=== PATIENT | female | born 1930 | race Caucasian/White ===

== ENCOUNTER → 2016-03-11 | Outpatient (CLI) | payer OTHER ==
[~2016-03-11] MED LIST: ACET325T96 PO; ACET650S10 PR; ALBINS/ INH; ALBU2SYP9 INH; ALEN1TAB PO; AMLO-110 PO; AMOX500C3 PO; APIX1TAB PO; ATOR-24 PO; AZIT500T PO; BENZ100C7 PO; BISA10SU7 PR; BMX1 PO; BUME0.5T3 PO; CALC200T PO; CALC600T9 PO; CEFD300C3 PO; CHOL100010 PO; CHOL20007 PO; CLOP1TAB15 PO; CMD4 PO; DEXT40GE MT; DIGO0.1219 PO; DOXY100C76 PO; DRGTP25 TD; FRRS300 PO; FSMD/70 PO; GABA-113 PO; GFNSR600 PO; GLGKIT IM; GUAI100S16 PO; INSDGI SC; INSDGIPEN SC; INSU1INJ2 SC; IPRASOL4 INH; LACT1TAB26 PO; LATA0.009 OPB; LATA0.5S OPB; LEVO25TA5 PO; LEVO50TA6 PO; LIQUID PROTEIN PO; LNX125 PO; LXP/10 PO; MAGN400T6 PO; MCRK20 PO; METO25TA56 PO; MISCCAP80 PO; MOML PO; MTR500 PO; MULT-506 PO; NVLG SC; NVLGI SC; ONDA4TAB10 SL; OXGN; POTA-74 PO; PRD10 PO; PRLSR20 PO; ROPI0.5T15 PO; RQP25 PO; SALI1SPR3 NAE; SENN1TAB77 PO; SERT50TA PO; SKIN PREP TOP; SODIENE PR; SPRIN PO; SYMIN160 INH; TIOTCAP INH; TRAM-10 PO; TRIA0.1C2 TOP; UMEC1AER PO; UMEC1INH INH; VANC5CAP PO; WARF3TAB PO; WARF3TAB6 PO; WARF4TAB PO; WARF4TAB8 PO; WARF6TAB PO; ZNTT/150 PO; [UNRECOGNIZED DRUG - CODE] OPB; [UNRECOGNIZED DRUG - CODE] PO
[2016-03-11 09:51] LABS: ESTIMATED AVERAGE GLUCOSE 169 mg/dl; HA1C FLAG Normal (Normal)
== END | disposition home or self-care (01) ==
LOC: C.LABUPBEA 09:00
PROVIDERS: ATTEND Family Medicine
DX: E11.9 Type 2 diabetes mellitus without complications (principal); E55.9 Vitamin D deficiency, unspecified

== ENCOUNTER → 2016-03-13 | Outpatient (CLI) | payer OTHER | LOC: C.LABUPBEA 10:59 | PROVIDERS: ATTEND Family Medicine | DX: E03.9 Hypothyroidism, unspecified (principal) ==

== ENCOUNTER 2016-03-28 23:04 | Inpatient (IN) | payer OTHER ==
[~2016-03-28] VITALS: Ht 162.6 cm; Wt 91.9 kg
[~2016-03-28 23:04] MED LIST changes: -ACET650S10 PR; -ALBINS/ INH; -ALBU2SYP9 INH; -AMOX500C3 PO; -APIX1TAB PO; -ATOR-24 PO; -AZIT500T PO; -BENZ100C7 PO; -BISA10SU7 PR; -BMX1 PO; -CALC200T PO; -CEFD300C3 PO; -CHOL20007 PO; -CLOP1TAB15 PO; -CMD4 PO; -DEXT40GE MT; -DOXY100C76 PO; -DRGTP25 TD; -FRRS300 PO; -FSMD/70 PO; -GFNSR600 PO; -GLGKIT IM; -GUAI100S16 PO; -INSDGIPEN SC; -INSU1INJ2 SC; -IPRASOL4 INH; -LACT1TAB26 PO; -LATA0.5S OPB; -LIQUID PROTEIN PO; -LNX125 PO; -MCRK20 PO; -MISCCAP80 PO; -MOML PO; -MTR500 PO; -NVLG SC; -ONDA4TAB10 SL; -PRD10 PO; -ROPI0.5T15 PO; -SERT50TA PO; -SODIENE PR; -SPRIN PO; -TRIA0.1C2 TOP; -UMEC1AER PO; -VANC5CAP PO; -WARF3TAB6 PO; -WARF4TAB8 PO; -WARF6TAB PO; -ZNTT/150 PO; -[UNRECOGNIZED DRUG - CODE] PO
[2016-03-28] MEDS ORDERED: ALBUT/IPRATROP 3MG/0.5MG NEB 3 ML VIAL INH ONE (23:15)
--- NOTE | 2016-03-28 23:18 | EMERGENCY ROOM VISIT NOTE ---
History Report prepared by Bill: Avi Kauffman Under the Supervision of: Dr. Michael Man M.D. First contact with patient: 23:06 Chief Complaint: SHORTNESS OF BREATH Stated Complaint: SHORTNESS OF BREATH/ABDOMINAL PAIN History of Present Illness The patient is a 86 year old female who presents to the Emergency Room with complaints of persistent lower abdominal pain beginning this evening. Per EMS, she has lower abdominal discomfort and denies chest pain and shortness of breath. She was on nighttime BiPAP and is normally on 4 L of oxygen. She has a pacemaker. The patient comes from [facility]. The patient reports having a cough for 2 to 4 years. Source of History: patient, EMS Onset: this evening Position: abdomen Quality: other (abdominal discomfort) Timing: other (persistent) Associated Symptoms: + cough (for 2 to 4 years), No SOB, No chest pain Review of Systems See HPI for pertinent positives & negatives. A total of 10 systems reviewed and were otherwise negative. Past Medical & Surgical Medical Problems: (1) ATRIAL FIBRILLATION (2) CELLULITIS OF LEG (3) CHRONIC KIDNEY DISEASE, STAGE II (MILD) (4) Chronic obstructive lung disease (5) Colonoscopy (6) Congestive Heart Failure (7) COPD (8) Coronary artery disease (9) Diabetes (10) Heart Disease (11) HYPERLIPIDEMIA NEC/NOS (12) Hypertension (13) HYPERTENSION NOS (14) METHICILLIN RESISTANT STAPHYLOCOCCUS AUREUS ELSEWHERE/NOS (15) PERIPH VASCULAR DIS NOS (16) SEPSIS Family History Unobtainable due to patient's condition Social History Smoking Status: Unknown if Ever Smoked Alcohol Use: none Drug Use: none Marital Status: Housing Status: halfway Occupation Status: retired Current/Historical Medications Scheduled Alendronate Sodium (Binosto), 70 MG PO MONDAYS Amlodipine (Norvasc), 5 MG PO DAILY Atorvastatin (Lipitor), 40 MG PO DAILY Bepotastine Besilate (Bepreve), 1 DROP OPB BID Budesonide/Formoterol Fumarate (Symbicort 160/4.5 Inhaler ), 2 PUFFS INH BID Bumetanide (Bumetanide), 1.5 MG PO BID Calcium Carbonate-Vitamin D (Calcium + D), 1 TAB PO BID Cholecalciferol (Vitamin D3), 2,000 UNITS PO DAILY Clopidogrel (Plavix), 75 MG PO DAILY Digoxin (Digoxin), 0.125 MG PO HS Escitalopram Oxalate (Lexapro), 10 MG PO DAILY Gabapentin (Neurontin), 900 MG PO TID Insulin Aspart (Novolog Penfill), 4 SC DIRECTED Insulin Aspart (Novolog), 100 SC DIRECTED Insulin Glargine (Lantus), 24 SC QPM Latanoprost (Xalatan 0.005% Oph Anna), 1 DROPS OPB HS Levothyroxine Sodium (Levothyroxine Sodium), 25 MCG PO Q2D Magnesium Oxide (Mag-Ox), 400 MG PO BID Metoprolol Tartrate (Lopressor) (Lopressor), 25 MG PO BID Multivitamin (Multivitamin), 1 TAB PO DAILY Oxygen (Oxygen), 3 LITER NA CONTINOUS Potassium Chloride (Potassium Chloride Er), 10 MEQ PO DAILY Ropinirole (Requip), 0.5 MG PO DAILY Saline (Saline Nasal [place]), 2 SPRAYS ADELA BID Sennosides (Senokot), 8.6 MG PO DAILY Umeclidinium [place]ima (Incruse Ellipta), 1 PUFF INH DAILY Warfarin Sodium (Coumadin), 3 MG PO Q2D Warfarin Sodium (Coumadin), 4 MG PO Q2D Scheduled PRN Acetaminophen Tab (Tylenol), 650 MG PO Q6 PRN for MILD PAIN Albuterol Sulf (Ventolin), 1 DOSE INH Q4 PRN for Wheezing Magnesium Hydroxide (Milk Of Magnesia), 30 ML PO DIRECTED PRN for Constipation Allergies Coded Allergies: RICHARD Inhibitors (Verified Allergy, Unknown, unknown, 03/29/16) Aspirin (Verified Allergy, Unknown, unknown, 03/29/16) [place]side Atenolol (Verified Allergy, Unknown, unknown; TAKES TOPROL XL W/O PROBLEM , 03/29/16) Cefprozil (Verified Allergy, Unknown, unknown, 03/29/16) TOLERATED ROCEPHIN 02/2014 FOR MULTIPLE DOSES Ciprofloxacin (Verified Allergy, Unknown, unknown, 03/29/16) Codeine (Verified Allergy, Unknown, unknown, 03/29/16) Fluticasone (Verified Allergy, Unknown, Unknown, 03/29/16) Furosemide (Verified Allergy, Unknown, ., 03/29/16) Hydrochlorothiazide (Verified Allergy, Unknown, unknown, 08/10/14) Hydrochlorothiazide w/Triamterene (Verified Allergy, Unknown, unknown, ) Ibuprofen (Verified Allergy, Unknown, unknown; HAS TAKEN ASA W/O PROBLEM, 03/29/16) Lisinopril (Verified Allergy, Unknown, unknown, 03/29/16) Meperidine (Verified Allergy, Unknown, unknown, 03/29/16) Niacinamide (Verified Allergy, Unknown, NICOTINAMIDE, 03/29/16) Penicillins (Verified Allergy, Unknown, UNKNOWN, 03/29/16) TOLERATED ROCEPHIN 02/2014 FOR MULTIPLE DOSES Quinolones (Verified Allergy, Unknown, 03/29/16) Rofecoxib (Verified Allergy, Unknown, unknown, 03/29/16) Salmeterol (Verified Allergy, Unknown, Unknown, 03/29/16) Spironolactone (Verified Allergy, Unknown, unknown, 03/29/16) Statins (Verified Allergy, Unknown, unknown, 03/29/16) Sulfa Antibiotics (Verified Allergy, Unknown, ., 03/29/16) Caffeine (Verified Adverse Reaction, Unknown, unknown, 03/29/16) Physical Exam Vital Signs Date Time Temp Pulse Resp B/P Pulse Ox O2 Delivery O2 Flow Rate FiO2 03/29/16 04:19 75 14 105/54 95 BiPAP 4.0 50 03/29/16 03:50 77 03/29/16 03:44 76 93 50 03/29/16 02:23 90 18 121/61 93 BiPAP 03/29/16 00:51 90 20 106/64 97 BiPAP 03/29/16 00:04 77 95 50 03/29/16 00:04 77 26 95 BiPAP/CPAP 50 03/28/16 23:32 84 95 30 03/28/16 23:16 92 Nasal Cannula 3.0 03/28/16 23:16 93 Nasal Cannula 4.0 03/28/16 23:13 93 Nasal Cannula 4.0 03/28/16 23:13 37.4 87 20 130/55 93 Nasal Cannula 4.0 03/28/16 23:10 84 Physical Exam GENERAL: Patient is a healthy-appearing well-nourished female HEAD: Normocephalic atraumatic EYES: Ocular movements intact pupils equal and react to light OROPHARYNX mucous membranes are moist no exudates present no erythema or edema present NECK: Supple no nuchal rigidity CHEST: Good equal expansion LUNGS: Clear and equal to auscultation CARDIAC: Normal S1 and S2 ABDOMEN: Soft nontender no guarding BACK: No CVA tenderness EXTREMITIES: No pain upon palpation normal muscle strength in all groups no clubbing cyanosis or edema NEURO: Patient is following commands is answering questions appropriately. Alert and oriented x3 Cranial Nerves 2-12 grossly intact Medical Decision & Procedures ER Provider Diagnostic Interpretation: X-ray results as stated below per my interpretation and radiologist interpretation. Other radiology results as stated below per my review and radiologist interpretation: ONE VIEW CHEST As interpreted by me: no evidence of pneumonia, pneumothorax, or congestion. Cardiomegaly and pacemaker noted; evidence of interstitial edema; small pleural effusions. SINGLE VIEW CHEST FINDINGS: An AP, portable, upright chest radiograph is compared to study dated 11/25/2015 and correlated with chest CT dated 12/22/2013. The examination is degraded by portable technique and patient rotation. A single lead cardiac pacemaker is unchanged in position. The heart is enlarged and there is atherosclerotic calcification of the thoracic aorta. There is pulmonary vascular congestion. There are multifocal bilateral airspace opacities. Small pleural effusions are suspected. There is no pneumothorax. The skeletal structures are osteopenic. The bony thorax is grossly intact. IMPRESSION: 1. Cardiomegaly and cardiac pacemaker. There is evidence of congestive failure. 2. There are multifocal bilateral airspace opacities. This could present pulmonary edema and/or multifocal pneumonia. Clinical correlation will be required. Radiographic follow-up to resolution is recommended. 3. Small pleural effusions are suspected. Electronically signed by: Howard Campos M.D. 03/28/2016 11:34 PM Dictated Date/Time: 03/28/2016 11:[address] ABDOMEN & PELVIS: Moderate bilateral pleural effusions with adjacent atelectasis. Mild groundglass opacities and reticulonodular densities in the lingual and right middle lobe. Superimposed pneumonia not excluded. Cardiomegaly, coronary artery calcification, and atherosclerosis of the aorta. No pericardial effusion. Pacemaker leads are present in the right heart, new since comparison. Small hiatal hernia is redemonstrated. No free intraperitoneal air or fluid. Large stool burden throughout the colon with large amount of well-formed stool rectosigmoid region. Correlate for constipation. Dense atherosclerosis of the abdominal aorta and branches, as before with displaced intimal calcifications. Solid organs are within normal limits. Stable fat-containing ventral hernia. Radiologist: Faraz Hooks MD Laboratory Results 03/28/16 23:00 Red Blood Count 4.30, Mean Corpuscular Volume 86.3, Mean Corpuscular Hemoglobin 27.9, Mean Corpuscular Hemoglobin Concent 32.3, Mean Platelet Volume 10.9, Neutrophils (%) (Auto) 87.6, Lymphocytes (%) (Auto) 3.2, Monocytes (%) (Auto) 7.8, Eosinophils (%) (Auto) 0.9, Basophils (%) (Auto) 0.1, Neutrophils # (Auto) 12.97, Lymphocytes # (Auto) 0.48, Monocytes # (Auto) 1.16, Eosinophils # (Auto) 0.13, Basophils # (Auto) 0.01 03/28/16 23:00 Test 03/28/16 23:00 03/28/16 23:29 03/28/16 23:35 03/29/16 02:30 White Blood Count 14.81 K/uL (4.8-10.8) Red Blood Count 4.30 M/uL (4.2-5.4) Hemoglobin 12.0 g/dL (12.0-16.0) Hematocrit 37.1 % (37-47) Mean Corpuscular Volume 86.3 fL (80-100) Mean Corpuscular Hemoglobin 27.9 pg (25-34) Mean Corpuscular Hemoglobin Concent 32.3 g/dl (32-36) Platelet Count 212 K/uL (130-400) Mean Platelet Volume 10.9 fL (7.4-10.4) Neutrophils (%) (Auto) 87.6 % Lymphocytes (%) (Auto) 3.2 % Monocytes (%) (Auto) 7.8 % Eosinophils (%) (Auto) 0.9 % Basophils (%) (Auto) 0.1 % Neutrophils # (Auto) 12.97 K/uL (1.4-6.5) Lymphocytes # (Auto) 0.48 K/uL (1.2-3.4) Monocytes # (Auto) 1.16 K/uL (0.11-0.59) Eosinophils # (Auto) 0.13 K/uL (0-0.5) Basophils # (Auto) 0.01 K/uL (0-0.2) RDW Standard Deviation 56.8 fL (36.4-46.3) RDW Coefficient of Variation 18.0 % (11.5-14.5) Immature Granulocyte % (Auto) 0.4 % Immature Granulocyte # (Auto) 0.06 K/uL (0.00-0.02) Prothrombin Time 35.1 SECONDS (9.0-12.0) Prothromb Time International Ratio 3.1 (0.9-1.1) Est Creatinine Clear Calc Drug Dose 63.6 ml/min Estimated GFR () 90.3 Estimated GFR (Non- 77.9 BUN/Creatinine Ratio 23.4 (10-20) Calcium Level 9.2 mg/dl (8.5-10.1) Total Bilirubin 1.3 mg/dl (0.2-1) Aspartate Amino Transf (AST/SGOT) 76 U/L (15-37) Alanine Aminotransferase (ALT/SGPT) 117 U/L (12-78) Alkaline Phosphatase 560 U/L (45-117) Total Creatine Kinase 50 U/L (26-192) Creatine Kinase MB 1.9 ng/ml (0.5-3.6) Creatine Kinase MB Ratio 3.8 (0-3.0) Total Protein 7.0 gm/dl (6.4-8.2) Albumin 2.3 gm/dl (3.4-5.0) Globulin 4.7 gm/dl (2.5-4.0) Albumin/Globulin Ratio 0.5 (0.9-2) Bedside Hemoglobin 12.9 g/dl (12.0-16.0) Bedside Hematocrit 38 % (37-47) Bedside Sodium 133 mEq/L (135-144) Bedside Potassium 5.0 mEq/L (3.3-5.0) Bedside Chloride 91 mEq/L (101-112) Bedside Total CO2 33 mEq/l (24-31) Anion Gap 15.0 mmol/L (16-25) Bedside Blood Urea Nitrogen 18 mg/dl (7-18) Bedside Creatinine 0.7 mg/dl (0.6-1.3) Bedside Glucose (other) 291 mg/dl (70-99) Bedside Ionized Calcium ([place]) 1.24 mmol/l (1.12-1.32) Influenza Type A (RT-PCR) Neg for Influ A (NEG) Influenza Type B (RT-PCR) Neg for Influ B (NEG) Urine Color YELLOW Urine Appearance CLEAR (CLEAR) Urine pH 5.0 (4.5-7.5) Urine Specific [place] 1.011 (1.000-1.030) Urine Protein NEG (NEG) Urine Glucose (UA) NEG (NEG) Urine Ketones NEG (NEG) Urine Occult Blood 1+ (NEG) Urine Nitrite NEG (NEG) Urine Bilirubin NEG (NEG) Urine Urobilinogen NEG (NEG) Urine Leukocyte Esterase MODERATE (NEG) Urine WBC (Auto) 10-30 /hpf (0-5) Urine RBC (Auto) 0-4 /hpf (0-4) Urine Hyaline Casts (Auto) 1-5 /lpf (0-5) Urine Epithelial Cells (Auto) 20-30 /lpf (0-5) Urine Bacteria (Auto) NEG (NEG) Test 03/29/16 04:43 Labs reviewed by ED physician. Medications Administered Medications (Trade) Dose Ordered Sig/Tariq Route Start Time Stop Time Status Last Admin Dose Admin Albuterol/ Ipratropium (Duoneb) 12 ml ONE ONCE INH 03/28/16 23:15 03/28/16 23:17 DC 03/28/16 00:04 12 ML Bumetanide (Bumex IV) 1 mg NOW STAT IV 03/28/16 23:33 03/28/16 23:34 DC 03/28/16 23:55 1 MG Morphine Sulfate (MoRPHine SULFATE INJ) 4 mg NOW STAT IV 03/28/16 23:34 03/28/16 23:35 DC 03/28/16 23:55 4 MG Ondansetron HCl (Zofran Inj) 4 mg NOW STAT IV 03/28/16 23:34 03/28/16 23:35 DC 03/28/16 23:56 4 MG Ceftriaxone Sodium 1 gm 1 gm NOW STAT IV 03/28/16 23:39 03/28/16 23:42 DC 03/28/16 23:56 1 GM Azithromycin 500 mg/Dextrose 255 ml @ 125 mls/hr ONE STAT IV 03/28/16 23:39 03/29/16 01:41 DC 03/29/16 00:51 125 MLS/HR Vancomycin HCl/ Sodium Chloride (Vancomycin Inj/ Nss 250ml) 270 ml @ 125 mls/hr NOW STAT IV 03/28/16 23:39 1/21/17 01:48 DC 03/29/16 03:05 125 MLS/HR ECG Indication: abdominal pain Rate (beats per minute): 83 Rhythm: normal sinus Findings: T-wave inversion (Inferior), no acute ischemic change, no ectopy ED Course 230: Past medical records reviewed. The patient was evaluated in room B8. A complete history and physical examination was performed. 2315: Ordered Duoneb 12 ml INH. 2333: Ordered Bumetanide 1 mg IV. 2334: Ordered Zofran Inj 4 mg IV, and Morphine Sulfate 4 mg IV. 2339: Ordered Vancomycin HCl 1,000 mg/Sodium Chloride 270 ml @ 125 mls/hr IV, Azithromycin 500 mg/Dextrose 255 ml @ 125 mls/hr IV, and Rocephin Inj 1 gm IV. 0230: I discussed the patient's case with Dr. Ontiveros, he has agreed to evaluate the patient for further management and care. 0231: Upon reexamination the patient is hemodynamically stable. I discussed results and treatment plan with the patient. She verbalizes agreement and understanding. I spoke with Dr. Ontiveros from the [facility] Hospitalist Service. The patient will be evaluated for further management. Medical Decision This is an 86-year-old female who presents emergency department complaining of shortness of breath. The patient appears to have a multifocal pneumonia on chest x-ray and also has an elevation in her white blood count. Her flu swab was negative. The patient was placed on BiPAP and given an hour-long breathing treatment. She was started on Zosyn, azithromycin as well as vancomycin. Repeat examination revealed improvement patient's symptoms. The patient was tender in the right lower quadrant therefore sent for CAT scan of the abdomen pelvis however this did not show any acute process. I did discuss the case with the hospitalist service who agreed to admit the patient. Patient was in agreement with the treatment plan. Consults Time Called: [phone] Consulting Physician: Dr. Ontiveros - [facility] Returned Call: [phone] I discussed the patient's case with Dr. Ontiveros, he has agreed to evaluate the patient for further management and care. Impression Primary Impression: Pneumonia Critical Care I have personally spent greater than 30 minutes of critical care time in the direct management of this patient. This includes bedside care, interpretation of diagnostic studies, and testing, discussion with consultants, patient, and family members, and other required patient management activities. This 30 minutes is in excess of all separately billable procedures. Scribe Attestation The scribe's documentation has been prepared under my direction and personally reviewed by me in its entirety. I confirm that the note above accurately reflects all work, treatment, procedures, and medical decision making performed by me. Departure Information Dispostion Being Evaluated By Hospitalist Referrals Jane Victoria (PCP) Patient Instructions My [facility] Problem Qualifiers Primary Impression: Pneumonia Pneumonia type: due to unspecified organism Laterality: bilateral Lung location: unspecified part of lung Qualified Codes: J18.9 - Pneumonia, unspecified organism
[2016-03-28] MEDS ORDERED: OPTIRAY 320 IV PRN (23:30)
[2016-03-28 23:32] VITALS: PULSE 84; O2SAT 95
[2016-03-28] MEDS ORDERED: BUMETANIDE SOLN 1 MG/4 ML VIAL IV STA (23:33)
[2016-03-28] MEDS ORDERED: MoRPHine SULFATE 4 MG/ML 1 ML CARP\\VIAL IV STA (23:34)
[2016-03-28] MEDS ORDERED: ONDANSETRON INJ 2 MG/ML 2 ML VIAL IV STA (23:34)
[2016-03-28 23:36] LABS: BASO % 0.1 %; BASO ABS # 0.01 K/uL (0-0.2); COMPLETE YES; EOS % 0.9 %; HEMATOCRIT 37.1 % (37-47); IG% 0.4 %; LYMPH % 3.2 %; LYMPH ABS # 0.48 K/uL (1.2-3.4); MEAN CELL VOLUME 86.3 fL (80-100); MEAN CORPUSCULAR HEMOGLOBIN 27.9 pg (25-34); MEAN CORPUSCULAR HGB CONC 32.3 g/dl (32-36); MEAN PLATELET VOLUME 10.9 fL (7.4-10.4); MONO % 7.8 %; NEUT % 87.6 %; PLATELET COUNT 212 K/uL (130-400); WHITE BLOOD COUNT 14.81 K/uL (4.8-10.8)
--- NOTE | 2016-03-28 23:36 | DIAGNOSTIC IMAGING REPORT ---
SINGLE VIEW CHEST CLINICAL HISTORY: Dyspnea. FINDINGS: An AP, portable, upright chest radiograph is compared to study dated 11/25/2015 and correlated with chest CT dated 12/22/2013. The examination is degraded by portable technique and patient rotation. A single lead cardiac pacemaker is unchanged in position. The heart is enlarged and there is atherosclerotic calcification of the thoracic aorta. There is pulmonary vascular congestion. There are multifocal bilateral airspace opacities. Small pleural effusions are suspected. There is no pneumothorax. The skeletal structures are osteopenic. The bony thorax is grossly intact. IMPRESSION: 1. Cardiomegaly and cardiac pacemaker. There is evidence of congestive failure. 2. There are multifocal bilateral airspace opacities. This could present pulmonary edema and/or multifocal pneumonia. Clinical correlation will be required. Radiographic follow-up to resolution is recommended. 3. Small pleural effusions are suspected. Electronically signed by: Howard Campos M.D. 03/28/2016 11:34 PM Dictated Date/Time: 03/28/2016 11:32 PM
[2016-03-28] MEDS ORDERED: CEFTRIAXONE SOD INJ 1 GM ADDVIAL IV STA (23:39)
[2016-03-28] MEDS ORDERED: VANCOMYCIN INJ 1,000 MG in SODIUM CHLORIDE 0.9% 250ML 250 ML IV STA (23:39)
[2016-03-28] MEDS ORDERED: AZITHROMYCIN IV 500 MG in DEXTROSE 5% 250ML 250 ML IV STA (23:39)
[2016-03-28 23:45] LABS: ISTAT CREATININE 0.7 mg/dl (0.6-1.3); ISTAT HEMOGLOBIN 12.9 g/dl (12.0-16.0); ISTAT IONIZED CALCIUM 1.24 mmol/l (1.12-1.32)
[2016-03-28 23:51] LABS: INR 3.1 (0.9-1.1); PROTHROMBIN TIME (PATIENT) 35.1 SECONDS (9.0-12.0)
[2016-03-28 23:52] LABS: BUN/CREATININE RATIO 23.4 (10-20); CALCIUM 9.2 mg/dl (8.5-10.1); CREATININE 0.7 mg/dl (0.60-1.20); POTASSIUM 4.9 mmol/L (3.5-5.1)
[2016-03-28] MEDS ORDERED: CHOL20007 PO (23:52)
[2016-03-28] MEDS ORDERED: [UNRECOGNIZED DRUG - CODE] PO (23:55)
[2016-03-28] MEDS ORDERED: INSDGI SC (23:59)
[2016-03-29] VITALS (11 sets, daily range): BP systolic 130–155; BP diastolic 52–55; PULSE 59–77; TEMP 36.4–36.8; O2SAT 91–100; Ht 162.6 cm; Wt 91.9 kg
[2016-03-29] MEDS ORDERED: ATOR-24 PO (00:03)
[2016-03-29] MEDS ORDERED: CLOP1TAB15 PO (00:06)
[2016-03-29] MEDS ORDERED: ROPI0.5T15 PO (00:07)
[2016-03-29] MEDS ORDERED: LATA0.5S OPB (00:10)
[2016-03-29 00:11] LABS: ALB/GLOB RATIO 0.5 (0.9-2); CKMB/CK RATIO 3.8 (0-3.0)
[2016-03-29] MEDS ORDERED: INSU1INJ2 SC (00:16)
[2016-03-29] MEDS ORDERED: NVLG SC (00:24)
[2016-03-29] MEDS ORDERED: ALBU2SYP9 INH (00:32)
[2016-03-29] MEDS ORDERED: MOML PO (00:33)
[2016-03-29 01:50] LABS: INFLUENZA A PCR Neg for Influ A (NEG); INFLUENZA B PCR Neg for Influ B (NEG)
[2016-03-29 03:32] LABS: URINE APPEARANCE CLEAR (CLEAR); URINE BILIRUBIN NEG (NEG); URINE COLOR YELLOW; URINE EPITHELIAL CELL AUTO 20-30 /lpf (0-5); URINE NITRITE NEG (NEG); URINE SPECIFIC GRAVITY 1.011 (1.000-1.030); UROBILINOGEN NEG (NEG); ZZURINE CULT IF INDIC CATH YES
[2016-03-29 03:36] LABS: MANUAL MICROSCOPIC REQUIRED? NO; REVIEW REQ? NO
[2016-03-29] MEDS ORDERED: ALBUTEROL 0.083% NEBU SOLN 3 ML VIAL INH PRN (03:45)
--- NOTE | 2016-03-29 04:11 | History and Physical ---
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 Presents form a NH with complaints of abdominal pain for 5 days, SOB and a cough which she states is chronic but may be worsening. Her abdominal pain is described as diffuse without nausea or vomiting. She has had some constipation. Denies diarrhea. A CT of the abdomen was obtained in the ER which was consistent with constipation and also revealed what is likely a B/L PNM in addition to CHF. Initial labs reveal an elevated troponin, LFT elevations and hyperglycemia. 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 (15) 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 (16) SEPSIS Status: Resolved 17) Echo 2013 shows a preserved EF, severe and severe pulmonary hypertension 18) Morbid obesity Family History Unobtainable due to patient's condition Social History Smoking Status: Former Smoker Drug Use: none Marital Status: Housing status: assisted living Occupational Status: retired Immunizations History of Influenza Vaccine: No Influenza Vaccine Date: Jun 01, 2011 History of Tetanus Vaccine?: utd History of Pneumococcal: Yes Pneumococcal Date: Sep 02, 2012 History of Hepatitis B Vaccine: No Multi-Drug Resistant Organisms History of MDRO: Yes Type of MDRO: MRSA Allergies Coded Allergies: RICHARD Inhibitors (Verified Allergy, Unknown, unknown, 03/29/16) Aspirin (Verified Allergy, Unknown, unknown, 03/29/16) [place] Atenolol (Verified Allergy, Unknown, unknown; TAKES TOPROL XL W/O PROBLEM , 1/21/17) Cefprozil (Verified Allergy, Unknown, unknown, 03/29/16) TOLERATED ROCEPHIN 02/2014 FOR MULTIPLE DOSES Ciprofloxacin (Verified Allergy, Unknown, unknown, 03/29/16) Codeine (Verified Allergy, Unknown, unknown, 03/29/16) Fluticasone (Verified Allergy, Unknown, Unknown, 03/29/16) Furosemide (Verified Allergy, Unknown, ., 03/29/16) Hydrochlorothiazide (Verified Allergy, Unknown, unknown, 08/10/14) Hydrochlorothiazide w/Triamterene (Verified Allergy, Unknown, unknown, ) Ibuprofen (Verified Allergy, Unknown, unknown; HAS TAKEN ASA W/O PROBLEM, 03/29/16) Lisinopril (Verified Allergy, Unknown, unknown, 03/29/16) Meperidine (Verified Allergy, Unknown, unknown, 03/29/16) Niacinamide (Verified Allergy, Unknown, NICOTINAMIDE, 03/29/16) Penicillins (Verified Allergy, Unknown, UNKNOWN, 03/29/16) TOLERATED ROCEPHIN 02/2014 FOR MULTIPLE DOSES Quinolones (Verified Allergy, Unknown, 03/29/16) Rofecoxib (Verified Allergy, Unknown, unknown, 03/29/16) Salmeterol (Verified Allergy, Unknown, Unknown, 03/29/16) Spironolactone (Verified Allergy, Unknown, unknown, 03/29/16) Statins (Verified Allergy, Unknown, unknown, 03/29/16) Sulfa Antibiotics (Verified Allergy, Unknown, ., 03/29/16) Caffeine (Verified Adverse Reaction, Unknown, unknown, 03/29/16) Home Medications Scheduled Alendronate Sodium (Binosto), 70 MG PO MONDAYS Amlodipine (Norvasc), 5 MG PO DAILY Atorvastatin (Lipitor), 40 MG PO DAILY Bepotastine Besilate (Bepreve), 1 DROP OPB BID Budesonide/Formoterol Fumarate (Symbicort 160/4.5 Inhaler ), 2 PUFFS INH BID Bumetanide (Bumetanide), 1.5 MG PO BID Calcium Carbonate-Vitamin D (Calcium + D), 1 TAB PO BID Cholecalciferol (Vitamin D3), 2,000 UNITS PO DAILY Clopidogrel (Plavix), 75 MG PO DAILY Digoxin (Digoxin), 0.125 MG PO HS Escitalopram Oxalate (Lexapro), 10 MG PO DAILY Gabapentin (Neurontin), 900 MG PO TID Insulin Aspart (Novolog Penfill), 4 SC DIRECTED Insulin Aspart (Novolog), 100 SC DIRECTED Insulin Glargine (Lantus), 24 SC QPM Latanoprost (Xalatan 0.005% Oph Anna), 1 DROPS OPB HS Levothyroxine Sodium (Levothyroxine Sodium), 25 MCG PO Q2D Magnesium Oxide (Mag-Ox), 400 MG PO BID Metoprolol Tartrate (Lopressor) (Lopressor), 25 MG PO BID Multivitamin (Multivitamin), 1 TAB PO DAILY Oxygen (Oxygen), 3 LITER NA CONTINOUS Potassium Chloride (Potassium Chloride Er), 10 MEQ PO DAILY Ropinirole (Requip), 0.5 MG PO DAILY Saline (Saline Nasal [place]), 2 SPRAYS ADELA BID Sennosides (Senokot), 8.6 MG PO DAILY Umeclidinium [place] (Incruse Ellipta), 1 PUFF INH DAILY Warfarin Sodium (Coumadin), 3 MG PO Q2D Warfarin Sodium (Coumadin), 4 MG PO Q2D Scheduled PRN Acetaminophen Tab (Tylenol), 650 MG PO Q6 PRN for MILD PAIN Albuterol Sulf (Ventolin), 1 DOSE INH Q4 PRN for Wheezing Magnesium Hydroxide (Milk Of Magnesia), 30 ML PO DIRECTED PRN for Constipation Review of Systems Constitutional: + weakness, No chills, No fever, No sweats Eyes: No worsening of vision ENT: No hearing loss, No nasal symptoms, No unusual epistaxis Respiratory: + cough, + dyspnea on exertion, + shortness of breath, + sputum Cardiovascular: + orthopnea, No chest pain Abdomen: + constipation, + nausea, + pain, No diarrhea, No vomiting Musculoskeletal: No joint pain Genitourinary - Female: No dysuria, No urinary frequency, No urinary urgency Neurologic: No memory loss, No paralysis Psychiatric: No depression symptoms Endocrine: + fatigue Integumentary: No rash Allergic / Immunologic: No environmental allergies Physical Exam Vital Signs Date Time Temp Pulse Resp B/P Pulse Ox O2 Delivery O2 Flow Rate FiO2 03/29/16 02:23 90 18 121/61 93 BiPAP 03/29/16 00:51 90 20 106/64 97 BiPAP 03/29/16 00:04 77 95 50 03/29/16 00:04 77 26 95 BiPAP/CPAP 50 03/28/16 23:32 84 95 30 03/28/16 23:16 92 Nasal Cannula 3.0 03/28/16 23:16 93 Nasal Cannula 4.0 03/28/16 23:13 93 Nasal Cannula 4.0 03/28/16 23:13 37.4 87 20 130/55 93 Nasal Cannula 4.0 03/28/16 23:10 84 General Appearance: WD/WN, no apparent distress Head: normocephalic ENT: normal ENT inspection, pharynx normal Neck: supple, no JVD Respiratory/Chest: chest non-tender, + decreased breath sounds, + pertinent finding (Exam is very limited due to habitus) Cardiovascular: + systolic murmur, + irregularly irregular Abdomen/GI: + distended Back: normal inspection Extremities/Musculoskelatal: + pertinent finding (R BKA - L edema) Neurologic/Psych: gwot ia/ilo intelligence support II-XII nml as tested, no motor/sensory deficits, alert Skin: normal color, warm/dry, no rash Diagnostics Laboratory Results Results Past 24 Hours Test 03/28/16 23:00 03/28/16 23:29 03/28/16 23:35 03/29/16 02:30 Range/Units White Blood Count 14.81 4.8-10.8 K/uL Red Blood Count 4.30 4.2-5.4 M/uL Hemoglobin 12.0 12.0-16.0 g/dL Hematocrit 37.1 37-47 % Mean Corpuscular Volume 86.3 80-100 fL Mean Corpuscular Hemoglobin 27.9 25-34 pg Mean Corpuscular Hemoglobin Concent 32.3 32-36 g/dl Platelet Count 212 130-400 K/uL Mean Platelet Volume 10.9 7.4-10.4 fL Neutrophils (%) (Auto) 87.6 % Lymphocytes (%) (Auto) 3.2 % Monocytes (%) (Auto) 7.8 % Eosinophils (%) (Auto) 0.9 % Basophils (%) (Auto) 0.1 % Neutrophils # (Auto) 12.97 1.4-6.5 K/uL Lymphocytes # (Auto) 0.48 1.2-3.4 K/uL Monocytes # (Auto) 1.16 0.11-0.59 K/uL Eosinophils # (Auto) 0.13 0-0.5 K/uL Basophils # (Auto) 0.01 0-0.2 K/uL RDW Standard Deviation 56.8 36.4-46.3 fL RDW Coefficient of Variation 18.0 11.5-14.5 % Immature Granulocyte % (Auto) 0.4 % Immature Granulocyte # (Auto) 0.06 0.00-0.02 K/uL Prothrombin Time 35.1 9.0-12.0 SECONDS Prothromb Time International Ratio 3.1 0.9-1.1 Sodium Level 134 136-145 mmol/L Potassium Level 4.9 3.5-5.1 mmol/L Chloride Level 94 98-107 mmol/L Carbon Dioxide Level 31 21-32 mmol/L Anion Gap 9.0 15.0 16-25 mmol/L Blood Urea Nitrogen 16 7-18 mg/dl Creatinine 0.70 0.60-1.20 mg/dl Est Creatinine Clear Calc Drug Dose 63.6 ml/min Estimated GFR () 90.3 Estimated GFR (Non- 77.9 BUN/Creatinine Ratio 23.4 10-20 Random Glucose 281 70-99 mg/dl Calcium Level 9.2 8.5-10.1 mg/dl Total Bilirubin 1.3 0.2-1 mg/dl Aspartate Amino Transf (AST/SGOT) 76 15-37 U/L Alanine Aminotransferase (ALT/SGPT) 117 12-78 U/L Alkaline Phosphatase 560 45-117 U/L Total Creatine Kinase 50 26-192 U/L Creatine Kinase MB 1.9 0.5-3.6 ng/ml Creatine Kinase MB Ratio 3.8 0-3.0 Troponin I 0.074 0-0.045 ng/ml Total Protein 7.0 6.4-8.2 gm/dl Albumin 2.3 3.4-5.0 gm/dl Globulin 4.7 2.5-4.0 gm/dl Albumin/Globulin Ratio 0.5 0.9-2 Bedside Hemoglobin 12.9 12.0-16.0 g/dl Bedside Hematocrit 38 37-47 % Bedside Sodium 133 135-144 mEq/L Bedside Potassium 5.0 3.3-5.0 mEq/L Bedside Chloride 91 101-112 mEq/L Bedside Total CO2 33 24-31 mEq/l Bedside Blood Urea Nitrogen 18 7-18 mg/dl Bedside Creatinine 0.7 0.6-1.3 mg/dl Bedside Glucose (other) 291 70-99 mg/dl Bedside Ionized Calcium ([place]) 1.24 1.12-1.32 mmol/l Influenza Type A (RT-PCR) Neg for Influ A NEG Influenza Type B (RT-PCR) Neg for Influ B NEG Urine Color YELLOW Urine Appearance CLEAR CLEAR Urine pH 5.0 4.5-7.5 Urine Specific [place] 1.011 1.000-1.030 Urine Protein NEG NEG Urine Glucose (UA) NEG NEG Urine Ketones NEG NEG Urine Occult Blood 1+ NEG Urine Nitrite NEG NEG Urine Bilirubin NEG NEG Urine Urobilinogen NEG NEG Urine Leukocyte Esterase MODERATE NEG Urine WBC (Auto) 10-30 0-5 /hpf Urine RBC (Auto) 0-4 0-4 /hpf Urine Hyaline Casts (Auto) 1-5 0-5 /lpf Urine Epithelial Cells (Auto) 20-30 0-5 /lpf Urine Bacteria (Auto) NEG NEG Test 03/29/16 03:58 Range/Units Microbiology Results 03/29/16 Urine Culture, Received Pending Diagnostic Radiology CT abdomen consistent with constipation, CHF and B/L PNM EKG Sinus - inf T wave inversions Impression Assessment and Plan 86 y/o F with a host of medical issues including 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 Presents form a NH with complaints of abdominal pain for 5 days, SOB and a cough which she states is chronic but may be worsening. Her abdominal pain is described as diffuse without nausea or vomiting. She has had some constipation. Denies diarrhea. A CT of the abdomen was obtained in the ER which was consistent with constipation and also revealed what is likely a B/L PNM in addition to CHF. Initial labs reveal an elevated troponin, LFT elevations and hyperglycemia. 1) SOB/COPD/PNM - Pt is maintaining an adequate saturation with BIPAP which she uses QHS. She is more focused on her abdominal pain at the time of admission. We will provide duonebs/albuterol and have started her on Cef/Zithro - She received a dose of Vanc in the ER presumably due to her healthcare setting and previous MRSA history however clinically she does not have a severe PNM and we will treat for CAP pending culture results. Her lung exam is limited however there is no clear wheezing at present. Would consider IV steroids if her respiratory status worsens. 2) CHF - received a dose of Bumex in ER - this may have helped her resp status. She will remain on her daily Bumex and B brad. Additional diuretics can be provided PRN for worsening hypoxia as her volume status is difficult to discern. 3) Abdominal pain - CT consistent with constipation/impaction - will provide a milk and molasses enema and keep on stool softeners/laxatives. 4) CAD - Slight troponin elevation may be due to demand - she does not c/o CP. Troponin will be trended - cont B brad, Statin and ASA - she is anticoagulated with Coumadin. 5) AF - sinus on admission - cont B brad - she is therapeutic on Coumadin. 6) Severe - caution with over diuresis - would attempt to avoid hypotensive episodes. 7) DM - Lantus + SS Full code - Coumadin prophylaxis Total time for this admit including review of extensive outpt recrds, meds, labs , imagin - discussion with ER MD and pt 45 min Level of Care Telemetry Resuscitation Status FULL RESUSCITATION VTE Prophylaxis Risk Level: High Given or contraindicated: Warfarin (Coumadin)
[2016-03-29] MEDS ORDERED: MILK AND MOLASSES ENEMA PR ONE (08:00)
[2016-03-29] MEDS: INSULIN ASPART 100 UNITS/ML 3 ML PEN SC SCH ×4 (08:01→21:15)
[2016-03-29] MEDS: LEVOTHYROXINE 25 MCG TAB PO SCH (08:02)
[2016-03-29] MEDS: SODIUM CHLORIDE 0.65% NA SOLN 45 ML (OCEAN) NAE SCH ×2 (08:02→20:16)
[2016-03-29] MEDS: BUDESONIDE/FORMOTEROL FUMARATE 160/4.5 60 PUFFS/INHALER INH SCH ×2 (08:02→20:13)
[2016-03-29] MEDS: BUMETANIDE 1 MG TAB PO SCH ×2 (08:03→16:30)
[2016-03-29] MEDS: POTASSIUM CHLORIDE 10 MEQ TABCR PO SCH (08:04)
[2016-03-29] MEDS: ATORVASTATIN 40 MG TAB PO SCH (08:04)
[2016-03-29] MEDS: ESCITALOPRAM OXALATE 10 MG TAB PO SCH (08:04)
[2016-03-29] MEDS: MAGNESIUM OXIDE 400 MG TAB PO SCH ×2 (08:05→20:14)
[2016-03-29] MEDS: METOPROLOL TARTRATE 25 MG TAB PO SCH ×2 (08:05→20:12)
[2016-03-29] MEDS: CLOPIDOGREL BISULFATE 75 MG TAB PO SCH (08:06)
[2016-03-29] MEDS: GABAPENTIN 300 MG CAP PO SCH ×3 (08:06→20:12)
[2016-03-29] MEDS: AMLODIPINE BESYLATE 5 MG TAB PO SCH (08:06)
[2016-03-29] MEDS: ROPINIROLE HCL 1 MG TAB PO SCH (08:07)
[2016-03-29] MEDS: SENNA 8.6 MG TAB PO SCH (08:07)
[2016-03-29] MEDS: CHOLECALCIFEROL 1000 INTER.UNIT TAB PO SCH (08:08)
--- NOTE | 2016-03-29 08:27 | DIAGNOSTIC IMAGING REPORT ---
CT SCAN OF THE ABDOMEN AND PELVIS WITH IV CONTRAST CLINICAL HISTORY: Generalized abdominal pain. COMPARISON STUDY: Abdominal CT dated 08/10/2014. TECHNIQUE: Following the IV administration of 116 cc of Optiray 320, CT scan of the abdomen and pelvis is performed from the lung bases to the proximal femora. Images are reviewed in the axial, sagittal, and coronal planes. IV contrast was administered without complication. Automated dose control exposure was utilized. The examination is degraded by streak artifact from the patient's arms which could not be elevated above the abdomen or pelvis. The examination is also degraded by large body habitus, and streak artifact from the body wall abutting the CT gantry. CT DOSE: 1851.72 mGy.cm FINDINGS: Lung bases: A pacemaker is present in the left chest wall. A lead terminates in the right ventricle. The heart is enlarged and without pericardial effusion. The coronary arteries are calcified. There are moderate pleural effusions with bibasilar consolidation. Liver: The contrast-enhanced liver is normal in size, contour, and attenuation. There is no intrahepatic biliary ductal dilatation. The hepatic veins and portal veins are patent. Gallbladder: Unremarkable. Spleen: Normal in size and attenuation. Pancreas: Unremarkable. Adrenal glands: Atrophic and grossly unremarkable. Kidneys: The contrast enhanced kidneys demonstrate cortical atrophy and are without hydronephrosis. The kidneys enhance symmetrically. Foci of cortical scarring are seen in the left lower pole. Abdominal vasculature: The abdominal aorta is normal in course and caliber noting advanced atherosclerotic calcification. Bowel: There is rectosigmoid fecal impaction. Moderate to severe constipation is seen throughout the remainder of the colon. No bowel obstruction is seen. The appendix is well-visualized and normal. Peritoneum: There is no intraperitoneal free air or abdominal ascites. There is a fat-containing umbilical hernia. Lymphadenopathy: None. Pelvic viscera: The bladder is distended. The bladder wall appears thickened and trabeculated and there are bladder diverticula. The appearance is consistent with chronic outlet obstruction. The uterus is grossly unremarkable. No adnexal lesion is seen. Skeletal structures: The skeletal structures are osteopenic. There is moderate to advanced lumbosacral spondylosis as well as scoliosis. No lytic or blastic lesions are seen. IMPRESSION: 1. Streak artifact degraded examination as above. 2. There are moderate pleural effusions with bibasilar airspace consolidation. Correlate clinically for evidence of pneumonia, aspiration pneumonitis, and/or pulmonary edema. 3. Cardiomegaly and cardiac pacemaker. 4. There are no acute infectious or inflammatory findings in the abdomen or pelvis. 5. Moderate to severe constipation with rectosigmoid fecal impaction. No bowel obstruction is seen. 6. The appearance of the bladder is consistent with chronic outlet obstruction. 7. Additional findings as above. Electronically signed by: Howard Campos M.D. 03/29/2016 8:25 AM Dictated Date/Time: 03/29/2016 8:18 AM
[2016-03-29] MEDS: ALBUT/IPRATROP 3MG/0.5MG NEB 3 ML VIAL INH SCH ×3 (10:01→19:07)
--- NOTE | 2016-03-29 10:16 | Progress Note ---
Subjective Date of Service: Mar 29, 2016. Subjective Pt evaluation today including: conversation w/ patient, conversation w/ family , physical exam, chart review, lab review, review of studies, review of inpatient medication list Voiding: hamilton catheter in place Problem List Was able to off nonrebreather, now in nasal cannula oxygen 3 L per min this, she is awake and alert and orientated, conversational, Is eating some breakfast Complain some cough with mucoid mucus's frame difficult to cough up, No other complaint Review of Systems Constitutional: + fatigue, + weakness, No chills, No fever, No problem reported , No sweats, No weight loss Eyes: No diplopia, No discharge, No eye pain, No redness, No worsening of vision ENT: No dental problems, No hearing loss, No nasal symptoms, No sore throat, No tinnitus, No trouble swallowing, No unusual epistaxis Respiratory: + cough, + shortness of breath, No dyspnea at rest, No dyspnea on exertion, No hemoptysis, No sputum, No wheezing Cardiac: No PND, No chest pain, No claudication, No edema, No orthopnea, No palpitations Abdomen: No constipation, No diarrhea, No nausea, No pain, No vomiting Musculoskeletal: No calf pain, No joint pain, No muscle pain, No swelling Female : No abnormal vaginal bleeding, No dysuria, No hematuria, No incontinence, No urinary frequency, No vaginal discharge Neurologic: No balance problems, No memory loss, No numbness/tingling, No paralysis, No vertigo, No weakness Psychiatric: No anhedonism, No anxiety, No depression symptoms, No insomnia, No substance abuse Heme: No abnormal bleeding/bruising, No clotting problems, No night sweats, No swollen lymph nodes Endo: No excessive thirst, No excessive urination, No fatigue Skin: No bleeding, No color change, No itch, No new/changing skin lesions, No rash Objective Vital Signs Date Time Temp Pulse Resp B/P Pulse Ox O2 Delivery O2 Flow Rate FiO2 03/29/16 10:02 63 20 93 Nasal Cannula 5.0 03/29/16 07:01 36.8 62 17 146/54 91 Nasal Cannula 3.0 03/29/16 06:37 68 12 110/52 96 03/29/16 06:00 68 12 110/52 96 BiPAP 4.0 50 03/29/16 05:34 71 95 50 03/29/16 05:00 71 13 112/55 95 BiPAP 4.0 50 03/29/16 04:19 75 14 105/54 95 BiPAP 4.0 50 03/29/16 03:50 77 03/29/16 03:44 76 93 50 03/29/16 02:23 90 18 121/61 93 BiPAP 03/29/16 00:51 90 20 106/64 97 BiPAP 03/29/16 00:04 77 95 50 03/29/16 00:04 77 26 95 BiPAP/CPAP 50 03/28/16 23:32 84 95 30 03/28/16 23:16 92 Nasal Cannula 3.0 03/28/16 23:16 93 Nasal Cannula 4.0 03/28/16 23:13 93 Nasal Cannula 4.0 03/28/16 23:13 37.4 87 20 130/55 93 Nasal Cannula 4.0 03/28/16 23:10 84 Physical Exam General Appearance: WD/WN, no apparent distress, + obese Eyes: normal inspection, PERRL, EOMI, sclerae normal ENT: normal ENT inspection, hearing grossly normal, pharynx normal Neck: supple, no adenopathy, thyroid normal, no JVD, no carotid bruits, trachea midline Respiratory/Chest: chest non-tender, normal breath sounds, no respiratory distress, no accessory muscle use, + decreased breath sounds, + rales Cardiovascular: regular rate, rhythm, no edema, no gallop, no JVD, no murmur Abdomen: normal bowel sounds, non tender, soft, no organomegaly, no pulsatile mass, + pertinent finding (Hamilton catheter in place with yellow light urine) Extremities: normal range of motion, non-tender, normal inspection, no pedal edema, no calf tenderness, normal capillary refill, pelvis stable Neurologic/Psychiatric: head butler II-XII nml as tested, no motor/sensory deficits, alert, normal mood/affect, oriented x 3 Skin: normal color, warm/dry, no rash Lymphatic: no adenopathy Laboratory Results Last 24 Hours Test 03/28/16 23:00 03/28/16 23:29 03/28/16 23:35 03/29/16 02:30 White Blood Count 14.81 K/uL Red Blood Count 4.30 M/uL Hemoglobin 12.0 g/dL Hematocrit 37.1 % Mean Corpuscular Volume 86.3 fL Mean Corpuscular Hemoglobin 27.9 pg Mean Corpuscular Hemoglobin Concent 32.3 g/dl Platelet Count 212 K/uL Mean Platelet Volume 10.9 fL Neutrophils (%) (Auto) 87.6 % Lymphocytes (%) (Auto) 3.2 % Monocytes (%) (Auto) 7.8 % Eosinophils (%) (Auto) 0.9 % Basophils (%) (Auto) 0.1 % Neutrophils # (Auto) 12.97 K/uL Lymphocytes # (Auto) 0.48 K/uL Monocytes # (Auto) 1.16 K/uL Eosinophils # (Auto) 0.13 K/uL Basophils # (Auto) 0.01 K/uL RDW Standard Deviation 56.8 fL RDW Coefficient of Variation 18.0 % Immature Granulocyte % (Auto) 0.4 % Immature Granulocyte # (Auto) 0.06 K/uL Prothrombin Time 35.1 SECONDS Prothromb Time International Ratio 3.1 Sodium Level 134 mmol/L Potassium Level 4.9 mmol/L Chloride Level 94 mmol/L Carbon Dioxide Level 31 mmol/L Anion Gap 9.0 mmol/L 15.0 mmol/L Blood Urea Nitrogen 16 mg/dl Creatinine 0.70 mg/dl Est Creatinine Clear Calc Drug Dose 63.6 ml/min Estimated GFR () 90.3 Estimated GFR (Non- 77.9 BUN/Creatinine Ratio 23.4 Random Glucose 281 mg/dl Calcium Level 9.2 mg/dl Total Bilirubin 1.3 mg/dl Aspartate Amino Transf (AST/SGOT) 76 U/L Alanine Aminotransferase (ALT/SGPT) 117 U/L Alkaline Phosphatase 560 U/L Total Creatine Kinase 50 U/L Creatine Kinase MB 1.9 ng/ml Creatine Kinase MB Ratio 3.8 Troponin I 0.074 ng/ml Total Protein 7.0 gm/dl Albumin 2.3 gm/dl Globulin 4.7 gm/dl Albumin/Globulin Ratio 0.5 Bedside Hemoglobin 12.9 g/dl Bedside Hematocrit 38 % Bedside Sodium 133 mEq/L Bedside Potassium 5.0 mEq/L Bedside Chloride 91 mEq/L Bedside Total CO2 33 mEq/l Bedside Blood Urea Nitrogen 18 mg/dl Bedside Creatinine 0.7 mg/dl Bedside Glucose (other) 291 mg/dl Bedside Ionized Calcium ([place]) 1.24 mmol/l Influenza Type A (RT-PCR) Neg for Influ A Influenza Type B (RT-PCR) Neg for Influ B Urine Color YELLOW Urine Appearance CLEAR Urine pH 5.0 Urine Specific [place] 1.011 Urine Protein NEG Urine Glucose (UA) NEG Urine Ketones NEG Urine Occult Blood 1+ Urine Nitrite NEG Urine Bilirubin NEG Urine Urobilinogen NEG Urine Leukocyte Esterase MODERATE Urine WBC (Auto) 10-30 /hpf Urine RBC (Auto) 0-4 /hpf Urine Hyaline Casts (Auto) 1-5 /lpf Urine Epithelial Cells (Auto) 20-30 /lpf Urine Bacteria (Auto) NEG Test 03/29/16 04:43 03/29/16 09:58 Troponin I 0.068 ng/ml Assessment and Plan 86 y/o F with a host of medical issues including 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 Admitted on 03/28/2016 from [facility] with complaints of abdominal pain for 5 days, SOB and a cough which she states is chronic but may be worsening. SOB/COPD/PNM - Was on BiPAP upon admission, BIPAP which she uses QHS. Her abdominal pain is described as diffuse without nausea or vomiting. She has had some constipation. Denies diarrhea. A CT revealed what is likely a B/L PNM in addition to CHF. Continue duonebs/albuterol and have started her on Cef/Zithro - received a dose of Vanc in the ER presumably due to her healthcare setting and previous MRSA history CHF possible no exacerbation - received a dose of Bumex in ER - this may have helped her resp status. remain on her daily Bumex and B brad. Constipation with Abdominal pain - CT consistent with constipation/impaction - will provide a milk and molasses enema and keep on stool softeners/laxatives. Minimal elevated troponin with history of CAD, was no EKG changes possible from demanding ischemia Troponin trends down cont B brad, Statin and ASA - she is anticoagulated with Coumadin. AF - sinus on admission - cont B brad - she is therapeutic on Coumadin. Severe heart murmur- caution with over diuresis - would attempt to avoid hypotensive episodes. DM - Lantus + SS, check A1c I called to patient's son, whose name is HectorMARELY updated him patient's condition and care plan, answer all question, discussed about the CODE STATUS, want full code for now, like to be called if condition getting worse and he will decide. Hector do not want patient to be on a lot of of invasive procedure such as surgery or a lot lines Continued [facility] stay due to: multiple IV medications needed Discharge planning: [facility] facility
[2016-03-29] MEDS: WARFARIN SOD 3 MG TAB PO SCH (16:28)
[2016-03-29] MEDS: DIGOXIN 0.125 MG TAB PO SCH (16:29)
[2016-03-29] MEDS: INSULIN GLARGINE SOLOSTAR 100 UNITS/ML 3 ML PEN SC SCH (21:16)
[2016-03-29] MEDS: LATANOPROST 0.005% OP SOLN 2.5 ML BTL OPB SCH (21:40)
[2016-03-29] MEDS: CEFTRIAXONE SOD INJ 1 GM in DEXTROSE 5% ADD-VANTAGE 50ML 50 ML IV SCH (23:07)
[2016-03-30] VITALS (12 sets, daily range): BP systolic 102–144; BP diastolic 49–85; PULSE 57–106; TEMP 36.4–37; O2SAT 92–100
[2016-03-30] MEDS: AZITHROMYCIN IV 500 MG in DEXTROSE 5% 250ML 250 ML IV SCH (00:23)
[2016-03-30] MEDS: ALBUT/IPRATROP 3MG/0.5MG NEB 3 ML VIAL INH SCH ×4 (02:16→19:39)
[2016-03-30 06:17] LABS: BASO % 0.5 %; BASO ABS # 0.04 K/uL (0-0.2); COMPLETE YES; EOS % 4.5 %; HEMATOCRIT 33.4 % (37-47); IG% 0.1 %; LYMPH % 16.8 %; LYMPH ABS # 1.31 K/uL (1.2-3.4); MEAN CELL VOLUME 86.1 fL (80-100); MEAN CORPUSCULAR HEMOGLOBIN 27.6 pg (25-34); MEAN PLATELET VOLUME 10.8 fL (7.4-10.4); MONO % 9.5 %; NEUT % 68.6 %; PLATELET COUNT 190 K/uL (130-400); RED BLOOD COUNT 3.88 M/uL (4.2-5.4); WHITE BLOOD COUNT 7.81 K/uL (4.8-10.8)
[2016-03-30 06:21] LABS: INR 2.4 (0.9-1.1); PROTHROMBIN TIME (PATIENT) 26.4 SECONDS (9.0-12.0)
[2016-03-30 06:57] LABS: BUN/CREATININE RATIO 24.6 (10-20); CALCIUM 8.5 mg/dl (8.5-10.1); CREATININE 0.49 mg/dl (0.60-1.20); POTASSIUM 3.6 mmol/L (3.5-5.1)
[2016-03-30] MEDS: INSULIN ASPART 100 UNITS/ML 3 ML PEN SC SCH ×4 (07:00→20:38)
[2016-03-30] MEDS: SODIUM CHLORIDE 0.65% NA SOLN 45 ML (OCEAN) NAE SCH ×2 (07:56→19:25)
[2016-03-30] MEDS: BUDESONIDE/FORMOTEROL FUMARATE 160/4.5 60 PUFFS/INHALER INH SCH ×2 (07:56→19:25)
[2016-03-30] MEDS: BUMETANIDE 1 MG TAB PO SCH ×2 (07:57→16:53)
[2016-03-30] MEDS: POTASSIUM CHLORIDE 10 MEQ TABCR PO SCH (07:57)
[2016-03-30] MEDS: ATORVASTATIN 40 MG TAB PO SCH (07:58)
[2016-03-30] MEDS: MAGNESIUM OXIDE 400 MG TAB PO SCH ×2 (07:58→19:27)
[2016-03-30] MEDS: ESCITALOPRAM OXALATE 10 MG TAB PO SCH (07:58)
[2016-03-30] MEDS: METOPROLOL TARTRATE 25 MG TAB PO SCH ×2 (07:58→19:27)
[2016-03-30] MEDS: GABAPENTIN 300 MG CAP PO SCH ×3 (07:59→19:26)
[2016-03-30] MEDS: CLOPIDOGREL BISULFATE 75 MG TAB PO SCH (07:59)
[2016-03-30] MEDS: AMLODIPINE BESYLATE 5 MG TAB PO SCH (07:59)
[2016-03-30] MEDS: ROPINIROLE HCL 1 MG TAB PO SCH (08:00)
[2016-03-30] MEDS: SENNA 8.6 MG TAB PO SCH (08:00)
[2016-03-30] MEDS: CHOLECALCIFEROL 1000 INTER.UNIT TAB PO SCH (08:01)
--- NOTE | 2016-03-30 13:43 | Progress Note ---
Subjective Date of Service: Mar 30, 2016. Subjective Pt evaluation today including: conversation w/ patient, physical exam, chart review, lab review, review of studies, conversation w/ trial consultant, review of inpatient medication list Voiding: hamilton catheter in place Looks better, conversational, mild difficult breathing and cough, not productive Review of Systems Constitutional: + fatigue, + weakness, No chills, No fever, No problem reported , No sweats, No weight loss Eyes: No diplopia, No discharge, No eye pain, No redness, No worsening of vision ENT: No dental problems, No hearing loss, No nasal symptoms, No sore throat, No tinnitus, No trouble swallowing, No unusual epistaxis Respiratory: + cough, + shortness of breath, No dyspnea at rest, No dyspnea on exertion, No hemoptysis, No sputum, No wheezing Cardiac: No PND, No chest pain, No claudication, No edema, No orthopnea, No palpitations Abdomen: No constipation, No diarrhea, No nausea, No pain, No vomiting Musculoskeletal: No calf pain, No joint pain, No muscle pain, No swelling Female : No abnormal vaginal bleeding, No dysuria, No hematuria, No incontinence, No urinary frequency, No vaginal discharge Neurologic: No balance problems, No memory loss, No numbness/tingling, No paralysis, No vertigo, No weakness Psychiatric: No anhedonism, No anxiety, No depression symptoms, No insomnia, No substance abuse Heme: No abnormal bleeding/bruising, No clotting problems, No night sweats, No swollen lymph nodes Endo: No excessive thirst, No excessive urination, No fatigue Skin: No bleeding, No color change, No itch, No new/changing skin lesions, No rash Objective Vital Signs Date Time Temp Pulse Resp B/P Pulse Ox O2 Delivery O2 Flow Rate FiO2 03/30/16 12:08 36.7 63 15 140/49 95 Nasal Cannula 3.0 03/30/16 12:00 Nasal Cannula 3.0 03/30/16 08:11 36.9 67 20 119/51 96 Nasal Cannula 3.0 03/30/16 08:00 Nasal Cannula 3.0 03/30/16 07:43 68 16 93 Nasal Cannula 3.0 03/30/16 04:16 36.4 64 16 127/51 98 BiPAP 03/30/16 04:00 BiPAP 03/30/16 02:18 60 100 50 1/22/17 02:17 60 14 100 BiPAP/CPAP 50 03/30/16 00:39 36.8 57 22 144/51 98 BiPAP 03/30/16 00:00 BiPAP 03/29/16 22:31 59 93 50 03/29/16 20:19 36.4 73 17 155/53 98 Nasal Cannula 2.0 03/29/16 20:00 Nasal Cannula 4.0 03/29/16 19:07 70 20 100 Nasal Cannula 5.0 03/29/16 16:29 74 03/29/16 16:05 65 20 92 Nasal Cannula 5.0 03/29/16 16:00 Nasal Cannula 5.0 03/29/16 15:42 36.5 64 16 145/55 93 Nasal Cannula 5.0 Physical Exam General Appearance: WD/WN, no apparent distress Eyes: normal inspection, PERRL, EOMI, sclerae normal ENT: normal ENT inspection, hearing grossly normal, pharynx normal Neck: supple, no adenopathy, thyroid normal, no JVD, no carotid bruits, trachea midline Respiratory/Chest: chest non-tender, normal breath sounds, no respiratory distress, no accessory muscle use, + decreased breath sounds, + rales, + wheezing (mild) Cardiovascular: regular rate, rhythm, no edema, no gallop, no JVD, no murmur Abdomen: normal bowel sounds, non tender, soft, no organomegaly, no pulsatile mass Extremities: non-tender, normal inspection, no pedal edema, no calf tenderness , normal capillary refill, pelvis stable, + pertinent finding (right lower extremity AKA , left lower extremity no edema) Neurologic/Psychiatric: singer back tender II-XII nml as tested, no motor/sensory deficits, alert, normal mood/affect, oriented x 3 Skin: normal color, warm/dry, no rash Lymphatic: no adenopathy Laboratory Results Last 24 Hours Test 03/29/16 16:08 03/29/16 20:44 03/30/16 05:52 03/30/16 06:40 Bedside Glucose 239 mg/dl 239 mg/dl 125 mg/dl White Blood Count 7.81 K/uL Red Blood Count 3.88 M/uL Hemoglobin 10.7 g/dL Hematocrit 33.4 % Mean Corpuscular Volume 86.1 fL Mean Corpuscular Hemoglobin 27.6 pg Mean Corpuscular Hemoglobin Concent 32.0 g/dl Platelet Count 190 K/uL Mean Platelet Volume 10.8 fL Neutrophils (%) (Auto) 68.6 % Lymphocytes (%) (Auto) 16.8 % Monocytes (%) (Auto) 9.5 % Eosinophils (%) (Auto) 4.5 % Basophils (%) (Auto) 0.5 % Neutrophils # (Auto) 5.36 K/uL Lymphocytes # (Auto) 1.31 K/uL Monocytes # (Auto) 0.74 K/uL Eosinophils # (Auto) 0.35 K/uL Basophils # (Auto) 0.04 K/uL RDW Standard Deviation 56.5 fL RDW Coefficient of Variation 18.0 % Immature Granulocyte % (Auto) 0.1 % Immature Granulocyte # (Auto) 0.01 K/uL Prothrombin Time 26.4 SECONDS Prothromb Time International Ratio 2.4 Sodium Level 138 mmol/L Potassium Level 3.6 mmol/L Chloride Level 94 mmol/L Carbon Dioxide Level 40 mmol/L Anion Gap 4.0 mmol/L Blood Urea Nitrogen 12 mg/dl Creatinine 0.49 mg/dl Est Creatinine Clear Calc Drug Dose 90.5 ml/min Estimated GFR () 101.5 Estimated GFR (Non- 87.6 BUN/Creatinine Ratio 24.6 Random Glucose 129 mg/dl Calcium Level 8.5 mg/dl Magnesium Level 2.0 mg/dl Test 03/30/16 10:54 Bedside Glucose 195 mg/dl Assessment and Plan 86 y/o F with a host of medical issues including 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 Admitted on 03/28/2016 from [facility] with complaints of abdominal pain for 5 days, SOB and a cough which she states is chronic but may be worsening. Pneumonia with SOB/COPD exac Was on BiPAP upon admission, BIPAP which she uses QHS. Is getting better, now will continue NC O 2 at day time, BiPAP and nighttime Continue duonebs/albuterol and have started her on Cef/Zithro - received a dose of Vanc in the ER presumably due to her healthcare setting and previous MRSA history Abdominal pain upon admission, was totally resolved Her abdominal pain is described as diffuse without nausea or vomiting. She has had some constipation. Denies diarrhea. A CT revealed what is likely a B/L PNM in addition to CHF. CHF possible no exacerbation - received a dose of Bumex in ER - this may have helped her resp status. remain on her daily Bumex and B brad. Constipation with Abdominal pain - CT consistent with constipation/impaction Suppository was not successful, we will continue take care of the constipation Minimal elevated troponin with history of CAD, was no EKG changes possible from demanding ischemia Troponin trends down cont B brad, Statin and ASA - she is anticoagulated with Coumadin. AF - sinus on admission - cont B brad - she is therapeutic on Coumadin. Severe heart murmur- caution with over diuresis - would attempt to avoid hypotensive episodes. DM - Lantus + SS, check A1c on March 29 I called to patient's son, whose name is HectorMARELY updated him patient's condition and care plan, answer all question, discussed about the CODE STATUS, want full code for now, like to be called if condition getting worse and he will decide. Hector do not want patient to be on a lot of of invasive procedure such as surgery or a lot lines PT OT evaluation and treatment, she is from [facility], possible able to discharge in day 1 to 2 Continued [facility] stay due to: multiple IV medications needed Discharge planning: [facility] facility
[2016-03-30] MEDS ORDERED: MAGNESIUM HYDROXIDE SUSP 30 ML UDC PO ONE (13:45)
[2016-03-30] MEDS ORDERED: MAGNESIUM HYDROXIDE SUSP 30 ML UDC PO PRN (13:45)
[2016-03-30] MEDS ORDERED: WARFARIN SOD 4 MG TAB PO SCH (16:00)
[2016-03-30] MEDS: DIGOXIN 0.125 MG TAB PO SCH (16:52)
[2016-03-30] MEDS: LATANOPROST 0.005% OP SOLN 2.5 ML BTL OPB SCH (19:26)
[2016-03-30] MEDS: INSULIN GLARGINE SOLOSTAR 100 UNITS/ML 3 ML PEN SC SCH (20:38)
[2016-03-30] MEDS: CEFTRIAXONE SOD INJ 1 GM in DEXTROSE 5% ADD-VANTAGE 50ML 50 ML IV SCH (23:24)
[2016-03-31] VITALS (15 sets, daily range): BP systolic 110–147; BP diastolic 47–67; PULSE 65–88; TEMP 36.7–36.8; O2SAT 91–98
[2016-03-31] MEDS: AZITHROMYCIN IV 500 MG in DEXTROSE 5% 250ML 250 ML IV SCH (00:41)
[2016-03-31] MEDS: ALBUT/IPRATROP 3MG/0.5MG NEB 3 ML VIAL INH SCH ×4 (02:03→19:52)
[2016-03-31 06:26] LABS: INR 2.7 (0.9-1.1); PROTHROMBIN TIME (PATIENT) 30.1 SECONDS (9.0-12.0)
[2016-03-31 06:33] LABS: CALCIUM 8.9 mg/dl (8.5-10.1); CREATININE 0.49 mg/dl (0.60-1.20); MAGNESIUM 2.3 mg/dl (1.8-2.4); POTASSIUM 3.3 mmol/L (3.5-5.1)
[2016-03-31 06:53] LABS: ESTIMATED AVERAGE GLUCOSE 171 mg/dl; HA1C FLAG Normal (Normal)
[2016-03-31] MEDS: INSULIN ASPART 100 UNITS/ML 3 ML PEN SC SCH ×4 (07:00→21:10)
--- NOTE | 2016-03-31 08:48 | Clinical Documentation Query ---
REZA Max : CLINICAL DOCUMENTATION QUERY Patient is an 86 year old female admitted with COPD exacerbation in the setting of pneumonia. Documentation includes "O2 dependent COPD". Medication reconciliation notes continuous supplementation of 3L/min O2 via nasal cannula. Please clarify as clinically appropriate. Thank you. In your clinical opinion is this patient being managed for: (X) Chronic hypoxic respiratory failure ( ) Other explanation of clinical findings (Please Explain) ( ) Unable to determine (Please Define) ( ) Need to Discuss ( ) Not Agree The medical record reflects the following clinical findings, treatment, and risk factors. Clinical Indicators: As above Treatment: O2 supplementation Risk Factors: COPD, Advance age Please clarify and document your clinical opinion in the progress notes and discharge summary. Terms such as "probable", "suspected", "likely", "questionable", "possible", or "still to be ruled out" are acceptable. IF IN AGREEMENT, YOU MUST DOCUMENT ABOVE DIAGNOSTIC STATEMENT IN DAILY PROGRESS NOTES AND DISCHARGE SUMMARY. This document is not part of the patient's record. Thank You, Avi Hamilton, RN [phone]
[2016-03-31] MEDS: LEVOTHYROXINE 25 MCG TAB PO SCH (09:27)
[2016-03-31] MEDS: BUDESONIDE/FORMOTEROL FUMARATE 160/4.5 60 PUFFS/INHALER INH SCH ×2 (09:30→21:08)
[2016-03-31] MEDS: BUMETANIDE 1 MG TAB PO SCH ×2 (09:33→17:29)
[2016-03-31] MEDS: POTASSIUM CHLORIDE 10 MEQ TABCR PO SCH (09:34)
[2016-03-31] MEDS: ESCITALOPRAM OXALATE 10 MG TAB PO SCH (09:34)
[2016-03-31] MEDS: ATORVASTATIN 40 MG TAB PO SCH (09:35)
[2016-03-31] MEDS: SODIUM CHLORIDE 0.65% NA SOLN 45 ML (OCEAN) NAE SCH ×2 (09:35→21:08)
[2016-03-31] MEDS: MAGNESIUM OXIDE 400 MG TAB PO SCH ×2 (09:37→21:09)
[2016-03-31] MEDS: GABAPENTIN 300 MG CAP PO SCH ×3 (09:38→21:09)
[2016-03-31] MEDS: AMLODIPINE BESYLATE 5 MG TAB PO SCH (09:39)
[2016-03-31] MEDS: ROPINIROLE HCL 1 MG TAB PO SCH (09:39)
[2016-03-31] MEDS: CLOPIDOGREL BISULFATE 75 MG TAB PO SCH (09:39)
[2016-03-31] MEDS: SENNA 8.6 MG TAB PO SCH (09:40)
[2016-03-31] MEDS: CHOLECALCIFEROL 1000 INTER.UNIT TAB PO SCH (09:40)
[2016-03-31] MEDS: METOPROLOL TARTRATE 25 MG TAB PO SCH ×2 (11:00→21:08)
--- NOTE | 2016-03-31 13:08 | Progress Note ---
Subjective Date of Service: Mar 31, 2016. Subjective Pt evaluation today including: conversation w/ patient, physical exam, chart review, lab review, review of studies, review of inpatient medication list Pt resting in bed Still feels short of breath Productive cough still present No chest pain No other concerns addressed Review of Systems Constitutional: No chills, No fever Respiratory: + cough, + sputum, No dyspnea on exertion, No shortness of breath , No wheezing Cardiac: No chest pain, No orthopnea Abdomen: No diarrhea, No nausea, No pain, No vomiting Musculoskeletal: No joint pain, No muscle pain Female : No dysuria, No urinary frequency Objective Vital Signs Date Time Temp Pulse Resp B/P Pulse Ox O2 Delivery O2 Flow Rate FiO2 03/31/16 12:17 95 Nasal Cannula 2.0 03/31/16 11:56 36.7 78 18 132/67 95 03/31/16 09:56 88 03/31/16 08:24 36.8 87 18 147/53 98 03/31/16 08:00 Nasal Cannula 2.0 03/31/16 06:59 74 20 98 Nasal Cannula 3.0 03/31/16 04:00 BiPAP 03/31/16 03:32 36.8 73 18 115/50 95 BiPAP 03/31/16 02:06 65 97 50 03/31/16 02:03 65 20 97 BiPAP/CPAP 50 03/31/16 00:20 36.8 73 16 117/50 97 BiPAP 03/31/16 00:00 BiPAP 03/30/16 22:06 76 98 50 03/30/16 20:00 Nasal Cannula 3.0 03/30/16 19:38 79 18 93 Nasal Cannula 3.0 03/30/16 19:32 37.0 88 18 102/85 97 03/30/16 16:52 90 03/30/16 16:04 36.8 106 18 130/56 93 03/30/16 16:00 Nasal Cannula 3.0 03/30/16 14:12 72 16 92 Nasal Cannula 3.0 Physical Exam General Appearance: WD/WN, no apparent distress Neck: supple, no adenopathy Respiratory/Chest: chest non-tender, + decreased breath sounds Cardiovascular: no edema, no gallop, + systolic murmur Abdomen: non tender, soft Neurologic/Psychiatric: alert, normal mood/affect Laboratory Results Last 24 Hours Test 03/30/16 16:22 03/30/16 20:15 03/31/16 05:47 03/31/16 06:39 Bedside Glucose 161 mg/dl 268 mg/dl 54 mg/dl Prothrombin Time 30.1 SECONDS Prothromb Time International Ratio 2.7 Sodium Level 140 mmol/L Potassium Level 3.3 mmol/L Chloride Level 95 mmol/L Carbon Dioxide Level 39 mmol/L Anion Gap 6.0 mmol/L Blood Urea Nitrogen 10 mg/dl Creatinine 0.49 mg/dl Est Creatinine Clear Calc Drug Dose 90.9 ml/min Estimated GFR () 101.5 Estimated GFR (Non- 87.6 BUN/Creatinine Ratio 21.0 Random Glucose 50 mg/dl Calcium Level 8.9 mg/dl Magnesium Level 2.3 mg/dl Test 03/31/16 07:06 03/31/16 11:15 Bedside Glucose 93 mg/dl 204 mg/dl Assessment and Plan 86 y/o F with a host of medical issues including 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 Admitted on 03/28/2016 from [facility] with complaints of abdominal pain for 5 days, SOB and a cough which she states is chronic but may be worsening. Acute on chronic hypoxic respiratory failure with underlying pneumonia C resulting in COPD exacerbation Was on BiPAP upon admission, BIPAP which she uses QHS. Is getting better, now will continue NC O 2 at day time, BiPAP and nighttime Continue duonebs/albuterol and have started her on Cef/Zithro - received a dose of vanc in the ER presumably due to her healthcare setting and previous MRSA history Abdominal pain upon admission, was totally resolved Her abdominal pain is described as diffuse without nausea or vomiting. She has had some constipation. Denies diarrhea. A CT revealed what is likely a B/L PNM in addition to CHF. CHF possible no exacerbation - received a dose of Bumex in ER - this may have helped her resp status. remain on her daily Bumex and B brad. Constipation with Abdominal pain - CT consistent with constipation/impaction Suppository was not successful, we will continue take care of the constipation Minimal elevated troponin with history of CAD, was no EKG changes possible from demanding ischemia Troponin trends down cont B brad, Statin and ASA - she is anticoagulated with Coumadin. AF - sinus on admission - cont B brad - she is therapeutic on Coumadin. Severe heart murmur- caution with over diuresis - would attempt to avoid hypotensive episodes. DM - Lantus + SS, check A1c on March 29 I called to patient's son, whose name is HectorMARELY updated him patient's condition and care plan, answer all question, discussed about the CODE STATUS, want full code for now, like to be called if condition getting worse and he will decide. Hector do not want patient to be on a lot of of invasive procedure such as surgery or a lot lines Continued [facility] stay due to: multiple IV medications needed [facility]
[2016-03-31] MEDS: DIGOXIN 0.125 MG TAB PO SCH (16:03)
[2016-03-31] MEDS: WARFARIN SOD 3 MG TAB PO SCH (16:04)
[2016-03-31] MEDS: LATANOPROST 0.005% OP SOLN 2.5 ML BTL OPB SCH (21:08)
[2016-03-31] MEDS: INSULIN GLARGINE SOLOSTAR 100 UNITS/ML 3 ML PEN SC SCH (21:11)
[2016-03-31] MEDS: CEFTRIAXONE SOD INJ 1 GM in DEXTROSE 5% ADD-VANTAGE 50ML 50 ML IV SCH (21:11)
[2016-04-01] VITALS (7 sets, daily range): BP systolic 101–132; BP diastolic 48–68; PULSE 64–75; TEMP 36.4–36.9; O2SAT 94–97
[2016-04-01] MEDS: AZITHROMYCIN IV 500 MG in DEXTROSE 5% 250ML 250 ML IV SCH (00:12)
[2016-04-01] MEDS: ALBUT/IPRATROP 3MG/0.5MG NEB 3 ML VIAL INH SCH ×3 (01:46→14:10)
[2016-04-01 06:02] LABS: INR 2.6 (0.9-1.1); PROTHROMBIN TIME (PATIENT) 29.2 SECONDS (9.0-12.0)
[2016-04-01] MEDS: INSULIN ASPART 100 UNITS/ML 3 ML PEN SC SCH ×2 (07:00→11:00)
[2016-04-01] MEDS: GABAPENTIN 300 MG CAP PO SCH ×2 (08:54→14:00)
[2016-04-01] MEDS: AMLODIPINE BESYLATE 5 MG TAB PO SCH (08:54)
[2016-04-01] MEDS: SENNA 8.6 MG TAB PO SCH (08:54)
[2016-04-01] MEDS: ESCITALOPRAM OXALATE 10 MG TAB PO SCH (08:54)
[2016-04-01] MEDS: BUDESONIDE/FORMOTEROL FUMARATE 160/4.5 60 PUFFS/INHALER INH SCH (08:54)
[2016-04-01] MEDS: METOPROLOL TARTRATE 25 MG TAB PO SCH (08:54)
[2016-04-01] MEDS: SODIUM CHLORIDE 0.65% NA SOLN 45 ML (OCEAN) NAE SCH (08:54)
[2016-04-01] MEDS: ATORVASTATIN 40 MG TAB PO SCH (08:55)
[2016-04-01] MEDS: ROPINIROLE HCL 1 MG TAB PO SCH (08:55)
[2016-04-01] MEDS: CLOPIDOGREL BISULFATE 75 MG TAB PO SCH (08:55)
[2016-04-01] MEDS: MAGNESIUM OXIDE 400 MG TAB PO SCH (08:55)
[2016-04-01] MEDS: CHOLECALCIFEROL 1000 INTER.UNIT TAB PO SCH (08:55)
[2016-04-01] MEDS: POTASSIUM CHLORIDE 10 MEQ TABCR PO SCH (08:56)
[2016-04-01] MEDS: BUMETANIDE 1 MG TAB PO SCH (08:56)
[2016-04-01 10:07] LABS: BASO % 0.5 %; BASO ABS # 0.04 K/uL (0-0.2); COMPLETE YES; EOS % 4.3 %; HEMATOCRIT 34.9 % (37-47); IG% 0.4 %; LYMPH ABS # 1.81 K/uL (1.2-3.4); MEAN CORPUSCULAR HEMOGLOBIN 26.6 pg (25-34); MEAN CORPUSCULAR HGB CONC 30.9 g/dl (32-36); MEAN PLATELET VOLUME 10.6 fL (7.4-10.4); NEUT % 62.8 %; PLATELET COUNT 216 K/uL (130-400); RED BLOOD COUNT 4.06 M/uL (4.2-5.4); WHITE BLOOD COUNT 7.87 K/uL (4.8-10.8)
[2016-04-01] MEDS ORDERED: AZIT500T PO (10:49)
--- NOTE | 2016-04-01 10:51 | Discharge Instructions ---
Discharge Instructions Admission Reason for Admission: Abdominal Pain, Pneumonia Discharge Discharge Diagnosis / Problem: COPD exacerbation, HCAP Discharge Goals Goal(s): Decrease discomfort, Improve function, Increase independence, Improve disease control, Diagnostic testing, Therapeutic intervention Activity Recommendations Activity Limitations: resume your previous activity Exercise/Sports Limitations: none Shower/Bathe: no limitations . Instructions / Follow-Up Instructions / Follow-Up Patient to be discharged back to [facility] Please continue taking antibiotic azithromycin 500 mg once a day for 3 more days Continue O2 and BiPAP per protocol at [facility] Please follow up with primary care provider in 1-2 weeks Current Hospital Diet Patient's current hospital diet: AHA Diet (Heart Healthy), Diabetes Type 2 Diet Discharge Diet Recommended Diet: Diabetes Type 2 Diet Pending Studies Studies pending at discharge: no Laboratory Results Hemoglobin A1c Test 03/30/16 05:52 Range/Units Estimated Average Glucose 171 mg/dl Hemoglobin A1c 7.6 H 4.5-5.6 % Medical Emergencies . Who to Call and When: Medical Emergencies: If at any time you feel your situation is an emergency, please call 911 immediately. . Non-Emergent Contact Non-Emergency issues call your: Primary Care Provider Call Non-Emergent contact if: your pain is not controlled . . "Provider Documentation" section prepared by [employer]. VTE Core Measure Inpt VTE Proph given/why not?: Warfarin (Coumadin)
--- NOTE | 2016-04-01 15:52 | Discharge Summary ---
Discharge Summary Admission Date: Mar 29, 2016 at 05:29 Discharge Date: Apr 01, 2016 Discharge Disposition: nursing home facility Principal Diagnosis: Acute on chronic respiratory failure, HCAP Immunizations: Have You Had Influenza Vaccine: No Influenza Vaccine Date: Jun 01, 2011 History of Tetanus Vaccine?: utd History of Pneumococcal: Yes Pneumococcal Date: Sep 02, 2012 History of Hepatitis B Vaccine: No Medication Reconciliation New Medications: Azithromycin (Zithromax) 500 Mg Tab 500 MG PO DAILY for 3 Days, #3 TAB Continued Medications: Acetaminophen Tab (Tylenol) 325 Mg Tab 650 MG PO Q6 PRN for MILD PAIN, TAB ALSO PRN FOR TEMP >101F Albuterol Sulf (Ventolin) 2 Mg/5 Ml Syrp 1 DOSE INH Q4 PRN for Wheezing Alendronate Sodium (Binosto) 70 Mg Tab 70 MG PO MONDAYS Amlodipine (Norvasc) 5 Mg Tab 5 MG PO DAILY, TAB Atorvastatin (Lipitor) 40 Mg Tab 40 MG PO DAILY, TAB Bepotastine Besilate (Bepreve) 1.5 % Christiano 1 DROP OPB BID Budesonide/Formoterol Fumarate (Symbicort 160/4.5 Inhaler ) Aero 2 PUFFS INH BID, INHALER Bumetanide (Bumetanide) 0.5 Mg Tab 1.5 MG PO BID Calcium Carbonate-Vitamin D (Calcium + D) 1 Tab Tab 1 TAB PO BID Cholecalciferol (Vitamin D3) 2,000 Unit Tab 2000 UNITS PO DAILY for 90 Days, TAB 3 Refills Clopidogrel (Plavix) 75 Mg Tab 75 MG PO DAILY, TAB Digoxin (Digoxin) 0.125 Mg/2.5 Ml Elix 0.125 MG PO HS Escitalopram Oxalate (Lexapro) 10 Mg Tab 10 MG PO DAILY, TAB Gabapentin (Neurontin) 300 Mg Cap 900 MG PO TID, CAP Insulin Aspart (Novolog Penfill) 100 Unit/Ml Inj 4 SC DIRECTED take before meals Insulin Aspart (Novolog) 100 Units/Ml Inj 100 SC DIRECTED inject per sliding scale 0-150-gine 0 units, before meals and at hs. 151-200 give 6 units, [id number] 8 units, 251-300 give 10 units, 301-350 give 12 units, 351-400 give 14 units, 401-450 give 16 units greater than 451 call md Insulin Glargine (Lantus) 100 Unit/Ml Inj 24 SC QPM, VIAL Latanoprost (Xalatan 0.005% Oph Anna) 0.005 % Anna 1 DROPS OPB HS, #2.5 ML 3 Refills Levothyroxine Sodium (Levothyroxine Sodium) 25 Mcg Tab 25 MCG PO Q2D for 30 Days, TAB 5 Refills Magnesium Hydroxide (Milk Of Magnesia) 30 Ml Susp 30 ML PO DIRECTED PRN for Constipation, ML Magnesium Oxide (Mag-Ox) 400 Mg Tab 400 MG PO BID, TAB Metoprolol Tartrate (Lopressor) (Lopressor) 25 Mg Tab 25 MG PO BID, TAB Multivitamin (Multivitamin) Tab 1 TAB PO DAILY, TAB Oxygen (Oxygen) Gas 3 LITER NA CONTINOUS Potassium Chloride (Potassium Chloride Er) 10 Meq Tab 10 MEQ PO DAILY Ropinirole (Requip) 0.5 Mg Tab 0.5 MG PO DAILY, TAB Saline (Saline Nasal [place]) 0.65 % Spr 2 SPRAYS ADELA BID Sennosides (Senokot) 8.6 Mg Tab 8.6 MG PO DAILY, TAB Umeclidinium [place] (Incruse Ellipta) 62.5 Mcg/Inh Inh 1 PUFF INH DAILY Warfarin Sodium (Coumadin) 3 Mg Tab 3 MG PO Q2D, TAB ALTERNATE DAYS WITH 4MG Warfarin Sodium (Coumadin) 4 Mg Tab 4 MG PO Q2D, TAB ALTERNATE DAYS WITH 3 MG Discharge Exam Review of Systems: Constitutional: No chills, No fever Respiratory: + cough, No dyspnea on exertion, No shortness of breath, No sputum, No wheezing Cardiovascular: No chest pain, No orthopnea Abdomen: No diarrhea, No nausea, No pain, No vomiting Musculoskeletal: No joint pain, No muscle pain Genitourinary - Female: No dysuria, No urinary frequency, No urinary urgency Neurologic: No paralysis, No weakness Physical Exam: General Appearance: WD/WN, no apparent distress Neck: supple, no adenopathy Respiratory/Chest: chest non-tender, + decreased breath sounds Cardiovascular: no edema, no gallop Abdomen / GI: non tender, soft Neurologic/Psychiatric: alert, oriented x 3 Hospital Course 86 y/o F with a host of medical issues including 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 Admitted on 03/28/2016 from [facility] with complaints of abdominal pain for 5 days, SOB and a cough which she states is chronic but may be worsening. Acute on chronic hypoxic respiratory failure with underlying pneumonia resulting in COPD exacerbation Improved with rocephin/azithromycin and duonebs. Cont pts home O2 and BiPAP. Discharged on azithromycin for 3 days to finish a 7 day course. Abdominal pain upon admission is resolved. Her abdominal pain was described as diffuse without nausea or vomiting. She has had some constipation. Denies diarrhea. A CT revealed what is likely a B/L PNM in addition to CHF. CHF possible no exacerbation - received a dose of Bumex in ER - this may have helped her resp status. remain on her daily Bumex and B brad. Last ECHO in 2013, may need to repeat in future. Constipation with Abdominal pain - CT consistent with constipation/impaction. Suppositories PRN. Minimal elevated troponin with history of CAD, was no EKG changes possible from demanding ischemia Troponin trends down. Cont B brad, Statin and ASA - she is anticoagulated with Coumadin. AF - sinus on admission - cont Bblocker - she is therapeutic on Coumadin. Severe heart murmur- caution with over diuresis - would attempt to avoid hypotensive episodes. DM - Lantus + SSI, A1C 7.6 FULL CODE Total Time Spent: Greater than 30 minutes This includes examination of the patient, discharge planning, medication reconciliation, and communication with other providers. Discharge Instructions Please refer to the electronic Patient Visit Report (Discharge Instructions) for additional information.
[2016-06-07] MEDS ORDERED: SPRIN PO (10:17)
[2016-06-07] MEDS ORDERED: INSDGI SC ×2 (10:17→10:20)
[2016-06-07] MEDS ORDERED: ALBINS/ INH (10:17)
[2016-06-07] MEDS ORDERED: BENZ100C7 PO (10:17)
[2016-06-07] MEDS ORDERED: PRD10 PO (10:17)
[2016-06-07] MEDS ORDERED: IPRASOL4 INH (10:17)
[2016-06-07] MEDS ORDERED: GFNSR600 PO (10:17)
== END 2016-04-01 16:19 | DRG 193 ==
LOC: ENRESERVTM → ENRESERVDT → EDBD 23:04 → C.EDB 23:05 → C.2E 03-29 05:29 → EDBEDREQ 03-29 06:13 → CANBEDREQ 03-30 15:44
PROVIDERS: ADMIT Internal Medicine; ATTEND Hospitalist
DX: J18.9 Pneumonia, unspecified organism (principal); J96.01 Acute respiratory failure with hypoxia; J44.1 Chronic obstructive pulmonary disease with (acute) exacerbation; I13.0 Hypertensive heart and chronic kidney disease with heart failure and stage 1 through stage 4 chronic kidney disease, or unspecified chronic kidney disease; Y95 Nosocomial condition; I50.9 Heart failure, unspecified; I48.2 Chronic atrial fibrillation; I25.10 Atherosclerotic heart disease of native coronary artery without angina pectoris; K59.00 Constipation, unspecified; E66.01 Morbid (severe) obesity due to excess calories; E11.65 Type 2 diabetes mellitus with hyperglycemia; N18.2 Chronic kidney disease, stage 2 (mild); E78.5 Hyperlipidemia, unspecified; I73.9 Peripheral vascular disease, unspecified; I70.0 Atherosclerosis of aorta; R10.9 Unspecified abdominal pain; R79.89 Other specified abnormal findings of blood chemistry; R01.1 Cardiac murmur, unspecified; I27.2 Other secondary pulmonary hypertension; Z99.81 Dependence on supplemental oxygen; Z68.34 Body mass index [BMI] 34.0-34.9, adult; Z87.891 Personal history of nicotine dependence; Z79.01 Long term (current) use of anticoagulants; Z79.4 Long term (current) use of insulin; Z99.89 Dependence on other enabling machines and devices; Z79.51 Long term (current) use of inhaled steroids; Z79.02 Long term (current) use of antithrombotics/antiplatelets; Z79.83 Long term (current) use of bisphosphonates; Z79.899 Other long term (current) drug therapy

== ENCOUNTER 2016-05-04 00:56 | Inpatient (IN) | payer OTHER ==
[~2016-05-04] VITALS: Ht 167.6 cm; Wt 91.5 kg
[2016-05-04] VITALS (9 sets, daily range): BP systolic 107–129; BP diastolic 47–73; PULSE 59–80; TEMP 36.4–37.6; O2SAT 90–98; Ht 167.6 cm; Wt 91.5 kg
[~2016-05-04 00:56] MED LIST changes: +ALBU2SYP9 INH; +ATOR-24 PO; +AZIT500T PO; -CHOL100010 PO; +CHOL20007 PO; +CLOP1TAB15 PO; -DIGO0.1219 PO; +INSU1INJ2 SC; -LATA0.009 OPB; +LATA0.5S OPB; -LEVO50TA6 PO; +MOML PO; +NVLG SC; -NVLGI SC; -PRLSR20 PO; +ROPI0.5T15 PO; -RQP25 PO; -SKIN PREP TOP; -TIOTCAP INH; -TRAM-10 PO; +[UNRECOGNIZED DRUG - CODE] PO
[2016-05-04] MEDS ORDERED: SODIUM CHLORIDE 0.9% 1000ML 1,000 ML IV ONE (01:01)
[2016-05-04] MEDS ORDERED: ACETAMINOPHEN 325 MG SUPP PR STA (01:27)
[2016-05-04 01:39] LABS: BASO % 0.2 %; BASO ABS # 0.03 K/uL (0-0.2); COMPLETE YES; EOS % 0.4 %; HEMATOCRIT 40.8 % (37-47); IG% 0.2 %; LYMPH % 5.4 %; LYMPH ABS # 0.89 K/uL (1.2-3.4); MEAN CELL VOLUME 83.8 fL (80-100); MEAN CORPUSCULAR HEMOGLOBIN 26.9 pg (25-34); MEAN CORPUSCULAR HGB CONC 32.1 g/dl (32-36); MEAN PLATELET VOLUME 9.9 fL (7.4-10.4); MONO % 7.6 %; NEUT % 86.2 %; PLATELET COUNT 234 K/uL (130-400); RED BLOOD COUNT 4.87 M/uL (4.2-5.4); WHITE BLOOD COUNT 16.37 K/uL (4.8-10.8)
[2016-05-04] MEDS ORDERED: CEFTRIAXONE SOD INJ 1 GM ADDVIAL IV STA (01:43)
--- NOTE | 2016-05-04 01:45 | EMERGENCY ROOM VISIT NOTE ---
History Report prepared by Caitlinibkleber: Ainsley Sims Under the Supervision of: Dr. Justo Danielle D.O. First contact with patient: 00:58 Chief Complaint: FEVER Stated Complaint: FEVER, PNEUMONIA History of Present Illness The patient is an 86 year old female who presents to the Emergency Room via EMS to be evaluated for a worsening fever and pneumonia with onset 3-6 hours ago. The patient is a resident at [facility]. Per EMS, the patient started to feel ill several days ago. She started to become more ill today. Per EMS, the patient had a fever of 100.4 axillary and an oxygen saturation in the 70s at [facility]. Additionally, the patient is a full-code. Source of History: EMS Onset: 6 hours ago Position: other (global ) Quality: other (fever) Timing: worsening Note: The patient had an oxygen saturation in the 70s at [facility] Review of Systems See HPI for pertinent positives & negatives. A total of 10 systems reviewed and were otherwise negative. 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 (16) PERIPH VASCULAR DIS NOS (17) SEPSIS Family History Unobtainable due to patient's condition Social History Smoking Status: Former Smoker Alcohol Use: none Drug Use: none Marital Status: Housing Status: [facility] Occupation Status: retired Current/Historical Medications Scheduled Alendronate Sodium (Binosto), 70 MG PO MONDAYS Amlodipine (Norvasc), 5 MG PO DAILY Atorvastatin (Lipitor), 40 MG PO DAILY Bepotastine Besilate (Bepreve), 1 DROP OPB BID Budesonide/Formoterol Fumarate (Symbicort 160/4.5 Inhaler ), 2 PUFFS INH BID Bumetanide (Bumetanide), 1.5 MG PO BID Calcium Carbonate-Vitamin D (Calcium + D), 1 TAB PO BID Cholecalciferol (Vitamin D3), 2,000 UNITS PO DAILY Clopidogrel (Plavix), 75 MG PO DAILY Digoxin (Digoxin), 0.125 MG PO HS Escitalopram Oxalate (Lexapro), 10 MG PO DAILY Gabapentin (Neurontin), 900 MG PO TID Insulin Aspart (Novolog Penfill), 4 SC DIRECTED Insulin Aspart (Novolog), 100 SC DIRECTED Insulin Glargine (Lantus), 24 SC QPM Latanoprost (Xalatan 0.005% Oph Anna), 1 DROPS OPB HS Levothyroxine Sodium (Levothyroxine Sodium), 25 MCG PO Q2D Magnesium Oxide (Mag-Ox), 400 MG PO BID Metoprolol Tartrate (Lopressor) (Lopressor), 25 MG PO BID Multivitamin (Multivitamin), 1 TAB PO DAILY Oxygen (Oxygen), 3 LITER NA CONTINOUS Potassium Chloride (Potassium Chloride Er), 10 MEQ PO DAILY Ropinirole (Requip), 0.5 MG PO DAILY Saline (Saline Nasal [place]), 2 SPRAYS [place]LA BID Sennosides (Senokot), 8.6 MG PO DAILY Umeclidinium [place] (Incruse Ellipta), 1 PUFF INH DAILY Warfarin Sodium (Coumadin), 3 MG PO 4XWK Warfarin Sodium (Coumadin), 4 MG PO 3XWK Scheduled PRN Acetaminophen Tab (Tylenol), 650 MG PO Q6 PRN for MILD PAIN Albuterol Sulf (Ventolin), 1 DOSE INH Q4 PRN for Wheezing Allergies Coded Allergies: RICHARD Inhibitors (Verified Allergy, Unknown, unknown, 05/04/16) Aspirin (Verified Allergy, Unknown, unknown, 05/04/16) [place] Atenolol (Verified Allergy, Unknown, unknown; TAKES TOPROL XL W/O PROBLEM , 05/04/16) Cefprozil (Verified Allergy, Unknown, unknown, 05/04/16) TOLERATED ROCEPHIN 02/2014 FOR MULTIPLE DOSES Ciprofloxacin (Verified Allergy, Unknown, unknown, 05/04/16) Codeine (Verified Allergy, Unknown, unknown, 05/04/16) Fluticasone (Verified Allergy, Unknown, Unknown, 05/04/16) Furosemide (Verified Allergy, Unknown, ., 05/04/16) Hydrochlorothiazide (Verified Allergy, Unknown, unknown, 05/04/16) Hydrochlorothiazide w/Triamterene (Verified Allergy, Unknown, unknown, ) Ibuprofen (Verified Allergy, Unknown, unknown; HAS TAKEN ASA W/O PROBLEM, 05/04/16) Lisinopril (Verified Allergy, Unknown, unknown, 05/04/16) Meperidine (Verified Allergy, Unknown, unknown, 05/04/16) Niacinamide (Verified Allergy, Unknown, NICOTINAMIDE, 05/04/16) Penicillins (Verified Allergy, Unknown, UNKNOWN, 05/04/16) TOLERATED ROCEPHIN 02/2014 FOR MULTIPLE DOSES Quinolones (Verified Allergy, Unknown, 05/04/16) Rofecoxib (Verified Allergy, Unknown, unknown, 05/04/16) Salmeterol (Verified Allergy, Unknown, Unknown, 05/04/16) Spironolactone (Verified Allergy, Unknown, unknown, 05/04/16) Statins (Verified Allergy, Unknown, unknown, 05/04/16) Sulfa Antibiotics (Verified Allergy, Unknown, ., 05/04/16) Caffeine (Verified Adverse Reaction, Unknown, unknown, 05/04/16) Physical Exam Vital Signs Date Time Temp Pulse Resp B/P Pulse Ox O2 Delivery O2 Flow Rate FiO2 05/04/16 01:24 73 05/04/16 01:15 95 Nasal Cannula 6.0 05/04/16 01:15 39.2 73 26 157/64 94 Nasal Cannula 6.0 Physical Exam GENERAL: Patient is listless and slow to respond to questioning. She does follow commands but slowly and intermittently. EYES: The conjunctivae are clear. The pupils are round and reactive. EARS, NOSE, MOUTH AND THROAT: The nose is without any evidence of any deformity. Mucous membranes are dry. NECK: The neck is nontender and supple. RESPIRATORY: Shallow respirations are noted. There is poor air movement. There are rales noted in the left lung field. CARDIOVASCULAR: Irregular rhythm was noted auscultation. There is a loud systolic murmur noted auscultation. GASTROINTESTINAL: The abdomen is soft. Bowel sounds are present in all quadrants. Abdomen is nontender MUSCULOSKELETAL/EXTREMITIES: There is no evidence of gross deformity full range of motion is noted in the hips and shoulders. SKIN: Right lower extremity amputation is noted. There is pedal edema noted in the left leg. NEUROLOGIC: Patient is oriented to person place but not time or situation. Medical Decision & Procedures ER Provider Diagnostic Interpretation: X-ray results as stated below per interpretation by me: Chest x-ray: Cardiomegaly, bilaterally air space opacification noted, no free air, right lower lobe infiltrate specifically compared to 03/28/2016 appears worse, Laboratory Results Test 05/04/16 01:23 05/04/16 01:25 05/04/16 01:32 05/04/16 02:00 Erythrocyte Sedimentation Rate 90 mm/hr (0-21) Venous Blood pH 7.38 (7.36-7.41) Venous Blood Partial Pressure CO2 67 mmHg (38.0-50.0) Venous Blood Partial Pressure O2 21 mmHg Venous Blood HCO3 39 mmol/L Venous Blood Oxygen Saturation < 60.0 % Venous Blood Base Excess 10.6 mmol/L Phosphorus Level 2.7 mg/dl (2.5-4.9) Magnesium Level 2.0 mg/dl (1.8-2.4) Total Creatine Kinase 72 U/L (26-192) Creatine Kinase MB 1.2 ng/ml (0.5-3.6) Creatine Kinase MB Ratio 1.7 (0-3.0) Troponin I 0.025 ng/ml (0-0.045) C-Reactive Protein 1.72 mg/dl (0-0.29) Pro-B-Type Natriuretic Peptide 1486 pg/ml (0-1800) Lipase 109 U/L (73-393) Digoxin Level 0.6 ng/ml (0.8-2.0) Prothrombin Time 26.2 SECONDS (9.0-12.0) Prothromb Time International Ratio 2.4 (0.9-1.1) Activated Partial Thromboplast Time 38.8 SECONDS (21.0-31.0) Partial Thromboplastin Ratio 1.5 Bedside Lactic Acid Venous 2.89 mmol/L (0.90-1.70) Urine Color YELLOW Urine Appearance CLEAR (CLEAR) Urine pH 7.5 (4.5-7.5) Urine Specific [place] 1.008 (1.000-1.030) Urine Protein NEG (NEG) Urine Glucose (UA) NEG (NEG) Urine Ketones NEG (NEG) Urine Occult Blood 1+ (NEG) Urine Nitrite NEG (NEG) Urine Bilirubin NEG (NEG) Urine Urobilinogen NEG (NEG) Urine Leukocyte Esterase NEG (NEG) Urine WBC (Auto) 0 /hpf (0-5) Urine RBC (Auto) 10-30 /hpf (0-4) Urine Hyaline Casts (Auto) 1-5 /lpf (0-5) Urine Epithelial Cells (Auto) 0-5 /lpf (0-5) Urine Bacteria (Auto) NEG (NEG) Influenza Type A (RT-PCR) Neg for Influ A (NEG) Influenza Type A Antigen Neg for Influ A (NEG) Influenza Type B Antigen Neg for Influ B (NEG) Influenza Type B (RT-PCR) Neg for Influ B (NEG) Laboratory results per my review. Medications Administered Medications (Trade) Dose Ordered Sig/Tariq Route Start Time Stop Time Status Last Admin Dose Admin Sodium Chloride (Nss 1000ml) 1,000 ml @ 999 mls/hr Q1H1M ONCE IV 05/04/16 01:01 05/04/16 02:01 DC 05/04/16 01:48 999 MLS/HR Acetaminophen (Tylenol Supp) 975 mg NOW STAT IA 05/04/16 01:27 05/04/16 01:29 DC 05/04/16 01:49 975 MG Ceftriaxone Sodium 1 gm 1 gm NOW STAT IV 05/04/16 01:43 05/04/16 01:44 DC 05/04/16 01:43 1 GM Vancomycin HCl/ Sodium Chloride (Vancomycin Inj/ Nss 250ml) 270 ml @ 125 mls/hr NOW STAT IV 05/04/16 02:29 05/04/16 04:38 DC 05/04/16 02:34 125 MLS/HR ECG Indication: SOB/dyspnea Rate (beats per minute): 73 Rhythm: normal sinus Findings: ST depression (diffuse) Comparison ECG Date: 03/30/2016 Change: Changes are similar to the EKG from March 30, 2016. ED Course 0100: The patient was evaluated in room B8. A complete history and physical examination were performed. 0101: NSS 1,000 ml @ 999 mls/hr IV 0127: Tylenol Supp 975 mg IA 0143: Rocephin 1 gm IV 0201: I discussed the case with Dr. Daniel ([facility]) ; he will further evaluate the patient. 0202: Vancomycin HCl 1000 mg / Sodium Chloride 520 ml @ 200 mls/hr Medical Decision Differential diagnosis: Etiologies such as sepsis, UTI, pneumonia, metabolic, electrolyte abnormalities , cardiac sources, intracerebral event, toxicologic, neurologic, as well as others were entertained. Nursing notes reviewed. Additional history is obtained from the prehospital personnel. Additional history was obtained from the patient's [facility] documentation. The patient is an 86-year-old female who presented to the emergency department with altered mental status cough and fever. The patient was reportedly hypoxic at the [facility]. The patient was treated with submental oxygen IV fluids and IV antibiotics. She was reevaluated multiple times. I discussed the patient' s case with the on-call [facility] hospitalist group. They have agreed to evaluate the patient in the emergency apartment for further management and disposition. The patient's condition slowly improved. She is still guarded and very critical at this time. Consults Time Called: [phone] Consulting Physician: Dr. Daniel ([facility]) Returned Call: 020 I discussed the case with Dr. Daniel ([facility]); he will further evaluate the patient. Impression Primary Impression: Pneumonia Additional Impressions: Fever Hypoxia Scribe Attestation The scribe's documentation has been prepared under my direction and personally reviewed by me in its entirety. I confirm that the note above accurately reflects all work, treatment, procedures, and medical decision making performed by me. Departure Information Dispostion Being Evaluated By Hospitalist Referrals Jane Victoria (PCP) Patient Instructions My [facility] Problem Qualifiers Primary Impression: Pneumonia Pneumonia type: due to unspecified organism Laterality: right Lung location : lower lobe of lung Qualified Codes: J18.1 - Lobar pneumonia, unspecified organism Additional Impressions: Fever Fever type: unspecified Qualified Codes: R50.9 - Fever, unspecified
[2016-05-04 01:59] LABS: VEN BLD GAS O2 SATURATION < 60.0 %; VEN BLOOD GAS BASE EXCESS 10.6 mmol/L; VENOUS BLOOD GAS PCO2 67 mmHg (38.0-50.0); VENOUS BLOOD GAS PO2 21 mmHg
[2016-05-04 02:00] LABS: ALT/SGPT 44 U/L (12-78); AST/SGOT 38 U/L (15-37); BLOOD UREA NITROGEN 23 mg/dl (7-18); CALCIUM 9.4 mg/dl (8.5-10.1); CARBON DIOXIDE 35 mmol/L (21-32); CHLORIDE 99 mmol/L (98-107); CREATININE 0.81 mg/dl (0.60-1.20); GLUCOSE 211 mg/dl (70-99); POTASSIUM 4.6 mmol/L (3.5-5.1); SODIUM 141 mmol/L (136-145)
[2016-05-04 02:01] LABS: INR 2.4 (0.9-1.1); PARTIAL THROMBOPLASTIN RATIO 1.5; PROTHROMBIN TIME (PATIENT) 26.2 SECONDS (9.0-12.0)
[2016-05-04] MEDS ORDERED: VANCOMYCIN IV STA (02:02)
[2016-05-04] MEDS ORDERED: SODIUM CHLORIDE 0.9% IV STA (02:02)
[2016-05-04 02:04] LABS: ALB/GLOB RATIO 0.6 (0.9-2); ALKALINE PHOSPHATASE 335 U/L (45-117); C-REACTIVE PROTEIN 1.72 mg/dl (0-0.29); CKMB/CK RATIO 1.7 (0-3.0); PHOSPHORUS 2.7 mg/dl (2.5-4.9)
[2016-05-04 02:27] LABS: URINE APPEARANCE CLEAR (CLEAR); URINE BILIRUBIN NEG (NEG); URINE COLOR YELLOW; URINE EPITHELIAL CELL AUTO 0-5 /lpf (0-5); URINE NITRITE NEG (NEG); URINE PH 7.5 (4.5-7.5); URINE SPECIFIC GRAVITY 1.008 (1.000-1.030); UROBILINOGEN NEG (NEG); ZZURINE CULT IF INDIC CATH NO
[2016-05-04] MEDS ORDERED: VANCOMYCIN INJ 1,000 MG in SODIUM CHLORIDE 0.9% 250ML 250 ML IV STA (02:29)
[2016-05-04 02:34] LABS: MANUAL MICROSCOPIC REQUIRED? NO; REVIEW REQ? NO
[2016-05-04] MEDS ORDERED: FSMD/70 PO (02:58)
[2016-05-04] MEDS ORDERED: DEXTROSE 50% 50 ML SYR IV PRN (03:00)
[2016-05-04] MEDS ORDERED: GLUCAGON FOR INJ 1 MG VIAL SQ PRN (03:00)
[2016-05-04] MEDS ORDERED: ACETAMINOPHEN IV 100 ML IV PRN (03:00)
[2016-05-04] MEDS ORDERED: GLUCOSE 40% GEL 15 GM TUBE PO PRN (03:00)
[2016-05-04] MEDS ORDERED: GLUCOSE 10 TABS/TUBE PO PRN (03:00)
[2016-05-04] MEDS ORDERED: ONDANSETRON INJ 2 MG/ML 2 ML VIAL IV PRN (03:00)
[2016-05-04] MEDS ORDERED: VANCOMYCIN CONSULT ACTIVE PRN (03:11)
--- NOTE | 2016-05-04 03:50 | History and Physical ---
History & Physical Date & Time of Service: May 04, 2016 at 03:38 Chief Complaint: Fever, Pneumonia Primary Care Physician: Jane Victoria History of Present Illness Source: clinic records, hospital records The patient is obtunded, and unable to contribute to history of present illness , and information has been gathered from records from [facility] where she lives, and from the emergency department at [facility]. 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 (15) PERIPH VASCULAR DIS NOS Status: Chronic (16) SEPSIS Status: Resolved Family History Unobtainable due to patient's condition Social History Smoking Status: Former Smoker Drug Use: none Marital Status: Housing status: assisted living Occupational Status: retired Immunizations History of Influenza Vaccine: No Influenza Vaccine Date: Jun 01, 2011 History of Tetanus Vaccine?: utd History of Pneumococcal: Yes Pneumococcal Date: Sep 02, 2012 History of Hepatitis B Vaccine: No Multi-Drug Resistant Organisms History of MDRO: No Allergies Coded Allergies: RICHARD Inhibitors (Verified Allergy, Unknown, unknown, 05/04/16) Aspirin (Verified Allergy, Unknown, unknown, 05/04/16) [place] Atenolol (Verified Allergy, Unknown, unknown; TAKES TOPROL XL W/O PROBLEM , 05/04/16) Cefprozil (Verified Allergy, Unknown, unknown, 05/04/16) TOLERATED ROCEPHIN 02/2014 FOR MULTIPLE DOSES Ciprofloxacin (Verified Allergy, Unknown, unknown, 05/04/16) Codeine (Verified Allergy, Unknown, unknown, 05/04/16) Fluticasone (Verified Allergy, Unknown, Unknown, 05/04/16) Furosemide (Verified Allergy, Unknown, ., 05/04/16) Hydrochlorothiazide (Verified Allergy, Unknown, unknown, 05/04/16) Hydrochlorothiazide w/Triamterene (Verified Allergy, Unknown, unknown, ) Ibuprofen (Verified Allergy, Unknown, unknown; HAS TAKEN ASA W/O PROBLEM, 05/04/16) Lisinopril (Verified Allergy, Unknown, unknown, 05/04/16) Meperidine (Verified Allergy, Unknown, unknown, 05/04/16) Niacinamide (Verified Allergy, Unknown, NICOTINAMIDE, 05/04/16) Penicillins (Verified Allergy, Unknown, UNKNOWN, 05/04/16) TOLERATED ROCEPHIN 02/2014 FOR MULTIPLE DOSES Quinolones (Verified Allergy, Unknown, 05/04/16) Rofecoxib (Verified Allergy, Unknown, unknown, 05/04/16) Salmeterol (Verified Allergy, Unknown, Unknown, 05/04/16) Spironolactone (Verified Allergy, Unknown, unknown, 05/04/16) Statins (Verified Allergy, Unknown, unknown, 05/04/16) Sulfa Antibiotics (Verified Allergy, Unknown, ., 05/04/16) Caffeine (Verified Adverse Reaction, Unknown, unknown, 05/04/16) Home Medications Scheduled Alendronate Sodium (Binosto), 70 MG PO MONDAYS Amlodipine (Norvasc), 5 MG PO DAILY Atorvastatin (Lipitor), 40 MG PO DAILY Bepotastine Besilate (Bepreve), 1 DROP OPB BID Budesonide/Formoterol Fumarate (Symbicort 160/4.5 Inhaler ), 2 PUFFS INH BID Bumetanide (Bumetanide), 1.5 MG PO BID Calcium Carbonate-Vitamin D (Calcium + D), 1 TAB PO BID Cholecalciferol (Vitamin D3), 2,000 UNITS PO DAILY Clopidogrel (Plavix), 75 MG PO DAILY Digoxin (Digoxin), 0.125 MG PO HS Escitalopram Oxalate (Lexapro), 10 MG PO DAILY Gabapentin (Neurontin), 900 MG PO TID Insulin Aspart (Novolog Penfill), 4 SC DIRECTED Insulin Aspart (Novolog), 100 SC DIRECTED Insulin Glargine (Lantus), 24 SC QPM Latanoprost (Xalatan 0.005% Oph Anna), 1 DROPS OPB HS Levothyroxine Sodium (Levothyroxine Sodium), 25 MCG PO Q2D Magnesium Oxide (Mag-Ox), 400 MG PO BID Metoprolol Tartrate (Lopressor) (Lopressor), 25 MG PO BID Multivitamin (Multivitamin), 1 TAB PO DAILY Oxygen (Oxygen), 3 LITER NA CONTINOUS Potassium Chloride (Potassium Chloride Er), 10 MEQ PO DAILY Ropinirole (Requip), 0.5 MG PO DAILY Saline (Saline Nasal [place]), 2 SPRAYS [place]LA BID Sennosides (Senokot), 8.6 MG PO DAILY Umeclidinium [place] (Incruse Ellipta), 1 PUFF INH DAILY Warfarin Sodium (Coumadin), 3 MG PO 4XWK Warfarin Sodium (Coumadin), 4 MG PO 3XWK Scheduled PRN Acetaminophen Tab (Tylenol), 650 MG PO Q6 PRN for MILD PAIN Albuterol Sulf (Ventolin), 1 DOSE INH Q4 PRN for Wheezing Review of Systems Her review of systems is limited due to her obtunded state. Physical Exam Vital Signs Date Time Temp Pulse Resp B/P Pulse Ox O2 Delivery O2 Flow Rate FiO2 05/04/16 03:00 78 16 127/69 97 Nasal Cannula 6.0 05/04/16 01:24 73 05/04/16 01:15 95 Nasal Cannula 6.0 05/04/16 01:15 39.2 73 26 157/64 94 Nasal Cannula 6.0 The patient is obtunded, nonresponsive, but in no acute distress. HEENT--PERRL, EOMI, mucous membranes and oropharynx dry. Neck--supple, no JVD or bruits, thyroid normal, trachea midline, no adenopathy. Heart--normal S1 and S2, no extra beats, no murmurs, rubs or gallops. Lungs--decreased breath sounds throughout, no respiratory distress, no accessory muscle use. Abdomen--normal bowel sounds and soft, nontender and nondistended, no hernias or masses, no organomegaly. Extremities--no cyanosis, clubbing or edema. There are good distal pulses b/l. Dermatologic--normal skin turgor, normal color, warm and dry, no abnormal lymph nodes, no rash. Neurologic--cranial nerves II through XII grossly intact, exam limited. Psychiatric--obtunded. Diagnostics Laboratory Results Results Past 24 Hours Test 05/04/16 01:23 05/04/16 01:25 05/04/16 01:32 05/04/16 02:00 Range/Units White Blood Count 16.37 4.8-10.8 K/uL Red Blood Count 4.87 4.2-5.4 M/uL Hemoglobin 13.1 12.0-16.0 g/dL Hematocrit 40.8 37-47 % Mean Corpuscular Volume 83.8 80-100 fL Mean Corpuscular Hemoglobin 26.9 25-34 pg Mean Corpuscular Hemoglobin Concent 32.1 32-36 g/dl Platelet Count 234 130-400 K/uL Mean Platelet Volume 9.9 7.4-10.4 fL Neutrophils (%) (Auto) 86.2 % Lymphocytes (%) (Auto) 5.4 % Monocytes (%) (Auto) 7.6 % Eosinophils (%) (Auto) 0.4 % Basophils (%) (Auto) 0.2 % Neutrophils # (Auto) 14.10 1.4-6.5 K/uL Lymphocytes # (Auto) 0.89 1.2-3.4 K/uL Monocytes # (Auto) 1.25 0.11-0.59 K/uL Eosinophils # (Auto) 0.06 0-0.5 K/uL Basophils # (Auto) 0.03 0-0.2 K/uL RDW Standard Deviation 49.3 36.4-46.3 fL RDW Coefficient of Variation 16.1 11.5-14.5 % Immature Granulocyte % (Auto) 0.2 % Immature Granulocyte # (Auto) 0.04 0.00-0.02 K/uL Erythrocyte Sedimentation Rate 90 0-21 mm/hr Venous Blood pH 7.38 7.36-7.41 Venous Blood Partial Pressure CO2 67 38.0-50.0 mmHg Venous Blood Partial Pressure O2 21 mmHg Venous Blood HCO3 39 mmol/L Venous Blood Oxygen Saturation < 60.0 % Venous Blood Base Excess 10.6 mmol/L Sodium Level 141 136-145 mmol/L Potassium Level 4.6 3.5-5.1 mmol/L Chloride Level 99 98-107 mmol/L Carbon Dioxide Level 35 21-32 mmol/L Anion Gap 7.0 3-11 mmol/L Blood Urea Nitrogen 23 7-18 mg/dl Creatinine 0.81 0.60-1.20 mg/dl Estimated GFR () 75.7 Estimated GFR (Non- 65.3 BUN/Creatinine Ratio 28.0 10-20 Random Glucose 211 70-99 mg/dl Calcium Level 9.4 8.5-10.1 mg/dl Phosphorus Level 2.7 2.5-4.9 mg/dl Magnesium Level 2.0 1.8-2.4 mg/dl Total Bilirubin 0.5 0.2-1 mg/dl Aspartate Amino Transf (AST/SGOT) 38 15-37 U/L Alanine Aminotransferase (ALT/SGPT) 44 12-78 U/L Alkaline Phosphatase 335 45-117 U/L Total Creatine Kinase 72 26-192 U/L Creatine Kinase MB 1.2 0.5-3.6 ng/ml Creatine Kinase MB Ratio 1.7 0-3.0 Troponin I 0.025 0-0.045 ng/ml C-Reactive Protein 1.72 0-0.29 mg/dl Pro-B-Type Natriuretic Peptide 1486 0-1800 pg/ml Total Protein 7.6 6.4-8.2 gm/dl Albumin 2.9 3.4-5.0 gm/dl Globulin 4.7 2.5-4.0 gm/dl Albumin/Globulin Ratio 0.6 0.9-2 Lipase 109 73-393 U/L Digoxin Level 0.6 0.8-2.0 ng/ml Prothrombin Time 26.2 9.0-12.0 SECONDS Prothromb Time International Ratio 2.4 0.9-1.1 Activated Partial Thromboplast Time 38.8 21.0-31.0 SECONDS Partial Thromboplastin Ratio 1.5 Bedside Lactic Acid Venous 2.89 0.90-1.70 mmol/L Urine Color YELLOW Urine Appearance CLEAR CLEAR Urine pH 7.5 4.5-7.5 Urine Specific [place] 1.008 1.000-1.030 Urine Protein NEG NEG Urine Glucose (UA) NEG NEG Urine Ketones NEG NEG Urine Occult Blood 1+ NEG Urine Nitrite NEG NEG Urine Bilirubin NEG NEG Urine Urobilinogen NEG NEG Urine Leukocyte Esterase NEG NEG Urine WBC (Auto) 0 0-5 /hpf Urine RBC (Auto) 10-30 0-4 /hpf Urine Hyaline Casts (Auto) 1-5 0-5 /lpf Urine Epithelial Cells (Auto) 0-5 0-5 /lpf Urine Bacteria (Auto) NEG NEG Influenza Type A Antigen Neg for Influ A NEG Influenza Type B Antigen Neg for Influ B NEG Microbiology Results 05/04/16 Blood Culture, Received Pending 05/04/16 Blood Culture, Received Pending Diagnostic Radiology Portable Chest x-ray shows a right lower lobe and right middle lobe pneumonia, with scattered infiltrates in the left lung as well. Impression Assessment and Plan Portable Chest x-ray shows a right lower lobe and right middle lobe pneumonia, with scattered infiltrates in the left lung as well--the patient be admitted to the telemetry unit with acute respiratory failure with hypoxia secondary to pneumonia. She was placed on vancomycin IV per renal dosing, clindamycin 900 mg IV every 8 hours, aztreonam 1000 mg IV every 8 hours, and Xopenex with Atrovent nebulizer to use every 6 hours while awake and every 2 hours when necessary. The emergency department she presently is requiring 6 L nasal cannula O2 which will be humidified, and will be tapered as her symptoms improve. We'll check a blood gas, the patient may require BiPAP. Obtunded state--patient be admitted to the telemetry unit and will be made nothing by mouth, and all oral medications will be held at this time. Diabetes mellitus--we will decrease Lantus insulin from 24 units subcutaneous to 14 units subcutaneous starting tomorrow evening. We'll hold standing orders for NovoLog, and instead place on Accu-Cheks before meals and at bedtime with NovoLog coverage per scale. Hypertension--hold amlodipine 5 mg by mouth daily, bumetanide 1.5 mg by mouth twice a day, clopidogrel 75 mg by mouth daily metoprolol tartrate 25 mg by mouth twice a day. We'll change digoxin from 0.125 mg by mouth at bedtime to IV at bedtime. We'll attempt to continue warfarin at 3 mg [place] 4 mg every other day, and is unable to take warfarin, will be placed on therapeutic Lovenox starting tomorrow. We'll have when necessary Lopressor IV or hydralazine IV depending upon blood pressure and heart rate results. Hypercholesterolemia--hold atorvastatin 40 mg by mouth daily. Depression--hold Lexapro 10 mg by mouth daily. Peripheral neuropathy--hold gabapentin 900 mg by mouth 3 times a day. Glaucoma--continue Xalatan 1 drop OPB at bedtime. Hypothyroidism--hold levothyroxine sodium 25 g by mouth every 2 days. Next Restless leg syndrome--hold Requip 0.5 mg by mouth daily. Level of Care Telemetry Advanced Directives Existing Advance Directive: No Existing Living Will: No Existing Power of Bottler: No Resuscitation Status FULL RESUSCITATION VTE Prophylaxis VTE Risk Assessment Done? Y/N: Yes Risk Level: Low Given or contraindicated: Warfarin (Coumadin) Social Service Consult Lives in [facility]
[2016-05-04 03:59] LABS: INFLUENZA A PCR Neg for Influ A (NEG); INFLUENZA B PCR Neg for Influ B (NEG)
[2016-05-04] MEDS ORDERED: PATIENT'S HEIGHT AND/OR WEIGHT NEEDED SCH (04:00)
[2016-05-04] MEDS ORDERED: VANCOMYCIN INJ 1,100 MG in SODIUM CHLORIDE 0.9% 250ML 250 ML IV SCH (05:00)
[2016-05-04] MEDS: NSS + 20MEQ KCL 1000ML 1,000 ML IV SCH ×2 (05:05→15:51)
[2016-05-04] MEDS: CLINDAMYCIN IV 900 MG in DEXTROSE 5% ADD-VANTAGE 100ML 100 ML IV SCH ×3 (05:45→21:52)
[2016-05-04] MEDS: INSULIN ASPART 100 UNITS/ML 3 ML PEN SC SCH ×3 (06:00→17:36)
[2016-05-04] MEDS ORDERED: NURSING VERBAL MED ORDER ONE (06:00)
[2016-05-04] MEDS ORDERED: INSULIN ASPART 100 UNITS/ML 3 ML PEN SC SCH (07:00)
--- NOTE | 2016-05-04 07:29 | DIAGNOSTIC IMAGING REPORT ---
CHEST ONE VIEW PORTABLE HISTORY: Sepsis COMPARISON: Chest 03/28/2016. FINDINGS: Multifocal bilateral airspace opacities persist. Suspect small bilateral pleural effusions. The heart remains mildly enlarged. No pneumothorax. Left-sided single lead pacemaker. IMPRESSION: No change in the multifocal bilateral airspace opacities and small bilateral pleural effusions. Electronically signed by: Eliazar Mckeon M.D. 05/04/2016 7:28 AM Dictated Date/Time: 05/04/2016 7:27 AM
[2016-05-04] MEDS: AZTREONAM IV 1,000 MG in DEXTROSE 5% 100ML 100 ML IV SCH ×2 (07:50→15:51)
[2016-05-04] MEDS: SODIUM CHLORIDE 0.65% NA SOLN 45 ML (OCEAN) NAE SCH ×2 (09:00→21:53)
--- NOTE | 2016-05-04 10:20 | Pharmacy Progress Note ---
Pharmacy Antibiotic Consult Date of Service: May 04, 2016. Pharmacy Dosing Scope Pharmacy is consulted to initiate vancomycin IV dosing therapy, order appropriate labs and adjust drug dose/frequency. Subjective The patient is a 86 year old female admitted on May 04, 2016 at 02:48 with pnx/ pulmonary infiltrates on x-ray. She is admitted with acute respiratory failure with hypoxia secondary to pneumonia. Objective Height (Feet): 5 Height (Inches): 6.00 Weight (Kilograms): 91.200 Lab Results (24hrs): Laboratory Tests Test 05/04/16 01:23 05/04/16 10:00 BUN/Creatinine Ratio 28.0 Blood Urea Nitrogen 23 mg/dl Creatinine 0.81 mg/dl White Blood Count 16.37 K/uL Red Blood Count 4.87 M/uL Hemoglobin 13.1 g/dL Hematocrit 40.8 % Mean Corpuscular Volume 83.8 fL Mean Corpuscular Hemoglobin 26.9 pg Mean Corpuscular Hemoglobin Concent 32.1 g/dl Platelet Count 234 K/uL Mean Platelet Volume 9.9 fL Neutrophils (%) (Auto) 86.2 % Lymphocytes (%) (Auto) 5.4 % Monocytes (%) (Auto) 7.6 % Eosinophils (%) (Auto) 0.4 % Basophils (%) (Auto) 0.2 % Neutrophils # (Auto) 14.10 K/uL Lymphocytes # (Auto) 0.89 K/uL Monocytes # (Auto) 1.25 K/uL Eosinophils # (Auto) 0.06 K/uL Basophils # (Auto) 0.03 K/uL Micro Results: Blood cx x 2 are pending. Recent Pertinent Medications Item Value Date Time Aztreonam 1000 mg/ 110 ml @ 100 mls/hr 05/04/16 0800 Dextrose Q8H/IV 05/04/16 0750 Clindamycin 106 ml @ 100 mls/hr 05/04/16 0600 Phosphate 900 mg/ Q8H/IV 05/04/16 0545 Dextrose Ceftriaxone Sodium 1 gm 05/04/16 0143 (Rocephin Inj) NOW STAT/IV 05/04/16 0143 Assessment & Plan Vancomycin: Modified loading dose: 1000 mg IV X 1 dose in ED plus 1100mg on admission to make total of 23mg/kg load, then: 1100mg IV every 18 hours. Goal peak level estimate: between 30 - 40 mcg/mL. Goal trough level estimate: between 15 - 20 mcg/mL. Trough level has been ordered for: 05/05 prior to 1600 dose. Pharmacy will continue to follow and will adjust dose/frequency as necessary. Thank you
[2016-05-04 10:39] LABS: BASO % 0.1 %; BASO ABS # 0.01 K/uL (0-0.2); COMPLETE YES; IG% 0.1 %; LYMPH % 6.9 %; LYMPH ABS # 1.14 K/uL (1.2-3.4); MEAN CELL VOLUME 85.4 fL (80-100); MEAN CORPUSCULAR HEMOGLOBIN 26.8 pg (25-34); MEAN CORPUSCULAR HGB CONC 31.4 g/dl (32-36); MEAN PLATELET VOLUME 10.1 fL (7.4-10.4); MONO % 6.7 %; NEUT % 86.2 %; PLATELET COUNT 199 K/uL (130-400); WHITE BLOOD COUNT 16.62 K/uL (4.8-10.8)
[2016-05-04] MEDS: PANTOprazole INJ 40 MG in SYRINGE 0 ML IV SCH (10:50)
[2016-05-04 11:20] LABS: ALB/GLOB RATIO 0.6 (0.9-2); BUN/CREATININE RATIO 32.5 (10-20); CALCIUM 8.4 mg/dl (8.5-10.1); CREATININE 0.65 mg/dl (0.60-1.20); POTASSIUM 3.9 mmol/L (3.5-5.1)
--- NOTE | 2016-05-04 13:31 | Family Medicine Progress Note ---
Progress Note Date of Service May 04, 2016. Subjective Pt evaluation today including: conversation w/ patient, physical exam, chart review, lab review, review of studies Pain: Patient confused by no complaints of pain when aroused Voiding: no voiding problems, no incontinence Patient is an 86 year old female that presents from [facility] with pneumonia. Patient arousable this morning but somewhat confused. Unable to answer questions without using yes or no answers. Patient on 3L O2 and saturating at 97 % so decreased to 2L O2. Additional Comments: Unable to gather ROS due to AMS Medications Current Inpatient Medications Medications (Trade) Dose Ordered Sig/Tariq Route Start Time Stop Time Status Last Admin Dose Admin Potassium Chloride/Sodium Chloride (Nss + 20meq KCl 1000ml) 1,000 ml @ 100 mls/hr Q10H IV 05/04/16 04:30 06/03/16 04:29 05/04/16 05:05 100 MLS/HR Insulin Glargine (Lantus Solostar Pen) 14 unit QPM SC 05/04/16 21:00 06/03/16 20:59 Latanoprost (Xalatan Oph Soln) 1 drops HS OPB 05/04/16 21:00 06/03/16 20:59 Sodium Chloride ([place] Nasal [place]) 2 sprays BID ADELA 05/04/16 09:00 06/03/16 08:59 Warfarin Sodium (Coumadin Tab) 3 mg SuTuThSa@1600 PO 05/04/16 16:00 06/03/16 15:59 Warfarin Sodium 4 mg 4 mg MoWeFr@1600 PO 05/05/16 16:00 06/04/16 15:59 Digoxin/Syringe (Digoxin IV/ Syringe) 10 ml @ 2 mls/min DAILY@16 IV 05/04/16 16:00 06/03/16 15:59 Ondansetron HCl 4 mg 4 mg Q6H PRN IV 05/04/16 03:00 06/03/16 02:59 Acetaminophen (Ofirmev Iv) 100 ml @ 400 mls/hr Q8H PRN IV 05/04/16 03:00 06/03/16 02:59 Glucose (Glucose 40% Gel) UD PRN PO 05/04/16 03:00 06/03/16 02:59 Glucose (Glucose Chew Tab) 1 tabs UD PRN PO 05/04/16 03:00 06/03/16 02:59 Dextrose (Dextrose 50% 50ML Syringe) 50 ml UD PRN IV 05/04/16 03:00 06/03/16 02:59 Glucagon 1 mg 1 mg UD PRN SQ 05/04/16 03:00 06/03/16 02:59 Pantoprazole Sodium/Syringe (Protonix Inj/ Syringe) 10 ml @ 5 mls/min DAILY@11 IV 05/04/16 11:00 06/03/16 10:59 05/04/16 10:50 5 MLS/MIN Vancomycin HCl 1 ea 1 ea DAILY PRN N/A 05/04/16 03:11 06/03/16 03:10 Aztreonam 1000 mg/ Dextrose 110 ml @ 100 mls/hr Q8H IV 05/04/16 08:00 05/11/16 07:59 05/04/16 07:50 100 MLS/HR Clindamycin Phosphate/Dextrose (Cleocin Iv/ Dextrose Add-[place] 100ML) 106 ml @ 100 mls/hr Q8H IV 05/04/16 06:00 05/11/16 05:59 05/04/16 05:45 100 MLS/HR Insulin Aspart SLIDING SCALE If C... Q6 SC 05/04/16 06:00 06/03/16 05:59 05/04/16 12:00 2 UNITS Vancomycin HCl/ Sodium Chloride (Vancomycin Inj/ Nss 250ml) 272 ml @ 125 mls/hr Q18H IV 05/04/16 22:00 05/11/16 21:59 Objective Vital Signs Date Time Temp Pulse Resp B/P Pulse Ox O2 Delivery O2 Flow Rate FiO2 05/04/16 11:49 97 Nasal Cannula 1.0 05/04/16 11:43 36.6 59 19 129/68 98 05/04/16 08:14 36.9 61 16 118/54 96 Nasal Cannula 3.0 05/04/16 08:10 96 Nasal Cannula 3.0 05/04/16 04:15 36.9 60 16 123/73 96 Nasal Cannula 3.0 05/04/16 03:44 56 18 137/40 96 05/04/16 03:00 78 16 127/69 97 Nasal Cannula 6.0 05/04/16 01:24 73 05/04/16 01:15 95 Nasal Cannula 6.0 05/04/16 01:15 39.2 73 26 157/64 94 Nasal Cannula 6.0 Physical Exam General Appearance: WD/WN, no apparent distress Neck: supple, no carotid bruits Respiratory/Chest: chest non-tender, + decreased breath sounds, + rales Cardiovascular: regular rate, rhythm, no edema, + systolic murmur Abdomen: normal bowel sounds, non tender, soft Neurologic/Psychiatric: + disoriented Laboratory Results Results Past 24 Hours Test 05/04/16 01:23 05/04/16 01:25 05/04/16 01:32 05/04/16 02:00 Range/Units White Blood Count 16.37 4.8-10.8 K/uL Red Blood Count 4.87 4.2-5.4 M/uL Hemoglobin 13.1 12.0-16.0 g/dL Hematocrit 40.8 37-47 % Mean Corpuscular Volume 83.8 80-100 fL Mean Corpuscular Hemoglobin 26.9 25-34 pg Mean Corpuscular Hemoglobin Concent 32.1 32-36 g/dl Platelet Count 234 130-400 K/uL Mean Platelet Volume 9.9 7.4-10.4 fL Neutrophils (%) (Auto) 86.2 % Lymphocytes (%) (Auto) 5.4 % Monocytes (%) (Auto) 7.6 % Eosinophils (%) (Auto) 0.4 % Basophils (%) (Auto) 0.2 % Neutrophils # (Auto) 14.10 1.4-6.5 K/uL Lymphocytes # (Auto) 0.89 1.2-3.4 K/uL Monocytes # (Auto) 1.25 0.11-0.59 K/uL Eosinophils # (Auto) 0.06 0-0.5 K/uL Basophils # (Auto) 0.03 0-0.2 K/uL RDW Standard Deviation 49.3 36.4-46.3 fL RDW Coefficient of Variation 16.1 11.5-14.5 % Immature Granulocyte % (Auto) 0.2 % Immature Granulocyte # (Auto) 0.04 0.00-0.02 K/uL Erythrocyte Sedimentation Rate 90 0-21 mm/hr Venous Blood pH 7.38 7.36-7.41 Venous Blood Partial Pressure CO2 67 38.0-50.0 mmHg Venous Blood Partial Pressure O2 21 mmHg Venous Blood HCO3 39 mmol/L Venous Blood Oxygen Saturation < 60.0 % Venous Blood Base Excess 10.6 mmol/L Sodium Level 141 136-145 mmol/L Potassium Level 4.6 3.5-5.1 mmol/L Chloride Level 99 98-107 mmol/L Carbon Dioxide Level 35 21-32 mmol/L Anion Gap 7.0 3-11 mmol/L Blood Urea Nitrogen 23 7-18 mg/dl Creatinine 0.81 0.60-1.20 mg/dl Estimated GFR () 75.7 Estimated GFR (Non- 65.3 BUN/Creatinine Ratio 28.0 10-20 Random Glucose 211 70-99 mg/dl Calcium Level 9.4 8.5-10.1 mg/dl Phosphorus Level 2.7 2.5-4.9 mg/dl Magnesium Level 2.0 1.8-2.4 mg/dl Total Bilirubin 0.5 0.2-1 mg/dl Aspartate Amino Transf (AST/SGOT) 38 15-37 U/L Alanine Aminotransferase (ALT/SGPT) 44 12-78 U/L Alkaline Phosphatase 335 45-117 U/L Total Creatine Kinase 72 26-192 U/L Creatine Kinase MB 1.2 0.5-3.6 ng/ml Creatine Kinase MB Ratio 1.7 0-3.0 Troponin I 0.025 0-0.045 ng/ml C-Reactive Protein 1.72 0-0.29 mg/dl Pro-B-Type Natriuretic Peptide 1486 0-1800 pg/ml Total Protein 7.6 6.4-8.2 gm/dl Albumin 2.9 3.4-5.0 gm/dl Globulin 4.7 2.5-4.0 gm/dl Albumin/Globulin Ratio 0.6 0.9-2 Lipase 109 73-393 U/L Digoxin Level 0.6 0.8-2.0 ng/ml Prothrombin Time 26.2 9.0-12.0 SECONDS Prothromb Time International Ratio 2.4 0.9-1.1 Activated Partial Thromboplast Time 38.8 21.0-31.0 SECONDS Partial Thromboplastin Ratio 1.5 Bedside Lactic Acid Venous 2.89 0.90-1.70 mmol/L Urine Color YELLOW Urine Appearance CLEAR CLEAR Urine pH 7.5 4.5-7.5 Urine Specific [place] 1.008 1.000-1.030 Urine Protein NEG NEG Urine Glucose (UA) NEG NEG Urine Ketones NEG NEG Urine Occult Blood 1+ NEG Urine Nitrite NEG NEG Urine Bilirubin NEG NEG Urine Urobilinogen NEG NEG Urine Leukocyte Esterase NEG NEG Urine WBC (Auto) 0 0-5 /hpf Urine RBC (Auto) 10-30 0-4 /hpf Urine Hyaline Casts (Auto) 1-5 0-5 /lpf Urine Epithelial Cells (Auto) 0-5 0-5 /lpf Urine Bacteria (Auto) NEG NEG Influenza Type A (RT-PCR) Neg for Influ A NEG Influenza Type A Antigen Neg for Influ A NEG Influenza Type B Antigen Neg for Influ B NEG Influenza Type B (RT-PCR) Neg for Influ B NEG Test 05/04/16 05:51 05/04/16 10:30 05/04/16 11:24 Range/Units Bedside Glucose 207 210 70-90 mg/dl White Blood Count 16.62 4.8-10.8 K/uL Red Blood Count 4.10 4.2-5.4 M/uL Hemoglobin 11.0 12.0-16.0 g/dL Hematocrit 35.0 37-47 % Mean Corpuscular Volume 85.4 80-100 fL Mean Corpuscular Hemoglobin 26.8 25-34 pg Mean Corpuscular Hemoglobin Concent 31.4 32-36 g/dl Platelet Count 199 130-400 K/uL Mean Platelet Volume 10.1 7.4-10.4 fL Neutrophils (%) (Auto) 86.2 % Lymphocytes (%) (Auto) 6.9 % Monocytes (%) (Auto) 6.7 % Eosinophils (%) (Auto) 0.0 % Basophils (%) (Auto) 0.1 % Neutrophils # (Auto) 14.33 1.4-6.5 K/uL Lymphocytes # (Auto) 1.14 1.2-3.4 K/uL Monocytes # (Auto) 1.12 0.11-0.59 K/uL Eosinophils # (Auto) 0.00 0-0.5 K/uL Basophils # (Auto) 0.01 0-0.2 K/uL RDW Standard Deviation 51.8 36.4-46.3 fL RDW Coefficient of Variation 16.4 11.5-14.5 % Immature Granulocyte % (Auto) 0.1 % Immature Granulocyte # (Auto) 0.02 0.00-0.02 K/uL Sodium Level 137 136-145 mmol/L Potassium Level 3.9 3.5-5.1 mmol/L Chloride Level 100 98-107 mmol/L Carbon Dioxide Level 36 21-32 mmol/L Anion Gap 1.0 3-11 mmol/L Blood Urea Nitrogen 21 7-18 mg/dl Creatinine 0.65 0.60-1.20 mg/dl Est Creatinine Clear Calc Drug Dose 69.3 ml/min Estimated GFR () 92.5 Estimated GFR (Non- 79.8 BUN/Creatinine Ratio 32.5 10-20 Random Glucose 205 70-99 mg/dl Lactic Acid Level 1.2 0.4-2.0 mmol/L Calcium Level 8.4 8.5-10.1 mg/dl Total Bilirubin 0.5 0.2-1 mg/dl Aspartate Amino Transf (AST/SGOT) 31 15-37 U/L Alanine Aminotransferase (ALT/SGPT) 35 12-78 U/L Alkaline Phosphatase 264 45-117 U/L Total Protein 6.3 6.4-8.2 gm/dl Albumin 2.3 3.4-5.0 gm/dl Globulin 4.0 2.5-4.0 gm/dl Albumin/Globulin Ratio 0.6 0.9-2 Microbiology Results 05/04/16 Blood Culture, Received Pending 05/04/16 Blood Culture, Received Pending Assessment and Plan Patient is an 86 year old Female that presented to [facility] with fevers, shortness of breath, and cough 1) Acute Hypoxic Respiratory Failure 2/2 Pneumonia - CXR in ED: RLL and RML PNA with scattered inflifiltrates of Left Lung - Vancomycin, Clindamycin, and Aztreonam IV Antibiotic Regimen - Xopenex and Atrovent Nebulizers scheduled and as needed - Currently on 1L of oxygen and saturating 97%, continue to wean oxygen - Currently afebrile (39.2 Rectal Temp in the ED) 2) Altered Mental Status - 2/2 Hypoxia and Fevers - Arousable this morning but still confused 3) Diabetes - Lantus 14units qPM - Insulin Novolog sliding scale 4) COPD - Xopenex - Atrovent - At Home - Symbicort 2 Puff BID, Ventolin q4 PRN 5) Atrial Fibrillation - IV Metoprolol - Digoxin 125mcg IV - Warfarin 3mg/4mg alternating days at home - INR 2.4 today, currently holding PO meds . If can't resume home meds tonight or tomorrow consider starting therapeutic Lovenox 6) Hypertension - Norvasc 5mg PO Daily - Home Medication - Currently holding PO Home Medications 7) Hyperlipidemia - Lipitor 40mg PO Daily - Home Medication - Currently holding PO Home Medications 8) Antiplatelet Therapy (Stroke?) - Plavix 75mg Tab Once Daily - Currently holding PO Home Medications 9) Hyperthyroidism - Levothyroxine 25 mcg po q2D Home Medications - Currently holding PO Home Medications 10) DVT Prophylaxis - INR 2.4, Holding Coumadin and PO meds for now - Watch INR - Consider therapeutic lovenox if continuing to hold Coumadin
[2016-05-04] MEDS: DIGOXIN IV 125 MCG in SYRINGE 9.5 ML IV SCH (15:52)
[2016-05-04] MEDS: WARFARIN SOD 3 MG TAB PO SCH (15:52)
[2016-05-04] MEDS: LATANOPROST 0.005% OP SOLN 2.5 ML BTL OPB SCH (21:52)
[2016-05-04] MEDS: VANCOMYCIN INJ 1,100 MG in SODIUM CHLORIDE 0.9% 250ML 250 ML IV SCH (21:56)
[2016-05-04] MEDS: INSULIN GLARGINE SOLOSTAR 100 UNITS/ML 3 ML PEN SC SCH (23:30)
[2016-05-05] VITALS (9 sets, daily range): BP systolic 122–145; BP diastolic 52–68; PULSE 63–95; TEMP 36.7–37.5; O2SAT 91–94
[2016-05-05] MEDS: NSS + 20MEQ KCL 1000ML 1,000 ML IV SCH ×3 (00:22→22:07)
[2016-05-05] MEDS: AZTREONAM IV 1,000 MG in DEXTROSE 5% 100ML 100 ML IV SCH ×3 (01:32→16:28)
[2016-05-05] MEDS: INSULIN ASPART 100 UNITS/ML 3 ML PEN SC SCH ×5 (06:00→21:23)
[2016-05-05] MEDS: CLINDAMYCIN IV 900 MG in DEXTROSE 5% ADD-VANTAGE 100ML 100 ML IV SCH ×3 (06:13→22:08)
[2016-05-05 06:37] LABS: BASO % 0.2 %; BASO ABS # 0.03 K/uL (0-0.2); COMPLETE YES; EOS % 1.6 %; HEMATOCRIT 34.4 % (37-47); IG% 0.3 %; LYMPH % 6.7 %; LYMPH ABS # 0.89 K/uL (1.2-3.4); MEAN CELL VOLUME 86.9 fL (80-100); MEAN CORPUSCULAR HEMOGLOBIN 26.5 pg (25-34); MEAN CORPUSCULAR HGB CONC 30.5 g/dl (32-36); MEAN PLATELET VOLUME 9.9 fL (7.4-10.4); MONO % 7.1 %; NEUT % 84.1 %; PLATELET COUNT 189 K/uL (130-400); RED BLOOD COUNT 3.96 M/uL (4.2-5.4); WHITE BLOOD COUNT 13.26 K/uL (4.8-10.8)
[2016-05-05 06:59] LABS: INR 3.1 (0.9-1.1); PARTIAL THROMBOPLASTIN RATIO 1.8; PROTHROMBIN TIME (PATIENT) 34.3 SECONDS (9.0-12.0)
[2016-05-05 07:02] LABS: BUN/CREATININE RATIO 24.3 (10-20); CALCIUM 8.4 mg/dl (8.5-10.1); CREATININE 0.61 mg/dl (0.60-1.20); MAGNESIUM 2.1 mg/dl (1.8-2.4); POTASSIUM 3.4 mmol/L (3.5-5.1)
[2016-05-05] MEDS: SODIUM CHLORIDE 0.65% NA SOLN 45 ML (OCEAN) NAE SCH ×2 (09:00→21:29)
--- NOTE | 2016-05-05 09:08 | Clinical Documentation Query ---
CLINICAL DOCUMENTATION QUERY 86 year old female who presents to the Emergency Room with acute hypoxic respiratory failure In your clinical opinion is this patient being managed for: ( ) Chronic diastolic (preserved EF) heart failure monitored with I/O's, daily weights, and telemetry. ( ) Other explanation of clinical findings (Please Explain) ( ) Unable to determine (Please Define) ( ) Need to Discuss ( ) Not Agree ( X) Preserved EF congested heart failure The medical record reflects the following clinical findings, treatment, and risk factors. Clinical Indicators: H&P indicates a CHF. The medical record documentation is now expected to include definitive and explicit description of the patient's heart failure; vague terms such as "heart failure," ventricular dysfunction," and "CHF" may not fully capture the physician's intended level of severity. Echo 12/23/13 showed EF of 65-70% severe aortic stenosis, valvular HD, and severe pulmonary htn. Treatment: I/O's, daily weights, and telemetry. Risk Factors: age, htn, cad, and valvular HD Please clarify and document your clinical opinion in the progress notes and discharge summary. Terms such as "probable", "suspected", "likely", "questionable", "possible", or "still to be ruled out" are acceptable. IF IN AGREEMENT, YOU MUST DOCUMENT ABOVE DIAGNOSTIC STATEMENT IN DAILY PROGRESS NOTES AND DISCHARGE SUMMARY. This document is not part of the patient's record. Thank You, Richard Mayberry, CORRINE [phone]
[2016-05-05] MEDS: PANTOprazole INJ 40 MG in SYRINGE 0 ML IV SCH (10:35)
[2016-05-05] MEDS ORDERED: NURSING VERBAL MED ORDER ONE (12:15)
[2016-05-05] MEDS ORDERED: ALBUTEROL SULF PO PRN (12:30)
--- NOTE | 2016-05-05 12:54 | Family Medicine Progress Note ---
Progress Note Date of Service May 05, 2016. Subjective Pt evaluation today including: conversation w/ patient, physical exam, lab review, review of studies Voiding: incontinence No acute events overnight night. Patient was alert and awake. She was able to tell where she is, her full name, season and year. According to the nurse she is more awake and alert today compare to yesterday. Patient complains of left leg pain, which is most likely neuropathic pain. Also complains of suprapubic pain, which is most likely due to urinary retention. Denies SOB, chest pain, cough, palpitation, headache, or any other additional symptoms. Constitutional: No chills, No fever Respiratory: No cough, No dyspnea on exertion, No shortness of breath, No sputum, No wheezing Cardiovascular: No chest pain Abdomen: + pain (suprapubic pain), No constipation, No diarrhea, No nausea, No vomiting Female : + incontinence, No dysuria Skin: No rash Medications Current Inpatient Medications Medications (Trade) Dose Ordered Sig/Tariq Route Start Time Stop Time Status Last Admin Dose Admin Potassium Chloride/Sodium Chloride (Nss + 20meq KCl 1000ml) 1,000 ml @ 100 mls/hr Q10H IV 05/04/16 04:30 06/03/16 04:29 05/05/16 10:35 100 MLS/HR Insulin Glargine (Lantus Solostar Pen) 14 unit QPM SC 05/04/16 21:00 06/03/16 20:59 05/04/16 23:30 14 UNIT Latanoprost (Xalatan Oph Soln) 1 drops HS OPB 05/04/16 21:00 06/03/16 20:59 05/04/16 21:52 1 DROPS Sodium Chloride ([place] Nasal [place]) 2 sprays BID ADELA 05/04/16 09:00 06/03/16 08:59 Warfarin Sodium (Coumadin Tab) 3 mg SuTuThSa@1600 PO 05/04/16 16:00 06/03/16 15:59 Warfarin Sodium 4 mg 4 mg MoWeFr@1600 PO 05/05/16 16:00 06/04/16 15:59 Digoxin/Syringe (Digoxin IV/ Syringe) 10 ml @ 2 mls/min DAILY@16 IV 05/04/16 16:00 06/03/16 15:59 05/04/16 15:52 2 MLS/MIN Ondansetron HCl 4 mg 4 mg Q6H PRN IV 05/04/16 03:00 06/03/16 02:59 Acetaminophen (Ofirmev Iv) 100 ml @ 400 mls/hr Q8H PRN IV 05/04/16 03:00 06/03/16 02:59 Glucose (Glucose 40% Gel) UD PRN PO 05/04/16 03:00 06/03/16 02:59 Glucose (Glucose Chew Tab) 1 tabs UD PRN PO 05/04/16 03:00 06/03/16 02:59 Dextrose (Dextrose 50% 50ML Syringe) 50 ml UD PRN IV 05/04/16 03:00 06/03/16 02:59 05/05/16 06:07 50 ML Glucagon 1 mg 1 mg UD PRN SQ 05/04/16 03:00 06/03/16 02:59 Pantoprazole Sodium/Syringe (Protonix Inj/ Syringe) 10 ml @ 5 mls/min DAILY@11 IV 05/04/16 11:00 06/03/16 10:59 05/05/16 10:35 5 MLS/MIN Vancomycin HCl 1 ea 1 ea DAILY PRN N/A 05/04/16 03:11 06/03/16 03:10 Aztreonam 1000 mg/ Dextrose 110 ml @ 100 mls/hr Q8H IV 05/04/16 08:00 05/11/16 07:59 05/05/16 07:44 100 MLS/HR Clindamycin Phosphate 900 mg/ Dextrose 106 ml @ 100 mls/hr Q8H IV 05/04/16 06:00 05/11/16 05:59 05/05/16 06:13 100 MLS/HR Vancomycin HCl/ Sodium Chloride (Vancomycin Inj/ Nss 250ml) 272 ml @ 125 mls/hr Q18H IV 05/04/16 22:00 05/11/16 21:59 05/04/16 21:56 125 MLS/HR Insulin Aspart (novoLOG ASPART) SLIDING SCALE If C... ACHS SC 05/05/16 16:15 06/04/16 16:14 Amlodipine Besylate (Norvasc Tab) 5 mg DAILY PO 05/06/16 09:00 06/05/16 08:59 UNV Atorvastatin Calcium (Lipitor Tab) 40 mg DAILY PO 05/06/16 09:00 06/05/16 08:59 UNV Budesonide/ Formoterol Fumarate (Symbicort 160/ 4.5 Inh) 2 puffs BID INH 05/05/16 21:00 06/04/16 20:59 UNV Clopidogrel Bisulfate (plAVix TAB) 75 mg DAILY PO 05/06/16 09:00 06/05/16 08:59 UNV Escitalopram Oxalate (Lexapro Tab) 10 mg DAILY PO 05/06/16 09:00 06/05/16 08:59 UNV Gabapentin (Neurontin Cap) 900 mg TID PO 05/05/16 14:00 06/04/16 13:59 UNV Levothyroxine Sodium (Synthroid Tab) 25 mcg Q2D PO 05/05/16 12:30 06/04/16 12:29 UNV Magnesium Oxide (Mag-Ox Tab) 400 mg BID PO 05/05/16 21:00 06/04/16 20:59 UNV Metoprolol Tartrate (Lopressor Tab) 25 mg BID PO 05/05/16 21:00 06/04/16 20:59 UNV Ropinirole HCl (Requip Tab) 0.5 mg DAILY PO 05/06/16 09:00 06/05/16 08:59 UNV Senna (Senokot Tab) 8.6 mg DAILY PO 05/06/16 09:00 06/05/16 08:59 UNV Non-Formulary Medication (Alendronate Sodium (Binosto)) 70 mg MONDAYS PO 05/05/16 12:30 06/04/16 12:29 UNV Non-Formulary Medication (Bepotastine Besilate (Bepreve)) 1 drop BID OPB 05/05/16 21:00 06/04/16 20:59 UNV Non-Formulary Medication (Bumetanide ) 1.5 mg BID PO 05/05/16 21:00 06/04/16 20:59 UNV Non-Formulary Medication (Potassium Chloride (Potassium Chloride Er)) 10 meq DAILY PO 05/06/16 09:00 06/05/16 08:59 UNV Albuterol Sulfate (Ventolin Syrup) 2 mg Q4H PRN PO 05/05/16 12:30 06/04/16 12:29 UNV Objective Vital Signs Date Time Temp Pulse Resp B/P Pulse Ox O2 Delivery O2 Flow Rate FiO2 05/05/16 12:19 94 Nasal Cannula 2.0 05/05/16 10:33 37.5 75 20 145/68 94 Nasal Cannula 2.0 05/05/16 07:37 Nasal Cannula 2.0 05/05/16 07:32 36.9 79 20 122/52 94 2.0 05/05/16 04:18 Nasal Cannula 1.0 05/05/16 03:37 37.3 63 21 134/63 91 Nasal Cannula 2.0 05/04/16 23:52 Nasal Cannula 1.0 05/04/16 23:13 37.6 69 22 107/57 93 Nasal Cannula 2.0 05/04/16 20:00 Nasal Cannula 1.0 05/04/16 18:58 36.9 80 22 122/53 90 Nasal Cannula 2.0 05/04/16 16:33 95 Nasal Cannula 1.0 05/04/16 15:52 64 05/04/16 15:22 36.4 61 19 119/47 95 Nasal Cannula 2.0 Physical Exam General Appearance: WD/WN, no apparent distress Neck: supple, trachea midline Respiratory/Chest: chest non-tender, no respiratory distress, no accessory muscle use, + decreased breath sounds Cardiovascular: regular rate, rhythm, + systolic murmur Abdomen: normal bowel sounds, soft Extremities: + pedal edema (noted on the left leg ), + pertinent finding ( Right leg amputation) Neurologic/Psychiatric: alert, normal mood/affect Skin: normal color, warm/dry Laboratory Results Results Past 24 Hours Test 05/04/16 16:16 05/05/16 00:09 05/05/16 06:13 05/05/16 06:19 Range/Units Bedside Glucose 121 96 70-90 mg/dl White Blood Count 13.26 4.8-10.8 K/uL Red Blood Count 3.96 4.2-5.4 M/uL Hemoglobin 10.5 12.0-16.0 g/dL Hematocrit 34.4 37-47 % Mean Corpuscular Volume 86.9 80-100 fL Mean Corpuscular Hemoglobin 26.5 25-34 pg Mean Corpuscular Hemoglobin Concent 30.5 32-36 g/dl Platelet Count 189 130-400 K/uL Mean Platelet Volume 9.9 7.4-10.4 fL Neutrophils (%) (Auto) 84.1 % Lymphocytes (%) (Auto) 6.7 % Monocytes (%) (Auto) 7.1 % Eosinophils (%) (Auto) 1.6 % Basophils (%) (Auto) 0.2 % Neutrophils # (Auto) 11.15 1.4-6.5 K/uL Lymphocytes # (Auto) 0.89 1.2-3.4 K/uL Monocytes # (Auto) 0.94 0.11-0.59 K/uL Eosinophils # (Auto) 0.21 0-0.5 K/uL Basophils # (Auto) 0.03 0-0.2 K/uL RDW Standard Deviation 53.5 36.4-46.3 fL RDW Coefficient of Variation 16.7 11.5-14.5 % Immature Granulocyte % (Auto) 0.3 % Immature Granulocyte # (Auto) 0.04 0.00-0.02 K/uL Prothrombin Time 34.3 9.0-12.0 SECONDS Prothromb Time International Ratio 3.1 0.9-1.1 Activated Partial Thromboplast Time 47.0 21.0-31.0 SECONDS Partial Thromboplastin Ratio 1.8 Sodium Level 141 136-145 mmol/L Potassium Level 3.4 3.5-5.1 mmol/L Chloride Level 103 98-107 mmol/L Carbon Dioxide Level 34 21-32 mmol/L Anion Gap 4.0 3-11 mmol/L Blood Urea Nitrogen 15 7-18 mg/dl Creatinine 0.61 0.60-1.20 mg/dl Est Creatinine Clear Calc Drug Dose 72.4 ml/min Estimated GFR () 94.5 Estimated GFR (Non- 81.5 BUN/Creatinine Ratio 24.3 10-20 Random Glucose 115 70-99 mg/dl Calcium Level 8.4 8.5-10.1 mg/dl Magnesium Level 2.1 1.8-2.4 mg/dl Test 05/05/16 06:25 05/05/16 11:35 Range/Units Bedside Glucose 105 77 70-90 mg/dl Microbiology Results 05/04/16 MRSA DNA Surveillance Screen - Final, Complete Specimen Negative for MRSA by DNA Probe Assessment and Plan Patient is an 86 year old Female that presented to the hospital from [facility]F with fevers, shortness of breath, and cough. Resume diet and all the home medications. 1. Acute Hypoxic Respiratory Failure 2/2 Pneumonia - CXR in ED: RLL and RML pneumonia with scattered infiltrates of Left Lung - Day #2 IV Vancomycin, Clindamycin, and Aztreonam - Currently on 1L of oxygen and maintaining O2 in 90s, continue to wean oxygen - Currently afebrile (39.2 Rectal Temp in the ED) - Influenza negative, UA negative, Nasal swab for MRSA negative - Blood Cx (05/04): no growth to date 2. Altered Mental Status (resolved) - 2/2 Hypoxia and Fevers - Patient was alert and awake this morning. - Started her on diet today and resumed all the home medications. 3. Diabetes - Lantus 14units qPM - Insulin Novolog sliding scale - Continue to monitor glucose 4. COPD - Continue Symbicort 2 Puff BID - Continue Ventolin syrup 2mg q4 prn for wheezing 5. Atrial Fibrillation - Continue Metoprolol 25mg BID - Continue Digoxin 125mcg IV - Continue Warfarin 3mg/4mg alternating days 6. Hypertension - Continue Norvasc 5mg PO Daily 7. Hyperlipidemia - Continue Lipitor 40mg PO Daily 8. Antiplatelet Therapy (Stroke?) - Continue Plavix 75mg Tab Once Daily 9. Hyperthyroidism - Continue Levothyroxine 25 mcg po q2D 10. Neuropathic pain - Continue gabapentin 900mg TID 11. Depression - Continue Lexapro 10mg daily 12. DVT Prophylaxis - Coumadin Resident Physician Supervision Note: I was present with Dr. Hicks during the history and exam. I discussed the case with the resident and agree with the findings and plan as documented in the note. Any exceptions or clarifications are listed here: 86-year-old female admitted from a local senior care with mental status change subsequently diagnosed with hypoxic respiratory failure secondary to pneumonia. Today, her mentation seems to be improved. She is afebrile and is holding oxygen saturation levels in the 90s on nasal cannula oxygen. Blood cultures are negative thus far and her leukocytosis is improving. The patient had some suprapubic pain and tenderness upon my examination today. A subsequent bladder scan by nursing revealed approximately 350 mL in the bladder, during which time the patient became incontinent with prompt relief of her discomfort. She also had some pain of the left lower extremity with very light touch of the skin; there is no significant edema to suggest a DVT; there is no rash to suggest cellulitis or even zoster considering how much discomfort she had with light touch. We'll continue to monitor this area. Continue current care. If blood cultures are negative can likely adjust antibiotics tomorrow. Documented By: Nahid Valdes
[2016-05-05] MEDS: GABAPENTIN 300 MG CAP PO SCH ×2 (14:34→21:19)
[2016-05-05] MEDS ORDERED: VANCOMYCIN TROUGH SCH (15:30)
[2016-05-05] MEDS: BUMETANIDE 1 MG TAB PO SCH (16:24)
[2016-05-05] MEDS: DIGOXIN IV 125 MCG in SYRINGE 9.5 ML IV SCH (16:24)
[2016-05-05] MEDS: VANCOMYCIN INJ 1,100 MG in SODIUM CHLORIDE 0.9% 250ML 250 ML IV SCH (16:29)
[2016-05-05] MEDS: WARFARIN SOD 4 MG TAB PO SCH (16:29)
[2016-05-05] MEDS: LATANOPROST 0.005% OP SOLN 2.5 ML BTL OPB SCH (21:16)
[2016-05-05] MEDS: MAGNESIUM OXIDE 400 MG TAB PO SCH (21:17)
[2016-05-05] MEDS: METOPROLOL TARTRATE 25 MG TAB PO SCH (21:17)
[2016-05-05] MEDS: BUDESONIDE/FORMOTEROL FUMARATE 160/4.5 60 PUFFS/INHALER INH SCH (21:18)
[2016-05-05] MEDS: INSULIN GLARGINE SOLOSTAR 100 UNITS/ML 3 ML PEN SC SCH (21:23)
--- NOTE | 2016-05-05 21:33 | Pharmacy Progress Note ---
Pharmacy Antibiotic Prog Note Date of Service: May 05, 2016. Subjective: The patient is currently receiving Vancomycin 1100 mg IV every 18 hours. The patient is currently on day # 2 of IV therapy. Objective: Height (Feet): 5 Height (Inches): 6.00 Weight (Kilograms): 87.500 Levels: Item Value Date Time Vancomycin Level Trough 9.8 mcg/ml 05/05/16 1534 Lab Results (24hrs): Laboratory Tests Test 05/05/16 06:13 05/05/16 06:19 White Blood Count 13.26 K/uL Red Blood Count 3.96 M/uL Hemoglobin 10.5 g/dL Hematocrit 34.4 % Mean Corpuscular Volume 86.9 fL Mean Corpuscular Hemoglobin 26.5 pg Mean Corpuscular Hemoglobin Concent 30.5 g/dl Platelet Count 189 K/uL Mean Platelet Volume 9.9 fL Neutrophils (%) (Auto) 84.1 % Lymphocytes (%) (Auto) 6.7 % Monocytes (%) (Auto) 7.1 % Eosinophils (%) (Auto) 1.6 % Basophils (%) (Auto) 0.2 % Neutrophils # (Auto) 11.15 K/uL Lymphocytes # (Auto) 0.89 K/uL Monocytes # (Auto) 0.94 K/uL Eosinophils # (Auto) 0.21 K/uL Basophils # (Auto) 0.03 K/uL BUN/Creatinine Ratio 24.3 Blood Urea Nitrogen 15 mg/dl Creatinine 0.61 mg/dl Micro Results: Item Value Date Time MRSA DNA Surveillance Screen - Final Complete 05/04/161999 Nasal Specimen Negative for MRSA by DNA Probe Blood Culture - Preliminary Resulted 05/04/16 0125 Blood NO GROWTH TO DATE. Blood Culture - Preliminary Resulted 05/04/16 0123 Blood NO GROWTH TO DATE. Recent Pertinent Medications: Item Value Date Time Clindamycin 106 ml @ 100 mls/hr 05/04/16 0600 Phosphate 900 mg/ Q8H/IV 05/05/16 1338 Dextrose Aztreonam 1000 mg/ 110 ml @ 100 mls/hr 05/04/16 0800 Dextrose Q8H/IV 05/05/16 1628 Assessment & Plan: ASSESSMENT * 86 yo F admitted with pneumonia, initiated on broad spectrum antibiotics: Vancomycin, Azactam, Clindamycin IV. * Blood cultures negative. MRSA swab negative. PLAN * This drug level is: Subtherapeutic * Increase to Vancomycin 1100 mg IV every 12 hours. * This regimen is aggressive- if suspected MRSA pneumonia- should be as close to 20 mcg/mL as possible. * However, based on culture results, recommend de-escalation of antibiotics * Clindamycin provides gram positive coverage, in addition to [place]- MRSA coverage * A follow up trough level has been ordered for: prior to the 0400 dose. Pharmacy will continue to follow and will adjust dose/frequency as necessary. Thank you
[2016-05-06] VITALS (7 sets, daily range): BP systolic 109–138; BP diastolic 58–69; PULSE 60–77; TEMP 36.4–37.2; O2SAT 91–95
[2016-05-06] MEDS: AZTREONAM IV 1,000 MG in DEXTROSE 5% 100ML 100 ML IV SCH ×3 (00:10→15:32)
[2016-05-06] MEDS: VANCOMYCIN INJ 1,100 MG in SODIUM CHLORIDE 0.9% 250ML 250 ML IV SCH ×2 (04:42→15:32)
[2016-05-06] MEDS: CLINDAMYCIN IV 900 MG in DEXTROSE 5% ADD-VANTAGE 100ML 100 ML IV SCH ×2 (06:09→13:28)
[2016-05-06] MEDS: LEVOTHYROXINE 25 MCG TAB PO SCH (06:10)
[2016-05-06 06:19] LABS: BASO % 0.2 %; BASO ABS # 0.02 K/uL (0-0.2); COMPLETE YES; EOS % 1.3 %; HEMATOCRIT 30.6 % (37-47); IG% 0.4 %; LYMPH % 8.3 %; LYMPH ABS # 0.92 K/uL (1.2-3.4); MEAN CELL VOLUME 84.5 fL (80-100); MEAN CORPUSCULAR HEMOGLOBIN 26.5 pg (25-34); MEAN CORPUSCULAR HGB CONC 31.4 g/dl (32-36); MONO % 7.7 %; NEUT % 82.1 %; PLATELET COUNT 176 K/uL (130-400); RED BLOOD COUNT 3.62 M/uL (4.2-5.4); WHITE BLOOD COUNT 11.12 K/uL (4.8-10.8)
[2016-05-06 06:37] LABS: PARTIAL THROMBOPLASTIN RATIO 1.9; PROTHROMBIN TIME (PATIENT) 41.7 SECONDS (9.0-12.0)
[2016-05-06 06:48] LABS: INR 3.7 (0.9-1.1)
[2016-05-06 06:57] LABS: BUN/CREATININE RATIO 23.7 (10-20); CALCIUM 7.9 mg/dl (8.5-10.1); CREATININE 0.54 mg/dl (0.60-1.20); POTASSIUM 3.6 mmol/L (3.5-5.1)
[2016-05-06] MEDS: INSULIN ASPART 100 UNITS/ML 3 ML PEN SC SCH ×4 (07:00→21:01)
[2016-05-06] MEDS: SENNA 8.6 MG TAB PO SCH (09:00)
[2016-05-06] MEDS: BUDESONIDE/FORMOTEROL FUMARATE 160/4.5 60 PUFFS/INHALER INH SCH ×2 (09:17→20:32)
[2016-05-06] MEDS: METOPROLOL TARTRATE 25 MG TAB PO SCH ×2 (09:18→20:32)
[2016-05-06] MEDS: ESCITALOPRAM OXALATE 10 MG TAB PO SCH (09:18)
[2016-05-06] MEDS: POTASSIUM CHLORIDE 10 MEQ TABCR PO SCH (09:18)
[2016-05-06] MEDS: AMLODIPINE BESYLATE 5 MG TAB PO SCH (09:18)
[2016-05-06] MEDS: CLOPIDOGREL BISULFATE 75 MG TAB PO SCH (09:18)
[2016-05-06] MEDS: GABAPENTIN 300 MG CAP PO SCH ×3 (09:19→20:33)
[2016-05-06] MEDS: BUMETANIDE 1 MG TAB PO SCH (09:20)
[2016-05-06] MEDS: ROPINIROLE HCL 0.25 MG TAB PO SCH (09:20)
[2016-05-06] MEDS: ATORVASTATIN 40 MG TAB PO SCH (09:20)
[2016-05-06] MEDS: MAGNESIUM OXIDE 400 MG TAB PO SCH ×2 (09:21→20:33)
[2016-05-06] MEDS: PANTOprazole INJ 40 MG in SYRINGE 0 ML IV SCH (09:21)
[2016-05-06] MEDS: SODIUM CHLORIDE 0.65% NA SOLN 45 ML (OCEAN) NAE SCH ×2 (09:22→20:32)
[2016-05-06] MEDS: NSS + 20MEQ KCL 1000ML 1,000 ML IV SCH (12:40)
--- NOTE | 2016-05-06 13:36 | DIAGNOSTIC IMAGING REPORT ---
CHEST ONE VIEW PORTABLE CLINICAL HISTORY: PORTABLE CHEST X-RAY. . PN HYPOXIA hypoxia COMPARISON STUDY: 05/04/2016 FINDINGS: Findings of progressive congestive failure versus pulmonary edema. Permanent unipolar cardiac pacemaker. IMPRESSION: Progressive pulmonary edema and/or progressive congestive failure. Electronically signed by: Kelvin Stanley M.D. 05/06/2016 1:34 PM Dictated Date/Time: 05/06/2016 1:34 PM
[2016-05-06] MEDS: WARFARIN SOD 3 MG TAB PO SCH (15:17)
[2016-05-06] MEDS ORDERED: NURSING VERBAL MED ORDER ONE (15:30)
[2016-05-06] MEDS: DIGOXIN IV 125 MCG in SYRINGE 9.5 ML IV SCH (15:32)
--- NOTE | 2016-05-06 16:26 | Family Medicine Progress Note ---
Progress Note Date of Service May 06, 2016. Subjective Pt evaluation today including: conversation w/ patient, physical exam, lab review Pain: denies Voiding: incontinence Patient was seen at the bedside. No acute events overnight. Patient was more alert and awake today. Denies any abdominal pain today. She states that she is having the left leg pain for past 2-3yrs. Denies any SOB, chest pain, palpitation, nausea, vomiting, headache, or any other additional complaints. Constitutional: No fever Respiratory: No cough, No dyspnea on exertion, No shortness of breath, No wheezing Cardiovascular: No chest pain, No edema Abdomen: No constipation, No diarrhea, No nausea, No pain, No vomiting Musculoskeletal: No muscle pain Female : No dysuria Neurologic: + problem reported (Chronic pain on the left leg) Skin: No rash Medications Current Inpatient Medications Medications (Trade) Dose Ordered Sig/Tariq Route Start Time Stop Time Status Last Admin Dose Admin Insulin Glargine (Lantus Solostar Pen) 14 unit QPM SC 05/04/16 21:00 06/03/16 20:59 05/05/16 21:23 14 UNIT Latanoprost (Xalatan Oph Soln) 1 drops HS OPB 05/04/16 21:00 06/03/16 20:59 05/05/16 21:16 1 DROPS Sodium Chloride (Eddy Nasal [place]) 2 sprays BID ADELA 05/04/16 09:00 06/03/16 08:59 05/06/16 09:22 2 SPRAYS Warfarin Sodium (Coumadin Tab) 3 mg SuTuThSa@1600 PO 05/04/16 16:00 06/03/16 15:59 Warfarin Sodium 4 mg 4 mg MoWeFr@1600 PO 05/05/16 16:00 06/04/16 15:59 05/05/16 16:29 4 MG Digoxin/Syringe (Digoxin IV/ Syringe) 10 ml @ 2 mls/min DAILY@16 IV 05/04/16 16:00 06/03/16 15:59 05/06/16 15:32 2 MLS/MIN Ondansetron HCl 4 mg 4 mg Q6H PRN IV 05/04/16 03:00 06/03/16 02:59 Acetaminophen (Ofirmev Iv) 100 ml @ 400 mls/hr Q8H PRN IV 05/04/16 03:00 06/03/16 02:59 Glucose (Glucose 40% Gel) UD PRN PO 05/04/16 03:00 06/03/16 02:59 Glucose (Glucose Chew Tab) 1 tabs UD PRN PO 05/04/16 03:00 06/03/16 02:59 Dextrose (Dextrose 50% 50ML Syringe) 50 ml UD PRN IV 05/04/16 03:00 06/03/16 02:59 05/05/16 06:07 50 ML Glucagon 1 mg 1 mg UD PRN SQ 05/04/16 03:00 06/03/16 02:59 Pantoprazole Sodium/Syringe (Protonix Inj/ Syringe) 10 ml @ 5 mls/min DAILY@11 IV 05/04/16 11:00 06/03/16 10:59 05/06/16 09:21 5 MLS/MIN Vancomycin HCl 1 ea 1 ea DAILY PRN N/A 05/04/16 03:11 06/03/16 03:10 Aztreonam 1000 mg/ Dextrose 110 ml @ 100 mls/hr Q8H IV 05/04/16 08:00 05/11/16 07:59 05/06/16 15:32 100 MLS/HR Clindamycin Phosphate/Dextrose (Cleocin Iv/ Dextrose Add-[place] 100ML) 106 ml @ 100 mls/hr Q8H IV 05/04/16 06:00 05/11/16 05:59 05/06/16 13:28 100 MLS/HR Insulin Aspart (novoLOG ASPART) SLIDING SCALE If C... ACHS SC 05/05/16 16:15 06/04/16 16:14 05/06/16 11:58 3 UNITS Amlodipine Besylate (Norvasc Tab) 5 mg DAILY PO 05/06/16 09:00 06/05/16 08:59 05/06/16 09:18 5 MG Atorvastatin Calcium (Lipitor Tab) 40 mg DAILY PO 05/06/16 09:00 06/05/16 08:59 05/06/16 09:20 40 MG Budesonide/ Formoterol Fumarate (Symbicort 160/ 4.5 Inh) 2 puffs BID INH 05/05/16 21:00 06/04/16 20:59 05/06/16 09:17 2 PUFFS Clopidogrel Bisulfate (plAVix TAB) 75 mg DAILY PO 05/06/16 09:00 06/05/16 08:59 05/06/16 09:18 75 MG Escitalopram Oxalate (Lexapro Tab) 10 mg DAILY PO 05/06/16 09:00 06/05/16 08:59 05/06/16 09:18 10 MG Gabapentin (Neurontin Cap) 900 mg TID PO 05/05/16 14:00 06/04/16 13:59 05/06/16 13:28 900 MG Levothyroxine Sodium (Synthroid Tab) 25 mcg Q2D@0600 PO 05/06/16 06:00 06/05/16 05:59 05/06/16 06:10 25 MCG Magnesium Oxide (Mag-Ox Tab) 400 mg BID PO 05/05/16 21:00 06/04/16 20:59 05/06/16 09:21 400 MG Metoprolol Tartrate (Lopressor Tab) 25 mg BID PO 05/05/16 21:00 06/04/16 20:59 05/06/16 09:18 25 MG Ropinirole HCl (Requip Tab) 0.5 mg DAILY PO 05/06/16 09:00 06/05/16 08:59 05/06/16 09:20 0.5 MG Senna (Senokot Tab) 8.6 mg DAILY PO 05/06/16 09:00 06/05/16 08:59 Alendronate Sodium (Fosamax Tab) 70 mg Mo@0700 PO 05/12/16 07:00 06/11/16 06:59 Miscellaneous Information (Order Awaiting Action) 1 ea QS N/A 05/05/16 14:00 06/04/16 13:59 Potassium Chloride (Klor-Con M10) 10 meq DAILY PO 05/06/16 09:00 06/05/16 08:59 05/06/16 09:18 10 MEQ Albuterol Sulfate 2 mg 2 mg Q4H PRN PO 05/05/16 12:30 06/04/16 12:29 05/06/16 09:21 2 MG Vancomycin HCl/ Sodium Chloride (Vancomycin Inj/ Nss 250ml) 272 ml @ 125 mls/hr Q12H IV 05/06/16 04:00 05/10/16 23:59 05/06/16 15:32 125 MLS/HR Bumetanide (Bumex Tab) 1.5 mg QAM PO 05/07/16 09:00 06/06/16 08:59 Bumetanide (Bumex Tab) 2 mg DAILY@1700 PO 05/06/16 17:00 06/05/16 16:59 05/06/16 15:33 2 MG Objective Vital Signs Date Time Temp Pulse Resp B/P Pulse Ox O2 Delivery O2 Flow Rate FiO2 05/06/16 15:32 77 05/06/16 15:18 36.7 66 22 138/65 91 Nasal Cannula 3.0 05/06/16 12:00 Nasal Cannula 3.0 05/06/16 11:07 36.7 77 20 113/67 92 Nasal Cannula 3.0 05/06/16 08:00 Nasal Cannula 3.0 05/06/16 07:00 37.2 62 20 109/67 91 Nasal Cannula 2.0 05/06/16 04:00 93 Nasal Cannula 3.0 05/06/16 03:30 36.4 60 21 116/58 93 Nasal Cannula 3.0 05/06/16 00:01 91 Nasal Cannula 3.0 05/05/16 23:24 36.7 66 22 124/64 91 Nasal Cannula 3.0 05/05/16 19:30 93 Nasal Cannula 3.0 05/05/16 19:25 36.7 95 24 134/66 93 Nasal Cannula 3.0 05/05/16 16:24 72 05/05/16 16:20 37.2 87 20 128/66 93 Nasal Cannula 3.0 Physical Exam General Appearance: WD/WN, no apparent distress Neck: supple, trachea midline Respiratory/Chest: chest non-tender, no respiratory distress, no accessory muscle use, + decreased breath sounds Cardiovascular: regular rate, rhythm, + systolic murmur Abdomen: normal bowel sounds, non tender, soft Extremities: + pedal edema (noted on the left leg), + pertinent finding (very tender to touch on LLE) Neurologic/Psychiatric: alert, normal mood/affect Skin: normal color, warm/dry Laboratory Results Results Past 24 Hours Test 05/05/16 16:32 05/05/16 20:21 05/06/16 05:15 05/06/16 05:25 Range/Units Bedside Glucose 149 179 70-90 mg/dl White Blood Count 11.12 4.8-10.8 K/uL Red Blood Count 3.62 4.2-5.4 M/uL Hemoglobin 9.6 12.0-16.0 g/dL Hematocrit 30.6 37-47 % Mean Corpuscular Volume 84.5 80-100 fL Mean Corpuscular Hemoglobin 26.5 25-34 pg Mean Corpuscular Hemoglobin Concent 31.4 32-36 g/dl Platelet Count 176 130-400 K/uL Mean Platelet Volume 10.0 7.4-10.4 fL Neutrophils (%) (Auto) 82.1 % Lymphocytes (%) (Auto) 8.3 % Monocytes (%) (Auto) 7.7 % Eosinophils (%) (Auto) 1.3 % Basophils (%) (Auto) 0.2 % Neutrophils # (Auto) 9.14 1.4-6.5 K/uL Lymphocytes # (Auto) 0.92 1.2-3.4 K/uL Monocytes # (Auto) 0.86 0.11-0.59 K/uL Eosinophils # (Auto) 0.14 0-0.5 K/uL Basophils # (Auto) 0.02 0-0.2 K/uL RDW Standard Deviation 52.6 36.4-46.3 fL RDW Coefficient of Variation 17.1 11.5-14.5 % Immature Granulocyte % (Auto) 0.4 % Immature Granulocyte # (Auto) 0.04 0.00-0.02 K/uL Prothrombin Time 41.7 9.0-12.0 SECONDS Prothromb Time International Ratio 3.7 0.9-1.1 Activated Partial Thromboplast Time 49.7 21.0-31.0 SECONDS Partial Thromboplastin Ratio 1.9 Sodium Level 143 136-145 mmol/L Potassium Level 3.6 3.5-5.1 mmol/L Chloride Level 106 98-107 mmol/L Carbon Dioxide Level 29 21-32 mmol/L Anion Gap 8.0 3-11 mmol/L Blood Urea Nitrogen 13 7-18 mg/dl Creatinine 0.54 0.60-1.20 mg/dl Est Creatinine Clear Calc Drug Dose 85.8 ml/min Estimated GFR () 98.3 Estimated GFR (Non- 84.8 BUN/Creatinine Ratio 23.7 10-20 Random Glucose 132 70-99 mg/dl Calcium Level 7.9 8.5-10.1 mg/dl Magnesium Level 2.0 1.8-2.4 mg/dl Test 05/06/16 06:40 05/06/16 11:10 Range/Units Bedside Glucose 138 225 70-90 mg/dl Assessment and Plan Patient is an 86 year old Female that presented to the hospital from SNF with fevers, shortness of breath, and cough. Resume diet and all the home medications. IVF was discontinued today. D/c IV Vanco, Clindamycin and Aztreonam. Start on IV Rocephin and Zithromax. 1. Acute Hypoxic Respiratory Failure 2/2 Pneumonia - CXR in ED: RLL and RML pneumonia with scattered infiltrates of Left Lung - D/c IV Vancomycin, Clindamycin, and Aztreonam (given negative nasal swab for MRSA and negative BCx to date) on 05/06 - Currently on 1L of oxygen and maintaining O2 in 90s, continue to wean oxygen - Currently afebrile (39.2 Rectal Temp in the ED) - Influenza negative, UA negative, Nasal swab for MRSA negative - Blood Cx (05/04): no growth to date - Start Day#1 IV Rocephin 1g (4 day course) and Day#1 PO Zithromax 500mg and then 250mg BID (5 day course) 2. Altered Mental Status (resolved) - 2/2 Hypoxia and Fevers - Patient was alert and awake this morning. - Started her on diet today and resumed all the home medications. 3. Diabetes - Lantus 14units qPM - Insulin Novolog sliding scale - Continue to monitor glucose 4. Congested heart failure with preserved EF - Echo was performed on 12/23/2013 and showed EF 65-70% - CXR (05/06): Progressive pulmonary edema and/or progressive congestive failure. - D/c IVF given worsening CHF - Given 2mg of Bumex today - Continue Bumex 1.5mg daily - CXR tomorrow morning - Monitor I/O and weight 5. COPD - Continue Symbicort 2 Puff BID - Continue Ventolin syrup 2mg q4 prn for wheezing 6. Atrial Fibrillation - Continue Metoprolol 25mg BID - Continue Digoxin 125mcg IV - Hold Warfarin 3mg/4mg (alternating days) given high INR (3.7) - Continue to monitor INR 7. Hypertension - Continue Norvasc 5mg PO Daily 8. Hyperlipidemia - Continue Lipitor 40mg PO Daily 9. Antiplatelet Therapy (Stroke?) - Continue Plavix 75mg Tab Once Daily 10. Hyperthyroidism - Continue Levothyroxine 25 mcg po q2D 11. Neuropathic pain - Continue gabapentin 900mg TID 12. Depression - Continue Lexapro 10mg daily 13. DVT Prophylaxis - Coumadin Resident Physician Supervision Note: I interviewed and examined the patient. Discussed with Dr. Hicks and agree with findings and plan as documented in the note. Any exceptions or clarifications are listed here: Upon my examination, the patient was upright and eating lunch. She looked much better in general compared to my examination yesterday. She denied any chest pain or shortness of breath. She denied any cough. Agree with discontinuation of Vancomycin, Clindamycin, and Aztreonam, especially in the setting of clinical improvement, negative MRSA swab, and negative blood cultures. Agree with transition to Rocephin and azithromycin. A follow-up chest x-ray this afternoon demonstrated some increasing pulmonary edema. As such, we'll discontinue IV fluids and increase dose of p.m. Bumex. We'll repeat chest x-ray in morning and continue to monitor her fluid status. Documented By: Nahid Valdes
[2016-05-06] MEDS ORDERED: BUMETANIDE 1 MG TAB PO SCH (17:00)
[2016-05-06] MEDS: CEFTRIAXONE SOD INJ 1 GM in DEXTROSE 5% ADD-VANTAGE 50ML 50 ML IV SCH (17:00)
[2016-05-06] MEDS ORDERED: PHARMACY GLYCEMIC MGMT CONSULT STA (17:16)
[2016-05-06] MEDS ORDERED: AZITHROMYCIN 500 MG / D5W 250 ML IV ONE ×2 (18:00)
[2016-05-06] MEDS ORDERED: PHARMACY GLYCEMIC MGMT CONSULT PRN (18:15)
[2016-05-06] MEDS: LATANOPROST 0.005% OP SOLN 2.5 ML BTL OPB SCH (20:32)
[2016-05-06] MEDS: INSULIN GLARGINE SOLOSTAR 100 UNITS/ML 3 ML PEN SC SCH (20:40)
[2016-05-07] VITALS (9 sets, daily range): BP systolic 105–131; BP diastolic 46–79; PULSE 59–68; TEMP 36.3–37; O2SAT 90–96
[2016-05-07] MEDS ORDERED: VANCOMYCIN TROUGH SCH (03:30)
[2016-05-07 06:38] LABS: HEMATOCRIT 31.8 % (37-47); MEAN CORPUSCULAR HEMOGLOBIN 26.7 pg (25-34); MEAN CORPUSCULAR HGB CONC 31.4 g/dl (32-36); MEAN PLATELET VOLUME 10.4 fL (7.4-10.4); PLATELET COUNT 178 K/uL (130-400); RED BLOOD COUNT 3.74 M/uL (4.2-5.4); WHITE BLOOD COUNT 7.16 K/uL (4.8-10.8)
[2016-05-07 06:54] LABS: PROTHROMBIN TIME (PATIENT) 51.1 SECONDS (9.0-12.0)
[2016-05-07 07:00] LABS: INR 4.5 (0.9-1.1)
[2016-05-07] MEDS: INSULIN ASPART 100 UNITS/ML 3 ML PEN SC SCH ×5 (07:00→20:41)
--- NOTE | 2016-05-07 07:06 | DIAGNOSTIC IMAGING REPORT ---
CHEST ONE VIEW PORTABLE CLINICAL HISTORY: Eval of CHF dyspnea COMPARISON STUDY: 05/06/2016 FINDINGS: Congestive failure versus pulmonary edema. Moderate stable cardiomegaly. Small left pleural effusion. No change compared to the prior exam. IMPRESSION: Congestive failure/pulmonary edema. No change from the prior exam. Electronically signed by: Kelvin Stanley M.D. 05/07/2016 7:04 AM Dictated Date/Time: 05/07/2016 7:03 AM
[2016-05-07 07:09] LABS: BUN/CREATININE RATIO 22.5 (10-20); CALCIUM 8.2 mg/dl (8.5-10.1); CREATININE 0.52 mg/dl (0.60-1.20); POTASSIUM 3.5 mmol/L (3.5-5.1)
[2016-05-07] MEDS: AMLODIPINE BESYLATE 5 MG TAB PO SCH (07:59)
[2016-05-07] MEDS: ATORVASTATIN 40 MG TAB PO SCH (07:59)
[2016-05-07] MEDS: CLOPIDOGREL BISULFATE 75 MG TAB PO SCH (07:59)
[2016-05-07] MEDS: MAGNESIUM OXIDE 400 MG TAB PO SCH ×2 (07:59→20:44)
[2016-05-07] MEDS: ESCITALOPRAM OXALATE 10 MG TAB PO SCH (08:00)
[2016-05-07] MEDS: GABAPENTIN 300 MG CAP PO SCH ×3 (08:00→20:44)
[2016-05-07] MEDS: ROPINIROLE HCL 0.25 MG TAB PO SCH (08:02)
[2016-05-07] MEDS: SENNA 8.6 MG TAB PO SCH (08:02)
[2016-05-07] MEDS: POTASSIUM CHLORIDE 10 MEQ TABCR PO SCH (08:02)
[2016-05-07] MEDS: SODIUM CHLORIDE 0.65% NA SOLN 45 ML (OCEAN) NAE SCH ×2 (08:03→20:42)
[2016-05-07] MEDS: BUDESONIDE/FORMOTEROL FUMARATE 160/4.5 60 PUFFS/INHALER INH SCH ×2 (08:03→20:42)
[2016-05-07] MEDS: METOPROLOL TARTRATE 25 MG TAB PO SCH ×2 (08:03→20:43)
[2016-05-07] MEDS ORDERED: BUMETANIDE 1 MG TAB PO SCH (09:00)
--- NOTE | 2016-05-07 09:14 | Family Medicine Progress Note ---
Progress Note Date of Service May 07, 2016. Subjective Pt evaluation today including: conversation w/ patient, physical exam, lab review Pain: Denies Voiding: hamilton catheter in place Patient was seen at the bedside. Patient was alert and awake. She was eating her breakfast when i visited her room to examine her. Currently on 4L NC O2. Tolerating food well. Denies any chest pain, SOB, nausea, vomiting, abdominal pain or any other additional symptoms. Constitutional: No fever Respiratory: No cough, No dyspnea on exertion, No shortness of breath, No sputum, No wheezing Cardiovascular: No chest pain Abdomen: No constipation, No diarrhea, No nausea, No pain, No vomiting Musculoskeletal: No muscle pain Female : + incontinence Neurologic: + problem reported (neuropathic pain on the left leg) Skin: No rash Medications Current Inpatient Medications Medications (Trade) Dose Ordered Sig/Tariq Route Start Time Stop Time Status Last Admin Dose Admin Latanoprost (Xalatan Oph Soln) 1 drops HS OPB 05/04/16 21:00 06/03/16 20:59 05/06/16 20:32 1 DROPS Sodium Chloride ([place] Nasal [place]) 2 sprays BID ADELA 05/04/16 09:00 06/03/16 08:59 05/07/16 08:03 2 SPRAYS Warfarin Sodium (Coumadin Tab) 3 mg SuTuThSa@1600 PO 05/04/16 16:00 06/03/16 15:59 Future Hold Warfarin Sodium 4 mg 4 mg MoWeFr@1600 PO 05/05/16 16:00 06/04/16 15:59 Future Hold 05/05/16 16:29 4 MG Digoxin/Syringe (Digoxin IV/ Syringe) 10 ml @ 2 mls/min DAILY@16 IV 05/04/16 16:00 06/03/16 15:59 05/06/16 15:32 2 MLS/MIN Ondansetron HCl 4 mg 4 mg Q6H PRN IV 05/04/16 03:00 06/03/16 02:59 Acetaminophen (Ofirmev Iv) 100 ml @ 400 mls/hr Q8H PRN IV 05/04/16 03:00 06/03/16 02:59 Glucose (Glucose 40% Gel) UD PRN PO 05/04/16 03:00 06/03/16 02:59 Glucose (Glucose Chew Tab) 1 tabs UD PRN PO 05/04/16 03:00 06/03/16 02:59 Dextrose (Dextrose 50% 50ML Syringe) 50 ml UD PRN IV 05/04/16 03:00 06/03/16 02:59 05/05/16 06:07 50 ML Glucagon 1 mg 1 mg UD PRN SQ 05/04/16 03:00 06/03/16 02:59 Pantoprazole Sodium/Syringe (Protonix Inj/ Syringe) 10 ml @ 5 mls/min DAILY@11 IV 05/04/16 11:00 06/03/16 10:59 05/06/16 09:21 5 MLS/MIN Insulin Aspart (novoLOG ASPART) SLIDING SCALE If C... ACHS SC 05/05/16 16:15 06/04/16 16:14 05/07/16 08:16 8 UNITS Amlodipine Besylate (Norvasc Tab) 5 mg DAILY PO 05/06/16 09:00 06/05/16 08:59 05/07/16 07:59 5 MG Atorvastatin Calcium (Lipitor Tab) 40 mg DAILY PO 05/06/16 09:00 06/05/16 08:59 05/07/16 07:59 40 MG Budesonide/ Formoterol Fumarate (Symbicort 160/ 4.5 Inh) 2 puffs BID INH 05/05/16 21:00 06/04/16 20:59 05/07/16 08:03 2 PUFFS Clopidogrel Bisulfate (plAVix TAB) 75 mg DAILY PO 05/06/16 09:00 06/05/16 08:59 05/07/16 07:59 75 MG Escitalopram Oxalate (Lexapro Tab) 10 mg DAILY PO 05/06/16 09:00 06/05/16 08:59 05/07/16 08:00 10 MG Gabapentin (Neurontin Cap) 900 mg TID PO 05/05/16 14:00 06/04/16 13:59 05/07/16 08:00 900 MG Levothyroxine Sodium (Synthroid Tab) 25 mcg Q2D@0600 PO 05/06/16 06:00 06/05/16 05:59 05/06/16 06:10 25 MCG Magnesium Oxide (Mag-Ox Tab) 400 mg BID PO 05/05/16 21:00 06/04/16 20:59 05/07/16 07:59 400 MG Metoprolol Tartrate (Lopressor Tab) 25 mg BID PO 05/05/16 21:00 06/04/16 20:59 05/07/16 08:03 25 MG Ropinirole HCl (Requip Tab) 0.5 mg DAILY PO 05/06/16 09:00 06/05/16 08:59 05/07/16 08:02 0.5 MG Senna (Senokot Tab) 8.6 mg DAILY PO 05/06/16 09:00 06/05/16 08:59 05/07/16 08:02 8.6 MG Alendronate Sodium (Fosamax Tab) 70 mg Mo@0700 PO 05/12/16 07:00 06/11/16 06:59 Miscellaneous Information (Order Awaiting Action) 1 ea QS N/A 05/05/16 14:00 06/04/16 13:59 Potassium Chloride (Klor-Con M10) 10 meq DAILY PO 05/06/16 09:00 06/05/16 08:59 05/07/16 08:02 10 MEQ Albuterol Sulfate (Ventolin Syrup) 2 mg Q4H PRN PO 05/05/16 12:30 06/04/16 12:29 05/06/16 09:21 2 MG Bumetanide (Bumex Tab) 1.5 mg QAM PO 05/07/16 09:00 06/06/16 08:59 05/07/16 08:01 1.5 MG Bumetanide 2 mg 2 mg DAILY@1700 PO 05/06/16 17:00 06/05/16 16:59 05/06/16 15:33 2 MG Ceftriaxone Sodium 1 gm/ Dextrose 50 ml @ 120 mls/hr DAILY@1700 IV 05/06/16 17:00 05/09/16 17:24 05/06/16 17:00 120 MLS/HR Azithromycin/ Dextrose (Zithromax IV/D5 250ml) 252.5 ml @ 126.25 mls/ hr DAILY@1800 IV 05/07/16 18:00 05/10/16 19:59 Miscellaneous Information (Consult Glycemic Management Pharmacy) 1 ea UD PRN N/A 05/06/16 18:15 06/05/16 18:14 Insulin Glargine (Lantus Solostar Pen) 18 unit QPM SC 05/06/16 21:00 06/05/16 20:59 05/06/16 20:40 18 UNIT Objective Vital Signs Date Time Temp Pulse Resp B/P Pulse Ox O2 Delivery O2 Flow Rate FiO2 05/07/16 08:00 96 Nasal Cannula 4.0 05/07/16 07:37 36.4 68 20 131/64 96 Nasal Cannula 4.0 05/07/16 04:00 Nasal Cannula 3.0 05/07/16 03:45 36.7 65 18 106/56 95 Nasal Cannula 4.0 05/07/16 00:04 36.8 59 20 115/63 93 Nasal Cannula 4.0 05/07/16 00:00 Nasal Cannula 3.0 05/06/16 20:03 36.6 69 24 128/69 95 Nasal Cannula 4.0 05/06/16 20:00 Nasal Cannula 4.0 05/06/16 16:00 Nasal Cannula 3.0 05/06/16 15:32 77 05/06/16 15:18 36.7 66 22 138/65 91 Nasal Cannula 3.0 05/06/16 12:00 Nasal Cannula 3.0 05/06/16 11:07 36.7 77 20 113/67 92 Nasal Cannula 3.0 Physical Exam General Appearance: WD/WN, no apparent distress Neck: supple, trachea midline Respiratory/Chest: chest non-tender, no respiratory distress, no accessory muscle use, + decreased breath sounds, + crackles Cardiovascular: regular rate, rhythm, + systolic murmur Abdomen: normal bowel sounds, non tender, soft Extremities: + pedal edema (trace of edema on the left leg), + 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) Neurologic/Psychiatric: alert, normal mood/affect Skin: normal color, warm/dry Laboratory Results Results Past 24 Hours Test 05/06/16 11:10 05/06/16 16:26 05/06/16 20:53 05/07/16 06:20 Range/Units Bedside Glucose 225 253 288 70-90 mg/dl White Blood Count 7.16 4.8-10.8 K/uL Red Blood Count 3.74 4.2-5.4 M/uL Hemoglobin 10.0 12.0-16.0 g/dL Hematocrit 31.8 37-47 % Mean Corpuscular Volume 85.0 80-100 fL Mean Corpuscular Hemoglobin 26.7 25-34 pg Mean Corpuscular Hemoglobin Concent 31.4 32-36 g/dl RDW Standard Deviation 53.5 36.4-46.3 fL RDW Coefficient of Variation 17.1 11.5-14.5 % Platelet Count 178 130-400 K/uL Mean Platelet Volume 10.4 7.4-10.4 fL Erythrocyte Sedimentation Rate 82 0-21 mm/hr Prothrombin Time 51.1 9.0-12.0 SECONDS Prothromb Time International Ratio 4.5 0.9-1.1 Activated Partial Thromboplast Time 51.4 21.0-31.0 SECONDS Partial Thromboplastin Ratio 2.0 Sodium Level 146 136-145 mmol/L Potassium Level 3.5 3.5-5.1 mmol/L Chloride Level 107 98-107 mmol/L Carbon Dioxide Level 33 21-32 mmol/L Anion Gap 6.0 3-11 mmol/L Blood Urea Nitrogen 12 7-18 mg/dl Creatinine 0.52 0.60-1.20 mg/dl Est Creatinine Clear Calc Drug Dose 89.4 ml/min Estimated GFR () 99.6 Estimated GFR (Non- 85.9 BUN/Creatinine Ratio 22.5 10-20 Random Glucose 140 70-99 mg/dl Calcium Level 8.2 8.5-10.1 mg/dl Test 05/07/16 06:27 Range/Units Bedside Glucose 133 70-90 mg/dl Assessment and Plan Patient is an 86 year old Female that presented to the hospital from SNF with fevers, shortness of breath, and cough. Resume diet and all the home medications. IVF was discontinued today. Hamilton cath is placed today to accurately monitor her output. Increased Bumex to 2mg BID. 1. Acute Hypoxic Respiratory Failure 04/10 Pneumonia - CXR in ED: RLL and RML pneumonia with scattered infiltrates of Left Lung - D/c IV Vancomycin, Clindamycin, and Aztreonam (given negative nasal swab for MRSA and negative BCx to date) on 05/06 - Currently requiring oxygen supplement, continue to wean off as tolerated - Currently afebrile (39.2 Rectal Temp in the ED) - Influenza negative, UA negative, Nasal swab for MRSA negative - Blood Cx (05/04): no growth to date - Start Day#2 IV Rocephin 1g (4 day course) and IV Zithromax 250mg BID (5 day course) 2. Altered Mental Status (resolved) - 2/2 Hypoxia and Fevers - Patient was alert and awake this morning. - Started her on diet and resumed all the home medications. 3. Elevated INR - Patient has elevated INR, 3.7-->4.5 - Continue to hold Coumadin - Continue to monitor INR daily 4. Diabetes - Lantus 14units qPM - Insulin Novolog sliding scale - Continue to monitor glucose 5. Congested heart failure with preserved EF - Echo was performed on 12/23/2013 and showed EF 65-70% - CXR (05/06): Progressive pulmonary edema and/or progressive congestive failure. - D/c IVF (05/06) given worsening CHF - CXR (05/07): No change from previous CXR - Increased Bumex to 2mg BID - CXR tomorrow morning - Hamilton cath in place - Monitor I/O and weight 6. COPD - Continue Symbicort 2 Puff BID - Continue Ventolin syrup 2mg q4 prn for wheezing 7. Atrial Fibrillation - Continue Metoprolol 25mg BID - Continue Digoxin 125mcg IV - Hold Warfarin 3mg/4mg (alternating days) given high INR (3.7) - Continue to monitor INR 8. Hypertension - Continue Norvasc 5mg PO Daily 9. Hyperlipidemia - Continue Lipitor 40mg PO Daily 10. Antiplatelet Therapy (Stroke?) - Continue Plavix 75mg Tab Once Daily 11. Hyperthyroidism - Continue Levothyroxine 25 mcg po q2D 12. Neuropathic pain - Continue gabapentin 900mg TID 13. Depression - Continue Lexapro 10mg daily 14. DVT Prophylaxis - Coumadin on Hold given elevated INR Resident Physician Supervision Note: I was present with Dr. Hicks during the history and exam. I discussed the case with the resident and agree with the findings and plan as documented in the note. Any exceptions or clarifications are listed here: The patient was without complaint today; her mental status has returned to baseline. However, she has subtle exam findings c/w slight fluid overload (crackles, increasing LE edema, and slight increase in supplemental oxygen needs); agree with increased diuretics with follow up chest x-ray in the AM. Given her incontinence, recommended hamilton cath so that we can accurately monitor her output and avoid skin breakdown. Documented By: Nahid Valdes
[2016-05-07] MEDS ORDERED: BUMETANIDE 1 MG TAB PO ONE (10:00)
[2016-05-07] MEDS: PANTOprazole INJ 40 MG in SYRINGE 0 ML IV SCH (10:16)
--- NOTE | 2016-05-07 13:37 | Pharmacy Progress Note ---
Glycemic Control Intl Consult Date of Service May 07, 2016. Scope Glycemic Pharmacist consulted by Dr Hicks on 05/06/16 for glycemic control and to write orders per [facility] inpatient glycemic control protocol Objective Weight (Kilograms): 96.900 Accuchecks BSG (last 24hrs): Test 05/06/16 16:26 05/06/16 20:53 05/07/16 06:20 05/07/16 06:27 Bedside Glucose 253 mg/dl (70-90) 288 mg/dl (70-90) 133 mg/dl (70-90) Random Glucose 140 mg/dl (70-99) Test 05/07/16 11:33 Bedside Glucose 190 mg/dl (70-90) Laboratory Data (last 24hrs) Test 05/07/16 06:20 Anion Gap 6.0 mmol/L BUN/Creatinine Ratio 22.5 Blood Urea Nitrogen 12 mg/dl Creatinine 0.52 mg/dl Potassium Level 3.5 mmol/L Sodium Level 146 mmol/L White Blood Count 7.16 K/uL Recent Pertinent Medications Outpatient Anti-diabetic Regimen: * NovoLog 4 units SQ AC * NovoLog sliding scale * Lantus 24 units SQ q PM * A1c = 7.6 % 03/30/16 The patient is currently receiving: * Basal insulin: Lantus 18 units every 24 hours * Correctional Insulin: Novolog Correction per scale ACHS Goal Range: Low 100 mg/dL - High 150 mg/dL Correction Factor: 25 mg/dL/unit * Prandial insulin: Per carb ratio of 1 unit per 9 grams CHO consumed Risk Factors for Insulin Resistance: * Infection: * Diet: Assessment & Plan ASSESSMENT: * ADA & AACE recommend a goal blood sugar range 140-180 mg/dl for the majority of critically ill & non-critically ill patients. However, more stringent targets may be selected in individual cases. 05/07/16 * 86 y/o type 2 diabetic - consulted to managed BSGs secondary to hyperglycemia * BSGs rise throughout the day indicating need for prandial coverage * NovoLog parameters tightened last evening based on weight * Lantus increased by ~25% as diet has been resumed * will not likely require home dosing as it is disproportional to home NovoLog PLAN FOR INPATIENT GLYCEMIC CONTROL: * Lantus 18 units SQ q PM * NovoLog SQ AC and HS * Correction factor 25mg/dL/unit * Carb ratio: 1unit per 9g of CHO consumed * Goal range 100-150mg/dL * A1c - current * added to discharge instructions * Please note that the plan above was derived based on current level of insulin resistance and hospital stress. These recommendations are appropriate for inpatient admission only. Plan of care upon discharge will need to be reassessed to avoid potential outpatient hypo/hyperglycemia. Thank you.
[2016-05-07] MEDS: CEFTRIAXONE SOD INJ 1 GM in DEXTROSE 5% ADD-VANTAGE 50ML 50 ML IV SCH (16:11)
[2016-05-07] MEDS: DIGOXIN IV 125 MCG in SYRINGE 9.5 ML IV SCH (16:11)
[2016-05-07] MEDS: BUMETANIDE 1 MG TAB PO SCH (16:13)
[2016-05-07] MEDS: AZITHROMYCIN 250 MG / D5W 250 ML IV SCH ×2 (17:19)
[2016-05-07] MEDS: INSULIN GLARGINE SOLOSTAR 100 UNITS/ML 3 ML PEN SC SCH (20:42)
[2016-05-07] MEDS: LATANOPROST 0.005% OP SOLN 2.5 ML BTL OPB SCH (20:43)
[2016-05-08] VITALS (9 sets, daily range): BP systolic 101–144; BP diastolic 42–74; PULSE 63–77; TEMP 36.5–36.8; O2SAT 95–98
[2016-05-08] MEDS: LEVOTHYROXINE 25 MCG TAB PO SCH (05:38)
[2016-05-08 06:15] LABS: INR 2.1 (0.9-1.1); PARTIAL THROMBOPLASTIN RATIO 1.6; PROTHROMBIN TIME (PATIENT) 22.9 SECONDS (9.0-12.0)
[2016-05-08 06:30] LABS: BUN/CREATININE RATIO 24.6 (10-20); CALCIUM 8.1 mg/dl (8.5-10.1); CREATININE 0.52 mg/dl (0.60-1.20); POTASSIUM 3.4 mmol/L (3.5-5.1)
[2016-05-08 06:44] LABS: HEMATOCRIT 33.8 % (37-47); MEAN CELL VOLUME 85.8 fL (80-100); MEAN CORPUSCULAR HEMOGLOBIN 26.6 pg (25-34); MEAN CORPUSCULAR HGB CONC 31.1 g/dl (32-36); MEAN PLATELET VOLUME 10.2 fL (7.4-10.4); PLATELET COUNT 203 K/uL (130-400); RED BLOOD COUNT 3.94 M/uL (4.2-5.4); WHITE BLOOD COUNT 7.57 K/uL (4.8-10.8)
--- NOTE | 2016-05-08 07:10 | DIAGNOSTIC IMAGING REPORT ---
CHEST ONE VIEW PORTABLE CLINICAL HISTORY: worse ing CHF dyspnea COMPARISON STUDY: 05/07/2016 FINDINGS: Improving components of congestive failure. Bilateral pleural effusions and basilar consolidative change prepped minimally progressive. IMPRESSION: 1. Mild congestive failure improvement. 2. Slight increase in density both lung bases possibly related to pleural effusion Electronically signed by: Kelvin Stanley M.D. 05/08/2016 7:09 AM Dictated Date/Time: 05/08/2016 7:07 AM
[2016-05-08] MEDS: BUMETANIDE 1 MG TAB PO SCH ×2 (07:24→17:06)
[2016-05-08] MEDS: AMLODIPINE BESYLATE 5 MG TAB PO SCH (07:25)
[2016-05-08] MEDS: GABAPENTIN 300 MG CAP PO SCH ×3 (07:25→20:22)
[2016-05-08] MEDS: ATORVASTATIN 40 MG TAB PO SCH (07:25)
[2016-05-08] MEDS: ESCITALOPRAM OXALATE 10 MG TAB PO SCH (07:26)
[2016-05-08] MEDS: SENNA 8.6 MG TAB PO SCH (07:26)
[2016-05-08] MEDS: CLOPIDOGREL BISULFATE 75 MG TAB PO SCH (07:26)
[2016-05-08] MEDS: METOPROLOL TARTRATE 25 MG TAB PO SCH ×2 (07:27→20:23)
[2016-05-08] MEDS: MAGNESIUM OXIDE 400 MG TAB PO SCH ×2 (07:27→20:22)
[2016-05-08] MEDS: POTASSIUM CHLORIDE 10 MEQ TABCR PO SCH (07:28)
[2016-05-08] MEDS: ROPINIROLE HCL 0.25 MG TAB PO SCH (07:28)
[2016-05-08] MEDS: SODIUM CHLORIDE 0.65% NA SOLN 45 ML (OCEAN) NAE SCH ×2 (07:29→20:21)
[2016-05-08] MEDS: BUDESONIDE/FORMOTEROL FUMARATE 160/4.5 60 PUFFS/INHALER INH SCH ×2 (07:29→20:21)
[2016-05-08] MEDS: INSULIN ASPART 100 UNITS/ML 3 ML PEN SC SCH ×4 (08:00→20:30)
[2016-05-08] MEDS: PANTOprazole SOD 40 MG TAB PO SCH (10:54)
--- NOTE | 2016-05-08 11:28 | Pharmacy Progress Note ---
Glycemic Control: Progress Nt Date of Service May 08, 2016. Scope Glycemic Pharmacist consulted by Dr Hicks on 05/06/16 for glycemic control and to write orders per [facility] inpatient glycemic control protocol. Objective Accuchecks BSG (last 24hrs): Test 05/07/16 11:33 05/07/16 16:31 05/07/16 20:33 05/08/16 05:46 Bedside Glucose 190 mg/dl (70-90) 183 mg/dl (70-90) 181 mg/dl (70-90) Random Glucose 185 mg/dl (70-99) Test 05/08/16 06:58 Bedside Glucose 191 mg/dl (70-90) Laboratory Data (last 24hrs) Test 05/08/16 05:46 Anion Gap 6.0 mmol/L BUN/Creatinine Ratio 24.6 Blood Urea Nitrogen 13 mg/dl Creatinine 0.52 mg/dl Potassium Level 3.4 mmol/L Sodium Level 146 mmol/L White Blood Count 7.57 K/uL Recent Pertinent Medications Outpatient Anti-diabetic Regimen: * NovoLog 4 units SQ AC * NovoLog sliding scale * Lantus 24 units SQ q PM * A1c = 7.6 % 03/30/16 The patient is currently receiving: * Basal insulin: Lantus 18 units every 24 hours * Correctional Insulin: Novolog Correction per scale ACHS Goal Range: Low 100 mg/dL - High 150 mg/dL Correction Factor: 25 mg/dL/unit * Prandial insulin: Per carb ratio of 1 unit per 9 grams CHO consumed Risk Factors for Insulin Resistance: * Infection: * Diet: Assessment & Plan ASSESSMENT: * ADA & AACE recommend a goal blood sugar range 140-180 mg/dl for the majority of critically ill & non-critically ill patients. However, more stringent targets may be selected in individual cases. 05/07/16 * 86 y/o type 2 diabetic - consulted to managed BSGs secondary to hyperglycemia * BSGs rise throughout the day indicating need for prandial coverage * NovoLog parameters tightened last evening based on weight * Lantus increased by ~25% as diet has been resumed * will not likely require home dosing as it is disproportional to home NovoLog 05/08/16 * BSGs above goal yesterday with 42 units of insulin on board * At home, the patient takes 24 units of Lantus nightly * increase inpatient dose toward home dose since fasting BSG again elevated today * Rise in BSGs throughout the day and diet improved * will tighten NovoLog parameters as well PLAN FOR INPATIENT GLYCEMIC CONTROL: * Lantus 22 units SQ q PM * NovoLog SQ AC and HS * Correction factor 20 mg/dL/unit * Carb ratio: 1 unit per 8 g of CHO consumed * Goal range 110-150mg/dL * A1c - current * added to discharge instructions RECOMMENDATIONS FOR DISCHARGE: * Likely, Mr. Powell can continue his home regimen upon discharge * Please note that the plan above was derived based on current level of insulin resistance and hospital stress. These recommendations are appropriate for inpatient admission only. Plan of care upon discharge will need to be reassessed to avoid potential outpatient hypo/hyperglycemia. Thank you.
[2016-05-08] MEDS: DIGOXIN IV 125 MCG in SYRINGE 9.5 ML IV SCH (15:32)
[2016-05-08] MEDS: WARFARIN SOD 3 MG TAB PO SCH (15:33)
--- NOTE | 2016-05-08 16:19 | Family Medicine Progress Note ---
Progress Note Date of Service May 08, 2016. Subjective Pt evaluation today including: conversation w/ patient, physical exam, lab review Voiding: hamilton catheter in place Patient was seen at the bedside. Patient was sleeping when I entered the room. She woke up upon calling her name. Currently on 4L NC O2. Tolerating food well. Denies any chest pain, SOB, nausea, vomiting, abdominal pain or any other additional symptoms. Constitutional: No fever Respiratory: No cough, No dyspnea on exertion, No shortness of breath, No sputum, No wheezing Cardiovascular: No chest pain, No edema Abdomen: No constipation, No diarrhea, No nausea, No pain, No vomiting Musculoskeletal: No muscle pain Neurologic: + problem reported (complains of neuropathic pain on her left leg) Skin: No rash Medications Current Inpatient Medications Medications (Trade) Dose Ordered Sig/Tariq Route Start Time Stop Time Status Last Admin Dose Admin Latanoprost (Xalatan Oph Soln) 1 drops HS OPB 05/04/16 21:00 06/03/16 20:59 05/07/16 20:43 1 DROPS Sodium Chloride ([place] Nasal [place]) 2 sprays BID ADELA 05/04/16 09:00 06/03/16 08:59 05/08/16 07:29 2 SPRAYS Warfarin Sodium (Coumadin Tab) 3 mg SuTuThSa@1600 PO 05/04/16 16:00 06/03/16 15:59 Future hold 05/08/16 15:33 3 MG Warfarin Sodium 4 mg 4 mg MoWeFr@1600 PO 05/05/16 16:00 06/04/16 15:59 Future hold 05/05/16 16:29 4 MG Digoxin/Syringe (Digoxin IV/ Syringe) 10 ml @ 2 mls/min DAILY@16 IV 05/04/16 16:00 06/03/16 15:59 05/08/16 15:32 2 MLS/MIN Ondansetron HCl 4 mg 4 mg Q6H PRN IV 05/04/16 03:00 06/03/16 02:59 Acetaminophen (Ofirmev Iv) 100 ml @ 400 mls/hr Q8H PRN IV 05/04/16 03:00 06/03/16 02:59 Glucose (Glucose 40% Gel) UD PRN PO 05/04/16 03:00 06/03/16 02:59 Glucose (Glucose Chew Tab) 1 tabs UD PRN PO 05/04/16 03:00 06/03/16 02:59 Dextrose (Dextrose 50% 50ML Syringe) 50 ml UD PRN IV 05/04/16 03:00 06/03/16 02:59 05/05/16 06:07 50 ML Glucagon (Glucagon Inj) 1 mg UD PRN SQ 05/04/16 03:00 06/03/16 02:59 Insulin Aspart (novoLOG ASPART) SLIDING SCALE If C... ACHS SC 05/05/16 16:15 06/04/16 16:14 05/08/16 11:48 10 UNITS Amlodipine Besylate (Norvasc Tab) 5 mg DAILY PO 05/06/16 09:00 06/05/16 08:59 05/08/16 07:25 5 MG Atorvastatin Calcium (Lipitor Tab) 40 mg DAILY PO 05/06/16 09:00 06/05/16 08:59 05/08/16 07:25 40 MG Budesonide/ Formoterol Fumarate (Symbicort 160/ 4.5 Inh) 2 puffs BID INH 05/05/16 21:00 06/04/16 20:59 05/08/16 07:29 2 PUFFS Clopidogrel Bisulfate (plAVix TAB) 75 mg DAILY PO 05/06/16 09:00 06/05/16 08:59 05/08/16 07:26 75 MG Escitalopram Oxalate (Lexapro Tab) 10 mg DAILY PO 05/06/16 09:00 06/05/16 08:59 05/08/16 07:26 10 MG Gabapentin (Neurontin Cap) 900 mg TID PO 05/05/16 14:00 06/04/16 13:59 05/08/16 13:25 900 MG Levothyroxine Sodium (Synthroid Tab) 25 mcg Q2D@0600 PO 05/06/16 06:00 06/05/16 05:59 05/08/16 05:38 25 MCG Magnesium Oxide (Mag-Ox Tab) 400 mg BID PO 05/05/16 21:00 06/04/16 20:59 05/08/16 07:27 400 MG Metoprolol Tartrate (Lopressor Tab) 25 mg BID PO 05/05/16 21:00 06/04/16 20:59 05/08/16 07:27 25 MG Ropinirole HCl (Requip Tab) 0.5 mg DAILY PO 05/06/16 09:00 06/05/16 08:59 05/08/16 07:28 0.5 MG Senna (Senokot Tab) 8.6 mg DAILY PO 05/06/16 09:00 06/05/16 08:59 05/08/16 07:26 8.6 MG Alendronate Sodium (Fosamax Tab) 70 mg Mo@0700 PO 05/12/16 07:00 06/11/16 06:59 Miscellaneous Information (Order Awaiting Action) 1 ea QS N/A 05/05/16 14:00 06/04/16 13:59 05/08/16 08:00 1 EA Potassium Chloride (Klor-Con M10) 10 meq DAILY PO 05/06/16 09:00 06/05/16 08:59 05/08/16 07:28 10 MEQ Albuterol Sulfate 2 mg 2 mg Q4H PRN PO 05/05/16 12:30 06/04/16 12:29 05/06/16 09:21 2 MG Ceftriaxone Sodium 1 gm/ Dextrose 50 ml @ 120 mls/hr DAILY@1700 IV 05/06/16 17:00 05/09/16 17:24 05/07/16 16:11 120 MLS/HR Azithromycin/ Dextrose (Zithromax IV/D5 250ml) 252.5 ml @ 126.25 mls/ hr DAILY@1800 IV 05/07/16 18:00 05/10/16 19:59 05/07/16 17:19 126.25 MLS/HR Miscellaneous Information (Consult Glycemic Management Pharmacy) 1 ea UD PRN N/A 05/06/16 18:15 06/05/16 18:14 Bumetanide (Bumex Tab) 2 mg BID17 PO 05/07/16 17:00 06/06/16 16:59 05/08/16 07:24 2 MG Insulin Glargine (Lantus Solostar Pen) 22 unit QPM SC 05/08/16 21:00 06/07/16 20:59 Pantoprazole Sodium (Protonix Tab) 40 mg QAM PO 05/08/16 11:30 06/07/16 11:29 05/08/16 10:54 40 MG Objective Vital Signs Date Time Temp Pulse Resp B/P Pulse Ox O2 Delivery O2 Flow Rate FiO2 05/08/16 15:32 74 05/08/16 15:25 36.8 66 20 119/42 97 Nasal Cannula 4.0 05/08/16 14:28 36.5 67 20 96 4.0 05/08/16 11:28 Nasal Cannula 4.0 05/08/16 11:00 36.6 71 20 128/72 95 Nasal Cannula 3.0 05/08/16 08:00 Nasal Cannula 4.0 05/08/16 07:06 36.5 67 20 124/69 96 Nasal Cannula 4.0 05/08/16 04:16 36.5 77 21 101/58 98 Nasal Cannula 4.0 05/08/16 03:30 Nasal Cannula 4.0 05/07/16 23:30 Nasal Cannula 4.0 05/07/16 23:30 36.8 61 18 105/63 93 Nasal Cannula 4.0 05/07/16 20:00 Nasal Cannula 4.0 05/07/16 19:47 36.6 67 20 120/79 90 Nasal Cannula 4.0 Physical Exam General Appearance: WD/WN, no apparent distress Neck: supple, trachea midline Respiratory/Chest: chest non-tender, no respiratory distress, no accessory muscle use, + crackles (mostly at the bases, improved since yesterday) Cardiovascular: + systolic murmur, + irregularly irregular Abdomen: normal bowel sounds, non tender, soft Extremities: no calf tenderness, + pedal edema (trace of edema on the left leg , improved since yesterday), + 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) Neurologic/Psychiatric: alert, normal mood/affect Skin: normal color, warm/dry Laboratory Results Results Past 24 Hours Test 05/07/16 16:31 05/07/16 20:33 05/08/16 05:46 05/08/16 06:58 Range/Units Bedside Glucose 183 181 191 70-90 mg/dl White Blood Count 7.57 4.8-10.8 K/uL Red Blood Count 3.94 4.2-5.4 M/uL Hemoglobin 10.5 12.0-16.0 g/dL Hematocrit 33.8 37-47 % Mean Corpuscular Volume 85.8 80-100 fL Mean Corpuscular Hemoglobin 26.6 25-34 pg Mean Corpuscular Hemoglobin Concent 31.1 32-36 g/dl RDW Standard Deviation 53.9 36.4-46.3 fL RDW Coefficient of Variation 17.0 11.5-14.5 % Platelet Count 203 130-400 K/uL Mean Platelet Volume 10.2 7.4-10.4 fL Prothrombin Time 22.9 9.0-12.0 SECONDS Prothromb Time International Ratio 2.1 0.9-1.1 Activated Partial Thromboplast Time 40.5 21.0-31.0 SECONDS Partial Thromboplastin Ratio 1.6 Sodium Level 146 136-145 mmol/L Potassium Level 3.4 3.5-5.1 mmol/L Chloride Level 103 98-107 mmol/L Carbon Dioxide Level 37 21-32 mmol/L Anion Gap 6.0 3-11 mmol/L Blood Urea Nitrogen 13 7-18 mg/dl Creatinine 0.52 0.60-1.20 mg/dl Est Creatinine Clear Calc Drug Dose 89.4 ml/min Estimated GFR () 99.6 Estimated GFR (Non- 85.9 BUN/Creatinine Ratio 24.6 10-20 Random Glucose 185 70-99 mg/dl Calcium Level 8.1 8.5-10.1 mg/dl Test 05/08/16 11:41 05/08/16 16:02 Range/Units Bedside Glucose 216 221 70-90 mg/dl Assessment and Plan Patient is an 86 year old Female that presented [facility] the hospital from [facility]F with fevers, shortness of breath, and cough. Resume diet and all the home medications. IVF was discontinued today. Hamilton cath is placed today to accurately monitor her output. Patient is transferred to Med/Surg today. 1. Acute Hypoxic Respiratory Failure 04/10 Pneumonia - CXR in ED: RLL and RML pneumonia with scattered infiltrates of Left Lung - D/c IV Vancomycin, Clindamycin, and Aztreonam (given negative nasal swab for MRSA and negative BCx to date) on 05/06 - Currently requiring oxygen supplement, continue to wean off as tolerated - Currently afebrile (39.2 Rectal Temp in the ED) - Influenza negative, UA negative, Nasal swab for MRSA negative - Blood Cx (05/04): no growth to date - Start Day#3 IV Rocephin 1g (4 day course) and IV Zithromax 250mg daily (5 day course) 2. Altered Mental Status (resolved) - 2/2 Hypoxia and Fevers - Patient is alert and awake - C/w diet and resumed all the home medications. 3. Elevated INR (resolved) - Patient has elevated INR, 3.7-->4.5-->2.1 - C/w Coumadin 3mg/4mg alternative days - Continue to monitor INR daily 4. Diabetes - On Insulin Glargine and sliding scale - Continue to monitor glucose 5. Congested heart failure with preserved EF - Echo was performed on 12/23/2013 and showed EF 65-70% - CXR (05/06): Progressive pulmonary edema and/or progressive congestive failure. - D/c IVF (05/06) given worsening CHF - CXR (05/07): No change from previous CXR - CXR(05/08): Improving components of congestive failure - Increased Bumex to 2mg BID - CXR tomorrow morning - Hamilton cath in place - Monitor I/O and weight 6. Elevated ESR - Initially ESR was ordered on 05/04 and it was 90 - Repeated ESR (04/09) continued to be high (82) - At this moment there is no other clear cause of the elevated ESR other than infection. Age and gender do play a role in elevated ESR. Increased age and female sex tends to have higher ESR; however this wouldn't cause this significant elevation. - Will continue to monitor. 7. COPD - Continue Symbicort 2 Puff BID - Continue Ventolin syrup 2mg q4 prn for wheezing 8. Atrial Fibrillation - Continue Metoprolol 25mg BID - Continue Digoxin 125mcg IV - C/w Warfarin 3mg/4mg (alternating days) - Continue to monitor INR 9. Hypertension - Continue Norvasc 5mg PO Daily 10. Hyperlipidemia - Continue Lipitor 40mg PO Daily 11. Antiplatelet Therapy (Stroke?) - Continue Plavix 75mg Tab Once Daily 12. Hyperthyroidism - Continue Levothyroxine 25 mcg po q2D 13. Neuropathic pain - Continue gabapentin 900mg TID 14. Depression - Continue Lexapro 10mg daily 15. DVT Prophylaxis - Coumadin Resident Physician Supervision Note: I was present with Dr. Hicks during the history and exam. Please see my separate documentation for the same date Documented By: Nahid Valdes
--- NOTE | 2016-05-08 16:22 | Progress Note ---
Subjective Date of Service: May 08, 2016. Subjective Pt evaluation today including: conversation w/ family, physical exam, chart review, lab review, review of studies, review of inpatient medication list Pain: denies PO Intake: excellent Voiding: hamilton catheter in place 86-year-old female seen today in her hospital room. She is sleeping of though awakens to voice rather easily. She denies any complaints. Specifically C denies any chest pain cough or shortness of breath. Her mentation is remarkably clear, especially when compared to her presentation. Problem List Medical Problems: (1) Fever Status: Acute (2) Hypoxia Status: Acute (3) Pneumonia Status: Acute Review of Systems Constitutional: No fever Eyes: No problem reported ENT: No problem reported Respiratory: No cough, No shortness of breath Cardiac: No chest pain, No orthopnea Abdomen: No nausea, No pain Neurologic: + weakness, No memory loss, No numbness/tingling Endo: No fatigue All Other Systems: Reviewed and Negative Medications Medications Administered Medications (Trade) Dose Ordered Sig/Tariq Route Start Time Stop Time Status Last Admin Dose Admin Sodium Chloride (Nss 1000ml) 1,000 ml @ 999 mls/hr Q1H1M ONCE IV 05/04/16 01:01 05/04/16 02:01 DC 05/04/16 01:48 999 MLS/HR Acetaminophen (Tylenol Supp) 975 mg NOW STAT [place] 05/04/16 01:27 05/04/16 01:29 DC 05/04/16 01:49 975 MG Ceftriaxone Sodium 1 gm 1 gm NOW STAT IV 05/04/16 01:43 05/04/16 01:44 DC 05/04/16 01:43 1 GM Vancomycin HCl 1000 mg/Sodium Chloride 270 ml @ 125 mls/hr NOW STAT IV 05/04/16 02:29 05/04/16 04:38 DC 05/04/16 02:34 125 MLS/HR Potassium Chloride/Sodium Chloride (Nss + 20meq KCl 1000ml) 1,000 ml @ 100 mls/hr Q10H IV 05/04/16 04:30 05/06/16 15:25 DC 05/06/16 12:40 100 MLS/HR Insulin Glargine (Lantus Solostar Pen) 14 unit QPM SC 05/04/16 21:00 05/06/16 18:37 DC 05/05/16 21:23 14 UNIT Latanoprost (Xalatan Oph Soln) 1 drops HS OPB 05/04/16 21:00 06/03/16 20:59 05/07/16 20:43 1 DROPS Sodium Chloride ([place] Nasal [place]) 2 sprays BID ADELA 05/04/16 09:00 06/03/16 08:59 05/08/16 07:29 2 SPRAYS Warfarin Sodium (Coumadin Tab) 3 mg SuTuThSa@1600 PO 05/04/16 16:00 06/03/16 15:59 Future hold 05/08/16 15:33 3 MG Warfarin Sodium 4 mg 4 mg MoWeFr@1600 PO 05/05/16 16:00 06/04/16 15:59 Future hold 05/05/16 16:29 4 MG Digoxin/Syringe (Digoxin IV/ Syringe) 10 ml @ 2 mls/min DAILY@16 IV 05/04/16 16:00 06/03/16 15:59 05/08/16 15:32 2 MLS/MIN Insulin Aspart (novoLOG ASPART) SLIDING SCALE If C... ACHS SC 05/04/16 07:00 05/04/16 07:00 DC 05/04/16 05:56 2 UNITS Dextrose 50 ml 50 ml UD PRN IV 05/04/16 03:00 06/03/16 02:59 05/05/16 06:07 50 ML Pantoprazole Sodium 40 mg/ Syringe 10 ml @ 5 mls/min DAILY@11 IV 05/04/16 11:00 05/08/16 09:57 DC 05/07/16 10:16 5 MLS/MIN Aztreonam 1000 mg/ Dextrose 110 ml @ 100 mls/hr Q8H IV 05/04/16 08:00 05/06/16 16:16 DC 05/06/16 15:32 100 MLS/HR Clindamycin Phosphate 900 mg/ Dextrose 106 ml @ 100 mls/hr Q8H IV 05/04/16 06:00 05/06/16 16:16 DC 05/06/16 13:28 100 MLS/HR Vancomycin HCl/ Sodium Chloride (Vancomycin Inj/ Nss 250ml) 272 ml @ 125 mls/hr TODAY@0500 IV 05/04/16 05:00 05/04/16 07:11 DC 05/04/16 05:05 125 MLS/HR Insulin Aspart SLIDING SCALE If C... Q6 SC 05/04/16 06:00 05/05/16 12:22 DC 05/04/16 12:00 2 UNITS Vancomycin HCl/ Sodium Chloride (Vancomycin Inj/ Nss 250ml) 272 ml @ 125 mls/hr Q18H IV 05/04/16 22:00 05/05/16 17:42 DC 05/05/16 16:29 125 MLS/HR Insulin Aspart (novoLOG ASPART) SLIDING SCALE If C... ACHS SC 05/05/16 16:15 06/04/16 16:14 05/08/16 11:48 10 UNITS Amlodipine Besylate (Norvasc Tab) 5 mg DAILY PO 05/06/16 09:00 06/05/16 08:59 05/08/16 07:25 5 MG Atorvastatin Calcium (Lipitor Tab) 40 mg DAILY PO 05/06/16 09:00 06/05/16 08:59 05/08/16 07:25 40 MG Budesonide/ Formoterol Fumarate (Symbicort 160/ 4.5 Inh) 2 puffs BID INH 05/05/16 21:00 06/04/16 20:59 05/08/16 07:29 2 PUFFS Clopidogrel Bisulfate (plAVix TAB) 75 mg DAILY PO 05/06/16 09:00 06/05/16 08:59 05/08/16 07:26 75 MG Escitalopram Oxalate (Lexapro Tab) 10 mg DAILY PO 05/06/16 09:00 06/05/16 08:59 05/08/16 07:26 10 MG Gabapentin (Neurontin Cap) 900 mg TID PO 05/05/16 14:00 06/04/16 13:59 05/08/16 13:25 900 MG Levothyroxine Sodium (Synthroid Tab) 25 mcg Q2D@0600 PO 05/06/16 06:00 06/05/16 05:59 05/08/16 05:38 25 MCG Magnesium Oxide (Mag-Ox Tab) 400 mg BID PO 05/05/16 21:00 06/04/16 20:59 05/08/16 07:27 400 MG Metoprolol Tartrate (Lopressor Tab) 25 mg BID PO 05/05/16 21:00 06/04/16 20:59 05/08/16 07:27 25 MG Ropinirole HCl (Requip Tab) 0.5 mg DAILY PO 05/06/16 09:00 06/05/16 08:59 05/08/16 07:28 0.5 MG Senna (Senokot Tab) 8.6 mg DAILY PO 05/06/16 09:00 06/05/16 08:59 05/08/16 07:26 8.6 MG Miscellaneous Information (Order Awaiting Action) 1 ea QS N/A 05/05/16 14:00 06/04/16 13:59 05/08/16 08:00 1 EA Bumetanide (Bumex Tab) 1.5 mg BID17 PO 05/05/16 17:00 05/06/16 15:29 DC 05/06/16 09:20 1.5 MG Potassium Chloride (Klor-Con M10) 10 meq DAILY PO 05/06/16 09:00 06/05/16 08:59 05/08/16 07:28 10 MEQ Albuterol Sulfate 2 mg 2 mg Q4H PRN PO 05/05/16 12:30 06/04/16 12:29 05/06/16 09:21 2 MG Vancomycin HCl/ Sodium Chloride (Vancomycin Inj/ Nss 250ml) 272 ml @ 125 mls/hr Q12H IV 05/06/16 04:00 05/06/16 16:06 DC 05/06/16 15:32 125 MLS/HR Bumetanide (Bumex Tab) 1.5 mg QAM PO 05/07/16 09:00 05/07/16 14:22 DC 05/07/16 08:01 1.5 MG Bumetanide 2 mg 2 mg DAILY@1700 PO 05/06/16 17:00 05/07/16 14:22 DC 05/06/16 15:33 2 MG Ceftriaxone Sodium 1 gm/ Dextrose 50 ml @ 120 mls/hr DAILY@1700 IV 05/06/16 17:00 05/09/16 17:24 05/07/16 16:11 120 MLS/HR Azithromycin 500 mg/Dextrose 255 ml @ 127.5 mls/ hr NOW ONCE IV 05/06/16 18:00 05/06/16 19:59 DC 05/06/16 18:15 127.5 MLS/HR Azithromycin/ Dextrose (Zithromax IV/D5 250ml) 252.5 ml @ 126.25 mls/ hr DAILY@1800 IV 05/07/16 18:00 05/10/16 19:59 05/07/16 17:19 126.25 MLS/HR Insulin Glargine (Lantus Solostar Pen) 18 unit QPM SC 05/06/16 21:00 05/08/16 08:30 DC 05/07/16 20:42 18 UNIT Bumetanide (Bumex Tab) 0.5 mg NOW ONCE PO 05/07/16 10:00 05/07/16 10:03 DC 05/07/16 10:16 0.5 MG Bumetanide (Bumex Tab) 2 mg BID17 PO 05/07/16 17:00 06/06/16 16:59 05/08/16 07:24 2 MG Pantoprazole Sodium (Protonix Tab) 40 mg QAM PO 05/08/16 11:30 06/07/16 11:29 05/08/16 10:54 40 MG Objective Vital Signs Date Time Temp Pulse Resp B/P Pulse Ox O2 Delivery O2 Flow Rate FiO2 05/08/16 15:32 74 05/08/16 15:25 36.8 66 20 119/42 97 Nasal Cannula 4.0 05/08/16 14:28 36.5 67 20 96 4.0 05/08/16 11:28 Nasal Cannula 4.0 05/08/16 11:00 36.6 71 20 128/72 95 Nasal Cannula 3.0 05/08/16 08:00 Nasal Cannula 4.0 05/08/16 07:06 36.5 67 20 124/69 96 Nasal Cannula 4.0 05/08/16 04:16 36.5 77 21 101/58 98 Nasal Cannula 4.0 05/08/16 03:30 Nasal Cannula 4.0 05/07/16 23:30 Nasal Cannula 4.0 05/07/16 23:30 36.8 61 18 105/63 93 Nasal Cannula 4.0 05/07/16 20:00 Nasal Cannula 4.0 05/07/16 19:47 36.6 67 20 120/79 90 Nasal Cannula 4.0 Physical Exam General Appearance: WD/WN, no apparent distress Eyes: normal inspection, PERRL ENT: normal ENT inspection, hearing grossly normal Neck: supple, no adenopathy Respiratory/Chest: lungs clear Cardiovascular: no edema (trace edema of her 1 lower extremity.), + systolic murmur, + irregularly irregular Abdomen: normal bowel sounds, non tender, soft Extremities: non-tender Neurologic/Psychiatric: no motor/sensory deficits, alert, normal mood/affect, oriented x 3 Skin: normal color, warm/dry, no rash Laboratory Results Last 24 Hours Test 05/07/16 16:31 05/07/16 20:33 05/08/16 05:46 05/08/16 06:58 Bedside Glucose 183 mg/dl 181 mg/dl 191 mg/dl White Blood Count 7.57 K/uL Red Blood Count 3.94 M/uL Hemoglobin 10.5 g/dL Hematocrit 33.8 % Mean Corpuscular Volume 85.8 fL Mean Corpuscular Hemoglobin 26.6 pg Mean Corpuscular Hemoglobin Concent 31.1 g/dl RDW Standard Deviation 53.9 fL RDW Coefficient of Variation 17.0 % Platelet Count 203 K/uL Mean Platelet Volume 10.2 fL Prothrombin Time 22.9 SECONDS Prothromb Time International Ratio 2.1 Activated Partial Thromboplast Time 40.5 SECONDS Partial Thromboplastin Ratio 1.6 Sodium Level 146 mmol/L Potassium Level 3.4 mmol/L Chloride Level 103 mmol/L Carbon Dioxide Level 37 mmol/L Anion Gap 6.0 mmol/L Blood Urea Nitrogen 13 mg/dl Creatinine 0.52 mg/dl Est Creatinine Clear Calc Drug Dose 89.4 ml/min Estimated GFR () 99.6 Estimated GFR (Non- 85.9 BUN/Creatinine Ratio 24.6 Random Glucose 185 mg/dl Calcium Level 8.1 mg/dl Test 05/08/16 11:41 05/08/16 16:02 Bedside Glucose 216 mg/dl 221 mg/dl Assessment and Plan Acute Hypoxic Respiratory Failure 2/2 Pneumonia Clinically she looks much improved. Her improvement continues on Rocephin 1 g every 24 hours and Zithromax 250 mg daily. She still requires nasal cannula oxygen other than starting be weaned. Transfer to general medical floor today. Altered Mental Status Resolved Suspect was secondary to infection Diabetes Glycemic consult appreciated Congested heart failure with preserved EF She was slightly hypervolemic post fluid resuscitation with this is improved with increased Bumex dosing. Monitor clinically Atrial Fibrillation Rate controlled Remains on Coumadin Significantly elevated sedimentation rate Saccharide this was ordered initially, but repeat yesterday was also significantly elevated. Seems to be a little bit disproportionate to her infection, although no other clear diagnosis for cause We'll continue to monitor; differential diagnosis, in addition to infection, could be PMR, vasculitis, or malignancy. 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 Continued [facility] stay due to: multiple IV medications needed, home environment unsafe for pt Discharge planning: uncertain
[2016-05-08] MEDS: CEFTRIAXONE SOD INJ 1 GM in DEXTROSE 5% ADD-VANTAGE 50ML 50 ML IV SCH (17:06)
[2016-05-08] MEDS ORDERED: IV FLUIDS COMPLETED PRN (19:30)
[2016-05-08] MEDS: AZITHROMYCIN 250 MG / D5W 250 ML IV SCH ×2 (20:17)
[2016-05-08] MEDS: INSULIN GLARGINE SOLOSTAR 100 UNITS/ML 3 ML PEN SC SCH (20:31)
[2016-05-08] MEDS: LATANOPROST 0.005% OP SOLN 2.5 ML BTL OPB SCH (20:34)
[2016-05-09] VITALS (7 sets, daily range): BP systolic 118–136; BP diastolic 52–85; PULSE 62–75; TEMP 36.5–36.7; O2SAT 3–98
--- NOTE | 2016-05-09 07:18 | DIAGNOSTIC IMAGING REPORT ---
CHEST ONE VIEW PORTABLE CLINICAL HISTORY: Congestive heart failure COMPARISON STUDY: May 08, 2016 FINDINGS: The heart remains mildly enlarged. There is continued radiographic evidence of congestive failure. There are bilateral pleural effusions with associated bibasal airspace opacities. 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 05/09/2016 7:16 AM Dictated Date/Time: 05/09/2016 7:16 AM
[2016-05-09 08:12] LABS: HEMATOCRIT 33.5 % (37-47); MEAN CELL VOLUME 84.2 fL (80-100); MEAN CORPUSCULAR HEMOGLOBIN 26.6 pg (25-34); MEAN CORPUSCULAR HGB CONC 31.6 g/dl (32-36); MEAN PLATELET VOLUME 9.8 fL (7.4-10.4); PLATELET COUNT 220 K/uL (130-400); RED BLOOD COUNT 3.98 M/uL (4.2-5.4)
[2016-05-09 08:19] LABS: INR 1.4 (0.9-1.1); PARTIAL THROMBOPLASTIN RATIO 1.2; PROTHROMBIN TIME (PATIENT) 15.1 SECONDS (9.0-12.0)
[2016-05-09 08:48] LABS: BUN/CREATININE RATIO 29.8 (10-20); CALCIUM 8.6 mg/dl (8.5-10.1); CREATININE 0.44 mg/dl (0.60-1.20); POTASSIUM 3.1 mmol/L (3.5-5.1)
[2016-05-09] MEDS: BUDESONIDE/FORMOTEROL FUMARATE 160/4.5 60 PUFFS/INHALER INH SCH ×2 (08:56→20:25)
[2016-05-09] MEDS: SODIUM CHLORIDE 0.65% NA SOLN 45 ML (OCEAN) NAE SCH ×2 (08:57→20:25)
[2016-05-09] MEDS: METOPROLOL TARTRATE 25 MG TAB PO SCH ×2 (08:57→20:26)
[2016-05-09] MEDS: ATORVASTATIN 40 MG TAB PO SCH (08:57)
[2016-05-09] MEDS: AMLODIPINE BESYLATE 5 MG TAB PO SCH (08:57)
[2016-05-09] MEDS: GABAPENTIN 300 MG CAP PO SCH ×3 (08:57→20:26)
[2016-05-09] MEDS: ESCITALOPRAM OXALATE 10 MG TAB PO SCH (08:57)
[2016-05-09] MEDS: SENNA 8.6 MG TAB PO SCH (08:58)
[2016-05-09] MEDS: ROPINIROLE HCL 0.25 MG TAB PO SCH (08:58)
[2016-05-09] MEDS: PANTOprazole SOD 40 MG TAB PO SCH (08:58)
[2016-05-09] MEDS: MAGNESIUM OXIDE 400 MG TAB PO SCH ×2 (08:58→20:26)
[2016-05-09] MEDS: BUMETANIDE 1 MG TAB PO SCH ×2 (08:59→17:20)
[2016-05-09] MEDS: CLOPIDOGREL BISULFATE 75 MG TAB PO SCH (08:59)
[2016-05-09] MEDS: POTASSIUM CHLORIDE 10 MEQ TABCR PO SCH (08:59)
[2016-05-09] MEDS: INSULIN ASPART 100 UNITS/ML 3 ML PEN SC SCH ×4 (09:03→20:33)
--- NOTE | 2016-05-09 09:31 | Pharmacy Progress Note ---
Glycemic Control: Progress Nt Date of Service May 09, 2016. Scope Glycemic Pharmacist consulted by Dr Hicks on 05/06/16 for glycemic control and to write orders per [facility] inpatient glycemic control protocol. Objective Accuchecks BSG (last 24hrs): Test 05/08/16 11:41 05/08/16 16:02 05/08/16 20:09 05/09/16 07:52 Bedside Glucose 216 mg/dl (70-90) 221 mg/dl (70-90) 229 mg/dl (70-90) Random Glucose 105 mg/dl (70-99) Laboratory Data (last 24hrs) Test 05/09/16 07:52 Anion Gap 6.0 mmol/L BUN/Creatinine Ratio 29.8 Blood Urea Nitrogen 13 mg/dl Creatinine 0.44 mg/dl Potassium Level 3.1 mmol/L Sodium Level 144 mmol/L White Blood Count 7.50 K/uL Recent Pertinent Medications Outpatient Anti-diabetic Regimen: * NovoLog 4 units SQ AC * NovoLog sliding scale * Lantus 24 units SQ q PM * A1c = 7.6 % 03/30/16 The patient is currently receiving: * Basal insulin: Lantus 22 units every 24 hours * Correctional Insulin: NovoLog Correction per scale AC/HS Goal Range: Low 110 mg/dL - High 150 mg/dL Correction Factor: 20 mg/dL/unit * Prandial insulin: Per carb ratio of 1 unit per 7 grams CHO consumed Risk Factors for Insulin Resistance: * Infection: * Diet: Assessment & Plan ASSESSMENT: * ADA & AACE recommend a goal blood sugar range 140-180 mg/dl for the majority of critically ill & non-critically ill patients. However, more stringent targets may be selected in individual cases. 05/07/16 * 86 y/o type 2 diabetic - consulted to managed BSGs secondary to hyperglycemia * BSGs rise throughout the day indicating need for prandial coverage * NovoLog parameters tightened last evening based on weight * Lantus increased by ~25% as diet has been resumed * will not likely require home dosing as it is disproportional to home NovoLog 05/08/16 * BSGs above goal yesterday with 42 units of insulin on board * At home, the patient takes 24 units of Lantus nightly * increase inpatient dose toward home dose since fasting BSG again elevated today * Rise in BSGs throughout the day and diet improved * will tighten NovoLog parameters as well 05/09/16 * Ms Powell received 56 units of insulin yesterday (up from the prior two days ) with BSGs ranging from 185-229mg/dL * Yesterday, basal insulin increased by ~20% and today the fasting BSG is much improved * may need to remove correctional insulin at HS if BSG dropping precipitously overnight * Currently, Ms Powell is receiving a near 50/50 ratio of basal/bolus insulin * continue same * Carb ratio was tightened yesterday to help rise in BSG throughout the day * continue to follow and titrate when needed * Question if patient may benefit from q AM Lantus dosing PLAN FOR INPATIENT GLYCEMIC CONTROL: * Lantus 22 units SQ q PM * HALF DOSE IF BSG IS LESS THAN 140MG/DL * NovoLog SQ AC and HS * Correction factor 20 mg/dL/unit * Carb ratio: 1 unit per 7 g of CHO consumed * Goal range 110-150mg/dL * A1c - current * added to discharge instructions RECOMMENDATIONS FOR DISCHARGE: * Likely, Mr. Powell can continue his home regimen upon discharge * Please note that the plan above was derived based on current level of insulin resistance and hospital stress. These recommendations are appropriate for inpatient admission only. Plan of care upon discharge will need to be reassessed to avoid potential outpatient hypo/hyperglycemia. Thank you.
--- NOTE | 2016-05-09 16:21 | Family Medicine Progress Note ---
Progress Note Date of Service May 09, 2016. Subjective Pt evaluation today including: conversation w/ patient, physical exam, lab review Pain: Denies Voiding: hamilton catheter in place Patient was seen at the bedside. Patient was eating her breakfast. She is tolerating food well. Denies any complaints today. Constitutional: No chills, No fever Respiratory: No cough, No dyspnea at rest, No dyspnea on exertion, No shortness of breath, No wheezing Cardiovascular: No chest pain, No edema Abdomen: No constipation, No diarrhea, No nausea, No pain, No vomiting Musculoskeletal: No muscle pain Neurologic: + problem reported (Neuropathic pain on the left leg), No weakness Skin: No rash Medications Current Inpatient Medications Medications (Trade) Dose Ordered Sig/Tariq Route Start Time Stop Time Status Last Admin Dose Admin Latanoprost (Xalatan Oph Soln) 1 drops HS OPB 05/04/16 21:00 06/03/16 20:59 05/08/16 20:34 1 DROPS Sodium Chloride ([place] Nasal [place]) 2 sprays BID ADELA 05/04/16 09:00 06/03/16 08:59 05/09/16 08:57 2 SPRAYS Warfarin Sodium (Coumadin Tab) 3 mg SuTuThSa@1600 PO 05/04/16 16:00 06/03/16 15:59 Future hold 05/08/16 15:33 3 MG Warfarin Sodium 4 mg 4 mg MoWeFr@1600 PO 05/05/16 16:00 06/04/16 15:59 Future hold 05/05/16 16:29 4 MG Digoxin/Syringe (Digoxin IV/ Syringe) 10 ml @ 2 mls/min DAILY@16 IV 05/04/16 16:00 06/03/16 15:59 05/08/16 15:32 2 MLS/MIN Ondansetron HCl 4 mg 4 mg Q6H PRN IV 05/04/16 03:00 06/03/16 02:59 Acetaminophen (Ofirmev Iv) 100 ml @ 400 mls/hr Q8H PRN IV 05/04/16 03:00 06/03/16 02:59 Glucose (Glucose 40% Gel) UD PRN PO 05/04/16 03:00 06/03/16 02:59 Glucose (Glucose Chew Tab) 1 tabs UD PRN PO 05/04/16 03:00 06/03/16 02:59 Dextrose (Dextrose 50% 50ML Syringe) 50 ml UD PRN IV 05/04/16 03:00 06/03/16 02:59 05/05/16 06:07 50 ML Glucagon (Glucagon Inj) 1 mg UD PRN SQ 05/04/16 03:00 06/03/16 02:59 Insulin Aspart (novoLOG ASPART) SLIDING SCALE If C... ACHS SC 05/05/16 16:15 06/04/16 16:14 05/09/16 12:20 4 UNITS Amlodipine Besylate (Norvasc Tab) 5 mg DAILY PO 05/06/16 09:00 06/05/16 08:59 05/09/16 08:57 5 MG Atorvastatin Calcium (Lipitor Tab) 40 mg DAILY PO 05/06/16 09:00 06/05/16 08:59 05/09/16 08:57 40 MG Budesonide/ Formoterol Fumarate (Symbicort 160/ 4.5 Inh) 2 puffs BID INH 05/05/16 21:00 06/04/16 20:59 05/09/16 08:56 2 PUFFS Clopidogrel Bisulfate (plAVix TAB) 75 mg DAILY PO 05/06/16 09:00 06/05/16 08:59 05/09/16 08:59 75 MG Escitalopram Oxalate (Lexapro Tab) 10 mg DAILY PO 05/06/16 09:00 06/05/16 08:59 05/09/16 08:57 10 MG Gabapentin (Neurontin Cap) 900 mg TID PO 05/05/16 14:00 06/04/16 13:59 05/09/16 14:05 900 MG Levothyroxine Sodium (Synthroid Tab) 25 mcg Q2D@0600 PO 05/06/16 06:00 06/05/16 05:59 05/08/16 05:38 25 MCG Magnesium Oxide (Mag-Ox Tab) 400 mg BID PO 05/05/16 21:00 06/04/16 20:59 05/09/16 08:58 400 MG Metoprolol Tartrate (Lopressor Tab) 25 mg BID PO 05/05/16 21:00 06/04/16 20:59 05/09/16 08:57 25 MG Ropinirole HCl (Requip Tab) 0.5 mg DAILY PO 05/06/16 09:00 06/05/16 08:59 05/09/16 08:58 0.5 MG Senna (Senokot Tab) 8.6 mg DAILY PO 05/06/16 09:00 06/05/16 08:59 05/09/16 08:58 8.6 MG Alendronate Sodium (Fosamax Tab) 70 mg Mo@0700 PO 05/12/16 07:00 06/11/16 06:59 Miscellaneous Information (Order Awaiting Action) 1 ea QS N/A 05/05/16 14:00 06/04/16 13:59 05/08/16 08:00 1 EA Potassium Chloride (Klor-Con M10) 10 meq DAILY PO 05/06/16 09:00 06/05/16 08:59 05/09/16 08:59 10 MEQ Albuterol Sulfate 2 mg 2 mg Q4H PRN PO 05/05/16 12:30 06/04/16 12:29 05/06/16 09:21 2 MG Ceftriaxone Sodium/Dextrose (Rocephin Inj/ Dextrose Add-[place] 50ML) 50 ml @ 120 mls/hr DAILY@1700 IV 05/06/16 17:00 05/09/16 17:24 05/08/16 17:06 120 MLS/HR Miscellaneous Information (Consult Glycemic Management Pharmacy) 1 ea UD PRN N/A 05/06/16 18:15 06/05/16 18:14 Bumetanide (Bumex Tab) 2 mg BID17 PO 05/07/16 17:00 06/06/16 16:59 05/09/16 08:59 2 MG Insulin Glargine (Lantus Solostar Pen) 22 unit QPM SC 05/08/16 21:00 06/07/16 20:59 05/08/16 20:31 22 UNIT Pantoprazole Sodium (Protonix Tab) 40 mg QAM PO 05/08/16 11:30 06/07/16 11:29 05/09/16 08:58 40 MG Miscellaneous (Iv Fluids Completed) 1 ea PRN PRN N/A 05/08/16 19:30 05/08/17 19:29 Azithromycin (Zithromax Tab) 250 mg DAILY@1800 PO 05/09/16 18:00 05/10/16 18:01 Objective Vital Signs Date Time Temp Pulse Resp B/P Pulse Ox O2 Delivery O2 Flow Rate FiO2 05/09/16 14:58 36.5 62 20 118/52 98 Nasal Cannula 2.0 05/09/16 07:46 3 Nasal Cannula 05/09/16 07:20 36.7 75 18 136/85 98 Room Air 05/09/16 00:00 4 Nasal Cannula 05/08/16 23:42 36.6 63 16 144/74 98 Nasal Cannula 4.0 05/08/16 19:30 97 Nasal Cannula 4.0 05/08/16 17:59 36.5 74 18 122/71 97 Nasal Cannula 4.0 Physical Exam General Appearance: WD/WN, no apparent distress Neck: supple, trachea midline Respiratory/Chest: chest non-tender, lungs clear, no respiratory distress, no accessory muscle use, + decreased breath sounds (at the right base) Cardiovascular: no edema, + systolic murmur, + irregularly irregular Abdomen: normal bowel sounds, non tender, soft Extremities: no pedal edema, no calf tenderness, + 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) Neurologic/Psychiatric: alert, normal mood/affect Skin: normal color, warm/dry Laboratory Results Results Past 24 Hours Test 05/08/16 20:09 05/09/16 07:26 05/09/16 07:52 05/09/16 11:41 Range/Units Bedside Glucose 229 185 142 70-90 mg/dl White Blood Count 7.50 4.8-10.8 K/uL Red Blood Count 3.98 4.2-5.4 M/uL Hemoglobin 10.6 12.0-16.0 g/dL Hematocrit 33.5 37-47 % Mean Corpuscular Volume 84.2 80-100 fL Mean Corpuscular Hemoglobin 26.6 25-34 pg Mean Corpuscular Hemoglobin Concent 31.6 32-36 g/dl RDW Standard Deviation 52.0 36.4-46.3 fL RDW Coefficient of Variation 17.0 11.5-14.5 % Platelet Count 220 130-400 K/uL Mean Platelet Volume 9.8 7.4-10.4 fL Prothrombin Time 15.1 9.0-12.0 SECONDS Prothromb Time International Ratio 1.4 0.9-1.1 Activated Partial Thromboplast Time 32.2 21.0-31.0 SECONDS Partial Thromboplastin Ratio 1.2 Sodium Level 144 136-145 mmol/L Potassium Level 3.1 3.5-5.1 mmol/L Chloride Level 100 98-107 mmol/L Carbon Dioxide Level 38 21-32 mmol/L Anion Gap 6.0 3-11 mmol/L Blood Urea Nitrogen 13 7-18 mg/dl Creatinine 0.44 0.60-1.20 mg/dl Est Creatinine Clear Calc Drug Dose 103.5 ml/min Estimated GFR () 105.2 Estimated GFR (Non- 90.8 BUN/Creatinine Ratio 29.8 10-20 Random Glucose 105 70-99 mg/dl Calcium Level 8.6 8.5-10.1 mg/dl Test 05/09/16 16:09 Range/Units Bedside Glucose 135 70-90 mg/dl Assessment and Plan Patient is an 86 year old Female that presented [facility] the hospital from [facility] with fevers, shortness of breath, and cough. Resume diet and all the home medications. IVF was discontinued today. Hamilton cath is placed today to accurately monitor her output. Patient is clinically improving. 1. Acute Hypoxic Respiratory Failure 2/2 Pneumonia - CXR in ED: RLL and RML pneumonia with scattered infiltrates of Left Lung - D/c IV Vancomycin, Clindamycin, and Aztreonam (given negative nasal swab for MRSA and negative BCx to date) on 05/06 - Currently requiring oxygen supplement, continue to wean off as tolerated - Currently afebrile (39.2 Rectal Temp in the ED) - Influenza negative, UA negative, Nasal swab for MRSA negative - Blood Cx (05/04): no growth to date - Start Day#4 IV Rocephin 1g (4 day course) and Day #4 PO Zithromax 250mg daily (5 day course) 2. Altered Mental Status (resolved) - 2/2 Hypoxia and Fevers - Patient is alert and awake - C/w diet and resumed all the home medications. 3. Elevated INR (resolved) - Patient has elevated INR, 3.7-->4.5-->2.1 - C/w Coumadin 3mg/4mg alternative days - Continue to monitor INR daily 4. Diabetes - On Insulin Glargine and sliding scale - Continue to monitor glucose 5. Congested heart failure with preserved EF - Echo was performed on 12/23/2013 and showed EF 65-70% - CXR (05/06): Progressive pulmonary edema and/or progressive congestive failure. - D/c IVF (05/06) given worsening CHF - CXR (05/07): No change from previous CXR - CXR(05/08): Improving components of congestive failure - CXR (05/09): Stable congestive failure with bilateral pleural effusions and associated bibasal airspace opacities - Increased Bumex to 2mg BID - Hamilton cath in place - Monitor I/O and weight 6. Elevated ESR - Initially ESR was ordered on 05/04 and it was 90 - Repeated ESR (04/09) continued to be high (82) - At this moment there is no other clear cause of the elevated ESR other than infection. Differential diagnosis includes but not limited to malignancy, vasculitis (temporal arthritis), polymyalgia rheumatica, RA, and multiple myeloma. Increased age, being female sex and anemia can cause high ESR; however this wouldn't cause this significant elevation. At this moment we will continue to monitor. 7. COPD - Continue Symbicort 2 Puff BID - Continue Ventolin syrup 2mg q4 prn for wheezing 8. Atrial Fibrillation - Continue Metoprolol 25mg BID - Continue Digoxin 125mcg IV - C/w Warfarin 3mg/4mg (alternating days) - Continue to monitor INR 9. Hypertension - Continue Norvasc 5mg PO Daily 10. Hyperlipidemia - Continue Lipitor 40mg PO Daily 11. Antiplatelet Therapy (Stroke?) - Continue Plavix 75mg Tab Once Daily 12. Hyperthyroidism - Continue Levothyroxine 25 mcg po q2D 13. Neuropathic pain - Continue gabapentin 900mg TID 14. Depression - Continue Lexapro 10mg daily 15. DVT Prophylaxis - Coumadin Dispo: PT and OT is ordered. Possible discharge tomorrow to [facility]. Resident Physician Supervision Note: I was present with Dr. Hicks during the history and exam. I discussed the case with the resident and agree with the findings and plan as documented in the note. Any exceptions or clarifications are listed here: Acute Hypoxic Respiratory Failure 2/2 Pneumonia Her mental status change has completely resolved. She denies any chest pain or shortness of breath. She continues on 2 L of oxygen but she is at 98% SPO2; will write order to wean oxygen. We'll get out of bed and see how she does with transfers Altered Mental Status Resolved Suspect was secondary to infection Diabetes Glycemic consult appreciated Congested heart failure with preserved EF Her chest x-ray shows a stable congestive pattern She seems fairly euvolemic on exam Continue Bumex 2 mg twice a day Atrial Fibrillation Rate controlled Remains on Coumadin Significantly elevated sedimentation rate It is not clear why this was ordered initially, but repeat was also significantly elevated. Seems to be a little bit disproportionate to her infection, although no other clear diagnosis for cause. We'll continue to monitor; differential diagnosis, in addition to infection, could be PMR, vasculitis, or malignancy. 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 Continued [facility] stay due to: multiple IV medications needed, home environment unsafe for pt Discharge planning: [facility] Documented By: Nahid Valdes
[2016-05-09] MEDS: WARFARIN SOD 4 MG TAB PO SCH (16:28)
[2016-05-09] MEDS: DIGOXIN IV 125 MCG in SYRINGE 9.5 ML IV SCH (16:31)
[2016-05-09] MEDS: CEFTRIAXONE SOD INJ 1 GM in DEXTROSE 5% ADD-VANTAGE 50ML 50 ML IV SCH (17:18)
[2016-05-09] MEDS: AZITHROMYCIN 250 MG TAB PO SCH (18:02)
[2016-05-09] MEDS: LATANOPROST 0.005% OP SOLN 2.5 ML BTL OPB SCH (20:27)
[2016-05-09] MEDS: INSULIN GLARGINE SOLOSTAR 100 UNITS/ML 3 ML PEN SC SCH (20:34)
[2016-05-10] VITALS: O2SAT 4
[2016-05-10] MEDS: LEVOTHYROXINE 25 MCG TAB PO SCH (04:48)
[2016-05-10 06:30] LABS: MEAN CELL VOLUME 84.6 fL (80-100); MEAN CORPUSCULAR HEMOGLOBIN 26.4 pg (25-34); MEAN CORPUSCULAR HGB CONC 31.2 g/dl (32-36); MEAN PLATELET VOLUME 10.3 fL (7.4-10.4); PLATELET COUNT 254 K/uL (130-400); RED BLOOD COUNT 4.02 M/uL (4.2-5.4); WHITE BLOOD COUNT 8.21 K/uL (4.8-10.8)
[2016-05-10 06:39] LABS: INR 1.3 (0.9-1.1); PARTIAL THROMBOPLASTIN RATIO 1.3; PROTHROMBIN TIME (PATIENT) 14.6 SECONDS (9.0-12.0)
[2016-05-10 07:03] VITALS: BP 134/72; PULSE 62; TEMP 36.4; O2SAT 98
[2016-05-10 07:37] LABS: BUN/CREATININE RATIO 23.4 (10-20); CALCIUM 9.2 mg/dl (8.5-10.1); CREATININE 0.77 mg/dl (0.60-1.20); POTASSIUM 3.1 mmol/L (3.5-5.1)
[2016-05-10 08:00] VITALS: O2SAT 98
[2016-05-10] MEDS: CLOPIDOGREL BISULFATE 75 MG TAB PO SCH (08:17)
[2016-05-10] MEDS: BUDESONIDE/FORMOTEROL FUMARATE 160/4.5 60 PUFFS/INHALER INH SCH (08:17)
[2016-05-10] MEDS: ESCITALOPRAM OXALATE 10 MG TAB PO SCH (08:17)
[2016-05-10] MEDS: GABAPENTIN 300 MG CAP PO SCH ×2 (08:17→13:33)
[2016-05-10] MEDS: MAGNESIUM OXIDE 400 MG TAB PO SCH (08:18)
[2016-05-10] MEDS: METOPROLOL TARTRATE 25 MG TAB PO SCH (08:18)
[2016-05-10] MEDS: SENNA 8.6 MG TAB PO SCH (08:18)
[2016-05-10] MEDS: SODIUM CHLORIDE 0.65% NA SOLN 45 ML (OCEAN) NAE SCH (08:19)
[2016-05-10] MEDS: ATORVASTATIN 40 MG TAB PO SCH (08:19)
[2016-05-10] MEDS: ROPINIROLE HCL 0.25 MG TAB PO SCH (08:19)
[2016-05-10] MEDS: POTASSIUM CHLORIDE 10 MEQ TABCR PO SCH (08:19)
[2016-05-10] MEDS: BUMETANIDE 1 MG TAB PO SCH ×2 (08:21→16:40)
[2016-05-10] MEDS: PANTOprazole SOD 40 MG TAB PO SCH (08:22)
[2016-05-10] MEDS: AMLODIPINE BESYLATE 5 MG TAB PO SCH (08:22)
[2016-05-10] MEDS: INSULIN ASPART 100 UNITS/ML 3 ML PEN SC SCH ×4 (08:40→17:34)
--- NOTE | 2016-05-10 12:11 | Discharge Instructions ---
Discharge Instructions Admission Reason for Admission: Hypoxia, Pneumonia (Antonio Toth MD) Discharge Discharge Diagnosis / Problem: Pneumonia (Antonio Toth MD) Discharge Goals Goal(s): Improve function (Antonio Toth MD) Activity Recommendations Activity Limitations: per Instructions/Follow-up section Lifting Limitations: gradually increase as tolerated Exercise/Sports Limitations: gradually increase as tolerated Shower/Bathe: no limitations . (Antonio Toth MD) Instructions / Follow-Up Instructions / Follow-Up - Patient will be discharged to [facility] - Completed 4 day course of Rocephin and 5 day course of Azithromycin - Continue O2 as needed at [facility] - Take 6mg of Warfarin TONIGHT instead of normal daily dose - Check INR tomorrow and continue to follow at [facility]. INR today of 1.3, Goal Range of 2-3 - Follow up with Primary Care Provider in next 2 weeks (Antonio Toth MD) Instructions / Follow-Up Patient had initial three days of Vancomycin, Clindamycin, and Aztreonam before being downgraded to Zithromax and Rocephin. Patient also had a significant ESR elevation which seemed disproportionate to her infection; this may be trended as an outpatient. (Nahid Valdes,D.O.) Current Hospital Diet Patient's current hospital diet: Diabetes Type 2 Diet, Low Sodium Diet (2gm Na) (Antonio Toth MD) Discharge Diet Recommended Diet: Diabetes Type 2 Diet (Antonio Toth MD) Pending Studies Studies pending at discharge: no (Antonio Toth MD) Laboratory Results Hemoglobin A1c Test 03/30/16 05:52 Range/Units Estimated Average Glucose 171 mg/dl Hemoglobin A1c 7.6 H 4.5-5.6 % (Antonio Toth MD) Medical Emergencies . Who to Call and When: Medical Emergencies: If at any time you feel your situation is an emergency, please call 911 immediately. . (Antonio Toth MD) Non-Emergent Contact Non-Emergency issues call your: Primary Care Provider . (Antonio Toth MD) . "Provider Documentation" section prepared by Antonio Toth. (Antonio Toth MD) VTE Core Measure Inpt VTE Proph given/why not?: Warfarin (Coumadin) (Antonio Toth MD)
[2016-05-10] MEDS ORDERED: WARF6TAB PO (12:58)
--- NOTE | 2016-05-10 13:20 | Discharge Summary ---
Discharge Summary Date of Service May 10, 2016. (Antonio Toth MD) Discharge Summary Admission Date: May 04, 2016 at 02:48 Discharge Date: May 10, 2016 Discharge Disposition: Home Principal Diagnosis: Acute Hypoxic Respiratory Failure Immunizations: Have You Had Influenza Vaccine: No Influenza Vaccine Date: Jun 01, 2011 History of Tetanus Vaccine?: utd History of Pneumococcal: Yes Pneumococcal Date: Sep 02, 2012 History of Hepatitis B Vaccine: No (Antonio Toth MD) Medication Reconciliation New Medications: Warfarin Sodium (Coumadin) 6 Mg Tab 1 TAB PO DAILY for 1 Day, #1 TAB Continued Medications: Acetaminophen Tab (Tylenol) 325 Mg Tab 650 MG PO Q6 PRN for MILD PAIN, TAB ALSO PRN FOR TEMP >101F Albuterol Sulf (Ventolin) 2 Mg/5 Ml Syrp 1 DOSE INH Q4 PRN for Wheezing Alendronate Sodium (Binosto) 70 Mg Tab 70 MG PO MONDAYS Amlodipine (Norvasc) 5 Mg Tab 5 MG PO DAILY, TAB Atorvastatin (Lipitor) 40 Mg Tab 40 MG PO DAILY, TAB Bepotastine Besilate (Bepreve) 1.5 % Christiano 1 DROP OPB BID Budesonide/Formoterol Fumarate (Symbicort 160/4.5 Inhaler ) Aero 2 PUFFS INH BID, INHALER Bumetanide (Bumetanide) 0.5 Mg Tab 1.5 MG PO BID Calcium Carbonate-Vitamin D (Calcium + D) 1 Tab Tab 1 TAB PO BID Cholecalciferol (Vitamin D3) 2,000 Unit Tab 2000 UNITS PO DAILY for 90 Days, TAB 3 Refills Clopidogrel (Plavix) 75 Mg Tab 75 MG PO DAILY, TAB Digoxin (Digoxin) 0.125 Mg/2.5 Ml Elix 0.125 MG PO HS Escitalopram Oxalate (Lexapro) 10 Mg Tab 10 MG PO DAILY, TAB Gabapentin (Neurontin) 300 Mg Cap 900 MG PO TID, CAP Insulin Aspart (Novolog Penfill) 100 Unit/Ml Inj 4 SC DIRECTED take before meals Insulin Aspart (Novolog) 100 Units/Ml Inj 100 SC DIRECTED inject per sliding scale 0-150-gine 0 units, before meals and at hs. 151-200 give 6 units, 529-246-erxr 8 units, 251-300 give 10 units, 301-350 give 12 units, 351-400 give 14 units, 401-450 give 16 units greater than 451 call md Insulin Glargine (Lantus) 100 Unit/Ml Inj 24 SC QPM, VIAL Latanoprost (Xalatan 0.005% Oph Anna) 0.005 % Anna 1 DROPS OPB HS, #2.5 ML 3 Refills Levothyroxine Sodium (Levothyroxine Sodium) 25 Mcg Tab 25 MCG PO Q2D for 30 Days, TAB 5 Refills Magnesium Oxide (Mag-Ox) 400 Mg Tab 400 MG PO BID, TAB Metoprolol Tartrate (Lopressor) (Lopressor) 25 Mg Tab 25 MG PO BID, TAB Multivitamin (Multivitamin) Tab 1 TAB PO DAILY, TAB Oxygen (Oxygen) Gas 3 LITER NA CONTINOUS Potassium Chloride (Potassium Chloride Er) 10 Meq Tab 10 MEQ PO DAILY Ropinirole (Requip) 0.5 Mg Tab 0.5 MG PO DAILY, TAB Saline (Saline Nasal [place]) 0.65 % Spr 2 SPRAYS ADELA BID Sennosides (Senokot) 8.6 Mg Tab 8.6 MG PO DAILY, TAB Umeclidinium Arnold (Incruse Ellipta) 62.5 Mcg/Inh Inh 1 PUFF INH DAILY Warfarin Sodium (Coumadin) 3 Mg Tab 3 MG PO 4XWK THU/THU//SATURDAYS Warfarin Sodium (Coumadin) 4 Mg Tab 4 MG PO 3XWK THU/THU/FRIDAYS Discharge Exam Review of Systems: Constitutional: No chills, No fever Respiratory: + cough, No shortness of breath, No wheezing Cardiovascular: No chest pain, No edema, No orthopnea Abdomen: No diarrhea, No nausea, No pain, No vomiting Genitourinary - Female: No dysuria Neurologic: No weakness Integumentary: No rash Physical Exam: General Appearance: WD/WN, no apparent distress Respiratory/Chest: chest non-tender, lungs clear, normal breath sounds Cardiovascular: + systolic murmur, + irregularly irregular Abdomen / GI: normal bowel sounds, non tender, soft Extremities: + pertinent finding (Right Sided Below Knee Leg Amputation) (Antonio Toth .MD) Hospital Course Patient is an 86 year old female that presented from [facility] with AMS, Fever, and pulmonary infiltrates on chest X-Ray. The patient was started on Vancomycin , Clindamycin, and Aztreonam. The patient became alert and oriented after 2 days of treatment, blood cultures were negative, and she was transitioned to Rocephin (4 Days tx) and Azithromycin (5 Day tx). During the admission the patient began to have signs of fluid overload including crackles and chest x- ray showed pulmonary edema. IV fluids were held and the patients dose of Bumex was increased from 1.5mg BID to 2mg BID. The patient volume status improved, as well as her lungs became clear to auscultation bilaterally. On initial presentation the patient was requiring 6L of Oxygen and at time of discharge the patient is now requiring 1L O2 by nasal cannula. All medications were transitioned back to oral formulations. The INR of the patient increased to as high as 4.5 so her Coumadin was held. It came down to 2.1 and the Coumadin home dose of the patient was resumed, but the INR fell to 1.3. The dose of the patients Coumadin will be increased to 6mg tonight and then she will resume her regular dose tomorrow and have her INR followed at [facility]. Total Time Spent: Greater than 30 minutes This includes examination of the patient, discharge planning, medication reconciliation, and communication with other providers. (Antonio Toth MD) Resident Physician Supervision Note: I was present with Dr. Toth during the history and exam. I discussed the case with the resident and agree with the findings and plan as documented in the note. Any exceptions or clarifications are listed here: Acute Hypoxic Respiratory Failure 2/2 Pneumonia with altered mental status Clinically she is improved and at baseline; transfer to [facility] today. Congested heart failure with preserved EF She was slightly hypervolemic post fluid resuscitation with this is improved with increased Bumex dosing. Will return to home dosing of diuretics. Atrial Fibrillation Rate controlled Remains on Coumadin, although subtherapeutic today. Increased dose today with monitoring at [facility]. Significantly elevated sedimentation rate Seems to be a little bit disproportionate to her infection, although no other clear diagnosis for cause Would continue to trend as outpatient; differential diagnosis, in addition to infection, could be PMR, vasculitis, or malignancy. 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 Total Time Spent: Greater than 30 minutes (Nahid Valdes D.O.) Discharge Instructions Please refer to the electronic Patient Visit Report (Discharge Instructions) for additional information. (Antonio Toth MD) Additional Copies To [facility]; [place]
[2016-05-10] MEDS ORDERED: POTASSIUM CHLORIDE 10 MEQ TABCR PO ONE (15:00)
[2016-05-10 15:43] VITALS: BP 121/67; PULSE 57; TEMP 36.7; O2SAT 95
[2016-05-10 16:00] VITALS: O2SAT 95
[2016-05-10] MEDS: DIGOXIN IV 125 MCG in SYRINGE 9.5 ML IV SCH (16:37)
[2016-05-10] MEDS: WARFARIN SOD 3 MG TAB PO SCH (16:39)
[2016-05-10] MEDS: AZITHROMYCIN 250 MG TAB PO SCH (16:41)
[2016-05-12] MEDS ORDERED: ALENDRONATE SODIUM 70 MG TAB PO SCH (07:00)
[2016-06-07] MEDS ORDERED: PRD10 PO (10:17)
[2016-06-07] MEDS ORDERED: IPRASOL4 INH (10:17)
[2016-06-07] MEDS ORDERED: INSDGI SC ×2 (10:17→10:20)
[2016-06-07] MEDS ORDERED: BENZ100C7 PO (10:17)
[2016-06-07] MEDS ORDERED: GFNSR600 PO (10:17)
[2016-06-07] MEDS ORDERED: SPRIN PO (10:17)
[2016-06-07] MEDS ORDERED: ALBINS/ INH (10:17)
== END 2016-05-10 18:36 | DRG 189 ==
LOC: ENRESERVDT → CANRESERV → ENRESERVTM → ENRESERV → EDBD 00:56 → C.EDB 00:57 → C.2T 02:48 → C.MS4W 05-08 17:55
PROVIDERS: ADMIT Hospitalist; ATTEND Family Medicine
DX: J96.01 Acute respiratory failure with hypoxia (principal); J18.9 Pneumonia, unspecified organism; J44.0 Chronic obstructive pulmonary disease with (acute) lower respiratory infection; I50.30 Unspecified diastolic (congestive) heart failure; I25.10 Atherosclerotic heart disease of native coronary artery without angina pectoris; I48.2 Chronic atrial fibrillation; I12.9 Hypertensive chronic kidney disease with stage 1 through stage 4 chronic kidney disease, or unspecified chronic kidney disease; N18.2 Chronic kidney disease, stage 2 (mild); E78.5 Hyperlipidemia, unspecified; I73.9 Peripheral vascular disease, unspecified; F32.9 Major depressive disorder, single episode, unspecified; E11.21 Type 2 diabetes mellitus with diabetic nephropathy; Z79.4 Long term (current) use of insulin

== ENCOUNTER 2016-05-31 13:46 | Inpatient (IN) | payer OTHER ==
[~2016-05-31] VITALS: Ht 167.6 cm; Wt 88.7 kg
[2016-05-31] VITALS (8 sets, daily range): BP systolic 126–138; BP diastolic 65–79; PULSE 67–107; TEMP 36.7–37.8; O2SAT 90–96; BMI 33.2
[~2016-05-31 13:46] MED LIST changes: -AZIT500T PO; -MOML PO
--- NOTE | 2016-05-31 14:33 | EMERGENCY ROOM VISIT NOTE ---
History Report prepared by Bill: Shaunna Trujillo Under the Supervision of: Dr. Justo Danielle D.O. First contact with patient: 14:06 Chief Complaint: SHORTNESS OF BREATH Stated Complaint: SHORTNESS OF BREATH Nursing Triage Summary: [facility]B over the last few days, but wrose this morning. Denies vomiting. Coughing up yellow sputum. +rhonchi, ins & exp wheezing noted. History of Present Illness The patient is a 86 year old female who presents to the Emergency Room with complaints of worsening SOB starting a few days ago. The history is limited secondary to difficulty breathing and respiratory distress. Source of History: nursing staff History Limited By: AMS Onset: few days ago Position: other (global) Quality: other (SOB) Timing: worsening Review of Systems Unobtainable due to the patient's condition. 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 (16) PERIPH VASCULAR DIS NOS (17) SEPSIS Family History Unobtainable due to patient's condition Social History Smoking Status: Unknown if Ever Smoked Alcohol Use: none Drug Use: none Marital Status: Housing Status: longterm Occupation Status: retired Current/Historical Medications Scheduled Alendronate Sodium (Binosto), 70 MG PO WK Amlodipine (Norvasc), 5 MG PO DAILY Atorvastatin (Lipitor), 40 MG PO QPM Bepotastine Besilate (Bepreve), 1 DROP OPB BID Budesonide/Formoterol Fumarate (Symbicort 160/4.5 Inhaler ), 2 PUFFS INH BID Bumetanide (Bumetanide), 1.5 MG PO BID Calcium Carbonate-Vitamin D (Oscal 500/200 D-3), 1 TAB PO BID Cholecalciferol (Vitamin D3), 2,000 UNITS PO DAILY Clopidogrel (Plavix), 75 MG PO DAILY Digoxin (Digoxin), 0.125 MG PO QPM Escitalopram Oxalate (Lexapro), 10 MG PO DAILY Gabapentin (Neurontin), 900 MG PO TID Insulin Aspart (Novolog Penfill), 4 UNITS SC AC Insulin Aspart (Novolog), 100 SC DIRECTED Insulin Glargine (Lantus), 24 SC QPM Latanoprost (Xalatan 0.005% Oph Anna), 1 DROPS OPB HS Levothyroxine Sodium (Levothyroxine Sodium), 25 MCG PO Q2D Magnesium Oxide (Mag-Ox), 400 MG PO BID Metoprolol Tartrate (Lopressor) (Lopressor), 25 MG PO BID Multivitamin (Multivitamin), 1 TAB PO DAILY Oxygen (Oxygen), 3 LITER NA CONTINOUS Potassium Chloride (Potassium Chloride Er), 10 MEQ PO DAILY Ropinirole (Requip), 0.5 MG PO DAILY Saline (Saline Nasal [place]), 2 SPRAYS ADELA BID Umeclidinium [place] (Incruse Ellipta), 1 PUFF INH DAILY Warfarin Sodium (Coumadin), 4 MG PO DAILY Scheduled PRN Acetaminophen Tab (Tylenol), 650 MG PO Q6 PRN for Pain or Fever Albuterol Sulf (Proventil 0.083% 2.5MG/3ML), 2.5 MG INH Q4 PRN for COUGH/WHZ Bisacodyl (Bisac-Evac), 1 SUPP TX UD PRN for NO BM X4 DAYS Dextrose (Diabetic Use) (Insta-Glucose), 1 APPLN MT UD PRN for HYPOGLYCEMIA PROTOCOL Glucagon (Glucagon Emergency Kit), 1 MG IM UD PRN for HYPOGLYCEMIA Magnesium Hydroxide (Milk Of Magnesia), 30 ML PO UD PRN for NO BM X 9 SHIFTS Sodium Phosphate/Biphosphate (Fleet Enema), 1 EA TX UD PRN for NO RESULTS FROM SUPPOSITORY Allergies Coded Allergies: RICHARD Inhibitors (Verified Allergy, Unknown, unknown, 05/31/16) Aspirin (Verified Allergy, Unknown, unknown, 05/31/16) [place] Atenolol (Verified Allergy, Unknown, unknown; TAKES TOPROL XL W/O PROBLEM , 05/31/16) Cefprozil (Verified Allergy, Unknown, unknown, 05/31/16) TOLERATED ROCEPHIN 02/2014 FOR MULTIPLE DOSES Ciprofloxacin (Verified Allergy, Unknown, unknown, 05/31/16) Codeine (Verified Allergy, Unknown, unknown, 05/31/16) Fluticasone (Verified Allergy, Unknown, Unknown, 05/31/16) Furosemide (Verified Allergy, Unknown, ., 05/31/16) Hydrochlorothiazide (Verified Allergy, Unknown, unknown, 05/31/16) Hydrochlorothiazide w/Triamterene (Verified Allergy, Unknown, unknown, ) Ibuprofen (Verified Allergy, Unknown, unknown; HAS TAKEN ASA W/O PROBLEM, 05/31/16) Lisinopril (Verified Allergy, Unknown, unknown, 05/31/16) Meperidine (Verified Allergy, Unknown, unknown, 05/31/16) Niacinamide (Verified Allergy, Unknown, NICOTINAMIDE, 05/31/16) Penicillins (Verified Allergy, Unknown, UNKNOWN, 05/31/16) TOLERATED ROCEPHIN 02/2014 FOR MULTIPLE DOSES Quinolones (Verified Allergy, Unknown, 05/31/16) Rofecoxib (Verified Allergy, Unknown, unknown, 05/31/16) Salmeterol (Verified Allergy, Unknown, Unknown, 05/31/16) Spironolactone (Verified Allergy, Unknown, unknown, 05/31/16) Statins (Verified Allergy, Unknown, unknown, 05/31/16) Sulfa Antibiotics (Verified Allergy, Unknown, ., 05/31/16) Caffeine (Verified Adverse Reaction, Unknown, unknown, 05/31/16) Physical Exam Vital Signs Date Time Temp Pulse Resp B/P Pulse Ox O2 Delivery O2 Flow Rate FiO2 05/31/16 15:53 73 24 162/67 100 Non-Rebreather 10.0 05/31/16 14:58 83 26 174/70 98 Non-Rebreather 10.0 05/31/16 14:21 88 05/31/16 14:02 100 Non-Rebreather 10.0 05/31/16 14:02 38.7 90 28 150/57 81 Room Air 05/31/16 14:02 95 Non-Rebreather 6.0 Physical Exam GENERAL: Patient is listless and lethargic, responds to loud verbal commands. EYES: The conjunctivae are clear. The pupils are round and reactive. EARS, NOSE, MOUTH AND THROAT: The nose is without any evidence of any deformity. Mucous membranes are moist tongue is midline NECK: The neck is nontender and supple. RESPIRATORY: Diminished throughout with scattered rhonchi and rales. Respirations appear shallow and ineffective. CARDIOVASCULAR: Regular rate and rhythm noted to auscultation. Loud systolic murmur noted to auscultation. GASTROINTESTINAL: The abdomen is soft. Bowel sounds are present in all quadrants. Abdomen is nontender MUSCULOSKELETAL/EXTREMITIES: Right AKA noted. SKIN: There is no obvious evidence of any rash. There are no petechiae, pallor or cyanosis noted. Pedal edema noted in the left leg. NEUROLOGIC: Patient answers questions. Strength appears symmetrical in upper extremities. Cannot assess orientation at this time. Medical Decision & Procedures ER Provider Diagnostic Interpretation: X-ray results as stated below per interpretation by me and the radiologist. SINGLE VIEW CHEST CLINICAL HISTORY: Sepsis. Dyspnea. FINDINGS: An AP, portable, upright chest radiograph is compared to study dated 05/09/2016 and correlated with chest CT dated 12/22/2013. The examination is degraded by portable technique and patient rotation. A single lead cardiac pacemaker is unchanged in position. The heart is enlarged and there is atherosclerotic calcification of the thoracic aorta. There is pulmonary vascular congestion. There are multifocal bilateral airspace opacities. Small pleural effusions are suspected. Apical scarring is observed. There is no pneumothorax. The skeletal structures are osteopenic. The bony thorax is grossly intact. IMPRESSION: 1. Cardiomegaly and cardiac pacemaker. There is evidence of congestive failure. 2. There are multifocal bilateral airspace opacities. This could present pulmonary edema and/or multifocal pneumonia. Clinical correlation will be required. Radiographic follow-up to resolution is recommended. 3. Small pleural effusions are suspected. Electronically signed by: Howard Campos M.D. 05/31/2016 3:06 PM Dictated Date/Time: 05/31/2016 3:05 PM Laboratory Results 05/31/16 14:10 Red Blood Count 4.47, Mean Corpuscular Volume 82.8, Mean Corpuscular Hemoglobin 26.4, Mean Corpuscular Hemoglobin Concent 31.9, Mean Platelet Volume 10.3, Neutrophils (%) (Auto) 68.3, Lymphocytes (%) (Auto) 20.6, Monocytes (%) (Auto) 9.1, Eosinophils (%) (Auto) 1.2, Basophils (%) (Auto) 0.4, Neutrophils # (Auto) 5.79, Lymphocytes # (Auto) 1.74, Monocytes # (Auto) 0.77, Eosinophils # (Auto) 0.10, Basophils # (Auto) 0.03 05/31/16 14:10 Test 05/31/16 14:10 05/31/16 14:19 05/31/16 14:28 05/31/16 14:43 White Blood Count 8.46 K/uL (4.8-10.8) Red Blood Count 4.47 M/uL (4.2-5.4) Hemoglobin 11.8 g/dL (12.0-16.0) Hematocrit 37.0 % (37-47) Mean Corpuscular Volume 82.8 fL (80-100) Mean Corpuscular Hemoglobin 26.4 pg (25-34) Mean Corpuscular Hemoglobin Concent 31.9 g/dl (32-36) Platelet Count 216 K/uL (130-400) Mean Platelet Volume 10.3 fL (7.4-10.4) Neutrophils (%) (Auto) 68.3 % Lymphocytes (%) (Auto) 20.6 % Monocytes (%) (Auto) 9.1 % Eosinophils (%) (Auto) 1.2 % Basophils (%) (Auto) 0.4 % Neutrophils # (Auto) 5.79 K/uL (1.4-6.5) Lymphocytes # (Auto) 1.74 K/uL (1.2-3.4) Monocytes # (Auto) 0.77 K/uL (0.11-0.59) Eosinophils # (Auto) 0.10 K/uL (0-0.5) Basophils # (Auto) 0.03 K/uL (0-0.2) RDW Standard Deviation 50.7 fL (36.4-46.3) RDW Coefficient of Variation 16.7 % (11.5-14.5) Immature Granulocyte % (Auto) 0.4 % Immature Granulocyte # (Auto) 0.03 K/uL (0.00-0.02) Erythrocyte Sedimentation Rate 75 mm/hr (0-21) Prothrombin Time 44.4 SECONDS (9.0-12.0) Prothromb Time International Ratio 3.9 (0.9-1.1) Activated Partial Thromboplast Time 51.1 SECONDS (21.0-31.0) Partial Thromboplastin Ratio 2.0 Anion Gap 8.0 mmol/L (3-11) Est Creatinine Clear Calc Drug Dose 65.8 ml/min Estimated GFR () 92.5 Estimated GFR (Non- 79.8 BUN/Creatinine Ratio 27.4 (10-20) Calcium Level 9.6 mg/dl (8.5-10.1) Phosphorus Level 2.6 mg/dl (2.5-4.9) Magnesium Level 2.0 mg/dl (1.8-2.4) Total Bilirubin 0.7 mg/dl (0.2-1) Aspartate Amino Transf (AST/SGOT) 48 U/L (15-37) Alanine Aminotransferase (ALT/SGPT) 41 U/L (12-78) Alkaline Phosphatase 238 U/L (45-117) Total Creatine Kinase 89 U/L (26-192) Creatine Kinase MB 1.4 ng/ml (0.5-3.6) Creatine Kinase MB Ratio 1.6 (0-3.0) Troponin I 0.094 ng/ml (0-0.045) Pro-B-Type Natriuretic Peptide 3044 pg/ml (0-1800) Total Protein 7.6 gm/dl (6.4-8.2) Albumin 3.0 gm/dl (3.4-5.0) Globulin 4.6 gm/dl (2.5-4.0) Albumin/Globulin Ratio 0.7 (0.9-2) Lipase 78 U/L (73-393) Chemistry Specimen Hemolysis Bedside Lactic Acid Venous 1.40 mmol/L (0.90-1.70) Venous Blood pH 7.36 (7.36-7.41) Venous Blood Partial Pressure CO2 66 mmHg (38.0-50.0) Venous Blood Partial Pressure O2 29 mmHg Venous Blood HCO3 37 mmol/L Venous Blood Oxygen Saturation < 60.0 % Venous Blood Base Excess 9.0 mmol/L Urine Color YELLOW Urine Appearance CLEAR (CLEAR) Urine pH 5.5 (4.5-7.5) Urine Specific [place] 1.013 (1.000-1.030) Urine Protein NEG (NEG) Urine Glucose (UA) NEG (NEG) Urine Ketones NEG (NEG) Urine Occult Blood 2+ (NEG) Urine Nitrite NEG (NEG) Urine Bilirubin NEG (NEG) Urine Urobilinogen NEG (NEG) Urine Leukocyte Esterase NEG (NEG) Urine WBC (Auto) 1-5 /hpf (0-5) Urine RBC (Auto) 10-30 /hpf (0-4) Urine Hyaline Casts (Auto) 1-5 /lpf (0-5) Urine Epithelial Cells (Auto) 10-20 /lpf (0-5) Urine Bacteria (Auto) NEG (NEG) Laboratory results per my review. Medications Administered Medications (Trade) Dose Ordered Sig/Tariq Route Start Time Stop Time Status Last Admin Dose Admin Ceftriaxone Sodium 1 gm 1 gm NOW STAT IV 05/31/16 15:10 05/31/16 15:12 DC 05/31/16 15:20 1 GM Linezolid 600 mg/ Prmx 300 ml @ 300 mls/hr ONE STAT IV 05/31/16 15:10 05/31/16 16:09 DC 05/31/16 15:30 300 MLS/HR Azithromycin/ Dextrose (Zithromax IV/D5 250ml) 255 ml @ 125 mls/hr ONE ONCE IV 05/31/16 15:30 05/31/16 17:32 DC 05/31/16 15:53 125 MLS/HR ECG Indication: SOB/dyspnea Rate (beats per minute): 89 Rhythm: sinus rhythm Findings: 1st degree AV block, PVC, other (inferior and lateral ST depressions noted, inferior and lateral T-wave inversions noted.) Comparison ECG Date: Change: no significant change ED Course 1408: The patient was evaluated in room A12B. A complete history and physical examination were performed. 1510: Linezolid 600 mg/ Prmx 300 ml @ 300 mls/hr IV, Azithromycin 500 mg PO, Rocephin 1 gm IV. 1530: Azithromycin 500 mg/Dextrose 255 ml @ 125 mls/hr IV. 1531: I discussed the patient's case with Dr. Live, [facility] - hospitalist. The patient will be evaluated for further management. Medical Decision Prior records/ancillary studies reviewed. Triage Nursing notes reviewed. The patient's history was concerning for respiratory difficulties. Differential diagnosis: Etiologies such as infections, reactive airway disease, pneumonia, pneumothorax , COPD, CHF, cardiac ischemia, pulmonary embolism, musculoskeletal, gastrointestinal, as well as others were entertained. The patient is an 86-year-old female who presented to the emergency department for difficulty breathing. The patient has a history of stroke as well as aspiration pneumonia. She was seen in our facility at the end of last month for similar complaints. The patient was very lethargic and difficult to arouse. She was having significant difficulty breathing and her respirations appear shallow and ineffective. The patient was noted to be hypoxic prior to arrival by the longterm staff. She was treated with IV antibiotics in the emergency department. She was placed on supplemental oxygen. Her condition improved somewhat. I discussed the patient's laboratory and radiographic studies with the on-call [facility] hospitalist group. They have agreed to evaluate the patient in the emergency department for further management and disposition. The patient was treated with antibiotics that she is received in the past and she will also received hospital acquired pneumonia treatment coverage. The patient may have to have further documentation and discussion with family members about her overall CODE STATUS. The patient's condition appears to be deteriorating in a review of her most recent visits to our emergency department. I discussed this with the admitting team as well. Consults Time Called: 1528 Consulting Physician: LETICIA Martinez - hospitalist Returned Call: [phone] I discussed the patient's case with him. The patient will be evaluated for further management. Impression Primary Impression: Pneumonia Additional Impressions: Hypoxia Altered mental status Pulmonary edema Scribe Attestation The scribe's documentation has been prepared under my direction and personally reviewed by me in its entirety. I confirm that the note above accurately reflects all work, treatment, procedures, and medical decision making performed by me. Departure Information Dispostion Being Evaluated By Hospitalist Referrals Jane Victoria (PCP) Patient Instructions My [facility] Health Problem Qualifiers Primary Impression: Pneumonia Pneumonia type: due to unspecified organism Laterality: unspecified laterality Lung location: unspecified part of lung Qualified Codes: J18.9 - Pneumonia, unspecified organism Additional Impressions: Altered mental status Altered mental status type: unspecified Qualified Codes: R41.82 - Altered mental status, unspecified Pulmonary edema Chronicity: acute Qualified Codes: J81.0 - Acute pulmonary edema
[2016-05-31 14:40] LABS: BASO % 0.4 %; BASO ABS # 0.03 K/uL (0-0.2); COMPLETE YES; EOS % 1.2 %; IG% 0.4 %; LYMPH % 20.6 %; LYMPH ABS # 1.74 K/uL (1.2-3.4); MEAN CELL VOLUME 82.8 fL (80-100); MEAN CORPUSCULAR HEMOGLOBIN 26.4 pg (25-34); MEAN CORPUSCULAR HGB CONC 31.9 g/dl (32-36); MEAN PLATELET VOLUME 10.3 fL (7.4-10.4); MONO % 9.1 %; NEUT % 68.3 %; PLATELET COUNT 216 K/uL (130-400); RED BLOOD COUNT 4.47 M/uL (4.2-5.4); WHITE BLOOD COUNT 8.46 K/uL (4.8-10.8)
[2016-05-31 14:41] LABS: VENOUS BLOOD GAS PCO2 66 mmHg (38.0-50.0); VENOUS BLOOD GAS PO2 29 mmHg
[2016-05-31 14:42] LABS: VEN BLD GAS O2 SATURATION < 60.0 %
[2016-05-31] MEDS ORDERED: SODIENE PR (14:48)
[2016-05-31] MEDS ORDERED: GLGKIT IM (14:48)
[2016-05-31] MEDS ORDERED: LNX125 PO (14:48)
[2016-05-31] MEDS ORDERED: CALC200T PO (14:48)
[2016-05-31] MEDS ORDERED: MOML PO (14:48)
[2016-05-31] MEDS ORDERED: ALBINS/ INH (14:48)
[2016-05-31] MEDS ORDERED: DEXT40GE MT (14:48)
[2016-05-31] MEDS ORDERED: BISA10SU7 PR (14:48)
[2016-05-31 14:54] LABS: PROTHROMBIN TIME (PATIENT) 44.4 SECONDS (9.0-12.0)
[2016-05-31 14:55] LABS: INR 3.9 (0.9-1.1)
[2016-05-31 14:57] LABS: BUN/CREATININE RATIO 27.4 (10-20); CALCIUM 9.6 mg/dl (8.5-10.1); CREATININE 0.65 mg/dl (0.60-1.20); POTASSIUM 3.7 mmol/L (3.5-5.1)
[2016-05-31 15:01] LABS: ALB/GLOB RATIO 0.7 (0.9-2); CKMB/CK RATIO 1.6 (0-3.0); PHOSPHORUS 2.6 mg/dl (2.5-4.9)
--- NOTE | 2016-05-31 15:07 | DIAGNOSTIC IMAGING REPORT ---
SINGLE VIEW CHEST CLINICAL HISTORY: Sepsis. Dyspnea. FINDINGS: An AP, portable, upright chest radiograph is compared to study dated 05/09/2016 and correlated with chest CT dated 12/22/2013. The examination is degraded by portable technique and patient rotation. A single lead cardiac pacemaker is unchanged in position. The heart is enlarged and there is atherosclerotic calcification of the thoracic aorta. There is pulmonary vascular congestion. There are multifocal bilateral airspace opacities. Small pleural effusions are suspected. Apical scarring is observed. There is no pneumothorax. The skeletal structures are osteopenic. The bony thorax is grossly intact. IMPRESSION: 1. Cardiomegaly and cardiac pacemaker. There is evidence of congestive failure. 2. There are multifocal bilateral airspace opacities. This could present pulmonary edema and/or multifocal pneumonia. Clinical correlation will be required. Radiographic follow-up to resolution is recommended. 3. Small pleural effusions are suspected. Electronically signed by: Howard Campos M.D. 05/31/2016 3:06 PM Dictated Date/Time: 05/31/2016 3:05 PM
[2016-05-31] MEDS ORDERED: AZITHROMYCIN 250 MG TAB PO STA (15:10)
[2016-05-31] MEDS ORDERED: CEFTRIAXONE SOD INJ 1 GM ADDVIAL IV STA (15:10)
[2016-05-31] MEDS ORDERED: LINEZOLID / D5W 600 MG in PREMIXED IN D5W 300 ML IV STA (15:10)
[2016-05-31 15:18] LABS: URINE APPEARANCE CLEAR (CLEAR); URINE BILIRUBIN NEG (NEG); URINE COLOR YELLOW; URINE NITRITE NEG (NEG); URINE PH 5.5 (4.5-7.5); URINE SPECIFIC GRAVITY 1.013 (1.000-1.030); UROBILINOGEN NEG (NEG); ZZURINE CULT IF INDIC CATH NO
[2016-05-31 15:19] LABS: MANUAL MICROSCOPIC REQUIRED? NO; REVIEW REQ? NO
[2016-05-31] MEDS ORDERED: AZITHROMYCIN IV 500 MG in DEXTROSE 5% 250ML 250 ML IV ONE (15:30)
[2016-05-31] MEDS ORDERED: BUMETANIDE IV 1 MG in SYRINGE 0 ML IV ONE (16:15)
[2016-05-31] MEDS ORDERED: ONDANSETRON INJ 2 MG/ML 2 ML VIAL IV PRN (16:15)
[2016-05-31] MEDS ORDERED: MAGNESIUM HYDROXIDE SUSP 30 ML UDC PO PRN (16:15)
[2016-05-31] MEDS ORDERED: DEXTROSE 50% 50 ML SYR IV PRN (16:15)
[2016-05-31] MEDS ORDERED: GLUCAGON FOR INJ 1 MG VIAL SQ PRN (16:15)
[2016-05-31] MEDS ORDERED: ACETAMINOPHEN 325 MG TAB PO PRN (16:15)
[2016-05-31] MEDS ORDERED: GLUCOSE 40% GEL 15 GM TUBE PO PRN (16:15)
[2016-05-31] MEDS ORDERED: GLUCOSE 10 TABS/TUBE PO PRN (16:15)
[2016-05-31] MEDS ORDERED: BUMETANIDE IV 2 MG in SYRINGE 0 ML IV SCH (17:00)
--- NOTE | 2016-05-31 17:37 | History and Physical ---
History & Physical Date & Time of Service: May 31, 2016 at 17:13 Chief Complaint: Shortness Of Breath Primary Care Physician: Jane Victoria History of Present Illness Source: patient, hospital records Patient is 86 yo female familiar to our service who arrives from [facility] with complaints of SOB over the last few days, but became drastically worse this AM. Pt was confused and noted to be in respiratory distress. No hx was able to obtained by patient upon arrival to ER. Pt was hunched over with coarse breathing. Pt was recently admitted for PNA last month and did well with IV antibx. Upon arrival to ER pt noted to be febrile and tachypneic. CXR determined pulm congestion with likely bilateral infiltrates. 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 (15) PERIPH VASCULAR DIS NOS Status: Chronic (16) SEPSIS Status: Resolved Family History Unobtainable due to patient's condition Social History Smoking Status: Unknown if Ever Smoked Drug Use: none Marital Status: Housing status: assisted living Occupational Status: retired Immunizations History of Influenza Vaccine: No Influenza Vaccine Date: Jun 01, 2011 History of Tetanus Vaccine?: utd History of Pneumococcal: Yes Pneumococcal Date: Sep 02, 2012 History of Hepatitis B Vaccine: No Multi-Drug Resistant Organisms History of MDRO: No Allergies Coded Allergies: RICHARD Inhibitors (Verified Allergy, Unknown, unknown, 05/31/16) Aspirin (Verified Allergy, Unknown, unknown, 05/31/16) [place] Atenolol (Verified Allergy, Unknown, unknown; TAKES TOPROL XL W/O PROBLEM , 05/31/16) Cefprozil (Verified Allergy, Unknown, unknown, 05/31/16) TOLERATED ROCEPHIN 02/2014 FOR MULTIPLE DOSES Ciprofloxacin (Verified Allergy, Unknown, unknown, 05/31/16) Codeine (Verified Allergy, Unknown, unknown, 05/31/16) Fluticasone (Verified Allergy, Unknown, Unknown, 05/31/16) Furosemide (Verified Allergy, Unknown, ., 05/31/16) Hydrochlorothiazide (Verified Allergy, Unknown, unknown, 05/31/16) Hydrochlorothiazide w/Triamterene (Verified Allergy, Unknown, unknown, ) Ibuprofen (Verified Allergy, Unknown, unknown; HAS TAKEN ASA W/O PROBLEM, 05/31/16) Lisinopril (Verified Allergy, Unknown, unknown, 05/31/16) Meperidine (Verified Allergy, Unknown, unknown, 05/31/16) Niacinamide (Verified Allergy, Unknown, NICOTINAMIDE, 05/31/16) Penicillins (Verified Allergy, Unknown, UNKNOWN, 05/31/16) TOLERATED ROCEPHIN 02/2014 FOR MULTIPLE DOSES Quinolones (Verified Allergy, Unknown, 05/31/16) Rofecoxib (Verified Allergy, Unknown, unknown, 05/31/16) Salmeterol (Verified Allergy, Unknown, Unknown, 05/31/16) Spironolactone (Verified Allergy, Unknown, unknown, 05/31/16) Statins (Verified Allergy, Unknown, unknown, 05/31/16) Sulfa Antibiotics (Verified Allergy, Unknown, ., 05/31/16) Caffeine (Verified Adverse Reaction, Unknown, unknown, 05/31/16) Home Medications Scheduled Alendronate Sodium (Binosto), 70 MG PO WK Amlodipine (Norvasc), 5 MG PO DAILY Atorvastatin (Lipitor), 40 MG PO QPM Bepotastine Besilate (Bepreve), 1 DROP OPB BID Budesonide/Formoterol Fumarate (Symbicort 160/4.5 Inhaler ), 2 PUFFS INH BID Bumetanide (Bumetanide), 1.5 MG PO BID Calcium Carbonate-Vitamin D (Oscal 500/200 D-3), 1 TAB PO BID Cholecalciferol (Vitamin D3), 2,000 UNITS PO DAILY Clopidogrel (Plavix), 75 MG PO DAILY Digoxin (Digoxin), 0.125 MG PO QPM Escitalopram Oxalate (Lexapro), 10 MG PO DAILY Gabapentin (Neurontin), 900 MG PO TID Insulin Aspart (Novolog Penfill), 4 UNITS SC AC Insulin Aspart (Novolog), 100 SC DIRECTED Insulin Glargine (Lantus), 24 SC QPM Latanoprost (Xalatan 0.005% Oph Anna), 1 DROPS OPB HS Levothyroxine Sodium (Levothyroxine Sodium), 25 MCG PO Q2D Magnesium Oxide (Mag-Ox), 400 MG PO BID Metoprolol Tartrate (Lopressor) (Lopressor), 25 MG PO BID Multivitamin (Multivitamin), 1 TAB PO DAILY Oxygen (Oxygen), 3 LITER NA CONTINOUS Potassium Chloride (Potassium Chloride Er), 10 MEQ PO DAILY Ropinirole (Requip), 0.5 MG PO DAILY Saline (Saline Nasal [place]), 2 SPRAYS [place]LA BID Umeclidinium [place] (Incruse Ellipta), 1 PUFF INH DAILY Warfarin Sodium (Coumadin), 4 MG PO DAILY Scheduled PRN Acetaminophen Tab (Tylenol), 650 MG PO Q6 PRN for Pain or Fever Albuterol Sulf (Proventil 0.083% 2.5MG/3ML), 2.5 MG INH Q4 PRN for COUGH/WHZ Bisacodyl (Bisac-Evac), 1 SUPP [place] UD PRN for NO BM X4 DAYS Dextrose (Diabetic Use) (Insta-Glucose), 1 APPLN MT UD PRN for HYPOGLYCEMIA PROTOCOL Glucagon (Glucagon Emergency Kit), 1 MG IM UD PRN for HYPOGLYCEMIA Magnesium Hydroxide (Milk Of Magnesia), 30 ML PO UD PRN for NO BM X 9 SHIFTS Sodium Phosphate/Biphosphate (Fleet Enema), 1 EA [place] UD PRN for NO RESULTS FROM SUPPOSITORY Review of Systems Unable to be obtained due to distress Physical Exam Vital Signs Date Time Temp Pulse Resp B/P Pulse Ox O2 Delivery O2 Flow Rate FiO2 05/31/16 16:43 70 22 140/52 95 Nasal Cannula 4.0 05/31/16 15:53 73 24 162/67 100 Non-Rebreather 10.0 05/31/16 14:58 83 26 174/70 98 Non-Rebreather 10.0 05/31/16 14:21 88 05/31/16 14:02 100 Non-Rebreather 10.0 05/31/16 14:02 38.7 90 28 150/57 81 Room Air 05/31/16 14:02 95 Non-Rebreather 6.0 General Appearance: WD/WN, + moderate distress Head: normocephalic, atraumatic Neck: supple, no adenopathy Respiratory/Chest: + decreased breath sounds, + crackles, + rhonchi, + wheezing Cardiovascular: no gallop, no JVD Abdomen/GI: non tender, soft Back: normal inspection, no CVA tenderness Neurologic/Psych: alert, + disoriented Skin: warm/dry, no rash Diagnostics Laboratory Results Results Past 24 Hours Test 05/31/16 14:10 05/31/16 14:19 05/31/16 14:28 05/31/16 14:43 Range/Units White Blood Count 8.46 4.8-10.8 K/uL Red Blood Count 4.47 4.2-5.4 M/uL Hemoglobin 11.8 12.0-16.0 g/dL Hematocrit 37.0 37-47 % Mean Corpuscular Volume 82.8 80-100 fL Mean Corpuscular Hemoglobin 26.4 25-34 pg Mean Corpuscular Hemoglobin Concent 31.9 32-36 g/dl Platelet Count 216 130-400 K/uL Mean Platelet Volume 10.3 7.4-10.4 fL Neutrophils (%) (Auto) 68.3 % Lymphocytes (%) (Auto) 20.6 % Monocytes (%) (Auto) 9.1 % Eosinophils (%) (Auto) 1.2 % Basophils (%) (Auto) 0.4 % Neutrophils # (Auto) 5.79 1.4-6.5 K/uL Lymphocytes # (Auto) 1.74 1.2-3.4 K/uL Monocytes # (Auto) 0.77 0.11-0.59 K/uL Eosinophils # (Auto) 0.10 0-0.5 K/uL Basophils # (Auto) 0.03 0-0.2 K/uL RDW Standard Deviation 50.7 36.4-46.3 fL RDW Coefficient of Variation 16.7 11.5-14.5 % Immature Granulocyte % (Auto) 0.4 % Immature Granulocyte # (Auto) 0.03 0.00-0.02 K/uL Erythrocyte Sedimentation Rate 75 0-21 mm/hr Prothrombin Time 44.4 9.0-12.0 SECONDS Prothromb Time International Ratio 3.9 0.9-1.1 Activated Partial Thromboplast Time 51.1 21.0-31.0 SECONDS Partial Thromboplastin Ratio 2.0 Sodium Level 136 136-145 mmol/L Potassium Level 3.7 3.5-5.1 mmol/L Chloride Level 93 98-107 mmol/L Carbon Dioxide Level 35 21-32 mmol/L Anion Gap 8.0 3-11 mmol/L Blood Urea Nitrogen 18 7-18 mg/dl Creatinine 0.65 0.60-1.20 mg/dl Est Creatinine Clear Calc Drug Dose 65.8 ml/min Estimated GFR () 92.5 Estimated GFR (Non- 79.8 BUN/Creatinine Ratio 27.4 10-20 Random Glucose 141 70-99 mg/dl Calcium Level 9.6 8.5-10.1 mg/dl Phosphorus Level 2.6 2.5-4.9 mg/dl Magnesium Level 2.0 1.8-2.4 mg/dl Total Bilirubin 0.7 0.2-1 mg/dl Aspartate Amino Transf (AST/SGOT) 48 15-37 U/L Alanine Aminotransferase (ALT/SGPT) 41 12-78 U/L Alkaline Phosphatase 238 45-117 U/L Total Creatine Kinase 89 26-192 U/L Creatine Kinase MB 1.4 0.5-3.6 ng/ml Creatine Kinase MB Ratio 1.6 0-3.0 Troponin I 0.094 0-0.045 ng/ml Pro-B-Type Natriuretic Peptide 3044 0-1800 pg/ml Total Protein 7.6 6.4-8.2 gm/dl Albumin 3.0 3.4-5.0 gm/dl Globulin 4.6 2.5-4.0 gm/dl Albumin/Globulin Ratio 0.7 0.9-2 Lipase 78 73-393 U/L Chemistry Specimen Hemolysis Bedside Lactic Acid Venous 1.40 0.90-1.70 mmol/L Venous Blood pH 7.36 7.36-7.41 Venous Blood Partial Pressure CO2 66 38.0-50.0 mmHg Venous Blood Partial Pressure O2 29 mmHg Venous Blood HCO3 37 mmol/L Venous Blood Oxygen Saturation < 60.0 % Venous Blood Base Excess 9.0 mmol/L Urine Color YELLOW Urine Appearance CLEAR CLEAR Urine pH 5.5 4.5-7.5 Urine Specific [place] 1.013 1.000-1.030 Urine Protein NEG NEG Urine Glucose (UA) NEG NEG Urine Ketones NEG NEG Urine Occult Blood 2+ NEG Urine Nitrite NEG NEG Urine Bilirubin NEG NEG Urine Urobilinogen NEG NEG Urine Leukocyte Esterase NEG NEG Urine WBC (Auto) 1-5 0-5 /hpf Urine RBC (Auto) 10-30 0-4 /hpf Urine Hyaline Casts (Auto) 1-5 0-5 /lpf Urine Epithelial Cells (Auto) 10-20 0-5 /lpf Urine Bacteria (Auto) NEG NEG Test 05/31/16 16:21 Range/Units Microbiology Results 05/31/16 Blood Culture, Received Pending 05/31/16 Blood Culture, Received Pending Impression Assessment and Plan Pt is a 86 yo female who presents from [facility] with worsening sob x 3 days Sepsis likely secondary to HCAP. Will place on rocephin, aztreonam, and azithromycin. Blood cx x 2 and sputum cx if possible. ABG concerning for elev CO2. Will initiate BiPAP tonight with setting of 10/5 and check ABG. Pt febrile in ER, but no leukocytosis present. Placed on duonebs. Due to likely underlying congestion as well, will convert to IV bumex at 2 mg IV BID. CXR determined congestion and bilateral infiltrates. Will also get ECHO as pt has hx of severe . Afib with supratherapeutic INR, rate controlled, hold coumadin at this time. NSTEMI with mildly elev trops likely from sepsis, cont to trend, EKG with incomplete RBBB, unchanged from prev Diabetes mellitus--Cont lantus and ISS. Accuchecks Hypertension--Cont amlodipine 5 mg by mouth daily, metoprolol tartrate 25 mg by mouth twice a day. Hypercholesterolemia--Cont atorvastatin 40 mg by mouth daily. Depression--Cont Lexapro 10 mg by mouth daily. Peripheral neuropathy--hold gabapentin 900 mg by mouth 3 times a day. Glaucoma--Cont Xalatan 1 drop OPB at bedtime. Hypothyroidism--Cont levothyroxine sodium 25 g by mouth every 2 days, will obtain TSH Restless leg syndrome--Cont Requip 0.5 mg by mouth daily DVT ppx with heparin Pt is FULL CODE VTE Prophylaxis VTE Risk Assessment Done? Y/N: Yes Risk Level: Moderate
[2016-05-31] MEDS ORDERED: DIGOXIN 0.125 MG TAB PO SCH (18:00)
[2016-05-31] MEDS ORDERED: BUMETANIDE IV 2 MG in SYRINGE 0 ML IV ONE (18:15)
[2016-05-31] MEDS ORDERED: NURSING VERBAL MED ORDER ONE ×3 (18:30→23:30)
[2016-05-31] MEDS: DIGOXIN IV 125 MCG in SYRINGE 9.5 ML IV SCH (19:20)
[2016-05-31] MEDS: AZTREONAM IV 1,000 MG in DEXTROSE 5% 100ML 100 ML IV SCH (19:24)
[2016-05-31 19:25] LABS: ARTERIAL BLD GAS O2 SATURATION 93.9 % (90-95); ARTERIAL BLOOD GAS BASE EXCESS 9.2 mEq/L (-9-1.8); ARTERIAL BLOOD GAS HCO3 35 mmol/L (19-24); ARTERIAL BLOOD GAS PO2 72 mmHg (80-95); ARTERIAL BLOOD GAS pH 7.45 (7.35-7.45)
[2016-05-31 19:26] LABS: ALLEN TEST POS (POS); O2 ADMINISTRATION 4L O2
[2016-05-31] MEDS ORDERED: SODIUM CHLORIDE 0.65% NA SOLN 45 ML (OCEAN) ONE (19:36)
[2016-05-31] MEDS: SODIUM CHLORIDE 0.65% NA SOLN 45 ML (OCEAN) NAE SCH (19:41)
[2016-05-31] MEDS: LATANOPROST 0.005% OP SOLN 2.5 ML BTL OPB SCH (19:41)
[2016-05-31] MEDS: ALBUT/IPRATROP 3MG/0.5MG NEB 3 ML VIAL INH SCH ×2 (19:57→22:33)
[2016-05-31] MEDS ORDERED: INSULIN GLARGINE SOLOSTAR 100 UNITS/ML 3 ML PEN SC ONE (20:45)
[2016-05-31] MEDS: METOPROLOL TARTRATE 25 MG TAB PO SCH (21:00)
[2016-05-31] MEDS: GABAPENTIN 300 MG CAP PO SCH (21:00)
[2016-05-31] MEDS: MAGNESIUM OXIDE 400 MG TAB PO SCH (21:00)
[2016-05-31] MEDS: BUDESONIDE/FORMOTEROL FUMARATE 160/4.5 60 PUFFS/INHALER INH SCH (21:00)
[2016-05-31] MEDS: ATORVASTATIN 40 MG TAB PO SCH (21:00)
[2016-05-31] MEDS ORDERED: INSULIN GLARGINE SOLOSTAR 100 UNITS/ML 3 ML PEN SC SCH (21:00)
[2016-05-31] MEDS: INSULIN ASPART 100 UNITS/ML 3 ML PEN SC SCH (21:08)
[2016-05-31] MEDS ORDERED: HEPARIN SOD 5000 UNIT/0.5 ML CARP SQ SCH (22:00)
[2016-05-31] MEDS ORDERED: ALBUMIN HUMAN 25% 12.5 GM/50 ML VIAL IV STA (23:20)
[2016-05-31] MEDS: METOPROLOL TARTRATE 1 MG/ML VIAL IV. SCH (23:37)
[2016-06-01] VITALS (16 sets, daily range): BP systolic 123–158; BP diastolic 60–75; PULSE 66–88; TEMP 36.8–37.9; O2SAT 83–100
[2016-06-01] MEDS ORDERED: BUMETANIDE IV 2 MG in SYRINGE 0 ML IV STA (00:59)
[2016-06-01] MEDS ORDERED: NURSING VERBAL MED ORDER ONE ×3 (01:00→21:00)
[2016-06-01] MEDS: AZTREONAM IV 1,000 MG in DEXTROSE 5% 100ML 100 ML IV SCH ×3 (04:09→19:39)
[2016-06-01] MEDS: METOPROLOL TARTRATE 1 MG/ML VIAL IV. SCH ×5 (04:10→19:40)
[2016-06-01 06:13] LABS: BASO % 0.2 %; BASO ABS # 0.01 K/uL (0-0.2); COMPLETE YES; IG% 0.2 %; LYMPH % 7.4 %; LYMPH ABS # 0.38 K/uL (1.2-3.4); MEAN CELL VOLUME 83.3 fL (80-100); MEAN CORPUSCULAR HEMOGLOBIN 26.2 pg (25-34); MEAN CORPUSCULAR HGB CONC 31.5 g/dl (32-36); MEAN PLATELET VOLUME 10.2 fL (7.4-10.4); MONO % 11.8 %; NEUT % 80.4 %; PLATELET COUNT 172 K/uL (130-400); RED BLOOD COUNT 4.08 M/uL (4.2-5.4); WHITE BLOOD COUNT 5.16 K/uL (4.8-10.8)
[2016-06-01 06:23] LABS: INR 3.4 (0.9-1.1); PROTHROMBIN TIME (PATIENT) 37.8 SECONDS (9.0-12.0)
[2016-06-01 06:51] LABS: BUN/CREATININE RATIO 22.9 (10-20); CALCIUM 8.3 mg/dl (8.5-10.1); CREATININE 0.63 mg/dl (0.60-1.20)
[2016-06-01 06:56] LABS: ALB/GLOB RATIO 0.7 (0.9-2)
--- NOTE | 2016-06-01 08:18 | DIAGNOSTIC IMAGING REPORT ---
CHEST ONE VIEW PORTABLE CLINICAL HISTORY: Increasing shortness of breath. COMPARISON STUDY: Chest radiograph May 31, 2016. FINDINGS: A left subclavian pacemaker is in place. There is no pneumothorax. No pleural effusions identified. Mild cardiomegaly is unchanged. Mediastinal contours are normal. Interstitial thickening and bilateral airspace opacities persists. IMPRESSION: Persistent interstitial thickening and bilateral opacities, including left midlung airspace opacity, which may reflect pneumonia or pulmonary edema. Radiographic follow up to ensure resolution is recommended. Electronically signed by: Sajan Rust M.D. 06/01/2016 8:16 AM Dictated Date/Time: 06/01/2016 8:15 AM
[2016-06-01] MEDS ORDERED: NURSING VERBAL MED ORDER SCH (08:30)
[2016-06-01] MEDS: INSULIN ASPART 100 UNITS/ML 3 ML PEN SC SCH ×4 (08:38→21:25)
[2016-06-01] MEDS: BUMETANIDE IV 2 MG in SYRINGE 0 ML IV SCH ×2 (08:42→16:34)
[2016-06-01] MEDS: SODIUM CHLORIDE 0.65% NA SOLN 45 ML (OCEAN) NAE SCH ×2 (08:48→19:30)
[2016-06-01] MEDS: BUDESONIDE/FORMOTEROL FUMARATE 160/4.5 60 PUFFS/INHALER INH SCH ×2 (08:48→19:34)
[2016-06-01] MEDS: ESCITALOPRAM OXALATE 10 MG TAB PO SCH (08:48)
[2016-06-01] MEDS: MAGNESIUM OXIDE 400 MG TAB PO SCH ×2 (08:49→19:34)
[2016-06-01] MEDS: MULTIVITAMIN TAB PO SCH (08:49)
[2016-06-01] MEDS: AMLODIPINE BESYLATE 5 MG TAB PO SCH (08:50)
[2016-06-01] MEDS: CLOPIDOGREL BISULFATE 75 MG TAB PO SCH (08:50)
[2016-06-01] MEDS: GABAPENTIN 300 MG CAP PO SCH ×3 (08:50→19:34)
[2016-06-01] MEDS: ROPINIROLE HCL 1 MG TAB PO SCH (08:51)
[2016-06-01] MEDS ORDERED: WARFARIN SOD 4 MG TAB PO SCH (09:00)
[2016-06-01] MEDS: POTASSIUM CHLR 10MEQ / WTR IV SCH ×4 (10:17→16:34)
[2016-06-01] MEDS: ALBUT/IPRATROP 3MG/0.5MG NEB 3 ML VIAL INH SCH ×3 (11:17→19:18)
--- NOTE | 2016-06-01 13:20 | ECHOCARDIOGRAM REPORT ---
*NOTICE TO RECEIVING [employer] This information is strictly Confidential and protected under [place] law. [place] law prohibits you from making any further disclosure of this information unless further disclosure is expressly permitted by the written consent of the person to whom it pertains or is authorized by law. A general authorization for the release of medical or other information is not sufficient for this purpose. Hospital accepts no responsibility if the information is made available to any other person, INCLUDING THE PATIENT. Interpretation Summary * Name: ASTON PRETTY Study Date: 06/01/2016 09:47 AM BP: 136/69 mmHg * Patient Location: C.2T\S\E216\S\1 HR: 63 * : 1930 (M/d/yyy) Gender: Female Height: 62 in * Age: 86 yrs Ethnicity: CA Weight: 211 lb * Ordering Physician: Coy Live * Referring Physician: Self, Referred * Performed By: Nick Franks RDCS * * Account#[id number] * Reason For Study: Alt of consciousness * BSA: 2.0 m2 * -- Conclusions -- * The left ventricle is normal in size. * There is moderate concentric left ventricular hypertrophy. * Left ventricular systolic function is normal. * Ejection Fraction = 65-70%. * Wall motion is limtted but no obvious regional wall motion abnormality. * The right ventricle is normal in size and function. * The right ventricular systolic function is normal as assessed by tricuspid annular plane systolic excursion (TAPSE) (normal >1.5 cm). * The left atrium is severely dilated. * Heavily calcified AoV with sevre aortic stenosis (DI 0.21 and MG 33 mm/hg) * Mild aortic regurgitation * The gradient may be underestimated due to the study being performed seated. * There is severe mitral annular calcification. 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 * There is mild to moderate tricuspid regurgitation. * Right ventricular systolic pressure is elevated at >60mmHg. * Dilated inferior vena cava with reduced collapsability with sniff indicates an elevated right atrial pressure of 15 mmHg * E to e' ratio of 20 suggesting elevated LA pressures. * Compared to 12/2013 no significant change. Procedure Details * A complete two-dimensional transthoracic echocardiogram was performed (2D, M-mode, Doppler and color flow Doppler). * The study was technically adequate. Left Ventricle * The left ventricle is normal in size. * There is moderate concentric left ventricular hypertrophy. * Left ventricular systolic function is normal. * Ejection Fraction = 65-70%. * Wall motion is limtted but no obvious regional wall motion abnormality. Right Ventricle * The right ventricle is normal in size and function. * The right ventricular systolic function is normal as assessed by tricuspid annular plane systolic excursion (TAPSE) (normal >1.5 cm). Atria * The left atrium is severely dilated. * The right atrium is mildly dilated. Mitral Valve * There is severe mitral annular calcification. 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 Tricuspid Valve * The tricuspid valve is not well visualized, but is grossly normal. * There is mild to moderate tricuspid regurgitation. * Right ventricular systolic pressure is elevated at >60mmHg. Aortic Valve * Heavily calcified AoV with sevre aortic stenosis (DI 0.21 and MG 33 mm/hg) Mild aortic regurgitation The gradient may be underestimated due to the study being performed seated. Pulmonic Valve * The pulmonic valve is not well visualized. * There is no pulmonic valvular regurgitation. Great Vessels * There is aortic root sclerosis/calcification. Pericardium/Pleural * There is no pericardial effusion. Great Vessels * Dilated inferior vena cava with reduced collapsability with sniff indicates an elevated right atrial pressure of 15 mmHg Left Ventricular Diastolic Function * Diastolic dysfunction, Grade II (pseudonormalization pattern). * E to e' ratio of 20 suggesting elevated LA pressures. MMode 2D Measurements and Calculations IVSd 1.5 cm IVSs 1.9 cm LVIDd 4.3 cm LVIDs 2.9 cm LVPWd 1.5 cm LVPWs 1.9 cm IVS/LVPW 1.0 FS 32.8 % EDV(Teich) 83.8 ml ESV(Teich) 32.3 ml EF(Teich) 61.5 % EDV(cubed) 80.5 ml ESV(cubed) 24.4 ml EF(cubed) 69.6 % % IVS thick 24.3 % % LVPW thick 29.9 % LV mass(C)d 257.9 grams LV mass(C)dI 131.9 grams/m\S\2 LV mass(C)s 230.2 grams LV mass(C)sI 117.7 grams/m\S\2 SV(Teich) 51.6 ml SI(Teich) 26.4 ml/m\S\2 SV(cubed) 56.0 ml SI(cubed) 28.6 ml/m\S\2 Ao root diam 3.2 cm Ao root area 7.9 cm\S\2 ACS 0.82 cm LA dimension 4.6 cm asc Aorta Diam 2.9 cm LA/Ao 1.4 LVOT diam 1.9 cm LVOT area 2.7 cm\S\2 LVAd ap4 19.4 cm\S\2 LVLd ap4 6.5 cm EDV(MOD-sp4) 47.0 ml LVAs ap4 11.6 cm\S\2 LVLs ap4 6.4 cm ESV(MOD-sp4) 18.0 ml EF(MOD-sp4) 61.7 % LVAd ap2 17.1 cm\S\2 LVLd ap2 6.3 cm EDV(MOD-sp2) 38.0 ml LVAs ap2 9.8 cm\S\2 LVLs ap2 5.6 cm ESV(MOD-sp2) 14.0 ml EF(MOD-sp2) 63.2 % SV(MOD-sp4) 29.0 ml SI(MOD-sp4) 14.8 ml/m\S\2 SV(MOD-sp2) 24.0 ml SI(MOD-sp2) 12.3 ml/m\S\2 Doppler Measurements and Calculations MV E max yan 161.7 cm/sec MV V2 max 192.0 cm/sec MV max PG 14.7 mmHg MV V2 mean 85.8 cm/sec MV mean PG 4.0 mmHg MV V2 VTI 47.6 cm MVA(VTI) 1.1 cm\S\2 MV dec time 0.31 sec Ao V2 max 383.1 cm/sec Ao max PG 58.7 mmHg Ao max PG (full) 56.0 mmHg Ao V2 mean 266.7 cm/sec Ao mean PG 33.0 mmHg Ao mean PG (full) 31.6 mmHg Ao V2 VTI 85.5 cm JIMMY(I,A) 0.59 cm\S\2 JIMMY(I,D) 0.59 cm\S\2 JIMMY(V,A) 0.58 cm\S\2 JIMMY(V,D) 0.58 cm\S\2 LV V1 max PG 2.7 mmHg LV V1 mean PG 1.4 mmHg LV V1 max 82.1 cm/sec LV V1 mean 52.2 cm/sec LV V1 VTI 18.5 cm SV(Ao) 672.5 ml SI(Ao) 343.9 ml/m\S\2 SV(LVOT) 50.5 ml SI(LVOT) 25.8 ml/m\S\2 PA V2 max 146.6 cm/sec PA max PG 8.6 mmHg TR max yan 369.2 cm/sec
[2016-06-01] MEDS: CEFTRIAXONE SOD INJ 1 GM in DEXTROSE 5% ADD-VANTAGE 50ML 50 ML IV SCH (14:05)
--- NOTE | 2016-06-01 15:14 | Progress Note ---
Subjective Date of Service: Jun 01, 2016. Subjective Pt evaluation today including: physical exam, chart review, lab review, review of studies, review of inpatient medication list Voiding: hamilton catheter in place Pt has AMS unable to provide her current symptoms. pt open eyes to loud voice and tactile stimuli. Currently not in any acute distress. Problem List Medical Problems: (1) Altered mental status Status: Acute (2) Hypoxia Status: Acute (3) Hypoxia Status: Acute (4) Pneumonia Status: Acute (5) Pulmonary edema Status: Acute Review of Systems Constitutional: + see HPI (Unable to provide review of symtems, becuase of AMS. ) Medications Medications (Trade) Dose Ordered Sig/Tariq Route Start Time Stop Time Status Last Admin Dose Admin Azithromycin/ Dextrose (Zithromax IV/D5 250ml) 255 ml @ 125 mls/hr ONE ONCE IV 05/31/16 15:30 05/31/16 17:32 DC 05/31/16 15:53 125 MLS/HR Amlodipine Besylate (Norvasc Tab) 5 mg DAILY PO 06/01/16 09:00 07/01/16 08:59 06/01/16 08:50 5 MG Budesonide/ Formoterol Fumarate (Symbicort 160/ 4.5 Inh) 2 puffs BID INH 05/31/16 21:00 06/30/16 20:59 06/01/16 08:48 2 PUFFS Clopidogrel Bisulfate (plAVix TAB) 75 mg DAILY PO 06/01/16 09:00 07/01/16 08:59 06/01/16 08:50 75 MG Escitalopram Oxalate (Lexapro Tab) 10 mg DAILY PO 06/01/16 09:00 07/01/16 08:59 06/01/16 08:48 10 MG Gabapentin (Neurontin Cap) 900 mg TID PO 05/31/16 21:00 06/30/16 20:59 06/01/16 08:50 900 MG Latanoprost (Xalatan Oph Soln) 1 drops HS OPB 05/31/16 21:00 06/30/16 20:59 05/31/16 19:41 1 DROPS Magnesium Oxide (Mag-Ox Tab) 400 mg BID PO 05/31/16 21:00 06/30/16 20:59 06/01/16 08:49 400 MG Multivitamins (Multivitamin Tab) 1 tab DAILY PO 06/01/16 09:00 07/01/16 08:59 06/01/16 08:49 1 TAB Ropinirole HCl (Requip Tab) 0.5 mg DAILY PO 06/01/16 09:00 07/01/16 08:59 06/01/16 08:51 0.5 MG Sodium Chloride ([place] Nasal [place]) 2 sprays BID ADELA 05/31/16 21:00 06/30/16 20:59 06/01/16 08:48 2 SPRAYS Insulin Aspart SLIDING SCALE If C... ACHS SC 05/31/16 21:00 06/30/16 20:59 05/31/16 21:08 2 UNITS Ceftriaxone Sodium 1 gm/ Dextrose 50 ml @ 100 mls/hr Q24H IV 06/01/16 14:00 06/06/16 14:29 06/01/16 14:05 100 MLS/HR Aztreonam/Dextrose (Azactam IV/D5 100ml) 110 ml @ 100 mls/hr Q8H IV 05/31/16 20:00 06/07/16 19:59 06/01/16 11:55 100 MLS/HR Albuterol/ Ipratropium 3 ml 3 ml QIDR INH 05/31/16 20:00 06/30/16 19:59 06/01/16 14:33 3 ML Bumetanide 2 mg/ Syringe 8 ml @ 4 mls/min BID@0900,1700 IV 06/01/16 09:00 07/01/16 08:59 06/01/16 08:42 4 MLS/MIN Bumetanide 2 mg/ Syringe 8 ml @ 4 mls/min NOW ONCE IV 05/31/16 18:15 05/31/16 18:16 DC 05/31/16 18:46 4 MLS/MIN Digoxin/Syringe (Digoxin IV/ Syringe) 10 ml @ 2 mls/min DAILY@16 IV 05/31/16 19:00 06/30/16 18:59 05/31/16 19:20 2 MLS/MIN Insulin Glargine (Lantus Solostar Pen) 10 unit NOW ONCE SC 05/31/16 20:45 05/31/16 20:46 DC 3/25/17 21:08 10 UNIT Albumin Human (Albumin 25%) 25 gm NOW STAT IV 05/31/16 23:20 05/31/16 23:21 DC 05/31/16 23:33 25 GM Metoprolol Tartrate 2.5 mg 2.5 mg Q4 IV. 06/01/16 00:00 07/01/16 00:00 06/01/16 12:00 2.5 MG Bumetanide 2 mg/ Syringe 8 ml @ 4 mls/min NOW STAT IV 06/01/16 00:59 06/01/16 01:00 DC 06/01/16 01:12 4 MLS/MIN Potassium Chloride/Prmx (Kcl 10 Meq / Wtr/Premixed Water) 100 ml @ 100 mls/hr 1000,1100,1200,1300 IV 06/01/16 10:00 06/01/16 16:00 06/01/16 13:43 100 MLS/HR Objective Vital Signs Date Time Temp Pulse Resp B/P Pulse Ox O2 Delivery O2 Flow Rate FiO2 06/01/16 14:33 88 16 96 BiPAP/CPAP 40 06/01/16 12:00 BiPAP 40 06/01/16 12:00 37.8 70 20 134/64 100 BiPAP 06/01/16 12:00 63 06/01/16 11:17 88 16 97 BiPAP/CPAP 40 06/01/16 08:42 158/74 06/01/16 08:39 71 06/01/16 08:11 37.8 77 20 97 BiPAP 06/01/16 08:00 BiPAP 40 06/01/16 06:58 88 16 95 BiPAP/CPAP 40 06/01/16 05:45 37.3 06/01/16 04:17 37.7 66 90 BiPAP 40 06/01/16 04:10 73 06/01/16 04:00 BiPAP 40 06/01/16 03:42 37.9 72 22 136/69 96 BiPAP 06/01/16 01:18 83 95 40 06/01/16 00:50 85 22 141/70 83 Nasal Cannula 6.0 Humidified Oxygen 05/31/16 23:59 Nasal Cannula 3.0 Humidified Oxygen 05/31/16 23:37 113 05/31/16 23:10 36.7 107 20 126/70 92 Nasal Cannula 3.0 Humidified Oxygen 05/31/16 22:59 101 96 Nasal Cannula 3.0 Humidified Oxygen 05/31/16 22:52 95 Nasal Cannula 4.0 Humidified Oxygen 05/31/16 22:33 90 16 95 Nasal Cannula 6.0 05/31/16 22:23 92 90 Nasal Cannula 6.0 Humidified Oxygen 05/31/16 20:00 Nasal Cannula 3.0 Humidified Oxygen 05/31/16 19:58 69 16 94 Nasal Cannula 3.0 05/31/16 19:25 36.7 99 16 138/79 95 Nasal Cannula 3.0 05/31/16 19:20 100 05/31/16 17:20 37.8 67 18 130/65 92 Nasal Cannula 4.0 05/31/16 16:43 70 22 140/52 95 Nasal Cannula 4.0 05/31/16 15:53 73 24 162/67 100 Non-Rebreather 10.0 Physical Exam Comments: General Appearance: WD/WN, + mild distress Head: normocephalic, atraumatic Neck: supple, no adenopathy Respiratory/Chest: + decreased breath sounds, + crackles, + rhonchi, + wheezing Cardiovascular: no gallop, no JVD Abdomen/GI: non tender, soft Back: normal inspection, no CVA tenderness Neurologic/Psych: alert, + disoriented Skin: warm/dry, no rash Laboratory Results Last 24 Hours Test 05/31/16 17:34 05/31/16 19:01 05/31/16 19:07 05/31/16 20:09 Bedside Glucose 225 mg/dl 232 mg/dl Procalcitonin 0.13 ng/mL Thyroid Stimulating Hormone (TSH) 0.398 uIu/ml Arterial Blood pH 7.45 Arterial Blood Partial Pressure CO2 51 mmHg Arterial Blood Partial Pressure O2 72 mmHg Arterial Blood HCO3 35 mmol/L Arterial Blood Oxygen Saturation 93.9 % Arterial Blood Base Excess 9.2 mEq/L Arterial Blood Gas Delivery 4L O2 Yifan Test POS Test 05/31/16 22:14 06/01/16 05:52 06/01/16 06:34 06/01/16 11:22 Troponin I 0.123 ng/ml 0.167 ng/ml White Blood Count 5.16 K/uL Red Blood Count 4.08 M/uL Hemoglobin 10.7 g/dL Hematocrit 34.0 % Mean Corpuscular Volume 83.3 fL Mean Corpuscular Hemoglobin 26.2 pg Mean Corpuscular Hemoglobin Concent 31.5 g/dl Platelet Count 172 K/uL Mean Platelet Volume 10.2 fL Neutrophils (%) (Auto) 80.4 % Lymphocytes (%) (Auto) 7.4 % Monocytes (%) (Auto) 11.8 % Eosinophils (%) (Auto) 0.0 % Basophils (%) (Auto) 0.2 % Neutrophils # (Auto) 4.15 K/uL Lymphocytes # (Auto) 0.38 K/uL Monocytes # (Auto) 0.61 K/uL Eosinophils # (Auto) 0.00 K/uL Basophils # (Auto) 0.01 K/uL RDW Standard Deviation 50.7 fL RDW Coefficient of Variation 16.6 % Immature Granulocyte % (Auto) 0.2 % Immature Granulocyte # (Auto) 0.01 K/uL Prothrombin Time 37.8 SECONDS Prothromb Time International Ratio 3.4 Sodium Level 139 mmol/L Potassium Level 3.0 mmol/L Chloride Level 95 mmol/L Carbon Dioxide Level 36 mmol/L Anion Gap 8.0 mmol/L Blood Urea Nitrogen 14 mg/dl Creatinine 0.63 mg/dl Est Creatinine Clear Calc Drug Dose 72.3 ml/min Estimated GFR () 93.5 Estimated GFR (Non- 80.6 BUN/Creatinine Ratio 22.9 Random Glucose 168 mg/dl Calcium Level 8.3 mg/dl Total Bilirubin 0.6 mg/dl Aspartate Amino Transf (AST/SGOT) 34 U/L Alanine Aminotransferase (ALT/SGPT) 29 U/L Alkaline Phosphatase 177 U/L Total Protein 6.9 gm/dl Albumin 2.8 gm/dl Globulin 4.1 gm/dl Albumin/Globulin Ratio 0.7 Bedside Glucose 156 mg/dl 150 mg/dl Test 06/01/16 12:19 Troponin I 0.139 ng/ml Assessment and Plan 1) Sepsis likely secondary to HCAP. - No white count and neutrophil shift.T 37.8F - Cont rocephin, aztreonam, and azithromycin. - Blood cx pending, and urine cx preliminary neg - Primary resp alkalosis with full resp compensation. - Cont BiPAP with setting of 10/5. - Cont duonebs. - Chest congestion as well, Cont IV bumex at 2 mg IV BID. - Echo pending - X-ray chest 06/01 Persistent interstitial thickening and bilateral opacities, including left midlung airspace opacity, which may reflect pneumonia or pulmonary edema. Radiographic follow up to ensure resolution is recommended 2) Afib with subtherapeutic INR, rate controlled, hold Coumadin at this time. - INR today 3.4, no bleeding 3) NSTEMI with mildly elev trops likely from sepsis, cont to trend, EKG with incomplete RBBB, unchanged from prev - will monitor two more sets of troponin q8 hr 4) Hypokalemia - replaced, repeat Bmp in am. 5) Diabetes mellitus - Cont lantus and ISS. Accuchecks 6) Hypertension - Cont amlodipine 5 mg by mouth daily, metoprolol tartrate 25 mg by mouth twice a day. 7) Hypercholesterolemia - Cont atorvastatin 40 mg by mouth daily. 8) Depression - Cont Lexapro 10 mg by mouth daily. 9) Peripheral neuropathy - hold gabapentin 900 mg by mouth 3 times a day. 10) Glaucoma - Cont Xalatan 1 drop OPB at bedtime. 11) Hypothyroidism - Cont levothyroxine sodium 25 g by mouth every 2 days, will obtain TSH 12) Restless leg syndrome--Cont Requip 0.5 mg by mouth daily DVT ppx with heparin Pt is FULL CODE Continued [facility] stay due to: multiple IV medications needed Discharge planning: snf facility
[2016-06-01] MEDS: DIGOXIN IV 125 MCG in SYRINGE 9.5 ML IV SCH (16:36)
[2016-06-01] MEDS: AZITHROMYCIN IV 500 MG in DEXTROSE 5% 250ML 250 ML IV SCH (16:36)
[2016-06-01] MEDS: ATORVASTATIN 40 MG TAB PO SCH (19:34)
[2016-06-01] MEDS: LATANOPROST 0.005% OP SOLN 2.5 ML BTL OPB SCH (19:35)
[2016-06-01] MEDS ORDERED: INSULIN GLARGINE SOLOSTAR 100 UNITS/ML 3 ML PEN SC ONE (21:30)
[2016-06-02] VITALS (10 sets, daily range): BP systolic 92–123; BP diastolic 54–71; PULSE 65–97; TEMP 36.4–37.9; O2SAT 94–99
[2016-06-02] MEDS: METOPROLOL TARTRATE 1 MG/ML VIAL IV. SCH ×5 (00:46→16:00)
[2016-06-02] MEDS: AZTREONAM IV 1,000 MG in DEXTROSE 5% 100ML 100 ML IV SCH ×3 (04:04→20:15)
[2016-06-02] MEDS: LEVOTHYROXINE 25 MCG TAB PO SCH (04:05)
[2016-06-02 06:32] LABS: ESTIMATED AVERAGE GLUCOSE 180 mg/dl; HA1C FLAG Normal (Normal)
[2016-06-02] MEDS: ALBUT/IPRATROP 3MG/0.5MG NEB 3 ML VIAL INH SCH ×4 (07:04→20:26)
[2016-06-02 07:07] LABS: BASO ABS # 0.04 K/uL (0-0.2); COMPLETE YES; EOS % 1.6 %; HEMATOCRIT 33.7 % (37-47); LYMPH % 25.1 %; LYMPH ABS # 0.97 K/uL (1.2-3.4); MEAN CELL VOLUME 82.6 fL (80-100); MEAN CORPUSCULAR HEMOGLOBIN 25.7 pg (25-34); MEAN CORPUSCULAR HGB CONC 31.2 g/dl (32-36); MEAN PLATELET VOLUME 10.1 fL (7.4-10.4); MONO % 13.7 %; NEUT % 58.6 %; PLATELET COUNT 157 K/uL (130-400); RED BLOOD COUNT 4.08 M/uL (4.2-5.4); WHITE BLOOD COUNT 3.86 K/uL (4.8-10.8)
[2016-06-02 07:20] LABS: INR 2.7 (0.9-1.1)
[2016-06-02 07:45] LABS: CALCIUM 8.1 mg/dl (8.5-10.1); CREATININE 0.5 mg/dl (0.60-1.20)
[2016-06-02 07:47] LABS: ALB/GLOB RATIO 0.6 (0.9-2)
[2016-06-02] MEDS: INSULIN ASPART 100 UNITS/ML 3 ML PEN SC SCH ×4 (07:52→20:04)
[2016-06-02] MEDS: SODIUM CHLORIDE 0.65% NA SOLN 45 ML (OCEAN) NAE SCH ×2 (08:27→20:05)
[2016-06-02] MEDS: BUMETANIDE IV 2 MG in SYRINGE 0 ML IV SCH ×2 (08:27→16:24)
[2016-06-02] MEDS: BUDESONIDE/FORMOTEROL FUMARATE 160/4.5 60 PUFFS/INHALER INH SCH ×2 (08:27→20:05)
[2016-06-02] MEDS: AMLODIPINE BESYLATE 5 MG TAB PO SCH (08:28)
[2016-06-02] MEDS: CLOPIDOGREL BISULFATE 75 MG TAB PO SCH (08:28)
[2016-06-02] MEDS: ROPINIROLE HCL 1 MG TAB PO SCH (08:29)
[2016-06-02] MEDS: ESCITALOPRAM OXALATE 10 MG TAB PO SCH (08:29)
[2016-06-02] MEDS: GABAPENTIN 300 MG CAP PO SCH ×3 (08:29→20:01)
[2016-06-02] MEDS: MAGNESIUM OXIDE 400 MG TAB PO SCH ×2 (08:29→20:01)
[2016-06-02] MEDS: MULTIVITAMIN TAB PO SCH (08:30)
--- NOTE | 2016-06-02 09:24 | Clinical Documentation Query ---
REZA Max : CLINICAL DOCUMENTATION QUERIES QUERY 1 OF 2 Patient is an 86 year old female presenting for evaluation and treatment of respiratory distress and confusion. She is being treated with IV Rocephin, Aztreonam, Azithromycin, and nebulizer treatments. Blood and sputum cultures are pending. IV Bumex for "congestion" noted on CXR. Echo pending. She is being monitored on telemetry, recieving supplemental O2, and maintained on Bi-PAP therapy. In your clinical opinion is this patient being managed for: ( X ) Metabolic encephalopathy secondary to sepsis and acute on chronic hypoxic and hypercarbic respiratory failure ( ) Other explanation of clinical findings (Please Explain) ( ) Unable to determine (Please Define) ( ) Need to Discuss ( ) Not Agree The medical record reflects the following clinical findings, treatment, and risk factors. Clinical Indicators: Acute confusional state in the setting of sepsis, pneumonia, and increased Oxygen demands beyond baseline. On admission, RR 28, SpO2 81% on Room air. Required 10L NRB to maintain SpO2 within normal limits. Treatment: She is being treated with IV Rocephin, Aztreonam, Azithromycin, and nebulizer treatments. Blood and sputum cultures are pending. IV Bumex for "congestion" noted on CXR. Echo pending. She is being monitored on telemetry, recieving supplemental O2, and maintained on Bi-PAP therapy. Risk Factors: Age, obesity, infection, sepsis, known preserved EF CHF, pulmonary edema. QUERY 2 OF 2 Documentation includes CHF, not otherwise specified. Historical EMR includes that of "preserved EF CHF". Echocardiogram this admission demonstrated normal biventricular systolic function. Admission chest radiograph suggested CHF. Patient is currently being treated with IV Bumex and monitored on telemetry with I/O and daily weights. In your clinical opinion is this patient being managed for: ( X ) Acute on chronic diastolic/preserved EF CHF ( ) Other explanation of clinical findings (Please Explain) ( ) Unable to determine (Please Define) ( ) Need to Discuss ( ) Not Agree The medical record reflects the following clinical findings, treatment, and risk factors. Clinical Indicators: Treatment:Patient is currently being treated with IV Bumex and monitored on telemetry with I/O and daily weights. Risk Factors: Age, hypertension, atrial fibrillation, DM, COPD Please clarify and document your clinical opinion in the progress notes and discharge summary. Terms such as "probable", "suspected", "likely", "questionable", "possible", or "still to be ruled out" are acceptable. IF IN AGREEMENT, YOU MUST DOCUMENT ABOVE DIAGNOSTIC STATEMENT IN DAILY PROGRESS NOTES AND DISCHARGE SUMMARY. This document is not part of the patient's record. Thank You, Avi Hamilton, RN [phone]
--- NOTE | 2016-06-02 12:02 | Progress Note ---
Subjective Date of Service: Jun 02, 2016. Subjective Pt evaluation today including: conversation w/ patient, physical exam, chart review, lab review, review of studies, review of inpatient medication list Pt still confused Nonverbal Alert Denies any pain or discomfort Problem List Medical Problems: (1) Altered mental status Status: Acute (2) Hypoxia Status: Acute (3) Hypoxia Status: Acute (4) Pneumonia Status: Acute (5) Pulmonary edema Status: Acute Review of Systems Constitutional: No chills, No fever Respiratory: No cough, No sputum, No wheezing Cardiac: No chest pain, No orthopnea Abdomen: No nausea, No pain, No vomiting Musculoskeletal: No joint pain, No muscle pain Female : No dysuria, No urinary frequency Objective Vital Signs Date Time Temp Pulse Resp B/P Pulse Ox O2 Delivery O2 Flow Rate FiO2 06/02/16 11:52 36.8 97 18 92/54 94 Nasal Cannula 2.0 06/02/16 08:15 37.5 82 18 118/71 99 BiPAP 06/02/16 08:00 Nasal Cannula 3.0 06/02/16 07:04 79 18 99 BiPAP/CPAP 30 06/02/16 04:04 73 06/02/16 04:00 BiPAP 30 06/02/16 03:57 37.9 67 18 110/63 96 BiPAP 06/02/16 00:46 78 06/01/16 23:59 BiPAP 30 06/01/16 23:33 37.7 82 20 133/75 96 BiPAP 06/01/16 21:47 87 97 30 06/01/16 20:00 Nasal Cannula 3.0 Humidified Oxygen 06/01/16 19:40 87 06/01/16 19:30 36.8 75 20 130/70 98 Nasal Cannula 3.0 06/01/16 19:18 79 18 100 Nasal Cannula 4.0 06/01/16 16:38 74 06/01/16 16:36 74 06/01/16 16:00 BiPAP 40 06/01/16 15:20 37.4 88 20 123/60 99 BiPAP 06/01/16 14:33 88 16 96 BiPAP/CPAP 40 06/01/16 12:00 BiPAP 40 06/01/16 12:00 37.8 70 20 134/64 100 BiPAP 06/01/16 12:00 63 Physical Exam General Appearance: WD/WN, no apparent distress Neck: supple, no adenopathy Respiratory/Chest: chest non-tender, + decreased breath sounds Cardiovascular: no gallop, no JVD Abdomen: non tender, soft Neurologic/Psychiatric: alert, + disoriented Laboratory Results Last 24 Hours Test 06/01/16 12:19 06/01/16 16:21 06/01/16 18:24 06/01/16 20:03 Troponin I 0.139 ng/ml 0.123 ng/ml Bedside Glucose 159 mg/dl 198 mg/dl Test 06/02/16 06:30 06/02/16 06:50 06/02/16 07:02 06/02/16 11:21 White Blood Count 3.86 K/uL Red Blood Count 4.08 M/uL Hemoglobin 10.5 g/dL Hematocrit 33.7 % Mean Corpuscular Volume 82.6 fL Mean Corpuscular Hemoglobin 25.7 pg Mean Corpuscular Hemoglobin Concent 31.2 g/dl Platelet Count 157 K/uL Mean Platelet Volume 10.1 fL Neutrophils (%) (Auto) 58.6 % Lymphocytes (%) (Auto) 25.1 % Monocytes (%) (Auto) 13.7 % Eosinophils (%) (Auto) 1.6 % Basophils (%) (Auto) 1.0 % Neutrophils # (Auto) 2.26 K/uL Lymphocytes # (Auto) 0.97 K/uL Monocytes # (Auto) 0.53 K/uL Eosinophils # (Auto) 0.06 K/uL Basophils # (Auto) 0.04 K/uL RDW Standard Deviation 51.2 fL RDW Coefficient of Variation 16.8 % Immature Granulocyte % (Auto) 0.0 % Immature Granulocyte # (Auto) 0.00 K/uL Sodium Level 138 mmol/L Potassium Level 3.0 mmol/L Chloride Level 97 mmol/L Carbon Dioxide Level 36 mmol/L Anion Gap 5.0 mmol/L Blood Urea Nitrogen 14 mg/dl Creatinine 0.50 mg/dl Est Creatinine Clear Calc Drug Dose 89.8 ml/min Estimated GFR () 100.9 Estimated GFR (Non- 87.0 BUN/Creatinine Ratio 27.0 Random Glucose 111 mg/dl Calcium Level 8.1 mg/dl Total Bilirubin 0.6 mg/dl Aspartate Amino Transf (AST/SGOT) 33 U/L Alanine Aminotransferase (ALT/SGPT) 26 U/L Alkaline Phosphatase 150 U/L Total Protein 6.5 gm/dl Albumin 2.5 gm/dl Globulin 4.0 gm/dl Albumin/Globulin Ratio 0.6 Prothrombin Time 30.0 SECONDS Prothromb Time International Ratio 2.7 Bedside Glucose 108 mg/dl 109 mg/dl Assessment and Plan Sepsis likely secondary to HCAP. - No white count, VSS - Cont rocephin, aztreonam, and azithromycin. - Blood cx NGTD, and urine cx neg - Primary resp alkalosis with full resp compensation. - Cont BiPAP with setting of 12/11. - Cont duonebs. - Chest congestion as well, Cont IV bumex at 2 mg IV BID. - Echo pending - X-ray chest 06/01 Persistent interstitial thickening and bilateral opacities, including left midlung airspace opacity, which may reflect pneumonia or pulmonary edema. Radiographic follow up to ensure resolution is recommended [facility]ely [facility] Acute on chronic diastolic CHF - Cont IV bumex Afib with therapeutic INR, rate controlled, cont coumadin at this time. NSTEMI with mildly elev trops likely from sepsis, cont to trend, EKG with incomplete RBBB, unchanged from prev - will monitor two more sets of troponin q8 hr Hypokalemia - replaced, repeat Bmp in am. Diabetes mellitus - Cont lantus and ISS. Accuchecks Hypertension - Cont amlodipine 5 mg by mouth daily, metoprolol tartrate 25 mg by mouth twice a day. Hypercholesterolemia - Cont atorvastatin 40 mg by mouth daily. Depression - Cont Lexapro 10 mg by mouth daily. Peripheral neuropathy - hold gabapentin 900 mg by mouth 3 times a day. Glaucoma - Cont Xalatan 1 drop OPB at bedtime. Hypothyroidism - Cont levothyroxine sodium 25 g by mouth every 2 days, will obtain TSH Restless leg syndrome--Cont Requip 0.5 mg by mouth daily DVT ppx with heparin Pt is FULL CODE Continued [facility] stay due to: multiple IV medications needed Discharge planning: [facility]dc facility
[2016-06-02] MEDS: CEFTRIAXONE SOD INJ 1 GM in DEXTROSE 5% ADD-VANTAGE 50ML 50 ML IV SCH (14:24)
[2016-06-02] MEDS: AZITHROMYCIN IV 500 MG in DEXTROSE 5% 250ML 250 ML IV SCH (16:23)
[2016-06-02] MEDS: DIGOXIN IV 125 MCG in SYRINGE 9.5 ML IV SCH (16:24)
[2016-06-02] MEDS: WARFARIN SOD 4 MG TAB PO SCH (16:26)
[2016-06-02] MEDS ORDERED: NURSING VERBAL MED ORDER ONE (17:30)
[2016-06-02] MEDS: METOPROLOL TARTRATE 25 MG TAB PO SCH (20:01)
[2016-06-02] MEDS: ATORVASTATIN 40 MG TAB PO SCH (20:01)
[2016-06-02] MEDS: LATANOPROST 0.005% OP SOLN 2.5 ML BTL OPB SCH (20:05)
[2016-06-03] VITALS (13 sets, daily range): BP systolic 116–157; BP diastolic 47–75; PULSE 63–75; TEMP 36.2–36.9; O2SAT 94–100
[2016-06-03] MEDS: AZTREONAM IV 1,000 MG in DEXTROSE 5% 100ML 100 ML IV SCH ×3 (04:34→21:11)
[2016-06-03 06:17] LABS: HEMATOCRIT 35.5 % (37-47); MEAN CELL VOLUME 84.3 fL (80-100); MEAN CORPUSCULAR HEMOGLOBIN 25.9 pg (25-34); MEAN CORPUSCULAR HGB CONC 30.7 g/dl (32-36); MEAN PLATELET VOLUME 10.7 fL (7.4-10.4); PLATELET COUNT 155 K/uL (130-400); RED BLOOD COUNT 4.21 M/uL (4.2-5.4); WHITE BLOOD COUNT 4.53 K/uL (4.8-10.8)
[2016-06-03 06:39] LABS: INR 2.4 (0.9-1.1); PROTHROMBIN TIME (PATIENT) 26.1 SECONDS (9.0-12.0)
[2016-06-03 06:50] LABS: CALCIUM 8.6 mg/dl (8.5-10.1); CREATININE 0.44 mg/dl (0.60-1.20); POTASSIUM 2.9 mmol/L (3.5-5.1)
[2016-06-03 06:53] LABS: ALB/GLOB RATIO 0.6 (0.9-2)
[2016-06-03] MEDS: ALBUT/IPRATROP 3MG/0.5MG NEB 3 ML VIAL INH SCH ×4 (07:00→19:28)
[2016-06-03 07:53] LABS: BASO % 0.9 %; BASO ABS # 0.04 K/uL (0-0.2); COMPLETE YES; EOS % 2.9 %; GIANT PLATELETS 1+; LYMPH % 30.7 %; LYMPH ABS # 1.39 K/uL (1.2-3.4); MONO % 8.6 %; NEUT % 56.9 %
--- NOTE | 2016-06-03 08:04 | Clinical Documentation Query ---
GIGI Quiles : CLINICAL DOCUMENTATION QUERY Patient is an 86 year old female presenting for evaluation and treatment of respiratory distress and confusion. She is being treated with IV Rocephin, Aztreonam, Azithromycin, and nebulizer treatments. Blood and sputum cultures are pending. IV Bumex for "congestion" noted on CXR. Echo pending. She is being monitored on telemetry, recieving supplemental O2, and maintained on Bi-PAP therapy. In your clinical opinion is this patient being managed for: (x ) Metabolic encephalopathy secondary to sepsis and acute on chronic hypoxic and hypercarbic respiratory failure ( ) Other explanation of clinical findings (Please Explain) ( ) Unable to determine (Please Define) ( ) Need to Discuss ( ) Not Agree The medical record reflects the following clinical findings, treatment, and risk factors. Clinical Indicators: Acute confusional state in the setting of sepsis, pneumonia, and increased Oxygen demands beyond baseline. On admission, RR 28, SpO2 81% on Room air. Required 10L NRB to maintain SpO2 within normal limits. Treatment: She is being treated with IV Rocephin, Aztreonam, Azithromycin, and nebulizer treatments. Blood and sputum cultures are pending. IV Bumex for "congestion" noted on CXR. Echo pending. She is being monitored on telemetry, recieving supplemental O2, and maintained on Bi-PAP therapy. Risk Factors: Age, obesity, infection, sepsis, known preserved EF CHF, pulmonary edema. Please clarify and document your clinical opinion in the progress notes and discharge summary. Terms such as "probable", "suspected", "likely", "questionable", "possible", or "still to be ruled out" are acceptable. IF IN AGREEMENT, YOU MUST DOCUMENT ABOVE DIAGNOSTIC STATEMENT IN DAILY PROGRESS NOTES AND DISCHARGE SUMMARY. This document is not part of the patient's record. Thank You, Avi Hamilton, RN [phone]
[2016-06-03] MEDS: BUMETANIDE IV 2 MG in SYRINGE 0 ML IV SCH (09:00)
[2016-06-03] MEDS: INSULIN ASPART 100 UNITS/ML 3 ML PEN SC SCH ×4 (10:11→22:14)
[2016-06-03] MEDS: BUDESONIDE/FORMOTEROL FUMARATE 160/4.5 60 PUFFS/INHALER INH SCH ×2 (10:12→21:12)
[2016-06-03] MEDS: SODIUM CHLORIDE 0.65% NA SOLN 45 ML (OCEAN) NAE SCH ×2 (10:19→21:00)
[2016-06-03] MEDS: POTASSIUM CHLORIDE 20 MEQ TABCR PO SCH ×3 (10:20→21:13)
[2016-06-03] MEDS: ESCITALOPRAM OXALATE 10 MG TAB PO SCH (10:22)
[2016-06-03] MEDS: METOPROLOL TARTRATE 25 MG TAB PO SCH ×2 (10:23→21:13)
[2016-06-03] MEDS: MULTIVITAMIN TAB PO SCH (10:24)
[2016-06-03] MEDS: MAGNESIUM OXIDE 400 MG TAB PO SCH ×2 (10:24→21:14)
[2016-06-03] MEDS: GABAPENTIN 300 MG CAP PO SCH ×3 (10:25→21:14)
[2016-06-03] MEDS: AMLODIPINE BESYLATE 5 MG TAB PO SCH (10:25)
[2016-06-03] MEDS: CLOPIDOGREL BISULFATE 75 MG TAB PO SCH (10:26)
[2016-06-03] MEDS: ROPINIROLE HCL 1 MG TAB PO SCH (10:27)
[2016-06-03] MEDS ORDERED: AZITHROMYCIN 250 MG TAB PO ONE (11:00)
[2016-06-03] MEDS: METHYLPREDNISOLONE IV 40 MG in SYRINGE 0 ML IV SCH ×2 (11:22→21:28)
[2016-06-03] MEDS: GUAIFENESIN 600 MG TABCR PO SCH ×2 (11:22→21:14)
[2016-06-03] MEDS: BENZONATATE 100MG CAP PO SCH ×2 (11:22→21:15)
[2016-06-03] MEDS: WARFARIN SOD 4 MG TAB PO SCH (15:56)
[2016-06-03] MEDS: BUMETANIDE 1 MG TAB PO SCH (15:58)
[2016-06-03] MEDS: DIGOXIN 0.125 MG TAB PO SCH (15:58)
[2016-06-03] MEDS ORDERED: INSULIN GLARGINE SOLOSTAR 100 UNITS/ML 3 ML PEN SC SCH (21:00)
--- NOTE | 2016-06-03 21:04 | Progress Note ---
Subjective Date of Service: Jun 03, 2016. Subjective Pt evaluation today including: conversation w/ patient, physical exam, chart review, lab review, review of studies (CXRs), review of inpatient medication list Pain: LLQ abd pain, began this AM PO Intake: fair per staff Voiding: hamilton catheter in place telemetry stable overnight c/o severe cough largely nonproductive some wheezing denies prior h/o COPD/asthma/chronic lung disease despite c/o abd pain denies nausea or inability to eat per staff patient is largely nonambulatory at baseline Problem List Medical Problems: (1) Altered mental status Status: Acute (2) Hypoxia Status: Acute (3) Hypoxia Status: Acute (4) Pneumonia Status: Acute (5) Pulmonary edema Status: Acute Review of Systems Constitutional: No fever Respiratory: + cough, No dyspnea at rest Cardiac: No chest pain, No orthopnea Abdomen: + pain, + see HPI, No diarrhea Objective Vital Signs Date Time Temp Pulse Resp B/P Pulse Ox O2 Delivery O2 Flow Rate FiO2 06/03/16 19:28 65 18 97 Nasal Cannula 2.0 06/03/16 18:52 36.3 74 16 117/65 97 Nasal Cannula 2.0 06/03/16 16:04 36.4 66 16 130/69 100 Nasal Cannula 2.0 Humidified Oxygen 06/03/16 16:03 36.4 66 18 127/69 98 Nasal Cannula 3.0 06/03/16 16:00 Nasal Cannula 3.0 06/03/16 15:58 70 06/03/16 15:55 63 18 96 Nasal Cannula 2.0 06/03/16 12:00 Nasal Cannula 3.0 06/03/16 11:30 66 18 98 Nasal Cannula 2.0 06/03/16 11:12 36.4 70 16 116/47 94 06/03/16 08:55 Nasal Cannula 2.5 06/03/16 08:00 Nasal Cannula 3.0 06/03/16 07:57 36.7 67 18 125/70 100 06/03/16 07:00 67 18 98 Nasal Cannula 2.0 06/03/16 04:00 Nasal Cannula 3.0 Humidified Oxygen 06/03/16 02:50 36.9 75 18 122/69 96 Nasal Cannula 2.0 06/03/16 00:01 98 Nasal Cannula 3.0 Humidified Oxygen 06/02/16 23:35 36.8 65 18 111/65 98 Nasal Cannula 2.0 Physical Exam General Appearance: no apparent distress (coughing at times) ENT: pharynx normal Neck: no JVD Respiratory/Chest: + decreased breath sounds (bases), + rales (scant, bases), + wheezing (diffuse b/l) Cardiovascular: regular rate, rhythm, no gallop, + systolic murmur (3/6 RUSB and apex; s2 difficult to hear) Abdomen: normal bowel sounds, non tender, soft, no organomegaly Extremities: + pertinent finding (right AKA; left leg without edema; pulses 2+ left foot ) Neurologic/Psychiatric: alert, + disoriented Skin: no rash Laboratory Results Last 24 Hours Test 06/03/16 05:40 06/03/16 07:00 06/03/16 11:28 06/03/16 15:46 White Blood Count 4.53 K/uL Red Blood Count 4.21 M/uL Hemoglobin 10.9 g/dL Hematocrit 35.5 % Mean Corpuscular Volume 84.3 fL Mean Corpuscular Hemoglobin 25.9 pg Mean Corpuscular Hemoglobin Concent 30.7 g/dl Platelet Count 155 K/uL Mean Platelet Volume 10.7 fL Neutrophils (%) (Auto) 56.9 % Lymphocytes (%) (Auto) 30.7 % Monocytes (%) (Auto) 8.6 % Eosinophils (%) (Auto) 2.9 % Basophils (%) (Auto) 0.9 % Neutrophils # (Auto) 2.58 K/uL Lymphocytes # (Auto) 1.39 K/uL Monocytes # (Auto) 0.39 K/uL Eosinophils # (Auto) 0.13 K/uL Basophils # (Auto) 0.04 K/uL RDW Standard Deviation 52.0 fL RDW Coefficient of Variation 16.9 % Immature Granulocyte % (Auto) 0.0 % Immature Granulocyte # (Auto) 0.00 K/uL Giant Platelets 1+ Prothrombin Time 26.1 SECONDS Prothromb Time International Ratio 2.4 Sodium Level 141 mmol/L Potassium Level 2.9 mmol/L Chloride Level 97 mmol/L Carbon Dioxide Level 39 mmol/L Anion Gap 5.0 mmol/L Blood Urea Nitrogen 12 mg/dl Creatinine 0.44 mg/dl Est Creatinine Clear Calc Drug Dose 101.0 ml/min Estimated GFR () 105.2 Estimated GFR (Non- 90.8 BUN/Creatinine Ratio 28.0 Random Glucose 79 mg/dl Calcium Level 8.6 mg/dl Magnesium Level 2.1 mg/dl Total Bilirubin 0.6 mg/dl Aspartate Amino Transf (AST/SGOT) 36 U/L Alanine Aminotransferase (ALT/SGPT) 26 U/L Alkaline Phosphatase 140 U/L Total Protein 6.6 gm/dl Albumin 2.5 gm/dl Globulin 4.1 gm/dl Albumin/Globulin Ratio 0.6 Bedside Glucose 103 mg/dl 128 mg/dl 205 mg/dl Test 06/03/16 20:28 Bedside Glucose 366 mg/dl Assessment and Plan 86yo female: 1. acute/chronic hypoxic and hypercarbic respiratory failure - likely combination of acute bronchitis, b/l pneumonia, +/- acute/chronic diastolic CHF. Ongoing symptoms but improved from admission. 2. b/l pneumonia - either aspiration or gram negative in etiology. pneumonia is recurrent - 3rd admission for such since Mar 2016. recurrent aspiration? anatomical issue / other pathology? day #4 of antibiotics (aztreonam, azithromycin). convert azithromycin to oral. plan 7 days of Rx. 3. acute bronchitis - start IV steroids. Cont bronchodilators, mucinex, O2, etc. 4. metabolic encephalopathy 2nd to #1 and #2 - improved; mental status at baseline? 5. acute/chronic diastolic CHF - appears compensated; d/c IV bumex; change to outpatient dosing of 1.5mg BID. Cont BB. 6. T2DM - increase lantus at HS; cont novolog. 7. CAD with +troponin - likely demand ischemia in setting of pneumonia. Doubt true ACS. 8. h/o a. fib - continue coumadin with daily INR. Cont Digoxin and metoprolol. 9. hypokalemia - 2nd to bumex; add K supplementation; mag is normal; repeat BMP am. 10. concern of aspiration - ?dysphagia leading to repeat pneumonias? speech evaluation 11. hypothyroidism - TSH compensated; cont synthroid same dose. 12. c/o abdominal pain - exam is normal. Follow for now. PT, OT evals slow progress probably can go to med/surg later today Continued [facility] stay due to: voiding difficulties, ambulation difficulties, multiple IV medications needed [facility]
[2016-06-03] MEDS: LATANOPROST 0.005% OP SOLN 2.5 ML BTL OPB SCH (21:12)
[2016-06-03] MEDS: ATORVASTATIN 40 MG TAB PO SCH (21:13)
[2016-06-03] MEDS ORDERED: INSULIN GLARGINE SOLOSTAR 100 UNITS/ML 3 ML PEN SC ONE (22:15)
[2016-06-03] MEDS ORDERED: NURSING VERBAL MED ORDER ONE (22:15)
[2016-06-04] MEDS ORDERED: INSULIN HUMAN REGULAR SC SCH (02:15)
[2016-06-04] MEDS ORDERED: NURSING VERBAL MED ORDER ONE ×2 (03:30→20:15)
[2016-06-04] MEDS ORDERED: INSULIN ASPART 100 UNITS/ML 3 ML PEN SC ONE (03:30)
[2016-06-04] MEDS ORDERED: INSULIN REGULAR 8 UNITS in SYRINGE 7.92 ML IV SCH ×2 (03:30→20:30)
[2016-06-04] MEDS: AZTREONAM IV 1,000 MG in DEXTROSE 5% 100ML 100 ML IV SCH ×3 (04:05→21:21)
[2016-06-04] MEDS: LEVOTHYROXINE 25 MCG TAB PO SCH (06:47)
[2016-06-04 07:43] VITALS: BP 140/70; PULSE 58; TEMP 36.5; O2SAT 99
[2016-06-04 07:52] VITALS: PULSE 58; O2SAT 96
[2016-06-04] MEDS: ALBUT/IPRATROP 3MG/0.5MG NEB 3 ML VIAL INH SCH ×2 (07:52→11:43)
[2016-06-04 08:54] LABS: PROTHROMBIN TIME (PATIENT) 48.2 SECONDS (9.0-12.0)
[2016-06-04] MEDS: BUDESONIDE/FORMOTEROL FUMARATE 160/4.5 60 PUFFS/INHALER INH SCH ×2 (08:58→21:22)
[2016-06-04] MEDS: BUMETANIDE 1 MG TAB PO SCH ×2 (09:01→18:11)
[2016-06-04] MEDS: ESCITALOPRAM OXALATE 10 MG TAB PO SCH (09:02)
[2016-06-04] MEDS: CLOPIDOGREL BISULFATE 75 MG TAB PO SCH (09:02)
[2016-06-04] MEDS: GUAIFENESIN 600 MG TABCR PO SCH ×2 (09:02→21:31)
[2016-06-04] MEDS: GABAPENTIN 300 MG CAP PO SCH ×3 (09:02→21:31)
[2016-06-04] MEDS: METOPROLOL TARTRATE 25 MG TAB PO SCH ×2 (09:03→21:31)
[2016-06-04] MEDS: MULTIVITAMIN TAB PO SCH (09:03)
[2016-06-04] MEDS: POTASSIUM CHLORIDE 20 MEQ TABCR PO SCH ×3 (09:04→21:29)
[2016-06-04] MEDS: BENZONATATE 100MG CAP PO SCH ×3 (09:07→21:32)
[2016-06-04] MEDS: AZITHROMYCIN 250 MG TAB PO SCH (09:07)
[2016-06-04] MEDS: MAGNESIUM OXIDE 400 MG TAB PO SCH ×2 (09:07→21:31)
[2016-06-04] MEDS: ROPINIROLE HCL 1 MG TAB PO SCH (09:07)
[2016-06-04] MEDS: INSULIN ASPART 100 UNITS/ML 3 ML PEN SC SCH ×4 (09:11→21:41)
[2016-06-04] MEDS: AMLODIPINE BESYLATE 5 MG TAB PO SCH (09:18)
[2016-06-04 09:27] LABS: BUN/CREATININE RATIO 39.8 (10-20); CALCIUM 9.1 mg/dl (8.5-10.1); CREATININE 0.58 mg/dl (0.60-1.20); POTASSIUM 4.3 mmol/L (3.5-5.1)
[2016-06-04 10:18] VITALS: O2SAT 99
[2016-06-04 10:49] LABS: INR 4.2 (0.9-1.1)
[2016-06-04 12:22] VITALS: PULSE 62; O2SAT 96
[2016-06-04] MEDS ORDERED: ALBUT/IPRATROP 3MG/0.5MG NEB 3 ML VIAL INH PRN (12:45)
[2016-06-04] MEDS: METHYLPREDNISOLONE IV 40 MG in SYRINGE 0 ML IV SCH (13:04)
[2016-06-04] MEDS: SODIUM CHLORIDE 0.65% NA SOLN 45 ML (OCEAN) NAE SCH ×2 (13:24→21:23)
[2016-06-04 15:44] VITALS: BP 126/70; PULSE 66; TEMP 36.9; O2SAT 97
[2016-06-04] MEDS: IPRATROPIUM BROMIDE/ALBUTEROL respimat INH INH SCH ×2 (18:07→21:22)
[2016-06-04] MEDS: DIGOXIN 0.125 MG TAB PO SCH (18:10)
[2016-06-04] MEDS ORDERED: INSULIN GLARGINE SOLOSTAR 100 UNITS/ML 3 ML PEN SC SCH (21:00)
[2016-06-04] MEDS: LATANOPROST 0.005% OP SOLN 2.5 ML BTL OPB SCH (21:23)
[2016-06-04] MEDS: ATORVASTATIN 40 MG TAB PO SCH (21:30)
[2016-06-04] MEDS: INSULIN GLARGINE SOLOSTAR 100 UNITS/ML 3 ML PEN SC SCH (21:40)
[2016-06-05 00:34] VITALS: BP 160/77; PULSE 65; TEMP 36.5; O2SAT 97
[2016-06-05] MEDS: METHYLPREDNISOLONE IV 30 MG in SYRINGE 0 ML IV SCH ×2 (00:53→13:45)
[2016-06-05] MEDS: AZTREONAM IV 1,000 MG in DEXTROSE 5% 100ML 100 ML IV SCH ×3 (05:33→21:18)
--- NOTE | 2016-06-05 05:43 | Progress Note ---
Subjective Date of Service: late entry for visit Jun 04, 2016. Subjective Pt evaluation today including: conversation w/ patient, physical exam, chart review, lab review, review of inpatient medication list Pain: denies PO Intake: fair no issues overnight this AM she has had severe cough productive of thick mucopurulent sputum otherwise denies complaints Problem List Medical Problems: (1) Altered mental status Status: Acute (2) Hypoxia Status: Acute (3) Hypoxia Status: Acute (4) Pneumonia Status: Acute (5) Pulmonary edema Status: Acute Review of Systems Constitutional: No chills, No fever Respiratory: + cough, + sputum, No dyspnea at rest Cardiac: No chest pain Abdomen: No pain Objective Vital Signs Date Time Temp Pulse Resp B/P Pulse Ox O2 Delivery O2 Flow Rate FiO2 06/05/16 01:50 Nasal Cannula 3.0 06/05/16 00:34 36.5 65 18 160/77 97 2.0 06/04/16 18:10 66 06/04/16 16:00 Nasal Cannula 3.0 06/04/16 15:44 36.9 66 20 126/70 97 Nasal Cannula 2.0 06/04/16 12:22 62 16 96 Nasal Cannula 2.0 06/04/16 10:18 99 Nasal Cannula 3.0 06/04/16 07:52 58 16 96 Nasal Cannula 2.0 06/04/16 07:43 36.5 58 20 140/70 99 Nasal Cannula 3.0 Physical Exam General Appearance: + mild distress (only during coughing fits) ENT: pharynx normal Neck: no JVD Respiratory/Chest: no respiratory distress, no accessory muscle use, + pertinent finding (wheezing much better today; minimal rales bases) Cardiovascular: + pertinent finding (irregular, s1, s2) Abdomen: normal bowel sounds, non tender, soft, no organomegaly Extremities: + pertinent finding (right AKA; left foot without edema; pulses left foot 2+) Neurologic/Psychiatric: alert Laboratory Results Last 24 Hours Test 06/04/16 08:30 06/04/16 11:19 06/04/16 16:12 06/04/16 19:35 Prothrombin Time 48.2 SECONDS Prothromb Time International Ratio 4.2 Sodium Level 139 mmol/L Potassium Level 4.3 mmol/L Chloride Level 100 mmol/L Carbon Dioxide Level 35 mmol/L Anion Gap 4.0 mmol/L Blood Urea Nitrogen 23 mg/dl Creatinine 0.58 mg/dl Est Creatinine Clear Calc Drug Dose 76.7 ml/min Estimated GFR () 96.1 Estimated GFR (Non- 82.9 BUN/Creatinine Ratio 39.8 Random Glucose 187 mg/dl Calcium Level 9.1 mg/dl Bedside Glucose 292 mg/dl 234 mg/dl 353 mg/dl Test 06/05/16 01:01 06/05/16 04:44 Bedside Glucose 140 mg/dl Assessment and Plan 86yo female: 1. acute/chronic hypoxic and hypercarbic respiratory failure - likely combination of acute bronchitis, b/l pneumonia, +/- acute/chronic diastolic CHF. acute component resolving. 2. b/l pneumonia - either aspiration or gram negative in etiology. pneumonia is recurrent - 3rd admission for such since Mar 2016. recurrent aspiration? seen by speech; place on [facility] soft diet. day #5 of antibiotics (aztreonam, azithromycin). plan 7 days of Rx. consider repeat cxr 1-2 days. 3. acute bronchitis - improved; wean IV steroids. Cont bronchodilators, mucinex, O2, etc. 4. metabolic encephalopathy 2nd to #1 and #2 - improved/resolved. 5. acute/chronic diastolic CHF - appears compensated. cont bumex 1.5mg BID. Cont BB. 6. T2DM - uncontrolled due to steroids; increase lantus at HS and increase novolog. 7. CAD with +troponin - likely demand ischemia in setting of pneumonia. Doubt true ACS. 8. h/o a. fib - continue coumadin with daily INR. Cont Digoxin and metoprolol. 9. hypokalemia - resolved; cont K supplementation. 10. concern of aspiration - ?dysphagia leading to repeat pneumonias? speech evaluation appreciated; diet changed to [facility] soft but thin liquids ok. 11. hypothyroidism - TSH compensated; cont synthroid same dose. 12. c/o abdominal pain - abd exam today again normal. follow. progressing Continued [facility] stay due to: voiding difficulties, ambulation difficulties, multiple IV medications needed Discharge planning: assisted facility
[2016-06-05 08:59] LABS: PROTHROMBIN TIME (PATIENT) 56.4 SECONDS (9.0-12.0)
[2016-06-05 09:03] VITALS: BP 157/78; PULSE 69; TEMP 35.6; O2SAT 96
[2016-06-05 09:03] LABS: INR 4.9 (0.9-1.1)
[2016-06-05 10:39] VITALS: O2SAT 96
[2016-06-05] MEDS: IPRATROPIUM BROMIDE/ALBUTEROL respimat INH INH SCH ×4 (13:36→21:19)
[2016-06-05] MEDS: BUDESONIDE/FORMOTEROL FUMARATE 160/4.5 60 PUFFS/INHALER INH SCH ×2 (13:36→21:19)
[2016-06-05] MEDS: BUMETANIDE 1 MG TAB PO SCH ×2 (13:37→17:35)
[2016-06-05] MEDS: SODIUM CHLORIDE 0.65% NA SOLN 45 ML (OCEAN) NAE SCH ×2 (13:37→21:19)
[2016-06-05] MEDS: POTASSIUM CHLORIDE 20 MEQ TABCR PO SCH ×3 (13:38→21:22)
[2016-06-05] MEDS: ESCITALOPRAM OXALATE 10 MG TAB PO SCH (13:38)
[2016-06-05] MEDS: MAGNESIUM OXIDE 400 MG TAB PO SCH ×2 (13:39→21:26)
[2016-06-05] MEDS: METOPROLOL TARTRATE 25 MG TAB PO SCH ×2 (13:39→21:26)
[2016-06-05] MEDS: MULTIVITAMIN TAB PO SCH (13:41)
[2016-06-05] MEDS: GUAIFENESIN 600 MG TABCR PO SCH ×2 (13:41→21:26)
[2016-06-05] MEDS: GABAPENTIN 300 MG CAP PO SCH ×3 (13:41→21:27)
[2016-06-05] MEDS: AMLODIPINE BESYLATE 5 MG TAB PO SCH (13:42)
[2016-06-05] MEDS: ROPINIROLE HCL 1 MG TAB PO SCH (13:43)
[2016-06-05] MEDS: CLOPIDOGREL BISULFATE 75 MG TAB PO SCH (13:43)
[2016-06-05] MEDS: BENZONATATE 100MG CAP PO SCH ×3 (13:44→21:27)
[2016-06-05] MEDS: AZITHROMYCIN 250 MG TAB PO SCH (13:45)
[2016-06-05] MEDS: INSULIN ASPART 100 UNITS/ML 3 ML PEN SC SCH ×4 (13:51→21:44)
[2016-06-05] MEDS: DIGOXIN 0.125 MG TAB PO SCH (16:00)
[2016-06-05 16:35] VITALS: Ht 167.6 cm; Wt 88.7 kg
[2016-06-05 17:01] VITALS: BP 143/73; PULSE 61; TEMP 36.8; O2SAT 97
[2016-06-05] MEDS: LATANOPROST 0.005% OP SOLN 2.5 ML BTL OPB SCH (21:20)
[2016-06-05] MEDS: ATORVASTATIN 40 MG TAB PO SCH (21:24)
[2016-06-05] MEDS: INSULIN GLARGINE SOLOSTAR 100 UNITS/ML 3 ML PEN SC SCH (21:43)
[2016-06-05 23:21] VITALS: BP 133/72; PULSE 63; TEMP 36.6; O2SAT 98
--- NOTE | 2016-06-06 00:57 | Progress Note ---
Subjective Date of Service: Jun 05, 2016. Subjective Pt evaluation today including: conversation w/ patient, conversation w/ family (son, POA, by phone), physical exam, chart review, lab review Pain: denies PO Intake: very good no issues overnight denies any cough - completely resolved no dyspnea at this time son updated and confirms that his mother is DNR, level 5 Problem List Medical Problems: (1) Altered mental status Status: Acute (2) Hypoxia Status: Acute (3) Hypoxia Status: Acute (4) Pneumonia Status: Acute (5) Pulmonary edema Status: Acute Review of Systems Constitutional: No fever Respiratory: No cough, No shortness of breath, No sputum, No wheezing Cardiac: No chest pain, No orthopnea Abdomen: No pain Objective Vital Signs Date Time Temp Pulse Resp B/P Pulse Ox O2 Delivery O2 Flow Rate FiO2 06/05/16 17:01 36.8 61 18 143/73 97 Nasal Cannula 2.5 06/05/16 16:00 56 06/05/16 10:39 96 Nasal Cannula 3.0 06/05/16 09:03 35.6 69 20 157/78 96 06/05/16 01:50 Nasal Cannula 3.0 06/05/16 00:34 36.5 65 18 160/77 97 2.0 Physical Exam General Appearance: no apparent distress, + obese ENT: pharynx normal Neck: no JVD Respiratory/Chest: no respiratory distress, no accessory muscle use, + rales ( scant, bases) Cardiovascular: regular rate, rhythm, no gallop Abdomen: normal bowel sounds, non tender, soft, no organomegaly Extremities: no pedal edema Neurologic/Psychiatric: alert Laboratory Results Last 24 Hours Test 06/05/16 01:01 06/05/16 07:18 06/05/16 08:00 06/05/16 11:44 Bedside Glucose 140 mg/dl 202 mg/dl 285 mg/dl Prothrombin Time 56.4 SECONDS Prothromb Time International Ratio 4.9 Test 06/05/16 16:32 06/05/16 19:46 Bedside Glucose 342 mg/dl 292 mg/dl Assessment and Plan 86yo female: 1. acute/chronic hypoxic and hypercarbic respiratory failure - likely combination of acute bronchitis, b/l pneumonia, + acute/chronic diastolic CHF. acute component resolved. 2. b/l pneumonia - either aspiration or gram negative in etiology. pneumonia is recurrent - 3rd admission for such since Mar 2016. recurrent aspiration? seen by speech; placed on [facility] soft diet. day #6/7 of antibiotics (aztreonam). plan 7 days of Rx. 3. acute bronchitis - resolved. d/c IV steroids, change to PO prednisone in AM. Cont bronchodilators, mucinex, O2, etc. 4. metabolic encephalopathy 2nd to #1 and #2 - resolved. 5. acute/chronic diastolic CHF - appears compensated. cont bumex 1.5mg BID. Cont BB. 6. T2DM - uncontrolled due to steroids; increased lantus and novolog last pm. should improve with d/c of IV steroids. 7. CAD with +troponin - likely demand ischemia in setting of pneumonia. Doubt true ACS. 8. h/o a. fib - INR greater than 4 - hold coumadin; repeat INR am. 9. hypokalemia - resolved; cont K supplementation. 10. concern of aspiration - ?dysphagia leading to repeat pneumonias? speech evaluation appreciated; diet changed to [facility] soft but thin liquids ok. 11. hypothyroidism - TSH compensated; cont synthroid same dose. spoke with son by phone who has POA gave broad update answered questions told him I was aware of recurrent pneumonias silent aspiration given the location of the pneumonias?? (bibasilar on all films ) told him I anticipate d/c on Thursday after 7th day of abx therapy he confirms he wishes to have his mother level 5 DNR Continued [facility] stay due to: multiple IV medications needed Discharge planning: nursing home facility
[2016-06-06] MEDS: AZTREONAM IV 1,000 MG in DEXTROSE 5% 100ML 100 ML IV SCH ×3 (05:17→20:25)
[2016-06-06] MEDS: LEVOTHYROXINE 25 MCG TAB PO SCH (06:29)
[2016-06-06 06:33] LABS: PROTHROMBIN TIME (PATIENT) 46.7 SECONDS (9.0-12.0)
[2016-06-06 06:35] LABS: INR 4.1 (0.9-1.1)
[2016-06-06 07:13] LABS: BUN/CREATININE RATIO 51.7 (10-20); CALCIUM 9.4 mg/dl (8.5-10.1); CREATININE 0.6 mg/dl (0.60-1.20); POTASSIUM 4.6 mmol/L (3.5-5.1)
[2016-06-06 07:42] VITALS: BP 140/70; PULSE 80; TEMP 36.4; O2SAT 98
[2016-06-06] MEDS: CLOPIDOGREL BISULFATE 75 MG TAB PO SCH (08:29)
[2016-06-06] MEDS: GABAPENTIN 300 MG CAP PO SCH ×3 (08:29→20:36)
[2016-06-06] MEDS: AMLODIPINE BESYLATE 5 MG TAB PO SCH (08:29)
[2016-06-06] MEDS: MAGNESIUM OXIDE 400 MG TAB PO SCH ×2 (08:30→20:34)
[2016-06-06] MEDS: METOPROLOL TARTRATE 25 MG TAB PO SCH ×2 (08:30→20:40)
[2016-06-06] MEDS: MULTIVITAMIN TAB PO SCH (08:30)
[2016-06-06] MEDS: ESCITALOPRAM OXALATE 10 MG TAB PO SCH (08:30)
[2016-06-06] MEDS: BUMETANIDE 1 MG TAB PO SCH ×2 (08:31→16:42)
[2016-06-06] MEDS: GUAIFENESIN 600 MG TABCR PO SCH ×2 (08:31→20:36)
[2016-06-06] MEDS: BUDESONIDE/FORMOTEROL FUMARATE 160/4.5 60 PUFFS/INHALER INH SCH ×2 (08:33→20:31)
[2016-06-06] MEDS: ROPINIROLE HCL 1 MG TAB PO SCH (08:33)
[2016-06-06] MEDS: SODIUM CHLORIDE 0.65% NA SOLN 45 ML (OCEAN) NAE SCH ×2 (08:33→20:31)
[2016-06-06] MEDS: IPRATROPIUM BROMIDE/ALBUTEROL respimat INH INH SCH ×4 (08:33→20:30)
[2016-06-06] MEDS: BENZONATATE 100MG CAP PO SCH ×3 (08:34→20:33)
[2016-06-06] MEDS: INSULIN ASPART 100 UNITS/ML 3 ML PEN SC SCH ×4 (08:51→22:08)
[2016-06-06] MEDS: POTASSIUM CHLORIDE 20 MEQ TABCR PO SCH (08:51)
[2016-06-06] MEDS ORDERED: POTASSIUM CHLORIDE 20 MEQ TABCR PO SCH (09:00)
[2016-06-06 09:55] VITALS: O2SAT 98
[2016-06-06 16:03] VITALS: BP 127/69; PULSE 70; TEMP 36.6; O2SAT 98
[2016-06-06] MEDS: DIGOXIN 0.125 MG TAB PO SCH (16:41)
[2016-06-06 20:00] VITALS: BP 180/73; PULSE 73; O2SAT 99
[2016-06-06] MEDS: LATANOPROST 0.005% OP SOLN 2.5 ML BTL OPB SCH (20:32)
[2016-06-06] MEDS: ATORVASTATIN 40 MG TAB PO SCH (20:35)
--- NOTE | 2016-06-06 21:42 | DIAGNOSTIC IMAGING REPORT ---
CT OF THE CHEST WITHOUT IV CONTRAST CLINICAL HISTORY: Recurrent pneumonia, hypoxia. COMPARISON STUDY: 12/22/2013 CT DOSE: 766.32 mGy.cm TECHNIQUE: CT of the thorax was performed from the thoracic inlet to the lung bases. Images are reviewed in the axial, sagittal, and coronal planes. IV contrast was not administered for this examination. FINDINGS: Thyroid: Imaged portions of the thyroid gland are normal in appearance. Thoracic aorta: The thoracic aorta is normal in course and caliber, noting standard 3 vessel arch anatomy. Heart: There are coronary artery calcifications present. There is a left subclavian single chamber central venous pacemaker present. Lungs and pleural spaces: There are subtle bilateral groundglass opacities with upper lung zone predominance. These are statistically inflammatory. There is no significant subpleural reticulation. There is right middle lobe atelectasis. There is a 5 mm left lower lobe pulmonary nodule. There are mild lingular atelectatic changes. Mediastinum: Mediastinal lymph nodes the upper limits of normal in size. Caitlin: Hilar lymph nodes are the upper limits of normal in size. Axilla: There is no pathologic axillary lymphadenopathy. Upper abdomen: Partially visualized upper abdominal viscera is within normal limits. There are extensive atheromatous changes present within the thoracic aorta. A chronic dissection cannot be excluded. The findings remain similar to the prior study. Skeletal structures: There are no lytic or blastic osseous lesions. IMPRESSION: 1. Borderline enlarged mediastinal and hilar lymph nodes, slightly smaller than on the prior September 2013 study 2. Right middle lobe and lingular atelectatic changes 3. Subtle bilateral groundglass nodular opacities with upper lung zone predominance. An infectious/inflammatory etiology is suspected. 4. No significant pleural effusions 5. Advanced atheromatous changes within the aorta 6. No evidence of subpleural reticulation. No evidence of honeycombing. Electronically signed by: Konstantin Fierro M.D. 06/06/2016 9:40 PM Dictated Date/Time: 06/06/2016 9:33 PM
[2016-06-06] MEDS: INSULIN GLARGINE SOLOSTAR 100 UNITS/ML 3 ML PEN SC SCH (22:09)
[2016-06-07 00:31] VITALS: BP 166/64; PULSE 65; TEMP 36.5; O2SAT 99
[2016-06-07] MEDS: AZTREONAM IV 1,000 MG in DEXTROSE 5% 100ML 100 ML IV SCH (04:58)
--- NOTE | 2016-06-07 05:38 | Progress Note ---
Subjective Date of Service: late entry for visit June 06, 2016. Subjective Pt evaluation today including: conversation w/ patient, physical exam, chart review, lab review, review of inpatient medication list Pain: none PO Intake: excellent Voiding: incontinence no issues overnight periods of cough but otherwise unchanged status staff think she aspirates based on bedside assessment Problem List Medical Problems: (1) Altered mental status Status: Acute (2) Hypoxia Status: Acute (3) Hypoxia Status: Acute (4) Pneumonia Status: Acute (5) Pulmonary edema Status: Acute Review of Systems Constitutional: No fever Respiratory: + cough, + wheezing, No dyspnea at rest Cardiac: No chest pain, No orthopnea Abdomen: No pain Objective Vital Signs Date Time Temp Pulse Resp B/P Pulse Ox O2 Delivery O2 Flow Rate FiO2 06/07/16 00:31 36.5 65 20 166/64 99 Nasal Cannula 2.0 06/07/16 00:00 Nasal Cannula 3.0 06/06/16 20:00 Nasal Cannula 3.0 06/06/16 20:00 73 20 180/73 99 Nasal Cannula 06/06/16 16:41 74 06/06/16 16:03 36.6 70 16 127/69 98 Nasal Cannula 3.0 06/06/16 15:45 Nasal Cannula 3.0 06/06/16 09:55 98 Nasal Cannula 3.0 06/06/16 08:00 Nasal Cannula 3.0 06/06/16 07:42 36.4 80 20 140/70 98 Nasal Cannula 3.0 Physical Exam General Appearance: no apparent distress ENT: pharynx normal Neck: no JVD Respiratory/Chest: no respiratory distress, no accessory muscle use, + wheezing , + pertinent finding (no rales) Cardiovascular: no gallop, + irregularly irregular Abdomen: normal bowel sounds, non tender, soft, no organomegaly Extremities: no pedal edema (left leg), + pertinent finding (AKA right leg) Neurologic/Psychiatric: alert Laboratory Results Last 24 Hours Test 06/06/16 06:04 06/06/16 07:33 06/06/16 11:31 06/06/16 18:04 Prothrombin Time 46.7 SECONDS Prothromb Time International Ratio 4.1 Sodium Level 141 mmol/L Potassium Level 4.6 mmol/L Chloride Level 100 mmol/L Carbon Dioxide Level 41 mmol/L Anion Gap 0.0 mmol/L Blood Urea Nitrogen 31 mg/dl Creatinine 0.60 mg/dl Est Creatinine Clear Calc Drug Dose 74.1 ml/min Estimated GFR () 95.0 Estimated GFR (Non- 82.0 BUN/Creatinine Ratio 51.7 Random Glucose 159 mg/dl Calcium Level 9.4 mg/dl Bedside Glucose 134 mg/dl 232 mg/dl 380 mg/dl Test 06/06/16 19:56 06/06/16 21:48 06/07/16 05:32 Bedside Glucose 398 mg/dl 312 mg/dl Assessment and Plan 86yo female: 1. acute/chronic hypoxic and hypercarbic respiratory failure - likely combination of acute bronchitis, b/l pneumonia, + acute/chronic diastolic CHF. Overall markedly improved vs earlier this week. 2. b/l pneumonia - either aspiration or gram negative in etiology. pneumonia is recurrent - 3rd admission for such since Mar 2016. recurrent aspiration? seen by speech; placed on [facility] soft diet. day #677 of antibiotics (aztreonam). stop abx after tonight's dose. She has significant wheezing today; yesterday was quite clear. Again - intermittent aspiration? plan for noncontrast chest CT for further information and to help prevent re- admission. repeat cbc, sed rate in am. 3. acute bronchitis - continue prednisone taper with slow wean. 4. metabolic encephalopathy 2nd to #1 and #2 - resolved. 5. acute/chronic diastolic CHF - compensated., cont bumex 1.5mg BID. Cont BB. 6. T2DM - uncontrolled due to steroids; adjust lantus/novolog once again. 7. CAD with +troponin - likely demand ischemia in setting of pneumonia. 8. h/o a. fib - INR greater than 4 again - hold coumadin; repeat INR am. 9. hypokalemia - resolved; cont K supplementation. 10. concern of aspiration - ?dysphagia leading to repeat pneumonias? speech evaluation appreciated; diet changed to [facility] soft but thin liquids ok. 11. hypothyroidism - TSH compensated; cont synthroid same dose. hopefully d/c back to SNF tomorrow pending clinical status Continued [facility] stay due to: multiple IV medications needed [facility]
[2016-06-07 07:34] LABS: BASO % 0.1 %; BASO ABS # 0.01 K/uL (0-0.2); COMPLETE YES; EOS % 0.3 %; HEMATOCRIT 39.2 % (37-47); IG% 0.3 %; LYMPH % 16.3 %; LYMPH ABS # 1.92 K/uL (1.2-3.4); MEAN CELL VOLUME 82.5 fL (80-100); MEAN CORPUSCULAR HEMOGLOBIN 26.5 pg (25-34); MEAN CORPUSCULAR HGB CONC 32.1 g/dl (32-36); MEAN PLATELET VOLUME 10.1 fL (7.4-10.4); MONO % 9.4 %; NEUT % 73.6 %; PLATELET COUNT 250 K/uL (130-400); RED BLOOD COUNT 4.75 M/uL (4.2-5.4); WHITE BLOOD COUNT 11.78 K/uL (4.8-10.8)
[2016-06-07] MEDS ORDERED: POTASSIUM CHLORIDE 20 MEQ TABCR PO SCH (09:00)
[2016-06-07] MEDS: SODIUM CHLORIDE 0.65% NA SOLN 45 ML (OCEAN) NAE SCH (09:09)
[2016-06-07] MEDS: BUDESONIDE/FORMOTEROL FUMARATE 160/4.5 60 PUFFS/INHALER INH SCH (09:09)
[2016-06-07] MEDS: IPRATROPIUM BROMIDE/ALBUTEROL respimat INH INH SCH (09:09)
[2016-06-07] MEDS: BUMETANIDE 1 MG TAB PO SCH (09:10)
[2016-06-07] MEDS: BENZONATATE 100MG CAP PO SCH (09:12)
[2016-06-07] MEDS: ROPINIROLE HCL 1 MG TAB PO SCH (09:13)
[2016-06-07] MEDS: INSULIN ASPART 100 UNITS/ML 3 ML PEN SC SCH (09:16)
[2016-06-07 09:18] VITALS: BP 175/75; PULSE 66; TEMP 36.3; O2SAT 98
[2016-06-07] MEDS: ESCITALOPRAM OXALATE 10 MG TAB PO SCH (09:20)
[2016-06-07] MEDS: METOPROLOL TARTRATE 25 MG TAB PO SCH (09:20)
[2016-06-07] MEDS: GUAIFENESIN 600 MG TABCR PO SCH (09:21)
[2016-06-07] MEDS: MAGNESIUM OXIDE 400 MG TAB PO SCH (09:21)
[2016-06-07] MEDS: CLOPIDOGREL BISULFATE 75 MG TAB PO SCH (09:22)
[2016-06-07] MEDS: MULTIVITAMIN TAB PO SCH (09:22)
[2016-06-07] MEDS: AMLODIPINE BESYLATE 5 MG TAB PO SCH (09:23)
[2016-06-07] MEDS: GABAPENTIN 300 MG CAP PO SCH (09:24)
[2016-06-07 09:34] LABS: BUN/CREATININE RATIO 49.4 (10-20); CALCIUM 9.9 mg/dl (8.5-10.1); CREATININE 0.59 mg/dl (0.60-1.20); MAGNESIUM 2.5 mg/dl (1.8-2.4); POTASSIUM 3.7 mmol/L (3.5-5.1)
[2016-06-07 09:46] LABS: INR 2.5 (0.9-1.1); PROTHROMBIN TIME (PATIENT) 27.4 SECONDS (9.0-12.0)
[2016-06-07] MEDS ORDERED: INSDGI SC ×2 (10:17→10:20)
[2016-06-07] MEDS ORDERED: IPRASOL4 INH (10:17)
[2016-06-07] MEDS ORDERED: BENZ100C7 PO (10:17)
[2016-06-07] MEDS ORDERED: PRD10 PO (10:17)
[2016-06-07] MEDS ORDERED: GFNSR600 PO (10:17)
[2016-06-07] MEDS ORDERED: SPRIN PO (10:17)
[2016-06-07] MEDS ORDERED: ALBINS/ INH (10:17)
--- NOTE | 2016-06-07 10:25 | Discharge Instructions ---
Discharge Instructions Date of Service Jun 07, 2016. Admission Reason for Admission: Altered Mental Status, Hypoxia, Pulmonary Edema Discharge Discharge Diagnosis / Problem: Congestive heart failure, bronchitis, & pneumonia - improved. Discharge Goals Goal(s): Learn about illness, Diagnostic testing, Therapeutic intervention Activity Recommendations Activity Level: Assistance Required Therapies: Physical Therapy, Occupational Therapy . Additional Information Patient informed of condition: Yes Advance Directives: Yes DNR: Yes Level of Care: Skilled Communicable Disease: No Prognosis: Stable Oxygen at (LPM): 3 continuously Myers Catheter: No Instructions / Follow-Up Instructions / Follow-Up From Dr. Godinez - 1. Please schedule appointment with [facility] - any available provider - within 7 days if possible diagnosis - "COPD", recurrent pneumonia, chronic oxygen dependency 2. See certified court/medical interpreter of SNF within 48 hours of return to SNF Current Hospital Diet Patient's current hospital diet: AHA Diet (Heart Healthy), Low Sodium Diet (2gm Na) Discharge Diet Recommended Diet: Low Sodium Diet (2gm Na), Diabetes Type 2 Diet Fluid Restriction: 1500 ml (6 cups) Diet Texture: Mechanical Soft (ground) Procedures Procedures Performed: Multiple chest x-rays CAT scan of lungs echocardiogram Pending Studies Studies pending at discharge: no Physician Orders On Transfer Special Precautions: Speech Therapy Is Recommending the following due to high risk of aspiration: 1.Mechanical soft diet with thin liquids 2.Aspiration precautions straws ok a.Oral Hygiene clean mouth prior to oral intake in the morning, after meals, and before going to bed b.Mouth care q shift to minimize oral bacteria that can be aspirated in saliva 3.Safe swallow strategies (small bites, small sips, slow rate) Vital Signs: per routine please also check O2 sats at least daily Weigh: every AM inform certified court/medical interpreter of any weight gain of more than 2-3 pounds in 1-2 days Additional Orders: 1. fingerstick blood sugar checks before meals and at bedtime 2. check BMP and Magnesium level in 4-5 days for stability 3. check INR in 4-5 days for stability Report all test results to certified court/medical interpreter POLST Discussion: without POLST completion Laboratory Results Hemoglobin A1c Test 06/01/16 05:52 Range/Units Estimated Average Glucose 180 mg/dl Hemoglobin A1c 7.9 H 4.5-5.6 % Medical Emergencies . Who to Call and When: Medical Emergencies: If at any time you feel your situation is an emergency, please call 911 immediately. . Non-Emergent Contact Non-Emergency issues call your: Hospital Doctor (of SNF) Call Non-Emergent contact if: temperature is above 100.5, your pain is not controlled, you have any medication questions . . "Provider Documentation" section prepared by Melo Godinez. Core Measure Problem Core Measures: None
[2016-06-07 10:35] VITALS: BP 107/65; PULSE 66
[2016-06-07 10:37] VITALS: BP 107/65; PULSE 66; TEMP 36.3; O2SAT 98
--- NOTE | 2016-06-09 12:28 | Discharge Summary ---
Discharge Summary Date of Service Jun 09, 2016. Discharge Summary Admission Date: May 31, 2016 at 16:08 Discharge Date: Jun 07, 2016 Discharge Disposition: retirement facility ([facility] ) Principal Diagnosis: acute/chronic hypoxic & hypercarbic respiratory failure Problems/Secondary Diagnoses: 1. bilateral pneumonia, likely due to HCAP 2. concern for aspiration 3. acute bronchitis with prior dx of COPD 4. metabolic encephalopathy - resolved 5. probable underlying dementia vs cognitive impairment 6. acute/chronic diastolic CHF 7. T2DM 8. CAD 9. +troponin - likely myocardial demand ischemia 10. atrial fibrillation on chronic coumadin 11. hypokalemia - resolved 12. hypothyroidism 13. HTN 14. hyperlipidemia 15. PAD 16. right AKA status 17. severe aortic stenosis 18. pulmonary HTN 19. pacemaker status Immunizations: Have You Had Influenza Vaccine: No Influenza Vaccine Date: Jun 01, 2011 History of Tetanus Vaccine?: utd History of Pneumococcal: Yes Pneumococcal Date: Sep 02, 2012 History of Hepatitis B Vaccine: No Procedures: 1. CT chest: IMPRESSION: 1. Borderline enlarged mediastinal and hilar lymph nodes, slightly smaller than on the prior September 2013 study 2. Right middle lobe and lingular atelectatic changes 3. Subtle bilateral groundglass nodular opacities with upper lung zone predominance. An infectious/inflammatory etiology is suspected. 4. No significant pleural effusions 5. Advanced atheromatous changes within the aorta 6. No evidence of subpleural reticulation. No evidence of honeycombing. 2. echocardiogram: * -- Conclusions -- * The left ventricle is normal in size. * There is moderate concentric left ventricular hypertrophy. * Left ventricular systolic function is normal. * Ejection Fraction = 65-70%. * Wall motion is limited but no obvious regional wall motion abnormality. * The right ventricle is normal in size and function. * The right ventricular systolic function is normal as assessed by tricuspid annular plane systolic excursion (TAPSE) (normal >1.5 cm). * The left atrium is severely dilated. * Heavily calcified AoV with severe aortic stenosis (DI 0.21 and MG 33 mm/hg) * Mild aortic regurgitation * The gradient may be underestimated due to the study being performed seated. * There is severe mitral annular calcification. 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 * There is mild to moderate tricuspid regurgitation. * Right ventricular systolic pressure is elevated at >60mmHg. * Dilated inferior vena cava with reduced collapsibility with sniff indicates an elevated right atrial pressure of 15 mmHg * E to e' ratio of 20 suggesting elevated LA pressures. * Compared to 12/2013 no significant change. Consultations: PT, OT, speech Medication Reconciliation New Medications: Tiotropium [place] (Spiriva Handihaler) 5 Puff/90 Mcg Aerp 1 PUFF PO DAILY, #1 INHALER 2 Refills Benzonatate (Benzonatate) 100 Mg Cap 100 MG PO TID, #30 CAP 0 Refills Guaifenesin Ext Rel (Mucinex Ext Rel) 600 Mg Tabcr 1200 MG PO Q12 for 7 Days, #14 0 Refills Ipratropium-Albuterol (Duoneb) 3 Ml Nebu 3 ML INH Q4H PRN for sob/wheeze/cough, #1 BOX 2 Refills Prednisone (Prednisone) 10 Mg Tab 10 MG PO DIRECTED, #24 TAB 0 Refills starting 06/08/16: take 3 tabs daily x 3 days, then 2 tabs daily x 5 days, then 1 tab daily x 5 days, then stop. Take with food. Changed Medications: Albuterol Sulf (Proventil 0.083% 2.5MG/3ML) 2.5 Mg/3 Ml Nebu 2.5 MG INH Q6H, #1 BOX 2 Refills (Changed from: Q4; Removed Reason; Refills: ) Insulin Glargine (Lantus) 100 Unit/Ml Inj 30 UNITS SC QPM, #1 VIAL 2 Refills (Changed from: 35 UNITS) Continued Medications: Acetaminophen Tab (Tylenol) 325 Mg Tab 650 MG PO Q6 PRN for Pain or Fever, TAB FOR TEMP >101F. NOT TO EXCEED 3GM/24HRS Alendronate Sodium (Binosto) 70 Mg Tab 70 MG PO WK EVERY THURSDAY Amlodipine (Norvasc) 5 Mg Tab 5 MG PO DAILY, TAB Atorvastatin (Lipitor) 40 Mg Tab 40 MG PO QPM, TAB Bepotastine Besilate (Bepreve) 1.5 % Christiano 1 DROP OPB BID Bisacodyl (Bisac-Evac) 10 Mg Sup 1 SUPP DC UD PRN for NO BM X4 DAYS Budesonide/Formoterol Fumarate (Symbicort 160/4.5 Inhaler ) Aero 2 PUFFS INH BID, INHALER Bumetanide (Bumetanide) 0.5 Mg Tab 1.5 MG PO BID Calcium Carbonate-Vitamin D (Oscal 500/200 D-3) 1 Tab Tab 1 TAB PO BID Cholecalciferol (Vitamin D3) 2,000 Unit Tab 2000 UNITS PO DAILY for 90 Days, TAB 3 Refills Clopidogrel (Plavix) 75 Mg Tab 75 MG PO DAILY, TAB Dextrose (Diabetic Use) (Insta-Glucose) 77.4 % Gel 1 APPLN MT UD PRN for HYPOGLYCEMIA PROTOCOL Digoxin (Digoxin) 0.125 Mg Tab 0.125 MG PO QPM Escitalopram Oxalate (Lexapro) 10 Mg Tab 10 MG PO DAILY, TAB Gabapentin (Neurontin) 300 Mg Cap 900 MG PO TID, CAP Glucagon (Glucagon Emergency Kit) 1 Mg Kit 1 MG IM UD PRN for HYPOGLYCEMIA Insulin Aspart (Novolog Penfill) 100 Unit/Ml Inj 4 UNITS SC AC Insulin Aspart (Novolog) 100 Units/Ml Inj 100 SC DIRECTED inject per sliding scale 0-150= 0 units, 151-200 = 6 units, 201-250= 8 units, 251-300 = 10 units, 301-350 =12 units, 351-400 = 14 units, 401-450 = 16 units greater than 451 call Latanoprost (Xalatan 0.005% Oph Anna) 0.005 % Anna 1 DROPS OPB HS, #2.5 ML 3 Refills Levothyroxine Sodium (Levothyroxine Sodium) 25 Mcg Tab 25 MCG PO Q2D for 30 Days, TAB 5 Refills Magnesium Hydroxide (Milk Of Magnesia) 30 Ml Susp 30 ML PO UD PRN for NO BM X 9 SHIFTS, ML Magnesium Oxide (Mag-Ox) 400 Mg Tab 400 MG PO BID, TAB Metoprolol Tartrate (Lopressor) (Lopressor) 25 Mg Tab 25 MG PO BID, TAB Multivitamin (Multivitamin) Tab 1 TAB PO DAILY, TAB Oxygen (Oxygen) Gas 3 LITER NA CONTINOUS Potassium Chloride (Potassium Chloride Er) 10 Meq Tab 10 MEQ PO DAILY Ropinirole (Requip) 0.5 Mg Tab 0.5 MG PO DAILY, TAB Saline (Saline Nasal [place]) 0.65 % Spr 2 SPRAYS ADELA BID Sodium Phosphate/Biphosphate (Fleet Enema) Emy 1 EA DC UD PRN for NO RESULTS FROM SUPPOSITORY , BTL Warfarin Sodium (Coumadin) 4 Mg Tab 4 MG PO DAILY Discontinued Medications: Umeclidinium [place] (Incruse Ellipta) 62.5 Mcg/Inh Inh 1 PUFF INH DAILY Referrals At Discharge Follow up Referrals: [facility] Referral - Within 1 Week with Nick Greenwood, DO Discharge Exam Physical Exam: General Appearance: no apparent distress, + obese ENT: pharynx normal Neck: no JVD Respiratory/Chest: no respiratory distress, no accessory muscle use, + wheezing (mild end-exp) Cardiovascular: regular rate, rhythm, no gallop, + systolic murmur (2-3/6 RUSB/apex) Abdomen / GI: normal bowel sounds, non tender, soft, no organomegaly Extremities: no pedal edema (left leg), + pertinent finding (right AKA status) Neurologic/Psychiatric: alert, + disoriented Skin: + pertinent finding (stasis skin changes on left ramires) Hospital Course HISTORY OF PRESENT ILLNESS: Patient is an 86yo female with chronic respiratory failure on continuous NC O2 at [facility] who presented with complaints of increasing dyspnea over the last few days but became drastically worse on the AM of presentation. Pt was confused and noted to be in respiratory distress at time of presentation. Patient was hunched over with coarse breathing. Patient was recently admitted for pneumonia last month and did well with IV antibiotics. Upon arrival to ER pt noted to be febrile and tachypneic. CXR showed congestive heart failure. HOSPITAL COURSE: The patient's acute on chronic hypoxic/hypercarbic respiratory failure was felt to be from a combination of acute bronchitis, bilateral pneumonia, and acute/ chronic diastolic CHF. She was treated with a full 7-day course of IV antibiotic which included coverage for gram negative pathogens, was diuresed for several days, and received IV/PO steroids. At time of discharge her O2 requirement was back to her baseline amount of 3 liters continuously. Over the last 3-4 months the patient had been hospitalized a total of 3 times for pneumonia. Due to the recurrent nature of her admissions there was concern she was aspirating. She was seen by speech therapy and there was no overt aspiration during bedside evaluation. However, her diet was changed to mechanical soft. CT chest was obtained this admission showing bilateral upper lobe infiltrates. The exact etiology of these infiltrates was not certain. Sed rate was noted to be markedly elevated during this stay. She will discharge back to [facility] on a slow prednisone taper. Diagnostic etiologies would include MACHINE UMBRELLA TIPPER vs nonbacterial infection vs some other form of inflammatory lung disease. It is highly recommended she have formal pulmonary consultation with [facility] in light of her recurrent respiratory issues. Other issues addressed while here included metabolic encephalopathy (resolved), uncontrolled T2DM, HTN, +troponin (felt to be myocardial demand ischemia), chronic anticoagulation, and hypokalemia. At discharge her INR was 2.5 and sed rate was 62. It is advised that she have her INR repeated within 5 days for stability. Lastly, a lengthy discussion was held with her son who acts as her POA. The patient's complicated medical situation was discussed thoroughly with her son. He was agreeable to DNR status. We also discussed her worsening aortic stenosis and that this would begin to give her significant troubles in the next 1-2 years. He was advised that she is not a surgical candidate for the . Total Time Spent: Greater than 30 minutes This includes examination of the patient, discharge planning, medication reconciliation, and communication with other providers. Discharge Instructions Please refer to the electronic Patient Visit Report (Discharge Instructions) for additional information. Follow-Up 1. see [facility] within 1 week if possible 2. see [facility] medical delivery driver within 48 hours Additional Copies To Nick Greenwood DO; [facility]; RomJane guido
== END 2016-06-07 11:38 | DRG 871 ==
LOC: ENRESERVTM → ENRESERVDT → EDBD 13:46 → C.EDA 13:48 → C.2T 16:08 → C.MS2W 06-03 19:56
PROVIDERS: ADMIT Hospitalist; ATTEND Internal Medicine
DX: A41.9 Sepsis, unspecified organism (principal); J96.21 Acute and chronic respiratory failure with hypoxia; I21.4 Non-ST elevation (NSTEMI) myocardial infarction; I50.33 Acute on chronic diastolic (congestive) heart failure; G93.41 Metabolic encephalopathy; J18.9 Pneumonia, unspecified organism; J96.22 Acute and chronic respiratory failure with hypercapnia; J44.0 Chronic obstructive pulmonary disease with (acute) lower respiratory infection; J20.9 Acute bronchitis, unspecified; E87.6 Hypokalemia; I25.10 Atherosclerotic heart disease of native coronary artery without angina pectoris; I48.91 Unspecified atrial fibrillation; I12.9 Hypertensive chronic kidney disease with stage 1 through stage 4 chronic kidney disease, or unspecified chronic kidney disease; N18.2 Chronic kidney disease, stage 2 (mild); E11.22 Type 2 diabetes mellitus with diabetic chronic kidney disease; E11.40 Type 2 diabetes mellitus with diabetic neuropathy, unspecified; E78.5 Hyperlipidemia, unspecified; E78.00 Pure hypercholesterolemia, unspecified; F32.9 Major depressive disorder, single episode, unspecified; H40.9 Unspecified glaucoma; E03.9 Hypothyroidism, unspecified; G25.81 Restless legs syndrome; T50.1X5A Adverse effect of loop [high-ceiling] diuretics, initial encounter; Z79.01 Long term (current) use of anticoagulants; Z79.02 Long term (current) use of antithrombotics/antiplatelets; Z79.4 Long term (current) use of insulin; Z79.899 Other long term (current) drug therapy; Z89.611 Acquired absence of right leg above knee; Z66 Do not resuscitate

== ENCOUNTER → 2016-07-07 | Outpatient (CLI) | payer OTHER ==
[~2016-07-07] MED LIST changes: +ACET650S10 PR; +ALBINS/ INH; -ALBU2SYP9 INH; +AMOX500C3 PO; +APIX1TAB PO; +BENZ100C7 PO; +BISA10SU7 PR; +BMX1 PO; +CALC200T PO; -CALC600T9 PO; +CEFD300C3 PO; +CMD4 PO; +DEXT40GE MT; +DOXY100C76 PO; +DRGTP25 TD; +FRRS300 PO; +GFNSR600 PO; +GLGKIT IM; +GUAI100S16 PO; +INSDGIPEN SC; +IPRASOL4 INH; +LACT1TAB26 PO; +LIQUID PROTEIN PO; +LNX125 PO; +MCRK20 PO; +MISCCAP80 PO; +MOML PO; +MTR500 PO; +ONDA4TAB10 SL; +PRD10 PO; -SENN1TAB77 PO; +SERT50TA PO; +SODIENE PR; +SPRIN PO; +TRIA0.1C2 TOP; +UMEC1AER PO; -UMEC1INH INH; +WARF3TAB6 PO; +WARF4TAB8 PO; +ZNTT/150 PO; -[UNRECOGNIZED DRUG - CODE] PO
[2016-07-07 09:46] LABS: INR 1.7 (0.9-1.1); PROTHROMBIN TIME (PATIENT) 18.3 SECONDS (9.0-12.0)
== END ==
LOC: C.LABUPBEA 09:16 → EDSTATUS 08-18 12:03
PROVIDERS: ATTEND Nurse Practitioner Family
DX: I48.91 Unspecified atrial fibrillation (principal)

== ENCOUNTER → 2016-07-11 | Outpatient (CLI) | payer OTHER ==
[~2016-07-11] MED LIST changes: -ACET650S10 PR; -APIX1TAB PO; -LACT1TAB26 PO; -ONDA4TAB10 SL; -UMEC1AER PO
[2016-07-11 10:33] LABS: INR 1.8 (0.9-1.1); PROTHROMBIN TIME (PATIENT) 19.9 SECONDS (9.0-12.0)
== END ==
LOC: C.LABUPBEA 09:40 → EDSTATUS 08-18 12:05
PROVIDERS: ATTEND Nurse Practitioner Family
DX: I48.91 Unspecified atrial fibrillation (principal)

== ENCOUNTER → 2016-07-12 | Outpatient (CLI) | payer OTHER ==
[2016-07-12 06:35] LABS: URINE APPEARANCE TURBID (CLEAR); URINE BILIRUBIN NEG (NEG); URINE COLOR YELLOW; URINE NITRITE POS (NEG); URINE SPECIFIC GRAVITY 1.011 (1.000-1.030); UROBILINOGEN NEG (NEG)
[2016-07-12 06:41] LABS: MANUAL MICROSCOPIC REQUIRED? NO; REVIEW REQ? YES
== END ==
LOC: C.LABUPBEA 09:37 → EDSTATUS 09:37
PROVIDERS: ATTEND Family Medicine
DX: N39.0 Urinary tract infection, site not specified (principal)

== ENCOUNTER → 2016-07-14 | Outpatient (CLI) | payer OTHER ==
[2016-07-14 08:56] LABS: INR 2.2 (0.9-1.1); PROTHROMBIN TIME (PATIENT) 24.1 SECONDS (9.0-12.0)
== END ==
LOC: C.LABUPBEA 08:21 → EDSTATUS 08-18 12:08
PROVIDERS: ATTEND Family Medicine
DX: I48.91 Unspecified atrial fibrillation (principal); M62.81 Muscle weakness (generalized)

== ENCOUNTER → 2016-07-16 | Outpatient (CLI) | payer OTHER ==
[2016-07-16 10:05] LABS: INR 2.9 (0.9-1.1); PROTHROMBIN TIME (PATIENT) 32.6 SECONDS (9.0-12.0)
== END ==
LOC: C.LABUPBEA 09:33 → EDSTATUS 08-18 12:10
PROVIDERS: ATTEND Nurse Practitioner Family
DX: I48.91 Unspecified atrial fibrillation (principal)

== ENCOUNTER → 2016-07-18 | Outpatient (CLI) | payer OTHER ==
[2016-07-18 09:15] LABS: INR 3.2 (0.9-1.1); PROTHROMBIN TIME (PATIENT) 35.4 SECONDS (9.0-12.0)
== END ==
LOC: C.LABUPBEA 08:30 → EDSTATUS 08-18 12:12
PROVIDERS: ATTEND Nurse Practitioner Family
DX: I48.91 Unspecified atrial fibrillation (principal)

== ENCOUNTER → 2016-07-25 | Outpatient (CLI) | payer OTHER ==
[2016-07-25 10:23] LABS: INR 1.6 (0.9-1.1); PROTHROMBIN TIME (PATIENT) 17.1 SECONDS (9.0-12.0)
== END ==
LOC: C.LABUPBEA 09:58 → EDSTATUS 08-18 12:27
PROVIDERS: ATTEND Nurse Practitioner Family
DX: I48.91 Unspecified atrial fibrillation (principal)

== ENCOUNTER → 2016-07-30 | Outpatient (CLI) | payer OTHER ==
[2016-07-30 09:59] LABS: INR 1.4 (0.9-1.1); PROTHROMBIN TIME (PATIENT) 15.6 SECONDS (9.0-12.0)
== END ==
LOC: C.LABUPBEA 08:49 → EDSTATUS 08-18 12:28
PROVIDERS: ATTEND Family Medicine
DX: I48.91 Unspecified atrial fibrillation (principal)

== ENCOUNTER → 2016-08-04 | Outpatient (CLI) | payer OTHER ==
[2016-08-04 05:40] LABS: INR 1.5 (0.9-1.1); PROTHROMBIN TIME (PATIENT) 16.2 SECONDS (9.0-12.0)
== END ==
LOC: EDSTATUS 08:29 → C.LABUPBEA 08:32 → EDSTATUS 12:30
PROVIDERS: ATTEND Nurse Practitioner Family
DX: I48.91 Unspecified atrial fibrillation (principal)

== ENCOUNTER → 2016-08-06 | Outpatient (CLI) | payer OTHER ==
[2016-08-06 09:16] LABS: INR 2.2 (0.9-1.1); PROTHROMBIN TIME (PATIENT) 23.9 SECONDS (9.0-12.0)
== END ==
LOC: C.LABUPBEA 08:38 → EDSTATUS 08-18 12:32
PROVIDERS: ATTEND Nurse Practitioner Family
DX: I48.91 Unspecified atrial fibrillation (principal)

== ENCOUNTER → 2016-08-26 | Outpatient (CLI) | payer OTHER ==
[2016-08-26 11:07] LABS: INR 3.1 (0.9-1.1); PROTHROMBIN TIME (PATIENT) 34.8 SECONDS (9.0-12.0)
== END ==
LOC: C.LABUPBEA 09:59
PROVIDERS: ATTEND Family Medicine
DX: I48.91 Unspecified atrial fibrillation (principal)

== ENCOUNTER → 2016-08-28 | Outpatient (CLI) | payer OTHER ==
[2016-08-28 10:51] LABS: PROTHROMBIN TIME (PATIENT) 22.1 SECONDS (9.0-12.0)
== END ==
LOC: C.LABUPBEA 09:22
PROVIDERS: ATTEND Nurse Practitioner Family
DX: I48.91 Unspecified atrial fibrillation (principal)

== ENCOUNTER 2016-09-07 08:35 | Inpatient (IN) | payer OTHER ==
[~2016-09-07] VITALS: Ht 154.9 cm; Wt 107.0 kg
[2016-09-07] VITALS (8 sets, daily range): BP systolic 94–117; BP diastolic 65–68; PULSE 65–86; TEMP 36.6–36.7; O2SAT 92–97; BMI 44.6
[~2016-09-07 08:35] MED LIST changes: -AMOX500C3 PO; -BMX1 PO; -CEFD300C3 PO; -CMD4 PO; -DOXY100C76 PO; -DRGTP25 TD; -FRRS300 PO; -GUAI100S16 PO; -INSDGIPEN SC; -LIQUID PROTEIN PO; -MCRK20 PO; -MISCCAP80 PO; -MTR500 PO; -SERT50TA PO; -TRIA0.1C2 TOP; -WARF3TAB PO; -WARF3TAB6 PO; -WARF4TAB8 PO; -ZNTT/150 PO
--- NOTE | 2016-09-07 08:47 | EMERGENCY ROOM VISIT NOTE ---
History Report prepared by Bill: Baron Dillard Under the Supervision of: Dr. Avi Burnett M.D. First contact with patient: 08:38 Stated Complaint: SHORTNESS OF BREATH History of Present Illness The patient is an 86 year old female who presents to the Emergency Room with complaints of shortness of breath. The patient comes from [facility] who state the patient's oxygen saturation was low today. They increased her oxygen form 3 liters to 6 liters today. Upon arrival to the Emergency Department the patient was 76% on room air. The patient is currently complaining of shortness of breath as well as a cough. She denies any chest pain , or recent vomiting episodes. Source of History: patient, longterm notes, nursing staff Position: other (Respiratory) Quality: other (SOB) Associated Symptoms: + cough, No chest pain, No vomiting Note: Low oxygen Saturation Review of Systems See HPI for pertinent positives & negatives. A total of 10 systems reviewed and were otherwise negative. 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 (14) PERIPH VASCULAR DIS NOS (15) Recurrent pneumonia Old medical records were reviewed. Nurse's notes were reviewed and I agree with. Family History Unobtainable due to patient's condition Social History Smoking Status: Unknown if Ever Smoked Alcohol Use: none Drug Use: none Marital Status: Housing Status: longterm Occupation Status: retired Current/Historical Medications Scheduled Albuterol Sulf (Proventil 0.083% 2.5MG/3ML), 2.5 MG INH Q6H Alendronate Sodium (Binosto), 70 MG PO WK Amlodipine (Norvasc), 5 MG PO DAILY Atorvastatin (Lipitor), 40 MG PO QPM Benzonatate (Benzonatate), 100 MG PO TID Bepotastine Besilate (Bepreve), 1 DROP OPB BID Budesonide/Formoterol Fumarate (Symbicort 160/4.5 Inhaler ), 2 PUFFS INH BID Bumetanide (Bumetanide), 1.5 MG PO BID Calcium Carbonate-Vitamin D (Oscal 500/200 D-3), 1 TAB PO BID Cholecalciferol (Vitamin D3), 2,000 UNITS PO DAILY Clopidogrel (Plavix), 75 MG PO DAILY Digoxin (Digoxin), 0.125 MG PO QPM Gabapentin (Neurontin), 900 MG PO TID Guaifenesin (Guaifenesin), 10 ML PO TID Guaifenesin Ext Rel (Mucinex Ext Rel), 1,200 MG PO Q12 Home O2 Therapy (Oxygen), 3 LITER NA CONTINOUS Insulin Aspart (Novolog Penfill), 4 UNITS SC AC Insulin Aspart (Novolog), 100 SC DIRECTED Insulin Glargine (Lantus), 30 UNITS SC QPM Latanoprost (Xalatan 0.005% Oph Anna), 1 DROPS OPB HS Levothyroxine Sodium (Levothyroxine Sodium), 25 MCG PO Q2D Magnesium Oxide (Mag-Ox), 400 MG PO BID Metoprolol Tartrate (Lopressor) (Lopressor), 25 MG PO BID Multivitamin (Multivitamin), 1 TAB PO DAILY Potassium Chloride (Potassium Chloride Er), 10 MEQ PO DAILY Prednisone (Prednisone), 10 MG PO DIRECTED Ropinirole (Requip), 0.5 MG PO DAILY Saline (Saline Nasal [place]), 2 SPRAYS [place]LA BID Sertraline (Zoloft), 50 MG PO HS Tiotropium [place] (Spiriva Handihaler), 1 PUFF PO DAILY Warfarin Sodium (Coumadin), 3 MG PO DAILY [Liquid Protein], 30 ML PO BID Scheduled PRN Acetaminophen Tab (Tylenol), 650 MG PO Q6 PRN for Pain or Fever Bisacodyl (Bisac-Evac), 1 SUPP WY UD PRN for NO BM X4 DAYS Dextrose (Diabetic Use) (Insta-Glucose), 1 APPLN MT UD PRN for HYPOGLYCEMIA PROTOCOL Glucagon (Glucagon Emergency Kit), 1 MG IM UD PRN for HYPOGLYCEMIA Ipratropium-Albuterol (Duoneb), 3 ML INH Q4H PRN for sob/wheeze/cough Magnesium Hydroxide (Milk Of Magnesia), 30 ML PO UD PRN for NO BM X 9 SHIFTS Sodium Phosphate/Biphosphate (Fleet Enema), 1 EA W[place] UD PRN for NO RESULTS FROM SUPPOSITORY Allergies Coded Allergies: RICHARD Inhibitors (Verified Allergy, Unknown, unknown, 09/07/16) Aspirin (Verified Allergy, Unknown, unknown, 09/07/16) [place] Atenolol (Verified Allergy, Unknown, unknown; TAKES TOPROL XL W/O PROBLEM , 09/07/16) Cefprozil (Verified Allergy, Unknown, unknown, 09/07/16) TOLERATED ROCEPHIN 02/2014 FOR MULTIPLE DOSES Ciprofloxacin (Verified Allergy, Unknown, unknown, 09/07/16) Codeine (Verified Allergy, Unknown, unknown, 09/07/16) Fluticasone (Verified Allergy, Unknown, Unknown, 09/07/16) Furosemide (Verified Allergy, Unknown, ., 09/07/16) Hydrochlorothiazide (Verified Allergy, Unknown, unknown, 09/07/16) Hydrochlorothiazide w/Triamterene (Verified Allergy, Unknown, unknown, 09/07) Ibuprofen (Verified Allergy, Unknown, unknown; HAS TAKEN ASA W/O PROBLEM, 09/07/16) Lisinopril (Verified Allergy, Unknown, unknown, 09/07/16) Meperidine (Verified Allergy, Unknown, unknown, 09/07/16) Niacinamide (Verified Allergy, Unknown, NICOTINAMIDE, 09/07/16) Penicillins (Verified Allergy, Unknown, UNKNOWN, 09/07/16) TOLERATED ROCEPHIN 02/2014 FOR MULTIPLE DOSES Quinolones (Verified Allergy, Unknown, 09/07/16) Rofecoxib (Verified Allergy, Unknown, unknown, 09/07/16) Salmeterol (Verified Allergy, Unknown, Unknown, 09/07/16) Spironolactone (Verified Allergy, Unknown, unknown, 09/07/16) Statins (Verified Allergy, Unknown, unknown, 09/07/16) Sulfa Antibiotics (Verified Allergy, Unknown, ., 09/07/16) Physical Exam Vital Signs Date Time Temp Pulse Resp B/P (MAP) Pulse Ox O2 Delivery O2 Flow Rate FiO2 09/07/16 10:36 93 Nasal Cannula 4.0 09/07/16 10:26 74 16 180/95 93 Nasal Cannula 4.0 09/07/16 09:35 61 16 180/75 95 Nebulizer 09/07/16 08:47 62 09/07/16 08:44 37.4 83 20 158/60 76 Room Air Physical Exam General: Older female exhibiting mild increased work of breathing. Answers most questions appropriately. Normal speech. Hard of hearing. HEENT: Normal cephalic atraumatic. Pupils are equal round and reactive to light. Sclera are anicteric. Extraocular movements are intact. Oropharynx is pink with moist mucous membranes. No swelling of the mouth lips or tongue. Neck: Supple with a midline trachea. No meningeal signs or stiffness, no JVD or bruits. No Stridor. Chest: Clear to auscultation bilaterally. No wheezes or rhonchi. No increased work of breathing. Heart: regular rate with 3/6 systolic murmur. Abdomen: Soft nontender, nondistended without rebound guarding or rigidity. Extremities: No cyanosis clubbing or edema. No calf tenderness or assymetry Spine/Back. Non tender to palpation. No CVA tenderness Skin: Good turgor without rashes. Neurologic exam: Cranial nerves two through 12 are intact. Motor and sensation are intact and symmetrical throughout. Medical Decision & Procedures ER Provider Diagnostic Interpretation: Radiology results as stated below per my review and radiologist interpretation: SINGLE VIEW CHEST My Review: increased interstitial markings, possible CHF. CLINICAL HISTORY: Atypical chest pain. FINDINGS: An AP, portable, upright chest radiograph is compared to study dated 06/01/2016 and correlated with chest CT dated 06/06/2016. The examination is degraded by portable technique and patient rotation. A single lead cardiac pacemaker is unchanged in position. The heart is enlarged and there is atherosclerotic calcification of the thoracic aorta. There is pulmonary vascular congestion. There are multifocal bilateral airspace opacities. Small pleural effusions are identified. Apical scarring is observed. There is no pneumothorax. The skeletal structures are osteopenic. The bony thorax is grossly intact. IMPRESSION: 1. Cardiomegaly and cardiac pacemaker. There is evidence of congestive failure. 2. There are multifocal bilateral airspace opacities. This likely represents interstitial edema. Cortical clinically for evidence of superimposed pneumonia. Radiographic follow-up to resolution is recommended. 3. Small pleural effusions are identified. Electronically signed by: Howard Campos M.D. 09/07/2016 9:11 AM Dictated Date/Time: 09/07/2016 9:10 AM Laboratory Results 09/07/16 08:45 Red Blood Count 4.07, Mean Corpuscular Volume 80.1, Mean Corpuscular Hemoglobin 23.1, Mean Corpuscular Hemoglobin Concent 28.8, Mean Platelet Volume 10.0, Neutrophils (%) (Auto) 69.7, Lymphocytes (%) (Auto) 18.4, Monocytes (%) (Auto) 8.6, Eosinophils (%) (Auto) 2.7, Basophils (%) (Auto) 0.4, Neutrophils # (Auto) 6.35, Lymphocytes # (Auto) 1.68, Monocytes # (Auto) 0.78, Eosinophils # (Auto) 0.25, Basophils # (Auto) 0.04 09/07/16 08:45 Test 09/07/16 08:45 09/07/16 08:47 09/07/16 08:54 09/07/16 08:56 White Blood Count 9.12 K/uL (4.8-10.8) Red Blood Count 4.07 M/uL (4.2-5.4) Hemoglobin 9.4 g/dL (12.0-16.0) Hematocrit 32.6 % (37-47) Mean Corpuscular Volume 80.1 fL (80-100) Mean Corpuscular Hemoglobin 23.1 pg (25-34) Mean Corpuscular Hemoglobin Concent 28.8 g/dl (32-36) Platelet Count 271 K/uL (130-400) Mean Platelet Volume 10.0 fL (7.4-10.4) Neutrophils (%) (Auto) 69.7 % Lymphocytes (%) (Auto) 18.4 % Monocytes (%) (Auto) 8.6 % Eosinophils (%) (Auto) 2.7 % Basophils (%) (Auto) 0.4 % Neutrophils # (Auto) 6.35 K/uL (1.4-6.5) Lymphocytes # (Auto) 1.68 K/uL (1.2-3.4) Monocytes # (Auto) 0.78 K/uL (0.11-0.59) Eosinophils # (Auto) 0.25 K/uL (0-0.5) Basophils # (Auto) 0.04 K/uL (0-0.2) RDW Standard Deviation 55.1 fL (36.4-46.3) RDW Coefficient of Variation 18.7 % (11.5-14.5) Immature Granulocyte % (Auto) 0.2 % Immature Granulocyte # (Auto) 0.02 K/uL (0.00-0.02) Hypochromasia PRESENT Prothrombin Time 35.4 SECONDS (9.0-12.0) Prothromb Time International Ratio 3.2 (0.9-1.1) Activated Partial Thromboplast Time 40.7 SECONDS (21.0-31.0) Partial Thromboplastin Ratio 1.6 Anion Gap 4.0 mmol/L (3-11) Est Creatinine Clear Calc Drug Dose 61.2 ml/min Estimated GFR () 85.8 Estimated GFR (Non- 74.1 BUN/Creatinine Ratio 34.9 (10-20) Calcium Level 9.1 mg/dl (8.5-10.1) Magnesium Level 2.3 mg/dl (1.8-2.4) Total Bilirubin 0.6 mg/dl (0.2-1) Direct Bilirubin 0.2 mg/dl (0-0.2) Aspartate Amino Transf (AST/SGOT) 34 U/L (15-37) Alanine Aminotransferase (ALT/SGPT) 33 U/L (12-78) Alkaline Phosphatase 162 U/L (45-117) Total Creatine Kinase 85 U/L (26-192) Creatine Kinase MB 1.1 ng/ml (0.5-3.6) Total Protein 6.7 gm/dl (6.4-8.2) Albumin 2.6 gm/dl (3.4-5.0) Lipase 59 U/L (73-393) Creatine Kinase MB Ratio (0-3.0) Bedside Lactic Acid Venous 0.90 mmol/L (0.90-1.70) Bedside Troponin I < 0.030 ng/ml (0-0.045) ZN-Eic-Y-Type Natriuretic Peptide 2960 pg/ml (0-1800) Test 09/07/16 09:28 Venous Blood pH 7.43 (7.36-7.41) Venous Blood Partial Pressure CO2 58 mmHg (38.0-50.0) Venous Blood Partial Pressure O2 66 mmHg Venous Blood HCO3 37 mmol/L Venous Blood Oxygen Saturation 90.7 % Venous Blood Base Excess 11.6 mmol/L Laboratory studies as stated above per my review. Medications Administered Medications (Trade) Dose Ordered Sig/Tariq Route Start Time Stop Time Status Last Admin Dose Admin Albuterol/ Ipratropium (Duoneb) 3 ml NOW STAT INH 09/07/16 08:48 09/07/16 08:51 DC 09/07/16 09:35 3 ML Ceftriaxone Sodium (Rocephin Inj) 1 gm NOW STAT IV 09/07/16 09:56 09/07/16 09:58 DC 09/07/16 11:07 1 GM Methylprednisolone Sodium Succinate (Solu-Medrol IV) 125 mg NOW STAT IV 09/07/16 09:56 09/07/16 09:58 DC 09/07/16 11:06 125 MG Insulin Aspart (novoLOG ASPART) SLIDING SCALE PARAMETER ACHS SC 09/07/16 11:00 10/07/16 10:59 09/07/16 13:44 2 UNITS ECG Indication: SOB/dyspnea Rate (beats per minute): 65 Rhythm: atrial fibrillation, other (Intermittently paced rhtythm) Findings: nonspecific-ST abn Comparison ECG Date: 06/02/2016 Change: Paced Rhythm is now present. ED Course 0839: Past medical records reviewed. The patient was evaluated in room A3, and a complete history and physical examination were performed. 0848: Ordered Duoneb 3 mL INH. 0956: Ordered Solu-Medrol 125 mg IV, Rocephin 1 gm IV, Furosemide 40 mg IV. 1012: I discussed the case with Dr. Ray - [facility] Hospitalist, he will evaluate the patient for further treatment. 1025: The nursing staff informed me that they have catheterized the patient and drained a liter of urine. I will hold the Lasix. Medical Decision Blood pressure Screening: Patient was found to have normal blood pressure on screening and does not require follow-up. Medication Reconciliation: I attest that I have personally reviewed the patient' s current medication list. Differential Diagnosis includes: Respiratory Failure, CHF, pneumonia, COPD, sepsis, cardiac disease. This patient comes in as described above she's had shortness breath and hypoxemia .she may have a little bit of a cough as well. No reported fever. She has a very complex medical history. IV access was established and blood work was obtained including blood cultures and lactic acid. Chest x-ray and EKG were obtained. Her EKG does not suggest acute coronary syndrome or significant arrhythmia, she does have pacemaker firing. Chest x-ray shows findings likely consistent with CHF or possible pneumonia. She has no having white count. She was given albuterol Atrovent neb she was placed on nasal cannula oxygen. She was given some IV Solu-Medrol and IV Rocephin, she has multiple allergies and she's had Rocephin here before without problems. I did order IV Lasix as well as for CHF component. Given the patient's illness and immobility did order a Myers catheter and when this was placed over liter of urine was obtained before the Lasix was given and thus we're to monitor her fluid output before she gets any more Lasix. I have consulted Dr. Ray. I think her respiratory failure/hypoxemia is likely multifactorial there is a CHF and likely COPD component possible infectious component as well. She was admitted for further treatment and evaluation Consults Time Called: 1005 Consulting Physician: Dr. Flor KELLY Hospitalist Returned Call: [phone] I discussed the case with Dr. Flor KELLY Hospitalist, he will evaluate the patient for further treatment. Impression Primary Impression: Respiratory failure Additional Impressions: CHF (congestive heart failure) Pneumonia COPD (chronic obstructive pulmonary disease) Scribe Attestation The scribe's documentation has been prepared under my direction and personally reviewed by me in its entirety. I confirm that the note above accurately reflects all work, treatment, procedures, and medical decision making performed by me. Departure Information Dispostion Being Evaluated By Hospitalist Referrals Jane Victoria (PCP) Problem Qualifiers
[2016-09-07] MEDS ORDERED: ALBUT/IPRATROP 3MG/0.5MG NEB 3 ML VIAL INH STA (08:48)
--- NOTE | 2016-09-07 09:12 | DIAGNOSTIC IMAGING REPORT ---
SINGLE VIEW CHEST CLINICAL HISTORY: Atypical chest pain. FINDINGS: An AP, portable, upright chest radiograph is compared to study dated 06/01/2016 and correlated with chest CT dated 06/06/2016. The examination is degraded by portable technique and patient rotation. A single lead cardiac pacemaker is unchanged in position. The heart is enlarged and there is atherosclerotic calcification of the thoracic aorta. There is pulmonary vascular congestion. There are multifocal bilateral airspace opacities. Small pleural effusions are identified. Apical scarring is observed. There is no pneumothorax. The skeletal structures are osteopenic. The bony thorax is grossly intact. IMPRESSION: 1. Cardiomegaly and cardiac pacemaker. There is evidence of congestive failure. 2. There are multifocal bilateral airspace opacities. This likely represents interstitial edema. Cortical clinically for evidence of superimposed pneumonia. Radiographic follow-up to resolution is recommended. 3. Small pleural effusions are identified. Electronically signed by: Howard Campos M.D. 09/07/2016 9:11 AM Dictated Date/Time: 09/07/2016 9:10 AM
[2016-09-07 09:15] LABS: POINT OF CARE PRO-BNP 2960 pg/ml (0-1800); POINT OF CARE TROPONIN I < 0.030 ng/ml (0-0.045)
[2016-09-07] MEDS ORDERED: WARF3TAB PO (09:18)
[2016-09-07 09:20] LABS: INR 3.2 (0.9-1.1); PARTIAL THROMBOPLASTIN RATIO 1.6; PROTHROMBIN TIME (PATIENT) 35.4 SECONDS (9.0-12.0)
[2016-09-07] MEDS ORDERED: SERT50TA PO (09:22)
[2016-09-07] MEDS ORDERED: LIQUID PROTEIN PO (09:25)
[2016-09-07 09:31] LABS: HEMATOCRIT 32.6 % (37-47); MEAN CELL VOLUME 80.1 fL (80-100); MEAN CORPUSCULAR HEMOGLOBIN 23.1 pg (25-34); MEAN CORPUSCULAR HGB CONC 28.8 g/dl (32-36); PLATELET COUNT 271 K/uL (130-400); RED BLOOD COUNT 4.07 M/uL (4.2-5.4); WHITE BLOOD COUNT 9.12 K/uL (4.8-10.8)
[2016-09-07 09:32] LABS: BUN/CREATININE RATIO 34.9 (10-20); CALCIUM 9.1 mg/dl (8.5-10.1); CREATININE 0.73 mg/dl (0.60-1.20); POTASSIUM 3.7 mmol/L (3.5-5.1)
[2016-09-07] MEDS ORDERED: GUAI100S16 PO (09:32)
[2016-09-07 09:37] LABS: CKMB/CK RATIO 1.3 (0-3.0)
[2016-09-07 09:40] LABS: VEN BLD GAS O2 SATURATION 90.7 %; VEN BLOOD GAS BASE EXCESS 11.6 mmol/L
[2016-09-07] MEDS ORDERED: METHYLPREDNISOLONE 125 MG VIAL IV STA (09:56)
[2016-09-07] MEDS ORDERED: CEFTRIAXONE SOD INJ 1 GM ADDVIAL IV STA (09:56)
[2016-09-07] MEDS ORDERED: FUROSEMIDE 40 MG/4 ML VIAL IV STA (09:56)
[2016-09-07 10:01] LABS: BASO % 0.4 %; BASO ABS # 0.04 K/uL (0-0.2); COMPLETE YES; EOS % 2.7 %; HYPOCHROMIA PRESENT; IG% 0.2 %; LYMPH % 18.4 %; LYMPH ABS # 1.68 K/uL (1.2-3.4); MONO % 8.6 %; NEUT % 69.7 %
[2016-09-07] MEDS ORDERED: ALBUT/IPRATROP 3MG/0.5MG NEB 3 ML VIAL INH PRN (10:45)
[2016-09-07] MEDS ORDERED: ACETAMINOPHEN 325 MG TAB PO PRN ×2 (10:45→11:00)
[2016-09-07] MEDS ORDERED: BISACODYL 10 MG SUPP PR PRN (10:45)
--- NOTE | 2016-09-07 11:12 | History and Physical ---
History & Physical Date & Time of Service: Sep 07, 2016 at 11:06 Chief Complaint: Shortness Of Breath Primary Care Physician: Jane Victoria History of Present Illness Source: patient This patient presents from the [facility]. She presents with increased shortness of breath, EMS providers need to raise her oxygen 6 L a minute from her usual 3 to sustain sats. There is a possibility that she didn' t without nocturnal oxygen or CPAP prior to EMS arriving. She currently is in her usual state of health awake alert and conversive but sleeps easily. Her oxygen requirement has returned to her usual 3 L. In the ER evaluation showed her to have chronic changes on her chest x-ray mild elevation of her BNP but no other acute changes. When interviewed the patient does not provide any new symptoms and she says that the nurses were debating whether to send her to keep her at the half-way. Given her multiple comorbid problems of cardiopulmonary illness. 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 (12) PERIPH VASCULAR DIS NOS Status: Chronic Family History Unobtainable due to patient's condition Social History Smoking Status: Former Smoker Drug Use: none Marital Status: Housing status: assisted living Occupational Status: retired Immunizations History of Influenza Vaccine: No Influenza Vaccine Date: Jun 01, 2011 History of Tetanus Vaccine?: utd History of Pneumococcal: Yes Pneumococcal Date: Sep 02, 2012 History of Hepatitis B Vaccine: No Multi-Drug Resistant Organisms History of MDRO: No Type of MDRO: MRSA Allergies Coded Allergies: RICHARD Inhibitors (Verified Allergy, Unknown, unknown, 09/07/16) Aspirin (Verified Allergy, Unknown, unknown, 09/07/16) [place] Atenolol (Verified Allergy, Unknown, unknown; TAKES TOPROL XL W/O PROBLEM , 09/07/16) Cefprozil (Verified Allergy, Unknown, unknown, 09/07/16) TOLERATED ROCEPHIN 02/2014 FOR MULTIPLE DOSES Ciprofloxacin (Verified Allergy, Unknown, unknown, 09/07/16) Codeine (Verified Allergy, Unknown, unknown, 09/07/16) Fluticasone (Verified Allergy, Unknown, Unknown, 09/07/16) Furosemide (Verified Allergy, Unknown, ., 09/07/16) Hydrochlorothiazide (Verified Allergy, Unknown, unknown, 09/07/16) Hydrochlorothiazide w/Triamterene (Verified Allergy, Unknown, unknown, 09/07) Ibuprofen (Verified Allergy, Unknown, unknown; HAS TAKEN ASA W/O PROBLEM, 09/07/16) Lisinopril (Verified Allergy, Unknown, unknown, 09/07/16) Meperidine (Verified Allergy, Unknown, unknown, 09/07/16) Niacinamide (Verified Allergy, Unknown, NICOTINAMIDE, 09/07/16) Penicillins (Verified Allergy, Unknown, UNKNOWN, 09/07/16) TOLERATED ROCEPHIN 02/2014 FOR MULTIPLE DOSES Quinolones (Verified Allergy, Unknown, 09/07/16) Rofecoxib (Verified Allergy, Unknown, unknown, 09/07/16) Salmeterol (Verified Allergy, Unknown, Unknown, 09/07/16) Spironolactone (Verified Allergy, Unknown, unknown, 09/07/16) Statins (Verified Allergy, Unknown, unknown, 09/07/16) Sulfa Antibiotics (Verified Allergy, Unknown, ., 09/07/16) Home Medications Scheduled Albuterol Sulf (Proventil 0.083% 2.5MG/3ML), 2.5 MG INH Q6H Alendronate Sodium (Binosto), 70 MG PO WK Amlodipine (Norvasc), 5 MG PO DAILY Atorvastatin (Lipitor), 40 MG PO QPM Benzonatate (Benzonatate), 100 MG PO TID Bepotastine Besilate (Bepreve), 1 DROP OPB BID Budesonide/Formoterol Fumarate (Symbicort 160/4.5 Inhaler ), 2 PUFFS INH BID Bumetanide (Bumetanide), 1.5 MG PO BID Calcium Carbonate-Vitamin D (Oscal 500/200 D-3), 1 TAB PO BID Cholecalciferol (Vitamin D3), 2,000 UNITS PO DAILY Clopidogrel (Plavix), 75 MG PO DAILY Digoxin (Digoxin), 0.125 MG PO QPM Escitalopram Oxalate (Lexapro), 10 MG PO DAILY Gabapentin (Neurontin), 900 MG PO TID Guaifenesin (Guaifenesin), 10 ML PO TID Guaifenesin Ext Rel (Mucinex Ext Rel), 1,200 MG PO Q12 Home O2 Therapy (Oxygen), 3 LITER NA CONTINOUS Insulin Aspart (Novolog Penfill), 4 UNITS SC AC Insulin Aspart (Novolog), 100 SC DIRECTED Insulin Glargine (Lantus), 30 UNITS SC QPM Latanoprost (Xalatan 0.005% Oph Anna), 1 DROPS OPB HS Levothyroxine Sodium (Levothyroxine Sodium), 25 MCG PO Q2D Magnesium Oxide (Mag-Ox), 400 MG PO BID Metoprolol Tartrate (Lopressor) (Lopressor), 25 MG PO BID Multivitamin (Multivitamin), 1 TAB PO DAILY Potassium Chloride (Potassium Chloride Er), 10 MEQ PO DAILY Prednisone (Prednisone), 10 MG PO DIRECTED Ropinirole (Requip), 0.5 MG PO DAILY Saline (Saline Nasal Monson), 2 SPRAYS ADELA BID Sertraline (Zoloft), 50 MG PO HS Tiotropium [place] (Spiriva Handihaler), 1 PUFF PO DAILY Warfarin Sodium (Coumadin), 3 MG PO DAILY [Liquid Protein], 30 ML PO BID Scheduled PRN Acetaminophen Tab (Tylenol), 650 MG PO Q6 PRN for Pain or Fever Bisacodyl (Bisac-Evac), 1 SUPP OK UD PRN for NO BM X4 DAYS Dextrose (Diabetic Use) (Insta-Glucose), 1 APPLN MT UD PRN for HYPOGLYCEMIA PROTOCOL Glucagon (Glucagon Emergency Kit), 1 MG IM UD PRN for HYPOGLYCEMIA Ipratropium-Albuterol (Duoneb), 3 ML INH Q4H PRN for sob/wheeze/cough Magnesium Hydroxide (Milk Of Magnesia), 30 ML PO UD PRN for NO BM X 9 SHIFTS Sodium Phosphate/Biphosphate (Fleet Enema), 1 EA OK UD PRN for NO RESULTS FROM SUPPOSITORY Review of Systems ROS: well nourished well developed No double vision blurry vision No problems with speech or swallowing No palpitations, chest pain or pressure No Wheezing but baseline shortness of breath No abdominal pain nausea vomiting diarrhea changes in appetite or weight No burning urine urine frequency or changes in color, Myers insertion produced by the reviewing in the ER No focal joint pain or muscle pain, edema to her left leg she is a right lower leg" She has changes of chronic venous stasis to her left leg No unusual bruising or bleeding No focused back pain or numbness or loss of strength No changes in memory or confusion she is oriented to person and place but not time this is her baseline Physical Exam Vital Signs Date Time Temp Pulse Resp B/P (MAP) Pulse Ox O2 Delivery O2 Flow Rate FiO2 09/07/16 10:36 93 Nasal Cannula 4.0 09/07/16 10:26 74 16 180/95 93 Nasal Cannula 4.0 09/07/16 09:35 61 16 180/75 95 Nebulizer 09/07/16 08:47 62 09/07/16 08:44 37.4 83 20 158/60 76 Room Air General Appearance: + mild distress (this is chronic), + obese Head: normocephalic, atraumatic Eyes: PERRL, EOMI ENT: hearing grossly normal, pharynx normal Neck: supple, no JVD, trachea midline Respiratory/Chest: chest non-tender, + pertinent finding (decreased breath sounds at the bases with rales that clear) Cardiovascular: regular rate, rhythm, no murmur (heart sounds are distant) Abdomen/GI: normal bowel sounds, non tender, soft Extremities/Musculoskelatal: + pedal edema (both to the left leg), + pertinent finding (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 but she states it's her usual state ) Neurologic/Psych: alert, + depressed affect Diagnostics Laboratory Results Results Past 24 Hours Test 09/07/16 08:45 09/07/16 08:47 09/07/16 08:54 09/07/16 08:56 Range/Units White Blood Count 9.12 4.8-10.8 K/uL Red Blood Count 4.07 4.2-5.4 M/uL Hemoglobin 9.4 12.0-16.0 g/dL Hematocrit 32.6 37-47 % Mean Corpuscular Volume 80.1 80-100 fL Mean Corpuscular Hemoglobin 23.1 25-34 pg Mean Corpuscular Hemoglobin Concent 28.8 32-36 g/dl Platelet Count 271 130-400 K/uL Mean Platelet Volume 10.0 7.4-10.4 fL Neutrophils (%) (Auto) 69.7 % Lymphocytes (%) (Auto) 18.4 % Monocytes (%) (Auto) 8.6 % Eosinophils (%) (Auto) 2.7 % Basophils (%) (Auto) 0.4 % Neutrophils # (Auto) 6.35 1.4-6.5 K/uL Lymphocytes # (Auto) 1.68 1.2-3.4 K/uL Monocytes # (Auto) 0.78 0.11-0.59 K/uL Eosinophils # (Auto) 0.25 0-0.5 K/uL Basophils # (Auto) 0.04 0-0.2 K/uL RDW Standard Deviation 55.1 36.4-46.3 fL RDW Coefficient of Variation 18.7 11.5-14.5 % Immature Granulocyte % (Auto) 0.2 % Immature Granulocyte # (Auto) 0.02 0.00-0.02 K/uL Hypochromasia PRESENT Prothrombin Time 35.4 9.0-12.0 SECONDS Prothromb Time International Ratio 3.2 0.9-1.1 Activated Partial Thromboplast Time 40.7 21.0-31.0 SECONDS Partial Thromboplastin Ratio 1.6 Sodium Level 141 136-145 mmol/L Potassium Level 3.7 3.5-5.1 mmol/L Chloride Level 100 98-107 mmol/L Carbon Dioxide Level 37 21-32 mmol/L Anion Gap 4.0 3-11 mmol/L Blood Urea Nitrogen 26 7-18 mg/dl Creatinine 0.73 0.60-1.20 mg/dl Est Creatinine Clear Calc Drug Dose 61.2 ml/min Estimated GFR () 85.8 Estimated GFR (Non- 74.1 BUN/Creatinine Ratio 34.9 10-20 Random Glucose 95 70-99 mg/dl Calcium Level 9.1 8.5-10.1 mg/dl Total Bilirubin 0.6 0.2-1 mg/dl Direct Bilirubin 0.2 0-0.2 mg/dl Aspartate Amino Transf (AST/SGOT) 34 15-37 U/L Alanine Aminotransferase (ALT/SGPT) 33 12-78 U/L Alkaline Phosphatase 162 45-117 U/L Total Creatine Kinase 85 26-192 U/L Creatine Kinase MB 1.1 0.5-3.6 ng/ml Creatine Kinase MB Ratio 1.3 0-3.0 Total Protein 6.7 6.4-8.2 gm/dl Albumin 2.6 3.4-5.0 gm/dl Lipase 59 73-393 U/L Bedside Lactic Acid Venous 0.90 0.90-1.70 mmol/L Bedside Troponin I < 0.030 0-0.045 ng/ml CU-Avg-L-Type Natriuretic Peptide 2960 0-1800 pg/ml Test 09/07/16 09:28 09/07/16 10:49 Range/Units Venous Blood pH 7.43 7.36-7.41 Venous Blood Partial Pressure CO2 58 38.0-50.0 mmHg Venous Blood Partial Pressure O2 66 mmHg Venous Blood HCO3 37 mmol/L Venous Blood Oxygen Saturation 90.7 % Venous Blood Base Excess 11.6 mmol/L Microbiology Results 09/07/16 Blood Culture, Received Pending 09/07/16 Blood Culture, Received Pending other (chest x-ray compared to May 2016 look surprisingly similar) other (EKG shows A. fib with ventricular paced, there are some lateral ST changes which are similar to May 2016) Impression Assessment and Plan 86-year-old chronically ill female presents with hypoxia, with acute hypoxic respiratory failure as a diagnosis. Chronic hypoxic respiratory failure, it's unclear whether the patient may resume without supplemental oxygen overnight. Her chest x-ray changes are not different than previous. To this end she does complain of some coughing with eating we can have some concern about possible aspiration pneumonia or pneumonitis. We'll obtain a speech consult institute clindamycin IV and treat her for her baseline COPD with Solu-Medrol and nebulized medications. While in the nebulizers we will hold her typical inhaled medications Atrial fibrillation, she is rate controlled maintaining metoprolol digoxin and warfarin pending digoxin level. Hypertension we'll continue her amlodipine and Plavix for cardiovascular protection Chronic diastolic heart failure from severe calcific aortic stenosis with elevated right heart pressures from her COPD (last echo May 2016 preserved EF) , continue Bumex therapy will convert to IV temporarily, clinically she is not in acute heart failure. She remains depressed from her chronic illness and is currently on both Zoloft and Lexapro She seems of some urinary retention and a Myers catheter was placed For diabetes and A1c will be pending for the morning and maintain her Lantus with sliding scale and carb coverage DVT prevention his Coumadin As the patient is at baseline currently if she has no new problems overnight and would be reasonable to return her to the hard side. Level of Care Med/Surg Advanced Directives Existing Living Will: No Existing Power of Electrical Experimental Mechanic: No Resuscitation Status FULL RESUSCITATION VTE Prophylaxis VTE Risk Assessment Done? Y/N: Yes Risk Level: Moderate Given or contraindicated: Warfarin (Coumadin)
[2016-09-07] MEDS: ALBUT/IPRATROP 3MG/0.5MG NEB 3 ML VIAL INH SCH ×3 (12:00→20:00)
[2016-09-07] MEDS ORDERED: DEXTROSE 50% 50 ML SYR IV PRN (12:45)
[2016-09-07] MEDS ORDERED: GLUCOSE 40% GEL 15 GM TUBE PO PRN (12:45)
[2016-09-07] MEDS ORDERED: GLUCAGON FOR INJ 1 MG VIAL SQ PRN (12:45)
[2016-09-07] MEDS ORDERED: GLUCOSE 10 TABS/TUBE PO PRN (12:45)
[2016-09-07] MEDS ORDERED: IV FLUIDS COMPLETED PRN (12:45)
[2016-09-07] MEDS: CLINDAMYCIN IV 600 MG in DEXTROSE 5% 50ML 50 ML IV SCH ×2 (13:33→21:04)
[2016-09-07] MEDS: GABAPENTIN 300 MG CAP PO SCH ×2 (13:40→20:56)
[2016-09-07] MEDS: BENZONATATE 100MG CAP PO SCH ×2 (13:41→20:56)
[2016-09-07] MEDS: INSULIN ASPART 100 UNITS/ML 3 ML PEN SC SCH ×3 (13:44→21:03)
[2016-09-07] MEDS: BUMETANIDE IV SCH (18:35)
[2016-09-07] MEDS: METOPROLOL TARTRATE 25 MG TAB PO SCH (20:00)
[2016-09-07] MEDS: FORMOTEROL FUMA NEBULIZER SOLN 20 MCG/2 ML VIAL INH SCH (20:10)
[2016-09-07] MEDS: SODIUM CHLORIDE 0.65% NA SOLN 45 ML (OCEAN) NAE SCH (20:48)
[2016-09-07] MEDS: MAGNESIUM OXIDE 400 MG TAB PO SCH (20:55)
[2016-09-07] MEDS: METHYLPREDNISOLONE IV 40 MG in SYRINGE 0 ML IV SCH (20:56)
[2016-09-07] MEDS: LATANOPROST 0.005% OP SOLN 2.5 ML BTL OPB SCH (20:57)
[2016-09-07] MEDS: DIGOXIN 0.125 MG TAB PO SCH (20:57)
[2016-09-07] MEDS: ATORVASTATIN 40 MG TAB PO SCH (20:57)
[2016-09-07] MEDS: SERTRALINE HCL 50 MG TAB PO SCH (20:58)
[2016-09-07] MEDS: GUAIFENESIN 600 MG TABCR PO SCH (20:58)
[2016-09-07] MEDS: INSULIN GLARGINE SOLOSTAR 100 UNITS/ML 3 ML PEN SC SCH (21:04)
[2016-09-08] VITALS (8 sets, daily range): BP systolic 107–141; BP diastolic 57–68; PULSE 60–90; TEMP 36.3–36.7; O2SAT 93–98
[2016-09-08] MEDS: CLINDAMYCIN IV 600 MG in DEXTROSE 5% 50ML 50 ML IV SCH ×3 (05:04→20:38)
[2016-09-08] MEDS: LEVOTHYROXINE 25 MCG TAB PO SCH (06:10)
[2016-09-08 06:14] LABS: HEMATOCRIT 32.2 % (37-47); MEAN CELL VOLUME 80.3 fL (80-100); MEAN CORPUSCULAR HEMOGLOBIN 24.2 pg (25-34); MEAN CORPUSCULAR HGB CONC 30.1 g/dl (32-36); MEAN PLATELET VOLUME 10.6 fL (7.4-10.4); PLATELET COUNT 238 K/uL (130-400); RED BLOOD COUNT 4.01 M/uL (4.2-5.4); WHITE BLOOD COUNT 5.43 K/uL (4.8-10.8)
[2016-09-08 06:44] LABS: BUN/CREATININE RATIO 34.5 (10-20); CALCIUM 8.8 mg/dl (8.5-10.1); CREATININE 0.92 mg/dl (0.60-1.20); MAGNESIUM 2.5 mg/dl (1.8-2.4); POTASSIUM 4.3 mmol/L (3.5-5.1)
[2016-09-08 07:01] LABS: INR 2.7 (0.9-1.1); PROTHROMBIN TIME (PATIENT) 29.8 SECONDS (9.0-12.0)
[2016-09-08] MEDS: FORMOTEROL FUMA NEBULIZER SOLN 20 MCG/2 ML VIAL INH SCH ×2 (07:10→19:37)
[2016-09-08] MEDS: ALBUT/IPRATROP 3MG/0.5MG NEB 3 ML VIAL INH SCH ×4 (07:11→19:37)
[2016-09-08] MEDS ORDERED: ESCITALOPRAM OXALATE 10 MG TAB PO SCH (08:00)
[2016-09-08] MEDS: MAGNESIUM OXIDE 400 MG TAB PO SCH ×2 (08:00→20:38)
[2016-09-08] MEDS: BUMETANIDE IV SCH ×2 (08:22→18:07)
[2016-09-08] MEDS: METHYLPREDNISOLONE IV 40 MG in SYRINGE 0 ML IV SCH ×2 (08:22→20:42)
[2016-09-08] MEDS: POTASSIUM CHLORIDE 10 MEQ TABCR PO SCH (08:26)
[2016-09-08] MEDS: SODIUM CHLORIDE 0.65% NA SOLN 45 ML (OCEAN) NAE SCH ×2 (08:26→20:37)
[2016-09-08] MEDS: GABAPENTIN 300 MG CAP PO SCH ×3 (08:27→20:40)
[2016-09-08] MEDS: ROPINIROLE HCL 0.25 MG TAB PO SCH (08:27)
[2016-09-08] MEDS: METOPROLOL TARTRATE 25 MG TAB PO SCH ×2 (08:27→20:50)
[2016-09-08] MEDS: MULTIVITAMIN TAB PO SCH (08:28)
[2016-09-08] MEDS: AMLODIPINE BESYLATE 5 MG TAB PO SCH (08:28)
[2016-09-08] MEDS: CLOPIDOGREL BISULFATE 75 MG TAB PO SCH (08:28)
[2016-09-08] MEDS: GUAIFENESIN 600 MG TABCR PO SCH ×2 (08:29→20:40)
[2016-09-08] MEDS: BENZONATATE 100MG CAP PO SCH ×3 (08:29→20:37)
[2016-09-08] MEDS: INSULIN ASPART 100 UNITS/ML 3 ML PEN SC SCH ×4 (08:32→20:56)
[2016-09-08] MEDS: ONDANSETRON INJ 2 MG/ML 2 ML VIAL IV PRN (09:48)
[2016-09-08] MEDS ORDERED: ALUMINUM/MAGNESIUM SUSP 30 ML UDC ONE (09:55)
[2016-09-08] MEDS ORDERED: NURSING VERBAL MED ORDER ONE (10:00)
[2016-09-08] MEDS ORDERED: RANITIDINE HCL 150 MG TAB PO ONE (10:00)
--- NOTE | 2016-09-08 20:27 | Hospitalist Progress Note ---
Hospitalist Progress Note Date of Service Sep 08, 2016. Subjective Pt evaluation today including: conversation w/ patient, chart review, lab review Patient with no complaints Objective Vital Signs Date Time Temp Pulse Resp B/P (MAP) Pulse Ox O2 Delivery O2 Flow Rate FiO2 09/08/16 19:05 76 16 95 Nasal Cannula 3.0 09/08/16 15:45 Nasal Cannula 3.0 09/08/16 15:09 85 16 95 Nasal Cannula 3.0 09/08/16 14:59 36.3 69 18 107/66 (80) 96 Nasal Cannula 3.0 09/08/16 11:07 61 16 94 Nasal Cannula 3.0 09/08/16 09:45 36.7 84 20 141/68 (92) 93 Nasal Cannula 3.0 09/08/16 08:30 Nasal Cannula 3.0 09/08/16 07:17 36.7 60 20 113/57 (75) 98 Nasal Cannula 3.0 09/08/16 07:11 90 16 98 Nasal Cannula 3.0 09/08/16 00:00 Nasal Cannula 3.0 09/07/16 23:32 36.6 65 18 105/67 (80) 95 Nasal Cannula 3.0 09/07/16 20:58 94/68 (77) 09/07/16 20:57 88 Physical Exam General Appearance: WD/WN Eyes: normal inspection ENT: hearing grossly normal Neck: supple Respiratory/Chest: lungs clear Cardiovascular: regular rate, rhythm Abdomen: normal bowel sounds Extremities: normal inspection Laboratory Results Last 24 Hours Test 09/08/16 05:48 09/08/16 07:41 09/08/16 09:46 09/08/16 11:18 White Blood Count 5.43 K/uL Red Blood Count 4.01 M/uL Hemoglobin 9.7 g/dL Hematocrit 32.2 % Mean Corpuscular Volume 80.3 fL Mean Corpuscular Hemoglobin 24.2 pg Mean Corpuscular Hemoglobin Concent 30.1 g/dl RDW Standard Deviation 55.4 fL RDW Coefficient of Variation 18.8 % Platelet Count 238 K/uL Mean Platelet Volume 10.6 fL Prothrombin Time 29.8 SECONDS Prothromb Time International Ratio 2.7 Sodium Level 141 mmol/L Potassium Level 4.3 mmol/L Chloride Level 101 mmol/L Carbon Dioxide Level 34 mmol/L Anion Gap 6.0 mmol/L Blood Urea Nitrogen 32 mg/dl Creatinine 0.92 mg/dl Est Creatinine Clear Calc Drug Dose 48.6 ml/min Estimated GFR () 64.9 Estimated GFR (Non- 56.0 BUN/Creatinine Ratio 34.5 Random Glucose 206 mg/dl Calcium Level 8.8 mg/dl Magnesium Level 2.5 mg/dl Bedside Glucose 206 mg/dl 265 mg/dl 221 mg/dl Test 09/08/16 17:34 09/08/16 20:18 Bedside Glucose 247 mg/dl 297 mg/dl Assessment and Plan 86-year-old chronically ill female presents with hypoxia, with acute hypoxic respiratory failure as a diagnosis. Chronic hypoxic respiratory failure, it's unclear whether the patient may resume without supplemental oxygen overnight. Her chest x-ray changes are not different than previous. To this end she does complain of some coughing with eating we can have some concern about possible aspiration pneumonia or pneumonitis. We'll obtain a speech consult institute clindamycin IV and treat her for her baseline COPD with Solu-Medrol and nebulized medications. While in the nebulizers we will hold her typical inhaled medications Atrial fibrillation, she is rate controlled maintaining metoprolol digoxin and warfarin pending digoxin level. Hypertension we'll continue her amlodipine and Plavix for cardiovascular protection Chronic diastolic heart failure from severe calcific aortic stenosis with elevated right heart pressures from her COPD (last echo May 2016 preserved EF) , continue Bumex therapy will convert to IV temporarily, clinically she is not in acute heart failure. She remains depressed from her chronic illness and is currently on both Zoloft and Lexapro She seems of some urinary retention and a Myers catheter was placed For diabetes and A1c will be pending for the morning and maintain her Lantus with sliding scale and carb coverage DVT prevention his Coumadin
[2016-09-08] MEDS: SERTRALINE HCL 50 MG TAB PO SCH (20:40)
[2016-09-08] MEDS: LATANOPROST 0.005% OP SOLN 2.5 ML BTL OPB SCH (20:48)
[2016-09-08] MEDS: DIGOXIN 0.125 MG TAB PO SCH (20:49)
[2016-09-08] MEDS: ATORVASTATIN 40 MG TAB PO SCH (20:49)
[2016-09-08] MEDS: INSULIN GLARGINE SOLOSTAR 100 UNITS/ML 3 ML PEN SC SCH (20:56)
[2016-09-09] VITALS (9 sets, daily range): BP systolic 126–138; BP diastolic 56–75; PULSE 63–99; TEMP 36.4–36.6; O2SAT 93–99
[2016-09-09] MEDS: CLINDAMYCIN IV 600 MG in DEXTROSE 5% 50ML 50 ML IV SCH ×4 (05:49→20:49)
[2016-09-09 07:18] LABS: INR 2.8 (0.9-1.1); PROTHROMBIN TIME (PATIENT) 30.9 SECONDS (9.0-12.0)
[2016-09-09] MEDS: ALBUT/IPRATROP 3MG/0.5MG NEB 3 ML VIAL INH SCH ×4 (07:33→18:53)
[2016-09-09] MEDS: FORMOTEROL FUMA NEBULIZER SOLN 20 MCG/2 ML VIAL INH SCH ×2 (07:33→18:53)
[2016-09-09] MEDS: BUMETANIDE IV SCH ×2 (08:38→17:23)
[2016-09-09] MEDS: CLOPIDOGREL BISULFATE 75 MG TAB PO SCH (08:38)
[2016-09-09] MEDS: METHYLPREDNISOLONE IV 40 MG in SYRINGE 0 ML IV SCH ×2 (08:38→21:00)
[2016-09-09] MEDS: ROPINIROLE HCL 0.25 MG TAB PO SCH (08:39)
[2016-09-09] MEDS: MAGNESIUM OXIDE 400 MG TAB PO SCH ×2 (08:39→20:57)
[2016-09-09] MEDS: MULTIVITAMIN TAB PO SCH (08:39)
[2016-09-09] MEDS: SODIUM CHLORIDE 0.65% NA SOLN 45 ML (OCEAN) NAE SCH ×2 (08:39→20:50)
[2016-09-09] MEDS: AMLODIPINE BESYLATE 5 MG TAB PO SCH (08:39)
[2016-09-09] MEDS: POTASSIUM CHLORIDE 10 MEQ TABCR PO SCH (08:39)
[2016-09-09] MEDS: GABAPENTIN 300 MG CAP PO SCH ×3 (08:40→20:58)
[2016-09-09] MEDS: GUAIFENESIN 600 MG TABCR PO SCH ×2 (08:40→21:02)
[2016-09-09] MEDS: METOPROLOL TARTRATE 25 MG TAB PO SCH ×2 (08:40→20:59)
[2016-09-09] MEDS: BENZONATATE 100MG CAP PO SCH ×3 (08:40→21:00)
[2016-09-09] MEDS: INSULIN ASPART 100 UNITS/ML 3 ML PEN SC SCH ×4 (08:43→21:08)
[2016-09-09] MEDS: ONDANSETRON INJ 2 MG/ML 2 ML VIAL IV PRN (08:51)
[2016-09-09 17:52] LABS: BUN/CREATININE RATIO 39.7 (10-20); CALCIUM 8.6 mg/dl (8.5-10.1); CREATININE 0.75 mg/dl (0.60-1.20); POTASSIUM 4.1 mmol/L (3.5-5.1)
--- NOTE | 2016-09-09 20:51 | Hospitalist Progress Note ---
Hospitalist Progress Note Date of Service Sep 09, 2016. Subjective Patient feels better decreased shortness of breath All Other Systems: Reviewed and Negative Objective Vital Signs Date Time Temp Pulse Resp B/P (MAP) Pulse Ox O2 Delivery O2 Flow Rate FiO2 09/09/16 18:53 75 18 95 Nasal Cannula 2.0 09/09/16 16:00 93 Nasal Cannula 2.0 09/09/16 15:19 36.4 65 16 130/56 (80) 99 Nasal Cannula 7.0 09/09/16 15:05 75 16 95 Nasal Cannula 2.0 09/09/16 11:22 75 16 95 Nasal Cannula 2.0 09/09/16 08:00 Nasal Cannula 3.0 09/09/16 07:34 65 16 97 Nasal Cannula 4.0 09/09/16 07:21 36.5 63 20 138/67 (90) 96 Nasal Cannula 4.0 09/09/16 00:00 Nasal Cannula 3.0 09/08/16 23:10 36.5 90 14 116/66 (83) 98 Nasal Cannula 4.0 Physical Exam General Appearance: no apparent distress Eyes: normal inspection ENT: hearing grossly normal Neck: trachea midline Respiratory/Chest: lungs clear Cardiovascular: regular rate, rhythm Abdomen: normal bowel sounds Extremities: non-tender Neurologic/Psychiatric: alert Laboratory Results Last 24 Hours Test 09/09/16 06:36 09/09/16 07:56 09/09/16 11:15 09/09/16 16:19 Prothrombin Time 30.9 SECONDS Prothromb Time International Ratio 2.8 Bedside Glucose 169 mg/dl 227 mg/dl 251 mg/dl Test 09/09/16 17:18 Sodium Level 141 mmol/L Potassium Level 4.1 mmol/L Chloride Level 102 mmol/L Carbon Dioxide Level 37 mmol/L Anion Gap 2.0 mmol/L Blood Urea Nitrogen 30 mg/dl Creatinine 0.75 mg/dl Est Creatinine Clear Calc Drug Dose 59.6 ml/min Estimated GFR () 83.1 Estimated GFR (Non- 71.7 BUN/Creatinine Ratio 39.7 Random Glucose 241 mg/dl Calcium Level 8.6 mg/dl Assessment and Plan 86-year-old chronically ill female presents with hypoxia, with acute hypoxic respiratory failure as a diagnosis. 1. Chronic hypoxic respiratory failure, it's unclear whether the patient may resume without supplemental oxygen overnight. Her chest x-ray changes are not different than previous. 2. Atrial fibrillation, she is rate controlled maintaining metoprolol digoxin and warfarin pending digoxin level. 3. Hypertension we'll continue her amlodipine and Plavix for cardiovascular protection 4. 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 5. She remains depressed from her chronic illness and is currently on both Zoloft and Lexapro 6. She seems of some urinary retention and a Myers catheter was placed 7. Diabetes 8. DVT prevention his Coumadin
[2016-09-09] MEDS: LATANOPROST 0.005% OP SOLN 2.5 ML BTL OPB SCH (21:01)
[2016-09-09] MEDS: ATORVASTATIN 40 MG TAB PO SCH (21:01)
[2016-09-09] MEDS: SERTRALINE HCL 50 MG TAB PO SCH (21:02)
[2016-09-09] MEDS: DIGOXIN 0.125 MG TAB PO SCH (21:03)
[2016-09-09] MEDS: INSULIN GLARGINE SOLOSTAR 100 UNITS/ML 3 ML PEN SC SCH (21:07)
[2016-09-09 21:43] LABS: BUN/CREATININE RATIO 34.8 (10-20); CALCIUM 8.5 mg/dl (8.5-10.1); CREATININE 0.84 mg/dl (0.60-1.20); POTASSIUM 4.2 mmol/L (3.5-5.1)
[2016-09-09 21:55] LABS: BETA-HYDROXYBUTYRATE 0.92 mg/dL (0.2-2.81)
[2016-09-10] MEDS: CLINDAMYCIN IV 600 MG in DEXTROSE 5% 50ML 50 ML IV SCH ×3 (05:06→20:45)
[2016-09-10] MEDS: LEVOTHYROXINE 25 MCG TAB PO SCH (05:07)
[2016-09-10 05:52] LABS: HEMATOCRIT 32.9 % (37-47); MEAN CELL VOLUME 80.8 fL (80-100); MEAN CORPUSCULAR HEMOGLOBIN 23.8 pg (25-34); MEAN CORPUSCULAR HGB CONC 29.5 g/dl (32-36); MEAN PLATELET VOLUME 9.8 fL (7.4-10.4); PLATELET COUNT 232 K/uL (130-400); RED BLOOD COUNT 4.07 M/uL (4.2-5.4); WHITE BLOOD COUNT 7.87 K/uL (4.8-10.8)
[2016-09-10 06:02] LABS: INR 1.9 (0.9-1.1); PROTHROMBIN TIME (PATIENT) 21.4 SECONDS (9.0-12.0)
[2016-09-10 06:33] LABS: BUN/CREATININE RATIO 41.9 (10-20); CALCIUM 8.6 mg/dl (8.5-10.1); CREATININE 0.6 mg/dl (0.60-1.20); MAGNESIUM 2.4 mg/dl (1.8-2.4); POTASSIUM 4.1 mmol/L (3.5-5.1)
[2016-09-10 07:01] VITALS: PULSE 75; O2SAT 100
[2016-09-10] MEDS: ALBUT/IPRATROP 3MG/0.5MG NEB 3 ML VIAL INH SCH ×4 (07:01→19:02)
[2016-09-10] MEDS: FORMOTEROL FUMA NEBULIZER SOLN 20 MCG/2 ML VIAL INH SCH ×2 (07:01→19:03)
[2016-09-10 07:17] VITALS: BP 123/59; PULSE 65; TEMP 36.5; O2SAT 97
[2016-09-10] MEDS: SODIUM CHLORIDE 0.65% NA SOLN 45 ML (OCEAN) NAE SCH ×2 (08:51→20:40)
[2016-09-10] MEDS: METHYLPREDNISOLONE IV 40 MG in SYRINGE 0 ML IV SCH ×2 (08:52→20:40)
[2016-09-10] MEDS: BUMETANIDE IV SCH ×2 (08:52→17:03)
[2016-09-10] MEDS: MULTIVITAMIN TAB PO SCH (08:53)
[2016-09-10] MEDS: CLOPIDOGREL BISULFATE 75 MG TAB PO SCH (08:53)
[2016-09-10] MEDS: AMLODIPINE BESYLATE 5 MG TAB PO SCH (08:53)
[2016-09-10] MEDS: GABAPENTIN 300 MG CAP PO SCH ×3 (08:54→20:41)
[2016-09-10] MEDS: BENZONATATE 100MG CAP PO SCH ×3 (08:54→20:42)
[2016-09-10] MEDS: POTASSIUM CHLORIDE 10 MEQ TABCR PO SCH (08:55)
[2016-09-10] MEDS: GUAIFENESIN 600 MG TABCR PO SCH ×2 (08:55→20:42)
[2016-09-10] MEDS: MAGNESIUM OXIDE 400 MG TAB PO SCH ×2 (08:56→20:40)
[2016-09-10] MEDS: METOPROLOL TARTRATE 25 MG TAB PO SCH ×2 (08:56→20:42)
[2016-09-10] MEDS: ROPINIROLE HCL 0.25 MG TAB PO SCH (08:57)
[2016-09-10] MEDS: INSULIN ASPART 100 UNITS/ML 3 ML PEN SC SCH ×4 (09:02→20:53)
[2016-09-10 09:37] VITALS: O2SAT 96
[2016-09-10 15:30] VITALS: BP 136/75; PULSE 73; TEMP 36.6; O2SAT 98
[2016-09-10] MEDS: WARFARIN SOD 3 MG TAB PO SCH (17:02)
--- NOTE | 2016-09-10 17:39 | Hospitalist Progress Note ---
Hospitalist Progress Note Date of Service Sep 10, 2016. Subjective Pt evaluation today including: conversation w/ patient, chart review Patient with no complaints All Other Systems: Reviewed and Negative Objective Vital Signs Date Time Temp Pulse Resp B/P (MAP) Pulse Ox O2 Delivery O2 Flow Rate FiO2 09/10/16 16:22 Nasal Cannula 2.0 09/10/16 15:30 36.6 73 12 136/75 (95) 98 Nasal Cannula 2.0 09/10/16 09:37 96 Nasal Cannula 2.0 Humidified Oxygen 09/10/16 07:17 36.5 65 18 123/59 (80) 97 Nasal Cannula 2.0 09/10/16 07:01 75 18 100 Nasal Cannula 2.0 09/10/16 01:18 Nasal Cannula 2.0 09/09/16 23:15 36.6 67 22 126/69 (88) 97 Nasal Cannula 2.0 09/09/16 21:03 98 09/09/16 20:51 99 131/75 (93) 97 Nasal Cannula 2.0 09/09/16 20:00 Nasal Cannula 2.0 09/09/16 18:53 75 18 95 Nasal Cannula 2.0 Physical Exam General Appearance: no apparent distress Eyes: normal inspection ENT: hearing grossly normal Neck: trachea midline Respiratory/Chest: lungs clear Cardiovascular: regular rate, rhythm Abdomen: non tender, soft Extremities: normal inspection Neurologic/Psychiatric: alert Laboratory Results Last 24 Hours Test 09/09/16 20:44 09/09/16 21:15 09/10/16 05:39 09/10/16 07:55 Bedside Glucose 309 mg/dl 241 mg/dl Sodium Level 141 mmol/L 142 mmol/L Potassium Level 4.2 mmol/L 4.1 mmol/L Chloride Level 101 mmol/L 104 mmol/L Carbon Dioxide Level 36 mmol/L 37 mmol/L Anion Gap 4.0 mmol/L 1.0 mmol/L Blood Urea Nitrogen 29 mg/dl 25 mg/dl Creatinine 0.84 mg/dl 0.60 mg/dl Est Creatinine Clear Calc Drug Dose 53.2 ml/min 74.5 ml/min Estimated GFR () 72.4 95.0 Estimated GFR (Non- 62.5 82.0 BUN/Creatinine Ratio 34.8 41.9 Random Glucose 307 mg/dl 257 mg/dl Calcium Level 8.5 mg/dl 8.6 mg/dl Pro-B-Type Natriuretic Peptide 1966 pg/ml Beta-Hydroxybutyric Acid 0.92 mg/dL White Blood Count 7.87 K/uL Red Blood Count 4.07 M/uL Hemoglobin 9.7 g/dL Hematocrit 32.9 % Mean Corpuscular Volume 80.8 fL Mean Corpuscular Hemoglobin 23.8 pg Mean Corpuscular Hemoglobin Concent 29.5 g/dl RDW Standard Deviation 57.4 fL RDW Coefficient of Variation 19.0 % Platelet Count 232 K/uL Mean Platelet Volume 9.8 fL Prothrombin Time 21.4 SECONDS Prothromb Time International Ratio 1.9 Magnesium Level 2.4 mg/dl Test 09/10/16 11:47 09/10/16 17:10 Bedside Glucose 251 mg/dl 298 mg/dl Assessment and Plan 86-year-old chronically ill female presents with hypoxia, with acute hypoxic respiratory failure as a diagnosis. 1. Chronic hypoxic respiratory failure. Continue Bumex therapy 2. Atrial fibrillation, she is rate controlled maintaining metoprolol digoxin and warfarin pending digoxin level. 3. Hypertension we'll continue her amlodipine and Plavix for cardiovascular protection 4. 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 5. She remains depressed from her chronic illness and is currently on both Zoloft and Lexapro 6. She seems of some urinary retention and a Myers catheter was placed 7. Diabetes 8. DVT prevention her Coumadin will be restarted
[2016-09-10 19:03] VITALS: PULSE 70; O2SAT 99
[2016-09-10] MEDS: DIGOXIN 0.125 MG TAB PO SCH (20:40)
[2016-09-10] MEDS: SERTRALINE HCL 50 MG TAB PO SCH (20:40)
[2016-09-10] MEDS: ATORVASTATIN 40 MG TAB PO SCH (20:41)
[2016-09-10] MEDS: LATANOPROST 0.005% OP SOLN 2.5 ML BTL OPB SCH (20:43)
[2016-09-10] MEDS: INSULIN GLARGINE SOLOSTAR 100 UNITS/ML 3 ML PEN SC SCH (20:53)
[2016-09-11] VITALS (8 sets, daily range): BP systolic 121–155; BP diastolic 53–77; PULSE 63–98; TEMP 36.4; O2SAT 93–99; BMI 44.6
[2016-09-11] MEDS: CLINDAMYCIN IV 600 MG in DEXTROSE 5% 50ML 50 ML IV SCH ×3 (05:02→21:23)
[2016-09-11 06:55] LABS: HEMATOCRIT 34.7 % (37-47); MEAN CELL VOLUME 79.4 fL (80-100); MEAN CORPUSCULAR HEMOGLOBIN 23.3 pg (25-34); MEAN CORPUSCULAR HGB CONC 29.4 g/dl (32-36); MEAN PLATELET VOLUME 10.1 fL (7.4-10.4); PLATELET COUNT 258 K/uL (130-400); RED BLOOD COUNT 4.37 M/uL (4.2-5.4); WHITE BLOOD COUNT 8.58 K/uL (4.8-10.8)
[2016-09-11 07:05] LABS: INR 1.6 (0.9-1.1)
[2016-09-11] MEDS: ALBUT/IPRATROP 3MG/0.5MG NEB 3 ML VIAL INH SCH ×4 (07:13→19:06)
[2016-09-11] MEDS: FORMOTEROL FUMA NEBULIZER SOLN 20 MCG/2 ML VIAL INH SCH ×2 (07:16→19:06)
[2016-09-11 07:26] LABS: BUN/CREATININE RATIO 40.3 (10-20); CALCIUM 8.7 mg/dl (8.5-10.1); CREATININE 0.55 mg/dl (0.60-1.20); POTASSIUM 3.9 mmol/L (3.5-5.1)
[2016-09-11] MEDS: GABAPENTIN 300 MG CAP PO SCH ×3 (07:31→21:24)
[2016-09-11] MEDS: METOPROLOL TARTRATE 25 MG TAB PO SCH ×2 (07:31→21:24)
[2016-09-11] MEDS: BENZONATATE 100MG CAP PO SCH ×3 (07:31→21:28)
[2016-09-11] MEDS: GUAIFENESIN 600 MG TABCR PO SCH ×2 (07:31→21:27)
[2016-09-11] MEDS: CLOPIDOGREL BISULFATE 75 MG TAB PO SCH (07:32)
[2016-09-11] MEDS: POTASSIUM CHLORIDE 10 MEQ TABCR PO SCH (07:32)
[2016-09-11] MEDS: MULTIVITAMIN TAB PO SCH (07:32)
[2016-09-11] MEDS: AMLODIPINE BESYLATE 5 MG TAB PO SCH (07:32)
[2016-09-11] MEDS: MAGNESIUM OXIDE 400 MG TAB PO SCH ×2 (07:32→21:22)
[2016-09-11] MEDS: ROPINIROLE HCL 0.25 MG TAB PO SCH (07:32)
[2016-09-11] MEDS: SODIUM CHLORIDE 0.65% NA SOLN 45 ML (OCEAN) NAE SCH ×2 (07:33→21:21)
[2016-09-11] MEDS: BUMETANIDE IV SCH ×2 (08:49→18:32)
[2016-09-11] MEDS: METHYLPREDNISOLONE IV 40 MG in SYRINGE 0 ML IV SCH ×2 (08:49→21:22)
[2016-09-11] MEDS: INSULIN ASPART 100 UNITS/ML 3 ML PEN SC SCH ×4 (08:51→21:33)
--- NOTE | 2016-09-11 10:39 | Clinical Documentation Query ---
CLINICAL DOCUMENTATION QUERY 86-y/o female who presents with acute on chronic respiratory failure of unknown cause. She presented hypoxic with CXR evidence of congestive failure. ProBNAP was elevated and patient's Bumex therapy switched to IV for 5 days of as of now. In your clinical opinion is this patient being managed for: ( ) Acute on chronic diastolic CHF treated with IV Bumex, I/O's, Myers, and daily weights. ( ) Other explanation of clinical findings (Please Explain) ( ) Unable to determine (Please Define) ( ) Need to Discuss ( ) Not Agree The medical record reflects the following clinical findings, treatment, and risk factors. Clinical Indicators: 76% on RA, ProBAP 1966, CXR showing evidence of congestive failure. Failed PO Bumex treatment. Treatment: PO Bumex converted to IV x5 day, I/O's, Myers, daily weights, Risk Factors: Age, hx of CHF, CKD, HTN, and Cardiomegally. Please clarify and document your clinical opinion in the progress notes and discharge summary. Terms such as "probable", "suspected", "likely", "questionable", "possible", or "still to be ruled out" are acceptable. IF IN AGREEMENT, YOU MUST DOCUMENT ABOVE DIAGNOSTIC STATEMENT IN DAILY PROGRESS NOTES AND DISCHARGE SUMMARY. This document is not part of the patient's record. Thank You, Richard Mayberry, RN [phone]
[2016-09-11] MEDS ORDERED: PHARMACY GLYCEMIC MGMT CONSULT SCH (13:30)
--- NOTE | 2016-09-11 14:42 | Pharmacy Progress Note ---
Glycemic Control Intl Consult Date of Service Sep 11, 2016. Scope Glycemic Pharmacist consulted by Dr Quinonez on 09/11/16 for glycemic control and to write orders per [facility] inpatient glycemic control protocol Objective Weight (Kilograms): 107.000 Accuchecks BSG (last 24hrs): Test 09/10/16 17:10 09/10/16 20:26 09/10/16 22:12 09/11/16 06:40 Bedside Glucose 298 mg/dl (70-90) 495 mg/dl (70-90) 298 mg/dl (70-90) Random Glucose 215 mg/dl (70-99) Test 09/11/16 07:31 09/11/16 11:20 Bedside Glucose 205 mg/dl (70-90) 286 mg/dl (70-90) Laboratory Data (last 24hrs) Test 09/11/16 06:40 Anion Gap 2.0 mmol/L BUN/Creatinine Ratio 40.3 Blood Urea Nitrogen 22 mg/dl Creatinine 0.55 mg/dl Potassium Level 3.9 mmol/L Sodium Level 142 mmol/L White Blood Count 8.58 K/uL Recent Pertinent Medications Outpatient Anti-diabetic Regimen: * Lantus 30 units SQ QHS * Novolog 4 units AC, plus sliding scale * A1c = 7.7 % 08/16/16 The patient is currently receiving: * Basal insulin: Lantus 30 units SQ QHS * Correctional Insulin: Novolog Correction per scale ACHS Goal Range: Low 80 mg/dL - High 150 mg/dL Correction Factor: 25 mg/dL/unit * Prandial insulin: Per carb ratio of 1 unit per 15 grams CHO consumed Risk Factors for Insulin Resistance: * Steroids: SoluMedrol 40mg IV q12h * Infection: IV Clindamycin (pulm infx) * IVF: Bumex IV * Diet: Type 2 diabetic, Low Na diet Assessment & Plan ASSESSMENT: * Ms Powell is an 86yo diabetic female, well-known to the pharmacy glycemic management service from past admissions. * She is admitted with respiratory failure and is currently receiving IV steroids, which is likely contributing to her sustained hyperglycemia. * Patient was severely hyperglycemic last evening (BSG 495mg/dL). * At this point, will give a supplemental dose of Lantus and tighten correctional parameters to provide additional insulin. Will also add an overnight accu-check to provide more continuous coverage until hyperglycemia begins to resolve. * ADA & AACE recommend a goal blood sugar range 140-180 mg/dl for the majority of critically ill & non-critically ill patients. However, more stringent targets may be selected in individual cases. * Will utilize more stringent goal of 110-150mg/dl based on patient age & comorbidities. Additionally, tighter glycemic control is warranted to facilitate infection healing. PLAN FOR INPATIENT GLYCEMIC CONTROL: * Basal insulin with LANTUS 30 units SQ QHS * This is patient's home dose and she usually requires lower doses as an inpatient. Expect that her insulin needs are greater while receiving high-dose steroids, but hesitate to increase Lantus dose too aggressively, based on past data. * For now, give additional Lantus 10 units SQ x1 dose now * Will re-eval in the morning * Correctional Insulin with NOVOLOG per scale ACHS, plus 0200 for additional coverage overnight * Changes as follows (based on past admission data): * Goal Range: Low 110 mg/dL - High 150 mg/dL * Correction Factor: 20 mg/dL/unit * Nutritional / Prandial insulin per carb ratio of 1 unit per 8 grams CHO consumed * Please note that the plan above was derived based on current level of insulin resistance and hospital stress. These recommendations are appropriate for inpatient admission only. Plan of care upon discharge will need to be reassessed to avoid potential outpatient hypo/hyperglycemia. Thank you.
[2016-09-11] MEDS ORDERED: INSULIN GLARGINE SOLOSTAR 100 UNITS/ML 3 ML PEN SC ONE (14:45)
[2016-09-11] MEDS: WARFARIN SOD 3 MG TAB PO SCH (15:55)
[2016-09-11] MEDS ORDERED: INSULIN HUMAN REGULAR PER UNIT 5 UNITS in SYRINGE 4.95 ML IV SCH (20:45)
[2016-09-11] MEDS: LATANOPROST 0.005% OP SOLN 2.5 ML BTL OPB SCH (21:22)
[2016-09-11] MEDS: SERTRALINE HCL 50 MG TAB PO SCH (21:27)
[2016-09-11] MEDS: DIGOXIN 0.125 MG TAB PO SCH (21:27)
[2016-09-11] MEDS: ATORVASTATIN 40 MG TAB PO SCH (21:28)
[2016-09-11] MEDS: INSULIN GLARGINE SOLOSTAR 100 UNITS/ML 3 ML PEN SC SCH (21:31)
[2016-09-12] VITALS (7 sets, daily range): BP systolic 103–141; BP diastolic 60–72; PULSE 67–84; TEMP 36.4; O2SAT 94–98; Ht 154.9 cm; Wt 107.0 kg
[2016-09-12] MEDS: INSULIN ASPART 100 UNITS/ML 3 ML PEN SC SCH ×6 (00:21→21:59)
[2016-09-12] MEDS ORDERED: INSULIN ASPART 100 UNITS/ML 3 ML PEN SC ONE (02:00)
--- NOTE | 2016-09-12 04:00 | Hospitalist Progress Note ---
Hospitalist Progress Note Date of Service Sep 11, 2016. Subjective Pt evaluation today including: conversation w/ patient Patient feeling better no shortness of breath All Other Systems: Reviewed and Negative Medications Last Resulted CBC 09/11/16 06:40 Last Resulted BMP 09/11/16 06:40 Objective Vital Signs Date Time Temp Pulse Resp B/P (MAP) Pulse Ox O2 Delivery O2 Flow Rate FiO2 09/12/16 00:00 Nasal Cannula 2.0 Humidified Oxygen 09/11/16 23:54 36.4 68 20 121/53 (75) 95 Nasal Cannula 2.0 09/11/16 21:27 93 09/11/16 19:06 98 16 98 Nasal Cannula 2.0 09/11/16 15:30 Nasal Cannula 2.0 Humidified Oxygen 09/11/16 15:26 89 16 96 Nasal Cannula 2.0 09/11/16 14:46 36.4 90 18 143/77 (99) 96 Nasal Cannula 2.0 09/11/16 11:09 81 16 98 Nasal Cannula 2.0 09/11/16 10:00 Nasal Cannula 2.0 09/11/16 07:26 36.4 63 18 155/77 (103) 99 Nasal Cannula 2.0 09/11/16 07:15 70 16 98 Nasal Cannula 2.0 Physical Exam General Appearance: no apparent distress ENT: hearing grossly normal Neck: trachea midline Respiratory/Chest: lungs clear Cardiovascular: regular rate, rhythm Abdomen: non tender Extremities: normal inspection Laboratory Results Last 24 Hours Test 09/11/16 06:40 09/11/16 07:31 09/11/16 11:20 09/11/16 16:38 White Blood Count 8.58 K/uL Red Blood Count 4.37 M/uL Hemoglobin 10.2 g/dL Hematocrit 34.7 % Mean Corpuscular Volume 79.4 fL Mean Corpuscular Hemoglobin 23.3 pg Mean Corpuscular Hemoglobin Concent 29.4 g/dl RDW Standard Deviation 54.4 fL RDW Coefficient of Variation 18.5 % Platelet Count 258 K/uL Mean Platelet Volume 10.1 fL Prothrombin Time 17.0 SECONDS Prothromb Time International Ratio 1.6 Sodium Level 142 mmol/L Potassium Level 3.9 mmol/L Chloride Level 103 mmol/L Carbon Dioxide Level 37 mmol/L Anion Gap 2.0 mmol/L Blood Urea Nitrogen 22 mg/dl Creatinine 0.55 mg/dl Est Creatinine Clear Calc Drug Dose 81.3 ml/min Estimated GFR () 97.7 Estimated GFR (Non- 84.3 BUN/Creatinine Ratio 40.3 Random Glucose 215 mg/dl Calcium Level 8.7 mg/dl Pro-B-Type Natriuretic Peptide 2071 pg/ml Bedside Glucose 205 mg/dl 286 mg/dl 370 mg/dl Test 09/11/16 20:17 09/11/16 20:23 09/11/16 20:29 09/11/16 23:48 Bedside Glucose 501 mg/dl 324 mg/dl 335 mg/dl 193 mg/dl Assessment and Plan 86-year-old chronically ill female presents with hypoxia, with acute hypoxic respiratory failure as a diagnosis. 1. Chronic hypoxic respiratory failure. Continue Bumex therapy Patient clinically improving 2. Atrial fibrillation, she is rate controlled maintaining metoprolol. 3. Hypertension we'll continue her amlodipine and Plavix for cardiovascular protection 4. 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 5. She remains depressed from her chronic illness and is currently on both Zoloft and Lexapro 6. She seems of some urinary retention and a Myers catheter was placed 7. Diabetes 8. DVT prevention her Coumadin will be restarted Discharge planning: [facility] facility
[2016-09-12] MEDS: CLINDAMYCIN IV 600 MG in DEXTROSE 5% 50ML 50 ML IV SCH ×3 (04:57→21:52)
[2016-09-12] MEDS: LEVOTHYROXINE 25 MCG TAB PO SCH (05:44)
[2016-09-12] MEDS: FORMOTEROL FUMA NEBULIZER SOLN 20 MCG/2 ML VIAL INH SCH ×2 (07:01→19:01)
[2016-09-12] MEDS: ALBUT/IPRATROP 3MG/0.5MG NEB 3 ML VIAL INH SCH ×4 (07:05→19:01)
[2016-09-12 07:53] LABS: HEMATOCRIT 38.6 % (37-47); MEAN CELL VOLUME 77.8 fL (80-100); MEAN CORPUSCULAR HEMOGLOBIN 22.6 pg (25-34); MEAN PLATELET VOLUME 9.5 fL (7.4-10.4); PLATELET COUNT 285 K/uL (130-400); RED BLOOD COUNT 4.96 M/uL (4.2-5.4); WHITE BLOOD COUNT 11.41 K/uL (4.8-10.8)
[2016-09-12] MEDS: CLOPIDOGREL BISULFATE 75 MG TAB PO SCH (07:58)
[2016-09-12] MEDS: GUAIFENESIN 600 MG TABCR PO SCH ×2 (07:58→21:46)
[2016-09-12] MEDS: GABAPENTIN 300 MG CAP PO SCH ×3 (07:58→21:44)
[2016-09-12] MEDS: BUMETANIDE IV SCH ×2 (07:59→16:28)
[2016-09-12] MEDS: AMLODIPINE BESYLATE 5 MG TAB PO SCH (07:59)
[2016-09-12] MEDS: POTASSIUM CHLORIDE 10 MEQ TABCR PO SCH (07:59)
[2016-09-12] MEDS: METHYLPREDNISOLONE IV 40 MG in SYRINGE 0 ML IV SCH ×2 (07:59→21:45)
[2016-09-12] MEDS: METOPROLOL TARTRATE 25 MG TAB PO SCH ×2 (07:59→21:53)
[2016-09-12] MEDS: BENZONATATE 100MG CAP PO SCH ×3 (08:00→21:44)
[2016-09-12] MEDS: ROPINIROLE HCL 0.25 MG TAB PO SCH (08:00)
[2016-09-12] MEDS: MAGNESIUM OXIDE 400 MG TAB PO SCH ×2 (08:00→21:43)
[2016-09-12] MEDS: MULTIVITAMIN TAB PO SCH (08:00)
[2016-09-12] MEDS: SODIUM CHLORIDE 0.65% NA SOLN 45 ML (OCEAN) NAE SCH ×2 (08:01→21:40)
[2016-09-12 08:03] LABS: INR 1.5 (0.9-1.1); PROTHROMBIN TIME (PATIENT) 16.8 SECONDS (9.0-12.0)
[2016-09-12 08:28] LABS: BUN/CREATININE RATIO 30.7 (10-20); CALCIUM 9.3 mg/dl (8.5-10.1); CREATININE 0.86 mg/dl (0.60-1.20); MAGNESIUM 2.5 mg/dl (1.8-2.4); POTASSIUM 3.8 mmol/L (3.5-5.1)
--- NOTE | 2016-09-12 15:43 | Pharmacy Progress Note ---
Glycemic: Assessment & Plan Date of Service Sep 12, 2016. Assessment & Plan The patient is currently receiving 98 units of insulin per day. BSGs ranging 115 - 370 mg/dl over the past 24hrs. * Basal insulin: Lantus 10 units sq am + 40 units sq pm (increased from 30 units daily) * Correctional Insulin: Novolog Correction per scale ACHS Goal Range: Low 110 mg/dL - High 150 mg/dL Correction Factor: 18 mg/dL/unit * Prandial insulin: Per carb ratio of 1 unit per 6 grams CHO consumed ASSESSMENT: From 09/09/16: * Ms Powell is an 86yo diabetic female, well-known to the pharmacy glycemic management service from past admissions. * She is admitted with respiratory failure and is currently receiving IV steroids, which is likely contributing to her sustained hyperglycemia 09/12/16: * Fasting BSG improved today after receiving an additional 20 units of Lantus on 09/11 * The patient did receive a one time IV regular insulin bolus of 5 units yesterday for severe hyperglycemia. * Continues to have hyperglycemia throughout the day, warranting tightening of bolus insulin parameters * will follow closely per parameters will need to be loosened once steroids are discontinued * Continues on Solu-medrol 40 mg IV q12 PLAN FOR INPATIENT GLYCEMIC CONTROL: * Continue LANTUS 40 units SQ QHS - dose not at steady state * Correctional Insulin with NOVOLOG per scale ACHS, plus 0200 for additional coverage overnight * Goal Range: Low 110 mg/dL - High 150 mg/dL * Correction Factor: 15 mg/dL/unit * Nutritional / Prandial insulin per carb ratio of 1 unit per 5 grams CHO consumed * Please note that the plan above was derived based on current level of insulin resistance and hospital stress. These recommendations are appropriate for inpatient admission only. Plan of care upon discharge will need to be reassessed to avoid potential outpatient hypo/hyperglycemia.
[2016-09-12] MEDS: WARFARIN SOD 3 MG TAB PO SCH (16:27)
[2016-09-12] MEDS: ATORVASTATIN 40 MG TAB PO SCH (21:46)
[2016-09-12] MEDS: SERTRALINE HCL 50 MG TAB PO SCH (21:46)
[2016-09-12] MEDS: LATANOPROST 0.005% OP SOLN 2.5 ML BTL OPB SCH (21:47)
[2016-09-12] MEDS: DIGOXIN 0.125 MG TAB PO SCH (21:47)
[2016-09-12] MEDS: INSULIN GLARGINE SOLOSTAR 100 UNITS/ML 3 ML PEN SC SCH (22:00)
[2016-09-13 00:10] VITALS: BP 152/80; PULSE 95; TEMP 36.7; O2SAT 99
--- NOTE | 2016-09-13 01:01 | Hospitalist Progress Note ---
Hospitalist Progress Note Date of Service Sep 12, 2016. Subjective Pt evaluation today including: conversation w/ patient Patient with no complaints Objective Vital Signs Date Time Temp Pulse Resp B/P (MAP) Pulse Ox O2 Delivery O2 Flow Rate FiO2 09/13/16 00:10 36.7 95 17 152/80 (104) 99 Nasal Cannula 2.0 09/12/16 21:47 72 09/12/16 21:41 76 105/66 (79) 09/12/16 19:02 84 16 94 Nasal Cannula 2.0 09/12/16 17:25 Nasal Cannula 2.0 Humidified Oxygen 09/12/16 15:27 76 16 98 Nasal Cannula 2.0 09/12/16 14:51 36.4 67 18 103/60 (74) 96 Nasal Cannula 2.0 09/12/16 11:13 72 16 95 Nasal Cannula 2.0 09/12/16 08:10 Nasal Cannula 2.0 09/12/16 07:19 36.4 84 20 141/72 (95) 95 Nasal Cannula 2.0 09/12/16 07:01 74 16 97 Nasal Cannula 2.0 Physical Exam General Appearance: no apparent distress ENT: hearing grossly normal Neck: trachea midline Respiratory/Chest: lungs clear Abdomen: normal bowel sounds Extremities: non-tender Neurologic/Psychiatric: normal mood/affect Laboratory Results Last 24 Hours Test 09/12/16 04:14 09/12/16 07:36 09/12/16 07:37 09/12/16 11:20 Bedside Glucose 115 mg/dl 161 mg/dl 237 mg/dl White Blood Count 11.41 K/uL Red Blood Count 4.96 M/uL Hemoglobin 11.2 g/dL Hematocrit 38.6 % Mean Corpuscular Volume 77.8 fL Mean Corpuscular Hemoglobin 22.6 pg Mean Corpuscular Hemoglobin Concent 29.0 g/dl RDW Standard Deviation 53.3 fL RDW Coefficient of Variation 18.6 % Platelet Count 285 K/uL Mean Platelet Volume 9.5 fL Nucleated RBC Absolute Count (auto) 0.02 K/uL Nucleated Red Blood Cells % 0.1 % Prothrombin Time 16.8 SECONDS Prothromb Time International Ratio 1.5 Sodium Level 142 mmol/L Potassium Level 3.8 mmol/L Chloride Level 101 mmol/L Carbon Dioxide Level 38 mmol/L Anion Gap 3.0 mmol/L Blood Urea Nitrogen 26 mg/dl Creatinine 0.86 mg/dl Est Creatinine Clear Calc Drug Dose 52.0 ml/min Estimated GFR () 70.4 Estimated GFR (Non- 60.7 BUN/Creatinine Ratio 30.7 Random Glucose 139 mg/dl Calcium Level 9.3 mg/dl Magnesium Level 2.5 mg/dl Test 09/12/16 16:28 09/12/16 20:31 Bedside Glucose 242 mg/dl 226 mg/dl Assessment and Plan 86-year-old chronically ill female presents with hypoxia, with acute hypoxic respiratory failure as a diagnosis. 1. Chronic hypoxic respiratory failure. Continue Bumex therapy Patient clinically improving 2. Atrial fibrillation, she is rate controlled maintaining metoprolol. 3. Hypertension we'll continue her amlodipine and Plavix for cardiovascular protection 4. 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 5. She remains depressed from her chronic illness and is currently on both Zoloft and Lexapro 6. She seems of some urinary retention and a Myers catheter was placed 7. Diabetes 8. DVT prevention her Coumadin restarted Discharge planning: uncertain
[2016-09-13] MEDS ORDERED: INSULIN ASPART 100 UNITS/ML 3 ML PEN SC SCH (02:00)
[2016-09-13] MEDS: CLINDAMYCIN IV 600 MG in DEXTROSE 5% 50ML 50 ML IV SCH ×2 (04:33→12:45)
[2016-09-13] MEDS: ALBUT/IPRATROP 3MG/0.5MG NEB 3 ML VIAL INH SCH ×3 (06:59→15:21)
[2016-09-13] MEDS: FORMOTEROL FUMA NEBULIZER SOLN 20 MCG/2 ML VIAL INH SCH (06:59)
[2016-09-13 07:01] VITALS: PULSE 73; O2SAT 97
[2016-09-13 07:41] VITALS: BP 128/70; PULSE 69; TEMP 36.5; O2SAT 97
[2016-09-13] MEDS: SODIUM CHLORIDE 0.65% NA SOLN 45 ML (OCEAN) NAE SCH (07:46)
[2016-09-13] MEDS: BENZONATATE 100MG CAP PO SCH ×2 (07:46→14:09)
[2016-09-13] MEDS: METOPROLOL TARTRATE 25 MG TAB PO SCH (07:46)
[2016-09-13] MEDS: MAGNESIUM OXIDE 400 MG TAB PO SCH (07:46)
[2016-09-13] MEDS: MULTIVITAMIN TAB PO SCH (07:46)
[2016-09-13] MEDS: CLOPIDOGREL BISULFATE 75 MG TAB PO SCH (07:46)
[2016-09-13] MEDS: POTASSIUM CHLORIDE 10 MEQ TABCR PO SCH (07:46)
[2016-09-13] MEDS: AMLODIPINE BESYLATE 5 MG TAB PO SCH (07:46)
[2016-09-13] MEDS: GABAPENTIN 300 MG CAP PO SCH ×2 (07:47→14:09)
[2016-09-13] MEDS: ROPINIROLE HCL 0.25 MG TAB PO SCH (07:47)
[2016-09-13] MEDS: GUAIFENESIN 600 MG TABCR PO SCH (07:47)
[2016-09-13 07:53] VITALS: BP 131/58; PULSE 74; TEMP 36.4; O2SAT 98
[2016-09-13] MEDS: METHYLPREDNISOLONE IV 40 MG in SYRINGE 0 ML IV SCH (08:39)
[2016-09-13] MEDS: BUMETANIDE IV SCH (08:40)
[2016-09-13] MEDS: INSULIN ASPART 100 UNITS/ML 3 ML PEN SC SCH ×2 (08:42→12:20)
[2016-09-13 11:06] VITALS: PULSE 73; O2SAT 96
[2016-09-13] MEDS ORDERED: CMD4 PO (14:54)
[2016-09-13] MEDS ORDERED: INSDGIPEN SC (14:54)
--- NOTE | 2016-09-13 14:58 | Discharge Instructions ---
Discharge Instructions Date of Service Sep 13, 2016. Admission Reason for Admission: Hypoxia Discharge Discharge Diagnosis / Problem: Respiratory failure Discharge Goals Goal(s): Improve function Activity Recommendations Activity Limitations: resume your previous activity . Instructions / Follow-Up Instructions / Follow-Up Primary care physician in 1 week check pt inr on Friday 09/15 Current Hospital Diet Patient's current hospital diet: Diabetes Type 2 Diet, Low Sodium Diet (2gm Na) Discharge Diet Recommended Diet: Low Sodium Diet (2gm Na), Diabetes Type 1 Diet Pending Studies Studies pending at discharge: no Laboratory Results Hemoglobin A1c Test 08/16/16 04:30 Range/Units Estimated Average Glucose 174 mg/dl Hemoglobin A1c 7.7 H 4.5-5.6 % Medical Emergencies . Who to Call and When: Medical Emergencies: If at any time you feel your situation is an emergency, please call 911 immediately. . Non-Emergent Contact Non-Emergency issues call your: Primary Care Provider . . "Provider Documentation" section prepared by Avi Quinonez. . VTE Core Measure Inpt VTE Proph given/why not?: Warfarin (Coumadin)
[2016-09-13 15:01] VITALS: BP 131/58; PULSE 73; TEMP 36.4; O2SAT 96
[2016-09-13] MEDS ORDERED: WARFARIN SOD 4 MG TAB PO SCH (16:00)
[2016-09-13] MEDS ORDERED: INSULIN GLARGINE SOLOSTAR 100 UNITS/ML 3 ML PEN SC SCH (21:00)
--- NOTE | 2016-09-14 00:07 | Discharge Summary ---
Discharge Summary Date of Service Sep 14, 2016. Discharge Summary Admission Date: Sep 10, 2016 at 12:32 Discharge Date: Sep 13, 2016 Discharge Disposition: [facility] facility Principal Diagnosis: hypoxemic respiratory failure Problems/Secondary Diagnoses: Acute on chronic diastolic congestive heart failure Immunizations: Have You Had Influenza Vaccine: No Influenza Vaccine Date: Jun 01, 2011 History of Tetanus Vaccine?: utd History of Pneumococcal: Yes Pneumococcal Date: Sep 02, 2012 History of Hepatitis B Vaccine: No Medication Reconciliation New Medications: Insulin Glargine (Lantus Solostar) 100 Unit/Ml Inj 40 UNITS SC QPM for 30 Days, #1 BTL 0 Refills Warfarin Sod (Coumadin) 4 Mg Tab 4 MG PO DAILY@16 for 30 Days, #30 TAB Continued Medications: Acetaminophen Tab (Tylenol) 325 Mg Tab 650 MG PO Q6 PRN for Pain or Fever, TAB FOR TEMP >101F. NOT TO EXCEED 3GM/24HRS Albuterol Sulf (Proventil 0.083% 2.5MG/3ML) 2.5 Mg/3 Ml Nebu 2.5 MG INH Q6H, #1 BOX 2 Refills Alendronate Sodium (Binosto) 70 Mg Tab 70 MG PO WK EVERY THURSDAY Amlodipine (Norvasc) 5 Mg Tab 5 MG PO DAILY, TAB Atorvastatin (Lipitor) 40 Mg Tab 40 MG PO QPM, TAB Benzonatate (Benzonatate) 100 Mg Cap 100 MG PO TID, #30 CAP 0 Refills Bepotastine Besilate (Bepreve) 1.5 % Christiano 1 DROP OPB BID Bisacodyl (Bisac-Evac) 10 Mg Sup 1 SUPP OH UD PRN for NO BM X4 DAYS Budesonide/Formoterol Fumarate (Symbicort 160/4.5 Inhaler ) Aero 2 PUFFS INH BID, INHALER Bumetanide (Bumetanide) 0.5 Mg Tab 1.5 MG PO BID Calcium Carbonate-Vitamin D (Oscal 500/200 D-3) 1 Tab Tab 1 TAB PO BID Cholecalciferol (Vitamin D3) 2,000 Unit Tab 2000 UNITS PO DAILY for 90 Days, TAB 3 Refills Clopidogrel (Plavix) 75 Mg Tab 75 MG PO DAILY, TAB Dextrose (Diabetic Use) (Insta-Glucose) 77.4 % Gel 1 APPLN MT UD PRN for HYPOGLYCEMIA PROTOCOL Digoxin (Digoxin) 0.125 Mg Tab 0.125 MG PO QPM Gabapentin (Neurontin) 300 Mg Cap 900 MG PO TID, CAP Glucagon (Glucagon Emergency Kit) 1 Mg Kit 1 MG IM UD PRN for HYPOGLYCEMIA Guaifenesin (Guaifenesin) 100 Mg/5 Ml Syp 10 ML PO TID [id number] Guaifenesin Ext Rel (Mucinex Ext Rel) 600 Mg Tabcr 1200 MG PO Q12 for 7 Days, #14 0 Refills Home O2 Therapy (Oxygen) Gas 3 LITER NA CONTINOUS Insulin Aspart (Novolog Penfill) 100 Unit/Ml Inj 4 UNITS SC AC Insulin Aspart (Novolog) 100 Units/Ml Inj 100 SC DIRECTED inject per sliding scale 0-150= 0 units, 151-200 = 6 units, 201-250= 8 units, 251-300 = 10 units, 301-350 =12 units, 351-400 = 14 units, 401-450 = 16 units greater than 451 call Ipratropium-Albuterol (Duoneb) 3 Ml Nebu 3 ML INH Q4H PRN for sob/wheeze/cough, #1 BOX 2 Refills Latanoprost (Xalatan 0.005% Oph Anna) 0.005 % Anna 1 DROPS OPB HS, #2.5 ML 3 Refills Levothyroxine Sodium (Levothyroxine Sodium) 25 Mcg Tab 25 MCG PO Q2D for 30 Days, TAB 5 Refills Magnesium Hydroxide (Milk Of Magnesia) 30 Ml Susp 30 ML PO UD PRN for NO BM X 9 SHIFTS, ML Magnesium Oxide (Mag-Ox) 400 Mg Tab 400 MG PO BID, TAB Metoprolol Tartrate (Lopressor) (Lopressor) 25 Mg Tab 25 MG PO BID, TAB Multivitamin (Multivitamin) Tab 1 TAB PO DAILY, TAB Potassium Chloride (Potassium Chloride Er) 10 Meq Tab 10 MEQ PO DAILY Prednisone (Prednisone) 10 Mg Tab 10 MG PO DIRECTED, #24 TAB 0 Refills starting 06/08/16: take 3 tabs daily x 3 days, then 2 tabs daily x 5 days, then 1 tab daily x 5 days, then stop. Take with food. Ropinirole (Requip) 0.5 Mg Tab 0.5 MG PO DAILY, TAB Saline (Saline Nasal [place]) 0.65 % Spr 2 SPRAYS ADELA BID Sertraline (Zoloft) 50 Mg Tab 50 MG PO HS, TAB Sodium Phosphate/Biphosphate (Fleet Enema) Emy 1 EA OH UD PRN for NO RESULTS FROM SUPPOSITORY , BTL Tiotropium [place] (Spiriva Handihaler) 5 Puff/90 Mcg Aerp 1 PUFF PO DAILY, #1 INHALER 2 Refills [Liquid Protein] () 30 ML PO BID [id number] Discontinued Medications: Insulin Glargine (Lantus) 100 Unit/Ml Inj 30 UNITS SC QPM, #1 VIAL 2 Refills Warfarin Sodium (Coumadin) 3 Mg Tab 3 MG PO DAILY, TAB Hospital Course 86-year-old chronically ill female presents with hypoxia, with acute hypoxic respiratory failure as a diagnosis. 1. Chronic hypoxic respiratory failure. She failed outpatient bumex therapy setting with hypoxemia room air sat of 76% proBNP of 1966 and a chest x-ray consistent with congestive heart failure. She was treated with IV Bumex and responded well to therapy. She was converted back to oral Bumex therapy and sent to the nursing facility. 2. Atrial fibrillation, she is rate controlled maintaining metoprolol. 3. Hypertension we'll continue her amlodipine and Plavix for cardiovascular protection 4. 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 5. She remains depressed from her chronic illness and is currently on both Zoloft and Lexapro 6. She seems of some urinary retention and a Myers catheter was placed 7. Diabetes 8. DVT prevention her Coumadin restarted Total Time Spent: Greater than 30 minutes This includes examination of the patient, discharge planning, medication reconciliation, and communication with other providers. Discharge Instructions Please refer to the electronic Patient Visit Report (Discharge Instructions) for additional information.
== END 2016-09-13 15:49 | DRG 189 ==
LOC: EDBD 08:35 → C.EDA 08:36 → C.4E 11:04 → ENRESERV 11:19 → C.4E 09-08 19:12 → OBSVTOIN 09-10 12:32
PROVIDERS: ADMIT Internal Medicine; ATTEND Internal Medicine
DX: J96.21 Acute and chronic respiratory failure with hypoxia (principal); J18.9 Pneumonia, unspecified organism; I48.91 Unspecified atrial fibrillation; N18.3 Chronic kidney disease, stage 3 (moderate); E11.9 Type 2 diabetes mellitus without complications; I51.9 Heart disease, unspecified; E78.5 Hyperlipidemia, unspecified; I73.9 Peripheral vascular disease, unspecified; F32.9 Major depressive disorder, single episode, unspecified; I50.9 Heart failure, unspecified; J44.9 Chronic obstructive pulmonary disease, unspecified; Z79.4 Long term (current) use of insulin; Z79.01 Long term (current) use of anticoagulants

== ENCOUNTER → 2016-09-15 | Outpatient (CLI) | payer OTHER ==
[~2016-09-15] MED LIST changes: +AMOX500C3 PO; +BMX1 PO; +CEFD300C3 PO; +CMD4 PO; +DOXY100C76 PO; +DRGTP25 TD; +FRRS300 PO; +GUAI100S16 PO; -INSDGI SC; +INSDGIPEN SC; +LIQUID PROTEIN PO; -LXP/10 PO; +MCRK20 PO; +MISCCAP80 PO; +MTR500 PO; +SERT50TA PO; +TRIA0.1C2 TOP; +WARF3TAB6 PO; -WARF4TAB PO; +WARF4TAB8 PO; +ZNTT/150 PO
[2016-09-15 10:03] LABS: INR 1.4 (0.9-1.1); PROTHROMBIN TIME (PATIENT) 15.4 SECONDS (9.0-12.0)
== END ==
LOC: C.LABUPBEA 08:59
PROVIDERS: ATTEND Family Medicine
DX: I48.91 Unspecified atrial fibrillation (principal)

== ENCOUNTER → 2016-09-19 | Outpatient (CLI) | payer OTHER ==
[2016-09-19 08:45] LABS: INR 3.2 (0.9-1.1); PROTHROMBIN TIME (PATIENT) 35.7 SECONDS (9.0-12.0)
== END | disposition home or self-care (01) ==
LOC: C.LABUPBEA 07:51
PROVIDERS: ATTEND Nurse Practitioner Family
DX: I48.91 Unspecified atrial fibrillation (principal)

== ENCOUNTER → 2016-09-22 | Outpatient (CLI) | payer OTHER ==
[2016-09-22 09:37] LABS: INR 2.5 (0.9-1.1); PROTHROMBIN TIME (PATIENT) 28.3 SECONDS (9.0-12.0)
== END ==
LOC: C.LABUPBEA 08:48
PROVIDERS: ATTEND Family Medicine
DX: I48.91 Unspecified atrial fibrillation (principal)

== ENCOUNTER → 2016-09-26 | Outpatient (CLI) | payer OTHER ==
[2016-09-26 09:55] LABS: PROTHROMBIN TIME (PATIENT) 43.3 SECONDS (9.0-12.0)
[2016-09-26 10:17] LABS: INR 3.8 (0.9-1.1)
== END ==
LOC: C.LABUPBEA 08:54
PROVIDERS: ATTEND Family Medicine
DX: I48.91 Unspecified atrial fibrillation (principal)

== ENCOUNTER → 2016-09-30 | Outpatient (CLI) | payer OTHER ==
[~2016-09-30] MED LIST changes: +INSDGI SC; +LXP/10 PO; +WARF3TAB PO; +WARF4TAB PO
[2016-09-30 09:58] LABS: PROTHROMBIN TIME (PATIENT) 59.2 SECONDS (9.0-12.0)
[2016-09-30 09:59] LABS: INR 5.2 (0.9-1.1)
== END ==
LOC: C.LABUPBEA 08:56
PROVIDERS: ATTEND Family Medicine
DX: Z01.89 Encounter for other specified special examinations (principal)

== ENCOUNTER → 2016-10-01 | Outpatient (CLI) | payer OTHER ==
[2016-10-01 19:17] LABS: URINE APPEARANCE TURBID (CLEAR); URINE BILIRUBIN NEG (NEG); URINE COLOR YELLOW; URINE EPITHELIAL CELL AUTO >30 /lpf (0-5); URINE NITRITE NEG (NEG); URINE PH 6.5 (4.5-7.5); URINE SPECIFIC GRAVITY 1.019 (1.000-1.030); UROBILINOGEN NEG (NEG); ZZUR CULT IF INDIC CLEAN CATCH YES
[2016-10-01 19:28] LABS: BLOOD UREA NITROGEN 26 mg/dl (7-18); BUN/CREATININE RATIO 38.6 (10-20); CALCIUM 8.8 mg/dl (8.5-10.1); CARBON DIOXIDE 37 mmol/L (21-32); CHLORIDE 100 mmol/L (98-107); CREATININE 0.68 mg/dl (0.60-1.20); GLUCOSE 105 mg/dl (70-99); POTASSIUM 4.4 mmol/L (3.5-5.1); SODIUM 138 mmol/L (136-145)
[2016-10-01 19:34] LABS: MANUAL MICROSCOPIC REQUIRED? NO; REVIEW REQ? YES
[2016-10-01 19:38] LABS: HEMATOCRIT 31.2 % (37-47); MEAN CORPUSCULAR HGB CONC 29.2 g/dl (32-36); MEAN PLATELET VOLUME 10.5 fL (7.4-10.4); PLATELET COUNT 140 K/uL (130-400); RED BLOOD COUNT 3.95 M/uL (4.2-5.4); WHITE BLOOD COUNT 8.53 K/uL (4.8-10.8)
[2016-10-01 19:39] LABS: ANISOCYTOSIS PRESENT; BASO % 0.2 %; BASO ABS # 0.02 K/uL (0-0.2); COMPLETE YES; EOS % 1.5 %; IG% 0.2 %; LYMPH % 10.1 %; LYMPH ABS # 0.86 K/uL (1.2-3.4); MONO % 8.6 %; NEUT % 79.4 %
[2016-10-01 21:59] LABS: BLOOD UREA NITROGEN 26 mg/dl (7-18); BUN/CREATININE RATIO 38.6 (10-20); CREATININE 0.68 mg/dl (0.60-1.20); GLUCOSE 105 mg/dl (70-99)
[2016-10-01 22:00] LABS: CALCIUM 8.8 mg/dl (8.5-10.1); CARBON DIOXIDE 37 mmol/L (21-32); CHLORIDE 100 mmol/L (98-107); POTASSIUM 4.4 mmol/L (3.5-5.1); SODIUM 138 mmol/L (136-145)
[2016-10-01 22:01] LABS: ALB/GLOB RATIO 0.7 (0.9-2); ALKALINE PHOSPHATASE 117 U/L (45-117); ALT/SGPT 22 U/L (12-78); AST/SGOT 22 U/L (15-37)
== END ==
LOC: C.LABUPBEA 09:44
PROVIDERS: ATTEND Nurse Practitioner Family
DX: D64.9 Anemia, unspecified (principal); N39.0 Urinary tract infection, site not specified; E87.6 Hypokalemia; I48.91 Unspecified atrial fibrillation

== ENCOUNTER → 2016-10-01 | Outpatient (CLI) | payer OTHER ==
[2016-10-01 09:51] LABS: INR 2.9 (0.9-1.1); PROTHROMBIN TIME (PATIENT) 32.6 SECONDS (9.0-12.0)
== END ==
LOC: C.LABUPBEA 09:09
PROVIDERS: ATTEND Family Medicine
DX: I48.91 Unspecified atrial fibrillation (principal)

== ENCOUNTER → 2016-10-03 | Outpatient (CLI) | payer OTHER ==
[~2016-10-03] MED LIST changes: -INSDGI SC; -LXP/10 PO; -WARF3TAB PO; -WARF4TAB PO
[2016-10-03 10:11] LABS: INR 1.4 (0.9-1.1); PROTHROMBIN TIME (PATIENT) 15.7 SECONDS (9.0-12.0)
== END | disposition home or self-care (01) ==
LOC: C.LABUPBEA 09:49
PROVIDERS: ATTEND Family Medicine
DX: I48.91 Unspecified atrial fibrillation (principal)

== ENCOUNTER → 2016-10-06 | Outpatient (CLI) | payer OTHER ==
[2016-10-06 11:16] LABS: INR 3.3 (0.9-1.1); PROTHROMBIN TIME (PATIENT) 36.7 SECONDS (9.0-12.0)
[2016-10-06 11:22] LABS: BLOOD UREA NITROGEN 19 mg/dl (7-18); BUN/CREATININE RATIO 36.6 (10-20); CALCIUM 9.3 mg/dl (8.5-10.1); CARBON DIOXIDE 36 mmol/L (21-32); CHLORIDE 102 mmol/L (98-107); CREATININE 0.51 mg/dl (0.60-1.20); GLUCOSE 89 mg/dl (70-99); POTASSIUM 4.4 mmol/L (3.5-5.1); SODIUM 141 mmol/L (136-145)
== END ==
LOC: C.LABUPBEA 09:28
PROVIDERS: ATTEND Family Medicine
DX: E03.9 Hypothyroidism, unspecified (principal); I48.91 Unspecified atrial fibrillation; Z76.89 Persons encountering health services in other specified circumstances

== ENCOUNTER → 2016-10-08 | Outpatient (CLI) | payer OTHER ==
[2016-10-08 08:51] LABS: MEAN CELL VOLUME 79.8 fL (80-100); MEAN CORPUSCULAR HEMOGLOBIN 23.1 pg (25-34); MEAN PLATELET VOLUME 10.4 fL (7.4-10.4); PLATELET COUNT 195 K/uL (130-400); RED BLOOD COUNT 3.76 M/uL (4.2-5.4); WHITE BLOOD COUNT 6.06 K/uL (4.8-10.8)
[2016-10-08 08:59] LABS: INR 2.4 (0.9-1.1); PROTHROMBIN TIME (PATIENT) 26.6 SECONDS (9.0-12.0)
== END ==
LOC: C.LABUPBEA 08:30
PROVIDERS: ATTEND Nurse Practitioner Family
DX: D63.8 Anemia in other chronic diseases classified elsewhere (principal); I48.91 Unspecified atrial fibrillation

== ENCOUNTER → 2016-10-10 | Outpatient (CLI) | payer OTHER ==
[2016-10-10 09:56] LABS: BLOOD UREA NITROGEN 18 mg/dl (7-18); BUN/CREATININE RATIO 33.7 (10-20); CALCIUM 8.8 mg/dl (8.5-10.1); CARBON DIOXIDE 38 mmol/L (21-32); CHLORIDE 103 mmol/L (98-107); CREATININE 0.53 mg/dl (0.60-1.20); GLUCOSE 111 mg/dl (70-99); POTASSIUM 3.4 mmol/L (3.5-5.1); SODIUM 141 mmol/L (136-145)
== END | disposition home or self-care (01) ==
LOC: C.LABSPEC 09:20
PROVIDERS: ATTEND Family Medicine
DX: E87.6 Hypokalemia (principal)

== ENCOUNTER → 2016-10-16 | Outpatient (CLI) | payer OTHER ==
[2016-10-16 10:15] LABS: PROTHROMBIN TIME (PATIENT) 54.1 SECONDS (9.0-12.0)
[2016-10-16 10:16] LABS: INR 4.7 (0.9-1.1)
== END ==
LOC: C.LABUPBEA 08:52
PROVIDERS: ATTEND Nurse Practitioner Family
DX: I48.91 Unspecified atrial fibrillation (principal)

== ENCOUNTER → 2016-10-17 | Outpatient (CLI) | payer OTHER ==
[2016-10-17 15:05] LABS: PROTHROMBIN TIME (PATIENT) 52.9 SECONDS (9.0-12.0)
[2016-10-17 15:11] LABS: INR 4.6 (0.9-1.1)
== END | disposition home or self-care (01) ==
LOC: C.LABUPBEA 09:00
PROVIDERS: ATTEND Nurse Practitioner Family
DX: I48.91 Unspecified atrial fibrillation (principal); E87.6 Hypokalemia

== ENCOUNTER → 2016-10-18 | Outpatient (CLI) | payer OTHER ==
[2016-10-18 22:08] LABS: PROTHROMBIN TIME (PATIENT) 60.2 SECONDS (9.0-12.0)
[2016-10-18 22:13] LABS: INR 5.3 (0.9-1.1)
== END | disposition home or self-care (01) ==
LOC: C.LABUPBEA 12:52
PROVIDERS: ATTEND Nurse Practitioner Family
DX: I48.91 Unspecified atrial fibrillation (principal)

== ENCOUNTER → 2016-10-19 | Outpatient (CLI) | payer OTHER ==
[2016-10-19 09:28] LABS: PROTHROMBIN TIME (PATIENT) 57.5 SECONDS (9.0-12.0)
== END | disposition home or self-care (01) ==
LOC: C.LABUPBEA 12:50
PROVIDERS: ATTEND Nurse Practitioner Family
DX: I48.91 Unspecified atrial fibrillation (principal)

== ENCOUNTER → 2016-10-20 | Outpatient (CLI) | payer OTHER ==
[2016-10-20 10:13] LABS: HEMATOCRIT 32.1 % (37-47); MEAN CELL VOLUME 78.5 fL (80-100); MEAN CORPUSCULAR HEMOGLOBIN 22.2 pg (25-34); MEAN CORPUSCULAR HGB CONC 28.3 g/dl (32-36); MEAN PLATELET VOLUME 10.5 fL (7.4-10.4); PLATELET COUNT 285 K/uL (130-400); RED BLOOD COUNT 4.09 M/uL (4.2-5.4); WHITE BLOOD COUNT 9.76 K/uL (4.8-10.8)
[2016-10-20 10:15] LABS: BLOOD UREA NITROGEN 20 mg/dl (7-18); BUN/CREATININE RATIO 39.2 (10-20); CARBON DIOXIDE 39 mmol/L (21-32); CHLORIDE 101 mmol/L (98-107); CREATININE 0.52 mg/dl (0.60-1.20); GLUCOSE 133 mg/dl (70-99); POTASSIUM 3.5 mmol/L (3.5-5.1); SODIUM 142 mmol/L (136-145)
[2016-10-20 10:19] LABS: PROTHROMBIN TIME (PATIENT) 40.8 SECONDS (9.0-12.0)
[2016-10-20 10:21] LABS: INR 3.6 (0.9-1.1)
== END | disposition home or self-care (01) ==
LOC: C.LABUPBEA 08:59
PROVIDERS: ATTEND Nurse Practitioner Family
DX: D64.9 Anemia, unspecified (principal); I50.9 Heart failure, unspecified; Z76.89 Persons encountering health services in other specified circumstances

== ENCOUNTER → 2016-10-22 | Outpatient (CLI) | payer OTHER ==
[2016-10-22 09:15] LABS: INR 2.7 (0.9-1.1); PROTHROMBIN TIME (PATIENT) 29.6 SECONDS (9.0-12.0)
== END ==
LOC: C.LABUPBEA 08:40
PROVIDERS: ATTEND Nurse Practitioner Family
DX: I48.91 Unspecified atrial fibrillation (principal)

== ENCOUNTER → 2016-10-24 | Outpatient (CLI) | payer OTHER ==
[2016-10-24 10:14] LABS: INR 1.4 (0.9-1.1); PROTHROMBIN TIME (PATIENT) 15.2 SECONDS (9.0-12.0)
== END ==
LOC: C.LABUPBEA 09:07
PROVIDERS: ATTEND Nurse Practitioner Family
DX: I48.91 Unspecified atrial fibrillation (principal)

== ENCOUNTER → 2016-10-31 | Outpatient (CLI) | payer OTHER ==
[2016-10-31 10:02] LABS: HEMATOCRIT 30.9 % (37-47)
--- NOTE | 2016-11-06 17:10 | CODING QUERY NO DIAGNOSIS ---
TREATMENT RENDERED WITHOUT A DIAGNOSIS 29 To promote full compliance with coding requirements relating to patient care, physician participation is requested in all cases of cigar head stringer uncertainty. Please assist us with providing a diagnosis/symptom for the test(s) below: A diagnosis/symptom was not documented on your Order. A valid diagnosis/symptom is required to bill all insurances. Please remember that we are unable to code a diagnosis of rule out, probable, possible, questionable, or suspected. DOS 10/31/16 Tests that require a diagnosis: * H & H DIAGNOSIS: *ON YOUR ORDER YOU HAVE DX CODE D63, THAT IS AN INVALID CODE, PLEASE ADD CORRECT DX CODE Provider Signature: Date: Thank you Marisol Sutton Health Information Management Once completed, please kindly fax back to [phone] For questions please call [phone]
== END ==
LOC: C.LABUPBEA 08:59
PROVIDERS: ATTEND Nurse Practitioner Family
DX: I48.91 Unspecified atrial fibrillation (principal); D64.9 Anemia, unspecified

== ENCOUNTER 2016-11-04 11:43 | Inpatient (IN) | payer OTHER ==
[~2016-11-04] VITALS: Ht 144.8 cm; Wt 92.7 kg
[~2016-11-04 11:43] MED LIST changes: -AMOX500C3 PO; -BMX1 PO; -CEFD300C3 PO; -DOXY100C76 PO; -DRGTP25 TD; -FRRS300 PO; -MCRK20 PO; -MISCCAP80 PO; -MTR500 PO; -TRIA0.1C2 TOP; -WARF3TAB6 PO; -WARF4TAB8 PO; -ZNTT/150 PO
--- NOTE | 2016-11-04 12:46 | EMERGENCY ROOM VISIT NOTE ---
History Report prepared by Caitlinibkleber: Moraima Meadows Under the Supervision of: Dr. Howard Gilbert M.D. First contact with patient: 12:32 Chief Complaint: RESPIRATORY PROBLEMS Stated Complaint: ABNORMAL CHEST Nursing Triage Summary: Pt presents from [facility] for recent complaints of dyspnea and hypoxia . CXR performed at [facility] and showed LLL infiltrate, sm left pleural effusion, and nodular changes bilaterally which f/u films were recommended for to r/o metastatic disease. Results were discussed with pts family and family requested pt be sent to ED for further eval. Pt has hx COPD, wears 3L02 chronic, sats 92% , denies any CP or dyspena upon arrival to ED. History of Present Illness The patient is a 86 year old female who presents to the Emergency Room with complaints of shortness of breath beginning a week ago. The patient notes that she has been coughing. The patient came in by ambulance from [facility]. She had a abnormal chest x-ray yesterday which showed a left lower lobe infiltrate and was started on doxycycline. It is also noted that the patient was hypoxic. History is limited due to mental state and possibly confusion. Source of History: patient History Limited By: other (limited secondary to poor historian) Onset: a week ago Associated Symptoms: + cough Review of Systems ROS limited secondary to poor historian 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 (14) PERIPH VASCULAR DIS NOS (15) Recurrent pneumonia Family History Unobtainable due to patient's condition Social History Smoking Status: Unknown if Ever Smoked Alcohol Use: none Drug Use: none Marital Status: Housing Status: jail Occupation Status: retired Current/Historical Medications Scheduled Albuterol Sulf (Proventil 0.083% 2.5MG/3ML), 2.5 MG INH Q6H Alendronate Sodium (Binosto), 70 MG PO WK Amlodipine (Norvasc), 5 MG PO DAILY Amoxicillin (Amoxil), 500 MG PO Q8 Atorvastatin (Lipitor), 40 MG PO QPM Benzonatate (Benzonatate), 100 MG PO TID Bepotastine Besilate (Bepreve), 1 DROP OPB BID Budesonide/Formoterol Fumarate (Symbicort 160/4.5 Inhaler ), 2 PUFFS INH BID Bumetanide (Bumetanide), 2.5 MG PO BID Calcium Carbonate-Vitamin D (Oscal 500/200 D-3), 1 TAB PO BID Cholecalciferol (Vitamin D3), 2,000 UNITS PO DAILY Clopidogrel (Plavix), 75 MG PO DAILY Digoxin (Digoxin), 0.125 MG PO QPM Doxycycline Monohydrate (Monodox), 100 MG PO BID Fentanyl (Fentanyl), 25 MCG TD [id number] Gabapentin (Neurontin), 900 MG PO TID Guaifenesin (Guaifenesin), 10 ML PO TID Guaifenesin Ext Rel (Mucinex Ext Rel), 1,200 MG PO Q12 Home O2 Therapy (Oxygen), 3 LITER NA CONTINOUS Insulin Aspart (Novolog Penfill), 4 UNITS SC AC Insulin Aspart (Novolog), 100 SC DIRECTED Insulin Glargine (Lantus Solostar), 40 UNITS SC QPM Latanoprost (Xalatan 0.005% Oph Anna), 1 DROPS OPB HS Levothyroxine Sodium (Levothyroxine Sodium), 25 MCG PO Q2D Magnesium Oxide (Mag-Ox), 400 MG PO BID Metoprolol Tartrate (Lopressor) (Lopressor), 25 MG PO BID Multivitamin (Multivitamin), 1 TAB PO DAILY Potassium Chloride (Klor-Con M20), 20 MEQ PO BID Probiotic Product (Probiotic), 1 CAP PO BID Ranitidine (Zantac), 150 MG PO BID Ropinirole (Requip), 0.5 MG PO DAILY Saline (Saline Nasal Mackay), 2 SPRAYS ADELA BID Sertraline (Zoloft), 50 MG PO HS Tiotropium Kenton (Spiriva Handihaler), 1 PUFF PO DAILY Triamcinolone Acetonide (Topic (Triderm), TOP TID Warfarin Sod (Jantoven), 3 MG PO 5XWK Warfarin Sod (Jantoven), 4 MG PO 2XWK [Liquid Protein], 30 ML PO BID Scheduled PRN Acetaminophen Tab (Tylenol), 650 MG PO Q6 PRN for Pain or Fever Bisacodyl (Bisac-Evac), 1 SUPP MI UD PRN for NO BM X4 DAYS Dextrose (Diabetic Use) (Insta-Glucose), 1 APPLN MT UD PRN for HYPOGLYCEMIA PROTOCOL Glucagon (Glucagon Emergency Kit), 1 MG IM UD PRN for HYPOGLYCEMIA Ipratropium-Albuterol (Duoneb), 3 ML INH Q4H PRN for sob/wheeze/cough Magnesium Hydroxide (Milk Of Magnesia), 30 ML PO UD PRN for NO BM X 9 SHIFTS Sodium Phosphate/Biphosphate (Fleet Enema), 1 EA MI UD PRN for NO RESULTS FROM SUPPOSITORY Allergies Coded Allergies: RICHARD Inhibitors (Verified Allergy, Unknown, unknown, 11/04/16) Aspirin (Verified Allergy, Unknown, unknown, 11/04/16) [place] Atenolol (Verified Allergy, Unknown, unknown; TAKES TOPROL XL W/O PROBLEM , 11/04/16) Cefprozil (Verified Allergy, Unknown, unknown, 11/04/16) TOLERATED ROCEPHIN 02/2014 FOR MULTIPLE DOSES Ciprofloxacin (Verified Allergy, Unknown, unknown, 11/04/16) Codeine (Verified Allergy, Unknown, unknown, 11/04/16) Fluticasone (Verified Allergy, Unknown, Unknown, 11/04/16) Furosemide (Verified Allergy, Unknown, ., 11/04/16) Hydrochlorothiazide (Verified Allergy, Unknown, unknown, 11/04/16) Hydrochlorothiazide w/Triamterene (Verified Allergy, Unknown, unknown, ) Ibuprofen (Verified Allergy, Unknown, unknown; HAS TAKEN ASA W/O PROBLEM, 11/04/16) Lisinopril (Verified Allergy, Unknown, unknown, 11/04/16) Meperidine (Verified Allergy, Unknown, unknown, 11/04/16) Niacinamide (Verified Allergy, Unknown, NICOTINAMIDE, 11/04/16) Penicillins (Verified Allergy, Unknown, UNKNOWN, 11/04/16) TOLERATED ROCEPHIN 02/2014 FOR MULTIPLE DOSES Quinolones (Verified Allergy, Unknown, 11/04/16) Rofecoxib (Verified Allergy, Unknown, unknown, 11/04/16) Salmeterol (Verified Allergy, Unknown, Unknown, 11/04/16) Spironolactone (Verified Allergy, Unknown, unknown, 11/04/16) Statins (Verified Allergy, Unknown, unknown, 11/04/16) Sulfa Antibiotics (Verified Allergy, Unknown, ., 11/04/16) Physical Exam Vital Signs Date Time Temp Pulse Resp B/P (MAP) Pulse Ox O2 Delivery O2 Flow Rate FiO2 11/04/16 16:40 69 18 107/62 91 Nasal Cannula 3.0 11/04/16 16:04 71 11/04/16 14:50 79 20 151/70 97 Nasal Cannula 3.0 11/04/16 13:18 93 Nasal Cannula 3.0 11/04/16 13:18 93 Nasal Cannula 3.0 11/04/16 12:14 92 Room Air 11/04/16 12:14 36.9 92 18 126/58 95 Room Air 11/04/16 12:14 92 Nasal Cannula 3.0 11/04/16 11:54 102 Physical Exam GENERAL: Patient is in no acute distress. HEENT: No acute trauma, normocephalic atraumatic, mucous membranes moist, no nasal congestion, no scleral icterus. NECK: No stridor, no adenopathy, no meningismus, trachea is midline. LUNGS: Clear to auscultation bilaterally when listening anterior, no wheeze, no rhonchi, breath sounds equal. HEART: 4/6 systolic murmur, irregular rhythm, normal rate. ABDOMEN: Soft, nontender, bowel sounds positive, no hernias, no peritonitis. EXTREMITIES: No cyanosis, full range of motion of all the joints without pain or difficulty, no signs for acute trauma. NEUROLOGIC: Sleepy, confused, no focal motor deficits, poor historian. SKIN: No rash, no jaundice, no diaphoresis. Medical Decision & Procedures ER Provider Diagnostic Interpretation: Radiology results as stated below per my review and radiologist interpretation: CHEST ONE VIEW PORTABLE FINDINGS: Cardiac silhouette is moderately enlarged. Single lead left pectoral pacer is noted with lead intact. There is atherosclerosis of the aorta. No pneumothorax identified. Small left and trace right pleural effusions are noted with persistent bibasilar hazy opacities left greater than right, pulmonary vascular congestion with background interstitial coarsening. Pattern of disease appears similar to comparison study 09/07/2016. The bones are moderately demineralized and appear grossly intact. IMPRESSION: 1. Cardiomegaly with mild pulmonary edema pattern, similar from comparison 09/07/2016. 2. Small left and trace right pleural effusions are again seen with left greater than right bibasilar opacities suggesting atelectasis with pneumonia also in the differential. Correlate these findings with CT of the chest scheduled for later today. The above report was generated using voice recognition software. It may contain grammatical, syntax or spelling errors. Electronically signed by: Richard Sorenson M.D. CT OF THE CHEST WITH IV CONTRAST FINDINGS: The heart is moderately enlarged. A left subclavian pacer is in place. There is no pericardial effusion. There are multiple mildly enlarged mediastinal and bilateral hilar lymph nodes which have developed since CT of June 06, 2016. Index precarinal lymph node measures 1.6 cm in short axis diameter. There is bowing of the posterior wall of the trachea. Secretions within the airways are noted. There is no pneumothorax. Small left and trace right pleural effusions are present. Lungs are suboptimally assessed due to respiratory motion. There is no cavitation. Interlobular septal thickening indicates pulmonary edema. Scattered airspace opacities are noted as well as mosaic attenuation. Left lower lobe opacity is noted with volume loss. Bony thorax and upper abdomen are unremarkable. There is extensive atherosclerotic plaque of the aorta and branch vessels. IMPRESSION: 1. Interlobular septal thickening consistent with pulmonary edema with small left and trace right pleural effusions. Scattered groundglass opacities within lungs could reflect alveolar edema or a superimposed infectious process. 2. Narrowing of the airway with bowing of the posterior wall of the trachea which may reflect tracheomalacia. Secretions throughout the airways with bronchial wall thickening. 3. Mild mediastinal and bilateral hilar lymphadenopathy which is new since CT of June 06, 2016. This is nonspecific but may be related to pulmonary edema. 4. Moderate cardiomegaly. Electronically signed by: Sajan uRst M.D. Laboratory Results 11/04/16 12:48 Red Blood Count 4.23, Mean Corpuscular Volume 77.5, Mean Corpuscular Hemoglobin 22.5, Mean Corpuscular Hemoglobin Concent 29.0, Mean Platelet Volume 10.9, Neutrophils (%) (Auto) 74.9, Lymphocytes (%) (Auto) 10.2, Monocytes (%) (Auto) 10.2, Eosinophils (%) (Auto) 4.0, Basophils (%) (Auto) 0.4, Neutrophils # (Auto ) 7.55, Lymphocytes # (Auto) 1.03, Monocytes # (Auto) 1.03, Eosinophils # (Auto ) 0.40, Basophils # (Auto) 0.04 11/04/16 12:48 Test 11/04/16 12:48 11/04/16 13:07 11/04/16 14:50 11/04/16 15:59 White Blood Count 10.08 K/uL (4.8-10.8) Red Blood Count 4.23 M/uL (4.2-5.4) Hemoglobin 9.5 g/dL (12.0-16.0) Hematocrit 32.8 % (37-47) Mean Corpuscular Volume 77.5 fL (80-100) Mean Corpuscular Hemoglobin 22.5 pg (25-34) Mean Corpuscular Hemoglobin Concent 29.0 g/dl (32-36) Platelet Count 284 K/uL (130-400) Mean Platelet Volume 10.9 fL (7.4-10.4) Neutrophils (%) (Auto) 74.9 % Lymphocytes (%) (Auto) 10.2 % Monocytes (%) (Auto) 10.2 % Eosinophils (%) (Auto) 4.0 % Basophils (%) (Auto) 0.4 % Neutrophils # (Auto) 7.55 K/uL (1.4-6.5) Lymphocytes # (Auto) 1.03 K/uL (1.2-3.4) Monocytes # (Auto) 1.03 K/uL (0.11-0.59) Eosinophils # (Auto) 0.40 K/uL (0-0.5) Basophils # (Auto) 0.04 K/uL (0-0.2) RDW Standard Deviation 60.3 fL (36.4-46.3) RDW Coefficient of Variation 21.4 % (11.5-14.5) Immature Granulocyte % (Auto) 0.3 % Immature Granulocyte # (Auto) 0.03 K/uL (0.00-0.02) Poikilocytosis PRESENT Anisocytosis PRESENT Prothrombin Time 45.5 SECONDS (9.0-12.0) Prothromb Time International Ratio 4.0 (0.9-1.1) Activated Partial Thromboplast Time 39.2 SECONDS (21.0-31.0) Partial Thromboplastin Ratio 1.5 Anion Gap 2.0 mmol/L (3-11) Estimated GFR () 84.4 Estimated GFR (Non- 72.8 BUN/Creatinine Ratio 31.2 (10-20) Calcium Level 8.8 mg/dl (8.5-10.1) Magnesium Level 2.4 mg/dl (1.8-2.4) Total Bilirubin 0.5 mg/dl (0.2-1) Aspartate Amino Transf (AST/SGOT) 22 U/L (15-37) Alanine Aminotransferase (ALT/SGPT) 22 U/L (12-78) Alkaline Phosphatase 174 U/L (45-117) Troponin I 0.023 ng/ml (0-0.045) Total Protein 6.8 gm/dl (6.4-8.2) Albumin 2.6 gm/dl (3.4-5.0) Globulin 4.2 gm/dl (2.5-4.0) Albumin/Globulin Ratio 0.6 (0.9-2) Thyroid Stimulating Hormone (TSH) 2.760 uIu/ml (0.300-4.500) Free Thyroxine 1.19 ng/dl (0.80-1.60) Lactic Acid Level 1.3 mmol/L (0.4-2.0) Urine Color YELLOW Urine Appearance CLEAR (CLEAR) Urine pH 7.0 (4.5-7.5) Urine Specific [place] 1.016 (1.000-1.030) Urine Protein NEG (NEG) Urine Glucose (UA) NEG (NEG) Urine Ketones NEG (NEG) Urine Occult Blood TRACE (NEG) Urine Nitrite NEG (NEG) Urine Bilirubin NEG (NEG) Urine Urobilinogen NEG (NEG) Urine Leukocyte Esterase LARGE (NEG) Urine WBC (Auto) >30 /hpf (0-5) Urine RBC (Auto) 5-10 /hpf (0-4) Urine Hyaline Casts (Auto) 1-5 /lpf (0-5) Urine Epithelial Cells (Auto) >30 /lpf (0-5) Urine Bacteria (Auto) NEG (NEG) Urine Renal Epithelial Cells 0-5 /lpf (0-5) Bedside Blood Gas pH (LAB) 7.41 (7.35-7.45) Bedside Blood Gas pCO2 (LAB) 62 mmHg (35-46) Bedside Blood Gas pO2 (LAB) 65 mmHg (80-95) Bedside Blood Gas HCO3 (LAB) 40 meq/L (19-24) Bedside Blood Gas Total CO2 > 40 mEq/l (24-31) Bedside Blood Gas Base Excess (LAB) 15.0 meq/L (-9-1.8) Bedside Blood Gas O2 Saturation 92.0 % (90-95) Laboratory results reviewed by me. Medications Administered Medications (Trade) Dose Ordered Sig/Tariq Route Start Time Stop Time Status Last Admin Dose Admin Aztreonam 2000 mg/ Dextrose 110 ml @ 100 mls/hr NOW STAT IV 11/04/16 15:53 11/04/16 16:58 DC 11/04/16 16:43 100 MLS/HR ECG Indication: SOB/dyspnea Rate (beats per minute): 103 Rhythm: atrial fibrillation Findings: no acute ischemic change, other (Significant artifact present, nonspecific T-wave changes ) ED Course 1237: The patient was evaluated in room C2b. A complete history and physical exam was performed. 1300: Ioversol 125 ml IV. 1530: [facility] the [facility] The patient will be evaluated for further management. 1535: Aztreonam 2,000 mg/Dextrose 110 ml @ 100 mls/hr IV. 1730: Upon reexamination the patient is resting. I discussed results and treatment plan with the patient. She verbalizes agreement and understanding. The patient will be evaluated for further management. Medical Decision Differential diagnosis includes but is not limited to: pneumonia, CHF, pneumothorax, PE, malignancy, hypoxia, CO2 retention, anemia. There is no leukocytosis. The patient is anemic but this is baseline. ABG does not show any acidosis, her CO2 is high and her O2 is low. This ABG is consistent with chronic CO2 retention. There is no significant electrolyte abnormality, kidney failure or hepatitis. EKG shows A. fib with artifact, no acute ischemia. Cardiac enzyme testing 1 is not consistent with acute cardiac injury. INR is elevated consistent with her Coumadin use. Chest x-ray shows possible CHF versus pneumonia, the left base seemed congested. Blood cultures are pending. Urinalysis is suggestive of infection, urine culture is pending. Chest CT shows CHF and possible lower lung pneumonia. The patient was given IV aztreonam as antibiotic coverage. She has been resting comfortably. Her vital signs are stable. She does require O2 to prevent hypoxia. The patient presents with hypoxia and difficulty breathing. She is a poor historian but it appears, her symptoms have been present for a few days and are worsening. I did speak to the on-call hospitalist, I spoke to case management. Given the hypoxia and the findings on chest CT, admission/observation is warranted. Medication Reconcilliation Current Medication List: was personally reviewed by me Blood Pressure Screening Patient's blood pressure: Normal blood pressure Consults Time Called: 1528 Consulting Physician: Dr. Finch Returned Call: 1530 Discussed the patient's case. The patient will be evaluated for further management. Impression Primary Impression: Hypoxia Additional Impressions: Pneumonia CHF (congestive heart failure) Scribe Attestation The scribe's documentation has been prepared under my direction and personally reviewed by me in its entirety. I confirm that the note above accurately reflects all work, treatment, procedures, and medical decision making performed by me. Departure Information Dispostion Being Evaluated By Hospitalist Referrals Jane Victoria (PCP) Patient Instructions My [facility] Problem Qualifiers
[2016-11-04] MEDS ORDERED: OPTIRAY 320 IV PRN (13:00)
--- NOTE | 2016-11-04 13:09 | DIAGNOSTIC IMAGING REPORT ---
CHEST ONE VIEW PORTABLE HISTORY: 86 years-old Female EVALUATE RESPIRATORY DISTRESS.DYSPNEA COMPARISON: Chest radiograph 09/07/2016 TECHNIQUE: Portable upright AP view of the chest FINDINGS: Cardiac silhouette is moderately enlarged. Single lead left pectoral pacer is noted with lead intact. There is atherosclerosis of the aorta. No pneumothorax identified. Small left and trace right pleural effusions are noted with persistent bibasilar hazy opacities left greater than right, pulmonary vascular congestion with background interstitial coarsening. Pattern of disease appears similar to comparison study 09/07/2016. The bones are moderately demineralized and appear grossly intact. IMPRESSION: 1. Cardiomegaly with mild pulmonary edema pattern, similar from comparison 09/07/2016. 2. Small left and trace right pleural effusions are again seen with left greater than right bibasilar opacities suggesting atelectasis with pneumonia also in the differential. Correlate these findings with CT of the chest scheduled for later today. The above report was generated using voice recognition software. It may contain grammatical, syntax or spelling errors. Electronically signed by: Richard Sorenson M.D. 11/04/2016 1:08 PM Dictated Date/Time: 11/04/2016 1:05 PM
[2016-11-04 13:37] LABS: BASO % 0.4 %; BASO ABS # 0.04 K/uL (0-0.2); HEMATOCRIT 32.8 % (37-47); IG% 0.3 %; LYMPH % 10.2 %; LYMPH ABS # 1.03 K/uL (1.2-3.4); MEAN CELL VOLUME 77.5 fL (80-100); MEAN CORPUSCULAR HEMOGLOBIN 22.5 pg (25-34); MEAN PLATELET VOLUME 10.9 fL (7.4-10.4); MONO % 10.2 %; NEUT % 74.9 %; PLATELET COUNT 284 K/uL (130-400); RED BLOOD COUNT 4.23 M/uL (4.2-5.4); WHITE BLOOD COUNT 10.08 K/uL (4.8-10.8)
[2016-11-04 13:38] LABS: PARTIAL THROMBOPLASTIN RATIO 1.5; PROTHROMBIN TIME (PATIENT) 45.5 SECONDS (9.0-12.0)
[2016-11-04 13:45] LABS: ALT/SGPT 22 U/L (12-78); BLOOD UREA NITROGEN 23 mg/dl (7-18); BUN/CREATININE RATIO 31.2 (10-20); CALCIUM 8.8 mg/dl (8.5-10.1); CARBON DIOXIDE 37 mmol/L (21-32); CHLORIDE 100 mmol/L (98-107); CREATININE 0.74 mg/dl (0.60-1.20); GLUCOSE 119 mg/dl (70-99); MAGNESIUM 2.4 mg/dl (1.8-2.4); POTASSIUM 3.9 mmol/L (3.5-5.1); SODIUM 139 mmol/L (136-145)
[2016-11-04] MEDS ORDERED: DRGTP25 TD (13:53)
[2016-11-04] MEDS ORDERED: WARF4TAB8 PO (13:53)
[2016-11-04] MEDS ORDERED: DOXY100C76 PO (13:53)
[2016-11-04] MEDS ORDERED: ZNTT/150 PO (13:53)
[2016-11-04] MEDS ORDERED: WARF3TAB6 PO (13:53)
[2016-11-04] MEDS ORDERED: TRIA0.1C2 TOP (13:53)
[2016-11-04] MEDS ORDERED: MISCCAP80 PO (13:53)
[2016-11-04] MEDS ORDERED: MCRK20 PO (13:53)
[2016-11-04] MEDS ORDERED: AMOX500C3 PO (13:53)
[2016-11-04] MEDS ORDERED: BMX1 PO (13:53)
[2016-11-04 14:00] LABS: ALB/GLOB RATIO 0.6 (0.9-2); ALKALINE PHOSPHATASE 174 U/L (45-117); AST/SGOT 22 U/L (15-37)
[2016-11-04 14:31] LABS: ANISOCYTOSIS PRESENT; COMPLETE YES; POIKILOCYTOSIS PRESENT
[2016-11-04 15:00] LABS: URINE APPEARANCE CLEAR (CLEAR); URINE BILIRUBIN NEG (NEG); URINE COLOR YELLOW; URINE EPITHELIAL CELL AUTO >30 /lpf (0-5); URINE NITRITE NEG (NEG); URINE SPECIFIC GRAVITY 1.016 (1.000-1.030); UROBILINOGEN NEG (NEG); ZZURINE CULT IF INDIC CATH YES
[2016-11-04 15:30] LABS: MANUAL MICROSCOPIC REQUIRED? NO; REVIEW REQ? YES
[2016-11-04] MEDS ORDERED: AZTREONAM IV 2,000 MG in DEXTROSE 5% 100ML 100 ML IV STA (15:53)
[2016-11-04 16:13] LABS: ISTAT ARTERIAL BLOOD GAS HCO3 40 meq/L (19-24); ISTAT ARTERIAL BLOOD GAS PCO2 62 mmHg (35-46); ISTAT ARTERIAL BLOOD GAS PO2 65 mmHg (80-95); ISTAT ARTERIAL BLOOD GAS pH 7.41 (7.35-7.45); ISTAT CARBON DIOXIDE > 40 mEq/l (24-31)
--- NOTE | 2016-11-04 16:50 | DIAGNOSTIC IMAGING REPORT ---
CT OF THE CHEST WITH IV CONTRAST CLINICAL HISTORY: Respiratory distress. Dyspnea. Abnormal chest radiograph. COMPARISON STUDY: Chest CT June 06, 2016 and chest radiograph November 04, 2016. TECHNIQUE: Following IV administration of 120 mL of Optiray-320, helical axial images of the chest were obtained. Sagittal and coronal reconstructions were viewed as well as maximal intensity projections on an independent 3-D workstation. A dose lowering technique was utilized adhering to the principles of ALARA. CT DOSE: 1057.54 mGy.cm FINDINGS: The heart is moderately enlarged. A left subclavian pacer is in place. There is no pericardial effusion. There are multiple mildly enlarged mediastinal and bilateral hilar lymph nodes which have developed since CT of June 06, 2016. Index precarinal lymph node measures 1.6 cm in short axis diameter. There is bowing of the posterior wall of the trachea. Secretions within the airways are noted. There is no pneumothorax. Small left and trace right pleural effusions are present. Lungs are suboptimally assessed due to respiratory motion. There is no cavitation. Interlobular septal thickening indicates pulmonary edema. Scattered airspace opacities are noted as well as mosaic attenuation. Left lower lobe opacity is noted with volume loss. Bony thorax and upper abdomen are unremarkable. There is extensive atherosclerotic plaque of the aorta and branch vessels. IMPRESSION: 1. Interlobular septal thickening consistent with pulmonary edema with small left and trace right pleural effusions. Scattered groundglass opacities within lungs could reflect alveolar edema or a superimposed infectious process. 2. Narrowing of the airway with bowing of the posterior wall of the trachea which may reflect tracheomalacia. Secretions throughout the airways with bronchial wall thickening. 3. Mild mediastinal and bilateral hilar lymphadenopathy which is new since CT of June 06, 2016. This is nonspecific but may be related to pulmonary edema. 4. Moderate cardiomegaly. Electronically signed by: Sajan Rust M.D. 11/04/2016 4:48 PM Dictated Date/Time: 11/04/2016 4:34 PM
[2016-11-04] MEDS ORDERED: ALBUT/IPRATROP 3MG/0.5MG NEB 3 ML VIAL INH PRN (17:00)
[2016-11-04] MEDS ORDERED: ONDANSETRON INJ 2 MG/ML 2 ML VIAL IV PRN (17:00)
[2016-11-04] MEDS ORDERED: POLYETHYLENE (MIRALAX) 17 GM PACK PO PRN (17:00)
[2016-11-04] MEDS ORDERED: ACETAMINOPHEN 325 MG TAB PO PRN (17:00)
[2016-11-04] MEDS ORDERED: MAGNESIUM HYDROXIDE SUSP 30 ML UDC PO PRN (17:00)
[2016-11-04] MEDS ORDERED: ALUMINUM/MAGNESIUM/SIMETH (MAALOX MAX) 30 ML UDC PO PRN (17:00)
--- NOTE | 2016-11-04 17:20 | History and Physical ---
History & Physical Date & Time of Service: Nov 04, 2016 at 17:16 Chief Complaint: Abnormal Chest Primary Care Physician: Jane Victoria History of Present Illness Source: clinic records, hospital records Ms. Powell is an 86 y/o female with PMHx of Chronic Respiratory Failure 2/2 COPD on Chronic 3 L, Persistent Atrial Fibrillation, HTN, Chronic Diastolic CHF , Diabetes, and Hypothyroidism who presents to the ED from [facility] for dyspnea and hypoxia x 1 week. HPI obtained from discussion with ED provider and hospital records as patient is lethargic. She opens eyes easily to verbal stimuli, will shake her head yes/no but will not participate in discussion, and quickly falls back asleep. Per ED provider, patient reports experiencing a cough throughout the week but no further details given. She had a CXR yesterday that showed a LLL infiltrate, small pleural effusions, and nodular changes and was started on Doxycycline. Upon exam, patient is resting flat in bed without respiratory distress and currently oxygenating adequately on 3 L O2 which is baseline. 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 (12) PERIPH VASCULAR DIS NOS Status: Chronic Family History Unobtainable due to patient's condition Social History Smoking Status: Unknown if Ever Smoked Smokeless Tobacco Use: Unknown Alcohol Use: none Drug Use: none Marital Status: Housing status: assisted living Occupational Status: retired Immunizations History of Influenza Vaccine: No Influenza Vaccine Date: Jun 01, 2011 History of Tetanus Vaccine?: utd History of Pneumococcal: Yes Pneumococcal Date: Sep 02, 2012 History of Hepatitis B Vaccine: No Multi-Drug Resistant Organisms History of MDRO: No Allergies Coded Allergies: RICHARD Inhibitors (Verified Allergy, Unknown, unknown, 11/04/16) Aspirin (Verified Allergy, Unknown, unknown, 11/04/16) [place] Atenolol (Verified Allergy, Unknown, unknown; TAKES TOPROL XL W/O PROBLEM , 11/04/16) Cefprozil (Verified Allergy, Unknown, unknown, 11/04/16) TOLERATED ROCEPHIN 02/2014 FOR MULTIPLE DOSES Ciprofloxacin (Verified Allergy, Unknown, unknown, 11/04/16) Codeine (Verified Allergy, Unknown, unknown, 11/04/16) Fluticasone (Verified Allergy, Unknown, Unknown, 11/04/16) Furosemide (Verified Allergy, Unknown, ., 11/04/16) Hydrochlorothiazide (Verified Allergy, Unknown, unknown, 11/04/16) Hydrochlorothiazide w/Triamterene (Verified Allergy, Unknown, unknown, ) Ibuprofen (Verified Allergy, Unknown, unknown; HAS TAKEN ASA W/O PROBLEM, 11/04/16) Lisinopril (Verified Allergy, Unknown, unknown, 11/04/16) Meperidine (Verified Allergy, Unknown, unknown, 11/04/16) Niacinamide (Verified Allergy, Unknown, NICOTINAMIDE, 11/04/16) Penicillins (Verified Allergy, Unknown, UNKNOWN, 11/06/16) TOLERATED ROCEPHIN 02/2014 FOR MULTIPLE DOSES, TOLERATED ZOSYN 08/26/2012-08/30 Quinolones (Verified Allergy, Unknown, 11/04/16) Rofecoxib (Verified Allergy, Unknown, unknown, 11/04/16) Salmeterol (Verified Allergy, Unknown, Unknown, 11/04/16) Spironolactone (Verified Allergy, Unknown, unknown, 11/04/16) Statins (Verified Allergy, Unknown, unknown, 11/04/16) Sulfa Antibiotics (Verified Allergy, Unknown, ., 11/04/16) Home Medications Scheduled Albuterol Sulf (Proventil 0.083% 2.5MG/3ML), 2.5 MG INH Q6H Alendronate Sodium (Binosto), 70 MG PO WK Amlodipine (Norvasc), 5 MG PO DAILY Amoxicillin (Amoxil), 500 MG PO Q8 Atorvastatin (Lipitor), 40 MG PO QPM Benzonatate (Benzonatate), 100 MG PO TID Bepotastine Besilate (Bepreve), 1 DROP OPB BID Budesonide/Formoterol Fumarate (Symbicort 160/4.5 Inhaler ), 2 PUFFS INH BID Bumetanide (Bumetanide), 2.5 MG PO BID Calcium Carbonate-Vitamin D (Oscal 500/200 D-3), 1 TAB PO BID Cholecalciferol (Vitamin D3), 2,000 UNITS PO DAILY Clopidogrel (Plavix), 75 MG PO DAILY Digoxin (Digoxin), 0.125 MG PO QPM Doxycycline Monohydrate (Monodox), 100 MG PO BID Fentanyl (Fentanyl), 25 MCG TD [id number] Gabapentin (Neurontin), 900 MG PO TID Guaifenesin (Guaifenesin), 10 ML PO TID Guaifenesin Ext Rel (Mucinex Ext Rel), 1,200 MG PO Q12 Home O2 Therapy (Oxygen), 3 LITER NA CONTINOUS Insulin Aspart (Novolog Penfill), 4 UNITS SC AC Insulin Aspart (Novolog), 100 SC DIRECTED Insulin Glargine (Lantus Solostar), 40 UNITS SC QPM Latanoprost (Xalatan 0.005% Oph Anna), 1 DROPS OPB HS Levothyroxine Sodium (Levothyroxine Sodium), 25 MCG PO Q2D Magnesium Oxide (Mag-Ox), 400 MG PO BID Metoprolol Tartrate (Lopressor) (Lopressor), 25 MG PO BID Multivitamin (Multivitamin), 1 TAB PO DAILY Potassium Chloride (Klor-Con M20), 20 MEQ PO BID Probiotic Product (Probiotic), 1 CAP PO BID Ranitidine (Zantac), 150 MG PO BID Ropinirole (Requip), 0.5 MG PO DAILY Saline (Saline Nasal [place]), 2 SPRAYS [place]LA BID Sertraline (Zoloft), 50 MG PO HS Tiotropium Hematite (Spiriva Handihaler), 1 PUFF PO DAILY Triamcinolone Acetonide (Topic (Triderm), TOP TID Warfarin Sod (Jantoven), 3 MG PO 5XWK Warfarin Sod (Jantoven), 4 MG PO 2XWK [Liquid Protein], 30 ML PO BID Scheduled PRN Acetaminophen Tab (Tylenol), 650 MG PO Q6 PRN for Pain or Fever Bisacodyl (Bisac-Evac), 1 SUPP SD UD PRN for NO BM X4 DAYS Dextrose (Diabetic Use) (Insta-Glucose), 1 APPLN MT UD PRN for HYPOGLYCEMIA PROTOCOL Glucagon (Glucagon Emergency Kit), 1 MG IM UD PRN for HYPOGLYCEMIA Ipratropium-Albuterol (Duoneb), 3 ML INH Q4H PRN for sob/wheeze/cough Magnesium Hydroxide (Milk Of Magnesia), 30 ML PO UD PRN for NO BM X 9 SHIFTS Sodium Phosphate/Biphosphate (Fleet Enema), 1 EA SD UD PRN for NO RESULTS FROM SUPPOSITORY Review of Systems Unobtained as patient is sleeping and easily opens eyes to verbal stimuli but goes back to sleep. Physical Exam Vital Signs Date Time Temp Pulse Resp B/P (MAP) Pulse Ox O2 Delivery O2 Flow Rate FiO2 11/04/16 16:40 69 18 107/62 91 Nasal Cannula 3.0 11/04/16 16:04 71 11/04/16 14:50 79 20 151/70 97 Nasal Cannula 3.0 11/04/16 13:18 93 Nasal Cannula 3.0 11/04/16 13:18 93 Nasal Cannula 3.0 11/04/16 12:14 92 Room Air 11/04/16 12:14 36.9 92 18 126/58 95 Room Air 11/04/16 12:14 92 Nasal Cannula 3.0 11/04/16 11:54 102 General Appearance: WD/WN, no apparent distress, + obese Head: normocephalic, atraumatic Eyes: sclerae normal Neck: supple, no JVD, trachea midline Respiratory/Chest: lungs clear (patient is asleep and limited exam ), no respiratory distress, no accessory muscle use Cardiovascular: regular rate, rhythm, no gallop, + systolic murmur (IV/) Abdomen/GI: normal bowel sounds, non tender, soft Extremities/Musculoskelatal: + pertinent finding (1+ pitting edema to knee of LLE; RLE BKA) Neurologic/Psych: + pertinent finding (sleeping; awakes to verbal stimuli but quickly falls back to sleep) Skin: normal color, warm/dry Diagnostics Laboratory Results Results Past 24 Hours Test 11/04/16 12:48 11/04/16 13:07 11/04/16 14:21 11/04/16 14:50 Range/Units White Blood Count 10.08 4.8-10.8 K/uL Red Blood Count 4.23 4.2-5.4 M/uL Hemoglobin 9.5 12.0-16.0 g/dL Hematocrit 32.8 37-47 % Mean Corpuscular Volume 77.5 80-100 fL Mean Corpuscular Hemoglobin 22.5 25-34 pg Mean Corpuscular Hemoglobin Concent 29.0 32-36 g/dl Platelet Count 284 130-400 K/uL Mean Platelet Volume 10.9 7.4-10.4 fL Neutrophils (%) (Auto) 74.9 % Lymphocytes (%) (Auto) 10.2 % Monocytes (%) (Auto) 10.2 % Eosinophils (%) (Auto) 4.0 % Basophils (%) (Auto) 0.4 % Neutrophils # (Auto) 7.55 1.4-6.5 K/uL Lymphocytes # (Auto) 1.03 1.2-3.4 K/uL Monocytes # (Auto) 1.03 0.11-0.59 K/uL Eosinophils # (Auto) 0.40 0-0.5 K/uL Basophils # (Auto) 0.04 0-0.2 K/uL RDW Standard Deviation 60.3 36.4-46.3 fL RDW Coefficient of Variation 21.4 11.5-14.5 % Immature Granulocyte % (Auto) 0.3 % Immature Granulocyte # (Auto) 0.03 0.00-0.02 K/uL Poikilocytosis PRESENT Anisocytosis PRESENT Prothrombin Time 45.5 9.0-12.0 SECONDS Prothromb Time International Ratio 4.0 0.9-1.1 Activated Partial Thromboplast Time 39.2 21.0-31.0 SECONDS Partial Thromboplastin Ratio 1.5 Sodium Level 139 136-145 mmol/L Potassium Level 3.9 3.5-5.1 mmol/L Chloride Level 100 98-107 mmol/L Carbon Dioxide Level 37 21-32 mmol/L Anion Gap 2.0 3-11 mmol/L Blood Urea Nitrogen 23 7-18 mg/dl Creatinine 0.74 0.60-1.20 mg/dl Estimated GFR () 84.4 Estimated GFR (Non- 72.8 BUN/Creatinine Ratio 31.2 10-20 Random Glucose 119 70-99 mg/dl Calcium Level 8.8 8.5-10.1 mg/dl Magnesium Level 2.4 1.8-2.4 mg/dl Total Bilirubin 0.5 0.2-1 mg/dl Aspartate Amino Transf (AST/SGOT) 22 15-37 U/L Alanine Aminotransferase (ALT/SGPT) 22 12-78 U/L Alkaline Phosphatase 174 45-117 U/L Troponin I 0.023 0-0.045 ng/ml Total Protein 6.8 6.4-8.2 gm/dl Albumin 2.6 3.4-5.0 gm/dl Globulin 4.2 2.5-4.0 gm/dl Albumin/Globulin Ratio 0.6 0.9-2 Thyroid Stimulating Hormone (TSH) 2.760 0.300-4.500 uIu/ml Free Thyroxine 1.19 0.80-1.60 ng/dl Lactic Acid Level 1.3 0.4-2.0 mmol/L Urine Color YELLOW Urine Appearance CLEAR CLEAR Urine pH 7.0 4.5-7.5 Urine Specific [place] 1.016 1.000-1.030 Urine Protein NEG NEG Urine Glucose (UA) NEG NEG Urine Ketones NEG NEG Urine Occult Blood TRACE NEG Urine Nitrite NEG NEG Urine Bilirubin NEG NEG Urine Urobilinogen NEG NEG Urine Leukocyte Esterase LARGE NEG Urine WBC (Auto) >30 0-5 /hpf Urine RBC (Auto) 5-10 0-4 /hpf Urine Hyaline Casts (Auto) 1-5 0-5 /lpf Urine Epithelial Cells (Auto) >30 0-5 /lpf Urine Bacteria (Auto) NEG NEG Urine Renal Epithelial Cells 0-5 0-5 /lpf Test 11/04/16 15:59 Range/Units Bedside Blood Gas pH (LAB) 7.41 7.35-7.45 Bedside Blood Gas pCO2 (LAB) 62 35-46 mmHg Bedside Blood Gas pO2 (LAB) 65 80-95 mmHg Bedside Blood Gas HCO3 (LAB) 40 19-24 meq/L Bedside Blood Gas Total CO2 > 40 24-31 mEq/l Bedside Blood Gas Base Excess (LAB) 15.0 -9-1.8 meq/L Bedside Blood Gas O2 Saturation 92.0 90-95 % Microbiology Results 11/04/16 Blood Culture, Received Pending 11/04/16 Blood Culture, Received Pending 11/04/16 Urine Culture, Received Pending Diagnostic Radiology CHEST ONE VIEW PORTABLE FINDINGS: Cardiac silhouette is moderately enlarged. Single lead left pectoral pacer is noted with lead intact. There is atherosclerosis of the aorta. No pneumothorax identified. Small left and trace right pleural effusions are noted with persistent bibasilar hazy opacities left greater than right, pulmonary vascular congestion with background interstitial coarsening. Pattern of disease appears similar to comparison study 09/07/2016. The bones are moderately demineralized and appear grossly intact. IMPRESSION: 1. Cardiomegaly with mild pulmonary edema pattern, similar from comparison 09/07/2016. 2. Small left and trace right pleural effusions are again seen with left greater than right bibasilar opacities suggesting atelectasis with pneumonia also in the differential. Correlate these findings with CT of the chest scheduled for later today. CT OF THE CHEST WITH IV CONTRAST FINDINGS: The heart is moderately enlarged. A left subclavian pacer is in place. There is no pericardial effusion. There are multiple mildly enlarged mediastinal and bilateral hilar lymph nodes which have developed since CT of June 06, 2016. Index precarinal lymph node measures 1.6 cm in short axis diameter. There is bowing of the posterior wall of the trachea. Secretions within the airways are noted. There is no pneumothorax. Small left and trace right pleural effusions are present. Lungs are suboptimally assessed due to respiratory motion. There is no cavitation. Interlobular septal thickening indicates pulmonary edema. Scattered airspace opacities are noted as well as mosaic attenuation. Left lower lobe opacity is noted with volume loss. Bony thorax and upper abdomen are unremarkable. There is extensive atherosclerotic plaque of the aorta and branch vessels. IMPRESSION: 1. Interlobular septal thickening consistent with pulmonary edema with small left and trace right pleural effusions. Scattered groundglass opacities within lungs could reflect alveolar edema or a superimposed infectious process. 2. Narrowing of the airway with bowing of the posterior wall of the trachea which may reflect tracheomalacia. Secretions throughout the airways with bronchial wall thickening. 3. Mild mediastinal and bilateral hilar lymphadenopathy which is new since CT of June 06, 2016. This is nonspecific but may be related to pulmonary edema. 4. Moderate cardiomegaly. EKG Poor data quality, interpretation may be adversely affected Probable Sinus tachycardia Nonspecific ST and T wave abnormality Abnormal ECG When compared with ECG of 08-SEP-2016 10:09, Rate has increased Confirmed by SAMANTHA DAVISON MD ([id number]) on 11/04/2016 2:49:57 PM Impression Assessment and Plan Ms. Powell is an 86 y/o female with PMHx of Chronic Respiratory Failure 2/2 COPD on Chronic 3 L, Persistent Atrial Fibrillation, HTN, Chronic Diastolic CHF , Diabetes, and Hypothyroidism who presents to the ED from [facility] for dyspnea and hypoxia x 1 week. Pneumonia?: HCAP - Has had multiple admission for this - consideration for possible aspiration in the past - CT - interlobular septal thickening from pulmonary edema with small L and trace R pleural effusions; scattered groundglass opacities for possible alveolar edema vs infectious process; tracheomalacia with airway secretions; mild mediastinal and bilateral hilar lymphadenopathy which is new from May 2016 - Ceftriaxone 1 g IV daily and Vancomycin - patient has numerous allergies Metabolic Encephalopathy? 2/2 PNA: - Unsure of baseline mentation vs result of current illness vs hypoxia Acute on Chronic Hypoxic Respiratory Failure 2/2 COPD: Baseline 3L O2 - Duonebs PRN, Ventolin Q6H, Symbicort BID, and Spiriva daily Persistent Atrial Fibrillation: Rate Controlled - Digoxin 0.125 mg daily and Lopressor 25 mg BID Supratherapeutic INR: - Hold Coumadin - monitor INR and adjust accordingly Diabetes: - Hold home medications while lethargic and cover with SSI - When more awake and oral intake adequate - will need to reinstitute lantus and SSI for better control Chronic Diastolic CHF and Aortic Stenosis: - Clinically does not appear to be in CHF exacerbation - Bumex 2.5 mg BID - Plavix 75 mg daily and Atorvastatin 40 mg daily - Instituted 1500 mL fluid restriction as she follows this at [facility] Hypothyroidism: STABLE - Synthroid 25 mcg Q2D HTN: - Amlodipine 5 mg daily LLE Cellulitis: - No obvious erythema - appears more insufficiency with pitting edema present - On Amoxicillin - will hold while receiving IV Abx DVT Prophylaxis: Supratherapeutic INR Code Status: FULL RESUSCITATION - [facility] records state "with limitations" but could not find documetation to further delineate Disposition: - Resident of [facility] Attending Addendum: I have physically seen and examined this patient, have directed the physician assistants medical activities, and agree with the H&P as noted above with the following exceptions as noted. The patient is awake, disoriented, nonresponsive, obese, normocephalic and atraumatic, lying in bed and in no acute distress. HEENT--PERRL, EOMI, mucous membranes and oropharynx dry. Neck--supple, no JVD or bruits, thyroid normal, trachea midline, no adenopathy. Heart--normal S1 and S2, no extra beats. Systolic Murmur IV/. No rubs or gallops. Lungs--clear bilaterally with good air movement, no respiratory distress, no accessory muscle use. Abdomen--normal bowel sounds and soft, nontender and nondistended, no hernias or masses, no organomegaly. Extremities--no cyanosis, clubbing. Bilateral pretibial 1+ pitting edema. There are good distal pulses b/l. Dermatologic--normal skin turgor, normal color, warm and dry, no abnormal lymph nodes, no rash. Neurologic--cranial nerves II through XII grossly intact, motor and sensory examination normal. Rheumatologic--normal range of motion, nontender, muscles and joints. Psychiatric--sleepy, briefly arousable without significant response. Assessment and Plan: Acute on chronic respiratory failure with hypoxia/Probable aspiration pneumonia recurrence/metabolic encephalopathy-- Vancomycin IV, ceftriaxone 1 g IV daily, Duonebs every 4 hours while awake and every 2 hours when necessary. Left lower extremity cellulitis-- Antibiotics as above. Chronic diastolic CHF/aortic stenosis-- Continue Bumex 2.5 mg by mouth twice a day Continue Plavix 75 mg by mouth daily Atorvastatin 40 mg by mouth daily Amlodipine 5 mg by mouth daily 1500 ML fluid restriction as at [facility]. Level of Care Telemetry Resuscitation Status FULL RESUSCITATION VTE Prophylaxis VTE Risk Assessment Done? Y/N: Yes Risk Level: Moderate Given or contraindicated: Warfarin (Coumadin), T.E.D. Stockings, SCD's Social Service Consult Lives in Residential
[2016-11-04] MEDS ORDERED: GLUCOSE 10 TABS/TUBE PO PRN (17:45)
[2016-11-04] MEDS ORDERED: DEXTROSE 50% 50 ML SYR IV PRN (17:45)
[2016-11-04] MEDS ORDERED: GLUCAGON FOR INJ 1 MG VIAL SQ PRN (17:45)
[2016-11-04] MEDS ORDERED: GLUCOSE 40% GEL 15 GM TUBE PO PRN (17:45)
[2016-11-04] MEDS ORDERED: VANCOMYCIN INJ 2,500 MG in SODIUM CHLORIDE 0.9% 500ML 500 ML IV STA (19:15)
[2016-11-04] MEDS: TRIAMCINOLONE ACET 0.1% CR 15 GM TUBE EXT SCH (19:59)
[2016-11-04 20:00] VITALS: BP 116/66; PULSE 68; TEMP 36.6; O2SAT 96; Ht 144.8 cm; Wt 92.7 kg
[2016-11-04] MEDS ORDERED: CEFTRIAXONE SOD INJ 1 GM in DEXTROSE 5% ADD-VANTAGE 50ML 50 ML IV SCH (20:00)
[2016-11-04] MEDS: BUDESONIDE/FORMOTEROL FUMARATE 160/4.5 60 PUFFS/INHALER INH SCH (20:26)
[2016-11-04] MEDS: BUMETANIDE 1 MG TAB PO SCH (20:27)
[2016-11-04] MEDS: LATANOPROST 0.005% OP SOLN 2.5 ML BTL OPB SCH (20:27)
[2016-11-04] MEDS: BENZONATATE 100MG CAP PO SCH (20:28)
[2016-11-04] MEDS: INSULIN ASPART 100 UNITS/ML 3 ML PEN SC SCH (20:29)
[2016-11-04] MEDS: ATORVASTATIN 20 MG TAB PO SCH (20:29)
[2016-11-04] MEDS: ALBUTEROL 0.083% NEBU SOLN 3 ML VIAL INH SCH (21:00)
[2016-11-04] MEDS: SODIUM CHLORIDE 0.65% NA SOLN 45 ML (OCEAN) NAE SCH (21:43)
[2016-11-04] MEDS: POTASSIUM CHLORIDE 20 MEQ TABCR PO SCH (21:44)
[2016-11-04] MEDS: DIGOXIN 0.125 MG TAB PO SCH (21:44)
[2016-11-04] MEDS: GABAPENTIN 300 MG CAP PO SCH (21:45)
[2016-11-04] MEDS: METOPROLOL TARTRATE 25 MG TAB PO SCH (21:45)
[2016-11-04] MEDS: GUAIFENESIN 600 MG TABCR PO SCH (21:45)
[2016-11-04] MEDS: MAGNESIUM OXIDE 400 MG TAB PO SCH (21:45)
[2016-11-04] MEDS: RANITIDINE HCL 150 MG TAB PO SCH (21:46)
[2016-11-04] MEDS: SERTRALINE HCL 50 MG TAB PO SCH (21:46)
[2016-11-04] MEDS ORDERED: AZTREONAM CONSULT ACTIVE PRN ×2 (22:15)
--- NOTE | 2016-11-04 22:16 | Pharmacy Progress Note ---
Pharmacy Abx Initial Consult Date of Service Nov 04, 2016. Pharmacy Dosing Scope Date of Consult: 11/04/16 Consultation requested by: Yanira Mayberry PA-C Pharmacy is consulted to initiate vancomycin IV dosing therapy, order appropriate labs and adjust drug dose/frequency. Subjective The patient is a 86 year old female admitted on Nov 04, 2016 at 17:12. Objective Weight (Kilograms): 104.200 Vital Signs (Past 12Hrs) Vital Signs Past 12 Hours Date Time Temp Pulse Resp B/P (MAP) Pulse Ox O2 Delivery O2 Flow Rate FiO2 11/04/16 21:44 88 11/04/16 18:49 67 15 137/49 97 11/04/16 18:00 62 18 131/69 97 Nasal Cannula 3.0 11/04/16 16:40 69 18 107/62 91 Nasal Cannula 3.0 11/04/16 16:04 71 11/04/16 14:50 79 20 151/70 97 Nasal Cannula 3.0 11/04/16 13:18 93 Nasal Cannula 3.0 11/04/16 13:18 93 Nasal Cannula 3.0 11/04/16 12:14 92 Room Air 11/04/16 12:14 36.9 92 18 126/58 95 Room Air 11/04/16 12:14 92 Nasal Cannula 3.0 11/04/16 11:54 102 Lab Results (24Hrs) Laboratory Tests (24 Hours) Test 11/04/16 12:48 11/04/16 13:07 White Blood Count 10.08 K/uL (4.8-10.8) Red Blood Count 4.23 M/uL (4.2-5.4) Hemoglobin 9.5 g/dL (12.0-16.0) L Hematocrit 32.8 % (37-47) L Mean Corpuscular Volume 77.5 fL (80-100) L Mean Corpuscular Hemoglobin 22.5 pg (25-34) L Mean Corpuscular Hemoglobin Concent 29.0 g/dl (32-36) L Platelet Count 284 K/uL (130-400) Mean Platelet Volume 10.9 fL (7.4-10.4) H Neutrophils (%) (Auto) 74.9 % Lymphocytes (%) (Auto) 10.2 % Monocytes (%) (Auto) 10.2 % Eosinophils (%) (Auto) 4.0 % Basophils (%) (Auto) 0.4 % Neutrophils # (Auto) 7.55 K/uL (1.4-6.5) H Lymphocytes # (Auto) 1.03 K/uL (1.2-3.4) L Monocytes # (Auto) 1.03 K/uL (0.11-0.59) H Eosinophils # (Auto) 0.40 K/uL (0-0.5) Basophils # (Auto) 0.04 K/uL (0-0.2) Lactic Acid Level 1.3 mmol/L (0.4-2.0) Micro Results Date/Time Source Procedure Growth Status 11/04/16 16:00 Blood Blood Culture Pending Received 11/04/16 12:45 Blood Blood Culture Pending Received 11/04/16 19:17 Nasal MRSA DNA Surveillance Screen - Final Specimen Negative for MRSA by DNA Probe Complete 11/04/16 14:50 Urine,Catheterized Urine Culture Pending Received Risk Factors for Resistance * Resident in a prison or extended-care facility * Hospitalization for 48 hours or more within the past 90 days * History of infection with a multidrug-resistant organism: MRSA * Antimicrobial use within the last 90 days amoxicillin for cellulitis now on hold Assessment & Plan Assessment 86 year old female admitted with possible hospital acquired pneumonia. Patient has a history of aspiration. She has a history of COPD on home oxygen, atrial fibrillation, CHF, DM. She has extensive allergy list and risk factors for resistant organisms. Plan vancomycin/aztreonam for treatment of hospital acquired pneumonia Vancomycin IV * Loading dose: 2500 mg (25 mg/kg) * Maintenance dose: 1250 mg IV (12 mg/kg) every 12 hours (previous data indicates that patient requires q12 hour dosing even with her age and creatinine clearance of 40 mL/min; patient has a right above the knee amputation ) * Goal trough level for hospital acquired pneumonia : 15 to 20 mcg/mL * Trough ordered for 11/06/16 prior to 0900 dose * MRSA nasal swab ordered Azactam * for pneumonia, it is reasonable to do Azactam 2 gm IV q12 hours --- no dose adjustment for creatinine clearance over 30 mL/min Pharmacy will continue to follow and will adjust dose/frequency as necessary. Thank you.
[2016-11-04 23:58] VITALS: BP 96/47; PULSE 63; TEMP 36.9; O2SAT 97
[2016-11-04 23:59] VITALS: O2SAT 97
[2016-11-05] VITALS (14 sets, daily range): BP systolic 100–121; BP diastolic 55–76; PULSE 55–82; TEMP 36.5–37; O2SAT 90–98
[2016-11-05] MEDS: ALBUTEROL 0.083% NEBU SOLN 3 ML VIAL INH SCH ×4 (01:49→19:12)
[2016-11-05] MEDS: AZTREONAM 2000 MG in DEXTROSE 5% 100 ML IV SCH ×2 (04:02→16:14)
[2016-11-05 06:12] LABS: HEMATOCRIT 31.8 % (37-47); MEAN CELL VOLUME 78.7 fL (80-100); MEAN CORPUSCULAR HEMOGLOBIN 22.5 pg (25-34); MEAN CORPUSCULAR HGB CONC 28.6 g/dl (32-36); MEAN PLATELET VOLUME 9.7 fL (7.4-10.4); PLATELET COUNT 243 K/uL (130-400); RED BLOOD COUNT 4.04 M/uL (4.2-5.4); WHITE BLOOD COUNT 8.18 K/uL (4.8-10.8)
[2016-11-05 06:15] LABS: PROTHROMBIN TIME (PATIENT) 44.6 SECONDS (9.0-12.0)
[2016-11-05 06:20] LABS: INR 3.9 (0.9-1.1)
[2016-11-05 06:35] LABS: BUN/CREATININE RATIO 32.9 (10-20); CALCIUM 8.2 mg/dl (8.5-10.1); CREATININE 0.59 mg/dl (0.60-1.20); POTASSIUM 3.8 mmol/L (3.5-5.1)
--- NOTE | 2016-11-05 07:51 | Clinical Documentation Query ---
CLINICAL DOCUMENTATION QUERY H&P reflects this patient has having acute on chronic respiratory failure. The patient is noted to be in no respiratory distress and without accessory muscle use per H&P. VS review shows all pulse ox reading above 91% on patient's baseline O2 flow rate of 3L via NC. No adventitious lung sounds where noted. In your clinical opinion is this patient being managed for: ( X ) Acute and chronic respiratory failure evidenced by__(Please provide more clinical support to capture this diagnosis)_ ( ) Ruled out (Please state, if so) IF IN AGREEMENT, YOU MUST DOCUMENT ABOVE DIAGNOSTIC STATEMENT IN DAILY PROGRESS NOTES AND DISCHARGE SUMMARY. This document is not part of the patient's record. Thank You, Richard Mayberry, RN [phone]
[2016-11-05] MEDS: METOPROLOL TARTRATE 25 MG TAB PO SCH ×2 (09:00→21:35)
[2016-11-05] MEDS: TIOTROPIUM BROMIDE 5 PUFF/90 MCG INH INH SCH (09:07)
[2016-11-05] MEDS: SODIUM CHLORIDE 0.65% NA SOLN 45 ML (OCEAN) NAE SCH ×2 (09:07→21:29)
[2016-11-05] MEDS: VANCOMYCIN INJ 1,250 MG in SODIUM CHLORIDE 0.9% 250ML 250 ML IV SCH ×2 (09:08→21:33)
[2016-11-05] MEDS: TRIAMCINOLONE ACET 0.1% CR 15 GM TUBE EXT SCH ×3 (09:08→21:00)
[2016-11-05] MEDS: BUDESONIDE/FORMOTEROL FUMARATE 160/4.5 60 PUFFS/INHALER INH SCH ×2 (09:08→21:29)
[2016-11-05] MEDS: BUMETANIDE 1 MG TAB PO SCH ×2 (09:09→21:34)
[2016-11-05] MEDS: AMLODIPINE BESYLATE 5 MG TAB PO SCH (09:09)
[2016-11-05] MEDS: LEVOTHYROXINE 25 MCG TAB PO SCH (09:10)
[2016-11-05] MEDS: POTASSIUM CHLORIDE 20 MEQ TABCR PO SCH ×2 (09:10→21:35)
[2016-11-05] MEDS: CLOPIDOGREL BISULFATE 75 MG TAB PO SCH (09:10)
[2016-11-05] MEDS: ROPINIROLE HCL 0.25 MG TAB PO SCH (09:10)
[2016-11-05] MEDS: GUAIFENESIN 600 MG TABCR PO SCH ×2 (09:11→21:37)
[2016-11-05] MEDS: GABAPENTIN 300 MG CAP PO SCH ×3 (09:11→21:36)
[2016-11-05] MEDS: MAGNESIUM OXIDE 400 MG TAB PO SCH ×2 (09:12→21:37)
[2016-11-05] MEDS: RANITIDINE HCL 150 MG TAB PO SCH ×2 (09:14→21:37)
[2016-11-05] MEDS: BENZONATATE 100MG CAP PO SCH ×3 (09:14→21:34)
[2016-11-05] MEDS ORDERED: VANCOMYCIN CONSULT ACTIVE PRN (09:15)
[2016-11-05] MEDS: INSULIN ASPART 100 UNITS/ML 3 ML PEN SC SCH ×4 (09:19→21:38)
--- NOTE | 2016-11-05 12:26 | Progress Note ---
Subjective Date of Service: Nov 05, 2016. Subjective Pt evaluation today including: conversation w/ patient, physical exam, chart review, lab review, review of studies, review of inpatient medication list Resting comfortably in bed States she was coughing on something [employer] Reports no worsening shortness of breath NO acute events overnight Problem List Medical Problems: (1) CHF (congestive heart failure) Status: Acute (2) CHF (congestive heart failure) Status: Acute (3) COPD (chronic obstructive pulmonary disease) Status: Acute (4) Hypoxia Status: Acute (5) Hypoxia Status: Acute (6) Pneumonia Status: Acute (7) Pulmonary edema Status: Acute (8) Respiratory failure Status: Acute Review of Systems Constitutional: No fever, No chills, No sweats, No weakness Respiratory: + cough, + sputum, No wheezing, No shortness of breath, No dyspnea on exertion Cardiac: No chest pain, No orthopnea, No PND, No edema Abdomen: No pain, No nausea, No vomiting, No diarrhea, No constipation Musculoskeletal: No joint pain, No muscle pain, No swelling, No calf pain Female : No dysuria, No urinary frequency, No hematuria, No incontinence Neurologic: No memory loss, No paralysis, No weakness, No numbness/tingling Psychiatric: No depression symptoms, No anhedonism, No anxiety, No insomnia Endo: No fatigue, No excessive thirst Skin: No rash, No itch Objective Vital Signs Date Time Temp Pulse Resp B/P (MAP) Pulse Ox O2 Delivery O2 Flow Rate FiO2 11/05/16 11:31 37.0 71 19 118/67 (84) 92 Nasal Cannula 3.0 11/05/16 07:47 36.5 55 19 116/64 (81) 90 Nasal Cannula 3.0 11/05/16 07:04 72 16 98 Nasal Cannula 3.0 11/05/16 04:00 91 Nasal Cannula 3.0 11/05/16 03:46 36.8 58 18 112/55 (74) 91 Nasal Cannula 3.0 11/05/16 01:50 68 16 96 Nasal Cannula 3.0 11/04/16 23:59 97 Nasal Cannula 3.0 11/04/16 23:58 36.9 63 18 96/47 (63) 97 Nasal Cannula 3.0 11/04/16 21:44 88 11/04/16 20:00 36.6 68 17 116/66 96 Nasal Cannula 3.0 11/04/16 18:49 67 15 137/49 97 11/04/16 18:00 62 18 131/69 97 Nasal Cannula 3.0 11/04/16 16:40 69 18 107/62 91 Nasal Cannula 3.0 11/04/16 16:04 71 11/04/16 14:50 79 20 151/70 97 Nasal Cannula 3.0 11/04/16 13:18 93 Nasal Cannula 3.0 11/04/16 13:18 93 Nasal Cannula 3.0 Physical Exam General Appearance: WD/WN, no apparent distress Eyes: normal inspection, PERRL, EOMI, sclerae normal Neck: supple, no adenopathy, thyroid normal, no JVD Respiratory/Chest: chest non-tender, no respiratory distress, no accessory muscle use, + decreased breath sounds Cardiovascular: regular rate, rhythm, no edema, no gallop, no JVD Abdomen: normal bowel sounds, non tender, soft, no organomegaly Neurologic/Psychiatric: no motor/sensory deficits, alert, normal mood/affect, oriented x 3 Laboratory Results Last 24 Hours Test 11/04/16 12:48 11/04/16 13:07 11/04/16 14:50 11/04/16 15:59 White Blood Count 10.08 K/uL Red Blood Count 4.23 M/uL Hemoglobin 9.5 g/dL Hematocrit 32.8 % Mean Corpuscular Volume 77.5 fL Mean Corpuscular Hemoglobin 22.5 pg Mean Corpuscular Hemoglobin Concent 29.0 g/dl Platelet Count 284 K/uL Mean Platelet Volume 10.9 fL Neutrophils (%) (Auto) 74.9 % Lymphocytes (%) (Auto) 10.2 % Monocytes (%) (Auto) 10.2 % Eosinophils (%) (Auto) 4.0 % Basophils (%) (Auto) 0.4 % Neutrophils # (Auto) 7.55 K/uL Lymphocytes # (Auto) 1.03 K/uL Monocytes # (Auto) 1.03 K/uL Eosinophils # (Auto) 0.40 K/uL Basophils # (Auto) 0.04 K/uL RDW Standard Deviation 60.3 fL RDW Coefficient of Variation 21.4 % Immature Granulocyte % (Auto) 0.3 % Immature Granulocyte # (Auto) 0.03 K/uL Poikilocytosis PRESENT Anisocytosis PRESENT Prothrombin Time 45.5 SECONDS Prothromb Time International Ratio 4.0 Activated Partial Thromboplast Time 39.2 SECONDS Partial Thromboplastin Ratio 1.5 Sodium Level 139 mmol/L Potassium Level 3.9 mmol/L Chloride Level 100 mmol/L Carbon Dioxide Level 37 mmol/L Anion Gap 2.0 mmol/L Blood Urea Nitrogen 23 mg/dl Creatinine 0.74 mg/dl Estimated GFR () 84.4 Estimated GFR (Non- 72.8 BUN/Creatinine Ratio 31.2 Random Glucose 119 mg/dl Calcium Level 8.8 mg/dl Magnesium Level 2.4 mg/dl Total Bilirubin 0.5 mg/dl Aspartate Amino Transf (AST/SGOT) 22 U/L Alanine Aminotransferase (ALT/SGPT) 22 U/L Alkaline Phosphatase 174 U/L Troponin I 0.023 ng/ml Total Protein 6.8 gm/dl Albumin 2.6 gm/dl Globulin 4.2 gm/dl Albumin/Globulin Ratio 0.6 Thyroid Stimulating Hormone (TSH) 2.760 uIu/ml Free Thyroxine 1.19 ng/dl Lactic Acid Level 1.3 mmol/L Urine Color YELLOW Urine Appearance CLEAR Urine pH 7.0 Urine Specific Raymond 1.016 Urine Protein NEG Urine Glucose (UA) NEG Urine Ketones NEG Urine Occult Blood TRACE Urine Nitrite NEG Urine Bilirubin NEG Urine Urobilinogen NEG Urine Leukocyte Esterase LARGE Urine WBC (Auto) >30 /hpf Urine RBC (Auto) 5-10 /hpf Urine Hyaline Casts (Auto) 1-5 /lpf Urine Epithelial Cells (Auto) >30 /lpf Urine Bacteria (Auto) NEG Urine Renal Epithelial Cells 0-5 /lpf Bedside Blood Gas pH (LAB) 7.41 Bedside Blood Gas pCO2 (LAB) 62 mmHg Bedside Blood Gas pO2 (LAB) 65 mmHg Bedside Blood Gas HCO3 (LAB) 40 meq/L Bedside Blood Gas Total CO2 > 40 mEq/l Bedside Blood Gas Base Excess (LAB) 15.0 meq/L Bedside Blood Gas O2 Saturation 92.0 % Test 11/04/16 20:28 11/05/16 05:48 11/05/16 06:51 Bedside Glucose 115 mg/dl 102 mg/dl White Blood Count 8.18 K/uL Red Blood Count 4.04 M/uL Hemoglobin 9.1 g/dL Hematocrit 31.8 % Mean Corpuscular Volume 78.7 fL Mean Corpuscular Hemoglobin 22.5 pg Mean Corpuscular Hemoglobin Concent 28.6 g/dl RDW Standard Deviation 61.3 fL RDW Coefficient of Variation 21.3 % Platelet Count 243 K/uL Mean Platelet Volume 9.7 fL Prothrombin Time 44.6 SECONDS Prothromb Time International Ratio 3.9 Sodium Level 143 mmol/L Potassium Level 3.8 mmol/L Chloride Level 103 mmol/L Carbon Dioxide Level 39 mmol/L Anion Gap 1.0 mmol/L Blood Urea Nitrogen 19 mg/dl Creatinine 0.59 mg/dl Est Creatinine Clear Calc Drug Dose 67.8 ml/min Estimated GFR () 95.5 Estimated GFR (Non- 82.4 BUN/Creatinine Ratio 32.9 Random Glucose 102 mg/dl Calcium Level 8.2 mg/dl Digoxin Level 1.1 ng/ml Assessment and Plan Ms. Powell is an 86 y/o female with PMHx of Chronic Respiratory Failure 2/2 COPD on Chronic 3 L, Persistent Atrial Fibrillation, HTN, Chronic Diastolic CHF , Diabetes, and Hypothyroidism who presents to the ED from [facility] for dyspnea and hypoxia x 1 week. Acute on chronic resp failure 2nd to aspitariton pneumonia - Has had multiple admission for this - consideration for possible aspiration in the past, cont pureed diet - CT - interlobular septal thickening from pulmonary edema with small L and trace R pleural effusions; scattered groundglass opacities for possible alveolar edema vs infectious process; tracheomalacia with airway secretions; mild mediastinal and bilateral hilar lymphadenopathy which is new from May 2016 - Ceftriaxone 1 g IV daily and Vancomycin - patient has numerous allergies, no leukocytosis, obtain sputum cx Metabolic Encephalopathy? 2/2 PNA: - Unsure of baseline mentation vs result of current illness vs hypoxia Acute on Chronic Hypoxic Respiratory Failure 2/2 COPD: Baseline 3L O2 - Duonebs PRN, Ventolin Q6H, Symbicort BID, and Spiriva daily Persistent Atrial Fibrillation: Rate Controlled - Digoxin 0.125 mg daily and Lopressor 25 mg BID Supratherapeutic INR: - Hold Coumadin - monitor INR and adjust accordingly, still supratherapeutic Diabetes: - Hold home medications while lethargic and cover with SSI - When more awake and oral intake adequate - will need to reinstitute lantus and SSI for better control Chronic Diastolic CHF and Aortic Stenosis: - Clinically does not appear to be in CHF exacerbation - Bumex 2.5 mg BID - Plavix 75 mg daily and Atorvastatin 40 mg daily - Instituted 1500 mL fluid restriction as she follows this at [facility] Hypothyroidism: STABLE - Synthroid 25 mcg Q2D HTN: - Amlodipine 5 mg daily LLE Cellulitis: - No obvious erythema - appears more insufficiency with pitting edema present - On Amoxicillin - will hold while receiving IV Abx DVT Prophylaxis: Supratherapeutic INR Code Status: FULL RESUSCITATION - [facility] records state "with limitations" but could not find documetation to further delineate Disposition: - Resident of [facility]
[2016-11-05] MEDS: LATANOPROST 0.005% OP SOLN 2.5 ML BTL OPB SCH (21:29)
[2016-11-05] MEDS: ATORVASTATIN 20 MG TAB PO SCH (21:35)
[2016-11-05] MEDS: DIGOXIN 0.125 MG TAB PO SCH (21:36)
[2016-11-05] MEDS: SERTRALINE HCL 50 MG TAB PO SCH (21:37)
[2016-11-06] VITALS (13 sets, daily range): BP systolic 103–137; BP diastolic 48–66; PULSE 60–85; TEMP 36.3–36.8; O2SAT 92–100
[2016-11-06] MEDS: ALBUTEROL 0.083% NEBU SOLN 3 ML VIAL INH SCH ×4 (01:38→19:05)
[2016-11-06] MEDS: AZTREONAM 2000 MG in DEXTROSE 5% 100 ML IV SCH ×2 (04:04→15:34)
[2016-11-06] MEDS: TRIAMCINOLONE ACET 0.1% CR 15 GM TUBE EXT SCH ×3 (08:04→21:47)
[2016-11-06] MEDS: BUDESONIDE/FORMOTEROL FUMARATE 160/4.5 60 PUFFS/INHALER INH SCH ×2 (08:05→21:47)
[2016-11-06] MEDS: TIOTROPIUM BROMIDE 5 PUFF/90 MCG INH INH SCH (08:05)
[2016-11-06] MEDS: SODIUM CHLORIDE 0.65% NA SOLN 45 ML (OCEAN) NAE SCH ×2 (08:06→21:47)
[2016-11-06] MEDS: GABAPENTIN 300 MG CAP PO SCH ×3 (08:06→21:49)
[2016-11-06] MEDS: BENZONATATE 100MG CAP PO SCH ×3 (08:07→21:53)
[2016-11-06] MEDS: ROPINIROLE HCL 0.25 MG TAB PO SCH (08:08)
[2016-11-06] MEDS: CLOPIDOGREL BISULFATE 75 MG TAB PO SCH (08:08)
[2016-11-06] MEDS: BUMETANIDE 1 MG TAB PO SCH ×2 (08:09→21:50)
[2016-11-06] MEDS: POTASSIUM CHLORIDE 20 MEQ TABCR PO SCH ×2 (08:09→21:51)
[2016-11-06] MEDS: RANITIDINE HCL 150 MG TAB PO SCH ×2 (08:10→21:54)
[2016-11-06] MEDS: METOPROLOL TARTRATE 25 MG TAB PO SCH ×2 (08:10→21:52)
[2016-11-06] MEDS: GUAIFENESIN 600 MG TABCR PO SCH ×2 (08:10→21:49)
[2016-11-06] MEDS: AMLODIPINE BESYLATE 5 MG TAB PO SCH (08:11)
[2016-11-06] MEDS: MAGNESIUM OXIDE 400 MG TAB PO SCH ×2 (08:11→21:53)
[2016-11-06] MEDS: INSULIN ASPART 100 UNITS/ML 3 ML PEN SC SCH ×4 (08:15→21:56)
[2016-11-06] MEDS: VANCOMYCIN INJ 1,250 MG in SODIUM CHLORIDE 0.9% 250ML 250 ML IV SCH (08:17)
[2016-11-06] MEDS ORDERED: VANCOMYCIN TROUGH SCH (08:30)
[2016-11-06 09:07] LABS: INR 2.7 (0.9-1.1); PROTHROMBIN TIME (PATIENT) 30.5 SECONDS (9.0-12.0)
[2016-11-06 09:12] LABS: CREATININE 0.59 mg/dl (0.60-1.20)
--- NOTE | 2016-11-06 10:56 | Progress Note ---
Subjective Date of Service: Nov 06, 2016. Subjective Pt evaluation today including: conversation w/ patient, physical exam, chart review, lab review, review of studies, review of inpatient medication list Reported by nursing to aspirate on eggs this AM Pt reports slightly worsening shortness of breath No fevers or chills Problem List Medical Problems: (1) CHF (congestive heart failure) Status: Acute (2) CHF (congestive heart failure) Status: Acute (3) COPD (chronic obstructive pulmonary disease) Status: Acute (4) Hypoxia Status: Acute (5) Hypoxia Status: Acute (6) Pneumonia Status: Acute (7) Pulmonary edema Status: Acute (8) Respiratory failure Status: Acute Review of Systems Constitutional: No fever, No chills, No sweats, No weakness Eyes: No worsening of vision, No eye pain, No redness, No discharge Respiratory: + cough, + shortness of breath, + dyspnea at rest, No sputum, No wheezing Cardiac: No chest pain, No orthopnea, No PND, No edema Abdomen: No pain, No nausea, No vomiting, No diarrhea, No constipation Musculoskeletal: No joint pain, No muscle pain, No swelling, No calf pain Female : No dysuria, No urinary frequency, No hematuria, No incontinence Neurologic: No memory loss, No paralysis, No weakness, No numbness/tingling Psychiatric: No depression symptoms, No anhedonism, No anxiety, No insomnia Endo: No fatigue, No excessive thirst Skin: No rash, No itch Objective Vital Signs Date Time Temp Pulse Resp B/P (MAP) Pulse Ox O2 Delivery O2 Flow Rate FiO2 11/06/16 07:14 36.7 66 21 119/66 (83) 100 Nasal Cannula 3.0 11/06/16 07:00 65 16 94 Nasal Cannula 3.0 11/06/16 04:00 Nasal Cannula 3.0 11/06/16 04:00 36.8 68 20 117/63 (81) 98 Nasal Cannula 3.0 11/06/16 01:38 73 16 92 Nasal Cannula 3.0 11/06/16 00:00 36.7 83 22 128/63 (84) 93 Nasal Cannula 3.0 11/06/16 00:00 Nasal Cannula 3.0 11/05/16 21:36 83 11/05/16 20:00 93 Nasal Cannula 3.0 11/05/16 19:24 36.8 71 20 100/58 (72) 92 Nasal Cannula 2.0 11/05/16 19:12 68 16 92 Nasal Cannula 3.0 11/05/16 16:00 92 Nasal Cannula 3.0 11/05/16 15:19 36.8 82 19 121/76 (91) 91 Nasal Cannula 3.0 11/05/16 14:15 58 16 92 Nasal Cannula 3.0 11/05/16 12:00 92 Nasal Cannula 3.0 11/05/16 11:31 37.0 71 19 118/67 (84) 92 Nasal Cannula 3.0 Physical Exam General Appearance: WD/WN, + mild distress Eyes: normal inspection, PERRL, EOMI, sclerae normal Neck: supple, no adenopathy, thyroid normal, no JVD Respiratory/Chest: chest non-tender, lungs clear, no respiratory distress, + decreased breath sounds Cardiovascular: no edema, no gallop, no JVD, no murmur Abdomen: non tender, soft, no organomegaly Extremities: normal range of motion, non-tender, normal inspection, no pedal edema Neurologic/Psychiatric: no motor/sensory deficits, alert, normal mood/affect, oriented x 3 Laboratory Results Last 24 Hours Test 11/05/16 11:14 11/05/16 16:18 11/05/16 20:15 11/06/16 06:31 Bedside Glucose 142 mg/dl 178 mg/dl 171 mg/dl 178 mg/dl Test 11/06/16 08:33 Prothrombin Time 30.5 SECONDS Prothromb Time International Ratio 2.7 Creatinine 0.59 mg/dl Est Creatinine Clear Calc Drug Dose 66.7 ml/min Estimated GFR () 95.5 Estimated GFR (Non- 82.4 Vancomycin Level Trough 21.4 mcg/ml Assessment and Plan Ms. Powell is an 86 y/o female with PMHx of Chronic Respiratory Failure 2/2 COPD on Chronic 3 L, Persistent Atrial Fibrillation, HTN, Chronic Diastolic CHF , Diabetes, and Hypothyroidism who presents to the ED from [facility] for dyspnea and hypoxia x 1 week. Acute on chronic resp failure 2nd to aspiration pneumonia - Has had multiple admission for this - consideration for possible aspiration in the past, cont pureed diet - keep NPO, speech consulted, will likely need repeat video swallow - CT - interlobular septal thickening from pulmonary edema with small L and trace R pleural effusions; scattered groundglass opacities for possible alveolar edema vs infectious process; tracheomalacia with airway secretions; mild mediastinal and bilateral hilar lymphadenopathy which is new from May 2016 - Will DC vanc and start on zosyn IV renally dosed - patient has numerous allergies, no leukocytosis, obtain sputum cx Metabolic Encephalopathy? 2/ PNA: - Unsure of baseline mentation vs result of current illness vs hypoxia Acute on Chronic Hypoxic Respiratory Failure 2/2 COPD: Baseline 3L O2 - Duonebs PRN, Ventolin Q6H, Symbicort BID, and Spiriva daily Persistent Atrial Fibrillation: Rate Controlled - Digoxin 0.125 mg daily and Lopressor 25 mg BID Supratherapeutic INR: - Cont coumadin - monitor INR and adjust accordingly Diabetes: - Hold home medications while lethargic and cover with SSI - When more awake and oral intake adequate - will need to reinstitute lantus and SSI for better control Chronic Diastolic CHF and Aortic Stenosis: - Clinically does not appear to be in CHF exacerbation - Bumex 2.5 mg BID - Plavix 75 mg daily and Atorvastatin 40 mg daily - Instituted 1500 mL fluid restriction as she follows this at [facility] Hypothyroidism: STABLE - Synthroid 25 mcg Q2D HTN: - Amlodipine 5 mg daily LLE Cellulitis: - No obvious erythema - appears more insufficiency with pitting edema present - On Amoxicillin - will hold while receiving IV Abx DVT Prophylaxis: coumadin Code Status: FULL RESUSCITATION - [facility] records state "with limitations" but could not find documetation to further delineate Disposition: - Resident of [facility]
[2016-11-06] MEDS ORDERED: PIPERACILL/TAZOBAC CONSULT ACTIVE PRN (14:30)
[2016-11-06] MEDS ORDERED: PIPERACILL/TAZOBAC IV 3.375 GM in DEXTROSE 5% 100ML IV ONE (15:00)
[2016-11-06] MEDS: WARFARIN SOD 3 MG TAB PO SCH (15:36)
[2016-11-06] MEDS: LATANOPROST 0.005% OP SOLN 2.5 ML BTL OPB SCH (21:48)
[2016-11-06] MEDS: ATORVASTATIN 20 MG TAB PO SCH (21:48)
[2016-11-06] MEDS: DIGOXIN 0.125 MG TAB PO SCH (21:49)
[2016-11-06] MEDS: SERTRALINE HCL 50 MG TAB PO SCH (21:54)
[2016-11-06] MEDS: PIPERACILL/TAZOBAC IV 3.375 GM in DEXTROSE 5% 100ML IV SCH (22:44)
[2016-11-07] VITALS (9 sets, daily range): BP systolic 119–154; BP diastolic 66–76; PULSE 56–93; TEMP 36.4–37.1; O2SAT 90–96
[2016-11-07] MEDS: ALBUTEROL 0.083% NEBU SOLN 3 ML VIAL INH SCH ×4 (01:54→19:24)
[2016-11-07] MEDS: AZTREONAM 2000 MG in DEXTROSE 5% 100 ML IV SCH (04:18)
[2016-11-07] MEDS: PIPERACILL/TAZOBAC IV 3.375 GM in DEXTROSE 5% 100ML IV SCH ×3 (05:52→21:41)
[2016-11-07 07:09] LABS: INR 2.4 (0.9-1.1); PROTHROMBIN TIME (PATIENT) 26.4 SECONDS (9.0-12.0)
[2016-11-07 07:36] LABS: CREATININE 0.58 mg/dl (0.60-1.20)
[2016-11-07] MEDS: GABAPENTIN 300 MG CAP PO SCH ×2 (08:40→14:19)
[2016-11-07] MEDS: BUDESONIDE/FORMOTEROL FUMARATE 160/4.5 60 PUFFS/INHALER INH SCH ×2 (08:40→21:05)
[2016-11-07] MEDS: RANITIDINE HCL 150 MG TAB PO SCH ×2 (08:41→21:11)
[2016-11-07] MEDS: BENZONATATE 100MG CAP PO SCH ×3 (08:41→21:10)
[2016-11-07] MEDS: POTASSIUM CHLORIDE 20 MEQ TABCR PO SCH (08:41)
[2016-11-07] MEDS: METOPROLOL TARTRATE 25 MG TAB PO SCH ×2 (08:42→21:09)
[2016-11-07] MEDS: BUMETANIDE 1 MG TAB PO SCH (08:42)
[2016-11-07] MEDS: MAGNESIUM OXIDE 400 MG TAB PO SCH ×2 (08:43→21:10)
[2016-11-07] MEDS: GUAIFENESIN 600 MG TABCR PO SCH ×2 (08:43→21:10)
[2016-11-07] MEDS: AMLODIPINE BESYLATE 5 MG TAB PO SCH (08:43)
[2016-11-07] MEDS: ROPINIROLE HCL 0.25 MG TAB PO SCH (08:43)
[2016-11-07] MEDS: TIOTROPIUM BROMIDE 5 PUFF/90 MCG INH INH SCH (08:44)
[2016-11-07] MEDS: TRIAMCINOLONE ACET 0.1% CR 15 GM TUBE EXT SCH ×3 (08:47→21:05)
[2016-11-07] MEDS: SODIUM CHLORIDE 0.65% NA SOLN 45 ML (OCEAN) NAE SCH ×2 (08:47→21:06)
[2016-11-07] MEDS: LEVOTHYROXINE 25 MCG TAB PO SCH (08:48)
[2016-11-07] MEDS: CLOPIDOGREL BISULFATE 75 MG TAB PO SCH (08:54)
[2016-11-07] MEDS: INSULIN ASPART 100 UNITS/ML 3 ML PEN SC SCH ×4 (08:54→21:14)
--- NOTE | 2016-11-07 10:08 | DIAGNOSTIC IMAGING REPORT ---
CHEST 2 VIEWS ROUTINE CLINICAL HISTORY: Respiratory difficulty. Dyspnea. COMPARISON STUDY: Chest radiograph and chest CT November 04, 2016. FINDINGS: A single lead left subclavian pacemaker is in place. There is no pneumothorax. Small bilateral pleural effusions persist, left larger than right. Diffuse interstitial thickening is suggestive of pulmonary edema. Multifocal bilateral airspace opacities have increased. IMPRESSION: 1. Diffuse interstitial thickening consistent with pulmonary edema. 2. Interval increase in bilateral airspace opacities which could reflect alveolar edema or a superimposed infectious process. 3. Small bilateral pleural effusions, left larger than right. Electronically signed by: Sajan Rust M.D. 11/07/2016 10:06 AM Dictated Date/Time: 11/07/2016 10:04 AM
[2016-11-07] MEDS: WARFARIN SOD 3 MG TAB PO SCH (16:22)
[2016-11-07] MEDS ORDERED: BUMETANIDE IV ONE (17:00)
[2016-11-07] MEDS ORDERED: POTASSIUM CHLORIDE 20 MEQ TABCR PO SCH (21:00)
[2016-11-07] MEDS: LATANOPROST 0.005% OP SOLN 2.5 ML BTL OPB SCH (21:06)
[2016-11-07] MEDS: DIGOXIN 0.125 MG TAB PO SCH (21:08)
[2016-11-07] MEDS: ATORVASTATIN 20 MG TAB PO SCH (21:09)
[2016-11-07] MEDS: SERTRALINE HCL 50 MG TAB PO SCH (21:12)
[2016-11-07] MEDS ORDERED: INSULIN GLARGINE SOLOSTAR 100 UNITS/ML 3 ML PEN SC SCH (21:15)
[2016-11-07] MEDS: GABAPENTIN 600 MG TAB PO SCH (21:16)
[2016-11-08] VITALS (12 sets, daily range): BP systolic 109–144; BP diastolic 57–79; PULSE 51–70; TEMP 36.6–36.8; O2SAT 72–99
[2016-11-08] MEDS: ALBUTEROL 0.083% NEBU SOLN 3 ML VIAL INH SCH ×4 (01:53→19:15)
[2016-11-08] MEDS: PIPERACILL/TAZOBAC IV 3.375 GM in DEXTROSE 5% 100ML IV SCH ×2 (05:52→14:49)
[2016-11-08 06:03] LABS: INR 2.5 (0.9-1.1); PROTHROMBIN TIME (PATIENT) 27.7 SECONDS (9.0-12.0)
[2016-11-08 06:12] LABS: HEMATOCRIT 30.7 % (37-47); MEAN CELL VOLUME 77.3 fL (80-100); MEAN CORPUSCULAR HEMOGLOBIN 22.2 pg (25-34); MEAN CORPUSCULAR HGB CONC 28.7 g/dl (32-36); MEAN PLATELET VOLUME 10.2 fL (7.4-10.4); PLATELET COUNT 253 K/uL (130-400); RED BLOOD COUNT 3.97 M/uL (4.2-5.4); WHITE BLOOD COUNT 7.92 K/uL (4.8-10.8)
[2016-11-08 06:20] LABS: BUN/CREATININE RATIO 19.9 (10-20); CALCIUM 8.3 mg/dl (8.5-10.1); CREATININE 0.68 mg/dl (0.60-1.20); MAGNESIUM 2.3 mg/dl (1.8-2.4); POTASSIUM 3.6 mmol/L (3.5-5.1)
--- NOTE | 2016-11-08 06:24 | Progress Note ---
Subjective Date of Service: Nov 07, 2016. Subjective Pt evaluation today including: conversation w/ patient, physical exam, chart review, lab review, review of studies (chest CT, cxr), review of inpatient medication list Pain: denies during my visit PO Intake: fair per staff Voiding: incontinence patient yawning and sleepy during the encounter denies any specific complaints she knows she is in the hospital but doesn't understand why she is here Problem List Medical Problems: (1) CHF (congestive heart failure) Status: Acute (2) CHF (congestive heart failure) Status: Acute (3) COPD (chronic obstructive pulmonary disease) Status: Acute (4) Hypoxia Status: Acute (5) Hypoxia Status: Acute (6) Pneumonia Status: Acute (7) Pulmonary edema Status: Acute (8) Respiratory failure Status: Acute Review of Systems Constitutional: No fever Respiratory: No cough, No dyspnea at rest Cardiac: No chest pain Abdomen: No pain Objective Vital Signs Date Time Temp Pulse Resp B/P (MAP) Pulse Ox O2 Delivery O2 Flow Rate FiO2 11/07/16 20:00 90 Nasal Cannula 3.0 11/07/16 19:24 93 16 96 Nasal Cannula 3.0 11/07/16 19:16 36.6 86 18 123/66 (85) 90 Nasal Cannula 3.0 11/07/16 16:00 Nasal Cannula 3.0 11/07/16 15:34 37.1 73 18 121/66 (84) 96 Nasal Cannula 2.0 11/07/16 12:00 Nasal Cannula 3.0 11/07/16 11:52 36.4 71 21 143/68 (93) 96 Nasal Cannula 2.0 11/07/16 08:00 Nasal Cannula 3.0 11/07/16 07:12 36.5 62 20 154/76 (102) 93 Nasal Cannula 3.0 11/07/16 07:00 77 16 96 Nasal Cannula 3.0 11/07/16 04:00 Nasal Cannula 3.0 11/07/16 03:31 36.5 56 16 119/69 (86) 96 Nasal Cannula 3.5 11/07/16 01:54 74 16 96 Nasal Cannula 3.0 11/06/16 23:59 Nasal Cannula 3.0 11/06/16 23:30 36.7 60 23 137/63 (87) 97 Nasal Cannula 3.0 11/06/16 21:49 75 8/31/17 21:45 75 120/66 (84) Physical Exam General Appearance: no apparent distress, + obese, + pertinent finding (sleepy) ENT: pharynx normal (MM slightly dry) Neck: + JVD Respiratory/Chest: no respiratory distress, no accessory muscle use, + decreased breath sounds (bases), + wheezing (occasional b/l ) Cardiovascular: regular rate, rhythm, no gallop, + systolic murmur (2/6 RUSB) Abdomen: normal bowel sounds, non tender, soft, no organomegaly Extremities: + pedal edema (left leg, 1-2+), + pertinent finding (right AKA ) Neurologic/Psychiatric: alert, + disoriented, + pertinent finding (sleepy) Skin: + pertinent finding (stasis changes left leg but no superimposed cellulitis ) Laboratory Results Last 24 Hours Test 11/07/16 06:05 11/07/16 06:41 11/07/16 11:21 11/07/16 16:11 Bedside Glucose 189 mg/dl 170 mg/dl 224 mg/dl Prothrombin Time 26.4 SECONDS Prothromb Time International Ratio 2.4 Creatinine 0.58 mg/dl Est Creatinine Clear Calc Drug Dose 67.0 ml/min Estimated GFR () 96.1 Estimated GFR (Non- 82.9 Test 11/07/16 20:11 Bedside Glucose 192 mg/dl Assessment and Plan 86yo female with: 1. acute/chronic diastolic CHF - clinically and radiographically. Hold PO bumex; change to IV bumex. Daily weights, labs. Continue beta brad. 2. COPD - stable, without exacerbation. 3. chronic respiratory failure with hypoxia - stable O2 sats on NC O2. Suspect due to COPD. Cannot r/o OHS contributing. Cont nebs, inhalers for COPD. 4. question of aspiration pneumonia - remains on zosyn; d/c azactam. Speech therapy has evaluated; moist mech soft diet. 5. encephalopathy - metabolic from #4? toxic from very large dose of gabapentin? (900mg TID) Will lower gabapentin to 600mg TID. 6. a. fib - coumadin, lopressor, digoxin. INR therapeutic today. Repeat INR am. 7. microcytic anemia - check iron studies in am. CBC in am as well. 8. DVT proph - coumadin. 9. T2DM - uncontrolled - restart lantus 10 units. Novolog ac/hs. 10. aortic stenosis - noted. 11. hypothyroidism - continue synthroid 25mcg every other day. Most recent TSH was compensated. 12. HTN - controlled. if stable overnight d/c tele and move to med/surg Continued [facility] stay due to: multiple IV medications needed Discharge planning: halfway facility
[2016-11-08 06:27] LABS: FERRITIN 50.2 ng/ml (8.0-388.0)
[2016-11-08] MEDS: GABAPENTIN 600 MG TAB PO SCH ×3 (07:42→22:10)
[2016-11-08] MEDS: AMLODIPINE BESYLATE 5 MG TAB PO SCH (07:42)
[2016-11-08] MEDS: ROPINIROLE HCL 0.25 MG TAB PO SCH (07:43)
[2016-11-08] MEDS: BENZONATATE 100MG CAP PO SCH ×2 (07:43→14:47)
[2016-11-08] MEDS: MAGNESIUM OXIDE 400 MG TAB PO SCH ×2 (07:43→22:08)
[2016-11-08] MEDS: RANITIDINE HCL 150 MG TAB PO SCH ×2 (07:44→22:10)
[2016-11-08] MEDS: GUAIFENESIN 600 MG TABCR PO SCH ×2 (07:44→22:09)
[2016-11-08] MEDS: METOPROLOL TARTRATE 25 MG TAB PO SCH ×2 (07:44→22:08)
[2016-11-08] MEDS: CLOPIDOGREL BISULFATE 75 MG TAB PO SCH (07:44)
[2016-11-08] MEDS: BUDESONIDE/FORMOTEROL FUMARATE 160/4.5 60 PUFFS/INHALER INH SCH ×2 (07:45→22:04)
[2016-11-08] MEDS: TIOTROPIUM BROMIDE 5 PUFF/90 MCG INH INH SCH (07:45)
[2016-11-08] MEDS: TRIAMCINOLONE ACET 0.1% CR 15 GM TUBE EXT SCH ×3 (07:45→22:05)
[2016-11-08] MEDS: SODIUM CHLORIDE 0.65% NA SOLN 45 ML (OCEAN) NAE SCH ×2 (07:46→22:15)
[2016-11-08] MEDS: INSULIN ASPART 100 UNITS/ML 3 ML PEN SC SCH ×4 (07:59→22:13)
[2016-11-08] MEDS: BUMETANIDE IV SCH ×2 (09:04→16:55)
[2016-11-08] MEDS: POTASSIUM CHLORIDE 20 MEQ TABCR PO SCH ×3 (09:04→22:06)
[2016-11-08] MEDS: FERROUS SULFATE 325 MG TAB PO SCH ×3 (09:06→16:54)
[2016-11-08] MEDS: WARFARIN SOD 3 MG TAB PO SCH (16:54)
--- NOTE | 2016-11-08 20:17 | Progress Note ---
Subjective Date of Service: Nov 08, 2016. Subjective Pt evaluation today including: conversation w/ patient, physical exam, chart review, lab review, review of inpatient medication list Pain: she denies any pain in any location PO Intake: fair per staff Voiding: incontinence tele stable, no dysrhythmia she denies any complaints she is mildly confused but improved from yesterday Problem List Medical Problems: (1) CHF (congestive heart failure) Status: Acute (2) CHF (congestive heart failure) Status: Acute (3) COPD (chronic obstructive pulmonary disease) Status: Acute (4) Hypoxia Status: Acute (5) Hypoxia Status: Acute (6) Pneumonia Status: Acute (7) Pulmonary edema Status: Acute (8) Respiratory failure Status: Acute Review of Systems Respiratory: No dyspnea at rest Cardiac: No chest pain Abdomen: No pain Objective Vital Signs Date Time Temp Pulse Resp B/P (MAP) Pulse Ox O2 Delivery O2 Flow Rate FiO2 11/08/16 19:15 67 16 97 Nasal Cannula 3.0 11/08/16 17:13 36.8 56 18 134/67 (89) 97 Nasal Cannula 3.0 11/08/16 16:18 36.6 55 22 109/57 (74) 95 Nasal Cannula 3.0 11/08/16 16:00 Nasal Cannula 3.0 11/08/16 15:50 36.8 55 16 96 3.0 11/08/16 14:20 55 16 96 Nasal Cannula 3.0 11/08/16 12:00 Nasal Cannula 3.0 11/08/16 11:09 36.8 65 20 144/79 (100) 93 Nasal Cannula 4.0 11/08/16 08:00 Nasal Cannula 3.0 11/08/16 07:43 36.7 70 20 119/78 (92) 97 Room Air 11/08/16 07:12 70 16 72 Room Air 11/08/16 04:00 Nasal Cannula 3.0 11/08/16 03:55 36.6 56 18 138/73 (94) 93 Nasal Cannula 2.0 11/08/16 01:54 51 16 99 Nasal Cannula 3.0 11/08/16 00:00 36.8 66 18 114/61 (78) 91 Nasal Cannula 2.0 11/07/16 23:59 Nasal Cannula 3.0 11/07/16 21:08 71 Physical Exam General Appearance: no apparent distress, + obese ENT: pharynx normal Neck: + JVD Respiratory/Chest: no respiratory distress, no accessory muscle use, + decreased breath sounds (bases), + rales (fine, bases) Cardiovascular: regular rate, rhythm, no gallop Abdomen: normal bowel sounds, non tender, soft, no organomegaly, + hernia ( midline, reducible) Extremities: + pedal edema (left leg, 1+), + pertinent finding (right AKA) Skin: + pertinent finding (stasis changes left leg but no cellulitis or ulcerations) Laboratory Results Last 24 Hours Test 11/07/16 20:11 11/08/16 05:21 11/08/16 06:29 11/08/16 11:31 Bedside Glucose 192 mg/dl 186 mg/dl 146 mg/dl White Blood Count 7.92 K/uL Red Blood Count 3.97 M/uL Hemoglobin 8.8 g/dL Hematocrit 30.7 % Mean Corpuscular Volume 77.3 fL Mean Corpuscular Hemoglobin 22.2 pg Mean Corpuscular Hemoglobin Concent 28.7 g/dl RDW Standard Deviation 59.1 fL RDW Coefficient of Variation 20.8 % Platelet Count 253 K/uL Mean Platelet Volume 10.2 fL Prothrombin Time 27.7 SECONDS Prothromb Time International Ratio 2.5 Sodium Level 142 mmol/L Potassium Level 3.6 mmol/L Chloride Level 105 mmol/L Carbon Dioxide Level 34 mmol/L Anion Gap 3.0 mmol/L Blood Urea Nitrogen 14 mg/dl Creatinine 0.68 mg/dl Est Creatinine Clear Calc Drug Dose 57.0 ml/min Estimated GFR () 91.2 Estimated GFR (Non- 78.6 BUN/Creatinine Ratio 19.9 Random Glucose 150 mg/dl Calcium Level 8.3 mg/dl Magnesium Level 2.3 mg/dl Iron Level 21 mcg/dl Total Iron Binding Capacity 266 mcg/dl Transferrin 209 mg/dl Transferrin % Saturation 7 % Ferritin 50.2 ng/ml Test 11/08/16 16:24 11/08/16 17:11 Bedside Glucose 193 mg/dl 154 mg/dl Assessment and Plan 86yo female with: 1. acute/chronic diastolic CHF - clinically and radiographically improving; BUN /Cr stable. Continue IV bumex. Daily weights, labs. Continue beta brad. 2. COPD - stable, without exacerbation. 3. chronic respiratory failure with hypoxia - stable O2 sats on NC O2. Suspect due to COPD. Cannot r/o OHS contributing. Cont nebs, inhalers for COPD. VBG in am to ensure to hypercarbia. 4. question of aspiration pneumonia - remains on zosyn, day #5 of abx therapy. d/c zosyn, change to omnicef and flagyl in am to complete 10 days in total. Speech therapy has evaluated; moist mech soft diet. 5. encephalopathy - metabolic from #4? toxic from very large dose of gabapentin? (900mg TID) unsure of her baseline mental status. does she have dementia or mild cognitive impairment? Lowered gabapentin to 600mg TID yesterday. VBG in am. TSH and b12 in recent past normal. Consider head CT. 6. a. fib - coumadin, lopressor, digoxin. INR therapeutic today. Repeat INR am. 7. microcytic anemia - ferritin 50 - likely early Fe deficiency ferrous sulfate TID 8. DVT proph - coumadin. 9. T2DM - improved control with lantus/novolog. 10. aortic stenosis - noted. 11. hypothyroidism - continue synthroid 25mcg every other day. Most recent TSH was compensated. 12. HTN - controlled. d.c tele to med/surg today improving Continued [facility] stay due to: multiple IV medications needed Discharge planning: senior care facility
[2016-11-08] MEDS ORDERED: PIPERACILL/TAZOBAC IV 4.5 GM in DEXTROSE 5% 100ML IV SCH (22:00)
[2016-11-08] MEDS: METRONIDAZOLE 500 MG TAB PO SCH (22:03)
[2016-11-08] MEDS: CEFDINIR 300 MG CAP PO SCH (22:04)
[2016-11-08] MEDS: LATANOPROST 0.005% OP SOLN 2.5 ML BTL OPB SCH (22:06)
[2016-11-08] MEDS: ATORVASTATIN 20 MG TAB PO SCH (22:07)
[2016-11-08] MEDS: DIGOXIN 0.125 MG TAB PO SCH (22:07)
[2016-11-08] MEDS: SERTRALINE HCL 50 MG TAB PO SCH (22:10)
[2016-11-08] MEDS: INSULIN GLARGINE SOLOSTAR 100 UNITS/ML 3 ML PEN SC SCH (22:13)
[2016-11-09] VITALS (9 sets, daily range): BP systolic 113–160; BP diastolic 52–80; PULSE 55–76; TEMP 36.7–36.9; O2SAT 93–100
[2016-11-09] MEDS: ALBUTEROL 0.083% NEBU SOLN 3 ML VIAL INH SCH ×4 (01:43→19:22)
[2016-11-09] MEDS: INSULIN ASPART 100 UNITS/ML 3 ML PEN SC SCH ×4 (06:30→20:26)
[2016-11-09 07:20] LABS: VEN BLD GAS O2 SATURATION 80.8 %; VEN BLOOD GAS BASE EXCESS 6.8 mEq/L
[2016-11-09 07:27] LABS: INR 2.4 (0.9-1.1); PROTHROMBIN TIME (PATIENT) 26.9 SECONDS (9.0-12.0)
[2016-11-09 07:55] LABS: CALCIUM 8.5 mg/dl (8.5-10.1); CREATININE 0.49 mg/dl (0.60-1.20); POTASSIUM 4.2 mmol/L (3.5-5.1)
[2016-11-09] MEDS: METRONIDAZOLE 500 MG TAB PO SCH ×3 (08:40→20:14)
[2016-11-09] MEDS: SODIUM CHLORIDE 0.65% NA SOLN 45 ML (OCEAN) NAE SCH ×2 (08:40→20:11)
[2016-11-09] MEDS: BUMETANIDE IV SCH ×2 (08:40→17:14)
[2016-11-09] MEDS: TRIAMCINOLONE ACET 0.1% CR 15 GM TUBE EXT SCH ×3 (08:40→20:11)
[2016-11-09] MEDS: RANITIDINE HCL 150 MG TAB PO SCH ×2 (08:41→20:12)
[2016-11-09] MEDS: GUAIFENESIN 600 MG TABCR PO SCH ×2 (08:41→20:22)
[2016-11-09] MEDS: CLOPIDOGREL BISULFATE 75 MG TAB PO SCH (08:41)
[2016-11-09] MEDS: AMLODIPINE BESYLATE 5 MG TAB PO SCH (08:41)
[2016-11-09] MEDS: FERROUS SULFATE 325 MG TAB PO SCH ×3 (08:41→17:14)
[2016-11-09] MEDS: ROPINIROLE HCL 0.25 MG TAB PO SCH (08:42)
[2016-11-09] MEDS: GABAPENTIN 600 MG TAB PO SCH ×3 (08:42→20:13)
[2016-11-09] MEDS: METOPROLOL TARTRATE 25 MG TAB PO SCH ×2 (08:42→20:20)
[2016-11-09] MEDS: CEFDINIR 300 MG CAP PO SCH ×2 (08:43→20:14)
[2016-11-09] MEDS: LEVOTHYROXINE 25 MCG TAB PO SCH (08:43)
[2016-11-09] MEDS: MAGNESIUM OXIDE 400 MG TAB PO SCH ×2 (08:44→20:13)
[2016-11-09] MEDS: BUDESONIDE/FORMOTEROL FUMARATE 160/4.5 60 PUFFS/INHALER INH SCH ×2 (08:44→20:11)
[2016-11-09] MEDS: POTASSIUM CHLORIDE 20 MEQ TABCR PO SCH ×2 (08:44→20:14)
[2016-11-09] MEDS: TIOTROPIUM BROMIDE 5 PUFF/90 MCG INH INH SCH (08:45)
[2016-11-09] MEDS: WARFARIN SOD 3 MG TAB PO SCH (17:14)
[2016-11-09] MEDS: SERTRALINE HCL 50 MG TAB PO SCH (20:11)
[2016-11-09] MEDS: LATANOPROST 0.005% OP SOLN 2.5 ML BTL OPB SCH (20:11)
[2016-11-09] MEDS: ATORVASTATIN 20 MG TAB PO SCH (20:13)
[2016-11-09] MEDS: DIGOXIN 0.125 MG TAB PO SCH (20:20)
[2016-11-09] MEDS: INSULIN GLARGINE SOLOSTAR 100 UNITS/ML 3 ML PEN SC SCH (20:25)
--- NOTE | 2016-11-09 20:41 | Progress Note ---
Subjective Date of Service: Nov 09, 2016. Subjective Pt evaluation today including: conversation w/ patient, conversation w/ family (son, Hector, by phone), physical exam, chart review, lab review Pain: denies any location of pain PO Intake: fair per staff Voiding: incontinence no issues overnight pt sleeps much of the time, wakes up to eat, goes back to sleep son reports mother has had memory issues for some time and does take frequent naps was on BIPAP years ago but not in quite some time Problem List Medical Problems: (1) CHF (congestive heart failure) Status: Acute (2) CHF (congestive heart failure) Status: Acute (3) COPD (chronic obstructive pulmonary disease) Status: Acute (4) Hypoxia Status: Acute (5) Hypoxia Status: Acute (6) Pneumonia Status: Acute (7) Pulmonary edema Status: Acute (8) Respiratory failure Status: Acute Review of Systems Respiratory: No dyspnea at rest Cardiac: No chest pain Abdomen: No pain Objective Vital Signs Date Time Temp Pulse Resp B/P (MAP) Pulse Ox O2 Delivery O2 Flow Rate FiO2 11/09/16 16:00 Nasal Cannula 3.0 11/09/16 15:21 36.8 60 16 126/52 (76) 94 Nasal Cannula 3.0 11/09/16 14:11 67 16 96 Nasal Cannula 3.0 11/09/16 08:00 Nasal Cannula 3.0 11/09/16 07:45 36.7 56 20 132/60 (84) 97 Nasal Cannula 3.0 11/09/16 07:30 55 16 93 Nasal Cannula 3.0 11/09/16 01:43 62 16 96 Nasal Cannula 3.0 11/09/16 00:24 36.8 57 18 116/64 (81) 100 Nasal Cannula 2.0 11/09/16 00:00 Nasal Cannula 3.0 11/08/16 22:07 67 11/08/16 22:01 67 141/73 (95) 11/08/16 19:15 67 16 97 Nasal Cannula 3.0 Physical Exam General Appearance: no apparent distress, + obese ENT: pharynx normal Neck: + JVD Respiratory/Chest: no respiratory distress, no accessory muscle use, + rales ( faint, b/l bases) Cardiovascular: regular rate, rhythm, no gallop, + systolic murmur (2/6 RUSB) Abdomen: normal bowel sounds, non tender, soft, no organomegaly, + hernia Extremities: + pedal edema (trace, left leg), + pertinent finding (right AKA) Neurologic/Psychiatric: alert, + disoriented Skin: + pertinent finding (mild stasis changes left leg) Laboratory Results Last 24 Hours Test 11/08/16 20:23 11/09/16 07:04 11/09/16 07:05 11/09/16 07:25 Bedside Glucose 186 mg/dl 125 mg/dl Venous Blood pH 7.41 Venous Blood Partial Pressure CO2 52 mmHg Venous Blood Partial Pressure O2 50 mmHg Venous Blood HCO3 32 mmol/L Venous Blood Oxygen Saturation 80.8 % Venous Blood Base Excess 6.8 mEq/L Sodium Level 144 mmol/L Potassium Level 4.2 mmol/L Chloride Level 110 mmol/L Carbon Dioxide Level 34 mmol/L Anion Gap 0.0 mmol/L Blood Urea Nitrogen 13 mg/dl Creatinine 0.49 mg/dl Est Creatinine Clear Calc Drug Dose 79.1 ml/min Estimated GFR () 101.5 Estimated GFR (Non- 87.6 BUN/Creatinine Ratio 26.0 Random Glucose 114 mg/dl Calcium Level 8.5 mg/dl Prothrombin Time 26.9 SECONDS Prothromb Time International Ratio 2.4 Test 11/09/16 11:33 11/09/16 15:54 Bedside Glucose 184 mg/dl 128 mg/dl Assessment and Plan 86yo female with: 1. acute/chronic diastolic CHF - continues to diurese well with stable BUN & Cr. Continue IV bumex. Daily weights, labs, exams. Continue beta brad. Suspect we are nearing euvolemia. 2. COPD - stable, without exacerbation. 3. chronic respiratory failure with hypoxia - stable O2 sats on NC O2. Suspect due to COPD. Cannot r/o OHS contributing. Cont nebs, inhalers for COPD. VBG with compensated chronic resp acidosis. Doubt she would tolerate BIPAP at HS. 4. question of aspiration pneumonia - day #6 of abx; changed to omnicef and flagyl today. Complete 10 days in total. Speech therapy has evaluated; moist mech soft diet. 5. encephalopathy - metabolic from #4? toxic from very large dose of gabapentin? (900mg TID) after speaking with son today it appears she is probably at her baseline. suspect underlying dementia or mild cognitive impairment. Lowered gabapentin to 600mg TID and would leave on lower dose given her renal function & age. TSH and b12 in recent past normal. 6. a. fib - coumadin, lopressor, digoxin. INR therapeutic today. Repeat INR am. 7. microcytic anemia - ferritin 50 - likely early Fe deficiency ferrous sulfate TID 8. DVT proph - coumadin. 9. T2DM - improved control with lantus/novolog. 10. aortic stenosis - noted. 11. hypothyroidism - continue synthroid 25mcg every other day. Most recent TSH was compensated. 12. HTN - controlled. spoke with son, Hector, by phone today updated him extensively he is aware of her failing health and is accepting of such he confirmed she is a DNR, level 5 likely we are close to d/c back to SNF, likely 1-2 more days Continued [facility] stay due to: multiple IV medications needed Discharge planning: nursing home facility
[2016-11-10 01:57] VITALS: PULSE 68; O2SAT 96
[2016-11-10] MEDS: ALBUTEROL 0.083% NEBU SOLN 3 ML VIAL INH SCH ×4 (01:57→19:58)
[2016-11-10 06:51] LABS: INR 2.9 (0.9-1.1); PROTHROMBIN TIME (PATIENT) 32.7 SECONDS (9.0-12.0)
[2016-11-10 07:05] LABS: BUN/CREATININE RATIO 24.3 (10-20); CALCIUM 9.4 mg/dl (8.5-10.1); CREATININE 0.47 mg/dl (0.60-1.20); MAGNESIUM 2.4 mg/dl (1.8-2.4)
[2016-11-10 07:06] VITALS: PULSE 58; O2SAT 96
[2016-11-10 07:16] VITALS: BP 137/67; PULSE 60; TEMP 36.3; O2SAT 94
[2016-11-10] MEDS: METOPROLOL TARTRATE 25 MG TAB PO SCH ×2 (08:25→21:51)
[2016-11-10] MEDS: FERROUS SULFATE 325 MG TAB PO SCH ×3 (08:25→17:33)
[2016-11-10] MEDS: CLOPIDOGREL BISULFATE 75 MG TAB PO SCH (08:25)
[2016-11-10] MEDS: GUAIFENESIN 600 MG TABCR PO SCH ×2 (08:25→21:51)
[2016-11-10] MEDS: GABAPENTIN 600 MG TAB PO SCH ×3 (08:25→21:51)
[2016-11-10] MEDS: BUMETANIDE IV SCH ×2 (08:25→17:33)
[2016-11-10] MEDS: CEFDINIR 300 MG CAP PO SCH ×2 (08:26→21:52)
[2016-11-10] MEDS: RANITIDINE HCL 150 MG TAB PO SCH ×2 (08:26→21:52)
[2016-11-10] MEDS: ROPINIROLE HCL 0.25 MG TAB PO SCH (08:26)
[2016-11-10] MEDS: AMLODIPINE BESYLATE 5 MG TAB PO SCH (08:26)
[2016-11-10] MEDS: MAGNESIUM OXIDE 400 MG TAB PO SCH ×2 (08:26→21:51)
[2016-11-10] MEDS: SODIUM CHLORIDE 0.65% NA SOLN 45 ML (OCEAN) NAE SCH ×2 (08:27→21:34)
[2016-11-10] MEDS: TRIAMCINOLONE ACET 0.1% CR 15 GM TUBE EXT SCH ×3 (08:27→21:31)
[2016-11-10] MEDS: BUDESONIDE/FORMOTEROL FUMARATE 160/4.5 60 PUFFS/INHALER INH SCH ×2 (08:27→21:32)
[2016-11-10] MEDS: POTASSIUM CHLORIDE 20 MEQ TABCR PO SCH ×2 (08:27→21:43)
[2016-11-10] MEDS: METRONIDAZOLE 500 MG TAB PO SCH ×3 (08:27→21:42)
[2016-11-10] MEDS: INSULIN ASPART 100 UNITS/ML 3 ML PEN SC SCH ×4 (08:32→21:00)
--- NOTE | 2016-11-10 09:05 | Hospitalist Progress Note ---
Hospitalist Progress Note Date of Service Nov 10, 2016. (Anais Puckett PA-C) Subjective Pt evaluation today including: conversation w/ patient, physical exam, chart review, lab review, review of studies Pain: None PO Intake: Good Voiding: incontinence The patient was seen and examined this morning. Pt reports doing well, she is not very talkative or elaborative. She is sitting up eating lunch. During respiratory exam and asking her to take deep breaths she fell asleep. Pt states she hasn't been sleeping as much as she'd like to here. Constitutional: + fatigue, No fever, No chills, No sweats Eyes: No redness ENT: No nasal symptoms Respiratory: No cough, No shortness of breath Cardiovascular: No chest pain, No edema Abdomen: No pain, No nausea, No vomiting, No diarrhea Musculoskeletal: No joint pain, No swelling Neurologic: No weakness, No numbness/tingling Skin: No rash, No itch (Anais Puckett PA-C) Objective Vital Signs Date Time Temp Pulse Resp B/P (MAP) Pulse Ox O2 Delivery O2 Flow Rate FiO2 11/10/16 07:16 36.3 60 20 137/67 (90) 94 11/10/16 07:06 58 14 96 Nasal Cannula 3.0 11/10/16 01:57 68 14 96 Nasal Cannula 3.0 11/10/16 00:00 Nasal Cannula 3.0 11/09/16 23:38 36.9 59 20 113/54 (73) 94 Room Air 11/09/16 20:20 74 11/09/16 20:19 76 18 160/80 (106) 94 Nasal Cannula 11/09/16 20:00 Nasal Cannula 3.0 11/09/16 19:22 60 14 97 Nasal Cannula 3.0 11/09/16 16:00 Nasal Cannula 3.0 11/09/16 15:21 36.8 60 16 126/52 (76) 94 Nasal Cannula 3.0 11/09/16 14:11 67 16 96 Nasal Cannula 3.0 (Anais Puckett PA-C) Physical Exam General Appearance: WD/WN, no apparent distress, + obese Eyes: PERRL, EOMI ENT: pharynx normal, + pertinent finding (hard of hearing) Neck: supple, no JVD Respiratory/Chest: no accessory muscle use, + pertinent finding (on 2 L via NC , faint crackles at bases, no wheeze or rhonchi) Cardiovascular: regular rate, rhythm, + systolic murmur (grade II/, 2nd ICS RUSB) Abdomen: normal bowel sounds, non tender, soft, no organomegaly Extremities: non-tender, no pedal edema, + pertinent finding (+ R AKA) Neurologic/Psychiatric: alert, normal mood/affect, + disoriented Skin: normal color, warm/dry (Anais Puckett, FAHADC) Laboratory Results Last 24 Hours Test 11/09/16 11:33 11/09/16 15:54 11/09/16 20:17 11/10/16 06:11 Bedside Glucose 184 mg/dl 128 mg/dl 164 mg/dl Hemoglobin 9.8 g/dL Prothrombin Time 32.7 SECONDS Prothromb Time International Ratio 2.9 Sodium Level 143 mmol/L Potassium Level 4.0 mmol/L Chloride Level 106 mmol/L Carbon Dioxide Level 35 mmol/L Anion Gap 2.0 mmol/L Blood Urea Nitrogen 11 mg/dl Creatinine 0.47 mg/dl Est Creatinine Clear Calc Drug Dose 82.5 ml/min Estimated GFR () 102.9 Estimated GFR (Non- 88.8 BUN/Creatinine Ratio 24.3 Random Glucose 85 mg/dl Calcium Level 9.4 mg/dl Magnesium Level 2.4 mg/dl Test 11/10/16 07:30 Bedside Glucose 133 mg/dl (Anais Puckett PA-C) Assessment and Plan 86yo female with: Acute/chronic diastolic CHF Aortic stenosis HTN - continues to diurese well with stable BUN & Cr. - Continue 2.5 mg IV bumex. Daily weights- bed scale= 92.4 kg today, initial weight at time of admission was 101 kg - Cr.= 0.47, it has actually improved with diuresis, pt doesn't appear hypervolemic, but likely has more diuresis to go to obtain dry weight. - Continue beta brad. A. fib - coumadin, lopressor, digoxin. - INR therapeutic today - INR 2.9 Chronic respiratory failure with hypoxia COPD - stable O2 sats on NC O2. - Suspect due to COPD. Cannot r/o OHS contributing. - Cont nebs, inhalers for COPD. - VBG with compensated chronic resp acidosis - Doubt she would tolerate BIPAP at HS at this time. Question of aspiration pneumonia - day #7 of abx; changed to omnicef and flagyl today, for 10 day course - Speech therapy has evaluated; Continue [facility] soft diet. Encephalopathy - metabolic from aspiration pna? toxic from very large dose of gabapentin? (900mg TID) - Appears she is at baseline per family - suspect underlying dementia or mild cognitive impairment. - Lowered gabapentin to 600mg TID and would leave on lower dose given her renal function & age. - TSH and b12 in recent past normal. Microcytic anemia - ferritin 50 - likely early Fe deficiency - ferrous sulfate TID DM II - improved control with lantus/novolog. Hypothyroidism - continue Synthroid 25mcg every other day. Most recent TSH was compensated. DVT proph - coumadin CODE STATUS: DNR Disposition: From [facility], d/c likely within 1 day (Anais Puckett, PA-C) Attending Attestation: Pt seen/examined, chart reviewed, care plan d/w MERCED Puckett. I agree w/ the blevins components of her documentation. no events overnight remains pleasantly confused eating dinner during my assessment had no complaints VSS o2 sats stable on NC O2 no fever gen - obese, nad neck - difficult to assess JVD but nothing obvious mouth - MMM heart - 2-3/6 holosystolic murmur - loudest RUSB, RRR lungs - faint rales bases, no wheeze abd - obese, soft ext - right AKA; left leg w/o edema, pulses 2+ left foot skin - no rash left leg BMP stable INR 2.9 A/P: acute/chronic diastolic CHF - much improved with excellent diuresis to date and considerable weight loss. BUN/Cr stable - continue IV diuretics 1 more day; suspect we are approaching euvolemia. aspiration pneumonia - finish course of abx. INR 2.9 - stable on coumadin; INR in am. [place] UNDERWOOD MD (Melo Underwood MD)
[2016-11-10] MEDS: TIOTROPIUM BROMIDE 5 PUFF/90 MCG INH INH SCH (12:40)
[2016-11-10 14:10] VITALS: PULSE 53; O2SAT 90
[2016-11-10 15:24] VITALS: BP 129/73; PULSE 90; TEMP 37; O2SAT 91
[2016-11-10] MEDS: WARFARIN SOD 3 MG TAB PO SCH (16:36)
[2016-11-10 19:58] VITALS: PULSE 69; O2SAT 97
[2016-11-10] MEDS: LATANOPROST 0.005% OP SOLN 2.5 ML BTL OPB SCH (21:34)
[2016-11-10] MEDS: INSULIN GLARGINE SOLOSTAR 100 UNITS/ML 3 ML PEN SC SCH (21:38)
[2016-11-10] MEDS: DIGOXIN 0.125 MG TAB PO SCH (21:44)
[2016-11-10] MEDS: ATORVASTATIN 20 MG TAB PO SCH (21:50)
[2016-11-10] MEDS: SERTRALINE HCL 50 MG TAB PO SCH (21:52)
[2016-11-11] VITALS (8 sets, daily range): BP systolic 112–137; BP diastolic 52–76; PULSE 60–82; TEMP 36.6–37; O2SAT 90–98
[2016-11-11] MEDS: ALBUTEROL 0.083% NEBU SOLN 3 ML VIAL INH SCH ×4 (01:58→20:08)
[2016-11-11 06:15] LABS: BUN/CREATININE RATIO 21.4 (10-20); CALCIUM 9.3 mg/dl (8.5-10.1); CREATININE 0.6 mg/dl (0.60-1.20); POTASSIUM 4.2 mmol/L (3.5-5.1)
[2016-11-11] MEDS: RANITIDINE HCL 150 MG TAB PO SCH ×2 (07:48→21:13)
[2016-11-11] MEDS: METRONIDAZOLE 500 MG TAB PO SCH ×3 (07:48→21:14)
[2016-11-11] MEDS: BUDESONIDE/FORMOTEROL FUMARATE 160/4.5 60 PUFFS/INHALER INH SCH ×2 (07:49→21:04)
[2016-11-11] MEDS: GUAIFENESIN 600 MG TABCR PO SCH ×2 (07:50→21:13)
[2016-11-11] MEDS: TRIAMCINOLONE ACET 0.1% CR 15 GM TUBE EXT SCH ×3 (07:50→21:15)
[2016-11-11] MEDS: CLOPIDOGREL BISULFATE 75 MG TAB PO SCH (07:50)
[2016-11-11] MEDS: GABAPENTIN 600 MG TAB PO SCH ×3 (07:50→21:13)
[2016-11-11] MEDS: CEFDINIR 300 MG CAP PO SCH ×2 (07:51→21:12)
[2016-11-11] MEDS: MAGNESIUM OXIDE 400 MG TAB PO SCH ×2 (07:51→21:16)
[2016-11-11] MEDS: AMLODIPINE BESYLATE 5 MG TAB PO SCH (07:52)
[2016-11-11] MEDS: METOPROLOL TARTRATE 25 MG TAB PO SCH ×2 (07:52→21:13)
[2016-11-11] MEDS: POTASSIUM CHLORIDE 20 MEQ TABCR PO SCH ×2 (07:53→21:16)
[2016-11-11] MEDS: LEVOTHYROXINE 25 MCG TAB PO SCH (07:53)
[2016-11-11] MEDS: ROPINIROLE HCL 0.25 MG TAB PO SCH (07:54)
[2016-11-11] MEDS: FERROUS SULFATE 325 MG TAB PO SCH ×3 (08:21→16:25)
[2016-11-11 08:51] LABS: INR 2.8 (0.9-1.1); PROTHROMBIN TIME (PATIENT) 31.4 SECONDS (9.0-12.0)
[2016-11-11] MEDS: SODIUM CHLORIDE 0.65% NA SOLN 45 ML (OCEAN) NAE SCH ×2 (09:22→21:15)
[2016-11-11] MEDS: TIOTROPIUM BROMIDE 5 PUFF/90 MCG INH INH SCH (09:22)
[2016-11-11] MEDS: BUMETANIDE IV SCH ×2 (09:32→16:25)
[2016-11-11] MEDS: INSULIN ASPART 100 UNITS/ML 3 ML PEN SC SCH ×4 (09:34→21:12)
--- NOTE | 2016-11-11 12:31 | Hospitalist Progress Note ---
Hospitalist Progress Note Date of Service Nov 11, 2016. (Anais Puckett PA-C) Subjective Pt evaluation today including: conversation w/ patient, physical exam, chart review, lab review, review of studies Pain: None PO Intake: Good Voiding: no voiding problems, hamilton catheter in place The patient was seen and examined this morning. Pt reports doing well. She has no acute complaints, he breathing is good,on room air presently. She notes she normally wears 3 L at home. She denies any chest pain, shortness of breath, abdominal pain. She does not feel swollen in her leg. Discussion was held about possible discharge tomorrow, she is in agreement with this plan. Additional Comments: Constitutional: + fatigue, No fever, No chills, No sweats Eyes: No redness ENT: No nasal symptoms Respiratory: No cough, No shortness of breath Cardiovascular: No chest pain, No edema Abdomen: No pain, No nausea, No vomiting, No diarrhea Musculoskeletal: No joint pain, No swelling Neurologic: No weakness, No numbness/tingling Skin: No rash, No itch (Anais Puckett PA-C) Objective Vital Signs Date Time Temp Pulse Resp B/P (MAP) Pulse Ox O2 Delivery O2 Flow Rate FiO2 11/11/16 09:20 112/52 (72) 11/11/16 08:00 Room Air 11/11/16 07:17 37.0 76 20 117/55 (75) 90 2.0 11/11/16 07:05 81 14 91 Nasal Cannula 3.0 11/11/16 00:02 36.6 66 18 130/76 (94) 94 Room Air 11/11/16 00:00 Nasal Cannula 3.0 11/10/16 21:44 78 11/10/16 19:58 69 14 97 Nasal Cannula 3.0 11/10/16 16:00 Nasal Cannula 3.0 11/10/16 15:24 37.0 90 18 129/73 (91) 91 Nasal Cannula 3.0 11/10/16 14:10 53 14 90 Nasal Cannula 3.0 (Anais Puckett PA-C) Physical Exam Notes: General Appearance: WD/WN, no apparent distress, + obese Eyes: PERRL, EOMI ENT: pharynx normal, + pertinent finding (hard of hearing) Neck: supple, no JVD Respiratory/Chest: no accessory muscle use, + pertinent finding (on room air, no crackles, wheeze or rhonchi) Cardiovascular: regular rate, rhythm, + systolic murmur (grade II/, 2nd ICS RUSB) Abdomen: normal bowel sounds, non tender, soft, no organomegaly Extremities: non-tender, no pedal edema, + pertinent finding (+ R AKA) Neurologic/Psychiatric: alert, normal mood/affect, + disoriented to place and time, oriented to self Skin: normal color, warm/dry (Anais Puckett, FAHADC) Laboratory Results Last 24 Hours Test 11/10/16 16:05 11/10/16 19:48 11/11/16 05:27 11/11/16 07:23 Bedside Glucose 122 mg/dl 168 mg/dl 124 mg/dl Sodium Level 143 mmol/L Potassium Level 4.2 mmol/L Chloride Level 105 mmol/L Carbon Dioxide Level 35 mmol/L Anion Gap 3.0 mmol/L Blood Urea Nitrogen 13 mg/dl Creatinine 0.60 mg/dl Est Creatinine Clear Calc Drug Dose 62.7 ml/min Estimated GFR () 95.0 Estimated GFR (Non- 82.0 BUN/Creatinine Ratio 21.4 Random Glucose 129 mg/dl Calcium Level 9.3 mg/dl Test 11/11/16 08:15 11/11/16 11:18 Prothrombin Time 31.4 SECONDS Prothromb Time International Ratio 2.8 Bedside Glucose 181 mg/dl (Anais Puckett, PA-C) Assessment and Plan 86yo female with: Acute/chronic diastolic CHF Aortic stenosis HTN - continues to diurese well with stable BUN & Cr. - Continue 2.5 mg IV bumex. Daily weights- bed scale= 92.4 kg yesterday, as far as outpatient records, appears she was ~ 87 kg in May. Will continue to diurese. Its hard to say what her current weight is with inaccuracy of bed scales. Initial weight at time of admission was 101 kg - Cr.= 0.60, it has actually improved with diuresis, pt doesn't appear hypervolemic, but likely has more diuresis to go to obtain dry weight. - Continue beta brad. A. fib - coumadin, lopressor, digoxin. - INR therapeutic today - INR 2.8 Chronic respiratory failure with hypoxia COPD - stable O2 sats on NC O2, she is on room air during my visit. Pt normally wears 2-3 while at home. - Suspect due to COPD. Cannot r/o OHS contributing. - Cont nebs, inhalers for COPD. - VBG with compensated chronic resp acidosis - Doubt she would tolerate BIPAP at HS at this time. Question of aspiration pneumonia - day #8 of abx; changed to omnicef and flagyl , for 10 day course - Speech therapy has evaluated; Continue [facility] soft diet. Encephalopathy - metabolic from aspiration pna? toxic from very large dose of gabapentin? (900mg TID) - Appears she is at baseline per family - suspect underlying dementia or mild cognitive impairment. - Lowered gabapentin to 600mg TID and would leave on lower dose given her renal function & age. - TSH and b12 in recent past normal. Microcytic anemia - ferritin 50 - likely early Fe deficiency - ferrous sulfate TID DM II - improved control with lantus/novolog. Hypothyroidism - continue Synthroid 25mcg every other day. Most recent TSH was compensated. DVT proph - coumadin CODE STATUS: DNR Disposition: From [facility], d/c likely within 24 hours (Anais Puckett, PAColtonC) Attending Attestation: Pt seen/examined, chart reviewed, care plan d/w MERCED Puckett. I agree w/ the blevins components of her documentation. no events overnight remains pleasantly confused once again during my visit although the last 2 days she has been more alert/awake for me had no complaints no issues per staff VSS o2 sats stable on NC O2 no fever gen - obese, nad neck - difficult to assess JVD but nothing obvious mouth - MMM heart - 2-3/6 holosystolic murmur - loudest RUSB, RRR lungs - decreased BS bases but o/w CTA b/l abd - obese, soft ext - right AKA; left leg w/o edema, pulses 2+ left foot skin - no rash left leg BMP stable INR 2.8 A/P: acute/chronic diastolic CHF - much improved with excellent diuresis to date and considerable weight loss of about 9-10 kg since admission. She appears euvolemic today. Will stop bumex after tonight's dose and reassess BUN & Cr with BMP in am. aspiration pneumonia - finish course of abx. INR 2.8 - stable on coumadin for several days anticipate d/c back to SNF tomorrow [place] GODINEZ MD (Melo Godinez MD)
--- NOTE | 2016-11-11 13:48 | Discharge Instructions ---
Discharge Instructions Date of Service Nov 11, 2016. Admission Reason for Admission: Hypoxia, Pneumonia Discharge Discharge Diagnosis / Problem: Hypoxia, Pneumonia, CHF exacerbation Discharge Goals Goal(s): Decrease discomfort, Improve function, Increase independence, Improve disease control Activity Recommendations Activity Limitations: per Instructions/Follow-up section Lifting Limitations: no more than 10 pounds Exercise/Sports Limitations: rest today, gradually increase as tolerated Shower/Bathe: no limitations (with assistance) Driving or Machine Use: DO NOT DRIVE . Instructions / Follow-Up Instructions / Follow-Up You were admitted to [facility] with hypoxia, shortness of breath, and increased oxygen requirement and diagnosed with pneumonia and CHF exacerbation. During your stay here you were treated with intravenous diuretics, antibiotics and other supportive treatment. Your breathing improved and you were diuresed to your dry weight of 92kg. During this hospital stay approximately 10 L of fluid was removed. Medications: - You should continue taking omnicef 300 mg twice daily and flagyl 500 mg three times daily, starting tonight and then tomorrow (11/13) to complete a 10 day course. - Dosage of gabapentin has been reduced to 600 mg three times daily - Continue taking your medications as prescribed Appointments: Follow up with your Primary Care Provider at [facility] within 24-48 hours of arrival there. Specific CHF Instructions: Call your Primary Care doctor if any of the following symptoms or problems start or get worse: * Shortness of breath or difficulty breathing * Wake up at night short of breath * Chest pain * Cough * Swelling of your hands, feet, or legs * More fatigued or tired with your normal activity * Palpitations - sudden fast heart beats WEIGHT * Weigh yourself every morning after using the bathroom. * Use the same scale. * Wear the same amount of clothing. * Write your weight down on a chart. * Call your Primary Care doctor if you gain more than 2-3 pounds in 1-2 days, or if you gain more than 5 lbs in one week. MEDICATIONS * Use this discharge instruction sheet for medication instructions. * Take your medications at the time your doctor ordered. * Do not skip a dose of your medicines. * If you miss a dose of medicine, take it as soon as possible, but DO NOT DOUBLE A DOSE. * Read your medicine information when you get home. * Know all of the side effects of your medicine. If in doubt, ask your pharmacist * Call your Primary Care doctor's office if you have any side effects. * Be sure all of your doctors know what medicine and herbs you take (including cold, flu, and herbal medicine). Take the following with you to your follow-up doctor appointments: * Weight Chart * Medication List * List of questions Do not drink excessive alcohol, beer or wine. Current Hospital Diet Patient's current hospital diet: Diabetes Type 2 Diet, AHA Diet (Heart Healthy) Discharge Diet Recommended Diet: AHA Diet (Heart Healthy) Fluid Restriction: 1500 ml (6 cups) Pending Studies Studies pending at discharge: no Laboratory Results Hemoglobin A1c Test 08/16/16 04:30 Range/Units Estimated Average Glucose 174 mg/dl Hemoglobin A1c 7.7 H 4.5-5.6 % Medical Emergencies . Who to Call and When: Call 911 or go to the Emergency Room if: * If at any time you feel your situation is an emergency * You have tightness or pain in your chest that does not go away with rest or Nitroglycerin * You are very short of breath even with rest . Non-Emergent Contact Non-Emergency issues call your: Primary Care Provider, [employer] Call Non-Emergent contact if: you have a fever, temperature is above 100.5, your pain is not controlled, your pain is worsening, your pain is unusual for you, your pain is concerning you, you have any medication questions other concerns with your health. Call 911 or go directly to the Emergency Department if you experience any of the following: Chest pain, chest tightness, shortness of breath, abdominal pain , lightheadedness, dizziness, gastrointestinal bleeding, or have any other concerns regarding your health. . Past History Medical & Surgical History: (1) CHF (congestive heart failure) (2) Pneumonia (3) Hypoxia . "Provider Documentation" section prepared by Evie Puckett. . VTE Core Measure Inpt VTE Proph given/why not?: Cecile (Coumadin), Martita Mcdonald, SCD's
[2016-11-11] MEDS: WARFARIN SOD 3 MG TAB PO SCH (16:27)
[2016-11-11] MEDS: LATANOPROST 0.005% OP SOLN 2.5 ML BTL OPB SCH (21:04)
[2016-11-11] MEDS: INSULIN GLARGINE SOLOSTAR 100 UNITS/ML 3 ML PEN SC SCH (21:08)
[2016-11-11] MEDS: SERTRALINE HCL 50 MG TAB PO SCH (21:12)
[2016-11-11] MEDS: DIGOXIN 0.125 MG TAB PO SCH (21:14)
[2016-11-11] MEDS: ATORVASTATIN 20 MG TAB PO SCH (21:14)
[2016-11-12] VITALS: BP 126/68; PULSE 68; TEMP 36.6; O2SAT 94
[2016-11-12] MEDS: ALBUTEROL 0.083% NEBU SOLN 3 ML VIAL INH SCH ×3 (01:49→14:11)
[2016-11-12 01:50] VITALS: PULSE 56; O2SAT 97
[2016-11-12 07:04] VITALS: PULSE 56; O2SAT 97
[2016-11-12 07:17] LABS: BUN/CREATININE RATIO 21.2 (10-20); CALCIUM 9.3 mg/dl (8.5-10.1); CREATININE 0.51 mg/dl (0.60-1.20); POTASSIUM 3.9 mmol/L (3.5-5.1)
[2016-11-12 08:09] VITALS: BP 145/76; PULSE 69; TEMP 37; O2SAT 96
[2016-11-12] MEDS: TIOTROPIUM BROMIDE 5 PUFF/90 MCG INH INH SCH (08:19)
[2016-11-12] MEDS: SODIUM CHLORIDE 0.65% NA SOLN 45 ML (OCEAN) NAE SCH (08:19)
[2016-11-12] MEDS: ROPINIROLE HCL 0.25 MG TAB PO SCH (08:19)
[2016-11-12] MEDS: CLOPIDOGREL BISULFATE 75 MG TAB PO SCH (08:19)
[2016-11-12] MEDS: RANITIDINE HCL 150 MG TAB PO SCH (08:19)
[2016-11-12] MEDS: CEFDINIR 300 MG CAP PO SCH (08:19)
[2016-11-12] MEDS: GUAIFENESIN 600 MG TABCR PO SCH (08:20)
[2016-11-12] MEDS: FERROUS SULFATE 325 MG TAB PO SCH ×2 (08:20→11:38)
[2016-11-12] MEDS: AMLODIPINE BESYLATE 5 MG TAB PO SCH (08:20)
[2016-11-12] MEDS: GABAPENTIN 600 MG TAB PO SCH ×2 (08:20→13:11)
[2016-11-12] MEDS: METOPROLOL TARTRATE 25 MG TAB PO SCH (08:20)
[2016-11-12] MEDS: METRONIDAZOLE 500 MG TAB PO SCH ×2 (08:21→13:11)
[2016-11-12] MEDS: MAGNESIUM OXIDE 400 MG TAB PO SCH (08:21)
[2016-11-12] MEDS: BUDESONIDE/FORMOTEROL FUMARATE 160/4.5 60 PUFFS/INHALER INH SCH (08:21)
[2016-11-12] MEDS: POTASSIUM CHLORIDE 20 MEQ TABCR PO SCH (08:21)
[2016-11-12] MEDS: INSULIN ASPART 100 UNITS/ML 3 ML PEN SC SCH ×2 (08:26→12:14)
[2016-11-12] MEDS: TRIAMCINOLONE ACET 0.1% CR 15 GM TUBE EXT SCH ×2 (09:07→13:11)
[2016-11-12 09:51] VITALS: O2SAT 94
[2016-11-12] MEDS ORDERED: GABA-113 PO (10:22)
[2016-11-12] MEDS ORDERED: CEFD300C3 PO (10:22)
[2016-11-12] MEDS ORDERED: MTR500 PO (10:22)
[2016-11-12] MEDS ORDERED: FRRS300 PO (10:22)
--- NOTE | 2016-11-12 13:09 | Discharge Summary ---
Discharge Summary Date of Service Nov 12, 2016. (Anais Puckett PA-C) Discharge Summary Admission Date: Nov 04, 2016 at 17:12 Discharge Date: Nov 12, 2016 Discharge Disposition: [facility] facility Principal Diagnosis: Acute/chronic diastolic CHF, pneumonia Problems/Secondary Diagnoses: Aspiration pneumonia Acute/chronic diastolic CHF Aortic stenosis HTN Atrial fibrillation on coumadin Chronic respiratory failure with hypoxia COPD Encephalopathy - metabolic from aspiration pna Microcytic anemia DM II Hypothyroidism Immunizations: Have You Had Influenza Vaccine: No Influenza Vaccine Date: Jun 01, 2011 History of Tetanus Vaccine?: utd History of Pneumococcal: Yes Pneumococcal Date: Sep 02, 2012 History of Hepatitis B Vaccine: No Procedures: CHEST ONE VIEW PORTABLE HISTORY: 86 years-old Female EVALUATE RESPIRATORY DISTRESS.DYSPNEA COMPARISON: Chest radiograph 09/07/2016 TECHNIQUE: Portable upright AP view of the chest FINDINGS: Cardiac silhouette is moderately enlarged. Single lead left pectoral pacer is noted with lead intact. There is atherosclerosis of the aorta. No pneumothorax identified. Small left and trace right pleural effusions are noted with persistent bibasilar hazy opacities left greater than right, pulmonary vascular congestion with background interstitial coarsening. Pattern of disease appears similar to comparison study 09/07/2016. The bones are moderately demineralized and appear grossly intact. IMPRESSION: 1. Cardiomegaly with mild pulmonary edema pattern, similar from comparison 09/07/2016. 2. Small left and trace right pleural effusions are again seen with left greater than right bibasilar opacities suggesting atelectasis with pneumonia also in the differential. Correlate these findings with CT of the chest scheduled for later today. The above report was generated using voice recognition software. It may contain grammatical, syntax or spelling errors. Electronically signed by: Richard Sorenson M.D. 11/04/2016 1:08 PM Dictated Date/Time: 11/04/2016 1:05 PM The status of this report is Signed. CT OF THE CHEST WITH IV CONTRAST CLINICAL HISTORY: Respiratory distress. Dyspnea. Abnormal chest radiograph. COMPARISON STUDY: Chest CT June 06, 2016 and chest radiograph November 04, 2016. TECHNIQUE: Following IV administration of 120 mL of Optiray-320, helical axial images of the chest were obtained. Sagittal and coronal reconstructions were viewed as well as maximal intensity projections on an independent 3-D workstation. A dose lowering technique was utilized adhering to the principles of ALARA. CT DOSE: 1057.54 mGy.cm FINDINGS: The heart is moderately enlarged. A left subclavian pacer is in place. There is no pericardial effusion. There are multiple mildly enlarged mediastinal and bilateral hilar lymph nodes which have developed since CT of June 06, 2016. Index precarinal lymph node measures 1.6 cm in short axis diameter. There is bowing of the posterior wall of the trachea. Secretions within the airways are noted. There is no pneumothorax. Small left and trace right pleural effusions are present. Lungs are suboptimally assessed due to respiratory motion. There is no cavitation. Interlobular septal thickening indicates pulmonary edema. Scattered airspace opacities are noted as well as mosaic attenuation. Left lower lobe opacity is noted with volume loss. Bony thorax and upper abdomen are unremarkable. There is extensive atherosclerotic plaque of the aorta and branch vessels. IMPRESSION: 1. Interlobular septal thickening consistent with pulmonary edema with small left and trace right pleural effusions. Scattered groundglass opacities within lungs could reflect alveolar edema or a superimposed infectious process. 2. Narrowing of the airway with bowing of the posterior wall of the trachea which may reflect tracheomalacia. Secretions throughout the airways with bronchial wall thickening. 3. Mild mediastinal and bilateral hilar lymphadenopathy which is new since CT of June 06, 2016. This is nonspecific but may be related to pulmonary edema. 4. Moderate cardiomegaly. Electronically signed by: Sajan Rust M.D. 11/04/2016 4:48 PM Dictated Date/Time: 11/04/2016 4:34 PM The status of this report is Signed. CHEST 2 VIEWS ROUTINE CLINICAL HISTORY: Respiratory difficulty. Dyspnea. COMPARISON STUDY: Chest radiograph and chest CT November 04, 2016. FINDINGS: A single lead left subclavian pacemaker is in place. There is no pneumothorax. Small bilateral pleural effusions persist, left larger than right. Diffuse interstitial thickening is suggestive of pulmonary edema. Multifocal bilateral airspace opacities have increased. IMPRESSION: 1. Diffuse interstitial thickening consistent with pulmonary edema. 2. Interval increase in bilateral airspace opacities which could reflect alveolar edema or a superimposed infectious process. 3. Small bilateral pleural effusions, left larger than right. Electronically signed by: Sajan Rust M.D. 11/07/2016 10:06 AM Dictated Date/Time: 11/07/2016 10:04 AM The status of this report is Signed. Consultations: None (Anais Puckett, ANGEL) Medication Reconciliation New Medications: Cefdinir (Cefdinir) 300 Mg Cap 300 MG PO BID for 2 Days, #3 CAP Ferrous Sulfate (Ferrous Sulfate) 325 Mg Tab 325 MG PO TIDM for 30 Days, #90 TAB Metronidazole (Metronidazole) 500 Mg Tab 500 MG PO TID for 2 Days, #6 TAB Changed Medications: Gabapentin (Neurontin) 300 Mg Cap 600 MG PO TID for 30 Days, #180 CAP (Changed from: 900 MG) Continued Medications: Acetaminophen Tab (Tylenol) 325 Mg Tab 650 MG PO Q6 PRN for Pain or Fever, TAB FOR TEMP >101F. NOT TO EXCEED 3GM/24HRS Albuterol Sulf (Proventil 0.083% 2.5MG/3ML) 2.5 Mg/3 Ml Nebu 2.5 MG INH Q6H, #1 BOX 2 Refills Alendronate Sodium (Binosto) 70 Mg Tab 70 MG PO WK EVERY THURSDAY Amlodipine (Norvasc) 5 Mg Tab 5 MG PO DAILY, TAB Atorvastatin (Lipitor) 40 Mg Tab 40 MG PO QPM, TAB Benzonatate (Benzonatate) 100 Mg Cap 100 MG PO TID, #30 CAP 0 Refills Bepotastine Besilate (Bepreve) 1.5 % Christiano 1 DROP OPB BID Bisacodyl (Bisac-Evac) 10 Mg Sup 1 SUPP TX UD PRN for NO BM X4 DAYS Budesonide/Formoterol Fumarate (Symbicort 160/4.5 Inhaler ) Aero 2 PUFFS INH BID, INHALER Bumetanide (Bumetanide) 1 Mg Tab 2.5 MG PO BID Calcium Carbonate-Vitamin D (Oscal 500/200 D-3) 1 Tab Tab 1 TAB PO BID Cholecalciferol (Vitamin D3) 2,000 Unit Tab 2000 UNITS PO DAILY for 90 Days, TAB 3 Refills Clopidogrel (Plavix) 75 Mg Tab 75 MG PO DAILY, TAB Dextrose (Diabetic Use) (Insta-Glucose) 77.4 % Gel 1 APPLN MT UD PRN for HYPOGLYCEMIA PROTOCOL Digoxin (Digoxin) 0.125 Mg Tab 0.125 MG PO QPM Fentanyl (Fentanyl) 25 Mcg Tdsy 25 MCG TD [id number] Glucagon (Glucagon Emergency Kit) 1 Mg Kit 1 MG IM UD PRN for HYPOGLYCEMIA Guaifenesin (Guaifenesin) 100 Mg/5 Ml Syp 10 ML PO TID [id number] Guaifenesin Ext Rel (Mucinex Ext Rel) 600 Mg Tabcr 1200 MG PO Q12 for 7 Days, #14 0 Refills Home O2 Therapy (Oxygen) Gas 3 LITER NA CONTINOUS Insulin Aspart (Novolog Penfill) 100 Unit/Ml Inj 4 UNITS SC AC Insulin Aspart (Novolog) 100 Units/Ml Inj 100 SC DIRECTED inject per sliding scale 0-150= 0 units, 151-200 = 6 units, 201-250= 8 units, 251-300 = 10 units, 301-350 =12 units, 351-400 = 14 units, 401-450 = 16 units greater than 451 call Insulin Glargine (Lantus Solostar) 100 Unit/Ml Inj 40 UNITS SC QPM for 30 Days, #1 BTL 0 Refills Ipratropium-Albuterol (Duoneb) 3 Ml Nebu 3 ML INH Q4H PRN for sob/wheeze/cough, #1 BOX 2 Refills Latanoprost (Xalatan 0.005% Oph Anna) 0.005 % Anna 1 DROPS OPB HS, #2.5 ML 3 Refills Levothyroxine Sodium (Levothyroxine Sodium) 25 Mcg Tab 25 MCG PO Q2D for 30 Days, TAB 5 Refills Magnesium Hydroxide (Milk Of Magnesia) 30 Ml Susp 30 ML PO UD PRN for NO BM X 9 SHIFTS, ML Magnesium Oxide (Mag-Ox) 400 Mg Tab 400 MG PO BID, TAB Metoprolol Tartrate (Lopressor) (Lopressor) 25 Mg Tab 25 MG PO BID, TAB Multivitamin (Multivitamin) Tab 1 TAB PO DAILY, TAB Potassium Chloride (Klor-Con M20) 20 Meq Tabcr 20 MEQ PO BID Probiotic Product (Probiotic) 1 Cap Cap 1 CAP PO BID Ranitidine (Zantac) 150 Mg Tab 150 MG PO BID, TAB Ropinirole (Requip) 0.5 Mg Tab 0.5 MG PO DAILY, TAB Saline (Saline Nasal [place]) 0.65 % Spr 2 SPRAYS ADELA BID Sertraline (Zoloft) 50 Mg Tab 50 MG PO HS, TAB Sodium Phosphate/Biphosphate (Fleet Enema) Emy 1 EA TX UD PRN for NO RESULTS FROM SUPPOSITORY , BTL Tiotropium [place] (Spiriva Handihaler) 5 Puff/90 Mcg Aerp 1 PUFF PO DAILY, #1 INHALER 2 Refills Triamcinolone Acetonide (Topic (Triderm) 0.1 % Cre TOP TID Warfarin Sod (Jantoven) 3 Mg Tab 3 MG PO 5XWK TAKES SUN,MON,WED,FRI,SAT Warfarin Sod (Jantoven) 4 Mg Tab 4 MG PO 2XWK TAKES TUES AND THURS [Liquid Protein] () 30 ML PO BID [id number] Discontinued Medications: Amoxicillin (Amoxil) 500 Mg Cap 500 MG PO Q8, #21 CAP Doxycycline Monohydrate (Monodox) 100 Mg Cap 100 MG PO BID, CAP Discharge Exam The patient was seen and examined this morning. Pt reports doing well, she has no acute complaints. Breathing is fine on 2-3 L O2 via NC which is her baseline. She denies any acute complaints. She anticipates going home today. Review of Systems: Constitutional: + fatigue, No fever, No chills, No sweats Eyes: No eye pain, No redness ENT: No trouble swallowing Respiratory: No cough, No sputum, No wheezing, No shortness of breath Cardiovascular: No chest pain, No edema Abdomen: No pain, No nausea, No vomiting, No diarrhea Musculoskeletal: No joint pain, No swelling, No calf pain, No problem reported (R AKA) Neurologic: No paralysis, No numbness/tingling Endocrine: + fatigue Integumentary: No rash, No itch Physical Exam: General Appearance: WD/WN, no apparent distress Eyes: PERRL, EOMI ENT: pharynx normal, + pertinent finding (hard of hearing) Neck: supple, no JVD Respiratory/Chest: lungs clear, normal breath sounds, no respiratory distress, no accessory muscle use Cardiovascular: regular rate, rhythm, + systolic murmur (grade II/, 2nd ICS RUSB) Abdomen / GI: normal bowel sounds, non tender, soft Extremities: no calf tenderness, no pedal edema, + pertinent finding (R AKA) Neurologic/Psychiatric: + disoriented ( + disoriented to place and time, oriented to self) Skin: normal color, warm/dry (Anais Puckett, ANGEL) Hospital Course History of Present Illness Source: clinic records, hospital records Ms. Powell is an 86 y/o female with PMHx of Chronic Respiratory Failure 2/2 COPD on Chronic 3 L, Persistent Atrial Fibrillation, HTN, Chronic Diastolic CHF , Diabetes, and Hypothyroidism who presents to the ED from [facility] for dyspnea and hypoxia x 1 week. HPI obtained from discussion with ED provider and hospital records as patient is lethargic. She opens eyes easily to verbal stimuli, will shake her head yes/no but will not participate in discussion, and quickly falls back asleep. Per ED provider, patient reports experiencing a cough throughout the week but no further details given. She had a CXR yesterday that showed a LLL infiltrate, small pleural effusions, and nodular changes and was started on Doxycycline. Upon exam, patient is resting flat in bed without respiratory distress and currently oxygenating adequately on 3 L O2 which is baseline. Physical Exam Vital Signs Date Time Temp Pulse Resp B/P (MAP) Pulse Ox O2 Delivery O2 Flow Rate FiO2 11/04/16 16:40 69 18 107/62 91 Nasal Cannula 3.0 11/04/16 16:04 71 11/04/16 14:50 79 20 151/70 97 Nasal Cannula 3.0 11/04/16 13:18 93 Nasal Cannula 3.0 11/04/16 13:18 93 Nasal Cannula 3.0 11/04/16 12:14 92 Room Air 11/04/16 12:14 36.9 92 18 126/58 95 Room Air 11/04/16 12:14 92 Nasal Cannula 3.0 11/04/16 11:54 102 General Appearance: WD/WN, no apparent distress, + obese Head: normocephalic, atraumatic Eyes: sclerae normal Neck: supple, no JVD, trachea midline Respiratory/Chest: lungs clear (patient is asleep and limited exam ), no respiratory distress, no accessory muscle use Cardiovascular: regular rate, rhythm, no gallop, + systolic murmur (IV/) Abdomen/GI: normal bowel sounds, non tender, soft Extremities/Musculoskelatal: + pertinent finding (1+ pitting edema to knee of LLE; RLE BKA) Neurologic/Psych: + pertinent finding (sleeping; awakes to verbal stimuli but quickly falls back to sleep) Skin: normal color, warm/dry Hospital Course: 86yo female with Acute/chronic diastolic CHF Aortic stenosis HTN - continues to diurese well with stable BUN & Cr. - Continue 2.5 mg IV bumex. Daily weights- bed scale= 92.4 kg yesterday, as far as outpatient records, appears she was ~ 87 kg in May. Will continue to diurese. Its hard to say what her current weight is with inaccuracy of bed scales. Initial weight at time of admission was 101 kg - Cr.= 0.51, pt doesn't appear hypervolemic, breathing back to baseline. - Continue beta brad A. fib - coumadin, lopressor, digoxin - INR therapeutic today - INR 2.8 Chronic respiratory failure with hypoxia COPD - stable O2 sats on NC O2, she is on room air during my visit. Pt normally wears 2-3 while at home. - Suspect due to COPD. Cannot r/o OHS contributing. - Cont nebs, inhalers for COPD. - VBG with compensated chronic resp acidosis - Doubt she would tolerate BIPAP at HS at this time. Question of aspiration pneumonia - day #8 of abx; changed to omnicef and flagyl , for 10 day course - Speech therapy has evaluated; Continue mech soft diet. Encephalopathy - metabolic from aspiration pna? toxic from very large dose of gabapentin? (900mg TID) - Appears she is at baseline per family - suspect underlying dementia or mild cognitive impairment. - Lowered gabapentin to 600mg TID and would leave on lower dose given her renal function & age. - TSH and b12 in recent past normal. Microcytic anemia - ferritin 50 - likely early Fe deficiency - ferrous sulfate TID DM II - improved control with lantus/novolog. Hypothyroidism - continue Synthroid 25mcg every other day. Most recent TSH was compensated. DVT proph - coumadin CODE STATUS: DNR Disposition: From [facility], d/c today Total Time Spent: Greater than 30 minutes This includes examination of the patient, discharge planning, medication reconciliation, and communication with other providers. (Anais Puckett, FAHADC) PA Physician Supervision Note: I interviewed and examined the patient. Discussed with Anais Puckett PAC and agree with findings and plan as documented in the note. Any exceptions or clarifications are listed here: None Patient was seen in her room she is in stable condition she does not want to go because she likes the food better here, those were her words Vital signs are stable, occasional hypertension as tolerated Heart is regular with a systolic murmur lungs are clear with fair air movement Acute diastolic heart failure has resolved continue oral Bumex Possible aspiration pneumonia will continue antibiotic course as outpatient, patient is a high risk for readmission close surveillance the longterm would be undertaken including a low-salt diet daily weights and observation for signs and symptoms of heart failure Documented By: Jake Ray (Jake Ray M.D.) Discharge Instructions Please refer to the electronic Patient Visit Report (Discharge Instructions) for additional information. (Anais Puckett PA-C) Follow-Up Follow up with your Primary Care Provider at [facility] within 24-48 hours of arrival there. (Anais Puckett PA-C)
[2016-11-12 13:42] VITALS: BP 145/76; PULSE 69; TEMP 37; O2SAT 94
== END 2016-11-12 15:07 | DRG 177 ==
LOC: EDBD 11:43 → C.EDC 11:44 → C.2T 17:12 → ENRESERV 17:29 → C.MS2W 11-08 17:05
PROVIDERS: ADMIT Hospitalist; ATTEND Internal Medicine
DX: J69.0 Pneumonitis due to inhalation of food and vomit (principal); G93.41 Metabolic encephalopathy; J96.21 Acute and chronic respiratory failure with hypoxia; I50.33 Acute on chronic diastolic (congestive) heart failure; I13.0 Hypertensive heart and chronic kidney disease with heart failure and stage 1 through stage 4 chronic kidney disease, or unspecified chronic kidney disease; I48.1 Persistent atrial fibrillation; L03.116 Cellulitis of left lower limb; J44.9 Chronic obstructive pulmonary disease, unspecified; N18.2 Chronic kidney disease, stage 2 (mild); I35.0 Nonrheumatic aortic (valve) stenosis; E11.22 Type 2 diabetes mellitus with diabetic chronic kidney disease; E78.5 Hyperlipidemia, unspecified; E03.9 Hypothyroidism, unspecified; D50.9 Iron deficiency anemia, unspecified; E11.65 Type 2 diabetes mellitus with hyperglycemia; Z79.01 Long term (current) use of anticoagulants; Z79.02 Long term (current) use of antithrombotics/antiplatelets; Z79.4 Long term (current) use of insulin; Z79.899 Other long term (current) drug therapy; Z99.81 Dependence on supplemental oxygen; Z89.611 Acquired absence of right leg above knee; Z66 Do not resuscitate; R91.8 Other nonspecific abnormal finding of lung field

== ENCOUNTER → 2016-11-04 | Outpatient (CLI) | payer OTHER ==
[2016-11-04 10:36] LABS: BLOOD UREA NITROGEN 22 mg/dl (7-18); BUN/CREATININE RATIO 32.5 (10-20); CALCIUM 8.5 mg/dl (8.5-10.1); CARBON DIOXIDE 39 mmol/L (21-32); CHLORIDE 100 mmol/L (98-107); CREATININE 0.69 mg/dl (0.60-1.20); GLUCOSE 142 mg/dl (70-99); SODIUM 140 mmol/L (136-145)
[2016-11-04 11:10] LABS: HEMATOCRIT 31.5 % (37-47); MEAN CELL VOLUME 78.6 fL (80-100); MEAN CORPUSCULAR HEMOGLOBIN 22.4 pg (25-34); MEAN CORPUSCULAR HGB CONC 28.6 g/dl (32-36); MEAN PLATELET VOLUME 10.5 fL (7.4-10.4); PLATELET COUNT 242 K/uL (130-400); RED BLOOD COUNT 4.01 M/uL (4.2-5.4); WHITE BLOOD COUNT 8.68 K/uL (4.8-10.8)
[2016-11-04 11:13] LABS: ANISOCYTOSIS PRESENT; BASO % 0.3 %; BASO ABS # 0.03 K/uL (0-0.2); COMPLETE YES; EOS % 4.7 %; HYPOCHROMIA PRESENT; IG% 0.2 %; LYMPH % 15.8 %; LYMPH ABS # 1.37 K/uL (1.2-3.4); MONO % 10.3 %; NEUT % 68.7 %
== END ==
LOC: C.LABUPBEA 09:14
PROVIDERS: ATTEND Nurse Practitioner Family
DX: R91.8 Other nonspecific abnormal finding of lung field (principal)

== ENCOUNTER → 2016-11-13 | Outpatient (CLI) | payer OTHER ==
[~2016-11-13] MED LIST changes: +BMX1 PO; -BUME0.5T3 PO; +CEFD300C3 PO; -CMD4 PO; +DRGTP25 TD; +FRRS300 PO; +MCRK20 PO; +MISCCAP80 PO; +MTR500 PO; -POTA-74 PO; -PRD10 PO; +TRIA0.1C2 TOP; +WARF3TAB6 PO; +WARF4TAB8 PO; +ZNTT/150 PO
[2016-11-13 10:28] LABS: PROTHROMBIN TIME (PATIENT) 99.4 SECONDS (9.0-12.0)
[2016-11-13 10:29] LABS: INR > 8.0 (0.9-1.1)
== END ==
LOC: C.LABUPBEA 09:31
PROVIDERS: ATTEND Nurse Practitioner Family
DX: I48.91 Unspecified atrial fibrillation (principal)

== ENCOUNTER → 2016-11-14 | Outpatient (CLI) | payer OTHER ==
[2016-11-14 09:36] LABS: BASO % 0.4 %; BASO ABS # 0.04 K/uL (0-0.2); EOS % 4.3 %; HEMATOCRIT 35.1 % (37-47); IG% 0.3 %; LYMPH % 13.7 %; LYMPH ABS # 1.32 K/uL (1.2-3.4); MEAN CELL VOLUME 78.5 fL (80-100); MEAN CORPUSCULAR HGB CONC 29.3 g/dl (32-36); MEAN PLATELET VOLUME 10.6 fL (7.4-10.4); NEUT % 70.3 %; PLATELET COUNT 260 K/uL (130-400); RED BLOOD COUNT 4.47 M/uL (4.2-5.4); WHITE BLOOD COUNT 9.66 K/uL (4.8-10.8)
[2016-11-14 09:48] LABS: PROTHROMBIN TIME (PATIENT) 22.5 SECONDS (9.0-12.0)
[2016-11-14 10:11] LABS: ANISOCYTOSIS PRESENT; COMPLETE YES; HYPOCHROMIA PRESENT; POIKILOCYTOSIS PRESENT
== END | disposition home or self-care (01) ==
LOC: C.LABUPBEA 09:20
PROVIDERS: ATTEND Nurse Practitioner Family
DX: D64.9 Anemia, unspecified (principal); I48.91 Unspecified atrial fibrillation

== ENCOUNTER → 2016-11-20 | Outpatient (CLI) | payer OTHER ==
[2016-11-20 09:36] LABS: BLOOD UREA NITROGEN 22 mg/dl (7-18); BUN/CREATININE RATIO 34.7 (10-20); CALCIUM 9.1 mg/dl (8.5-10.1); CARBON DIOXIDE 36 mmol/L (21-32); CHLORIDE 99 mmol/L (98-107); CREATININE 0.62 mg/dl (0.60-1.20); GLUCOSE 184 mg/dl (70-99); POTASSIUM 3.8 mmol/L (3.5-5.1); SODIUM 139 mmol/L (136-145)
== END ==
LOC: C.LABUPBEA 08:32
PROVIDERS: ATTEND Nurse Practitioner Family
DX: Z76.89 Persons encountering health services in other specified circumstances (principal)

== ENCOUNTER → 2017-01-21 | Outpatient (CLI) | payer OTHER ==
[2017-01-21 09:13] LABS: CHOLESTEROL/HDL RATIO 2.2
[2017-01-21 09:27] LABS: ESTIMATED AVERAGE GLUCOSE 143 mg/dl; HA1C FLAG Normal (Normal)
== END ==
LOC: C.LABUPBEA 08:22
PROVIDERS: ATTEND Nurse Practitioner Family
DX: E11.9 Type 2 diabetes mellitus without complications (principal); E78.2 Mixed hyperlipidemia

== ENCOUNTER → 2017-02-04 | Outpatient (CLI) | payer OTHER ==
[2017-02-04 08:26] LABS: BASO % 0.3 %; BASO ABS # 0.03 K/uL (0-0.2); COMPLETE YES; EOS % 2.1 %; HEMATOCRIT 45.8 % (37-47); IG% 0.3 %; LYMPH % 12.9 %; LYMPH ABS # 1.53 K/uL (1.2-3.4); MEAN CELL VOLUME 91.6 fL (80-100); MEAN CORPUSCULAR HGB CONC 30.6 g/dl (32-36); MEAN PLATELET VOLUME 11.5 fL (7.4-10.4); MONO % 9.4 %; PLATELET COUNT 152 K/uL (130-400); WHITE BLOOD COUNT 11.88 K/uL (4.8-10.8)
[2017-02-04 08:33] LABS: BLOOD UREA NITROGEN 26 mg/dl (7-18); BUN/CREATININE RATIO 36.1 (10-20); CALCIUM 9.4 mg/dl (8.5-10.1); CARBON DIOXIDE 38 mmol/L (21-32); CHLORIDE 105 mmol/L (98-107); CREATININE 0.72 mg/dl (0.60-1.20); GLUCOSE 91 mg/dl (70-99); POTASSIUM 3.5 mmol/L (3.5-5.1); SODIUM 145 mmol/L (136-145)
[2017-02-04 09:16] LABS: URINE APPEARANCE CLOUDY (CLEAR); URINE BILIRUBIN NEG (NEG); URINE COLOR YELLOW; URINE EPITHELIAL CELL AUTO 0-5 /lpf (0-5); URINE NITRITE NEG (NEG); URINE PH 6.5 (4.5-7.5); URINE SPECIFIC GRAVITY 1.016 (1.000-1.030); UROBILINOGEN NEG (NEG)
[2017-02-04 09:19] LABS: MANUAL MICROSCOPIC REQUIRED? NO; REVIEW REQ? YES
== END ==
LOC: C.LABUPBEA 08:14
PROVIDERS: ATTEND Nurse Practitioner Family
DX: R53.83 Other fatigue (principal)

== ENCOUNTER 2017-02-11 08:29 | Inpatient (IN) | payer OTHER ==
[2017-02-11] VITALS (8 sets, daily range): BP systolic 94–145; BP diastolic 55–76; PULSE 81–97; TEMP 36.4–37.4; O2SAT 94–100; Ht 144.8 cm; Wt 85.7 kg
[~2017-02-11] VITALS: Ht 144.8 cm; Wt 85.7 kg
[~2017-02-11 08:29] MED LIST changes: -ACET650S10 PR; -APIX1TAB PO; -LACT1TAB26 PO; -ONDA4TAB10 SL; -UMEC1AER PO
[2017-02-11] MEDS ORDERED: ACETAMINOPHEN 325 MG TAB PO ONE (08:45)
[2017-02-11] MEDS ORDERED: UMEC1AER PO (08:52)
--- NOTE | 2017-02-11 08:56 | DIAGNOSTIC IMAGING REPORT ---
CHEST ONE VIEW PORTABLE HISTORY: 87 years-old Female Sepsis acute sepsis with altered mental status COMPARISON: Chest radiograph 11/07/2016, chest CT 11/04/2016 TECHNIQUE: Portable AP view of the chest FINDINGS: Cardiac silhouette is mildly enlarged. Atherosclerosis of the aorta. There is no pneumothorax, pleural effusion or large focal airspace consolidation. Mild pulmonary vascular congestion without overt pulmonary edema. Subtle patchy subsegmental left basilar opacities noted. Linear subsegmental opacities of the lateral left midlung suggest atelectasis/scarring. Unchanged single lead left pectoral pacer. Bones of the chest are grossly intact. IMPRESSION: 1. Cardiomegaly and pulmonary vascular congestion without overt pulmonary edema. 2. Subtle patchy subsegmental left basilar opacities suggest atelectasis or pneumonitis. The above report was generated using voice recognition software. It may contain grammatical, syntax or spelling errors. Electronically signed by: Richard Sorenson M.D. 02/11/2017 8:55 AM Dictated Date/Time: 02/11/2017 8:53 AM
[2017-02-11] MEDS ORDERED: LACT1TAB26 PO (08:57)
[2017-02-11] MEDS ORDERED: APIX1TAB PO (08:59)
[2017-02-11] MEDS ORDERED: GUAI100S16 PO (09:04)
[2017-02-11] MEDS ORDERED: ACET650S10 PR (09:07)
[2017-02-11] MEDS ORDERED: ONDA4TAB10 SL (09:10)
[2017-02-11] MEDS ORDERED: ALBUT/IPRATROP 3MG/0.5MG NEB 3 ML VIAL INH STA (09:42)
[2017-02-11 09:44] LABS: BASO % 0.3 %; BASO ABS # 0.05 K/uL (0-0.2); COMPLETE YES; EOS % 0.7 %; HEMATOCRIT 58.4 % (37-47); IG% 0.4 %; LYMPH % 14.6 %; LYMPH ABS # 2.28 K/uL (1.2-3.4); MEAN CELL VOLUME 92.6 fL (80-100); MEAN CORPUSCULAR HEMOGLOBIN 28.4 pg (25-34); MEAN CORPUSCULAR HGB CONC 30.7 g/dl (32-36); MONO % 11.2 %; NEUT % 72.8 %; PLATELET COUNT 181 K/uL (130-400); RED BLOOD COUNT 6.31 M/uL (4.2-5.4)
[2017-02-11] MEDS ORDERED: VANCOMYCIN INJ 1,000 MG in SODIUM CHLORIDE 0.9% 250ML 250 ML IV STA (09:49)
[2017-02-11] MEDS ORDERED: SODIUM CHLORIDE 0.9% 500ML 500 ML IV STA (09:49)
[2017-02-11] MEDS ORDERED: DOXYCYCLINE IV 100 MG in DEXTROSE 5% 100ML 100 ML IV STA (09:49)
[2017-02-11] MEDS ORDERED: CEFEPIME IV 1,000 MG in DEXTROSE 5% 100ML 100 ML IV STA (09:49)
[2017-02-11 09:57] LABS: URINE APPEARANCE CLOUDY (CLEAR); URINE BILIRUBIN NEG (NEG); URINE COLOR YELLOW; URINE EPITHELIAL CELL AUTO 20-30 /lpf (0-5); URINE NITRITE NEG (NEG); URINE SPECIFIC GRAVITY 1.018 (1.000-1.030); UROBILINOGEN NEG (NEG); ZZURINE CULT IF INDIC CATH YES
[2017-02-11 10:00] LABS: INR 1.2 (0.9-1.1)
[2017-02-11 10:09] LABS: MANUAL MICROSCOPIC REQUIRED? NO; REVIEW REQ? NO; SULFASALICYLIC ACID POS (NEG)
--- NOTE | 2017-02-11 10:19 | EMERGENCY ROOM VISIT NOTE ---
History First contact with patient: 08:35 Chief Complaint: ALTERED MENTAL STATUS Stated Complaint: AMS Nursing Triage Summary: patient to ED via ALS from [facility] for change in mental status, hypoxia, and abnormal labs. Per EMS patient was hypoxic upon discontinuation of cpap in AM, patient responsive to name, non-verbal at time of triage, lab work done feb 10 demonstrated dehydration. tylenol suppository given [facility] History of Present Illness The patient is a 87 year old female who presents to the Emergency Room with complaints of altered mental status. When the patient came off CPAP this morning at [facility] she was found to have hypoxia. She was nonverbal upon arrival to the emergency department. She is found to be dehydrated by laboratory work yesterday. The patient is running a fever here. She has no complaints. Review of Systems See HPI for pertinent positives & negatives. A total of 10 systems reviewed and were otherwise negative. Past Medical/Surgical History Medical Problems: (1) Abdominal pain (2) ATRIAL FIBRILLATION (3) CELLULITIS OF LEG (4) CHRONIC KIDNEY DISEASE, STAGE II (MILD) (5) Chronic obstructive lung disease (6) Colonoscopy (7) Diabetes (8) Heart Disease (9) HYPERLIPIDEMIA NEC/NOS (10) Hypertension (11) HYPERTENSION NOS (12) Hypoxia (13) METHICILLIN RESISTANT STAPHYLOCOCCUS AUREUS ELSEWHERE/NOS (14) PERIPH VASCULAR DIS NOS (15) pna, UTI, hypernatremia (16) Recurrent pneumonia Family History Unobtainable due to patient's condition Social History Smoking Status: Unknown if Ever Smoked Alcohol Use: none Drug Use: none Marital Status: Housing Status: shelter Occupation Status: retired Current/Historical Medications Scheduled Acetaminophen (Tylenol), 60 MG MA Q6H Albuterol Sulf (Proventil 0.083% 2.5MG/3ML), 2.5 MG INH Q6H Alendronate Sodium (Binosto), 70 MG PO WK Amlodipine (Norvasc), 5 MG PO DAILY Apixaban (Eliquis), 2.5 MG PO BID Atorvastatin (Lipitor), 40 MG PO QPM Benzonatate (Benzonatate), 100 MG PO TID Bepotastine Besilate (Bepreve), 1 DROP OPB BID Budesonide/Formoterol Fumarate (Symbicort 160/4.5 Inhaler ), 2 PUFFS INH BID Bumetanide (Bumetanide), 2.5 MG PO BID Calcium Carbonate-Vitamin D (Oscal 500/200 D-3), 1 TAB PO BID Cefdinir (Cefdinir), 300 MG PO BID Cholecalciferol (Vitamin D3), 2,000 UNITS PO DAILY Digoxin (Digoxin), 0.125 MG PO QPM Fentanyl (Fentanyl), 25 MCG TD [id number] Ferrous Sulfate (Ferrous Sulfate), 325 MG PO TIDM Gabapentin (Neurontin), 600 MG PO TID Guaifenesin (Guaifenesin), 10 ML PO TID Guaifenesin Ext Rel (Mucinex Ext Rel), 1,200 MG PO Q12 Home O2 Therapy (Oxygen), 3 LITER NA CONTINOUS Insulin Aspart (Novolog Penfill), 4 UNITS SC AC Insulin Aspart (Novolog), 100 SC DIRECTED Insulin Glargine (Lantus Solostar), 40 UNITS SC QPM Lactobacillus (Lactobacillus), 1 TAB PO BID Latanoprost (Xalatan 0.005% Oph Anna), 1 DROPS OPB HS Levothyroxine Sodium (Levothyroxine Sodium), 25 MCG PO Q2D Magnesium Oxide (Mag-Ox), 400 MG PO BID Metoprolol Tartrate (Lopressor) (Lopressor), 25 MG PO BID Multivitamin (Multivitamin), 1 TAB PO DAILY Ondasetron Odt (Zofran Odt), 4 MG SL Q8 Potassium Chloride (Klor-Con M20), 20 MEQ PO BID Ranitidine (Zantac), 150 MG PO BID Ropinirole (Requip), 0.5 MG PO DAILY Saline (Saline Nasal [place]), 2 SPRAYS [place]LA BID Sertraline (Zoloft), 50 MG PO HS Umeclidinium-Vilanterol (Anoro Ellipta 62.5-25 Mcg/INH), 1 INHA PO QAM [Liquid Protein], 30 ML PO BID Scheduled PRN Acetaminophen Tab (Tylenol), 650 MG PO Q6 PRN for Pain or Fever Bisacodyl (Bisac-Evac), 1 SUPP MA UD PRN for NO BM X4 DAYS Dextrose (Diabetic Use) (Insta-Glucose), 1 APPLN MT UD PRN for HYPOGLYCEMIA PROTOCOL Glucagon (Glucagon Emergency Kit), 1 MG IM UD PRN for HYPOGLYCEMIA Magnesium Hydroxide (Milk Of Magnesia), 30 ML PO UD PRN for NO BM X 9 SHIFTS Sodium Phosphate/Biphosphate (Fleet Enema), 1 EA MA UD PRN for NO RESULTS FROM SUPPOSITORY Physical Exam Vital Signs Date Time Temp Pulse Resp B/P (MAP) Pulse Ox O2 Delivery O2 Flow Rate FiO2 02/11/17 12:27 100 02/11/17 12:25 100 Mask 4.0 02/11/17 12:08 37.5 101 20 136/62 100 Oxymask 4.0 02/11/17 10:57 102 20 135/67 100 Nebulizer 8.0 02/11/17 10:03 92 14 100 Diffusion Mask 4.0 02/11/17 09:32 85 24 128/87 99 Oxymask 4.0 02/11/17 08:40 93 02/11/17 08:40 38.1 92 15 131/79 93 Room Air 02/11/17 08:38 94 Physical Exam GENERAL: Patient is a ill-appearing well-nourished female, sonorous on exam HEAD: Normocephalic atraumatic EYES: Ocular movements intact pupils equal and react to light OROPHARYNX mucous membranes are moist no exudates present no erythema or edema present NECK: Supple no nuchal rigidity CHEST: Good equal expansion LUNGS: Clear and equal to auscultation CARDIAC: high pitched II/ systolic murmur ABDOMEN: Soft nontender no guarding BACK: No CVA tenderness EXTREMITIES: No pain upon palpation normal muscle strength in all groups no clubbing cyanosis or edema NEURO: Patient is following commands is answering questions appropriately. Alert and oriented x3 Cranial Nerves 2-12 grossly intact Medical Decision & Procedures ER Provider Diagnostic Interpretation: CHEST ONE VIEW PORTABLE HISTORY: 87 years-old Female Sepsis acute sepsis with altered mental status COMPARISON: Chest radiograph 11/07/2016, chest CT 11/04/2016 TECHNIQUE: Portable AP view of the chest FINDINGS: Cardiac silhouette is mildly enlarged. Atherosclerosis of the aorta. There is no pneumothorax, pleural effusion or large focal airspace consolidation. Mild pulmonary vascular congestion without overt pulmonary edema. Subtle patchy subsegmental left basilar opacities noted. Linear subsegmental opacities of the lateral left midlung suggest atelectasis/scarring. Unchanged single lead left pectoral pacer. Bones of the chest are grossly intact. IMPRESSION: 1. Cardiomegaly and pulmonary vascular congestion without overt pulmonary edema. 2. Subtle patchy subsegmental left basilar opacities suggest atelectasis or pneumonitis. The above report was generated using voice recognition software. It may contain grammatical, syntax or spelling errors. Electronically signed by: Richard Sorenson M.D. 02/11/2017 8:55 AM Dictated Date/Time: 02/11/2017 8:53 AM The status of this report is Signed. Draft = Not yet reviewed or approved by Radiologist. Signed = Reviewed and approved by Radiologist. <AttendingPhy></AttendingPhy> <FamilyPhy>Hearthside, Ruby</FamilyPhy> < PrimaryPhy>[place], Ruby</PrimaryPhy> <UnitNumber>[id number]</UnitNumber> < VisitNumber>[id number]</VisitNumber> <PatientName>ASTON PRETTY</ PatientName> <DateOfBirth>1930</DateOfBirth> <Location>[facility]</Location> < ServiceDate>02/11/17</ServiceDate> <MNE>[facility]INDI</MNE Laboratory Results Test 02/11/17 09:04 02/11/17 09:20 02/11/17 09:30 Prothrombin Time 13.0 SECONDS (9.0-12.0) Prothromb Time International Ratio 1.2 (0.9-1.1) Activated Partial Thromboplast Time 25.7 SECONDS (21.0-31.0) Partial Thromboplastin Ratio 1.0 Total Bilirubin 0.5 mg/dl (0.2-1) Aspartate Amino Transf (AST/SGOT) 30 U/L (15-37) Alanine Aminotransferase (ALT/SGPT) 27 U/L (12-78) Alkaline Phosphatase 180 U/L (45-117) Total Creatine Kinase 48 U/L (26-192) Total Protein 8.0 gm/dl (6.4-8.2) Albumin 3.1 gm/dl (3.4-5.0) Globulin 4.9 gm/dl (2.5-4.0) Albumin/Globulin Ratio 0.6 (0.9-2) Procalcitonin 0.17 ng/ml (0-0.5) Thyroid Stimulating Hormone (TSH) 1.280 uIu/ml (0.300-4.500) Bedside Lactic Acid Venous 1.29 mmol/L (0.90-1.70) Urine Color YELLOW Urine Appearance CLOUDY (CLEAR) Urine pH 8.0 (4.5-7.5) Urine Specific [place] 1.018 (1.000-1.030) Urine Protein 2+ (NEG) Urine Glucose (UA) NEG (NEG) Urine Ketones NEG (NEG) Urine Occult Blood 2+ (NEG) Urine Nitrite NEG (NEG) Urine Bilirubin NEG (NEG) Urine Urobilinogen NEG (NEG) Urine Leukocyte Esterase MODERATE (NEG) Urine WBC (Auto) >30 /hpf (0-5) Urine RBC (Auto) 5-10 /hpf (0-4) Urine Hyaline Casts (Auto) 10-30 /lpf (0-5) Urine Epithelial Cells (Auto) 20-30 /lpf (0-5) Urine Bacteria (Auto) NEG (NEG) Date/Time Source Procedure Growth Status 02/11/17 09:30 Urine,Catheterized Urine Culture - Final Proteus Mirabilis Complete Medications Administered Medications (Trade) Dose Ordered Sig/Tariq Route Start Time Stop Time Status Last Admin Dose Admin Albuterol/ Ipratropium (Duoneb) 12 ml ONE STAT INH 02/11/17 09:42 02/11/17 09:44 DC 02/11/17 10:03 12 ML Sodium Chloride 500 ml @ 999 mls/hr Q31M STAT IV 02/11/17 09:49 02/11/17 10:19 DC 02/11/17 09:49 999 MLS/HR Cefepime HCl 1000 mg/Dextrose 111 ml @ 200 mls/hr NOW STAT IV 02/11/17 09:49 02/11/17 10:22 DC 02/11/17 10:21 200 MLS/HR Doxycycline Hyclate 100 mg/ Dextrose 110 ml @ 50 mls/hr NOW STAT IV 02/11/17 09:49 02/11/17 12:00 DC 02/11/17 10:22 50 MLS/HR Vancomycin HCl 1000 mg/Sodium Chloride 270 ml @ 125 mls/hr NOW STAT IV 02/11/17 09:49 02/11/17 11:58 DC 02/11/17 11:10 125 MLS/HR Sodium Chloride 1,000 ml @ 999 mls/hr Q1H1M STAT IV 02/11/17 10:21 02/11/17 11:21 DC 02/11/17 11:04 999 MLS/HR Acetaminophen 100 ml @ 400 mls/hr NOW STAT IV 02/11/17 11:18 02/11/17 11:32 DC 02/11/17 11:30 400 MLS/HR Medical Decision This is an 87-year-old female who presents to the emergency department with altered mental status. The patient is febrile upon arrival to emergency department does have a large white blood cell count. Lactic acid was obtained which was normal. Patient does appear to have urinary tract infection and possible pneumonia on chest x-ray. She was pancultured and started on antibiotics including cefepime doxycycline due to allergies and vancomycin. I did discuss the case with the hospitalist service who agreed to admit the patient. Patient was given normal saline bolus in the emergency department Impression Primary Impression: Altered mental status Additional Impression: Pneumonia Departure Information Referrals Jane Victoria (PCP) Patient Instructions My [facility] Problem Qualifiers Primary Impression: Altered mental status Altered mental status type: unspecified Qualified Codes: R41.82 - Altered mental status, unspecified Additional Impression: Pneumonia Pneumonia type: due to unspecified organism Laterality: unspecified laterality Lung location: unspecified part of lung Qualified Codes: J18.9 - Pneumonia, unspecified organism
[2017-02-11 10:21] LABS: BUN/CREATININE RATIO 50.8 (10-20); CALCIUM 10.8 mg/dl (8.5-10.1); CREATININE 1.19 mg/dl (0.60-1.20); POTASSIUM 3.8 mmol/L (3.5-5.1)
[2017-02-11] MEDS ORDERED: SODIUM CHLORIDE 0.9% 1000ML 1,000 ML IV STA (10:21)
[2017-02-11 10:25] LABS: ALB/GLOB RATIO 0.6 (0.9-2); CKMB/CK RATIO 2.7 (0-3.0)
[2017-02-11] MEDS ORDERED: ACETAMINOPHEN IV 100 ML IV STA (11:18)
[2017-02-11] MEDS ORDERED: CONSULT PHARMACY STA (12:34)
[2017-02-11] MEDS ORDERED: POLYETHYLENE (MIRALAX) 17 GM PACK PO PRN (12:45)
[2017-02-11] MEDS ORDERED: MAGNESIUM HYDROXIDE SUSP 30 ML UDC PO PRN (12:45)
[2017-02-11] MEDS ORDERED: CEFEPIME IV 2,000 MG in SYRINGE 7.5 ML IV SCH (12:45)
[2017-02-11] MEDS ORDERED: ALUMINUM/MAGNESIUM/SIMETH (MAALOX MAX) 30 ML UDC PO PRN (12:45)
[2017-02-11] MEDS ORDERED: VANCOMYCIN INJ 0 MG in SODIUM CHLORIDE 0.9% 500ML 500 ML IV SCH (12:45)
[2017-02-11] MEDS ORDERED: ZOLPIDEM TARTRATE 5 MG TAB PO PRN (12:45)
[2017-02-11] MEDS ORDERED: ONDANSETRON INJ 2 MG/ML 2 ML VIAL IV PRN (12:45)
[2017-02-11] MEDS ORDERED: VANCOMYCIN CONSULT ACTIVE PRN (13:30)
[2017-02-11] MEDS ORDERED: PNEUMOCOCCAL POLYSACCHARIDES 25 MCG/0.5 ML VIAL/SYR IM. ONE (13:45)
[2017-02-11] MEDS ORDERED: PNEUMOCOCCAL ADMINISTRATION CHARGE ONE (13:45)
[2017-02-11] MEDS ORDERED: INFLUENZA VACCINE HIGH DOSE 65+ 0.5 ML SYR IM. ONE (13:45)
[2017-02-11] MEDS ORDERED: INFLUENZA ADMINISTRATION CHARGE ONE ×2 (13:45→14:45)
[2017-02-11] MEDS ORDERED: GABAPENTIN 600 MG TAB PO SCH (14:00)
--- NOTE | 2017-02-11 14:12 | HISTORY & PHYSICAL EXAMINATION ---
DATE OF ADMISSION: 02/11/2017 This is a level 3 inpatient admission, 35 minutes. CHIEF COMPLAINT: Mental status changes, possible sepsis and UTI. HISTORY OF PRESENT ILLNESS: The patient is an 87-year-old white female with a significant past medical history of chronic respiratory failure secondary to COPD on chronic O2 3 liter per minute, persistent atrial fibrillation, hypertension, chronic diastolic CHF, diabetic, hypothyroidism, coming to the hospital Emergency Department because of the above chief complaint. This medical information was obtained from ED physicians because the patient has altered mental status. Per report, patient is a resident in the [facility]. She came off CPAP machine this morning and was found to have hypoxic. She was nonverbal upon arriving to the Emergency Room. She was found to have dehydration with severe hypernatremia and was found to have fever up to 38.1. The information was limited. In the ED the patient also found to have leukocytosis, UTI and pneumonia. IV fluid started. Antibiotic was given. When I interviewed with her she was able to open eyes and speak single words, make no sense, which is improved compared to what I was report from the ED physicians. She was obtunded upon arriving to the Emergency Room. REVIEW OF SYSTEMS: Not able to obtain. ALLERGIES: ALLERGY TO RICHARD INHIBITORS, ASPIRIN, ATENOLOL, ____, CIPRO, CODEINE, FLUTICASONE, FUROSEMIDE, HCTZ, IBUPROFEN, LISINOPRIL, MEPERIDINE, NIACINAMIDE, PENICILLIN, QUINOLONE, ____, SALMETEROL. PAST MEDICAL HISTORY: Include AFib, cellulitis, CKD stage II, COPD, chronic respiratory failure, diabetic, dyslipidemia, hypertension, peripheral vascular disease, recurrent pneumonia and right lower extremity AKA. FAMILY HISTORY: Noncontributory. SOCIAL HISTORY: Never smoked. Denied alcohol abuse disorder. Denied illicit drug abuse. The patient is , was a long-term resident, is retired. MEDICATIONS AT HOME: Include Tylenol 60 mg per rectal q. 6 hour, Proventil 2.5 mg inhaled q. 6 hour, alendronate 70 mg p.o. q. weekly, Eliquis 2.5 mg p.o. b.i.d., Lipitor 40 mg p.o. q.p.m., benzonatate 100 mg p.o. t.i.d., Bepreve 1 drop OPB b.i.d., Symbicort 160/4.5 inhale 2 puff inhaled b.i.d., Bumex 2.5 mg p.o. b.i.d., Os-Dylon 500/200 1 tab p.o. b.i.d., Cefdinir 300 mg p.o. b.i.d., vitamin D3 2000 international units p.o. daily, digoxin 0.125 mg p.o. q.p.m., fentanyl patch 25 mcg topical use q. 72 hours, ferrous sulfate 325 mg p.o. t.i.d., gabapentin 600 mg p.o. t.i.d., guaifenesin 10 mL p.o. t.i.d., insulin aspart 4 units subQ a.c. and at bedtime, insulin Glargine 40 units subQ q.p.m., Xalatan 0.005% one drop OPB at bedtime, levothyroxine 25 mcg p.o. every other day, mag oxide 400 mg p.o. b.i.d., Lopressor 25 mg p.o. b.i.d., multiple vitamin 1 tab p.o. daily, Zofran 4 mg sublingual q. 8 hour, potassium chloride 20 mEq p.o. b.i.d., ranitidine 150 mg p.o. b.i.d., Requip 0.5 mg p.o. daily, saline nasal spray 2 sprays b.i.d., Zoloft 50 mg p.o. at bedtime, Anoro Ellipta 62.5/25 mcg per inhaler 1 inhaler q.a.m., liquid protein 30 mL p.o. b.i.d. Medicine as needed include Tylenol 650 mg p.o. q. 6 p.r.n. for pain or fever, bisacodyl 1 suppository per rectal use as directed p.r.n. for constipation, glucagon 1 mg IM use as directed p.r.n. for hypoglycemia, milk of magnesia 30 mL p.o. use as directed p.r.n. for constipation, Fleet enema p.r.n. for constipation. PHYSICAL EXAMINATION: VITAL SIGNS: Temperature is 38.1, pulse 94, respiratory rate 15, blood pressure 131/79, pulse ox was 93% in room air. GENERAL: The patient is ill appearing but ____. She is able to open eyes and make a single words, no sense, not able to have conversation, therefore information is limited. HEAD, EYES, EARS, NOSE, AND THROAT: Normocephalic. EYES: Pupils equal, round responds to light. MOUTH: Dry mucous membrane. NECK: Supple. No rigidity. CHEST: Equal expansion. LUNGS: Decreased breathing sounds. Coarse rhonchi. No wheezing. HEART: High pitched murmur 3/6 systolic murmur, regular rhythm, S1, S2. ABDOMEN: Obese. No guarding. Bilateral CVA was nontender. EXTREMITIES: Right lower extremity above knee amputation. Left lower extremity no swelling. Homans sign was negative. Calf was nontender. NEUROLOGICAL EVALUATION: The patient was not able to answer questions, she has no facial droop but she was not able to cooperate in physical exam. IMAGING STUDIES: Chest x-ray in the Emergency Room shows cardiomegaly and pulmonary vascular congestion. There was subtle patchy subsegmental left basilar opacities suggestive atelectasis or pneumonitis. LABORATORY STUDIES: WBC 15, hemoglobin 17, platelet 181. Neutrophil was 72.8%. PT/INR was 13/1.2. Sodium 157, potassium 3.8, BUN 60, creatinine 1.19. Calcium 10.8, alkaline phosphate 180, troponin 0.239. Procalcitonin 0.17. Lactic acid 1.29. UA shows 2+ occult blood, moderate leukocyte esterase. I did not see EKG was done in the Emergency Room. ASSESSMENT AND PLAN: An 87-year-old white female with the conditions seen below. 1. Acute metabolic encephalopathy associated with mental status changes likely secondary to sepsis and pneumonia and urinary tract infection. 2. Possible sepsis from urinary tract infection or pneumonia. 3. Obvious urinary tract infection. 4. Possible pneumonia. 5. Possible acute on chronic respiratory failure from pneumonia. 6. Severe hypernatremia. 7. Elevated troponin likely because of dehydration. 8. History of hypertension. 9. History of AFib on Eliquis for stroke prevention. 10. Dyslipidemia. 11. Chronic pain. 12. Diabetic. 13. Hypothyroidism. 14. History of congestive heart failure. 15. History of gastroesophageal reflux disease. Like I mentioned in the above, the patient has mental status changes likely metabolic encephalopathy secondary to infectious process which is evidenced by fever, leukocytosis, source of infection in the urine or in the lung associated with severe hypernatremia. Will admit to the tele monitor floor. Cardiac monitoring. Antibiotic with vancomycin and cefepime. Follow up blood culture and urine culture, may need repeat chest x-ray, give nebulizer treatment, will give half normal saline for the hypernatremia. We will follow up BMP more closely, has ordered tomorrow morning and 1600 BMP to follow up sodium levels and adjust IV fluid. Check cardiac enzyme troponin x1 set more. Continue home medications for diabetic, hypothyroidism, hypertension, CHF. Will check TSH, hemoglobin A1c, add sliding scales. Because the patient is n.p.o. I will cut Lantus to 2/3 of home dose, GI prophylaxis is covered. DVT prophylaxis is covered. I called to patient's son, who is the power of banking attorney, updated the patient's conditions and care plan. He agreed and we discussed the patient is do not resuscitation.
[2017-02-11] MEDS ORDERED: ALBUT/IPRATROP 3MG/0.5MG NEB 3 ML VIAL INH PRN (14:15)
[2017-02-11] MEDS ORDERED: CEFEPIME CONSULT ACTIVE PRN ×2 (14:45)
[2017-02-11] MEDS ORDERED: INFLUENZA VIRUS QUAD VACCINE 0.5 ML SYR IM. ONE (14:45)
--- NOTE | 2017-02-11 15:21 | Pharmacy Progress Note ---
Pharmacy Abx Initial Consult Date of Service Feb 11, 2017. Pharmacy Dosing Scope Date of Consult: 02/11/17 Consultation requested by: Dr. Aaron Pharmacy is consulted to initiate Vancomycin and Cefepime IV dosing therapy, order appropriate labs and adjust drug dose/frequency. Subjective The patient is a 87 year old female admitted on Feb 11, 2017 at 12:40. Objective Height (Feet): 4 Height (Inches): 9.00 Weight (Kilograms): 93.000 Vital Signs (Past 12Hrs) Vital Signs Past 12 Hours Date Time Temp Pulse Resp B/P (MAP) Pulse Ox O2 Delivery O2 Flow Rate FiO2 02/11/17 13:27 97 18 141/83 99 Oxymask 4.0 02/11/17 12:48 99 20 112/74 99 Oxymask 4.0 02/11/17 12:48 102 02/11/17 12:27 100 02/11/17 12:25 100 Mask 4.0 02/11/17 12:08 37.5 101 20 136/62 100 Oxymask 4.0 02/11/17 10:57 102 20 135/67 100 Nebulizer 8.0 02/11/17 10:03 92 14 100 Diffusion Mask 4.0 02/11/17 09:32 85 24 128/87 99 Oxymask 4.0 02/11/17 08:40 93 02/11/17 08:40 38.1 92 15 131/79 93 Room Air 02/11/17 08:38 94 Lab Results (24Hrs) Laboratory Tests (24 Hours) Test 02/11/17 09:04 02/11/17 12:56 White Blood Count 15.60 K/uL (4.8-10.8) H Red Blood Count 6.31 M/uL (4.2-5.4) H Hemoglobin 17.9 g/dL (12.0-16.0) H Hematocrit 58.4 % (37-47) H Mean Corpuscular Volume 92.6 fL (80-100) Mean Corpuscular Hemoglobin 28.4 pg (25-34) Mean Corpuscular Hemoglobin Concent 30.7 g/dl (32-36) L Platelet Count 181 K/uL (130-400) Mean Platelet Volume 12.0 fL (7.4-10.4) H Neutrophils (%) (Auto) 72.8 % Lymphocytes (%) (Auto) 14.6 % Monocytes (%) (Auto) 11.2 % Eosinophils (%) (Auto) 0.7 % Basophils (%) (Auto) 0.3 % Neutrophils # (Auto) 11.36 K/uL (1.4-6.5) H Lymphocytes # (Auto) 2.28 K/uL (1.2-3.4) Monocytes # (Auto) 1.74 K/uL (0.11-0.59) H Eosinophils # (Auto) 0.11 K/uL (0-0.5) Basophils # (Auto) 0.05 K/uL (0-0.2) Procalcitonin 0.17 ng/ml (0-0.5) Total Creatine Kinase 48 U/L (26-192) Lactic Acid Level 1.8 mmol/L (0.4-2.0) Micro Results Date/Time Source Procedure Growth Status 02/11/17 09:16 Blood Blood Culture Pending Received 02/11/17 09:04 Blood Blood Culture Pending Received 02/11/17 09:30 Urine,Catheterized Urine Culture Pending Received Risk Factors for Resistance * Resident in a assisted or extended-care facility * Hospitalization for 48 hours or more within the past 90 days * Antimicrobial use within the last 90 days Assessment & Plan Assessment 87 year old female admitted for change in mental status with possible UTI and pneumonia. Reported PMH of CHF, DM, CKD Stage II, COPD with chronic respiratory failure, recurrent pneumonia and cellulitis. Pt received the following medications in the ER: * Vanco 1 gm IV * Cefepime 1gm IV * Doxycycline 1 gm IV Urine and blood cultures pending. Nasal swab ordered. Baseline Scr is around 0.6 mg/dL...Scr today=1.2. Pharmacy is consulted to dose Vancomycin and Cefepime Vancomycin * Pt is at risk for drug accumulation due to obesity. Therefore an early trough level will be ordered. * Goal trough level for pneumonia 15-20 mcg/mL * Pt will be dosed at 13mg/kg * Scr is expected to trend down toward baseline. Dosing may need adjusted at that time. Cefepime * Originally ordered for 2 gm IV q 8 hours, however dose will be adjusted for crcl 30-60. Plan Vancomycin IV * Vanco 1.25gm iv q 24 hours * Trough level ordered for 02/13 @1530 Cefepime * 2 gm IV q 12 hours Pharmacy will continue to follow and will adjust dose/frequency as necessary. Thank you.
[2017-02-11] MEDS ORDERED: HydrALAZINE HCL 20 MG/ML VIAL IV. PRN (15:45)
[2017-02-11 16:43] LABS: BLOOD UREA NITROGEN 60 mg/dl (7-18); BUN/CREATININE RATIO 47.7 (10-20); CALCIUM 10.3 mg/dl (8.5-10.1); CARBON DIOXIDE 33 mmol/L (21-32); CHLORIDE 116 mmol/L (98-107); CREATININE 1.25 mg/dl (0.60-1.20); GLUCOSE 165 mg/dl (70-99); POTASSIUM 4.1 mmol/L (3.5-5.1); SODIUM 154 mmol/L (136-145)
[2017-02-11] MEDS: VANCOMYCIN INJ 1,250 MG in SODIUM CHLORIDE 0.9% 250ML 250 ML IV SCH (16:50)
[2017-02-11] MEDS ORDERED: BUMETANIDE 1 MG TAB PO SCH (17:00)
[2017-02-11] MEDS ORDERED: BUMETANIDE IV 1 MG in SYRINGE 0 ML IV SCH (17:00)
--- NOTE | 2017-02-11 17:03 | Progress Note ---
Progress Note Date of Service Feb 11, 2017. Progress Note minimal elevated tn in second set , likely from dehydration and acute kidney injury and or pneumonia has ordered 3 rd set of tn, continue ivf 045% NSS, because of feeling patient is dehydrated, and vol depleted, hold Bumex,
[2017-02-11] MEDS: SODIUM CHLORIDE 0.45% 1000ML 1,000 ML IV SCH ×2 (17:05→22:22)
[2017-02-11] MEDS: INSULIN ASPART 100 UNITS/ML 3 ML PEN SC SCH ×2 (17:19→20:28)
[2017-02-11] MEDS: CEFEPIME IV 2,000 MG in SYRINGE 7.5 ML IV SCH (17:48)
[2017-02-11] MEDS: ALBUT/IPRATROP 3MG/0.5MG NEB 3 ML VIAL INH SCH (19:23)
[2017-02-11] MEDS: BUDESONIDE/FORMOTEROL FUMARATE 160/4.5 60 PUFFS/INHALER INH SCH (20:25)
[2017-02-11] MEDS: LATANOPROST 0.005% OP SOLN 2.5 ML BTL OPB SCH (20:26)
[2017-02-11] MEDS: INSULIN GLARGINE SOLOSTAR 100 UNITS/ML 3 ML PEN SC SCH (20:28)
[2017-02-11] MEDS ORDERED: SERTRALINE HCL 50 MG TAB PO SCH (21:00)
[2017-02-11] MEDS ORDERED: HEPARIN SOD 5000 UNIT/0.5 ML CARP SQ SCH (21:00)
[2017-02-11] MEDS ORDERED: GUAIFENESIN 600 MG TABCR PO SCH (21:00)
[2017-02-11] MEDS: METOPROLOL TARTRATE 1 MG/ML VIAL IV. SCH (21:42)
[2017-02-11] MEDS: ACETAMINOPHEN IV 100 ML IV PRN (22:24)
[2017-02-12] VITALS (15 sets, daily range): BP systolic 118–158; BP diastolic 55–76; PULSE 80–89; TEMP 36.2–37; O2SAT 95–100
[2017-02-12] MEDS: METOPROLOL TARTRATE 1 MG/ML VIAL IV. SCH ×2 (05:52→14:15)
[2017-02-12] MEDS: CEFEPIME IV 2,000 MG in SYRINGE 7.5 ML IV SCH ×2 (05:53→18:35)
[2017-02-12] MEDS: SODIUM CHLORIDE 0.45% 1000ML 1,000 ML IV SCH ×2 (06:46→15:13)
[2017-02-12] MEDS: CHECK FENTANYL PATCH PLACEMENT SCH ×3 (07:17→23:32)
[2017-02-12] MEDS: ALBUT/IPRATROP 3MG/0.5MG NEB 3 ML VIAL INH SCH ×4 (07:29→20:00)
[2017-02-12] MEDS ORDERED: LEVOTHYROXINE SODIUM INJ 12.5 MCG in SYRINGE 0 ML IV SCH (09:00)
[2017-02-12] MEDS: AMLODIPINE BESYLATE 5 MG TAB PO SCH (09:06)
[2017-02-12] MEDS: BUDESONIDE/FORMOTEROL FUMARATE 160/4.5 60 PUFFS/INHALER INH SCH ×2 (09:06→20:35)
--- NOTE | 2017-02-12 09:08 | Hospitalist Progress Note ---
Hospitalist Progress Note Date of Service Feb 12, 2017. Subjective Pt evaluation today including: conversation w/ patient, physical exam, chart review, lab review, review of studies, review of inpatient medication list Patient seen and evaluated. Notified this morning that patient was in NSR with PVCs and had progressively longer durations of PVCs/Ventricular rhythm. EKG with question of dig toxicity. Will obtain urgent dig level. Digoxin and BB on hold. 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 Patient is easily awaken by verbal cues but non-verbal at baseline. Shakes her head no to chest pain but was rubbing her head and shook yes to a headache. She has maintained rates in the 80s without bradycardia or tachycardia. Vital signs are maintained. Awaiting repeat labs for today. Trops elevating. Additional Comments: ROS largely deferred due to non-verbal. Intermittently answers with non-verbal cues. Shook her head no to chest pain but yes to headache. Medications Current Inpatient Medications Medications (Trade) Dose Ordered Sig/Tariq Route Start Time Stop Time Status Last Admin Dose Admin Al Hydrox/Mg Hydrox/Simethicone (Maalox Max Susp) 15 ml Q4H PRN PO 02/11/17 12:45 03/13/17 12:44 Magnesium Hydroxide (Milk Of Magnesia Susp) 30 ml Q12H PRN PO 02/11/17 12:45 03/13/17 12:44 Zolpidem Tartrate (Ambien Tab) 5 mg HSZ PRN PO 02/11/17 12:45 03/13/17 12:44 Ondansetron HCl (Zofran Inj) 4 mg Q6H PRN IV 02/11/17 12:45 03/13/17 12:44 Polyethylene (Miralax Powder Packet) 17 gm DAILY PRN PO 02/11/17 12:45 03/13/17 12:44 Acetaminophen 100 ml @ 400 mls/hr Q8H PRN IV 02/11/17 12:45 03/13/17 12:44 02/12/17 14:22 400 MLS/HR Insulin Aspart (novoLOG ASPART) SLIDING SCALE G... ACHS SC 02/11/17 16:30 03/13/17 16:29 02/12/17 13:25 1 UNITS Amlodipine Besylate (Norvasc Tab) 5 mg DAILY PO 02/12/17 09:00 03/14/17 08:59 02/12/17 09:06 5 MG Apixaban (Eliquis Tab) 2.5 mg BID PO 02/11/17 21:00 03/13/17 20:59 Future Hold Atorvastatin Calcium (Lipitor Tab) 40 mg QPM PO 02/11/17 21:00 03/13/17 20:59 Future Hold Budesonide/ Formoterol Fumarate (Symbicort 160/ 4.5 Inh) 2 puffs BID INH 02/11/17 21:00 03/13/17 20:59 02/12/17 09:06 2 PUFFS Bumetanide (Bumex Tab) 2.5 mg BID17 PO 02/11/17 17:00 03/13/17 16:59 Future Hold Digoxin (Lanoxin Tab) 0.125 mg DAILY@1600 PO 02/11/17 16:00 03/13/17 15:59 Future hold Fentanyl (Duragesic Patch) 25 mcg Q3D@2000 TD 02/13/17 20:00 02/27/17 19:59 Gabapentin (Neurontin Tab) 600 mg TID PO 02/11/17 14:00 03/13/17 13:59 Future Hold Guaifenesin (Mucinex Contr Rel Tab) 1,200 mg Q12 PO 02/11/17 21:00 03/13/17 20:59 Future Hold Insulin Glargine (Lantus Solostar Pen) 28 units QPM SC 02/11/17 21:00 03/13/17 20:59 02/11/17 20:28 28 UNITS Latanoprost (Xalatan Oph Soln) 1 drops HS OPB 02/11/17 21:00 03/13/17 20:59 02/11/17 20:26 1 DROPS Metoprolol Tartrate (Lopressor Tab) 25 mg BID PO 02/11/17 21:00 03/13/17 20:59 Future Hold Sertraline HCl (Zoloft Tab) 50 mg HS PO 02/11/17 21:00 03/13/17 20:59 Future Hold Albuterol/ Ipratropium (Duoneb) 3 ml QIDR INH 02/11/17 16:00 03/13/17 15:59 02/12/17 14:41 3 ML Vancomycin HCl (Consult) 1 ea UD PRN N/A 02/11/17 13:30 03/13/17 13:29 Albuterol/ Ipratropium (Duoneb) 3 ml Q2H PRN INH 02/11/17 14:15 03/13/17 14:14 Cefepime HCl (Consult) 1 ea UD PRN N/A 02/11/17 14:45 03/13/17 14:44 Cefepime HCl 2000 mg/Syringe 20 ml @ 5 mls/min Q12H IV 02/11/17 18:00 02/18/17 17:59 02/12/17 05:53 5 MLS/MIN Vancomycin HCl 1250 mg/Sodium Chloride 275 ml @ 125 mls/hr Q24H IV 02/11/17 16:00 02/18/17 15:59 02/11/17 16:50 125 MLS/HR Metoprolol Tartrate (Lopressor Iv) 2.5 mg Q8 IV. 02/11/17 22:00 03/13/17 21:59 Future hold 02/12/17 14:15 2.5 MG Hydralazine HCl (HydrALAZINE INJ) 20 mg Q6 PRN IV. 02/11/17 15:45 03/13/17 15:44 Bumetanide 1 mg/ Syringe 4 ml @ 4 mls/min BID@0900,1700 IV 02/11/17 17:00 03/13/17 16:59 Future Hold 02/11/17 17:05 4 MLS/MIN Levothyroxine Sodium 12.5 mcg/ Syringe 0.625 ml @ 2 mls/min DAILY@09 IV 02/12/17 09:00 03/14/17 08:59 02/12/17 09:20 2 MLS/MIN Sodium Chloride 1,000 ml @ 125 mls/hr Q8H IV 02/11/17 17:00 03/13/17 16:59 02/12/17 15:13 125 MLS/HR Miscellaneous (Fentanyl Patch Remove & Waste) 1 ea Q3D@1959 N/A 02/13/17 19:59 03/15/17 19:58 Miscellaneous Information (Check Fentanyl Patch Placement) 1 ea QS N/A 02/12/17 08:00 03/14/17 07:59 02/12/17 07:17 1 EA Objective Vital Signs Date Time Temp Pulse Resp B/P (MAP) Pulse Ox O2 Delivery O2 Flow Rate FiO2 02/12/17 08:00 95 Oxymask 3.0 02/12/17 08:00 36.4 84 20 149/69 (95) 99 Oxymask 3.0 02/12/17 07:29 83 18 99 BiPAP/CPAP 3.0 02/12/17 05:52 92 145/73 02/12/17 04:53 36.2 89 16 156/65 (95) 98 CPAP 02/12/17 04:00 CPAP 3.0 02/12/17 00:00 CPAP 3.0 02/11/17 23:55 37.4 95 16 129/72 (91) 98 CPAP 02/11/17 22:35 85 96 02/11/17 21:42 95 129/69 02/11/17 19:53 36.5 91 24 132/76 (94) 99 Room Air 02/11/17 19:30 Oxymask 3.0 02/11/17 19:25 81 20 94 Diffusion Mask 3.0 02/11/17 16:00 Nasal Cannula 3.0 02/11/17 15:38 36.4 97 14 94/55 (68) 98 Nasal Cannula 3.0 02/11/17 14:00 36.9 97 16 145/75 (98) 99 Oxymask 3.0 02/11/17 13:27 97 18 141/83 99 Oxymask 4.0 02/11/17 12:48 99 20 112/74 99 Oxymask 4.0 02/11/17 12:48 102 02/11/17 12:27 100 02/11/17 12:25 100 Mask 4.0 02/11/17 12:08 37.5 101 20 136/62 100 Oxymask 4.0 02/11/17 10:57 102 20 135/67 100 Nebulizer 8.0 02/11/17 10:03 92 14 100 Diffusion Mask 4.0 02/11/17 09:32 85 24 128/87 99 Oxymask 4.0 Physical Exam General Appearance: WD/WN, no apparent distress Eyes: sclerae normal Neck: supple, no JVD, trachea midline Respiratory/Chest: lungs clear, no respiratory distress, no accessory muscle use, + decreased breath sounds (bases b/l) Cardiovascular: regular rate, rhythm, + systolic murmur Abdomen: normal bowel sounds, non tender, soft Neurologic/Psychiatric: alert Skin: normal color, warm/dry Laboratory Results Last 24 Hours Test 02/11/17 09:04 02/11/17 09:20 02/11/17 09:30 02/11/17 12:56 White Blood Count 15.60 K/uL Red Blood Count 6.31 M/uL Hemoglobin 17.9 g/dL Hematocrit 58.4 % Mean Corpuscular Volume 92.6 fL Mean Corpuscular Hemoglobin 28.4 pg Mean Corpuscular Hemoglobin Concent 30.7 g/dl Platelet Count 181 K/uL Mean Platelet Volume 12.0 fL Neutrophils (%) (Auto) 72.8 % Lymphocytes (%) (Auto) 14.6 % Monocytes (%) (Auto) 11.2 % Eosinophils (%) (Auto) 0.7 % Basophils (%) (Auto) 0.3 % Neutrophils # (Auto) 11.36 K/uL Lymphocytes # (Auto) 2.28 K/uL Monocytes # (Auto) 1.74 K/uL Eosinophils # (Auto) 0.11 K/uL Basophils # (Auto) 0.05 K/uL RDW Standard Deviation 62.2 fL RDW Coefficient of Variation 18.5 % Immature Granulocyte % (Auto) 0.4 % Immature Granulocyte # (Auto) 0.06 K/uL Prothrombin Time 13.0 SECONDS Prothromb Time International Ratio 1.2 Activated Partial Thromboplast Time 25.7 SECONDS Partial Thromboplastin Ratio 1.0 Sodium Level 157 mmol/L Potassium Level 3.8 mmol/L Chloride Level 115 mmol/L Carbon Dioxide Level 38 mmol/L Anion Gap 4.0 mmol/L Blood Urea Nitrogen 60 mg/dl Creatinine 1.19 mg/dl Est Creatinine Clear Calc Drug Dose 31.1 ml/min Estimated GFR () 47.2 Estimated GFR (Non- 40.7 BUN/Creatinine Ratio 50.8 Random Glucose 73 mg/dl Calcium Level 10.8 mg/dl Total Bilirubin 0.5 mg/dl Aspartate Amino Transf (AST/SGOT) 30 U/L Alanine Aminotransferase (ALT/SGPT) 27 U/L Alkaline Phosphatase 180 U/L Total Creatine Kinase 48 U/L Creatine Kinase MB 1.3 ng/ml Creatine Kinase MB Ratio 2.7 Troponin I 0.239 ng/ml Total Protein 8.0 gm/dl Albumin 3.1 gm/dl Globulin 4.9 gm/dl Albumin/Globulin Ratio 0.6 Procalcitonin 0.17 ng/ml Thyroid Stimulating Hormone (TSH) 1.280 uIu/ml Bedside Lactic Acid Venous 1.29 mmol/L Urine Color YELLOW Urine Appearance CLOUDY Urine pH 8.0 Urine Specific [place] 1.018 Urine Protein 2+ Urine Glucose (UA) NEG Urine Ketones NEG Urine Occult Blood 2+ Urine Nitrite NEG Urine Bilirubin NEG Urine Urobilinogen NEG Urine Leukocyte Esterase MODERATE Urine WBC (Auto) >30 /hpf Urine RBC (Auto) 5-10 /hpf Urine Hyaline Casts (Auto) 10-30 /lpf Urine Epithelial Cells (Auto) 20-30 /lpf Urine Bacteria (Auto) NEG Lactic Acid Level 1.8 mmol/L Test 02/11/17 16:02 02/11/17 17:05 02/11/17 20:25 02/12/17 00:20 Sodium Level 154 mmol/L Potassium Level 4.1 mmol/L Chloride Level 116 mmol/L Carbon Dioxide Level 33 mmol/L Anion Gap 6.0 mmol/L Blood Urea Nitrogen 60 mg/dl Creatinine 1.25 mg/dl Est Creatinine Clear Calc Drug Dose 29.6 ml/min Estimated GFR () 44.5 Estimated GFR (Non- 38.4 BUN/Creatinine Ratio 47.7 Random Glucose 165 mg/dl Calcium Level 10.3 mg/dl Creatine Kinase MB 3.4 ng/ml 3.9 ng/ml Creatine Kinase MB Ratio Troponin I 0.253 ng/ml 0.280 ng/ml Bedside Glucose 173 mg/dl 179 mg/dl Test 02/12/17 07:57 02/12/17 08:24 02/12/17 08:40 Bedside Glucose 153 mg/dl Assessment and Plan Acute Metabolic Encephalopathy 2/2 Dehydration vs Electrolyte Abnormalities vs Infectious: IMPROVING - Patient is non-verbal at baseline and does respond to questions using non- verbal communications - Will hold medications that can alter mentation at this time and re-evaluate tomorrow but will continue Fentanyl patch Sepsis 2/2 Proteus UTI vs Aspiration Pneumonia/Pneumonitis: - Cefepime 2 g BID and vancomycin Acute on Chronic Respiratory Failure 2/2 Pneumonia: IMPROVING - Supplemental O2 and CPAP/BiPAP as needed with Duonebs/inhalers - Symbicort BID Severe Hypernatremia: IMPROVING - Switch to LR and continue to trend Na levels - expect for slow correction of Na to prevent complications Elevated Troponin: Likely Demand vs Kidney Related HTN: - Norvasc 5 mg daily Atrial Fibrillation/AV Dissociation/Sick Sinus Syndrome S/P Pacer: - Pacemaker interrogated and functioning well; Digoxin level low - Digoxin 0.125 mg daily - Metoprolol 25 mg BID and Eliquis 2.5 mg BID Diabetes: A1c 7.2 - Reduced Lantus dosing at this time and SSI Diastolic Congestive Heart Failure/Pulmonary HTN/Severe : - Continue to monitor fluid balance in setting of hydration DVT Prophylaxis: Eliquis Code Status: DO NOT RESUSCITATE Disposition: - Updated son over the phone; discussed that his biggest concern is that she is comfortable; has noticed she gets better after her hospital stays but unfortunately then declines; expressed that patient desires to have normal food and discussed palliative options - Will place consult for palliative care - addressing goals of care and any recommendations to implement comfort focus while continuing to manage chronic conditions - Patient is a resident of [facility] Continued [facility] stay due to: multiple IV medications needed Discharge planning: custodial facility
[2017-02-12] MEDS: INSULIN ASPART 100 UNITS/ML 3 ML PEN SC SCH ×4 (09:09→20:44)
[2017-02-12 09:41] LABS: ESTIMATED AVERAGE GLUCOSE 160 mg/dl; HA1C FLAG Normal (Normal)
[2017-02-12 09:42] LABS: BUN/CREATININE RATIO 54.5 (10-20); CALCIUM 9.1 mg/dl (8.5-10.1); CREATININE 0.91 mg/dl (0.60-1.20); MAGNESIUM 2.8 mg/dl (1.8-2.4); PHOSPHORUS 2.7 mg/dl (2.5-4.9); POTASSIUM 3.6 mmol/L (3.5-5.1)
[2017-02-12 10:00] LABS: HEMATOCRIT 49.2 % (37-47); MEAN CELL VOLUME 92.7 fL (80-100); MEAN CORPUSCULAR HEMOGLOBIN 27.9 pg (25-34); MEAN CORPUSCULAR HGB CONC 30.1 g/dl (32-36); RED BLOOD COUNT 5.31 M/uL (4.2-5.4); WHITE BLOOD COUNT 14.29 K/uL (4.8-10.8)
[2017-02-12 10:03] LABS: BASO % 0.3 %; BASO ABS # 0.05 K/uL (0-0.2); COMPLETE YES; EOS % 0.9 %; IG% 0.4 %; LYMPH % 12.6 %; MONO % 9.4 %; NEUT % 76.4 %; PLATELET COUNT 139 K/uL (130-400)
--- NOTE | 2017-02-12 11:54 | Cardiology Consultation ---
Cardiology Consultation Date of Consultation: Feb 12, 2017. Requesting Physician: Dr. 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 A single-chamber pacemaker was used. She is chronically anticoagulated for her arrhythmia. She also has a history of severe COPD, diabetes, and hypothyroidism. She presented with a mental status change to the emergency room on 02/11/2017 and was felt to be septic. She was therefore admitted. On telemetry she was noted to have periods of sinus rhythm with intact AV conduction as well as periods of sinus rhythm with the pacemaker overriding the sinus rate. Additionally she had a wide complex rhythm periodically with a different morphology. Her troponins were slightly elevated. At the time of my evaluation she could provide little in the way of symptoms, however she is sitting upright in her bed and is alert. She is not very conversational. Past Medical/Surgical History (1) Hypertension (2) Diabetes (3) Chronic obstructive lung disease (4) CELLULITIS OF LEG (5) ATRIAL FIBRILLATION (6) CHRONIC KIDNEY DISEASE, STAGE II (MILD) (7) PERIPH VASCULAR DIS NOS (8) METHICILLIN RESISTANT STAPHYLOCOCCUS AUREUS ELSEWHERE/NOS Family History Unobtainable due to patient's condition Social History Smoking Status: Former Smoker History of Alcohol Use: No Review of Systems Skin: No see HPI, No rash, No itch, No new/changing skin lesions, No color change, No bleeding, No problem reported Her review of systems cannot be obtained due to her mental status Allergies Coded Allergies: RICHARD Inhibitors (Verified Allergy, Unknown, unknown, 02/11/17) Aspirin (Verified Allergy, Unknown, unknown, 02/11/17) hearthside Atenolol (Verified Allergy, Unknown, unknown; TAKES TOPROL XL W/O PROBLEM , 02/11/17) Cefprozil (Verified Allergy, Unknown, unknown, 02/11/17) TOLERATED ROCEPHIN 02/2014 FOR MULTIPLE DOSES Ciprofloxacin (Verified Allergy, Unknown, unknown, 02/11/17) Codeine (Verified Allergy, Unknown, unknown, 02/11/17) Fluticasone (Verified Allergy, Unknown, Unknown, 02/11/17) Furosemide (Verified Allergy, Unknown, ., 02/11/17) Hydrochlorothiazide (Verified Allergy, Unknown, unknown, 02/11/17) Hydrochlorothiazide w/Triamterene (Verified Allergy, Unknown, unknown, 02/11/17) Ibuprofen (Verified Allergy, Unknown, unknown; HAS TAKEN ASA W/O PROBLEM, 02/11/17) Lisinopril (Verified Allergy, Unknown, unknown, 02/11/17) Meperidine (Verified Allergy, Unknown, unknown, 02/11/17) Niacinamide (Verified Allergy, Unknown, NICOTINAMIDE, 02/11/17) Penicillins (Verified Allergy, Unknown, UNKNOWN, 02/11/17) TOLERATED ROCEPHIN 02/2014 FOR MULTIPLE DOSES, TOLERATED ZOSYN 08/26/2012-08/30 Quinolones (Verified Allergy, Unknown, 02/11/17) Rofecoxib (Verified Allergy, Unknown, unknown, 02/11/17) Salmeterol (Verified Allergy, Unknown, Unknown, 02/11/17) Spironolactone (Verified Allergy, Unknown, unknown, 02/11/17) Statins (Verified Allergy, Unknown, unknown, 02/11/17) Sulfa Antibiotics (Verified Allergy, Unknown, ., 02/11/17) Medications Current Inpatient Medications Medications (Trade) Dose Ordered Sig/Tariq Route Start Time Stop Time Status Last Admin Dose Admin Al Hydrox/Mg Hydrox/Simethicone (Maalox Max Susp) 15 ml Q4H PRN PO 02/11/17 12:45 03/13/17 12:44 Magnesium Hydroxide (Milk Of Magnesia Susp) 30 ml Q12H PRN PO 02/11/17 12:45 03/13/17 12:44 Zolpidem Tartrate (Ambien Tab) 5 mg HSZ PRN PO 02/11/17 12:45 03/13/17 12:44 Ondansetron HCl (Zofran Inj) 4 mg Q6H PRN IV 02/11/17 12:45 03/13/17 12:44 Polyethylene (Miralax Powder Packet) 17 gm DAILY PRN PO 02/11/17 12:45 03/13/17 12:44 Acetaminophen 100 ml @ 400 mls/hr Q8H PRN IV 02/11/17 12:45 03/13/17 12:44 02/11/17 22:24 400 MLS/HR Insulin Aspart (novoLOG ASPART) SLIDING SCALE G... ACHS SC 02/11/17 16:30 03/13/17 16:29 02/12/17 09:09 1 UNITS Amlodipine Besylate (Norvasc Tab) 5 mg DAILY PO 02/12/17 09:00 03/14/17 08:59 02/12/17 09:06 5 MG Apixaban (Eliquis Tab) 2.5 mg BID PO 02/11/17 21:00 03/13/17 20:59 Future Hold Atorvastatin Calcium (Lipitor Tab) 40 mg QPM PO 02/11/17 21:00 03/13/17 20:59 Future Hold Budesonide/ Formoterol Fumarate (Symbicort 160/ 4.5 Inh) 2 puffs BID INH 02/11/17 21:00 03/13/17 20:59 02/12/17 09:06 2 PUFFS Bumetanide (Bumex Tab) 2.5 mg BID17 PO 02/11/17 17:00 03/13/17 16:59 Future Hold Digoxin (Lanoxin Tab) 0.125 mg DAILY@1600 PO 02/11/17 16:00 03/13/17 15:59 Future Hold Fentanyl (Duragesic Patch) 25 mcg Q3D@2000 TD 02/13/17 20:00 02/27/17 19:59 Gabapentin (Neurontin Tab) 600 mg TID PO 02/11/17 14:00 03/13/17 13:59 Future Hold Guaifenesin (Mucinex Contr Rel Tab) 1,200 mg Q12 PO 02/11/17 21:00 03/13/17 20:59 Future Hold Insulin Glargine (Lantus Solostar Pen) 28 units QPM SC 02/11/17 21:00 03/13/17 20:59 02/11/17 20:28 28 UNITS Latanoprost (Xalatan Oph Soln) 1 drops HS OPB 02/11/17 21:00 03/13/17 20:59 02/11/17 20:26 1 DROPS Metoprolol Tartrate (Lopressor Tab) 25 mg BID PO 02/11/17 21:00 03/13/17 20:59 Future Hold Sertraline HCl (Zoloft Tab) 50 mg HS PO 02/11/17 21:00 03/13/17 20:59 Future Hold Albuterol/ Ipratropium (Duoneb) 3 ml QIDR INH 02/11/17 16:00 03/13/17 15:59 02/12/17 11:18 3 ML Vancomycin HCl (Consult) 1 ea UD PRN N/A 02/11/17 13:30 03/13/17 13:29 Albuterol/ Ipratropium (Duoneb) 3 ml Q2H PRN INH 02/11/17 14:15 03/13/17 14:14 Cefepime HCl (Consult) 1 ea UD PRN N/A 02/11/17 14:45 03/13/17 14:44 Cefepime HCl 2000 mg/Syringe 20 ml @ 5 mls/min Q12H IV 02/11/17 18:00 02/18/17 17:59 02/12/17 05:53 5 MLS/MIN Vancomycin HCl 1250 mg/Sodium Chloride 275 ml @ 125 mls/hr Q24H IV 02/11/17 16:00 02/18/17 15:59 02/11/17 16:50 125 MLS/HR Metoprolol Tartrate (Lopressor Iv) 2.5 mg Q8 IV. 02/11/17 22:00 03/13/17 21:59 Future Hold 02/12/17 05:52 2.5 MG Hydralazine HCl (HydrALAZINE INJ) 20 mg Q6 PRN IV. 02/11/17 15:45 03/13/17 15:44 Bumetanide 1 mg/ Syringe 4 ml @ 4 mls/min BID@0900,1700 IV 02/11/17 17:00 03/13/17 16:59 Future Hold 02/11/17 17:05 4 MLS/MIN Levothyroxine Sodium 12.5 mcg/ Syringe 0.625 ml @ 2 mls/min DAILY@09 IV 02/12/17 09:00 03/14/17 08:59 02/12/17 09:20 2 MLS/MIN Sodium Chloride 1,000 ml @ 125 mls/hr Q8H IV 02/11/17 17:00 03/13/17 16:59 02/12/17 06:46 125 MLS/HR Miscellaneous (Fentanyl Patch Remove & Waste) 1 ea Q3D@1959 N/A 02/13/17 19:59 03/15/17 19:58 Miscellaneous Information (Check Fentanyl Patch Placement) 1 ea QS N/A 02/12/17 08:00 03/14/17 07:59 02/12/17 07:17 1 EA Physical Exam Vital Signs Past 12 Hours Date Time Temp Pulse Resp B/P (MAP) Pulse Ox O2 Delivery O2 Flow Rate FiO2 02/12/17 11:20 84 18 99 Nasal Cannula 3.0 02/12/17 08:00 95 Oxymask 3.0 02/12/17 08:00 36.4 84 20 149/69 (95) 99 Oxymask 3.0 02/12/17 07:29 83 18 99 BiPAP/CPAP 3.0 02/12/17 05:52 92 145/73 02/12/17 04:53 36.2 89 16 156/65 (95) 98 CPAP 02/12/17 04:00 CPAP 3.0 02/12/17 00:00 CPAP 3.0 02/11/17 23:55 37.4 95 16 129/72 (91) 98 CPAP Constitutional: General Apperance: overweight Level of Distress: mild distress Psychiatric: Orientation: not oriented to time, not oriented to place, not oriented to person Head: normocephalic Eyes: EOM: EOMI ENMT: normal ENT inspection, hearing grossly normal Neck: supple, no masses Lungs: Respiratory effort: no dyspnea, good air movement Auscultation: breath sounds normal, no wheezing Cardiovascular: Heart Auscultation: RRR, no rubs, no gallops, II/ ANSHUL, II/ WSM Peripheral Pulses: Bruits: none appreciated Abdomen: Bowel Sounds: normal Inspection & Palpation: soft, no tenderness, guarding & rebound, no masses Extremities: no edema Neurologic: Cranial Nerves: grossly intact Sensation: grossly intact Data Laboratory Results: Last 24 Hours Test 02/11/17 12:56 02/11/17 16:02 02/11/17 17:05 02/11/17 20:25 Lactic Acid Level 1.8 mmol/L Sodium Level 154 mmol/L Potassium Level 4.1 mmol/L Chloride Level 116 mmol/L Carbon Dioxide Level 33 mmol/L Anion Gap 6.0 mmol/L Blood Urea Nitrogen 60 mg/dl Creatinine 1.25 mg/dl Est Creatinine Clear Calc Drug Dose 29.6 ml/min Estimated GFR () 44.5 Estimated GFR (Non- 38.4 BUN/Creatinine Ratio 47.7 Random Glucose 165 mg/dl Calcium Level 10.3 mg/dl Creatine Kinase MB 3.4 ng/ml Creatine Kinase MB Ratio Troponin I 0.253 ng/ml Bedside Glucose 173 mg/dl 179 mg/dl Test 02/12/17 00:20 02/12/17 07:57 02/12/17 08:24 02/12/17 08:40 Creatine Kinase MB 3.9 ng/ml Creatine Kinase MB Ratio Troponin I 0.280 ng/ml Bedside Glucose 153 mg/dl Sodium Level 154 mmol/L Potassium Level 3.6 mmol/L Chloride Level 116 mmol/L Carbon Dioxide Level 35 mmol/L Anion Gap 3.0 mmol/L Blood Urea Nitrogen 50 mg/dl Creatinine 0.91 mg/dl Est Creatinine Clear Calc Drug Dose 37.8 ml/min Estimated GFR () 65.3 Estimated GFR (Non- 56.3 BUN/Creatinine Ratio 54.5 Random Glucose 168 mg/dl Calcium Level 9.1 mg/dl Phosphorus Level 2.7 mg/dl Magnesium Level 2.8 mg/dl White Blood Count 14.29 K/uL Red Blood Count 5.31 M/uL Hemoglobin 14.8 g/dL Hematocrit 49.2 % Mean Corpuscular Volume 92.7 fL Mean Corpuscular Hemoglobin 27.9 pg Mean Corpuscular Hemoglobin Concent 30.1 g/dl Platelet Count 139 K/uL Neutrophils (%) (Auto) 76.4 % Lymphocytes (%) (Auto) 12.6 % Monocytes (%) (Auto) 9.4 % Eosinophils (%) (Auto) 0.9 % Basophils (%) (Auto) 0.3 % Neutrophils # (Auto) 10.90 K/uL Lymphocytes # (Auto) 1.80 K/uL Monocytes # (Auto) 1.35 K/uL Eosinophils # (Auto) 0.13 K/uL Basophils # (Auto) 0.05 K/uL Immature Granulocyte % (Auto) 0.4 % Immature Granulocyte # (Auto) 0.06 K/uL Red Blood Cell Morphology Unremarkable Estimated Average Glucose 160 mg/dl Hemoglobin A1c 7.2 % Test 02/12/17 09:12 Digoxin Level 0.6 ng/ml Imaging: Chest x-ray on arrival is consistent with CHF and possible pneumonitis EKG: The electrocardiogram on admission shows sinus rhythm at a rate of 93 bpm with inferior and anterolateral ST-T abnormalities suggestive of ischemia. No ST elevation. Telemetry reviewed: Review of telemetry shows periods of sinus rhythm with intact AV conduction, periods of sinus bradycardia with normal pacemaker function as well as brief periods of a wide complex rhythm with a different morphology than her paced rhythm which could be an accelerated ventricular rhythm (not ventricular tachycardia). Pacemaker evaluation: Her pacemaker is functioning well, prior to admission she was pacing about two thirds of the time, here she is pacing last. Battery voltage is excellent. With a single chamber pacemaker we cannot evaluate atrial arrhythmias. Assessment & Plan 1. Rhythm: She has sick sinus syndrome with SR at times and slow HR (SB) at others resulting in intermittent pacing. She has a single-chamber pacemaker therefore she has A-V dissociation when she is in sinus bradycardia and ventricular pacing at 60 bpm. I think this is an acceptable rhythm, the only way to alter this would be to slow the heart rate down so she had more intrinsic conduction or to implant an atrial lead, I don't think either is in her long-term best interest. She may have periods of accelerated idioventricular rhythm, however these are not fast and I would not treat specifically. I would go ahead and restart her beta blockade and her digoxin to make sure she does not have rapid AV conduction. 2. Elevated troponin: Her troponins have been somewhat elevated, I believe she has coronary artery disease based on records although I don't know details. Her creatinine is slightly higher this visit than before and that may explain why the measurements are little bit high, that they do not suggest an infarction pattern and I think her demand ischemia. Her initial electrocardiogram suggested ischemia but there was no ST elevation. I would not pursue further. 3. Pacemaker: Pacemaker is functioning well, overall she paced about two thirds the time prior to her admission. She is pacing a little bit less now probably due to holding her meds as well as her presentation which probably is a high catecholamine state. We did not make any changes to her programming. Thank you for allowing me to participate in her care.
[2017-02-12] MEDS: ACETAMINOPHEN IV 100 ML IV PRN ×2 (14:22→21:10)
[2017-02-12] MEDS: VANCOMYCIN INJ 1,250 MG in SODIUM CHLORIDE 0.9% 250ML 250 ML IV SCH (16:23)
[2017-02-12] MEDS: DIGOXIN 0.125 MG TAB PO SCH (16:26)
[2017-02-12 17:27] LABS: BUN/CREATININE RATIO 50.1 (10-20); CALCIUM 9.2 mg/dl (8.5-10.1); CREATININE 0.8 mg/dl (0.60-1.20); POTASSIUM 3.4 mmol/L (3.5-5.1)
[2017-02-12] MEDS: LACTATED RINGER'S 1000ML 1,000 ML IV SCH (18:34)
[2017-02-12] MEDS: LEVOTHYROXINE 25 MCG TAB PO SCH (18:35)
[2017-02-12] MEDS: LATANOPROST 0.005% OP SOLN 2.5 ML BTL OPB SCH (20:35)
[2017-02-12] MEDS: APIXABAN 2.5 MG TAB PO SCH (20:36)
[2017-02-12] MEDS: ATORVASTATIN 40 MG TAB PO SCH (20:36)
[2017-02-12] MEDS: LACTOBACILLUS ACIDOPHILUS (FLORANEX) TAB PO SCH (20:36)
[2017-02-12] MEDS: RANITIDINE HCL 150 MG TAB PO SCH (20:37)
[2017-02-12] MEDS: METOPROLOL TARTRATE 25 MG TAB PO SCH (20:38)
[2017-02-12] MEDS: INSULIN GLARGINE SOLOSTAR 100 UNITS/ML 3 ML PEN SC SCH (20:45)
[2017-02-13] VITALS (10 sets, daily range): BP systolic 95–122; BP diastolic 67–85; PULSE 61–113; TEMP 36.6–37; O2SAT 65–99
[2017-02-13] MEDS: LACTATED RINGER'S 1000ML 1,000 ML IV SCH ×3 (02:38→17:05)
[2017-02-13] MEDS: CEFEPIME IV 2,000 MG in SYRINGE 7.5 ML IV SCH ×2 (05:54→17:05)
[2017-02-13 06:00] LABS: MEAN CORPUSCULAR HGB CONC 31.1 g/dl (32-36)
[2017-02-13 06:09] LABS: MEAN CELL VOLUME 91.1 fL (80-100); MEAN CORPUSCULAR HEMOGLOBIN 28.3 pg (25-34); RED BLOOD COUNT 4.94 M/uL (4.2-5.4); WHITE BLOOD COUNT 11.35 K/uL (4.8-10.8)
[2017-02-13 06:20] LABS: MEAN PLATELET VOLUME 11.3 fL (7.4-10.4); PLATELET COUNT 112 K/uL (130-400); PLT ESTIMATE DECREASED
[2017-02-13] MEDS: INSULIN ASPART 100 UNITS/ML 3 ML PEN SC SCH ×4 (06:30→21:52)
[2017-02-13 06:38] LABS: CALCIUM 9.1 mg/dl (8.5-10.1); CREATININE 0.46 mg/dl (0.60-1.20); POTASSIUM 3.3 mmol/L (3.5-5.1)
[2017-02-13] MEDS: ALBUT/IPRATROP 3MG/0.5MG NEB 3 ML VIAL INH SCH ×4 (07:00→19:45)
[2017-02-13] MEDS: CHECK FENTANYL PATCH PLACEMENT SCH ×3 (07:23→23:35)
[2017-02-13] MEDS: METOPROLOL TARTRATE 25 MG TAB PO SCH ×2 (07:24→21:48)
[2017-02-13] MEDS: LACTOBACILLUS ACIDOPHILUS (FLORANEX) TAB PO SCH ×2 (07:25→21:46)
[2017-02-13] MEDS: BUDESONIDE/FORMOTEROL FUMARATE 160/4.5 60 PUFFS/INHALER INH SCH ×2 (07:25→21:00)
[2017-02-13] MEDS: RANITIDINE HCL 150 MG TAB PO SCH ×2 (07:25→21:49)
[2017-02-13] MEDS: APIXABAN 2.5 MG TAB PO SCH ×2 (07:25→21:47)
[2017-02-13] MEDS: AMLODIPINE BESYLATE 5 MG TAB PO SCH (07:26)
[2017-02-13] MEDS ORDERED: POTASSIUM CHLORIDE 20 MEQ TABCR PO STA (08:44)
--- NOTE | 2017-02-13 10:38 | Palliative Care Consultation ---
Consultation Date of Consultation: Feb 13, 2017. Requesting Physician: Yanira Mayberry PA-C Attending Physician: Yanira Mayberry PA-C; Dr. Aaron Reason for Consultation: Goals of care History of Present Illness This 87 year old female patient with PMH chronic diastolic CHF, severe aortic stenosis, chronic UTI and aspiration pneumonia, and others listed below, presented to the hospital for altered mental status, Proteus UTI and pneumonia. Patient comes to [facility] from the [facility] where she resides, and has had multiple readmissions this year for the same complaints. Patient has been on a steady decline/deterioration over the last year or more. She is not able to ambulate, is mostly nonverbal other than some one word answers. Palliative care is consulted to establish goals of care. I met with the patient in room 281. She awakens to name, is smiling and in no distress. Currently is nodding head "yes" to all questions, or just smiling and not answering at all. No meaningful goals of care conversation able to be held with patient. I called her son and POA, Hector Powell, and discussed patient' s conditions including chronic UTI, chronic aspiration pneumonia, and deteriorating physical state. Hector agreed and said that patient really has been declining since 2008 when her /his father . Especially in the last year, patient stopped walking, had multiple falls, and multiple readmissions to the hospital. Hector states that the family really wants patient to be comfortable but also would like her to continue to come to hospital to treat chronic conditions. He and his brother and sister are not quite ready to move toward comfort/hospice care, but certainly would like to avoid invasive/aggressive measures. They are okay with abx, IV fluids, medications as needed; but would not want a feeding tube or breathing tube placed. They would like patient's pain to continue to be treated with the fentanyl patch which seems to work well. We did discuss the option of hospice care-- what it is and what the goal with hospice would be. Hector stated that his brother is probably ready for hospice care, but his sister is not. Patient' s own living will states that she would want all life prolonging measures except mechanical ventilation, but did name her son Hector as surrogate decision maker if she is unable, so he is able to override. Patient is current DNR status as discussed with Dr. Aaron and he confirmed with me. 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 PVD MRSA Pulmonary htn Nonambulatory Right leg AKA Social History Smoking Status: Former Smoker History of Alcohol Use: No Drug Use: none Marital Status: Housing Status: assisted living Occupation Status: retired Review of Systems unable to obtain ROS Allergies Coded Allergies: RICHARD Inhibitors (Verified Allergy, Unknown, unknown, 02/11/17) Aspirin (Verified Allergy, Unknown, unknown, 02/11/17) [facility] Atenolol (Verified Allergy, Unknown, unknown; TAKES TOPROL XL W/O PROBLEM , 02/11/17) Cefprozil (Verified Allergy, Unknown, unknown, 02/11/17) TOLERATED ROCEPHIN 02/2014 FOR MULTIPLE DOSES Ciprofloxacin (Verified Allergy, Unknown, unknown, 02/11/17) Codeine (Verified Allergy, Unknown, unknown, 02/11/17) Fluticasone (Verified Allergy, Unknown, Unknown, 02/11/17) Furosemide (Verified Allergy, Unknown, ., 02/11/17) Hydrochlorothiazide (Verified Allergy, Unknown, unknown, 02/11/17) Hydrochlorothiazide w/Triamterene (Verified Allergy, Unknown, unknown, 02/11/17) Ibuprofen (Verified Allergy, Unknown, unknown; HAS TAKEN ASA W/O PROBLEM, 02/11/17) Lisinopril (Verified Allergy, Unknown, unknown, 02/11/17) Meperidine (Verified Allergy, Unknown, unknown, 02/11/17) Niacinamide (Verified Allergy, Unknown, NICOTINAMIDE, 02/11/17) Penicillins (Verified Allergy, Unknown, UNKNOWN, 02/11/17) TOLERATED ROCEPHIN 02/2014 FOR MULTIPLE DOSES, TOLERATED ZOSYN 08/26/2012-08/30 Quinolones (Verified Allergy, Unknown, 02/11/17) Rofecoxib (Verified Allergy, Unknown, unknown, 02/11/17) Salmeterol (Verified Allergy, Unknown, Unknown, 02/11/17) Spironolactone (Verified Allergy, Unknown, unknown, 02/11/17) Statins (Verified Allergy, Unknown, unknown, 02/11/17) Sulfa Antibiotics (Verified Allergy, Unknown, ., 02/11/17) Medications Current Inpatient Medications Medications (Trade) Dose Ordered Sig/Tariq Route Start Time Stop Time Status Last Admin Dose Admin Al Hydrox/Mg Hydrox/Simethicone (Maalox Max Susp) 15 ml Q4H PRN PO 02/11/17 12:45 03/13/17 12:44 Magnesium Hydroxide (Milk Of Magnesia Susp) 30 ml Q12H PRN PO 02/11/17 12:45 03/13/17 12:44 Zolpidem Tartrate (Ambien Tab) 5 mg HSZ PRN PO 02/11/17 12:45 03/13/17 12:44 Ondansetron HCl (Zofran Inj) 4 mg Q6H PRN IV 02/11/17 12:45 03/13/17 12:44 Polyethylene (Miralax Powder Packet) 17 gm DAILY PRN PO 02/11/17 12:45 03/13/17 12:44 Acetaminophen 100 ml @ 400 mls/hr Q8H PRN IV 02/11/17 12:45 03/13/17 12:44 02/12/17 21:10 400 MLS/HR Insulin Aspart (novoLOG ASPART) SLIDING SCALE G... ACHS SC 02/11/17 16:30 03/13/17 16:29 02/12/17 20:44 1 UNITS Amlodipine Besylate (Norvasc Tab) 5 mg DAILY PO 02/12/17 09:00 03/14/17 08:59 02/13/17 07:26 5 MG Apixaban (Eliquis Tab) 2.5 mg BID PO 02/11/17 21:00 03/13/17 20:59 Future hold 02/13/17 07:25 2.5 MG Atorvastatin Calcium (Lipitor Tab) 40 mg QPM PO 02/11/17 21:00 03/13/17 20:59 Future hold 02/12/17 20:36 40 MG Budesonide/ Formoterol Fumarate (Symbicort 160/ 4.5 Inh) 2 puffs BID INH 02/11/17 21:00 03/13/17 20:59 02/13/17 07:25 2 PUFFS Bumetanide (Bumex Tab) 2.5 mg BID17 PO 02/11/17 17:00 03/13/17 16:59 Future Hold Digoxin (Lanoxin Tab) 0.125 mg DAILY@1600 PO 02/11/17 16:00 03/13/17 15:59 Future hold 02/12/17 16:26 0.125 MG Fentanyl (Duragesic Patch) 25 mcg Q3D@2000 TD 02/13/17 20:00 02/27/17 19:59 Guaifenesin (Mucinex Contr Rel Tab) 1,200 mg Q12 PO 02/11/17 21:00 03/13/17 20:59 Future Hold Insulin Glargine (Lantus Solostar Pen) 28 units QPM SC 02/11/17 21:00 03/13/17 20:59 02/12/17 20:45 28 UNITS Latanoprost (Xalatan Oph Soln) 1 drops HS OPB 02/11/17 21:00 03/13/17 20:59 02/12/17 20:35 1 DROPS Metoprolol Tartrate (Lopressor Tab) 25 mg BID PO 02/11/17 21:00 03/13/17 20:59 Future hold 02/13/17 07:24 25 MG Sertraline HCl (Zoloft Tab) 50 mg HS PO 02/11/17 21:00 03/13/17 20:59 Future Hold Albuterol/ Ipratropium (Duoneb) 3 ml QIDR INH 02/11/17 16:00 03/13/17 15:59 02/13/17 07:00 3 ML Vancomycin HCl (Consult) 1 ea UD PRN N/A 02/11/17 13:30 03/13/17 13:29 Albuterol/ Ipratropium (Duoneb) 3 ml Q2H PRN INH 02/11/17 14:15 03/13/17 14:14 Cefepime HCl (Consult) 1 ea UD PRN N/A 02/11/17 14:45 03/13/17 14:44 Cefepime HCl 2000 mg/Syringe 20 ml @ 5 mls/min Q12H IV 02/11/17 18:00 02/18/17 17:59 02/13/17 05:54 5 MLS/MIN Vancomycin HCl 1250 mg/Sodium Chloride 275 ml @ 125 mls/hr Q24H IV 02/11/17 16:00 02/18/17 15:59 02/12/17 16:23 125 MLS/HR Hydralazine HCl (HydrALAZINE INJ) 20 mg Q6 PRN IV. 02/11/17 15:45 03/13/17 15:44 Bumetanide 1 mg/ Syringe 4 ml @ 4 mls/min BID@0900,1700 IV 02/11/17 17:00 03/13/17 16:59 Future Hold 02/11/17 17:05 4 MLS/MIN Miscellaneous (Fentanyl Patch Remove & Waste) 1 ea Q3D@1959 N/A 02/13/17 19:59 03/15/17 19:58 Miscellaneous Information (Check Fentanyl Patch Placement) 1 ea QS N/A 02/12/17 08:00 03/14/17 07:59 02/13/17 07:23 1 EA Lactated Ringer's 1,000 ml @ 125 mls/hr Q8H IV 02/12/17 16:30 03/14/17 16:29 02/13/17 07:24 125 MLS/HR Lactobacillus Acidophilus (Floranex Tab) 1 tab BID PO 02/12/17 21:00 03/14/17 20:59 02/13/17 07:25 1 TAB Levothyroxine Sodium (Synthroid Tab) 25 mcg Q2D@0600 PO 02/12/17 17:00 03/14/17 16:59 02/12/17 18:35 25 MCG Ranitidine HCl (zANTac TAB) 150 mg BID PO 02/12/17 21:00 03/14/17 20:59 02/13/17 07:25 150 MG Physical Exam Date Time Temp Pulse Resp B/P (MAP) Pulse Ox O2 Delivery O2 Flow Rate FiO2 02/13/17 08:00 CPAP 3.0 02/13/17 07:58 36.6 106 20 122/76 (91) 98 4.0 02/13/17 07:01 113 18 92 Room Air 02/13/17 04:00 CPAP 3.0 02/13/17 00:00 CPAP 3.0 02/12/17 23:49 36.6 82 20 158/75 (102) 97 BiPAP 02/12/17 23:00 80 96 02/12/17 20:37 82 18 98 Nasal Cannula 3.0 02/12/17 20:09 98 Nasal Cannula 3.0 02/12/17 19:02 37.0 85 18 142/75 (97) 95 Room Air 3.0 02/12/17 16:26 65 02/12/17 16:10 98 Nasal Cannula 3.0 02/12/17 16:08 36.9 84 18 156/61 (92) 98 Nasal Cannula 2.0 02/12/17 14:42 81 18 99 Mask 3.0 02/12/17 14:15 36.8 89 20 147/76 (99) 100 Oxymask 3.0 02/12/17 14:15 89 147/76 02/12/17 12:48 36.7 88 20 118/55 (76) 100 Nasal Cannula 3.0 02/12/17 12:00 99 Oxymask 3.0 02/12/17 11:20 84 18 99 Nasal Cannula 3.0 General Appearance: no apparent distress, + obese, + pertinent finding ( physically deconditioned) ENT: hearing grossly normal Neck: supple, no JVD Respiratory: no respiratory distress, no accessory muscle use, + decreased breath sounds, + pertinent finding (unable to ausculate posterior LS at this time) Cardiovascular: + systolic murmur (severe), + irregularly irregular, + pertinent finding (no pitting edema of LLE) Abdomen: normal bowel sounds, non tender, soft (obese abdomen) Musculoskeletal: pertinent finding (right AKA) Neurologic/Psychiatric: alert, + pertinent finding (pleasant, nonverbal at this time) Laboratory Results Last 24 Hours Test 02/12/17 11:54 02/12/17 16:36 02/12/17 16:41 02/12/17 17:55 Bedside Glucose 155 mg/dl 163 mg/dl 168 mg/dl Sodium Level 153 mmol/L Potassium Level 3.4 mmol/L Chloride Level 115 mmol/L Carbon Dioxide Level 34 mmol/L Anion Gap 4.0 mmol/L Blood Urea Nitrogen 40 mg/dl Creatinine 0.80 mg/dl Est Creatinine Clear Calc Drug Dose 43.0 ml/min Estimated GFR () 76.3 Estimated GFR (Non- 65.8 BUN/Creatinine Ratio 50.1 Random Glucose 162 mg/dl Calcium Level 9.2 mg/dl Test 02/12/17 20:00 02/13/17 05:52 02/13/17 08:21 Bedside Glucose 163 mg/dl 99 mg/dl White Blood Count 11.35 K/uL Red Blood Count 4.94 M/uL Hemoglobin 14.0 g/dL Hematocrit 45.0 % Mean Corpuscular Volume 91.1 fL Mean Corpuscular Hemoglobin 28.3 pg Mean Corpuscular Hemoglobin Concent 31.1 g/dl RDW Standard Deviation 60.0 fL RDW Coefficient of Variation 17.9 % Platelet Count 112 K/uL Mean Platelet Volume 11.3 fL Platelet Estimate DECREASED Sodium Level 154 mmol/L Potassium Level 3.3 mmol/L Chloride Level 119 mmol/L Carbon Dioxide Level 32 mmol/L Anion Gap 3.0 mmol/L Blood Urea Nitrogen 25 mg/dl Creatinine 0.46 mg/dl Est Creatinine Clear Calc Drug Dose 74.9 ml/min Estimated GFR () 102.9 Estimated GFR (Non- 88.8 BUN/Creatinine Ratio 55.0 Random Glucose 108 mg/dl Calcium Level 9.1 mg/dl Troponin I 0.312 ng/ml Assessment & Plan Palliative Performance Scale: 30 % Problem list: Altered mental status/encephalopathy 2/2 infectious process Weakness/nonambulatory Aspiration pneumonia, chronic UTI, chronic- Proteus Chronic diastolic CHF, severe , pulmonary htn Afib, chronic Pacemaker- functioning well Elevated troponin- cardiology following Hypernatremia- improving Dehydration, elevated BUN/creatinine- improving Goals of care (Z51.5) Palliative care recs: discussed with patient's son/POA, Hector Powell, and Yanira Mayberry PA-C. -Patient is currently level 5 DNR. -Continue with current medical management of pnx and UTI with IV abx. -Son states that he and his siblings do want patient to be comfortable and avoid invasive/aggressive measures as much as possible, but are okay with her coming to the hospital for treatment at this time. -We discussed patient's level of dementia on the FAST scale as being advanced at 7c, chronic aspiration pneumonia and UTI; and that these cannot be "fixed" and there may come a time that patient does not improve at all. Hector agreed and verbalized understanding-- they just are not there yet. -Plan is for patient to return to the [facility]. We discussed adding hospice care-- he will discuss with his siblings but does not feel they are ready for that at this time. He will let me know if they change their minds. -Patient's POLST form in our system from March 2016 states she wants CPR attempted, limited add'l interventions, longer abx, and group home feeding. Patient's son Hector is named her surrogate decision maker and POA, so he is able to override. -Hector confirmed that patient is DNR, and that they would not want to place a feeding tube. POLST form should be redone upon discharge if DNR status is supposed to continue out of the hospital. Old POLST will then need to be voided. Son is unable to come in today to redo POLST. Thank you kindly for this consult. I will follow.
--- NOTE | 2017-02-13 11:51 | Clinical Documentation Query ---
CLINICAL DOCUMENTATION QUERY IF IN AGREEMENT, YOU MUST DOCUMENT DIAGNOSTIC STATEMENT IN DAILY PROGRESS NOTES AND DISCHARGE SUMMARY. This document is not part of the patient's record. An 87-year-old white female with a significant past medical history of chronic respiratory failure secondary to COPD on chronic O2 3 liter per minute, persistent atrial fibrillation, In your clinical opinion is this patient being managed for: ( ) Myocardial infarction due to demand ischemia ( ) Not Agree ( ) Other explanation of clinical findings (Please Explain) ( ) Unable to determine (Please Define) ( ) Need to Discuss Type 1: spontaneous IA related to ischemia d/t a primary coronary event (plaque erosion, dissection) *Type 2: IA related to ischemia associated with increased O2 demand or decreased supply *Type 3: sudden unexpected cardiac *Type 4: associated with PCI/Stents *Type 4a: IA d/t PCI *Type 4b: IA d/t stent *Type 4c: IA d/t restenosis* *Type 5: IA associated with CABG The medical record reflects the following clinical findings, treatment, and risk factors. Clinical Indicators: Troponin 0.239 trending up to 0.312, ST & T wave abnormality; possible anterior/inferior ischemia Treatment: O2, serial troponins, Cardiology consult Risk Factors: Age, sepsis, CHF pneumonia, ARF, ROSALVA Please clarify and document your clinical opinion in the progress notes and discharge summary. Terms such as "probable", "suspected", "likely", "questionable", "possible", or "still to be ruled out" are acceptable. Thank You, Betsy Amin RN [phone]
[2017-02-13] MEDS ORDERED: VANCOMYCIN TROUGH ONE (15:30)
[2017-02-13 15:58] LABS: BUN/CREATININE RATIO 38.2 (10-20); CALCIUM 9.1 mg/dl (8.5-10.1); CREATININE 0.47 mg/dl (0.60-1.20); POTASSIUM 3.2 mmol/L (3.5-5.1)
[2017-02-13] MEDS: VANCOMYCIN INJ 1,250 MG in SODIUM CHLORIDE 0.9% 250ML 250 ML IV SCH (17:03)
[2017-02-13] MEDS: DIGOXIN 0.125 MG TAB PO SCH (17:05)
--- NOTE | 2017-02-13 18:03 | Hospitalist Progress Note ---
Hospitalist Progress Note Date of Service Feb 13, 2017. Subjective Pt evaluation today including: conversation w/ patient, conversation w/ family , physical exam, chart review, lab review, review of studies, review of inpatient medication list Voiding: hamilton catheter in place Patient seen and evaluated. No acute events overnight. Mouths some words and intermittently responds to yes/no questions with head nods ; still a little drowsy but more animated with facial expressions today then yesterday. Daughter called and gave her an update but states patient is normally more conversational but per documentation from previous admissions she isn't very verbal in-hospital Na is slowing improving and careful monitoring for fluid status maintained. Only + 1 L and will continue to monitor for balance as body habitus limits ability to assess this. No respiratory distress noted; mouth is extremely dry but is not participating in oral care. Additional Comments: ROS deferred as patient non-verbal. Only shook head no for pain. Medications Current Inpatient Medications Medications (Trade) Dose Ordered Sig/Tariq Route Start Time Stop Time Status Last Admin Dose Admin Al Hydrox/Mg Hydrox/Simethicone (Maalox Max Susp) 15 ml Q4H PRN PO 02/11/17 12:45 03/13/17 12:44 Magnesium Hydroxide (Milk Of Magnesia Susp) 30 ml Q12H PRN PO 02/11/17 12:45 03/13/17 12:44 Zolpidem Tartrate (Ambien Tab) 5 mg HSZ PRN PO 02/11/17 12:45 03/13/17 12:44 Ondansetron HCl (Zofran Inj) 4 mg Q6H PRN IV 02/11/17 12:45 03/13/17 12:44 Polyethylene (Miralax Powder Packet) 17 gm DAILY PRN PO 02/11/17 12:45 03/13/17 12:44 Acetaminophen 100 ml @ 400 mls/hr Q8H PRN IV 02/11/17 12:45 03/13/17 12:44 02/12/17 21:10 400 MLS/HR Insulin Aspart (novoLOG ASPART) SLIDING SCALE G... ACHS SC 02/11/17 16:30 03/13/17 16:29 02/12/17 20:44 1 UNITS Amlodipine Besylate (Norvasc Tab) 5 mg DAILY PO 02/12/17 09:00 03/14/17 08:59 02/13/17 07:26 5 MG Apixaban (Eliquis Tab) 2.5 mg BID PO 02/11/17 21:00 03/13/17 20:59 Future hold 02/13/17 07:25 2.5 MG Atorvastatin Calcium (Lipitor Tab) 40 mg QPM PO 02/11/17 21:00 03/13/17 20:59 Future hold 02/12/17 20:36 40 MG Budesonide/ Formoterol Fumarate (Symbicort 160/ 4.5 Inh) 2 puffs BID INH 02/11/17 21:00 03/13/17 20:59 02/13/17 07:25 2 PUFFS Bumetanide (Bumex Tab) 2.5 mg BID17 PO 02/11/17 17:00 03/13/17 16:59 Future Hold Digoxin (Lanoxin Tab) 0.125 mg DAILY@1600 PO 02/11/17 16:00 03/13/17 15:59 Future hold 02/13/17 17:05 0.125 MG Fentanyl (Duragesic Patch) 25 mcg Q3D@2000 TD 02/13/17 20:00 02/27/17 19:59 Guaifenesin (Mucinex Contr Rel Tab) 1,200 mg Q12 PO 02/11/17 21:00 03/13/17 20:59 Future Hold Insulin Glargine (Lantus Solostar Pen) 28 units QPM SC 02/11/17 21:00 03/13/17 20:59 02/12/17 20:45 28 UNITS Latanoprost (Xalatan Oph Soln) 1 drops HS OPB 02/11/17 21:00 03/13/17 20:59 02/12/17 20:35 1 DROPS Metoprolol Tartrate (Lopressor Tab) 25 mg BID PO 02/11/17 21:00 03/13/17 20:59 Future hold 02/13/17 07:24 25 MG Sertraline HCl (Zoloft Tab) 50 mg HS PO 02/11/17 21:00 03/13/17 20:59 Future Hold Albuterol/ Ipratropium (Duoneb) 3 ml QIDR INH 02/11/17 16:00 03/13/17 15:59 02/13/17 15:05 3 ML Vancomycin HCl (Consult) 1 ea UD PRN N/A 02/11/17 13:30 03/13/17 13:29 Albuterol/ Ipratropium (Duoneb) 3 ml Q2H PRN INH 02/11/17 14:15 03/13/17 14:14 Cefepime HCl (Consult) 1 ea UD PRN N/A 02/11/17 14:45 03/13/17 14:44 Cefepime HCl 2000 mg/Syringe 20 ml @ 5 mls/min Q12H IV 02/11/17 18:00 02/18/17 17:59 02/13/17 17:05 5 MLS/MIN Vancomycin HCl 1250 mg/Sodium Chloride 275 ml @ 125 mls/hr Q24H IV 02/11/17 16:00 02/18/17 15:59 02/13/17 17:03 125 MLS/HR Hydralazine HCl (HydrALAZINE INJ) 20 mg Q6 PRN IV. 02/11/17 15:45 03/13/17 15:44 Bumetanide 1 mg/ Syringe 4 ml @ 4 mls/min BID@0900,1700 IV 02/11/17 17:00 03/13/17 16:59 Future Hold 02/11/17 17:05 4 MLS/MIN Miscellaneous (Fentanyl Patch Remove & Waste) 1 ea Q3D@1959 N/A 02/13/17 19:59 03/15/17 19:58 Miscellaneous Information (Check Fentanyl Patch Placement) 1 ea QS N/A 02/12/17 08:00 03/14/17 07:59 02/13/17 17:04 1 EA Lactated Ringer's 1,000 ml @ 125 mls/hr Q8H IV 02/12/17 16:30 03/14/17 16:29 02/13/17 17:05 125 MLS/HR Lactobacillus Acidophilus (Floranex Tab) 1 tab BID PO 02/12/17 21:00 03/14/17 20:59 02/13/17 07:25 1 TAB Levothyroxine Sodium (Synthroid Tab) 25 mcg Q2D@0600 PO 02/12/17 17:00 03/14/17 16:59 02/12/17 18:35 25 MCG Ranitidine HCl (zANTac TAB) 150 mg BID PO 02/12/17 21:00 03/14/17 20:59 02/13/17 07:25 150 MG Objective Vital Signs Date Time Temp Pulse Resp B/P (MAP) Pulse Ox O2 Delivery O2 Flow Rate FiO2 02/13/17 17:05 120 02/13/17 15:47 36.6 100 18 95/67 (76) 92 4.0 02/13/17 15:05 84 18 99 Nasal Cannula 3.0 02/13/17 12:00 CPAP 3.0 02/13/17 11:22 61 18 98 Room Air 02/13/17 08:00 CPAP 3.0 02/13/17 07:58 36.6 106 20 122/76 (91) 98 4.0 02/13/17 07:01 113 18 92 Room Air 02/13/17 04:00 CPAP 3.0 02/13/17 00:00 CPAP 3.0 02/12/17 23:49 36.6 82 20 158/75 (102) 97 BiPAP 02/12/17 23:00 80 96 02/12/17 20:37 82 18 98 Nasal Cannula 3.0 02/12/17 20:09 98 Nasal Cannula 3.0 02/12/17 19:02 37.0 85 18 142/75 (97) 95 Room Air 3.0 Physical Exam General Appearance: no apparent distress, + obese Eyes: sclerae normal Neck: supple, no JVD, trachea midline Respiratory/Chest: lungs clear, no respiratory distress, no accessory muscle use Cardiovascular: regular rate, rhythm, + systolic murmur Abdomen: normal bowel sounds, non tender, soft Neurologic/Psychiatric: alert, + pertinent finding (intermittently drowsy; more animated and smiling today) Skin: normal color, warm/dry Laboratory Results Last 24 Hours Test 02/12/17 17:55 02/12/17 20:00 02/13/17 05:52 02/13/17 08:21 Bedside Glucose 168 mg/dl 163 mg/dl 99 mg/dl White Blood Count 11.35 K/uL Red Blood Count 4.94 M/uL Hemoglobin 14.0 g/dL Hematocrit 45.0 % Mean Corpuscular Volume 91.1 fL Mean Corpuscular Hemoglobin 28.3 pg Mean Corpuscular Hemoglobin Concent 31.1 g/dl RDW Standard Deviation 60.0 fL RDW Coefficient of Variation 17.9 % Platelet Count 112 K/uL Mean Platelet Volume 11.3 fL Platelet Estimate DECREASED Sodium Level 154 mmol/L Potassium Level 3.3 mmol/L Chloride Level 119 mmol/L Carbon Dioxide Level 32 mmol/L Anion Gap 3.0 mmol/L Blood Urea Nitrogen 25 mg/dl Creatinine 0.46 mg/dl Est Creatinine Clear Calc Drug Dose 74.9 ml/min Estimated GFR () 102.9 Estimated GFR (Non- 88.8 BUN/Creatinine Ratio 55.0 Random Glucose 108 mg/dl Calcium Level 9.1 mg/dl Troponin I 0.312 ng/ml Test 02/13/17 11:45 02/13/17 15:23 02/13/17 16:21 Bedside Glucose 116 mg/dl 113 mg/dl Sodium Level 152 mmol/L Potassium Level 3.2 mmol/L Chloride Level 119 mmol/L Carbon Dioxide Level 31 mmol/L Anion Gap 2.0 mmol/L Blood Urea Nitrogen 18 mg/dl Creatinine 0.47 mg/dl Est Creatinine Clear Calc Drug Dose 75.0 ml/min Estimated GFR () 102.2 Estimated GFR (Non- 88.2 BUN/Creatinine Ratio 38.2 Random Glucose 103 mg/dl Calcium Level 9.1 mg/dl Troponin I 0.293 ng/ml Vancomycin Level Trough 11.6 mcg/ml Assessment and Plan Acute Metabolic Encephalopathy 2/2 Dehydration vs Electrolyte Abnormalities vs Infectious: IMPROVING - Patient is non-verbal at baseline and does respond to questions using non- verbal communications; per daughter patient is noted to talk more? Sepsis 2/2 Pansensitive Proteus UTI vs Aspiration Pneumonia/Pneumonitis: - Cefepime 2 g BID and Vancomycin Acute on Chronic Respiratory Failure 2/2 Pneumonia: IMPROVING - Supplemental O2 and CPAP/BiPAP as needed with Duonebs/inhalers - Symbicort BID Severe Hypernatremia: IMPROVING - Switch to LR and continue to trend Na levels - expect for slow correction of Na to prevent complications Elevated Troponin: Likely Demand vs Kidney Related - TRENDING DOWN HTN: - Norvasc 5 mg daily Atrial Fibrillation/AV Dissociation/Sick Sinus Syndrome S/P Pacer: - Pacemaker interrogated and functioning well; Digoxin level low - Digoxin 0.125 mg daily - Metoprolol 25 mg BID and Eliquis 2.5 mg BID Diabetes: A1c 7.2 - Reduced Lantus dosing at this time and SSI Diastolic Congestive Heart Failure/Pulmonary HTN/Severe : - Continue to monitor fluid balance in setting of hydration DVT Prophylaxis: Eliquis Code Status: DO NOT RESUSCITATE Disposition: - Updated daughter Berta today - Palliative care discussed with son MARELY - discussed with Lauryn - please see her note per their discussion - Patient is a resident of [facility] - expect discharge early next week possible Continued [facility] stay due to: multiple IV medications needed Discharge planning: [facility] facility
[2017-02-13] MEDS ORDERED: FENTANYL PATCH REMOVE & WASTE SCH (19:59)
[2017-02-13] MEDS ORDERED: FENTANYL 25 MCG/HR TDSY TD SCH (20:00)
[2017-02-13] MEDS: ACETAMINOPHEN IV 100 ML IV PRN (21:35)
[2017-02-13] MEDS: LATANOPROST 0.005% OP SOLN 2.5 ML BTL OPB SCH (21:36)
[2017-02-13] MEDS: ATORVASTATIN 40 MG TAB PO SCH (21:48)
[2017-02-13] MEDS: SERTRALINE HCL 50 MG TAB PO SCH (21:48)
[2017-02-13] MEDS: INSULIN GLARGINE SOLOSTAR 100 UNITS/ML 3 ML PEN SC SCH (21:52)
[2017-02-14] VITALS (12 sets, daily range): BP systolic 116–149; BP diastolic 56–77; PULSE 63–116; TEMP 36.3–37.2; O2SAT 95–100
[2017-02-14] MEDS: LACTATED RINGER'S 1000ML 1,000 ML IV SCH ×2 (00:30→07:18)
[2017-02-14] MEDS: CEFEPIME IV 2,000 MG in SYRINGE 7.5 ML IV SCH ×3 (01:26→16:43)
[2017-02-14] MEDS: VANCOMYCIN INJ 1,250 MG in SODIUM CHLORIDE 0.9% 250ML 250 ML IV SCH (04:51)
[2017-02-14] MEDS ORDERED: VANCOMYCIN INJ 1,250 MG in SODIUM CHLORIDE 0.9% 250ML 250 ML IV SCH (05:00)
[2017-02-14] MEDS: LEVOTHYROXINE 25 MCG TAB PO SCH (06:00)
[2017-02-14 06:29] LABS: MEAN CORPUSCULAR HGB CONC 30.6 g/dl (32-36)
[2017-02-14] MEDS: INSULIN ASPART 100 UNITS/ML 3 ML PEN SC SCH ×4 (06:30→21:00)
--- NOTE | 2017-02-14 07:06 | DIAGNOSTIC IMAGING REPORT ---
CHEST ONE VIEW PORTABLE CLINICAL HISTORY: Shortness of breath. Evaluate for pneumonia. COMPARISON STUDY: Chest CT November 04, 2016 and chest radiograph February 11, 2017. FINDINGS: A single lead left subclavian pacemaker is unchanged in position. There is no pneumothorax or pleural effusion. Mild left basilar opacity persists. Cardiomediastinal silhouette is stable. IMPRESSION: No change in mild left basilar opacity which could reflect atelectasis or small area of pneumonia. Electronically signed by: Sajan Rust M.D. 02/14/2017 7:05 AM Dictated Date/Time: 02/14/2017 7:03 AM
[2017-02-14] MEDS: ALBUT/IPRATROP 3MG/0.5MG NEB 3 ML VIAL INH SCH ×4 (07:09→18:59)
[2017-02-14 07:12] LABS: BUN/CREATININE RATIO 33.8 (10-20); CREATININE 0.47 mg/dl (0.60-1.20)
[2017-02-14 07:15] LABS: HEMATOCRIT 44.5 % (37-47); MEAN CELL VOLUME 91.2 fL (80-100); MEAN CORPUSCULAR HEMOGLOBIN 27.9 pg (25-34); RED BLOOD COUNT 4.88 M/uL (4.2-5.4)
[2017-02-14] MEDS: CHECK FENTANYL PATCH PLACEMENT SCH ×2 (07:18→16:42)
[2017-02-14] MEDS: BUDESONIDE/FORMOTEROL FUMARATE 160/4.5 60 PUFFS/INHALER INH SCH ×2 (07:18→21:40)
[2017-02-14] MEDS: RANITIDINE HCL 150 MG TAB PO SCH ×2 (07:20→21:43)
[2017-02-14] MEDS: LACTOBACILLUS ACIDOPHILUS (FLORANEX) TAB PO SCH ×2 (07:20→21:42)
[2017-02-14] MEDS: METOPROLOL TARTRATE 25 MG TAB PO SCH ×2 (07:20→21:42)
[2017-02-14] MEDS: APIXABAN 2.5 MG TAB PO SCH ×2 (07:20→21:44)
[2017-02-14] MEDS: AMLODIPINE BESYLATE 5 MG TAB PO SCH (07:21)
[2017-02-14 07:30] LABS: MEAN PLATELET VOLUME 11.8 fL (7.4-10.4); PLATELET COUNT 114 K/uL (130-400); PLT ESTIMATE DECREASED
[2017-02-14] MEDS: POTASSIUM CITRATE 10 MEQ TAB PO SCH (09:53)
[2017-02-14] MEDS: SODIUM CHLOR 0.45% + 20MEQ KCL 1,000 ML IV SCH ×2 (09:53→16:44)
[2017-02-14] MEDS: DIGOXIN 0.125 MG TAB PO SCH (16:44)
[2017-02-14] MEDS: ACETAMINOPHEN IV 100 ML IV PRN (17:53)
--- NOTE | 2017-02-14 17:56 | Pharmacy Progress Note ---
Pharmacy Abx Dose Progress Nt Date of Service Feb 14, 2017. Pharmacy Dosing Scope The patient is currently receiving the following antimicrobial agents per Pharmacy consult: Vancomycin 1,250 mg IV every 24 hours and Cefepime 2 grams IV every 12 hours Objective Height (Feet): 4 Height (Inches): 9.00 Weight (Kilograms): 84.800 Vital Signs (Past 12Hrs) Vital Signs Past 12 Hours Date Time Temp Pulse Resp B/P (MAP) Pulse Ox O2 Delivery O2 Flow Rate FiO2 02/14/17 16:44 98 02/14/17 15:06 77 18 100 Nasal Cannula 3.0 02/14/17 12:00 CPAP 3.0 02/14/17 11:49 36.7 78 18 131/58 (82) 98 Nasal Cannula 2.0 78 02/14/17 11:09 72 18 99 Nasal Cannula 3.0 02/14/17 08:24 36.3 88 18 134/70 (91) 95 Room Air 88 02/14/17 08:00 CPAP 3.0 02/14/17 07:17 36.3 82 20 131/64 (86) 99 BiPAP 3.0 02/14/17 07:09 82 99 3.0 02/14/17 07:09 82 18 99 BiPAP/CPAP 3.0 Lab Results (24Hrs) Item Value Date Time Creatinine 0.91 mg/dl # 02/12/17 0824 Est Creatinine Clear Calc Drug Dose 37.8 ml/min 02/12/17 0824 Estimated GFR () 65.3 02/12/17 0824 Estimated GFR (Non- 56.3 02/12/17 0824 Creatinine 0.47 mg/dl L 02/14/17 0607 Est Creatinine Clear Calc Drug Dose 75.0 ml/min 02/14/17 0607 Estimated GFR () 102.2 02/14/17 0607 Estimated GFR (Non- 88.2 02/14/17 0607 Laboratory Tests (24 Hours) Test 02/14/17 06:07 White Blood Count 11.20 K/uL (4.8-10.8) H Micro Results Date/Time Source Procedure Growth Status 02/11/17 09:16 Blood Blood Culture - Preliminary NO GROWTH TO DATE. Resulted 02/11/17 09:04 Blood Blood Culture - Preliminary NO GROWTH TO DATE. Resulted 02/11/17 21:58 Nasal MRSA DNA Surveillance Screen - Final Specimen Positive for MRSA by DNA Probe Complete 02/11/17 09:30 Urine,Catheterized Urine Culture - Final Proteus Mirabilis Complete Risk Factors for Resistance * Resident in a [facility] or extended-care facility * Hospitalization for 48 hours or more within the past 90 days * Antimicrobial use within the last 90 days [include specific drugs, if known] Assessment & Plan Assessment 87 year old female receiving Vancomycin and Cefepime for treatment of possible UTI and Pneumonia Nasal swab positive for MRSA. Patient's SCr had returned to baseline of 0.47 mg/dl. Day # 5/7 of antimicrobial therapy Plan Vancomycin IV * Trough level of 11.6 mcg/mL reported 02/13/17 @15:23 is subtherapeutic. * Change to Vancomycin 1250 mg IV every 16 hours with 05:00 dose on 02/14/17 * Goal trough level for Pneumonia : 15 to 20 mcg/mL * Trough or random level ordered for: 02/15/17 @12:30 Cefepime Dosing interval changed to Cefepime 2 gram IV q 8hrs secondary to improvement in SCr. Pharmacy will continue to follow and will adjust dose/frequency as necessary. Thank you.
[2017-02-14] MEDS ORDERED: VANCOMYCIN IV SCH (21:00)
[2017-02-14] MEDS ORDERED: DEXTROSE 5% IV SCH (21:00)
--- NOTE | 2017-02-14 21:15 | Progress Note ---
Subjective Date of Service: Feb 14, 2017. Subjective Pt evaluation today including: conversation w/ patient, physical exam, chart review Patient seen at 15:00 87 yo female who is non verbal. She does appear to be smiling. She nods her head when asked if she is feeling well. However, she does not answer other questions that are asked to her. Later in day, patient began having abdominal pain with dark stools. Unable to obtain ROS due to patient being nonverbal. Problem List Medical Problems: (1) Altered mental status Status: Acute (2) CHF (congestive heart failure) Status: Acute (3) CHF (congestive heart failure) Status: Acute (4) COPD (chronic obstructive pulmonary disease) Status: Acute (5) Hypoxia Status: Acute (6) Hypoxia Status: Acute (7) Pneumonia Status: Acute (8) Pulmonary edema Status: Acute (9) Respiratory failure Status: Acute Review of Systems All Other Systems: Reviewed and Negative Medications Current Inpatient Medications Medications (Trade) Dose Ordered Sig/Tariq Route Start Time Stop Time Status Last Admin Dose Admin Al Hydrox/Mg Hydrox/Simethicone (Maalox Max Susp) 15 ml Q4H PRN PO 02/11/17 12:45 03/13/17 12:44 Magnesium Hydroxide (Milk Of Magnesia Susp) 30 ml Q12H PRN PO 02/11/17 12:45 03/13/17 12:44 Zolpidem Tartrate (Ambien Tab) 5 mg HSZ PRN PO 02/11/17 12:45 03/13/17 12:44 Ondansetron HCl (Zofran Inj) 4 mg Q6H PRN IV 02/11/17 12:45 03/13/17 12:44 Polyethylene (Miralax Powder Packet) 17 gm DAILY PRN PO 02/11/17 12:45 03/13/17 12:44 Acetaminophen 100 ml @ 400 mls/hr Q8H PRN IV 02/11/17 12:45 03/13/17 12:44 02/14/17 17:53 400 MLS/HR Insulin Aspart (novoLOG ASPART) SLIDING SCALE G... ACHS SC 02/11/17 16:30 03/13/17 16:29 02/13/17 21:52 2 UNITS Amlodipine Besylate (Norvasc Tab) 5 mg DAILY PO 02/12/17 09:00 03/14/17 08:59 02/15/17 07:29 5 MG Apixaban (Eliquis Tab) 2.5 mg BID PO 02/11/17 21:00 03/13/17 20:59 Future hold 02/15/17 07:28 2.5 MG Atorvastatin Calcium (Lipitor Tab) 40 mg QPM PO 02/11/17 21:00 03/13/17 20:59 Future hold 02/14/17 21:42 40 MG Budesonide/ Formoterol Fumarate (Symbicort 160/ 4.5 Inh) 2 puffs BID INH 02/11/17 21:00 03/13/17 20:59 02/15/17 07:27 2 PUFFS Bumetanide (Bumex Tab) 2.5 mg BID17 PO 02/11/17 17:00 03/13/17 16:59 Future Hold Digoxin (Lanoxin Tab) 0.125 mg DAILY@1600 PO 02/11/17 16:00 03/13/17 15:59 Future hold 02/14/17 16:44 0.125 MG Fentanyl (Duragesic Patch) 25 mcg Q3D@2000 TD 02/13/17 20:00 02/27/17 19:59 02/13/17 21:36 25 MCG Guaifenesin (Mucinex Contr Rel Tab) 1,200 mg Q12 PO 02/11/17 21:00 03/13/17 20:59 Future Hold Insulin Glargine (Lantus Solostar Pen) 28 units QPM SC 02/11/17 21:00 03/13/17 20:59 02/14/17 21:41 28 UNITS Latanoprost (Xalatan Oph Soln) 1 drops HS OPB 02/11/17 21:00 03/13/17 20:59 02/14/17 21:41 1 DROPS Metoprolol Tartrate (Lopressor Tab) 25 mg BID PO 02/11/17 21:00 03/13/17 20:59 Future hold 02/15/17 07:29 25 MG Albuterol/ Ipratropium (Duoneb) 3 ml QIDR INH 02/11/17 16:00 03/13/17 15:59 02/15/17 07:38 3 ML Vancomycin HCl (Consult) 1 ea UD PRN N/A 02/11/17 13:30 03/13/17 13:29 Albuterol/ Ipratropium (Duoneb) 3 ml Q2H PRN INH 02/11/17 14:15 03/13/17 14:14 Cefepime HCl (Consult) 1 ea UD PRN N/A 02/11/17 14:45 03/13/17 14:44 Future Hold Hydralazine HCl (HydrALAZINE INJ) 20 mg Q6 PRN IV. 02/11/17 15:45 03/13/17 15:44 Bumetanide 1 mg/ Syringe 4 ml @ 4 mls/min BID@0900,1700 IV 02/11/17 17:00 03/13/17 16:59 Future Hold 02/11/17 17:05 4 MLS/MIN Miscellaneous (Fentanyl Patch Remove & Waste) 1 ea Q3D@1959 N/A 02/13/17 19:59 03/15/17 19:58 02/13/17 21:53 1 EA Miscellaneous Information (Check Fentanyl Patch Placement) 1 ea QS N/A 02/12/17 08:00 03/14/17 07:59 02/15/17 07:27 1 EA Lactobacillus Acidophilus (Floranex Tab) 1 tab BID PO 02/12/17 21:00 03/14/17 20:59 02/15/17 07:28 1 TAB Levothyroxine Sodium (Synthroid Tab) 25 mcg Q2D@0600 PO 02/12/17 17:00 03/14/17 16:59 02/12/17 18:35 25 MCG Ranitidine HCl (zANTac TAB) 150 mg BID PO 02/12/17 21:00 03/14/17 20:59 02/15/17 07:29 150 MG Sertraline HCl (Zoloft Tab) 50 mg HS PO 02/13/17 21:00 03/15/17 20:59 02/14/17 21:43 50 MG Cefepime HCl 2000 mg/Syringe 20 ml @ 5 mls/min Q8H IV 02/14/17 01:00 02/18/17 00:59 Future Hold 02/15/17 01:13 5 MLS/MIN Vancomycin HCl 1250 mg/Sodium Chloride 275 ml @ 125 mls/hr Q16H IV 02/14/17 05:00 12/13/17 04:59 Future hold 02/14/17 04:51 125 MLS/HR Potassium Chloride/Sodium Chloride 1,000 ml @ 125 mls/hr Q8H IV 02/14/17 10:15 03/16/17 10:14 02/15/17 03:33 125 MLS/HR Potassium Citrate (Urocit-K Tab) 40 meq QAM PO 02/14/17 09:00 03/16/17 08:59 02/15/17 07:27 40 MEQ Vancomycin HCl (Vancomycin Oral Soln) 125 mg QID PO 02/14/17 21:00 02/28/17 20:59 02/15/17 07:28 125 MG Raspberry (Raspberry Syrup 5ml Cup) 5 ml QID PO 02/14/17 21:00 02/28/17 20:59 02/15/17 07:27 5 ML Objective Vital Signs Date Time Temp Pulse Resp B/P (MAP) Pulse Ox O2 Delivery O2 Flow Rate FiO2 02/14/17 20:08 98 Nasal Cannula 3.0 02/14/17 19:58 36.6 116 20 116/56 (76) 100 3.0 02/14/17 19:01 76 16 100 Nasal Cannula 3.0 02/14/17 16:44 98 02/14/17 16:01 98 Nasal Cannula 3.0 02/14/17 15:06 77 18 100 Nasal Cannula 3.0 02/14/17 12:00 CPAP 3.0 02/14/17 11:49 36.7 78 18 131/58 (82) 98 Nasal Cannula 2.0 78 02/14/17 11:09 72 18 99 Nasal Cannula 3.0 02/14/17 08:24 36.3 88 18 134/70 (91) 95 Room Air 88 02/14/17 08:00 CPAP 3.0 02/14/17 07:17 36.3 82 20 131/64 (86) 99 BiPAP 3.0 02/14/17 07:09 82 99 3.0 02/14/17 07:09 82 18 99 BiPAP/CPAP 3.0 02/14/17 04:00 37.0 63 16 144/77 (99) 99 CPAP 3.0 02/14/17 04:00 CPAP 3.0 02/14/17 00:00 37.2 104 20 149/74 (99) 97 CPAP 02/14/17 00:00 CPAP 3.0 02/13/17 22:26 82 65 Physical Exam Comments: General Appearance: no apparent distress, + obese Eyes: sclerae normal Neck: supple, no JVD, trachea midline Respiratory/Chest: lungs clear, no respiratory distress, no accessory muscle use Cardiovascular: regular rate, rhythm, + systolic murmur Abdomen: normal bowel sounds, non tender, soft Neurologic/Psychiatric: alert, more animated and smiling today Skin: normal color, warm/dry Laboratory Results Last 24 Hours Test 02/14/17 06:07 02/14/17 07:48 02/14/17 12:07 02/14/17 16:40 White Blood Count 11.20 K/uL Red Blood Count 4.88 M/uL Hemoglobin 13.6 g/dL Hematocrit 44.5 % Mean Corpuscular Volume 91.2 fL Mean Corpuscular Hemoglobin 27.9 pg Mean Corpuscular Hemoglobin Concent 30.6 g/dl RDW Standard Deviation 59.3 fL RDW Coefficient of Variation 17.8 % Platelet Count 114 K/uL Mean Platelet Volume 11.8 fL Platelet Estimate DECREASED Sodium Level 156 mmol/L Potassium Level 3.0 mmol/L Chloride Level 120 mmol/L Carbon Dioxide Level 32 mmol/L Anion Gap 3.0 mmol/L Blood Urea Nitrogen 16 mg/dl Creatinine 0.47 mg/dl Est Creatinine Clear Calc Drug Dose 75.0 ml/min Estimated GFR () 102.2 Estimated GFR (Non- 88.2 BUN/Creatinine Ratio 33.8 Random Glucose 51 mg/dl Calcium Level 9.0 mg/dl Bedside Glucose 115 mg/dl 104 mg/dl 106 mg/dl Test 02/14/17 17:35 02/14/17 20:13 Stool Occult Blood NEGATIVE Bedside Glucose 102 mg/dl Assessment and Plan Assessment and Plan Acute Metabolic Encephalopathy 2/2 Dehydration vs Electrolyte Abnormalities vs Infectious: - Patient is non-verbal at baseline and does respond to questions using non- verbal communications; -Patient has been waxing and waning. Today appears to be a good day for patient. Sepsis 2/2 Pansensitive Proteus UTI vs Aspiration Pneumonia/Pneumonitis: - Cefepime 2 g BID and Vancomycin -will continue New onset abd. pain with diarrhea. -C. diff positive -cont. contact precautions. -will place on oral vancomycin Acute on Chronic Respiratory Failure 2/2 Pneumonia: IMPROVING - Supplemental O2 and CPAP/BiPAP as needed with Duonebs/inhalers - Symbicort BID Hypernatremia: - Switched to LR with no siginificant improvement. -will change to 1/2 NSS -continue to trend Na levels - expect for slow correction of Na to prevent complications Elevated Troponin: Likely Demand vs Kidney Related - TRENDING DOWN HTN: - Norvasc 5 mg daily Atrial Fibrillation/AV Dissociation/Sick Sinus Syndrome S/P Pacer: - Pacemaker interrogated and functioning well; Digoxin level low - Digoxin 0.125 mg daily - Metoprolol 25 mg BID and Eliquis 2.5 mg BID Diabetes: A1c 7.2 - Reduced Lantus dosing at this time and SSI Diastolic Congestive Heart Failure/Pulmonary HTN/Severe : - Continue to monitor fluid balance in setting of hydration DVT Prophylaxis: Eliquis Code Status: DO NOT RESUSCITATE Disposition: - -On a family level, it appears that the son and daughter are on 2 different views in regards to her health. -Son shows understanding that she is gradually deteriorating over the course of the year given her multiple readmissions and comorbididtes. -Daughter does not appear to be understanding this as of yet. Will await for son to talk to his sister as noted in the palliative care consult note - Palliative care discussed with son MARELY - discussed with Lauryn - please see her note per their discussion - Patient is a resident of [facility] - expect discharge early next week possible Continued [facility] stay due to: multiple IV medications needed Discharge planning: jail facility Continued [facility] stay due to: multiple IV medications needed Discharge planning: jail facility
[2017-02-14] MEDS: RASPBERRY SYRUP 5 ML UDP PO SCH (21:39)
[2017-02-14] MEDS: VANCOMYCIN HCL 125 MG/2.5ML SOLN PO SCH (21:39)
[2017-02-14] MEDS: LATANOPROST 0.005% OP SOLN 2.5 ML BTL OPB SCH (21:41)
[2017-02-14] MEDS: INSULIN GLARGINE SOLOSTAR 100 UNITS/ML 3 ML PEN SC SCH (21:41)
[2017-02-14] MEDS: ATORVASTATIN 40 MG TAB PO SCH (21:42)
[2017-02-14] MEDS: SERTRALINE HCL 50 MG TAB PO SCH (21:43)
[2017-02-15] VITALS (11 sets, daily range): BP systolic 97–151; BP diastolic 44–78; PULSE 55–92; TEMP 36.6–37.2; O2SAT 91–100
[2017-02-15] MEDS: CHECK FENTANYL PATCH PLACEMENT SCH ×3 (00:22→15:49)
[2017-02-15] MEDS: CEFEPIME IV 2,000 MG in SYRINGE 7.5 ML IV SCH ×2 (01:13→16:14)
[2017-02-15] MEDS: SODIUM CHLOR 0.45% + 20MEQ KCL 1,000 ML IV SCH ×3 (03:33→20:14)
[2017-02-15] MEDS: INSULIN ASPART 100 UNITS/ML 3 ML PEN SC SCH ×4 (06:30→21:00)
[2017-02-15 06:32] LABS: MEAN CORPUSCULAR HGB CONC 30.4 g/dl (32-36)
[2017-02-15 06:49] LABS: HEMATOCRIT 40.8 % (37-47); MEAN CELL VOLUME 90.9 fL (80-100); MEAN CORPUSCULAR HEMOGLOBIN 27.6 pg (25-34); RED BLOOD COUNT 4.49 M/uL (4.2-5.4); WHITE BLOOD COUNT 10.86 K/uL (4.8-10.8)
[2017-02-15 06:56] LABS: MEAN PLATELET VOLUME 11.9 fL (7.4-10.4); PLATELET COUNT 106 K/uL (130-400); PLT ESTIMATE DECREASED
[2017-02-15 07:15] LABS: BUN/CREATININE RATIO 37.8 (10-20); CALCIUM 8.5 mg/dl (8.5-10.1); CREATININE 0.27 mg/dl (0.60-1.20); POTASSIUM 3.5 mmol/L (3.5-5.1)
[2017-02-15] MEDS: BUDESONIDE/FORMOTEROL FUMARATE 160/4.5 60 PUFFS/INHALER INH SCH ×2 (07:27→20:14)
[2017-02-15] MEDS: POTASSIUM CITRATE 10 MEQ TAB PO SCH (07:27)
[2017-02-15] MEDS: RASPBERRY SYRUP 5 ML UDP PO SCH ×4 (07:27→20:13)
[2017-02-15] MEDS: APIXABAN 2.5 MG TAB PO SCH ×2 (07:28→20:15)
[2017-02-15] MEDS: VANCOMYCIN HCL 125 MG/2.5ML SOLN PO SCH ×4 (07:28→20:12)
[2017-02-15] MEDS: LACTOBACILLUS ACIDOPHILUS (FLORANEX) TAB PO SCH ×2 (07:28→20:16)
[2017-02-15] MEDS: RANITIDINE HCL 150 MG TAB PO SCH ×2 (07:29→20:17)
[2017-02-15] MEDS: AMLODIPINE BESYLATE 5 MG TAB PO SCH (07:29)
[2017-02-15] MEDS: METOPROLOL TARTRATE 25 MG TAB PO SCH ×2 (07:29→20:17)
[2017-02-15] MEDS: ALBUT/IPRATROP 3MG/0.5MG NEB 3 ML VIAL INH SCH ×4 (07:38→19:24)
[2017-02-15] MEDS ORDERED: VANCOMYCIN TROUGH ONE (12:30)
[2017-02-15] MEDS: VANCOMYCIN INJ 1,250 MG in SODIUM CHLORIDE 0.9% 250ML 250 ML IV SCH (13:23)
--- NOTE | 2017-02-15 15:20 | Progress Note ---
Subjective Date of Service: Feb 15, 2017. Subjective Pt evaluation today including: conversation w/ patient, physical exam, chart review, lab review Patient appears to be resting comfortably. When asked if she has any pain, she looks surprised and then smiles. Nurse states that she still has loose stools and dark in color. Nurse states they were heme occult negative. Problem List Medical Problems: (1) Altered mental status Status: Acute (2) CHF (congestive heart failure) Status: Acute (3) CHF (congestive heart failure) Status: Acute (4) COPD (chronic obstructive pulmonary disease) Status: Acute (5) Hypoxia Status: Acute (6) Hypoxia Status: Acute (7) Pneumonia Status: Acute (8) Pulmonary edema Status: Acute (9) Respiratory failure Status: Acute Review of Systems All Other Systems: Reviewed and Negative Medications Current Inpatient Medications Medications (Trade) Dose Ordered Sig/Tariq Route Start Time Stop Time Status Last Admin Dose Admin Al Hydrox/Mg Hydrox/Simethicone (Maalox Max Susp) 15 ml Q4H PRN PO 02/11/17 12:45 03/13/17 12:44 Magnesium Hydroxide (Milk Of Magnesia Susp) 30 ml Q12H PRN PO 02/11/17 12:45 03/13/17 12:44 Zolpidem Tartrate (Ambien Tab) 5 mg HSZ PRN PO 02/11/17 12:45 03/13/17 12:44 Ondansetron HCl (Zofran Inj) 4 mg Q6H PRN IV 02/11/17 12:45 03/13/17 12:44 Polyethylene (Miralax Powder Packet) 17 gm DAILY PRN PO 02/11/17 12:45 03/13/17 12:44 Acetaminophen 100 ml @ 400 mls/hr Q8H PRN IV 02/11/17 12:45 03/13/17 12:44 02/14/17 17:53 400 MLS/HR Insulin Aspart (novoLOG ASPART) SLIDING SCALE G... ACHS SC 02/11/17 16:30 03/13/17 16:29 02/13/17 21:52 2 UNITS Amlodipine Besylate (Norvasc Tab) 5 mg DAILY PO 02/12/17 09:00 03/14/17 08:59 02/15/17 07:29 5 MG Apixaban (Eliquis Tab) 2.5 mg BID PO 02/11/17 21:00 03/13/17 20:59 Future hold 02/15/17 20:15 2.5 MG Atorvastatin Calcium (Lipitor Tab) 40 mg QPM PO 02/11/17 21:00 03/13/17 20:59 Future hold 02/15/17 20:16 40 MG Budesonide/ Formoterol Fumarate (Symbicort 160/ 4.5 Inh) 2 puffs BID INH 02/11/17 21:00 03/13/17 20:59 02/15/17 20:14 2 PUFFS Bumetanide (Bumex Tab) 2.5 mg BID17 PO 02/11/17 17:00 03/13/17 16:59 Future Hold Digoxin (Lanoxin Tab) 0.125 mg DAILY@1600 PO 02/11/17 16:00 03/13/17 15:59 Future hold 02/15/17 15:48 0.125 MG Fentanyl (Duragesic Patch) 25 mcg Q3D@2000 TD 02/13/17 20:00 02/27/17 19:59 02/13/17 21:36 25 MCG Guaifenesin (Mucinex Contr Rel Tab) 1,200 mg Q12 PO 02/11/17 21:00 03/13/17 20:59 Future Hold Insulin Glargine (Lantus Solostar Pen) 28 units QPM SC 02/11/17 21:00 03/13/17 20:59 02/15/17 21:08 28 UNITS Latanoprost (Xalatan Oph Soln) 1 drops HS OPB 02/11/17 21:00 03/13/17 20:59 02/15/17 20:15 1 DROPS Metoprolol Tartrate (Lopressor Tab) 25 mg BID PO 02/11/17 21:00 03/13/17 20:59 Future hold 02/15/17 20:17 25 MG Albuterol/ Ipratropium (Duoneb) 3 ml QIDR INH 02/11/17 16:00 03/13/17 15:59 02/15/17 19:24 3 ML Vancomycin HCl (Consult) 1 ea UD PRN N/A 02/11/17 13:30 03/13/17 13:29 Albuterol/ Ipratropium (Duoneb) 3 ml Q2H PRN INH 02/11/17 14:15 03/13/17 14:14 Cefepime HCl (Consult) 1 ea UD PRN N/A 02/11/17 14:45 03/13/17 14:44 Future Hold Hydralazine HCl (HydrALAZINE INJ) 20 mg Q6 PRN IV. 02/11/17 15:45 03/13/17 15:44 Bumetanide 1 mg/ Syringe 4 ml @ 4 mls/min BID@0900,1700 IV 02/11/17 17:00 03/13/17 16:59 Future Hold 02/11/17 17:05 4 MLS/MIN Miscellaneous (Fentanyl Patch Remove & Waste) 1 ea Q3D@1959 N/A 02/13/17 19:59 03/15/17 19:58 02/13/17 21:53 1 EA Miscellaneous Information (Check Fentanyl Patch Placement) 1 ea QS N/A 02/12/17 08:00 03/14/17 07:59 02/16/17 00:03 1 EA Lactobacillus Acidophilus (Floranex Tab) 1 tab BID PO 02/12/17 21:00 03/14/17 20:59 02/15/17 20:16 1 TAB Levothyroxine Sodium (Synthroid Tab) 25 mcg Q2D@0600 PO 02/12/17 17:00 03/14/17 16:59 02/16/17 06:26 25 MCG Ranitidine HCl (zANTac TAB) 150 mg BID PO 02/12/17 21:00 03/14/17 20:59 02/15/17 20:17 150 MG Sertraline HCl (Zoloft Tab) 50 mg HS PO 02/13/17 21:00 03/15/17 20:59 02/15/17 20:18 50 MG Vancomycin HCl 1250 mg/Sodium Chloride 275 ml @ 125 mls/hr Q16H IV 02/14/17 05:00 02/18/17 04:59 Future hold 02/16/17 04:51 125 MLS/HR Potassium Chloride/Sodium Chloride 1,000 ml @ 125 mls/hr Q8H IV 02/14/17 10:15 03/16/17 10:14 02/16/17 04:24 125 MLS/HR Potassium Citrate (Urocit-K Tab) 40 meq QAM PO 02/14/17 09:00 03/16/17 08:59 02/15/17 07:27 40 MEQ Vancomycin HCl (Vancomycin Oral Soln) 125 mg QID PO 02/14/17 21:00 02/28/17 20:59 02/15/17 20:12 125 MG Raspberry (Raspberry Syrup 5ml Cup) 5 ml QID PO 02/14/17 21:00 02/28/17 20:59 02/15/17 20:13 5 ML Cefepime HCl 2000 mg/Syringe 20 ml @ 5 mls/min Q8H IV 02/15/17 15:30 02/16/17 23:29 02/16/17 00:02 5 MLS/MIN Objective Vital Signs Date Time Temp Pulse Resp B/P (MAP) Pulse Ox O2 Delivery O2 Flow Rate FiO2 02/15/17 15:18 36.8 92 18 108/69 (82) 100 Nasal Cannula 4.0 02/15/17 14:45 65 16 98 Nasal Cannula 3.0 02/15/17 11:28 66 16 91 Room Air 02/15/17 11:25 36.8 69 18 142/65 (90) 95 Nasal Cannula 2.0 02/15/17 08:00 Nasal Cannula 3.0 02/15/17 07:57 36.9 79 18 151/60 (90) 98 Nasal Cannula 2.0 02/15/17 07:38 67 16 98 Nasal Cannula 3.0 02/15/17 05:35 36.6 55 20 145/73 (97) 96 3.0 02/15/17 04:00 Nasal Cannula 3.0 02/15/17 00:50 37.2 71 18 97/62 (74) 96 3.0 02/15/17 00:00 Nasal Cannula 3.0 02/14/17 20:08 98 Nasal Cannula 3.0 02/14/17 19:58 36.6 116 20 116/56 (76) 100 3.0 02/14/17 19:01 76 16 100 Nasal Cannula 3.0 02/14/17 16:44 98 02/14/17 16:01 98 Nasal Cannula 3.0 Physical Exam Comments: General Appearance: no apparent distress, + obese Eyes: sclerae normal Neck: supple, no JVD, trachea midline Respiratory/Chest: lungs clear, no respiratory distress, no accessory muscle use Cardiovascular: regular rate, rhythm, + systolic murmur Abdomen: normal bowel sounds, non tender, soft Neurologic/Psychiatric: alert, more animated and smiling today Skin: normal color, warm/dry Laboratory Results Last 24 Hours Test 02/14/17 16:40 02/14/17 17:35 02/14/17 20:13 02/15/17 06:01 Bedside Glucose 106 mg/dl 102 mg/dl Stool Occult Blood NEGATIVE White Blood Count 10.86 K/uL Red Blood Count 4.49 M/uL Hemoglobin 12.4 g/dL Hematocrit 40.8 % Mean Corpuscular Volume 90.9 fL Mean Corpuscular Hemoglobin 27.6 pg Mean Corpuscular Hemoglobin Concent 30.4 g/dl RDW Standard Deviation 57.5 fL RDW Coefficient of Variation 17.3 % Platelet Count 106 K/uL Mean Platelet Volume 11.9 fL Platelet Estimate DECREASED Sodium Level 146 mmol/L Potassium Level 3.5 mmol/L Chloride Level 116 mmol/L Carbon Dioxide Level 29 mmol/L Anion Gap 1.0 mmol/L Blood Urea Nitrogen 10 mg/dl Creatinine 0.27 mg/dl Est Creatinine Clear Calc Drug Dose 130.3 ml/min Estimated GFR () 122.7 Estimated GFR (Non- 105.8 BUN/Creatinine Ratio 37.8 Random Glucose 59 mg/dl Calcium Level 8.5 mg/dl Magnesium Level 2.1 mg/dl Test 02/15/17 07:41 02/15/17 08:00 02/15/17 08:13 02/15/17 11:33 Bedside Glucose 63 mg/dl 66 mg/dl 84 mg/dl 82 mg/dl Test 02/15/17 12:15 Vancomycin Level Trough 17.0 mcg/ml Assessment and Plan Acute Metabolic Encephalopathy 2/2 Dehydration vs Electrolyte Abnormalities vs Infectious: - Patient is non-verbal at baseline and does respond to questions using non- verbal communications; -Patient has been waxing and waning. Today appears to be a good day for patient. Sepsis 2/2 Pansensitive Proteus UTI vs Aspiration Pneumonia/Pneumonitis: - Cefepime 2 g BID and Vancomycin -will continue cefepime for a 5 day course for UTI. -May consider continuing for 2 more days for possible asp. pneumonia, however, do not see a consolidation in the lungs New onset abd. pain with diarrhea. -C. diff positive -cont. contact precautions. -will place on oral vancomycin Acute on Chronic Respiratory Failure 2/2 Pneumonia: IMPROVING - Supplemental O2 and CPAP/BiPAP as needed with Duonebs/inhalers - Symbicort BID Hypernatremia: - Initially Switched to LR with no siginificant improvement. -then changed to 1/2 NSS. -continue to trend Na levels - expect for slow correction of Na to prevent complications Elevated Troponin: Likely Demand vs Kidney Related - TRENDING DOWN HTN: - Norvasc 5 mg daily Atrial Fibrillation/AV Dissociation/Sick Sinus Syndrome S/P Pacer: - Pacemaker interrogated and functioning well; Digoxin level low - Digoxin 0.125 mg daily - Metoprolol 25 mg BID and Eliquis 2.5 mg BID Diabetes: A1c 7.2 - Reduced Lantus dosing at this time and SSI Diastolic Congestive Heart Failure/Pulmonary HTN/Severe : - Continue to monitor fluid balance in setting of hydration DVT Prophylaxis: Eliquis Code Status: DO NOT RESUSCITATE Disposition: - -On a family level, it appears that the son and daughter are on 2 different views in regards to her health. -Son shows understanding that she is gradually deteriorating over the course of the year given her multiple readmissions and comorbididtes. -Daughter does not appear to be understanding this as of yet. Will await for son to talk to his sister as noted in the palliative care consult note - Palliative care discussed with charlene YAP - discussed with Lauryn - please see her note per their discussion - Patient is a resident of [facility] - expect discharge early next week possible Continued [facility] stay due to: multiple IV medications needed [facility]charge planning[facility] facility Continued [facility] stay due to: multiple IV medications needed Discharge planning: [facility] facility
--- NOTE | 2017-02-15 15:45 | Pharmacy Progress Note ---
Pharmacy Abx Dose Progress Nt Date of Service Feb 15, 2017. Pharmacy Dosing Scope The patient is currently receiving the following antimicrobial agents per Pharmacy consult: Vancomycin 1,250 mg IV every 16 hours and Cefepime 2 grams IV q 8 hours Objective Height (Feet): 4 Height (Inches): 9.00 Weight (Kilograms): 85.300 Vital Signs (Past 12Hrs) Vital Signs Past 12 Hours Date Time Temp Pulse Resp B/P (MAP) Pulse Ox O2 Delivery O2 Flow Rate FiO2 02/15/17 15:18 36.8 92 18 108/69 (82) 100 Nasal Cannula 4.0 02/15/17 14:45 65 16 98 Nasal Cannula 3.0 02/15/17 11:28 66 16 91 Room Air 02/15/17 11:25 36.8 69 18 142/65 (90) 95 Nasal Cannula 2.0 02/15/17 08:00 Nasal Cannula 3.0 02/15/17 07:57 36.9 79 18 151/60 (90) 98 Nasal Cannula 2.0 02/15/17 07:38 67 16 98 Nasal Cannula 3.0 02/15/17 05:35 36.6 55 20 145/73 (97) 96 3.0 02/15/17 04:00 Nasal Cannula 3.0 Lab Results (24Hrs) Item Value Date Time Creatinine 0.27 mg/dl L 02/15/17 0601 Est Creatinine Clear Calc Drug Dose 130.3 ml/min 02/15/17 0601 Estimated GFR () 122.7 02/15/17 0601 Estimated GFR (Non- 105.8 02/15/17 0601 Laboratory Tests (24 Hours) Test 02/15/17 06:01 White Blood Count 10.86 K/uL (4.8-10.8) H Micro Results Date/Time Source Procedure Growth Status 02/11/17 09:16 Blood Blood Culture - Preliminary NO GROWTH TO DATE. Resulted 02/11/17 09:04 Blood Blood Culture - Preliminary NO GROWTH TO DATE. Resulted 02/11/17 21:58 Nasal MRSA DNA Surveillance Screen - Final Specimen Positive for MRSA by DNA Probe Complete 02/14/17 17:55 Stool C.difficile Toxin B Gene (PCR) - Final Positive for C. difficile toxin B gene Complete 02/11/17 09:30 Urine,Catheterized Urine Culture - Final Proteus Mirabilis Complete Risk Factors for Resistance * Resident in a [place] [facility] facility or extended-care facility * Hospitalization for 48 hours or more within the past 90 days * Current hospitalization > 5 days * History of infection with a multidrug-resistant organism: * Antimicrobial use within the last 90 days Assessment & Plan Assessment 87 year old female receiving Vancomycin 1250 mg IV q16 hours and Cefepime 2 grams IV q 8 hours for treatment of Pneumonia and UTI Pansensitive Proteus Day # 07/16 of antimicrobial therapy Patient has a positive stool for C diff started on po vancomycin. As per discussion with Dr Rucker will continue Cefepime for one additional day to give 5 days therapy for UTI and Vancomycin to continue for 7 days for Pulmonary sourc Plan Vancomycin IV * Trough level of 17 mcg/mL is therapeutic 02/15/17 @12:15 which was 45 minutes prior to the next dose. * Continue dose of 1,250 mg IV every 16 hours * Goal trough level for Pneumonia : 15 to 20 mcg/mL Would only obtain additional trough levels if a change in renal function or therapy extended beyond 7 days. Pharmacy will continue to follow and will adjust dose/frequency as necessary. Thank you.
[2017-02-15] MEDS: DIGOXIN 0.125 MG TAB PO SCH (15:48)
[2017-02-15] MEDS: LATANOPROST 0.005% OP SOLN 2.5 ML BTL OPB SCH (20:15)
[2017-02-15] MEDS: ATORVASTATIN 40 MG TAB PO SCH (20:16)
[2017-02-15] MEDS: SERTRALINE HCL 50 MG TAB PO SCH (20:18)
[2017-02-15] MEDS: INSULIN GLARGINE SOLOSTAR 100 UNITS/ML 3 ML PEN SC SCH (21:08)
[2017-02-16] VITALS (9 sets, daily range): BP systolic 105–150; BP diastolic 63–73; PULSE 65–87; TEMP 36.4–37; O2SAT 85–100
[2017-02-16] MEDS: CEFEPIME IV 2,000 MG in SYRINGE 7.5 ML IV SCH ×2 (00:02→07:23)
[2017-02-16] MEDS: CHECK FENTANYL PATCH PLACEMENT SCH ×2 (00:03→07:23)
[2017-02-16] MEDS: SODIUM CHLOR 0.45% + 20MEQ KCL 1,000 ML IV SCH (04:24)
[2017-02-16] MEDS: VANCOMYCIN INJ 1,250 MG in SODIUM CHLORIDE 0.9% 250ML 250 ML IV SCH (04:51)
[2017-02-16 05:54] LABS: MEAN CORPUSCULAR HGB CONC 30.7 g/dl (32-36)
[2017-02-16 06:24] LABS: HEMATOCRIT 41.4 % (37-47); MEAN CELL VOLUME 89.4 fL (80-100); MEAN CORPUSCULAR HEMOGLOBIN 27.4 pg (25-34); RED BLOOD COUNT 4.63 M/uL (4.2-5.4); WHITE BLOOD COUNT 10.47 K/uL (4.8-10.8)
[2017-02-16] MEDS: LEVOTHYROXINE 25 MCG TAB PO SCH (06:26)
[2017-02-16] MEDS: INSULIN ASPART 100 UNITS/ML 3 ML PEN SC SCH ×2 (06:30→11:00)
[2017-02-16 06:42] LABS: BUN/CREATININE RATIO 27.1 (10-20); CALCIUM 8.3 mg/dl (8.5-10.1); CREATININE 0.24 mg/dl (0.60-1.20); POTASSIUM 3.6 mmol/L (3.5-5.1)
[2017-02-16 06:44] LABS: MEAN PLATELET VOLUME 11.2 fL (7.4-10.4); PLATELET COUNT 113 K/uL (130-400); PLT ESTIMATE DECREASED
[2017-02-16] MEDS: VANCOMYCIN HCL 125 MG/2.5ML SOLN PO SCH (07:21)
[2017-02-16] MEDS: RASPBERRY SYRUP 5 ML UDP PO SCH (07:22)
[2017-02-16] MEDS: BUDESONIDE/FORMOTEROL FUMARATE 160/4.5 60 PUFFS/INHALER INH SCH (07:22)
[2017-02-16] MEDS: RANITIDINE HCL 150 MG TAB PO SCH (07:22)
[2017-02-16] MEDS: POTASSIUM CITRATE 10 MEQ TAB PO SCH (07:23)
[2017-02-16] MEDS: METOPROLOL TARTRATE 25 MG TAB PO SCH (07:23)
[2017-02-16] MEDS: LACTOBACILLUS ACIDOPHILUS (FLORANEX) TAB PO SCH (07:24)
[2017-02-16] MEDS: AMLODIPINE BESYLATE 5 MG TAB PO SCH (07:24)
[2017-02-16] MEDS: APIXABAN 2.5 MG TAB PO SCH (07:24)
[2017-02-16] MEDS: ALBUT/IPRATROP 3MG/0.5MG NEB 3 ML VIAL INH SCH ×2 (07:42→11:42)
[2017-02-16] MEDS ORDERED: INSDGIPEN SC (09:54)
[2017-02-16] MEDS ORDERED: CEFD300C3 PO (09:54)
[2017-02-16] MEDS ORDERED: VANC5CAP PO (09:54)
--- NOTE | 2017-02-16 10:02 | Discharge Instructions ---
Discharge Instructions Date of Service Feb 16, 2017. Admission Reason for Admission: Pna, Uti, Hypernatremia Discharge Discharge Diagnosis / Problem: Pneumonia vs UTI with Hypernatremia Discharge Goals Goal(s): Decrease discomfort, Improve function, Increase independence Activity Recommendations Activity Level: Assistance Required . Additional Information Patient informed of condition: Yes Advance Directives: Yes DNR: Yes Level of Care: Skilled Communicable Disease: Yes (C. Diff) Prognosis: Improving Instructions / Follow-Up Instructions / Follow-Up Acute Metabolic Encephalopathy 2/2 Dehydration vs Electrolyte Abnormalities vs Infectious: RESOLVED - Initially presented as obtunded and progressed to alert but non-verbal; currently verbalizing needs - at baseline Sepsis 2/2 Pansensitive Proteus UTI with Question of Aspiration Pneumonia/ Pneumonitis: - Complete treatment with Cefdinir 300 mg BID - had dose this AM and will need one dose this evening then twice a day tomorrow Acute C. Diff: STABLE - Unfortunately developed C. diff during hospitalization and was placed on Vancomycin - Will prescribed Vancomycin 125 mg QID x 14 days total - Continue C. Diff contact precautions - Recommend to hold diuretics if continues to have excessive diarrhea and appearing volume depleted - currently +5 L since admission Acute on Chronic Respiratory Failure 2/2 Pneumonia: RESOLVED - Supplemental O2 and CPAP/BiPAP as needed with Duonebs/inhalers - continue previously prescribed medications Hypernatremia: RESOLVED - Upon admission was at 157 and extremely dry on examination - currently at 145 Elevated Troponin: Likely Demand vs Kidney Related - TRENDING DOWN Atrial Fibrillation/AV Dissociation/Sick Sinus Syndrome S/P Pacer: STABLE - Pacemaker interrogated and functioning well; Digoxin level low - Digoxin 0.125 mg daily - Metoprolol 25 mg BID and Eliquis 2.5 mg BID Diabetes with Hypoglycemia: A1c 7.2 - This will need to be continued to be monitored as hypoglycemia more worrisome than running high in the long-term effects; - Reduced Lantus to 22 units at HS and may need to reduce more Diastolic Congestive Heart Failure/Pulmonary HTN/Severe : STABLE - Positive 5 L since admission but appears compensated; no pulmonary congestion of CXR; largely appears dry - Recommend to possibly hold Bumex pending amount of diarrhea and to continue monitoring fluid balance Code Status: DO NOT RESUSCITATE Current Hospital Diet Patient's current hospital diet: Diabetes Type 2 Diet Discharge Diet Recommended Diet: Diabetes Type 2 Diet Pending Studies Studies pending at discharge: no Laboratory Results Hemoglobin A1c Test 02/12/17 08:40 Range/Units Estimated Average Glucose 160 mg/dl Hemoglobin A1c 7.2 H 4.5-5.6 % Lipid Panel Test 01/21/17 05:00 Range/Units Triglycerides Level 62 0-150 mg/dl Cholesterol Level 97 0-200 mg/dl HDL Cholesterol 44 mg/dl Cholesterol/HDL Ratio 2.2 LDL Cholesterol, Calculated 41 mg/dl Medical Emergencies . Who to Call and When: Medical Emergencies: If at any time you feel your situation is an emergency, please call 911 immediately. . Non-Emergent Contact Non-Emergency issues call your: Primary Care Provider Call Non-Emergent contact if: you have a fever, your pain is concerning you, you have any medication questions . . "Provider Documentation" section prepared by Yanira Mayberry. . Core Measure Problem Core Measures: None
--- NOTE | 2017-02-16 13:37 | Discharge Summary ---
Discharge Summary Date of Service Feb 16, 2017. Discharge Summary Admission Date: Feb 11, 2017 at 12:40 Discharge Date: Feb 16, 2017 Discharge Disposition: [facility] facility Principal Diagnosis: Sepsis from UTI vs PNA; C. Diff Problems/Secondary Diagnoses: 1. Atrial Fibrillation/ AV Dissociation/ AV Block - S/P Pacer 2. CKD Stage II 3. Chronic Respiratory Failure 2/2 COPD - Chronic Supplemental O2 4. T2DM 5. HLD 6. HTN 7. Peripheral Vascular Disease 8. RLE AKA Immunizations: Have You Had Influenza Vaccine: No Influenza Vaccine Date: Jun 01, 2011 History of Tetanus Vaccine?: utd History of Pneumococcal: Yes Pneumococcal Date: Sep 02, 2012 History of Hepatitis B Vaccine: No Procedures: CHEST ONE VIEW PORTABLE FINDINGS: A single lead left subclavian pacemaker is unchanged in position. There is no pneumothorax or pleural effusion. Mild left basilar opacity persists. Cardiomediastinal silhouette is stable. IMPRESSION: No change in mild left basilar opacity which could reflect atelectasis or small area of pneumonia. Consultations: 1. Cardiology 2. Palliative Medication Reconciliation New Medications: Vancomycin Hcl (Vancomycin) 125 Mg Cap 125 MG PO QID, #50 TABS Cefdinir (Cefdinir) 300 Mg Cap 300 MG PO BID, #3 CAP Take one dose tonight on 02/16 then twice a day on 02/17 Changed Medications: Insulin Glargine (Lantus Solostar) 100 Unit/Ml Inj 22 UNITS SC QPM for 30 Days, #1 BTL 0 Refills (Changed from: 40 UNITS) Continued Medications: Acetaminophen (Tylenol) 650 Mg Supp 60 MG OR Q6H for Pain or Fever Acetaminophen Tab (Tylenol) 325 Mg Tab 650 MG PO Q6 PRN for Pain or Fever, TAB FOR TEMP >101F. NOT TO EXCEED 3GM/24HRS Albuterol Sulf (Proventil 0.083% 2.5MG/3ML) 2.5 Mg/3 Ml Nebu 2.5 MG INH Q6H, #1 BOX 2 Refills Alendronate Sodium (Binosto) 70 Mg Tab 70 MG PO WK EVERY THURSDAY Amlodipine (Norvasc) 5 Mg Tab 5 MG PO DAILY, TAB Apixaban (Eliquis) 2.5 Mg Tab 2.5 MG PO BID Atorvastatin (Lipitor) 40 Mg Tab 40 MG PO QPM, TAB Benzonatate (Benzonatate) 100 Mg Cap 100 MG PO TID, #30 CAP 0 Refills Bepotastine Besilate (Bepreve) 1.5 % Christiano 1 DROP OPB BID Bisacodyl (Bisac-Evac) 10 Mg Sup 1 SUPP OR UD PRN for NO BM X4 DAYS Budesonide/Formoterol Fumarate (Symbicort 160/4.5 Inhaler ) Aero 2 PUFFS INH BID, INHALER Bumetanide (Bumetanide) 1 Mg Tab 2.5 MG PO BID Calcium Carbonate-Vitamin D (Oscal 500/200 D-3) 1 Tab Tab 1 TAB PO BID Cholecalciferol (Vitamin D3) 2,000 Unit Tab 2000 UNITS PO DAILY for 90 Days, TAB 3 Refills Dextrose (Diabetic Use) (Insta-Glucose) 77.4 % Gel 1 APPLN MT UD PRN for HYPOGLYCEMIA PROTOCOL Digoxin (Digoxin) 0.125 Mg Tab 0.125 MG PO QPM Fentanyl (Fentanyl) 25 Mcg Tdsy 25 MCG TD [id number] Ferrous Sulfate (Ferrous Sulfate) 325 Mg Tab 325 MG PO TIDM for 30 Days, #90 TAB Gabapentin (Neurontin) 300 Mg Cap 600 MG PO TID for 30 Days, #180 CAP Glucagon (Glucagon Emergency Kit) 1 Mg Kit 1 MG IM UD PRN for HYPOGLYCEMIA Guaifenesin (Guaifenesin) 100 Mg/5 Ml Syp 10 ML PO TID [id number] Guaifenesin Ext Rel (Mucinex Ext Rel) 600 Mg Tabcr 1200 MG PO Q12 for 7 Days, #14 0 Refills Home O2 Therapy (Oxygen) Gas 3 LITER NA CONTINOUS Insulin Aspart (Novolog Penfill) 100 Unit/Ml Inj 4 UNITS SC AC Insulin Aspart (Novolog) 100 Units/Ml Inj 100 SC DIRECTED inject per sliding scale 0-150= 0 units, 151-200 = 6 units, 201-250= 8 units, 251-300 = 10 units, 301-350 =12 units, 351-400 = 14 units, 401-450 = 16 units greater than 451 call Lactobacillus (Lactobacillus) 1 Tab Tab 1 TAB PO BID Latanoprost (Xalatan 0.005% Oph Anna) 0.005 % Anna 1 DROPS OPB HS, #2.5 ML 3 Refills Levothyroxine Sodium (Levothyroxine Sodium) 25 Mcg Tab 25 MCG PO Q2D for 30 Days, TAB 5 Refills Magnesium Hydroxide (Milk Of Magnesia) 30 Ml Susp 30 ML PO UD PRN for NO BM X 9 SHIFTS, ML Magnesium Oxide (Mag-Ox) 400 Mg Tab 400 MG PO BID, TAB Metoprolol Tartrate (Lopressor) (Lopressor) 25 Mg Tab 25 MG PO BID, TAB Multivitamin (Multivitamin) Tab 1 TAB PO DAILY, TAB Ondasetron Odt (Zofran Odt) 4 Mg Tab 4 MG SL Q8 for Nausea, TAB Potassium Chloride (Klor-Con M20) 20 Meq Tabcr 20 MEQ PO BID Ranitidine (Zantac) 150 Mg Tab 150 MG PO BID, TAB Ropinirole (Requip) 0.5 Mg Tab 0.5 MG PO DAILY, TAB Saline (Saline Nasal [place]) 0.65 % Spr 2 SPRAYS ADELA BID Sertraline (Zoloft) 50 Mg Tab 50 MG PO HS, TAB Sodium Phosphate/Biphosphate (Fleet Enema) Emy 1 EA OR UD PRN for NO RESULTS FROM SUPPOSITORY , BTL Umeclidinium-Vilanterol (Anoro Ellipta 62.5-25 Mcg/INH) 1 Aer Aer 1 INHA PO QAM [Liquid Protein] () 30 ML PO BID [id number] Discontinued Medications: Cefdinir (Cefdinir) 300 Mg Cap 300 MG PO BID for 2 Days, #3 CAP Discharge Exam ROS largely deferred as patient intermittently answers. States she is not having pain and no abdominal pain/nausea/vomiting Physical Exam: General Appearance: WD/WN, no apparent distress, + obese Eyes: sclerae normal Neck: supple, no JVD, trachea midline Respiratory/Chest: no respiratory distress, no accessory muscle use, + decreased breath sounds (bases b/l) Cardiovascular: + systolic murmur, + irregularly irregular Abdomen / GI: normal bowel sounds, non tender, soft Extremities: + pertinent finding (R AKA with no pitting edema; LLE without edema) Neurologic/Psychiatric: alert Skin: normal color, warm/dry Hospital Course ADMISSION: The patient is an 87-year-old white female with a significant past medical history of chronic respiratory failure secondary to COPD on chronic O2 3 liter per minute, persistent atrial fibrillation, hypertension, chronic diastolic CHF, diabetic, hypothyroidism, coming to the hospital Emergency Department because of the above chief complaint. This medical information was obtained from ED physicians because the patient has altered mental status. Per report, patient is a resident in the [facility]. She came off CPAP machine this morning and was found to have hypoxic. She was nonverbal upon arriving to the Emergency Room. She was found to have dehydration with severe hypernatremia and was found to have fever up to 38.1. The information was limited. In the ED the patient also found to have leukocytosis, UTI and pneumonia. IV fluid started. Antibiotic was given. When I interviewed with her she was able to open eyes and speak single words, make no sense, which is improved compared to what I was report from the ED physicians. She was obtunded upon arriving to the Emergency Room. HOSPITAL COURSE: Ms. Powell was admitted for Metabolic Encephalopathy with Sepsis from Pansensitive Proteus UTI and Possible Pneumonia/Pneumonitis and Hypernatremia and unfortunately developed C. Difficile. Encephalopathy resolved with Abx treatment and resolution of hypernatremia. She was treated with Cefepime and Vancomycin and converted to Cefdinir 300 mg BID for one more day of therapy to complete a 7 day course. She was started on Vancomycin on 02/15 for C. Diff and will continue QID dosing to complete a 14 day course. Recommended to continue to hold diuretics if continues to have frequent stool. Is currently +5 L during admission to correct hypernatremia. Patient does not clinically appear to be fluid overloaded and CXR without congestion. During admission, patient had multiple episodes of hypoglycemia and did reduce Lantus to 22 units SC HS. This will need ongoing evaluation as hypoglycemia will be more detrimental then the long-term effects of hyperglycemia in this patient. i personally examined pt and verified all blevins points w A Jefe PAC feeling ok vitals noted nad breathing unlabored no pallor or icterus Cdiff - vanco, improving UTI - improving, as above stable for return to SNF Total Time Spent: Greater than 30 minutes This includes examination of the patient, discharge planning, medication reconciliation, and communication with other providers. Discharge Instructions Please refer to the electronic Patient Visit Report (Discharge Instructions) for additional information. Additional Copies To [facility]; Jane Victoria; Sylvester Victoria
[2017-02-16] MEDS ORDERED: CEFDINIR 300 MG CAP PO SCH (21:00)
[2017-02-16] MEDS ORDERED: INSULIN GLARGINE SOLOSTAR 100 UNITS/ML 3 ML PEN SC SCH (21:00)
== END 2017-02-16 12:14 | DRG 871 ==
LOC: EDBD 08:29 → C.EDA 08:30 → C.MED 12:40 → ENRESERV 12:59 → C.MED 23:22
PROVIDERS: ADMIT Hospitalist; ATTEND Family Medicine
DX: A41.9 Sepsis, unspecified organism (principal); J69.0 Pneumonitis due to inhalation of food and vomit; N39.0 Urinary tract infection, site not specified; G93.41 Metabolic encephalopathy; J96.21 Acute and chronic respiratory failure with hypoxia; A04.72 Enterocolitis due to Clostridium difficile, not specified as recurrent; E87.1 Hypo-osmolality and hyponatremia; I48.1 Persistent atrial fibrillation; I50.32 Chronic diastolic (congestive) heart failure; I13.0 Hypertensive heart and chronic kidney disease with heart failure and stage 1 through stage 4 chronic kidney disease, or unspecified chronic kidney disease; Z68.41 Body mass index [BMI] 40.0-44.9, adult; B96.4 Proteus (mirabilis) (morganii) as the cause of diseases classified elsewhere; E10.649 Type 1 diabetes mellitus with hypoglycemia without coma; R78.89 Finding of other specified substances, not normally found in blood; N18.2 Chronic kidney disease, stage 2 (mild); J44.9 Chronic obstructive pulmonary disease, unspecified; E11.22 Type 2 diabetes mellitus with diabetic chronic kidney disease; E03.9 Hypothyroidism, unspecified; E78.5 Hyperlipidemia, unspecified; K21.9 Gastro-esophageal reflux disease without esophagitis; I73.9 Peripheral vascular disease, unspecified; G89.29 Other chronic pain; E66.3 Overweight; Z79.899 Other long term (current) drug therapy; Z79.4 Long term (current) use of insulin; Z79.01 Long term (current) use of anticoagulants; Z99.81 Dependence on supplemental oxygen; Z66 Do not resuscitate; Z86.14 Personal history of Methicillin resistant Staphylococcus aureus infection; Z89.611 Acquired absence of right leg above knee; Z95.0 Presence of cardiac pacemaker

== ENCOUNTER → 2017-02-11 | Outpatient (CLI) | payer OTHER ==
[~2017-02-11] MED LIST changes: +ACET650S10 PR; +APIX1TAB PO; +LACT1TAB26 PO; +ONDA4TAB10 SL; +UMEC1AER PO
[2017-02-11 06:01] LABS: BASO % 0.2 %; BASO ABS # 0.03 K/uL (0-0.2); EOS % 0.7 %; HEMATOCRIT 57.2 % (37-47); IG% 0.3 %; LYMPH % 13.8 %; LYMPH ABS # 2.03 K/uL (1.2-3.4); MEAN CELL VOLUME 92.3 fL (80-100); MEAN CORPUSCULAR HEMOGLOBIN 28.1 pg (25-34); MONO % 11.2 %; NEUT % 73.8 %; PLATELET COUNT 179 K/uL (130-400); WHITE BLOOD COUNT 14.71 K/uL (4.8-10.8)
[2017-02-11 06:05] LABS: COMPLETE YES; MEAN CORPUSCULAR HGB CONC 30.4 g/dl (32-36)
[2017-02-11 06:15] LABS: BLOOD UREA NITROGEN 57 mg/dl (7-18); BUN/CREATININE RATIO 48.4 (10-20); CALCIUM 10.8 mg/dl (8.5-10.1); CARBON DIOXIDE 39 mmol/L (21-32); CHLORIDE 114 mmol/L (98-107); CREATININE 1.17 mg/dl (0.60-1.20); GLUCOSE 94 mg/dl (70-99); POTASSIUM 4.1 mmol/L (3.5-5.1); SODIUM 157 mmol/L (136-145)
== END | disposition home or self-care (01) ==
LOC: C.LABUPBEA 04:55
PROVIDERS: ATTEND Nurse Practitioner Family
DX: R53.81 Other malaise (principal)

== ENCOUNTER → 2017-02-23 | Outpatient (CLI) | payer OTHER ==
[~2017-02-23] MED LIST changes: +ACET650S10 PR; +APIX1TAB PO; -CLOP1TAB15 PO; -IPRASOL4 INH; +LACT1TAB26 PO; -MISCCAP80 PO; -MTR500 PO; +ONDA4TAB10 SL; -SPRIN PO; -TRIA0.1C2 TOP; +UMEC1AER PO; +VANC5CAP PO; -WARF3TAB6 PO; -WARF4TAB8 PO
[2017-02-23 09:34] LABS: BASO % 0.4 %; BASO ABS # 0.03 K/uL (0-0.2); COMPLETE YES; EOS % 3.3 %; HEMATOCRIT 45.2 % (37-47); IG% 0.4 %; LYMPH % 14.3 %; LYMPH ABS # 1.05 K/uL (1.2-3.4); MEAN CELL VOLUME 92.6 fL (80-100); MEAN CORPUSCULAR HEMOGLOBIN 28.3 pg (25-34); MEAN CORPUSCULAR HGB CONC 30.5 g/dl (32-36); MEAN PLATELET VOLUME 12.9 fL (7.4-10.4); MONO % 8.5 %; NEUT % 73.1 %; PLATELET COUNT 206 K/uL (130-400); RED BLOOD COUNT 4.88 M/uL (4.2-5.4); WHITE BLOOD COUNT 7.33 K/uL (4.8-10.8)
[2017-02-23 09:57] LABS: BLOOD UREA NITROGEN 15 mg/dl (7-18); BUN/CREATININE RATIO 27.7 (10-20); CALCIUM 9.8 mg/dl (8.5-10.1); CARBON DIOXIDE 41 mmol/L (21-32); CHLORIDE 101 mmol/L (98-107); CREATININE 0.55 mg/dl (0.60-1.20); GLUCOSE 172 mg/dl (70-99); POTASSIUM 3.6 mmol/L (3.5-5.1); SODIUM 141 mmol/L (136-145)
== END ==
LOC: C.LABUPBEA 08:43
PROVIDERS: ATTEND Nurse Practitioner Family
DX: D64.9 Anemia, unspecified (principal); E87.6 Hypokalemia

== ENCOUNTER → 2017-03-10 | Outpatient (CLI) | payer OTHER ==
[~2017-03-10] MED LIST changes: +ACET-1693 PO; -ACET325T96 PO; +ALEN5SOL PO; -AMLO-110 PO; +AMLO5TAB3 PO; +AMOX1TAB43 PO; +ASCO250T5 PO; +BACIOIN2 TOP; +DRGTP75 TD; +FNTTP50 TD; +FSLL PO; +GABA1SOL3 PO; -GUAI100S16 PO; +GUAI100S66 PO; +KCLI20/100 PO; +MORP10SO PO; +MRPL10 PO; +MULT-513 PO; +RANI150T85 PO; +RANI75SY PO; +RXNS10 PO; +SALI-3 NAE; -SALI1SPR3 NAE; -ZNTT/150 PO
[2017-03-10 08:18] LABS: BLOOD UREA NITROGEN 19 mg/dl (7-18); CALCIUM 9.3 mg/dl (8.5-10.1); CARBON DIOXIDE 39 mmol/L (21-32); CREATININE 0.52 mg/dl (0.60-1.20); GLUCOSE 195 mg/dl (70-99); POTASSIUM 3.5 mmol/L (3.5-5.1); SODIUM 151 mmol/L (136-145)
== END | disposition home or self-care (01) ==
LOC: C.LABUPBEA 07:29
PROVIDERS: ATTEND Nurse Practitioner Family
DX: E87.6 Hypokalemia (principal)

== ENCOUNTER → 2017-03-23 | Outpatient (CLI) | payer OTHER ==
[~2017-03-23] MED LIST changes: -ACET-1693 PO; +ACET325T96 PO; -ALEN5SOL PO; +AMLO-110 PO; -AMLO5TAB3 PO; -AMOX1TAB43 PO; -ASCO250T5 PO; -BACIOIN2 TOP; -DRGTP75 TD; -FNTTP50 TD; -FSLL PO; -GABA1SOL3 PO; +GUAI100S16 PO; -GUAI100S66 PO; -KCLI20/100 PO; -MORP10SO PO; -MRPL10 PO; -MULT-513 PO; -RANI150T85 PO; -RANI75SY PO; -RXNS10 PO; -SALI-3 NAE; +SALI1SPR3 NAE; +ZNTT/150 PO
[2017-03-23 09:19] LABS: BLOOD UREA NITROGEN 21 mg/dl (7-18); CALCIUM 9.7 mg/dl (8.5-10.1); CARBON DIOXIDE 33 mmol/L (21-32); CREATININE 0.48 mg/dl (0.60-1.20); GLUCOSE 168 mg/dl (70-99); POTASSIUM 3.8 mmol/L (3.5-5.1); SODIUM 145 mmol/L (136-145)
== END ==
LOC: C.LABUPBEA 07:42
PROVIDERS: ATTEND Nurse Practitioner Family
DX: E87.6 Hypokalemia (principal)

== ENCOUNTER → 2017-03-27 | Outpatient (CLI) | payer OTHER | LOC: C.LABUPBEA 07:51 | PROVIDERS: ATTEND Nurse Practitioner Family | DX: R77.0 Abnormality of albumin (principal) ==

== ENCOUNTER → 2017-04-08 | Outpatient (CLI) | payer OTHER | LOC: C.LABUPBEA 08:49 | PROVIDERS: ATTEND Nurse Practitioner Family | DX: E03.9 Hypothyroidism, unspecified (principal) ==

== ENCOUNTER 2017-04-20 00:43 | Inpatient (IN) | payer OTHER ==
[2017-04-20] VITALS (11 sets, daily range): BP systolic 121–142; BP diastolic 61–69; PULSE 62–78; TEMP 36.1–37; O2SAT 94–98; Ht 165.1 cm; Wt 82.7 kg
[~2017-04-20] VITALS: Ht 165.1 cm; Wt 82.7 kg
[~2017-04-20 00:43] MED LIST changes: +ACET-1693 PO; -ACET325T96 PO; +BACIOIN2 TOP; +RANI150T85 PO; -ZNTT/150 PO
--- NOTE | 2017-04-20 00:59 | EMERGENCY ROOM VISIT NOTE ---
History Report prepared by Bill: Marilyn Lawson Under the Supervision of: Dr. Javier Mcdaniel M.D. First contact with patient: 00:47 Chief Complaint: FALL Stated Complaint: FALL/LOW OXYGEN SATURATION History of Present Illness The patient is a 87 year old female who presents to the Emergency Room with complaints of persistent trauma secondary to following off her bed 4 hours ago. According to the patient's caregivers, her oxygen has been low and they think that she has a possible pneumonia, shoulder fracture, and hip fracture. EMS staff noticed the patient had a Fentanyl patch when they arrived. The patient is a full code. HPI is limited due to patient being in altered mental status. Source of History: patient History Limited By: AMS Onset: 4 hours ago Position: other (global) Quality: other (persistent) Timing: other (resolved) Review of Systems See HPI for pertinent positives & negatives. A total of 10 systems reviewed and were otherwise negative. 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 (14) PERIPH VASCULAR DIS NOS (15) pna, UTI, hypernatremia (16) Recurrent pneumonia Family History Unobtainable due to patient's condition Social History Smoking Status: Former Smoker Alcohol Use: none Drug Use: none Marital Status: Housing Status: [employer] Occupation Status: retired Current/Historical Medications Scheduled Albuterol Sulf (Proventil 0.083% 2.5MG/3ML), 2.5 MG INH Q6H Alendronate Sodium (Alendronate Sodium), 70 MG PO WK Amlodipine (Norvasc), 5 MG PO DAILY Apixaban (Eliquis), 2.5 MG PO BID Ascorbic Acid (Ascorbic Acid), 25 MG PO DAILY Atorvastatin (Lipitor), 40 MG PO QPM Bacitracin/Polymyxin B (Polysporin), 1 APPLN TOP QPM Bacitracin/Polymyxin B (Polysporin), 1 APPLN TOP QPM Bepotastine Besilate (Bepreve), 1 DROP OPB BID Budesonide/Formoterol Fumarate (Symbicort 160/4.5 Inhaler ), 2 PUFFS INH BID Bumetanide (Bumetanide), 2.5 MG PO BID Calcium Carbonate-Vitamin D (Oscal 500/200 D-3), 1 TAB PO BID Cholecalciferol (Vitamin D3), 2,000 UNITS PO DAILY Digoxin (Digoxin), 0.125 MG PO HS Fentanyl (Fentanyl), 25 MCG TD [id number] Ferrous Sulfate (Ferrous Sulfate), 7.5 ML PO DAILY Gabapentin (Neurontin), 600 MG PO TID Guaifenesin (Guaifenesin), 10 ML PO TID Home O2 Therapy (Oxygen), 3 LITER NA CONTINOUS Insulin Aspart (Novolog Penfill), 6 UNITS SC AC Insulin Aspart (Novolog), 100 SC DIRECTED Insulin Glargine (Lantus Solostar), 24 UNITS SC QPM Lactobacillus (Lactobacillus), 1 TAB PO BID Latanoprost (Xalatan 0.005% Oph Anna), 1 DROPS OPB HS Levothyroxine Sodium (Levothyroxine Sodium), 25 MCG PO Q2D Magnesium Oxide (Mag-Ox), 400 MG PO BID Metoprolol Tartrate (Lopressor) (Lopressor), 25 MG PO BID Multivitamins/Minerals (Mvi With Minerals), 1 TAB PO DAILY Potassium Chloride (Potassium Chloride), 20 MEQ PO BID Ranitidine Hcl (Zantac), 150 MG PO BID Ropinirole (Requip), 0.5 MG PO DAILY Saline (Saline Nasal Johnson), 2 SPRAYS ADELA BID Sertraline (Zoloft), 50 MG PO HS Umeclidinium-Vilanterol (Anoro Ellipta 62.5-25 Mcg/INH), 1 INHA PO QAM Scheduled PRN Acetaminophen (Tylenol), 1 SUPP SC Q6H PRN for temp > 101 Acetaminophen Tab (Tylenol), 650 MG PO Q4 PRN for Pain or Fever Allergies Coded Allergies: RICHARD Inhibitors (Verified Allergy, Unknown, unknown, 02/11/17) Aspirin (Verified Allergy, Unknown, unknown, 02/11/17) [place] Atenolol (Verified Allergy, Unknown, unknown; TAKES TOPROL XL W/O PROBLEM , 02/11/17) Cefprozil (Verified Allergy, Unknown, unknown, 02/11/17) TOLERATED ROCEPHIN 02/2014 FOR MULTIPLE DOSES Ciprofloxacin (Verified Allergy, Unknown, unknown, 02/11/17) Codeine (Verified Allergy, Unknown, unknown, 02/11/17) Fluticasone (Verified Allergy, Unknown, Unknown, 02/11/17) Furosemide (Verified Allergy, Unknown, ., 02/11/17) Hydrochlorothiazide (Verified Allergy, Unknown, unknown, 02/11/17) Hydrochlorothiazide w/Triamterene (Verified Allergy, Unknown, unknown, 02/11/17) Ibuprofen (Verified Allergy, Unknown, unknown; HAS TAKEN ASA W/O PROBLEM, 02/11/17) Lisinopril (Verified Allergy, Unknown, unknown, 02/11/17) Meperidine (Verified Allergy, Unknown, unknown, 02/11/17) Niacinamide (Verified Allergy, Unknown, NICOTINAMIDE, 02/11/17) Penicillins (Verified Allergy, Unknown, UNKNOWN, 02/11/17) TOLERATED ROCEPHIN 02/2014 FOR MULTIPLE DOSES, TOLERATED ZOSYN 08/26/2012-08/30 Quinolones (Verified Allergy, Unknown, 02/11/17) Rofecoxib (Verified Allergy, Unknown, unknown, 02/11/17) Salmeterol (Verified Allergy, Unknown, Unknown, 02/11/17) Spironolactone (Verified Allergy, Unknown, unknown, 02/11/17) Statins (Verified Allergy, Unknown, unknown, 02/11/17) Sulfa Antibiotics (Verified Allergy, Unknown, ., 02/11/17) Physical Exam Vital Signs Date Time Temp Pulse Resp B/P (MAP) Pulse Ox O2 Delivery O2 Flow Rate FiO2 04/20/17 03:47 65 18 107/44 95 Room Air 04/20/17 02:13 69 19 92 Nasal Cannula 4.0 04/20/17 02:02 129/32 04/20/17 01:32 105/42 04/20/17 01:13 77 18 04/20/17 01:04 152/67 04/20/17 01:02 176/66 04/20/17 00:58 103/68 04/20/17 00:51 83 04/20/17 00:46 107/42 04/20/17 00:43 36.4 84 23 107/42 79 Room Air Physical Exam GENERAL: Patient is chronically unwell appearing, morbidly obese, altered/ confused, and in no acute distress. Weak response to questions, secondary to history of altered mental status. HEENT: Small pin point pupils that are reactive. No acute trauma, normocephalic atraumatic, mucous membranes moist, no nasal congestion, no scleral icterus. NECK: No stridor, no adenopathy, no meningismus, trachea is midline. LUNGS: No dyspnea. Diffused crackles throughout. No wheeze, no rhonchi. HEART: Regular rate and rhythm. No murmurs, rubs, gallops appreciated. ABDOMEN: Soft, nontender, bowel sounds positive, no masses appreciated, no peritonitis. BACK: No midline tenderness, no CVA tenderness EXTREMITIES: High amount of bruising of left shoulder. 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 Severe pain with range of motion over right thigh. NEUROLOGIC: Alert and oriented, no acute motor or sensory deficits, no focal weakness, cranial nerves grossly intact. SKIN: No rash, no jaundice, no diaphoresis Medical Decision & Procedures ER Provider Diagnostic Interpretation: Radiology results and stated below per my review and radiologist interpretation: CT C SPINE: No evidence of acute or healing fracture or malalignment. Multilevel spine degenerative changes. Diffuse osteopenia. No critical central canal stenosis or apical pneumothorax. Interlobular septal thickening at the apices. Calcified granuloma at the left apex. Atherosclerotic calcifications of the internal carotid arteries of the neck. Impression: No evidence of acute or healing fracture or malalignment. Radiologist: Lui Denny M.D. CT HEAD: Compared with 09/19/14 CT No ICH, mass effect or edema. No evidence of acute cortical stroke. 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 No midline shift or hydrocephalus. Diffuse parenchymal atrophy. Dense atherosclerotic calcifications of the carotid siphons and vertebrobasilar arteries. Visualized sinuses and mastoid air cells are clear. Radiologist: Lui Denny M.D. X ray results are stated below per my interpretation: Chest: 1 view: Mild congestive findings in right lobe, diffused infiltrative findings throughout left lung. No effusion and normal cardiac border. Right shoulder: 2 view: Proximal humeral fraction without significant displacement and no dislocation. Pelvis: 1 view: Fraction of femoral neck on right side, not displaced, and no dislocation. Laboratory Results 04/20/17 01:26 Red Blood Count 4.74, Mean Corpuscular Volume 96.8, Mean Corpuscular Hemoglobin 30.2, Mean Corpuscular Hemoglobin Concent 31.2, Mean Platelet Volume 11.5, Neutrophils (%) (Auto) 89.0, Lymphocytes (%) (Auto) 2.8, Monocytes (%) (Auto) 7.6, Eosinophils (%) (Auto) 0.1, Basophils (%) (Auto) 0.1, Neutrophils # (Auto) 19.65, Lymphocytes # (Auto) 0.62, Monocytes # (Auto) 1.68, Eosinophils # (Auto) 0.03, Basophils # (Auto) 0.02 04/20/17 01:26 Test 04/20/17 01:15 04/20/17 01:20 04/20/17 01:24 04/20/17 01:26 Urine Color YELLOW Urine Appearance CLEAR (CLEAR) Urine pH 7.0 (4.5-7.5) Urine Specific [place] 1.011 (1.000-1.030) Urine Protein NEG (NEG) Urine Glucose (UA) NEG (NEG) Urine Ketones NEG (NEG) Urine Occult Blood NEG (NEG) Urine Nitrite NEG (NEG) Urine Bilirubin NEG (NEG) Urine Urobilinogen NEG (NEG) Urine Leukocyte Esterase TRACE (NEG) Urine WBC (Auto) 1-5 /hpf (0-5) Urine RBC (Auto) 0-4 /hpf (0-4) Urine Hyaline Casts (Auto) 1-5 /lpf (0-5) Urine Epithelial Cells (Auto) >30 /lpf (0-5) Urine Bacteria (Auto) NEG (NEG) Digoxin Level 1.5 ng/ml (0.8-2.0) Bedside Lactic Acid Venous 2.30 mmol/L (0.90-1.70) White Blood Count 22.09 K/uL (4.8-10.8) Red Blood Count 4.74 M/uL (4.2-5.4) Hemoglobin 14.3 g/dL (12.0-16.0) Hematocrit 45.9 % (37-47) Mean Corpuscular Volume 96.8 fL (80-100) Mean Corpuscular Hemoglobin 30.2 pg (25-34) Mean Corpuscular Hemoglobin Concent 31.2 g/dl (32-36) Platelet Count 236 K/uL (130-400) Mean Platelet Volume 11.5 fL (7.4-10.4) Neutrophils (%) (Auto) 89.0 % Lymphocytes (%) (Auto) 2.8 % Monocytes (%) (Auto) 7.6 % Eosinophils (%) (Auto) 0.1 % Basophils (%) (Auto) 0.1 % Neutrophils # (Auto) 19.65 K/uL (1.4-6.5) Lymphocytes # (Auto) 0.62 K/uL (1.2-3.4) Monocytes # (Auto) 1.68 K/uL (0.11-0.59) Eosinophils # (Auto) 0.03 K/uL (0-0.5) Basophils # (Auto) 0.02 K/uL (0-0.2) RDW Standard Deviation 61.5 fL (36.4-46.3) RDW Coefficient of Variation 17.2 % (11.5-14.5) Immature Granulocyte % (Auto) 0.4 % Immature Granulocyte # (Auto) 0.09 K/uL (0.00-0.02) Prothrombin Time 11.9 SECONDS (9.0-12.0) Prothromb Time International Ratio 1.1 (0.9-1.1) Activated Partial Thromboplast Time 29.3 SECONDS (21.0-31.0) Partial Thromboplastin Ratio 1.1 Anion Gap 7.0 mmol/L (3-11) Est Creatinine Clear Calc Drug Dose 38.4 ml/min Estimated GFR () 53.7 Estimated GFR (Non- 46.3 BUN/Creatinine Ratio 25.5 (10-20) Calcium Level 10.0 mg/dl (8.5-10.1) Total Bilirubin 1.0 mg/dl (0.2-1) Direct Bilirubin 0.3 mg/dl (0-0.2) Aspartate Amino Transf (AST/SGOT) 30 U/L (15-37) Alanine Aminotransferase (ALT/SGPT) 23 U/L (12-78) Alkaline Phosphatase 204 U/L (45-117) Total Creatine Kinase 124 U/L (26-192) Troponin I 0.078 ng/ml (0-0.045) Pro-B-Type Natriuretic Peptide 3355 pg/ml (0-1800) Total Protein 7.7 gm/dl (6.4-8.2) Albumin 2.8 gm/dl (3.4-5.0) Laboratory results as reviewed by me. Medications Administered Medications (Trade) Dose Ordered Sig/Tariq Route Start Time Stop Time Status Last Admin Dose Admin Aztreonam 2000 mg/ Dextrose 110 ml @ 100 mls/hr NOW STAT IV 04/20/17 01:42 04/20/17 02:47 DC 04/20/17 02:08 100 MLS/HR Sodium Chloride 500 ml @ 999 mls/hr Q31M STAT IV 04/20/17 01:57 04/20/17 02:27 DC 04/20/17 01:57 999 MLS/HR Vancomycin HCl 1750 mg/Sodium Chloride 535 ml @ 200 mls/hr NOW STAT IV 04/20/17 03:28 04/20/17 06:08 04/20/17 03:38 200 MLS/HR ECG Indication: weakness Rate (beats per minute): 75 Rhythm: sinus rhythm Findings: 1st degree AV block (prolonged), ST depression (deep lateral, new), no ectopy, other (poor baseline) Change: no significant change (02/12/17) ED Course 2455: The patient was evaluated in room B4. A complete history and physical exam was performed. 0209: Discuss[place] the patient's [place] [facility] [place] The patient will be evaluated for further treatment and disposition. 0302: I reevaluated the patient, who was sleeping comfortably. Medical Decision Differential: Toxicological, Infectious, Stroke, SAH, Trauma, Electrolyte Abnormality, Hypoglycemia, Alcohol Intoxication, Drug Intoxication, Cardiac Abnormality, Sepsis, Meningitis/Encephalitis, Trauma, Excited Delirium, Serotonin Syndrome, Psychiatric, amongst other pathologies entertained. 87 yr old female who reportedly feel out of bed earlier this evening and has been confused with hypoxia. She has very poor lung exam with significant hypoxia on arrival. No bruising left ribs. Does have right shoulder/hip pain which fractures confirmed by Xrays. CT head negative as is cervical spine. WBC 22 and with CXR large left infiltrate she is septic with pneumonia. Given Aztreonam empirically as many allergies. Lactic acid mildly elevated which I suspect was due to prolonged hypoxia thus will given small fluid bolus without full 30ml/kg as this would clearly put her in to overload and kill her. Blood cultures obtained on arrival as well. EKG with clearly new lateral/inferior ST depressions which I suspect is due to sepsis plus significant hypoxia, which is also consistent wither her trop elevation. I doubt primary issue here is ACS though this will need to be trended out. I suspect her AMS is also likely secondary to her significant hypoxia as well as her infection/sepsis. Hospitalist in to evaluate. Review of chart from recent admission notes DNR which given her multiple issues chronically seems reasonable to avoid CPR/ Intubation if it came to that. Head Trauma GCS Score: 12 Medication Reconcilliation Current Medication List: was personally reviewed by me Blood Pressure Screening Patient's blood pressure: Normal blood pressure Blood pressure disposition: Did not require urgent referral Consults Time Called: 208 Consulting Physician: 208: Dr. Vargas Daniel, [facility] [place] Returned Call: 208 Discussed the patient's case. The patient will be evaluated for further treatment and disposition. Impression Primary Impression: Sepsis Additional Impressions: PNA (pneumonia) Altered mental status Fall Right humeral fracture Hip fracture, right Critical Care I have personally spent greater than 35 minutes of critical care time in the direct management of this patient. This was a life/limb threatening event. This includes time spent evaluating patient, direct bedside care, chart review, placing orders, interpretation of diagnostic studies, discussion with consultants, patient, and family members, as well as other required patient management activities. This 35 minutes is in excess of all separately billable procedures. Scribe Attestation The scribe's documentation has been prepared under my direction and personally reviewed by me in its entirety. I confirm that the note above accurately reflects all work, treatment, procedures, and medical decision making performed by me. Departure Information Dispostion Being Evaluated By Hospitalist Referrals Jane Victoria (PCP) Forms HOME CARE DOCUMENTATION FORM, IMPORTANT VISIT INFORMATION Patient Instructions My [facility] Problem Qualifiers
[2017-04-20] MEDS ORDERED: SODIUM CHLORIDE 0.9% 500ML 500 ML IV STA ×2 (01:35→01:57)
[2017-04-20] MEDS ORDERED: AZTREONAM IV 2,000 MG in DEXTROSE 5% 100ML 100 ML IV STA (01:42)
[2017-04-20 01:48] LABS: BASO % 0.1 %; BASO ABS # 0.02 K/uL (0-0.2); EOS % 0.1 %; EOS ABS # 0.03 K/uL (0-0.5); HEMATOCRIT 45.9 % (37-47); HEMOGLOBIN 14.3 g/dL (12.0-16.0); IG# 0.09 K/uL (0.00-0.02); LYMPH % 2.8 %; LYMPH ABS # 0.62 K/uL (1.2-3.4); MEAN CELL VOLUME 96.8 fL (80-100); MEAN CORPUSCULAR HEMOGLOBIN 30.2 pg (25-34); MEAN CORPUSCULAR HGB CONC 31.2 g/dl (32-36); MEAN PLATELET VOLUME 11.5 fL (7.4-10.4); MONO % 7.6 %; MONO ABS # 1.68 K/uL (0.11-0.59); NEUT ABS # 19.65 K/uL (1.4-6.5); PLATELET COUNT 236 K/uL (130-400); RED CELL DISTRIBUTION WIDTH CV 17.2 % (11.5-14.5); RED CELL DISTRIBUTION WIDTH SD 61.5 fL (36.4-46.3); WHITE BLOOD COUNT 22.09 K/uL (4.8-10.8)
[2017-04-20 01:56] LABS: POTASSIUM 4.3 mmol/L (3.5-5.1)
[2017-04-20 01:59] LABS: INR 1.1 (0.9-1.1); PTT PATIENT 29.3 SECONDS (21.0-31.0)
[2017-04-20 02:01] LABS: ALBUMIN 2.8 gm/dl (3.4-5.0); CREATININE 1.07 mg/dl (0.60-1.20)
[2017-04-20] MEDS ORDERED: MULT-513 PO ×2 (02:19)
[2017-04-20] MEDS ORDERED: INSDGIPEN SC (02:24)
[2017-04-20] MEDS ORDERED: GABA1SOL3 PO (02:25)
[2017-04-20 02:27] LABS: TOTAL PROTEIN 7.7 gm/dl (6.4-8.2)
[2017-04-20] MEDS ORDERED: ALEN5SOL PO ×2 (02:32)
[2017-04-20] MEDS ORDERED: ASCO250T5 PO ×2 (02:35)
[2017-04-20] MEDS ORDERED: FSLL PO ×2 (02:38)
[2017-04-20] MEDS ORDERED: RANI75SY PO (02:44)
[2017-04-20] MEDS ORDERED: KCLI20/100 PO ×2 (02:45)
[2017-04-20] MEDS ORDERED: VANCOMYCIN INJ 1,000 MG in SODIUM CHLORIDE 0.9% 250ML 250 ML IV STA (02:57)
[2017-04-20] MEDS ORDERED: ACETAMINOPHEN 650 MG SUPP PR PRN (03:00)
[2017-04-20] MEDS ORDERED: VANCOMYCIN CONSULT ACTIVE PRN (03:00)
--- NOTE | 2017-04-20 03:25 | History and Physical ---
History & Physical Date & Time of Service: Apr 20, 2017 at 03:17 Chief Complaint: Fall/Low Oxygen Saturation Primary Care Physician: Jane Victoria History of Present Illness Source: clinic records, hospital records, EMS The patient is an 87-year-old female resident of [facility] , who is brought to the emergency department by EMS after falling off her bed 4 hours ago. Staff there is concerned that she has fractured her right shoulder and right hip, and that has a possible pneumonia. The HPI is limited the patient is altered and cannot contribute. 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 (12) PERIPH VASCULAR DIS NOS Status: Chronic Family History Unobtainable due to patient's condition Social History Smoking Status: Unknown if Ever Smoked Drug Use: none Marital Status: Housing status: senior care Occupational Status: retired Immunizations History of Influenza Vaccine: No Influenza Vaccine Date: Jun 01, 2011 History of Tetanus Vaccine?: utd History of Pneumococcal: Yes Pneumococcal Date: Sep 02, 2012 History of Hepatitis B Vaccine: No Multi-Drug Resistant Organisms History of MDRO: Yes Type of MDRO: MRSA Allergies Coded Allergies: RICHARD Inhibitors (Verified Allergy, Unknown, unknown, 02/11/17) Aspirin (Verified Allergy, Unknown, unknown, 02/11/17) [place] Atenolol (Verified Allergy, Unknown, unknown; TAKES TOPROL XL W/O PROBLEM , 02/11/17) Cefprozil (Verified Allergy, Unknown, unknown, 02/11/17) TOLERATED ROCEPHIN 02/2014 FOR MULTIPLE DOSES Ciprofloxacin (Verified Allergy, Unknown, unknown, 02/11/17) Codeine (Verified Allergy, Unknown, unknown, 02/11/17) Fluticasone (Verified Allergy, Unknown, Unknown, 02/11/17) Furosemide (Verified Allergy, Unknown, ., 02/11/17) Hydrochlorothiazide (Verified Allergy, Unknown, unknown, 02/11/17) Hydrochlorothiazide w/Triamterene (Verified Allergy, Unknown, unknown, 02/11/17) Ibuprofen (Verified Allergy, Unknown, unknown; HAS TAKEN ASA W/O PROBLEM, 02/11/17) Lisinopril (Verified Allergy, Unknown, unknown, 02/11/17) Meperidine (Verified Allergy, Unknown, unknown, 02/11/17) Niacinamide (Verified Allergy, Unknown, NICOTINAMIDE, 02/11/17) Penicillins (Verified Allergy, Unknown, UNKNOWN, 02/11/17) TOLERATED ROCEPHIN 02/2014 FOR MULTIPLE DOSES, TOLERATED ZOSYN 08/26/2012-08/30 Quinolones (Verified Allergy, Unknown, 02/11/17) Rofecoxib (Verified Allergy, Unknown, unknown, 02/11/17) Salmeterol (Verified Allergy, Unknown, Unknown, 02/11/17) Spironolactone (Verified Allergy, Unknown, unknown, 02/11/17) Statins (Verified Allergy, Unknown, unknown, 02/11/17) Sulfa Antibiotics (Verified Allergy, Unknown, ., 02/11/17) Home Medications Scheduled Albuterol Sulf (Proventil 0.083% 2.5MG/3ML), 2.5 MG INH Q6H Alendronate Sodium (Alendronate Sodium), 70 MG PO WK Amlodipine (Norvasc), 5 MG PO DAILY Apixaban (Eliquis), 2.5 MG PO BID Ascorbic Acid (Ascorbic Acid), 25 MG PO DAILY Atorvastatin (Lipitor), 40 MG PO QPM Bacitracin/Polymyxin B (Polysporin), 1 APPLN TOP QPM Bacitracin/Polymyxin B (Polysporin), 1 APPLN TOP QPM Bepotastine Besilate (Bepreve), 1 DROP OPB BID Budesonide/Formoterol Fumarate (Symbicort 160/4.5 Inhaler ), 2 PUFFS INH BID Bumetanide (Bumetanide), 2.5 MG PO BID Calcium Carbonate-Vitamin D (Oscal 500/200 D-3), 1 TAB PO BID Cholecalciferol (Vitamin D3), 2,000 UNITS PO DAILY Digoxin (Digoxin), 0.125 MG PO HS Fentanyl (Fentanyl), 25 MCG TD [id number] Ferrous Sulfate (Ferrous Sulfate), 7.5 ML PO DAILY Gabapentin (Neurontin), 600 MG PO TID Guaifenesin (Guaifenesin), 10 ML PO TID Home O2 Therapy (Oxygen), 3 LITER NA CONTINOUS Insulin Aspart (Novolog Penfill), 6 UNITS SC AC Insulin Aspart (Novolog), 100 SC DIRECTED Insulin Glargine (Lantus Solostar), 24 UNITS SC QPM Lactobacillus (Lactobacillus), 1 TAB PO BID Latanoprost (Xalatan 0.005% Oph Anna), 1 DROPS OPB HS Levothyroxine Sodium (Levothyroxine Sodium), 25 MCG PO Q2D Magnesium Oxide (Mag-Ox), 400 MG PO BID Metoprolol Tartrate (Lopressor) (Lopressor), 25 MG PO BID Multivitamins/Minerals (Mvi With Minerals), 1 TAB PO DAILY Potassium Chloride (Potassium Chloride), 20 MEQ PO BID Ranitidine Hcl (Zantac), 150 MG PO BID Ropinirole (Requip), 0.5 MG PO DAILY Saline (Saline Nasal [place]), 2 SPRAYS ADELA BID Sertraline (Zoloft), 50 MG PO HS Umeclidinium-Vilanterol (Anoro Ellipta 62.5-25 Mcg/INH), 1 INHA PO QAM Scheduled PRN Acetaminophen (Tylenol), 1 SUPP GA Q6H PRN for temp > 101 Acetaminophen Tab (Tylenol), 650 MG PO Q4 PRN for Pain or Fever Review of Systems Review of systems is limited since patient is not able to contribute due to altered mental status. Physical Exam Vital Signs Date Time Temp Pulse Resp B/P (MAP) Pulse Ox O2 Delivery O2 Flow Rate FiO2 04/20/17 02:13 69 19 92 Nasal Cannula 4.0 04/20/17 02:02 129/32 04/20/17 01:32 105/42 04/20/17 01:13 77 18 04/20/17 01:04 152/67 04/20/17 01:02 176/66 04/20/17 00:58 103/68 04/20/17 00:51 83 04/20/17 00:46 107/42 04/20/17 00:43 36.4 84 23 107/42 79 Room Air The patient is unresponsive, normocephalic and atraumatic, lying in bed and in no acute distress. HEENT--PERRL, EOMI, mucous membranes and oropharynx dry. Neck--supple. No JVD. No bruits. Thyroid normal, trachea midline, no adenopathy. Heart--normal S1 and S2. No murmurs, rubs or gallops. Lungs--coarse breath sounds bilaterally, no respiratory distress, no accessory muscle use. Abdomen--normal bowel sounds and soft. Nontender. Nondistended, no hernias or masses. Extremities--right AKA. No edema. There is a diminished pulse on the left. Dermatologic--normal skin turgor, normal color, no abnormal lymph nodes, no rash. Neurologic--cranial nerves II through XII grossly intact. Rheumatologic--unable to examine Psychiatric--not responsive Diagnostics Laboratory Results Results Past 24 Hours Test 04/20/17 01:15 04/20/17 01:20 04/20/17 01:24 04/20/17 01:26 Range/Units Urine Color YELLOW Urine Appearance CLEAR CLEAR Urine pH 7.0 4.5-7.5 Urine Specific Jackson 1.011 1.000-1.030 Urine Protein NEG NEG Urine Glucose (UA) NEG NEG Urine Ketones NEG NEG Urine Occult Blood NEG NEG Urine Nitrite NEG NEG Urine Bilirubin NEG NEG Urine Urobilinogen NEG NEG Urine Leukocyte Esterase TRACE NEG Urine WBC (Auto) 1-5 0-5 /hpf Urine RBC (Auto) 0-4 0-4 /hpf Urine Hyaline Casts (Auto) 1-5 0-5 /lpf Urine Epithelial Cells (Auto) >30 0-5 /lpf Urine Bacteria (Auto) NEG NEG Digoxin Level 1.5 0.8-2.0 ng/ml Bedside Lactic Acid Venous 2.30 0.90-1.70 mmol/L White Blood Count 22.09 4.8-10.8 K/uL Red Blood Count 4.74 4.2-5.4 M/uL Hemoglobin 14.3 12.0-16.0 g/dL Hematocrit 45.9 37-47 % Mean Corpuscular Volume 96.8 80-100 fL Mean Corpuscular Hemoglobin 30.2 25-34 pg Mean Corpuscular Hemoglobin Concent 31.2 32-36 g/dl Platelet Count 236 130-400 K/uL Mean Platelet Volume 11.5 7.4-10.4 fL Neutrophils (%) (Auto) 89.0 % Lymphocytes (%) (Auto) 2.8 % Monocytes (%) (Auto) 7.6 % Eosinophils (%) (Auto) 0.1 % Basophils (%) (Auto) 0.1 % Neutrophils # (Auto) 19.65 1.4-6.5 K/uL Lymphocytes # (Auto) 0.62 1.2-3.4 K/uL Monocytes # (Auto) 1.68 0.11-0.59 K/uL Eosinophils # (Auto) 0.03 0-0.5 K/uL Basophils # (Auto) 0.02 0-0.2 K/uL RDW Standard Deviation 61.5 36.4-46.3 fL RDW Coefficient of Variation 17.2 11.5-14.5 % Immature Granulocyte % (Auto) 0.4 % Immature Granulocyte # (Auto) 0.09 0.00-0.02 K/uL Prothrombin Time 11.9 9.0-12.0 SECONDS Prothromb Time International Ratio 1.1 0.9-1.1 Activated Partial Thromboplast Time 29.3 21.0-31.0 SECONDS Partial Thromboplastin Ratio 1.1 Sodium Level 142 136-145 mmol/L Potassium Level 4.3 3.5-5.1 mmol/L Chloride Level 99 98-107 mmol/L Carbon Dioxide Level 36 21-32 mmol/L Anion Gap 7.0 3-11 mmol/L Blood Urea Nitrogen 27 7-18 mg/dl Creatinine 1.07 0.60-1.20 mg/dl Est Creatinine Clear Calc Drug Dose 38.4 ml/min Estimated GFR () 53.7 Estimated GFR (Non- 46.3 BUN/Creatinine Ratio 25.5 10-20 Random Glucose 219 70-99 mg/dl Calcium Level 10.0 8.5-10.1 mg/dl Total Bilirubin 1.0 0.2-1 mg/dl Direct Bilirubin 0.3 0-0.2 mg/dl Aspartate Amino Transf (AST/SGOT) 30 15-37 U/L Alanine Aminotransferase (ALT/SGPT) 23 12-78 U/L Alkaline Phosphatase 204 45-117 U/L Total Creatine Kinase 124 26-192 U/L Troponin I 0.078 0-0.045 ng/ml Pro-B-Type Natriuretic Peptide 3355 0-1800 pg/ml Total Protein 7.7 6.4-8.2 gm/dl Albumin 2.8 3.4-5.0 gm/dl Microbiology Results 04/20/17 Blood Culture, Received Pending 04/20/17 Blood Culture, Received Pending Impression Assessment and Plan Acute respiratory failure with hypoxia/bilateral pneumonia left worse than right -- Vancomycin IV per pharmacokinetic monitoring Cefepime 1 g IV every 8 hours Duonebs every 4 hours while awake and every 2 hours when necessary. Pulmicort Respules 0.5 mg inhaled twice daily Nasal cannula oxygen titrate to keep pulse ox greater than or equal to 92% Sputum Gram stain and culture. Altered mental state-- Presumed to be primarily related to hypoxia. However, will hold fentanyl patch due to possible sedation. Hold fentanyl Atrial fibrillation/hypertension-- N.p.o. status due to altered mentation. Holding all medications including amlodipine, apixaban, atorvastatin, bumetanide , mag oxide, metoprolol tartrate, and potassium chloride. Change digoxin to 0.125 mg IV at bedtime. Diabetes mellitus-- Hold Lantus 24 units subcu at bedtime. Place on Accu-Cheks before meals and at bedtime with NovoLog coverage per scale. Glaucoma-- Continue all eyedrops including Bepreve, and Xalatan. Chronic pain syndrome-- Patch as noted above due to possible oversedation. GERD-- Change to pantoprazole 40 mg IV daily. CODE STATUS: As noted by Dr. Aaron at her most recent admission, as discussed with her son, she is to be a level 5 DO NOT RESUSCITATE. 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 Y/N: Yes Risk Level: High Given or contraindicated: Unfractionated heparin SQ, SCD's Social Service Consult Lives in [facility]
[2017-04-20] MEDS ORDERED: VANCOMYCIN INJ 1,750 MG in SODIUM CHLORIDE 0.9% 500ML 500 ML IV STA (03:28)
[2017-04-20] MEDS: NSS + 20MEQ KCL 1000ML 1,000 ML IV SCH ×2 (04:51→15:50)
--- NOTE | 2017-04-20 07:02 | DIAGNOSTIC IMAGING REPORT ---
HEAD WITHOUT CONTRAST (CT) CLINICAL HISTORY: 87 years-old Female presenting with AMS. TECHNIQUE: Multidetector CT imaging of the head was performed without the use of intravenous contrast. IV contrast: None. A dose lowering technique was used consistent with the principles of ALARA (as low as reasonably achievable). COMPARISON: 09/19/2014. CT DOSE (mGy.cm): The estimated cumulative dose is 1026.45. FINDINGS: Terminal Clerk topogram: Unremarkable. Proportional ventricular and sulcal prominence, likely age-related parenchymal volume loss. Periventricular and subcortical white matter hypoattenuation, nonspecific but likely indicative of chronic small vessel ischemic change. 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 This is unchanged from prior exam. No mass effect or midline shift. No hemorrhage or acute territorial infarct. No extra-axial fluid collection. Paranasal sinuses and mastoid air cells clear. Calvarium intact. Bilateral curyung lenses are absent. Atherosclerosis. IMPRESSION: 1. Chronic small vessel ischemic change and old left MCA territory infarct. No acute intracranial abnormality. Electronically signed by: Myron Burns M.D. 04/20/2017 7:00 AM Dictated Date/Time: 04/20/2017 6:57 AM
--- NOTE | 2017-04-20 07:05 | DIAGNOSTIC IMAGING REPORT ---
CERVICAL SPINE CT CT DOSE: 1026.45 mGy.cm HISTORY: fall, AMS, head injury? TECHNIQUE: Multiaxial CT images of the cervical spine were performed and reformatted in the sagittal and coronal plane without the use of contrast. A dose lowering technique was utilized adhering to the principles of ALARA. COMPARISON: None. FINDINGS: No fractures. No subluxation. Prevertebral soft tissues and the C1-C2 interval are intact. No pneumothorax. Disc space narrowing throughout the cervical spine. Moderate central canal narrowing within the mid thoracic spine due to the degenerative changes. Interlobular septal thickening at the lung apices. IMPRESSION: No fractures within the cervical spine. Electronically signed by: Eliazar Mckeon M.D. 04/20/2017 7:03 AM Dictated Date/Time: 04/20/2017 7:00 AM
--- NOTE | 2017-04-20 07:15 | DIAGNOSTIC IMAGING REPORT ---
RIGHT SHOULDER 3 VIEWS HISTORY: right shoulder injury COMPARISON: None. FINDINGS: There is an impacted and slightly displaced fracture within the right humeral neck which extends through the greater tuberosity. No dislocation. The right clavicle is intact. Soft tissue swelling within the right shoulder. No radiopaque foreign bodies. IMPRESSION: Right humeral head/neck fracture as described above. No dislocation. Electronically signed by: Eliazar Mckeon M.D. 04/20/2017 7:14 AM Dictated Date/Time: 04/20/2017 7:12 AM
--- NOTE | 2017-04-20 07:17 | DIAGNOSTIC IMAGING REPORT ---
PELVIS ONE VIEW HISTORY: right hip injury COMPARISON: None. FINDINGS: Slightly impacted right femoral neck fracture. No dislocation. The visualized pelvic bones and left hip are intact. There is a large amount of stool seen within the colon rectum. The rectum is distended up to 11 cm. Soft tissues are unremarkable. No radiopaque foreign bodies. IMPRESSION: 1. Right femoral neck fracture. 2. Large amount of stool within the colon and rectum. This may represent fecal impaction. Electronically signed by: Eliazar Mckeon M.D. 04/20/2017 7:15 AM Dictated Date/Time: 04/20/2017 7:14 AM
--- NOTE | 2017-04-20 07:18 | DIAGNOSTIC IMAGING REPORT ---
CHEST ONE VIEW PORTABLE HISTORY: Altered mental status. COMPARISON: Chest 02/14/2017. FINDINGS: No pneumothorax. No pleural effusions. Right humeral head/neck fractures again noted. There is diffuse interstitial vascular thickening which has progressed. The heart is also mildly enlarged. Left-sided single lead pacemaker is again noted. IMPRESSION: Diffuse interstitial and vascular thickening which has progressed consistent with pulmonary edema. Electronically signed by: Eliazar Mckeon M.D. 04/20/2017 7:16 AM Dictated Date/Time: 04/20/2017 7:15 AM
[2017-04-20] MEDS: ALBUT/IPRATROP 3MG/0.5MG NEB 3 ML VIAL INH SCH ×4 (07:49→20:27)
[2017-04-20] MEDS: BUDESONIDE 0.5 MG/2 ML VIAL (PULMICORT) INH SCH ×2 (07:49→20:27)
[2017-04-20] MEDS: SODIUM CHLORIDE 0.65% NA SOLN 45 ML (OCEAN) NAE SCH ×3 (09:00→20:47)
[2017-04-20] MEDS: BISACODYL 10 MG SUPP PR SCH (09:05)
[2017-04-20] MEDS: HEPARIN SOD 5000 UNIT/0.5 ML CARP SQ SCH ×2 (09:07→21:21)
[2017-04-20] MEDS: AZTREONAM IV 1,000 MG in DEXTROSE 5% 100ML 100 ML IV SCH ×2 (09:08→18:17)
[2017-04-20] MEDS ORDERED: GLUCAGON FOR INJ 1 MG VIAL SQ PRN (09:15)
[2017-04-20] MEDS ORDERED: GLUCOSE 10 TABS/TUBE PO PRN (09:15)
[2017-04-20] MEDS ORDERED: DEXTROSE 50% 50 ML SYR IV PRN (09:15)
[2017-04-20] MEDS ORDERED: GLUCOSE 40% GEL 15 GM TUBE PO PRN (09:15)
[2017-04-20] MEDS ORDERED: PHARMACY GLYCEMIC MGMT CONSULT PRN (10:22)
--- NOTE | 2017-04-20 10:51 | Pharmacy Progress Note ---
Pharmacy Antibiotic Consult Date of Service: Apr 20, 2017. Pharmacy Dosing Scope Pharmacy is consulted to initiate vancomycin IV dosing therapy, order appropriate labs and adjust drug dose/frequency. Subjective The patient is a 87 year old female admitted on Apr 20, 2017 at 02:57. Objective Height (Feet): 5 Height (Inches): 5.00 Weight (Kilograms): 82.700 Lab Results (24hrs): Test 04/20/17 01:15 04/20/17 01:20 04/20/17 01:24 04/20/17 01:26 Urine Color YELLOW Urine Appearance CLEAR (CLEAR) Urine pH 7.0 (4.5-7.5) Urine Specific Kite 1.011 (1.000-1.030) Urine Protein NEG (NEG) Urine Glucose (UA) NEG (NEG) Urine Ketones NEG (NEG) Urine Occult Blood NEG (NEG) Urine Nitrite NEG (NEG) Urine Bilirubin NEG (NEG) Urine Urobilinogen NEG (NEG) Urine Leukocyte Esterase TRACE (NEG) Urine WBC (Auto) 1-5 /hpf (0-5) Urine RBC (Auto) 0-4 /hpf (0-4) Urine Hyaline Casts (Auto) 1-5 /lpf (0-5) Urine Epithelial Cells (Auto) >30 /lpf (0-5) Urine Bacteria (Auto) NEG (NEG) Digoxin Level 1.5 ng/ml (0.8-2.0) Bedside Lactic Acid Venous 2.30 mmol/L (0.90-1.70) White Blood Count 22.09 K/uL (4.8-10.8) Red Blood Count 4.74 M/uL (4.2-5.4) Hemoglobin 14.3 g/dL (12.0-16.0) Hematocrit 45.9 % (37-47) Mean Corpuscular Volume 96.8 fL (80-100) Mean Corpuscular Hemoglobin 30.2 pg (25-34) Mean Corpuscular Hemoglobin Concent 31.2 g/dl (32-36) Platelet Count 236 K/uL (130-400) Mean Platelet Volume 11.5 fL (7.4-10.4) Neutrophils (%) (Auto) 89.0 % Lymphocytes (%) (Auto) 2.8 % Monocytes (%) (Auto) 7.6 % Eosinophils (%) (Auto) 0.1 % Basophils (%) (Auto) 0.1 % Neutrophils # (Auto) 19.65 K/uL (1.4-6.5) Lymphocytes # (Auto) 0.62 K/uL (1.2-3.4) Monocytes # (Auto) 1.68 K/uL (0.11-0.59) Eosinophils # (Auto) 0.03 K/uL (0-0.5) Basophils # (Auto) 0.02 K/uL (0-0.2) RDW Standard Deviation 61.5 fL (36.4-46.3) RDW Coefficient of Variation 17.2 % (11.5-14.5) Immature Granulocyte % (Auto) 0.4 % Immature Granulocyte # (Auto) 0.09 K/uL (0.00-0.02) Prothrombin Time 11.9 SECONDS (9.0-12.0) Prothromb Time International Ratio 1.1 (0.9-1.1) Activated Partial Thromboplast Time 29.3 SECONDS (21.0-31.0) Partial Thromboplastin Ratio 1.1 Sodium Level 142 mmol/L (136-145) Potassium Level 4.3 mmol/L (3.5-5.1) Chloride Level 99 mmol/L (98-107) Carbon Dioxide Level 36 mmol/L (21-32) Anion Gap 7.0 mmol/L (3-11) Blood Urea Nitrogen 27 mg/dl (7-18) Creatinine 1.07 mg/dl (0.60-1.20) Est Creatinine Clear Calc Drug Dose 38.4 ml/min Estimated GFR () 53.7 Estimated GFR (Non- 46.3 BUN/Creatinine Ratio 25.5 (10-20) Random Glucose 219 mg/dl (70-99) Calcium Level 10.0 mg/dl (8.5-10.1) Total Bilirubin 1.0 mg/dl (0.2-1) Direct Bilirubin 0.3 mg/dl (0-0.2) Aspartate Amino Transf (AST/SGOT) 30 U/L (15-37) Alanine Aminotransferase (ALT/SGPT) 23 U/L (12-78) Alkaline Phosphatase 204 U/L (45-117) Total Creatine Kinase 124 U/L (26-192) Troponin I 0.078 ng/ml (0-0.045) Pro-B-Type Natriuretic Peptide 3355 pg/ml (0-1800) Total Protein 7.7 gm/dl (6.4-8.2) Albumin 2.8 gm/dl (3.4-5.0) Test 04/20/17 06:44 Bedside Glucose 224 mg/dl (70-90) Assessment & Plan Patient presenting with possible pulmonary infectious process, placed empirically on vancomycin and aztreonam. Only blood cultures are ordered at this time, I will order a MRSA nasal swab. Loading dose: 1750 mg IV X 1 dose (given at 0330) then: 1000 mg IV every 24 hours. Goal trough level estimate: between 15 - 20 mcg/mL. Peak and trough or random level has been ordered for: @0330. Pharmacy will continue to follow and will adjust dose/frequency as necessary. Thank you
[2017-04-20] MEDS: PANTOprazole INJ 40 MG in SYRINGE 0 ML IV SCH (11:13)
--- NOTE | 2017-04-20 11:15 | Progress Note ---
Progress Note Date of Service Apr 20, 2017. Progress Note Patient was admitted today. Patient is DNR/ and family does not want aggressive measures. I called son Hector who is the POA. I informed him on the 2 fractures: right humerus, and right femoral neck, as well as the possible pneumonia. Patient's son explains that she had sustained a fall at the longterm as she rolled off her bed. Son also notes that she has a bed sore as well from being essentially bedridden. I explained that I do not believe she is a surgical candidate given that she is bed ridden, and does not have significant quality of life. I also explained that with hip fractures her quality of life will likely worsen. I told him I will get Ortho involved to discuss options. I also asked if he would like to get palliative care involved. He said no as he knows the options. He will discuss with the family and will like for me to call him back tomorrow. Will continue with current management for now. Patient will remain DNR as family confirmed this. I spent about 45 minutes on this case, reviewing records, examining patient and discussing with her family.
[2017-04-20] MEDS: INSULIN ASPART 100 UNITS/ML 3 ML PEN SC SCH ×3 (12:32→23:48)
--- NOTE | 2017-04-20 13:39 | DIAGNOSTIC IMAGING REPORT ---
R FEMUR 2 VIEWS ROUTINE CLINICAL HISTORY: right hip fx trauma. Pain. COMPARISON: None. DISCUSSION: Subcapital fracture right hip. No evidence for acetabular protrusion. 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 Generalized osteopenia/osteoporosis. There is no evidence for soft tissue swelling. IMPRESSION: Subcapital fracture right hip. The above report was generated using voice recognition software. It may contain grammatical, syntax or spelling errors. Electronically signed by: Kelvin Stanley M.D. 04/20/2017 1:37 PM Dictated Date/Time: 04/20/2017 1:35 PM
[2017-04-20] MEDS: INSULIN GLARGINE SOLOSTAR 100 UNITS/ML 3 ML PEN SC SCH (18:48)
--- NOTE | 2017-04-20 20:20 | Orthopedic Consultation ---
Orthopedic Consultation Date of Consultation: Apr 20, 2017. Attending Physician: Eliseo Rucker M.D. Reason for Consultation: Right proximal humerus fracture, Right femoral neck fracture. History of Present Illness Patient seen at bedside, appear comfortable, minimally verbal, poor historian, patient unable to provide details of her fall/injury/ambulatory status. Past Medical/Surgical History Medical Problems: (1) Altered mental status Status: Acute (2) CHF (congestive heart failure) Status: Acute (3) CHF (congestive heart failure) Status: Acute (4) COPD (chronic obstructive pulmonary disease) Status: Acute (5) Fall Status: Acute (6) Hip fracture, right Status: Acute (7) Hypoxia Status: Acute (8) Hypoxia Status: Acute (9) PNA (pneumonia) Status: Acute (10) Pulmonary edema Status: Acute (11) Respiratory failure Status: Acute (12) Right humeral fracture Status: Acute (13) Sepsis Status: Acute Family History Unobtainable due to patient's condition Social History Smoking Status: Former Smoker Drug Use: none Marital Status: Housing Status: skilled nursing Occupation Status: retired Allergies Coded Allergies: RICHARD Inhibitors (Verified Allergy, Unknown, unknown, 02/11/17) Aspirin (Verified Allergy, Unknown, unknown, 02/11/17) [place] Atenolol (Verified Allergy, Unknown, unknown; TAKES TOPROL XL W/O PROBLEM , 02/11/17) Cefprozil (Verified Allergy, Unknown, unknown, 02/11/17) TOLERATED ROCEPHIN 02/2014 FOR MULTIPLE DOSES Ciprofloxacin (Verified Allergy, Unknown, unknown, 02/11/17) Codeine (Verified Allergy, Unknown, unknown, 02/11/17) Fluticasone (Verified Allergy, Unknown, Unknown, 02/11/17) Furosemide (Verified Allergy, Unknown, ., 02/11/17) Hydrochlorothiazide (Verified Allergy, Unknown, unknown, 02/11/17) Hydrochlorothiazide w/Triamterene (Verified Allergy, Unknown, unknown, 02/11/17) Ibuprofen (Verified Allergy, Unknown, unknown; HAS TAKEN ASA W/O PROBLEM, 02/11/17) Lisinopril (Verified Allergy, Unknown, unknown, 02/11/17) Meperidine (Verified Allergy, Unknown, unknown, 02/11/17) Niacinamide (Verified Allergy, Unknown, NICOTINAMIDE, 02/11/17) Penicillins (Verified Allergy, Unknown, UNKNOWN, 02/11/17) TOLERATED ROCEPHIN 02/2014 FOR MULTIPLE DOSES, TOLERATED ZOSYN 08/26/2012-08/30 Quinolones (Verified Allergy, Unknown, 02/11/17) Rofecoxib (Verified Allergy, Unknown, unknown, 02/11/17) Salmeterol (Verified Allergy, Unknown, Unknown, 02/11/17) Spironolactone (Verified Allergy, Unknown, unknown, 02/11/17) Statins (Verified Allergy, Unknown, unknown, 02/11/17) Sulfa Antibiotics (Verified Allergy, Unknown, ., 02/11/17) Home Medications Scheduled Albuterol Sulf (Proventil 0.083% 2.5MG/3ML), 2.5 MG INH Q6H Alendronate Sodium (Alendronate Sodium), 70 MG PO WK Amlodipine (Norvasc), 5 MG PO DAILY Apixaban (Eliquis), 2.5 MG PO BID Ascorbic Acid (Ascorbic Acid), 25 MG PO DAILY Atorvastatin (Lipitor), 40 MG PO QPM Bacitracin/Polymyxin B (Polysporin), 1 APPLN TOP QPM Bacitracin/Polymyxin B (Polysporin), 1 APPLN TOP QPM Bepotastine Besilate (Bepreve), 1 DROP OPB BID Budesonide/Formoterol Fumarate (Symbicort 160/4.5 Inhaler ), 2 PUFFS INH BID Bumetanide (Bumetanide), 2.5 MG PO BID Calcium Carbonate-Vitamin D (Oscal 500/200 D-3), 1 TAB PO BID Cholecalciferol (Vitamin D3), 2,000 UNITS PO DAILY Digoxin (Digoxin), 0.125 MG PO HS Fentanyl (Fentanyl), 25 MCG TD [id number] Ferrous Sulfate (Ferrous Sulfate), 7.5 ML PO DAILY Gabapentin (Neurontin), 600 MG PO TID Guaifenesin (Guaifenesin), 10 ML PO TID Home O2 Therapy (Oxygen), 3 LITER NA CONTINOUS Insulin Aspart (Novolog Penfill), 6 UNITS SC AC Insulin Aspart (Novolog), 100 SC DIRECTED Insulin Glargine (Lantus Solostar), 24 UNITS SC QPM Lactobacillus (Lactobacillus), 1 TAB PO BID Latanoprost (Xalatan 0.005% Oph Anna), 1 DROPS OPB HS Levothyroxine Sodium (Levothyroxine Sodium), 25 MCG PO Q2D Magnesium Oxide (Mag-Ox), 400 MG PO BID Metoprolol Tartrate (Lopressor) (Lopressor), 25 MG PO BID Multivitamins/Minerals (Mvi With Minerals), 1 TAB PO DAILY Potassium Chloride (Potassium Chloride), 20 MEQ PO BID Ranitidine Hcl (Zantac), 150 MG PO BID Ropinirole (Requip), 0.5 MG PO DAILY Saline (Saline Nasal [place]), 2 SPRAYS ADELA BID Sertraline (Zoloft), 50 MG PO HS Umeclidinium-Vilanterol (Anoro Ellipta 62.5-25 Mcg/INH), 1 INHA PO QAM Scheduled PRN Acetaminophen (Tylenol), 1 SUPP DC Q6H PRN for temp > 101 Acetaminophen Tab (Tylenol), 650 MG PO Q4 PRN for Pain or Fever Current Inpatient Medications Current Inpatient Medications Medications (Trade) Dose Ordered Sig/Tariq Route Start Time Stop Time Status Last Admin Dose Admin Heparin Sodium (Porcine) (Heparin Sq 5000 Unit/0.5ml) 5,000 unit Q12H SQ 04/20/17 09:00 05/20/17 08:59 04/20/17 09:07 5,000 UNIT Albuterol/ Ipratropium (Duoneb) 3 ml Q4RWA INH 04/20/17 08:00 05/20/17 07:59 04/20/17 15:45 3 ML Potassium Chloride/Sodium Chloride 1,000 ml @ 100 mls/hr Q10H IV 04/20/17 04:30 05/20/17 04:29 04/20/17 15:50 100 MLS/HR Acetaminophen (Tylenol Supp) 650 mg Q6H PRN DC 04/20/17 03:00 05/20/17 02:59 Latanoprost (Xalatan Oph Soln) 1 drops HS OPB 04/20/17 21:00 05/20/17 20:59 Sodium Chloride ([place] Nasal [place]) 2 sprays BID ADELA 04/20/17 09:00 05/20/17 08:59 Pantoprazole Sodium 40 mg/ Syringe 10 ml @ 5 mls/min DAILY@11 IV 04/20/17 11:00 05/20/17 10:59 04/20/17 11:13 5 MLS/MIN Miscellaneous Information (Consult) 1 ea UD PRN N/A 04/20/17 03:00 05/20/17 02:59 Aztreonam 1000 mg/ Dextrose 110 ml @ 100 mls/hr Q8H IV 04/20/17 10:00 04/27/17 09:59 04/20/17 18:17 100 MLS/HR Acetaminophen 650 mg/Empty Bag 65 ml @ 260 mls/hr Q6H PRN IV 04/20/17 03:15 05/20/17 03:14 Bisacodyl (Dulcolax Supp) 10 mg DAILY DC 04/20/17 09:00 05/20/17 08:59 04/20/17 09:05 10 MG Budesonide (Pulmicort Respules 0.5MG/ 2ML Neb Soln) 0.5 mg BIDR INH 04/20/17 08:00 05/20/17 07:59 04/20/17 07:49 0.5 MG Insulin Aspart (novoLOG ASPART) SLIDING SCALE If C... Q6 SC 04/20/17 12:00 05/20/17 11:59 04/20/17 18:48 1 UNITS Glucose (Glucose 40% Gel) 15-30 GRAMS 15 GRAMS... UD PRN PO 04/20/17 09:15 05/20/17 09:14 Glucose (Glucose Chew Tab) 4-8 Tablets 4 Tabl... UD PRN PO 04/20/17 09:15 05/20/17 09:14 Dextrose (Dextrose 50% 50ML Syringe) 25-50ML OF 50% DW IV FOR... UD PRN IV 04/20/17 09:15 05/20/17 09:14 Glucagon (Glucagon Inj) 1 mg UD PRN SQ 04/20/17 09:15 05/20/17 09:14 Miscellaneous Information (Consult Glycemic Management Pharmacy) 1 ea UD PRN N/A 04/20/17 10:22 05/20/17 10:21 Vancomycin HCl 1000 mg/Sodium Chloride 270 ml @ 125 mls/hr Q24H IV 04/21/17 04:00 04/27/17 03:59 Insulin Glargine (Lantus Solostar Pen) 24 units Q24H SC 04/20/17 18:00 05/20/17 17:59 04/20/17 18:48 24 UNITS Review of Systems Unable to obtain due to patients underlying dementia. Physical Exam Date Time Temp Pulse Resp B/P (MAP) Pulse Ox O2 Delivery O2 Flow Rate FiO2 04/20/17 15:45 95 Oxymask 4.0 04/20/17 15:45 65 14 95 Mask 4.0 04/20/17 15:31 36.8 70 20 128/69 (88) 95 Oxymask 4.0 04/20/17 14:07 73 16 96 Oxymask 4.0 04/20/17 11:15 62 14 96 Mask 4.0 04/20/17 10:06 96 Oxymask 4.0 04/20/17 08:50 36.6 04/20/17 08:39 36.1 64 14 129/68 (88) 96 Oxymask 4.0 04/20/17 07:49 64 12 96 Mask 4.0 04/20/17 07:40 Oxymask 4.0 04/20/17 04:05 36.6 64 18 121/61 94 Mask 4.0 04/20/17 03:47 65 18 107/44 95 Room Air 04/20/17 02:13 69 19 92 Nasal Cannula 4.0 04/20/17 02:02 129/32 04/20/17 01:32 105/42 04/20/17 01:13 77 18 04/20/17 01:04 152/67 04/20/17 01:02 176/66 04/20/17 00:58 103/68 04/20/17 00:51 83 04/20/17 00:46 107/42 04/20/17 00:43 36.4 84 23 107/42 79 Room Air AOx1, NAD Limited secondary to underlying mental status. RUE NV intact, + 2 radial pulse , compartment soft NT, skin intact RLE NV intact, +DP pulse, compartments soft NT, skin intact, AK amputation, stump is without sores or ecchymosis. Laboratory Results Last 24 Hours Test 04/20/17 01:15 04/20/17 01:20 04/20/17 01:24 04/20/17 01:26 Urine Color YELLOW Urine Appearance CLEAR Urine pH 7.0 Urine Specific [place] 1.011 Urine Protein NEG Urine Glucose (UA) NEG Urine Ketones NEG Urine Occult Blood NEG Urine Nitrite NEG Urine Bilirubin NEG Urine Urobilinogen NEG Urine Leukocyte Esterase TRACE Urine WBC (Auto) 1-5 /hpf Urine RBC (Auto) 0-4 /hpf Urine Hyaline Casts (Auto) 1-5 /lpf Urine Epithelial Cells (Auto) >30 /lpf Urine Bacteria (Auto) NEG Digoxin Level 1.5 ng/ml Bedside Lactic Acid Venous 2.30 mmol/L White Blood Count 22.09 K/uL Red Blood Count 4.74 M/uL Hemoglobin 14.3 g/dL Hematocrit 45.9 % Mean Corpuscular Volume 96.8 fL Mean Corpuscular Hemoglobin 30.2 pg Mean Corpuscular Hemoglobin Concent 31.2 g/dl Platelet Count 236 K/uL Mean Platelet Volume 11.5 fL Neutrophils (%) (Auto) 89.0 % Lymphocytes (%) (Auto) 2.8 % Monocytes (%) (Auto) 7.6 % Eosinophils (%) (Auto) 0.1 % Basophils (%) (Auto) 0.1 % Neutrophils # (Auto) 19.65 K/uL Lymphocytes # (Auto) 0.62 K/uL Monocytes # (Auto) 1.68 K/uL Eosinophils # (Auto) 0.03 K/uL Basophils # (Auto) 0.02 K/uL RDW Standard Deviation 61.5 fL RDW Coefficient of Variation 17.2 % Immature Granulocyte % (Auto) 0.4 % Immature Granulocyte # (Auto) 0.09 K/uL Prothrombin Time 11.9 SECONDS Prothromb Time International Ratio 1.1 Activated Partial Thromboplast Time 29.3 SECONDS Partial Thromboplastin Ratio 1.1 Sodium Level 142 mmol/L Potassium Level 4.3 mmol/L Chloride Level 99 mmol/L Carbon Dioxide Level 36 mmol/L Anion Gap 7.0 mmol/L Blood Urea Nitrogen 27 mg/dl Creatinine 1.07 mg/dl Est Creatinine Clear Calc Drug Dose 38.4 ml/min Estimated GFR () 53.7 Estimated GFR (Non- 46.3 BUN/Creatinine Ratio 25.5 Random Glucose 219 mg/dl Calcium Level 10.0 mg/dl Total Bilirubin 1.0 mg/dl Direct Bilirubin 0.3 mg/dl Aspartate Amino Transf (AST/SGOT) 30 U/L Alanine Aminotransferase (ALT/SGPT) 23 U/L Alkaline Phosphatase 204 U/L Total Creatine Kinase 124 U/L Troponin I 0.078 ng/ml Pro-B-Type Natriuretic Peptide 3355 pg/ml Total Protein 7.7 gm/dl Albumin 2.8 gm/dl Test 04/20/17 06:44 04/20/17 12:03 04/20/17 18:20 Bedside Glucose 224 mg/dl 209 mg/dl 183 mg/dl Assessment & Plan Right proximal humerus fracture, Right femoral neck fracture. The patient is unable to communicate or make her medical decision in regards to her care. Her proximal humerus fracture can be treated non-operatively with sling immobilization followed by gentle ROM exercises with PT. She should be made NWB RUE. For her right femoral neck fracture, her options include hip hemiarthroplasty, resection arthroplasty for pain control or non-operative treatment if medical unstable. Surgery will not change her ambulatory status but may provide significant pain relief for palliative reasons depending on the goals of the family/POA. She should be made NWB RLE. Given the patients current medial and non-ambulatory status, will need to discuss the patients treatment options more in detail with POA. Attempt was made to reach POA but was unsuccessful. Thank you for the consultation. [~ rep ct add3]] R FEMUR 2 VIEWS ROUTINE CLINICAL HISTORY: right hip fx trauma. Pain. COMPARISON: None. DISCUSSION: Subcapital fracture right hip. No evidence for acetabular protrusion. 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 Generalized osteopenia/osteoporosis. There is no evidence for soft tissue swelling. IMPRESSION: Subcapital fracture right hip. PELVIS ONE VIEW HISTORY: right hip injury COMPARISON: None. FINDINGS: Slightly impacted right femoral neck fracture. No dislocation. The visualized pelvic bones and left hip are intact. There is a large amount of stool seen within the colon rectum. The rectum is distended up to 11 cm. Soft tissues are unremarkable. No radiopaque foreign bodies. IMPRESSION: 1. Right femoral neck fracture. 2. Large amount of stool within the colon and rectum. This may represent fecal impaction.
[2017-04-20] MEDS: LATANOPROST 0.005% OP SOLN 2.5 ML BTL OPB SCH (21:20)
[2017-04-21] VITALS (8 sets, daily range): BP systolic 139–174; BP diastolic 62–74; PULSE 84–92; TEMP 36.3–37; O2SAT 77–100
[2017-04-21] MEDS: AZTREONAM IV 1,000 MG in DEXTROSE 5% 100ML 100 ML IV SCH ×3 (02:29→18:23)
[2017-04-21] MEDS: NSS + 20MEQ KCL 1000ML 1,000 ML IV SCH ×2 (02:29→09:38)
[2017-04-21] MEDS ORDERED: VANCOMYCIN INJ 1,000 MG in SODIUM CHLORIDE 0.9% 250ML 250 ML IV SCH (04:00)
[2017-04-21] MEDS: INSULIN ASPART 100 UNITS/ML 3 ML PEN SC SCH ×3 (06:00→17:39)
[2017-04-21 07:08] LABS: CREATININE 0.56 mg/dl (0.60-1.20)
[2017-04-21] MEDS: BUDESONIDE 0.5 MG/2 ML VIAL (PULMICORT) INH SCH ×2 (07:34→20:30)
[2017-04-21] MEDS: ALBUT/IPRATROP 3MG/0.5MG NEB 3 ML VIAL INH SCH ×4 (07:34→20:30)
--- NOTE | 2017-04-21 08:35 | Clinical Documentation Query ---
QUERY 1 OF [address] ALMONTE, In your clinical opinion is this patient being managed for: ( x ) possible/suspected gram negative or MRSA Pneumonia ( ) Not Agree ( ) Other explanation of clinical findings (Please Explain) ( ) Unable to determine (Please Define) ( ) Need to Discuss The medical record reflects the following clinical findings, treatment, and risk factors. Clinical Indicators: 87 yo female, resident of [facility], who presented with bilateral pneumonia, respiratory failure and altered mental status. Hypoxic with O2 sat of 79% on RA. CXR with diffused infiltrative findings throughout left lung. WBC 22.09, neuts 19.65 Treatment: IV vancomcycin, IV aztreonam, IV fluids, nebs, O2 support, sputum gram stain and cx pending Risk Factors: age, COPD, retirement resident, DM QUERY 2 OF 3 In your clinical opinion is this patient being managed for: ( x ) Metabolic encephalopathy ( ) Not Agree ( ) Other explanation of clinical findings (Please Explain) ( ) Unable to determine (Please Define) ( ) Need to Discuss The medical record reflects the following clinical findings, treatment, and risk factors. Clinical Indicators:Pt presented with an altered mental status. CT head without acute findings. WBC 22.09, Cr 1.07 (baseline is 0.40-0.50 range), O2 sat 79% on RA. Treatment: O2 support, IV fluids, IV vancomycin, IV aztreonam, nebs, Risk Factors: bilateral pneumonia, hypoxia, acute renal failure QUERY 3 OF 3 In your clinical opinion is this patient being managed for: ( ) Acute kidney failure (x ) Not Agree ( ) Other explanation of clinical findings (Please Explain) ( ) Unable to determine (Please Define) ( ) Need to Discuss The medical record reflects the following clinical findings, treatment, and risk factors. Clinical Indicators: Initial Cr 1.07, GFR 46.3. Review of baseline Cr showed range of 0.40-0.50 with GFR of 83-105 Treatment: IV fluids, serial PRP's, O2 support, IV antibiotics Risk Factors: bilateral pneumonia, dehydration, DM, age Please clarify and document your clinical opinion in the progress notes and discharge summary. Terms such as "probable", "suspected", "likely", "questionable", "possible", or "still to be ruled out" are acceptable. IF IN AGREEMENT, YOU MUST DOCUMENT ABOVE DIAGNOSTIC STATEMENT IN DAILY PROGRESS NOTES AND DISCHARGE SUMMARY. This document is not part of the patient's record. Thank You, Alexa Cavanaugh RN [phone]
[2017-04-21] MEDS: BISACODYL 10 MG SUPP PR SCH (09:00)
[2017-04-21] MEDS: SODIUM CHLORIDE 0.65% NA SOLN 45 ML (OCEAN) NAE SCH ×2 (09:00→21:26)
[2017-04-21] MEDS: HEPARIN SOD 5000 UNIT/0.5 ML CARP SQ SCH ×2 (09:14→21:26)
[2017-04-21] MEDS: PANTOprazole INJ 40 MG in SYRINGE 0 ML IV SCH (11:25)
--- NOTE | 2017-04-21 11:46 | Pharmacy Progress Note ---
Pharmacy Abx Dose Short Note Date of Service Apr 21, 2017. Assessment & Plan Assessment 87 year old female receiving vancomycin/aztreonam for treatment of pneumonia. Day # 2/7 of antimicrobial therapy. Serum creatinine back to baseline. Will increase vancomycin to dose used on previous admissions. Plan Vancomycin * Change to 1250 mg IV every 16 hours * Goal trough level for possible pneumonia: 15-20 mcg/mL * Trough ordered for: 04/23/17 before 0200 dose. Pharmacy will continue to follow and will adjust dose/frequency as necessary. Thank you.
--- NOTE | 2017-04-21 12:03 | Pharmacy Progress Note ---
Glycemic Control Intl Consult Date of Service Apr 21, 2017. Scope Glycemic Pharmacist consulted by Dr Rucker on 04/20/17 for glycemic control and to write orders per [facility] inpatient glycemic control protocol Objective Weight (Kilograms): 82.700 Accuchecks BSG (last 24hrs): Test 04/20/17 12:03 04/20/17 18:20 04/20/17 23:35 04/21/17 06:14 Bedside Glucose 209 mg/dl (70-90) 183 mg/dl (70-90) 162 mg/dl (70-90) 154 mg/dl (70-90) Laboratory Data (last 24hrs) Test 04/21/17 06:06 Creatinine 0.56 mg/dl HbA1c 7.2% on 02/12/18 Recent Pertinent Medications Outpatient Anti-diabetic Regimen: * Lantus 24 units SQ PM * NovoLog 6 units SQ AC + SSI The patient is currently receiving: * Basal insulin: Lantus 24 units every 24 hours given at bedtime * Correctional Insulin: Novolog Correction per scale ACHS Goal Range: Low 140 mg/dL - High 170 mg/dL Correction Factor: 35 mg/dL/unit * Prandial insulin: Per carb ratio of 1 unit per 11 grams CHO consumed {not receiving as pt NPO} Assessment & Plan ASSESSMENT: * 87yo T2DM female known to pharmacy from previous admissions/glycemic consults * Pt with adequate glycemic control on outpatient regimen per recent A1c * Outpatient regimen is appropriately split 50%basal: 50%prandial insulin therefore, outpatient basal insulin dosing was continued on admission despite NPO status * AM fasting BSG is in goal range at 154 mg/dl --> no changes needed to basal insulin * Pt NPO therefore, unable to assess CR. Current NovoLog parameters are more conservative than those used in previous admissions d/t NPO. Once diet is resumed, CF/CR may need tightened/increased. PLAN FOR INPATIENT GLYCEMIC CONTROL: no changes needed at this time * Basal insulin with Lantus 24 units SQ Q24hrs given at bedtime (this is outpatient dosing_ * Bolus insulin * NovoLog per scale ACHS or Q6hrs while NPO * Goal Range: Low 140 mg/dL - High 170 mg/dL (slightly higher goal range based on age and NPO) * Correction Factor: 35 mg/dL/unit * Nutritional / Prandial insulin per carb ratio of 1 unit per 11 grams CHO consumed * Please note that the plan above was derived based on current level of insulin resistance and hospital stress. These recommendations are appropriate for inpatient admission only. Plan of care upon discharge will need to be reassessed to avoid potential outpatient hypo/hyperglycemia. Thank you.
[2017-04-21] MEDS: ACETAMINOPHEN IV 650 MG in EMPTY BAG 0 ML IV PRN (14:22)
[2017-04-21] MEDS: VANCOMYCIN INJ 1,250 MG in SODIUM CHLORIDE 0.9% 250ML 250 ML IV SCH (15:56)
[2017-04-21] MEDS: INSULIN GLARGINE SOLOSTAR 100 UNITS/ML 3 ML PEN SC SCH (17:40)
[2017-04-21] MEDS: LATANOPROST 0.005% OP SOLN 2.5 ML BTL OPB SCH (21:27)
[2017-04-22] VITALS (9 sets, daily range): BP systolic 153–163; BP diastolic 66–75; PULSE 86–110; TEMP 36.6–36.7; O2SAT 90–98
[2017-04-22] MEDS: NSS + 20MEQ KCL 1000ML 1,000 ML IV SCH ×3 (00:24→22:35)
[2017-04-22] MEDS: ACETAMINOPHEN IV 650 MG in EMPTY BAG 0 ML IV PRN (00:25)
[2017-04-22] MEDS: AZTREONAM IV 1,000 MG in DEXTROSE 5% 100ML 100 ML IV SCH ×3 (01:55→19:04)
[2017-04-22] MEDS ORDERED: VANCOMYCIN TROUGH ONE ×2 (03:30→23:30)
[2017-04-22] MEDS: INSULIN ASPART 100 UNITS/ML 3 ML PEN SC SCH ×4 (05:52→18:49)
[2017-04-22] MEDS: BISACODYL 10 MG SUPP PR SCH (07:07)
[2017-04-22 07:12] LABS: CREATININE 0.4 mg/dl (0.60-1.20)
[2017-04-22] MEDS: ALBUT/IPRATROP 3MG/0.5MG NEB 3 ML VIAL INH SCH ×4 (07:26→19:58)
[2017-04-22] MEDS: BUDESONIDE 0.5 MG/2 ML VIAL (PULMICORT) INH SCH ×2 (07:26→19:58)
[2017-04-22] MEDS: SODIUM CHLORIDE 0.65% NA SOLN 45 ML (OCEAN) NAE SCH ×2 (08:01→20:43)
[2017-04-22] MEDS: VANCOMYCIN INJ 1,250 MG in SODIUM CHLORIDE 0.9% 250ML 250 ML IV SCH (08:01)
[2017-04-22] MEDS: HEPARIN SOD 5000 UNIT/0.5 ML CARP SQ SCH ×2 (08:17→20:42)
--- NOTE | 2017-04-22 08:40 | Progress Note ---
Subjective Date of Service: Apr 21, 2017. Subjective Pt evaluation today including: conversation w/ patient Patient seen on Apr 21, 2017. Patient appears very somnolent. She just answers yes and no questions. She is found resting in her bed. She opens her eyes briefly to answer questions and then quickly closes them. She reports she still feels lousy, but does not provide more history. Problem List Medical Problems: (1) Altered mental status Status: Acute (2) CHF (congestive heart failure) Status: Acute (3) CHF (congestive heart failure) Status: Acute (4) COPD (chronic obstructive pulmonary disease) Status: Acute (5) Fall Status: Acute (6) Hip fracture, right Status: Acute (7) Hypoxia Status: Acute (8) Hypoxia Status: Acute (9) PNA (pneumonia) Status: Acute (10) Pulmonary edema Status: Acute (11) Respiratory failure Status: Acute (12) Right humeral fracture Status: Acute (13) Sepsis Status: Acute Review of Systems All Other Systems: Reviewed and Negative Medications Current Inpatient Medications Medications (Trade) Dose Ordered Sig/Tariq Route Start Time Stop Time Status Last Admin Dose Admin Heparin Sodium (Porcine) (Heparin Sq 5000 Unit/0.5ml) 5,000 unit Q12H SQ 04/20/17 09:00 05/20/17 08:59 04/22/17 08:17 5,000 UNIT Albuterol/ Ipratropium (Duoneb) 3 ml Q4RWA INH 04/20/17 08:00 05/20/17 07:59 04/22/17 07:26 3 ML Potassium Chloride/Sodium Chloride 1,000 ml @ 100 mls/hr Q10H IV 04/20/17 04:30 05/20/17 04:29 04/22/17 00:24 100 MLS/HR Acetaminophen (Tylenol Supp) 650 mg Q6H PRN AK 04/20/17 03:00 05/20/17 02:59 Latanoprost (Xalatan Oph Soln) 1 drops HS OPB 04/20/17 21:00 05/20/17 20:59 04/21/17 21:27 1 DROPS Sodium Chloride ([place] Nasal [place]) 2 sprays BID ADELA 04/20/17 09:00 05/20/17 08:59 04/21/17 21:26 2 SPRAYS Pantoprazole Sodium 40 mg/ Syringe 10 ml @ 5 mls/min DAILY@11 IV 04/20/17 11:00 05/20/17 10:59 04/21/17 11:25 5 MLS/MIN Miscellaneous Information (Consult) 1 ea UD PRN N/A 04/20/17 03:00 05/20/17 02:59 Aztreonam 1000 mg/ Dextrose 110 ml @ 100 mls/hr Q8H IV 04/20/17 10:00 04/27/17 09:59 04/22/17 01:55 100 MLS/HR Acetaminophen 650 mg/Empty Bag 65 ml @ 260 mls/hr Q6H PRN IV 04/20/17 03:15 05/20/17 03:14 04/22/17 00:25 260 MLS/HR Bisacodyl (Dulcolax Supp) 10 mg DAILY AK 04/20/17 09:00 05/20/17 08:59 04/20/17 09:05 10 MG Budesonide (Pulmicort Respules 0.5MG/ 2ML Neb Soln) 0.5 mg BIDR INH 04/20/17 08:00 05/20/17 07:59 04/22/17 07:26 0.5 MG Insulin Aspart (novoLOG ASPART) SLIDING SCALE If C... Q6 SC 04/20/17 12:00 05/20/17 11:59 04/21/17 17:39 1 UNITS Glucose (Glucose 40% Gel) 15-30 GRAMS 15 GRAMS... UD PRN PO 04/20/17 09:15 05/20/17 09:14 Glucose (Glucose Chew Tab) 4-8 Tablets 4 Tabl... UD PRN PO 04/20/17 09:15 05/20/17 09:14 Dextrose (Dextrose 50% 50ML Syringe) 25-50ML OF 50% DW IV FOR... UD PRN IV 04/20/17 09:15 05/20/17 09:14 Glucagon (Glucagon Inj) 1 mg UD PRN SQ 04/20/17 09:15 05/20/17 09:14 Miscellaneous Information (Consult Glycemic Management Pharmacy) 1 ea UD PRN N/A 04/20/17 10:22 05/20/17 10:21 Insulin Glargine (Lantus Solostar Pen) 24 units Q24H SC 04/20/17 18:00 05/20/17 17:59 04/21/17 17:40 24 UNITS Vancomycin HCl 1250 mg/Sodium Chloride 275 ml @ 125 mls/hr Q16H IV 04/21/17 16:00 04/27/17 04:59 04/22/17 08:01 125 MLS/HR Objective Vital Signs Date Time Temp Pulse Resp B/P (MAP) Pulse Ox O2 Delivery O2 Flow Rate FiO2 04/22/17 07:33 36.7 87 18 163/66 (98) 96 3.0 04/22/17 07:28 86 16 97 Mask 3.0 04/21/17 23:35 37.0 88 16 139/62 (87) 99 Oxymask 3.0 04/21/17 20:36 88 16 97 Mask 4.0 04/21/17 20:00 Oxymask 4.0 04/21/17 19:53 90 164/72 (102) 93 Oxymask 4.0 04/21/17 16:06 90 16 97 Mask 4.0 04/21/17 15:48 36.3 92 18 174/74 (107) 100 Oxymask 4.0 04/21/17 11:18 91 16 77 Room Air Physical Exam Comments: The patient is somnolent but does respond to verbal stimuli. She is normocephalic and atraumatic, lying in bed and in no acute distress. HEENT--PERRL, EOMI, mucous membranes and oropharynx dry. Neck--supple. No JVD. No bruits. Thyroid normal, trachea midline, no adenopathy. Heart--normal S1 and S2. No murmurs, rubs or gallops. Lungs--coarse breath sounds bilaterally, no respiratory distress, no accessory muscle use. Abdomen--normal bowel sounds and soft. Nontender. Nondistended, no hernias or masses. Extremities--right AKA. No edema. There is a diminished pulse on the left. Dermatologic--normal skin turgor, normal color, no abnormal lymph nodes, no rash. Neurologic--cranial nerves II through XII grossly intact. Laboratory Results Last 24 Hours Test 04/21/17 11:57 04/21/17 17:31 04/22/17 00:24 04/22/17 05:33 Bedside Glucose 194 mg/dl 181 mg/dl 159 mg/dl Creatinine 0.40 mg/dl Est Creatinine Clear Calc Drug Dose 103.3 ml/min Estimated GFR () 107.8 Estimated GFR (Non- 93.0 Test 04/22/17 05:40 Bedside Glucose 148 mg/dl Assessment and Plan Acute respiratory failure with hypoxia/bilateral pneumonia left worse than right -- Vancomycin IV per pharmacokinetic monitoring Cefepime 1 g IV every 8 hours Duonebs every 4 hours while awake and every 2 hours when necessary. Pulmicort Respules 0.5 mg inhaled twice daily Nasal cannula oxygen titrate to keep pulse ox greater than or equal to 92% Sputum Gram stain and culture. Multiple fractures: right humeral fracture displaced with right femoral neck fracture. Patient is unlikely to be a candidate for surgery. Consulted ortho. They will discuss options with family. Unlikely to recommend surgery given her poor quality of life. Altered mental state-- Likely metabolic encephalopathy. May be attributed to problem one. Will monitor Atrial fibrillation/hypertension-- N.p.o. status due to altered mentation. Holding all medications including amlodipine, apixaban, atorvastatin, bumetanide , mag oxide, metoprolol tartrate, and potassium chloride. Change digoxin to 0.125 mg IV at bedtime. Diabetes mellitus-- consulted glycemic control. 24 units of insulin glargine Glaucoma-- Continue all eyedrops including Bepreve, and Xalatan. Chronic pain syndrome-- Patch as noted above due to possible oversedation. GERD-- Change to pantoprazole 40 mg IV daily. CODE STATUS: DNR Disp.: Patient will get palliative care consult as she has multiple comorbidities and has been bedridden. Unlikely to see recovery from patient to have meaningful quality of life as she was already bedridden, prior to this bout of pneumonia and fractures. Will await decisions from family tomorrow./
[2017-04-22 09:19] LABS: HEMATOCRIT 34.9 % (37-47); HEMOGLOBIN 10.6 g/dL (12.0-16.0); MEAN CELL VOLUME 96.4 fL (80-100); MEAN CORPUSCULAR HEMOGLOBIN 29.3 pg (25-34); MEAN CORPUSCULAR HGB CONC 30.4 g/dl (32-36); MEAN PLATELET VOLUME 11.8 fL (7.4-10.4); PLATELET COUNT 123 K/uL (130-400); RED CELL DISTRIBUTION WIDTH CV 17.9 % (11.5-14.5); RED CELL DISTRIBUTION WIDTH SD 63.4 fL (36.4-46.3); WHITE BLOOD COUNT 11.56 K/uL (4.8-10.8)
[2017-04-22 09:23] LABS: CALCIUM 8.8 mg/dl (8.5-10.1); CREATININE 0.42 mg/dl (0.60-1.20); POTASSIUM 3.3 mmol/L (3.5-5.1)
[2017-04-22] MEDS: PANTOprazole INJ 40 MG in SYRINGE 0 ML IV SCH (11:38)
--- NOTE | 2017-04-22 13:23 | Palliative Care Consultation ---
Consultation Date of Consultation: Apr 22, 2017. Requesting Physician: Dr. Rucker Attending Physician: Dr. Rucker Reason for Consultation: Goals of care History of Present Illness This 87 year old female patient with PMH Afib, cellulitis, CKD, COPD, DM obesity , dementia, and others listed below, presented to the hospital two days ago after a fall at the [facility] and subsequent right humerus and right hip fracture. Given patient's multiple comorbidities, advanced age, morbid obesity and already bedridden state, it was determined by orthopedic team and family that patient is too high risk and not a surgical candidate. Patient's sons, including Ra, are in agreement with comfort/hospice care, but the patient's daughter Jacinda is not. Palliative care is consulted to discuss goals of care. I met with the patient in room 304 this morning. She is awake, but nonverbal. She nodded "yes" to being in pain, but really cannot participate in any conversation. She is in no distress but does appear uncomfortable with furrowed brow and occasional look of tearfulness. Patient remains on abx for pneumonia. Her skin has scattered tears, scabs, and ecchymosis. She has right BKA. I called patient's son/POA, Hector Powell. Hector states that he really wants his mother to just be made comfortable and understands that she is not going to get better. He states that his sisters, especially Jacinda, are not on board with this. They believe that if we place patient on comfort/hospice care that she will "give up." He asked that I call Dot to try and talk things over with her. I called Dot 4-5 times and it rings busy. Will try again later. Past Medical/Surgical History Medical History: Afib Cellulitis CKD COPD CDM Heart disease HLD Htn MRSA PVD Obesity Right BKA Colonoscopy Social History Smoking Status: Former Smoker History of Alcohol Use: No Drug Use: none Marital Status: Housing Status: detention Occupation Status: retired Review of Systems unable to obtain ROS due to altered mental status Allergies Coded Allergies: RICHARD Inhibitors (Verified Allergy, Unknown, unknown, 02/11/17) Aspirin (Verified Allergy, Unknown, unknown, 02/11/17) [place] Atenolol (Verified Allergy, Unknown, unknown; TAKES TOPROL XL W/O PROBLEM , 02/11/17) Cefprozil (Verified Allergy, Unknown, unknown, 02/11/17) TOLERATED ROCEPHIN 02/2014 FOR MULTIPLE DOSES Ciprofloxacin (Verified Allergy, Unknown, unknown, 02/11/17) Codeine (Verified Allergy, Unknown, unknown, 02/11/17) Fluticasone (Verified Allergy, Unknown, Unknown, 02/11/17) Furosemide (Verified Allergy, Unknown, ., 02/11/17) Hydrochlorothiazide (Verified Allergy, Unknown, unknown, 02/11/17) Hydrochlorothiazide w/Triamterene (Verified Allergy, Unknown, unknown, 02/11/17) Ibuprofen (Verified Allergy, Unknown, unknown; HAS TAKEN ASA W/O PROBLEM, 02/11/17) Lisinopril (Verified Allergy, Unknown, unknown, 02/11/17) Meperidine (Verified Allergy, Unknown, unknown, 02/11/17) Niacinamide (Verified Allergy, Unknown, NICOTINAMIDE, 02/11/17) Penicillins (Verified Allergy, Unknown, UNKNOWN, 02/11/17) TOLERATED ROCEPHIN 02/2014 FOR MULTIPLE DOSES, TOLERATED ZOSYN 08/26/2012-08/30 Quinolones (Verified Allergy, Unknown, 02/11/17) Rofecoxib (Verified Allergy, Unknown, unknown, 02/11/17) Salmeterol (Verified Allergy, Unknown, Unknown, 02/11/17) Spironolactone (Verified Allergy, Unknown, unknown, 02/11/17) Statins (Verified Allergy, Unknown, unknown, 02/11/17) Sulfa Antibiotics (Verified Allergy, Unknown, ., 02/11/17) Medications Current Inpatient Medications Medications (Trade) Dose Ordered Sig/Tariq Route Start Time Stop Time Status Last Admin Dose Admin Heparin Sodium (Porcine) (Heparin Sq 5000 Unit/0.5ml) 5,000 unit Q12H SQ 04/20/17 09:00 05/20/17 08:59 04/22/17 08:17 5,000 UNIT Albuterol/ Ipratropium (Duoneb) 3 ml Q4RWA INH 04/20/17 08:00 05/20/17 07:59 04/22/17 11:12 3 ML Potassium Chloride/Sodium Chloride 1,000 ml @ 100 mls/hr Q10H IV 04/20/17 04:30 05/20/17 04:29 04/22/17 00:24 100 MLS/HR Acetaminophen (Tylenol Supp) 650 mg Q6H PRN MS 04/20/17 03:00 05/20/17 02:59 Latanoprost (Xalatan Oph Soln) 1 drops HS OPB 04/20/17 21:00 05/20/17 20:59 04/21/17 21:27 1 DROPS Sodium Chloride ([place] Nasal [place]) 2 sprays BID ADELA 04/20/17 09:00 05/20/17 08:59 04/21/17 21:26 2 SPRAYS Pantoprazole Sodium 40 mg/ Syringe 10 ml @ 5 mls/min DAILY@11 IV 04/20/17 11:00 05/20/17 10:59 04/22/17 11:38 5 MLS/MIN Miscellaneous Information (Consult) 1 ea UD PRN N/A 04/20/17 03:00 05/20/17 02:59 Aztreonam 1000 mg/ Dextrose 110 ml @ 100 mls/hr Q8H IV 04/20/17 10:00 04/27/17 09:59 04/22/17 10:47 100 MLS/HR Acetaminophen 650 mg/Empty Bag 65 ml @ 260 mls/hr Q6H PRN IV 04/20/17 03:15 05/20/17 03:14 04/22/17 00:25 260 MLS/HR Bisacodyl (Dulcolax Supp) 10 mg DAILY MS 04/20/17 09:00 05/20/17 08:59 04/20/17 09:05 10 MG Budesonide (Pulmicort Respules 0.5MG/ 2ML Neb Soln) 0.5 mg BIDR INH 04/20/17 08:00 05/20/17 07:59 04/22/17 07:26 0.5 MG Insulin Aspart (novoLOG ASPART) SLIDING SCALE If C... Q6 SC 04/20/17 12:00 05/20/17 11:59 04/21/17 17:39 1 UNITS Glucose (Glucose 40% Gel) 15-30 GRAMS 15 GRAMS... UD PRN PO 04/20/17 09:15 05/20/17 09:14 Glucose (Glucose Chew Tab) 4-8 Tablets 4 Tabl... UD PRN PO 04/20/17 09:15 05/20/17 09:14 Dextrose (Dextrose 50% 50ML Syringe) 25-50ML OF 50% DW IV FOR... UD PRN IV 04/20/17 09:15 05/20/17 09:14 Glucagon (Glucagon Inj) 1 mg UD PRN SQ 04/20/17 09:15 05/20/17 09:14 Miscellaneous Information (Consult Glycemic Management Pharmacy) 1 ea UD PRN N/A 04/20/17 10:22 05/20/17 10:21 Insulin Glargine (Lantus Solostar Pen) 24 units Q24H SC 04/20/17 18:00 05/20/17 17:59 04/21/17 17:40 24 UNITS Vancomycin HCl 1250 mg/Sodium Chloride 275 ml @ 125 mls/hr Q16H IV 04/21/17 16:00 04/27/17 04:59 04/22/17 08:01 125 MLS/HR Physical Exam Date Time Temp Pulse Resp B/P (MAP) Pulse Ox O2 Delivery O2 Flow Rate FiO2 04/22/17 11:12 86 16 96 Mask 3.0 04/22/17 08:00 Oxymask 3.0 04/22/17 07:33 36.7 87 18 163/66 (98) 96 3.0 04/22/17 07:28 86 16 97 Mask 3.0 04/21/17 23:35 37.0 88 16 139/62 (87) 99 Oxymask 3.0 04/21/17 20:36 88 16 97 Mask 4.0 04/21/17 20:00 Oxymask 4.0 04/21/17 19:53 90 164/72 (102) 93 Oxymask 4.0 04/21/17 16:06 90 16 97 Mask 4.0 04/21/17 15:48 36.3 92 18 174/74 (107) 100 Oxymask 4.0 General Appearance: + obese, + pertinent finding (chronically ill appearing) ENT: hearing grossly normal Neck: supple, no JVD Respiratory: no respiratory distress, no accessory muscle use, + decreased breath sounds, + pertinent finding (difficult to assess LS due to body habitus and inability to reposition in bed) Cardiovascular: regular rate, rhythm, + pertinent finding (right BKA, left pedal is palpable) Abdomen: normal bowel sounds, non tender, soft Neurologic/Psychiatric: alert, + pertinent finding (nonverbal at this time) Laboratory Results Last 24 Hours Test 04/21/17 17:31 04/22/17 00:24 04/22/17 05:33 04/22/17 05:40 Bedside Glucose 181 mg/dl 159 mg/dl 148 mg/dl White Blood Count 11.56 K/uL Red Blood Count 3.62 M/uL Hemoglobin 10.6 g/dL Hematocrit 34.9 % Mean Corpuscular Volume 96.4 fL Mean Corpuscular Hemoglobin 29.3 pg Mean Corpuscular Hemoglobin Concent 30.4 g/dl RDW Standard Deviation 63.4 fL RDW Coefficient of Variation 17.9 % Platelet Count 123 K/uL Mean Platelet Volume 11.8 fL Sodium Level 149 mmol/L Potassium Level 3.3 mmol/L Chloride Level 116 mmol/L Carbon Dioxide Level 16 mmol/L Anion Gap 17.0 mmol/L Blood Urea Nitrogen 15 mg/dl Creatinine 0.42 mg/dl Est Creatinine Clear Calc Drug Dose 98.3 ml/min Estimated GFR () 106.1 Estimated GFR (Non- 91.5 BUN/Creatinine Ratio 36.1 Random Glucose 142 mg/dl Calcium Level 8.8 mg/dl Test 04/22/17 11:59 Bedside Glucose 152 mg/dl Assessment & Plan Palliative Performance Scale: 20 % Problem list: Altered mental status/nonverbal Bedridden Bilateral pneumonia Right BKA Right humeral and hip fracture Multiple skin tears and bruising Hx COPD, obesity, DM, CAD, PVD Goals of care Palliative care recs: -Patient is DNR. -Non-surgical candidate for humeral and hip fractures. -Patient is bedridden and nonverbal at this point. Also not eating/drinking much at all. She appears uncomfortable and likely may be experiencing pain due to the fractures. Her pain medication was discontinued due to concerns for oversedation. -Even with treatment of pneumonia, patient is not improving. Further treatment to "get better" at this point may be futile as it causes patient to have lab work drawn, VS taken often, and lack of pain medicine. -At this juncture, comfort measures only or hospice care is recommended. Son/ POEvens Young is in agreement with this. However, his sisters are not. I attempted to call patient's daughter, Jacinda, 4-5 times and it is ringing "busy." Will try again later. Thank you for this consult, I will follow as needed. Total time spent 70 minutes with >50% of time spent talking with patient and family regarding goals of care and plan of care.
[2017-04-22] MEDS: INSULIN GLARGINE SOLOSTAR 100 UNITS/ML 3 ML PEN SC SCH (18:50)
[2017-04-22] MEDS: LATANOPROST 0.005% OP SOLN 2.5 ML BTL OPB SCH (20:45)
[2017-04-23] VITALS (12 sets, daily range): BP systolic 129–183; BP diastolic 76–89; PULSE 99–115; TEMP 36.4–37.5; O2SAT 93–98
[2017-04-23] MEDS: VANCOMYCIN INJ 1,250 MG in SODIUM CHLORIDE 0.9% 250ML 250 ML IV SCH ×2 (00:02→14:27)
[2017-04-23] MEDS ORDERED: VANCOMYCIN TROUGH ONE (01:30)
[2017-04-23] MEDS: AZTREONAM IV 1,000 MG in DEXTROSE 5% 100ML 100 ML IV SCH ×3 (02:10→18:43)
[2017-04-23] MEDS: NSS + 20MEQ KCL 1000ML 1,000 ML IV SCH (05:16)
[2017-04-23] MEDS: INSULIN ASPART 100 UNITS/ML 3 ML PEN SC SCH ×5 (05:58→21:30)
[2017-04-23] MEDS: ALBUT/IPRATROP 3MG/0.5MG NEB 3 ML VIAL INH SCH ×4 (07:10→19:48)
[2017-04-23] MEDS: BUDESONIDE 0.5 MG/2 ML VIAL (PULMICORT) INH SCH ×2 (07:10→19:48)
[2017-04-23 07:14] LABS: CREATININE 0.36 mg/dl (0.60-1.20)
[2017-04-23] MEDS ORDERED: NURSING VERBAL MED ORDER ONE (07:15)
[2017-04-23] MEDS: D5W AND NSS 1,000 ML IV SCH ×2 (07:58→18:09)
--- NOTE | 2017-04-23 09:15 | Progress Note ---
Subjective Date of Service: Apr 22, 2017. Subjective Patient is nonverbal, and does not provide significant history today. Problem List Medical Problems: (1) Altered mental status Status: Acute (2) CHF (congestive heart failure) Status: Acute (3) CHF (congestive heart failure) Status: Acute (4) COPD (chronic obstructive pulmonary disease) Status: Acute (5) Fall Status: Acute (6) Hip fracture, right Status: Acute (7) Hypoxia Status: Acute (8) Hypoxia Status: Acute (9) PNA (pneumonia) Status: Acute (10) Pulmonary edema Status: Acute (11) Respiratory failure Status: Acute (12) Right humeral fracture Status: Acute (13) Sepsis Status: Acute Review of Systems All Other Systems: Reviewed and Negative Medications Current Inpatient Medications Medications (Trade) Dose Ordered Sig/Tariq Route Start Time Stop Time Status Last Admin Dose Admin Heparin Sodium (Porcine) (Heparin Sq 5000 Unit/0.5ml) 5,000 unit Q12H SQ 04/20/17 09:00 05/20/17 08:59 04/22/17 20:42 5,000 UNIT Albuterol/ Ipratropium (Duoneb) 3 ml Q4RWA INH 04/20/17 08:00 05/20/17 07:59 04/23/17 07:10 3 ML Acetaminophen (Tylenol Supp) 650 mg Q6H PRN [place] 04/20/17 03:00 05/20/17 02:59 Latanoprost (Xalatan Oph Soln) 1 drops HS OPB 04/20/17 21:00 05/20/17 20:59 04/22/17 20:45 1 DROPS Sodium Chloride ([place] Nasal [place]) 2 sprays BID ADELA 04/20/17 09:00 05/20/17 08:59 04/22/17 20:43 2 SPRAYS Pantoprazole Sodium 40 mg/ Syringe 10 ml @ 5 mls/min DAILY@11 IV 04/20/17 11:00 05/20/17 10:59 04/22/17 11:38 5 MLS/MIN Miscellaneous Information (Consult) 1 ea UD PRN N/A 04/20/17 03:00 05/20/17 02:59 Aztreonam 1000 mg/ Dextrose 110 ml @ 100 mls/hr Q8H IV 04/20/17 10:00 04/27/17 09:59 04/23/17 02:10 100 MLS/HR Acetaminophen 650 mg/Empty Bag 65 ml @ 260 mls/hr Q6H PRN IV 04/20/17 03:15 05/20/17 03:14 04/22/17 00:25 260 MLS/HR Bisacodyl (Dulcolax Supp) 10 mg DAILY UT 04/20/17 09:00 05/20/17 08:59 04/20/17 09:05 10 MG Budesonide (Pulmicort Respules 0.5MG/ 2ML Neb Soln) 0.5 mg BIDR INH 04/20/17 08:00 05/20/17 07:59 04/23/17 07:10 0.5 MG Insulin Aspart (novoLOG ASPART) SLIDING SCALE If C... Q6 SC 04/20/17 12:00 05/20/17 11:59 04/22/17 18:49 1 UNITS Glucose (Glucose 40% Gel) 15-30 GRAMS 15 GRAMS... UD PRN PO 04/20/17 09:15 05/20/17 09:14 Glucose (Glucose Chew Tab) 4-8 Tablets 4 Tabl... UD PRN PO 04/20/17 09:15 05/20/17 09:14 Dextrose (Dextrose 50% 50ML Syringe) 25-50ML OF 50% DW IV FOR... UD PRN IV 04/20/17 09:15 05/20/17 09:14 Glucagon (Glucagon Inj) 1 mg UD PRN SQ 04/20/17 09:15 05/20/17 09:14 Miscellaneous Information (Consult Glycemic Management Pharmacy) 1 ea UD PRN N/A 04/20/17 10:22 05/20/17 10:21 Insulin Glargine (Lantus Solostar Pen) 24 units Q24H SC 04/20/17 18:00 05/20/17 17:59 04/22/17 18:50 24 UNITS Vancomycin HCl 1250 mg/Sodium Chloride 275 ml @ 125 mls/hr Q16H IV 04/21/17 16:00 04/27/17 04:59 04/23/17 00:02 125 MLS/HR Dextrose/Sodium Chloride 1,000 ml @ 100 mls/hr Q10H IV 04/23/17 07:15 05/23/17 07:14 04/23/17 07:58 100 MLS/HR Objective Vital Signs Date Time Temp Pulse Resp B/P (MAP) Pulse Ox O2 Delivery O2 Flow Rate FiO2 04/23/17 07:25 36.6 109 18 183/82 (115) 93 3.0 04/23/17 07:10 113 16 97 Mask 3.0 04/23/17 00:16 95 Oxymask 3.0 04/23/17 00:15 37.5 109 19 151/89 (109) 95 Oxymask 3.0 04/22/17 20:43 98 98 Oxymask 3.0 04/22/17 19:59 110 16 96 Mask 2.0 04/22/17 16:42 96 Oxymask 3.0 04/22/17 16:40 90 Oxymask 2.0 04/22/17 15:10 36.6 96 22 153/75 (101) 96 Oxymask 2.0 04/22/17 14:40 99 16 95 Mask 2.0 04/22/17 11:12 86 16 96 Mask 3.0 Physical Exam Comments: The patient is somnolent but does respond to verbal stimuli. She is normocephalic and atraumatic, lying in bed and in no acute distress. HEENT--PERRL, EOMI, mucous membranes and oropharynx dry. Neck--supple. No JVD. No bruits. Thyroid normal, trachea midline, no adenopathy. Heart--normal S1 and S2. No murmurs, rubs or gallops. Lungs--coarse breath sounds bilaterally, no respiratory distress, no accessory muscle use. Abdomen--normal bowel sounds and soft. Nontender. Nondistended, no hernias or masses. Extremities--right AKA. No edema. There is a diminished pulse on the left. Dermatologic--normal skin turgor, normal color, no abnormal lymph nodes, no rash. Neurologic--cranial nerves II through XII grossly intact. Laboratory Results Last 24 Hours Test 04/22/17 11:59 04/22/17 18:44 04/22/17 23:22 04/22/17 23:56 Bedside Glucose 152 mg/dl 159 mg/dl 111 mg/dl Vancomycin Level Trough 13.9 mcg/ml Test 04/23/17 05:47 04/23/17 05:57 Creatinine 0.36 mg/dl Est Creatinine Clear Calc Drug Dose 114.7 ml/min Estimated GFR () 111.6 Estimated GFR (Non- 96.3 Bedside Glucose 70 mg/dl Assessment and Plan Acute respiratory failure with hypoxia/bilateral pneumonia left worse than right -- Possible gram negative or MRSA PNA Vancomycin IV per pharmacokinetic monitoring Cefepime 1 g IV every 8 hours Duonebs every 4 hours while awake and every 2 hours when necessary. Pulmicort Respules 0.5 mg inhaled twice daily Nasal cannula oxygen titrate to keep pulse ox greater than or equal to 92% Sputum Gram stain and culture. Multiple fractures: right humeral fracture displaced with right femoral neck fracture. Patient is unlikely to be a candidate for surgery. Consulted ortho. They will discuss options with family. Unlikely to recommend surgery given her poor quality of life. Altered mental state-- Likely metabolic encephalopathy. May be attributed to problem one. Will monitor Atrial fibrillation/hypertension-- N.p.o. status due to altered mentation. Holding all medications including amlodipine, apixaban, atorvastatin, bumetanide , mag oxide, metoprolol tartrate, and potassium chloride. Change digoxin to 0.125 mg IV at bedtime. Diabetes mellitus-- consulted glycemic control. 24 units of insulin glargine Glaucoma-- Continue all eyedrops including Bepreve, and Xalatan. Chronic pain syndrome-- Holding Patch as noted above due to possible oversedation. GERD-- Change to pantoprazole 40 mg IV daily. CODE STATUS: DNR Disp.: Patient will get palliative care consult as she has multiple comorbidities and has been bedridden. Unlikely to see recovery from patient to have meaningful quality of life as she was already bedridden, prior to this bout of pneumonia and fractures. Ortho stated they will not operate on patient. POA is ok with comfort measures but daughters are not. Palliative care team will continue to persuade alvino.
[2017-04-23] MEDS: SODIUM CHLORIDE 0.65% NA SOLN 45 ML (OCEAN) NAE SCH ×2 (09:30→21:31)
[2017-04-23] MEDS: BISACODYL 10 MG SUPP PR SCH (09:35)
[2017-04-23] MEDS: HEPARIN SOD 5000 UNIT/0.5 ML CARP SQ SCH ×2 (09:37→21:31)
[2017-04-23] MEDS: ACETAMINOPHEN IV 650 MG in EMPTY BAG 0 ML IV PRN (10:40)
[2017-04-23] MEDS: PANTOprazole INJ 40 MG in SYRINGE 0 ML IV SCH (10:40)
--- NOTE | 2017-04-23 10:46 | Pharmacy Progress Note ---
Pharmacy Abx Dose Short Note Date of Service Apr 23, 2017. Assessment & Plan Assessment 87 year old female receiving aztreonam/vancomycin for treatment of pneumonia Day # 4 of antimicrobial therapy. Plan Vancomycin * Trough level of 13.9 mcg/mL is subtherapeutic * Change to 1250 mg IV every 14 hours * Goal trough level for pna : 15 to 20 mcg/mL * Trough level ordered for 04/25 @ 0730 Pharmacy will continue to follow and will adjust dose/frequency as necessary. Thank you.
--- NOTE | 2017-04-23 12:38 | Pharmacy Progress Note ---
Pharmacy Glycemic Short Note 2 Date of Service Apr 23, 2017. OUTPATIENT ANTIDIABETIC REGIMEN: * Lantus 24 units qPM * Novolog 6 units w/ meals + SS ASSESSMENT: * Ms. Powell received 26 units of insulin yesterday with BSGs ranging from 70- 159 mg/dL * Changes to causes of insulin resistance today: * D5NS @ 100 cc/hr started this AM for low BSG * Diet just advanced to full liquid/pureed diet * Palliative care involved and comfort measures or hospice care are recommended , however, they are trying to get daughters on board * Not concerned about strict glycemic control at this point * Will plan to back off slightly on Lantus - BSGs should increase with diet and IVFs but want to prevent further lows PLAN FOR INPATIENT GLYCEMIC CONTROL: * Basal insulin * Reduce to Lantus 22 units SQ qPM * Bolus insulin * NovoLog per scale - change to ACHS * Goal Range: Low 120 mg/dL - High 150 mg/dL * Correction Factor: 35 mg/dL/unit * Nutritional / Prandial insulin per carb ratio of 1 unit per 11 grams CHO consumed
[2017-04-23] MEDS ORDERED: INSULIN ASPART 100 UNITS/ML 3 ML PEN SC SCH (18:00)
[2017-04-23] MEDS: INSULIN GLARGINE SOLOSTAR 100 UNITS/ML 3 ML PEN SC SCH (18:45)
[2017-04-23] MEDS: LATANOPROST 0.005% OP SOLN 2.5 ML BTL OPB SCH (21:31)
[2017-04-24] VITALS (8 sets, daily range): BP systolic 128–157; BP diastolic 76–81; PULSE 96–116; TEMP 36.7–37; O2SAT 93–100
[2017-04-24] MEDS: AZTREONAM IV 1,000 MG in DEXTROSE 5% 100ML 100 ML IV SCH ×3 (01:39→19:09)
[2017-04-24] MEDS: VANCOMYCIN INJ 1,250 MG in SODIUM CHLORIDE 0.9% 250ML 250 ML IV SCH ×2 (03:33→20:14)
[2017-04-24] MEDS: D5W AND NSS 1,000 ML IV SCH (03:33)
--- NOTE | 2017-04-24 07:13 | Progress Note ---
Subjective Date of Service: Apr 23, 2017. Subjective Patient seen at 15:00 on Apr 23 2017. Patient is found hugging a doll. Patient awakens with verbal stimuli, but does not provide any significant history. Problem List Medical Problems: (1) Altered mental status Status: Acute (2) CHF (congestive heart failure) Status: Acute (3) CHF (congestive heart failure) Status: Acute (4) COPD (chronic obstructive pulmonary disease) Status: Acute (5) Fall Status: Acute (6) Hip fracture, right Status: Acute (7) Hypoxia Status: Acute (8) Hypoxia Status: Acute (9) PNA (pneumonia) Status: Acute (10) Pulmonary edema Status: Acute (11) Respiratory failure Status: Acute (12) Right humeral fracture Status: Acute (13) Sepsis Status: Acute Medications Current Inpatient Medications Medications (Trade) Dose Ordered Sig/Tariq Route Start Time Stop Time Status Last Admin Dose Admin Heparin Sodium (Porcine) (Heparin Sq 5000 Unit/0.5ml) 5,000 unit Q12H SQ 04/20/17 09:00 05/20/17 08:59 04/22/17 20:42 5,000 UNIT Albuterol/ Ipratropium (Duoneb) 3 ml Q4RWA INH 04/20/17 08:00 05/20/17 07:59 04/24/17 07:43 3 ML Acetaminophen (Tylenol Supp) 650 mg Q6H PRN [place] 04/20/17 03:00 05/20/17 02:59 Latanoprost (Xalatan Oph Soln) 1 drops HS OPB 04/20/17 21:00 05/20/17 20:59 04/22/17 20:45 1 DROPS Sodium Chloride ([place] Nasal [place]) 2 sprays BID ADELA 04/20/17 09:00 05/20/17 08:59 04/23/17 09:30 2 SPRAYS Pantoprazole Sodium 40 mg/ Syringe 10 ml @ 5 mls/min DAILY@11 IV 04/20/17 11:00 05/20/17 10:59 04/23/17 10:40 5 MLS/MIN Miscellaneous Information (Consult) 1 ea UD PRN N/A 04/20/17 03:00 05/20/17 02:59 Aztreonam 1000 mg/ Dextrose 110 ml @ 100 mls/hr Q8H IV 04/20/17 10:00 04/27/17 09:59 04/24/17 01:39 100 MLS/HR Acetaminophen 650 mg/Empty Bag 65 ml @ 260 mls/hr Q6H PRN IV 04/20/17 03:15 05/20/17 03:14 04/23/17 10:40 260 MLS/HR Bisacodyl (Dulcolax Supp) 10 mg DAILY [place] 04/20/17 09:00 05/20/17 08:59 04/20/17 09:05 10 MG Budesonide (Pulmicort Respules 0.5MG/ 2ML Neb Soln) 0.5 mg BIDR INH 04/20/17 08:00 05/20/17 07:59 04/24/17 07:43 0.5 MG Glucose (Glucose 40% Gel) 15-30 GRAMS 15 GRAMS... UD PRN PO 04/20/17 09:15 05/20/17 09:14 Glucose (Glucose Chew Tab) 4-8 Tablets 4 Tabl... UD PRN PO 04/20/17 09:15 05/20/17 09:14 Dextrose (Dextrose 50% 50ML Syringe) 25-50ML OF 50% DW IV FOR... UD PRN IV 04/20/17 09:15 05/20/17 09:14 Glucagon (Glucagon Inj) 1 mg UD PRN SQ 04/20/17 09:15 05/20/17 09:14 Miscellaneous Information (Consult Glycemic Management Pharmacy) 1 ea UD PRN N/A 04/20/17 10:22 05/20/17 10:21 Dextrose/Sodium Chloride 1,000 ml @ 100 mls/hr Q10H IV 04/23/17 07:15 05/23/17 07:14 04/24/17 03:33 100 MLS/HR Vancomycin HCl 1250 mg/Sodium Chloride 275 ml @ 125 mls/hr Q14H IV 04/23/17 14:00 04/28/17 15:59 04/24/17 03:33 125 MLS/HR Insulin Glargine (Lantus Solostar Pen) 22 units Q24H SC 04/23/17 18:00 05/23/17 17:59 04/23/17 18:45 22 UNITS Insulin Aspart (novoLOG ASPART) SLIDING SCALE If C... ACHS SC 04/23/17 12:00 05/23/17 11:59 04/23/17 21:30 2 UNITS Objective Vital Signs Date Time Temp Pulse Resp B/P (MAP) Pulse Ox O2 Delivery O2 Flow Rate FiO2 04/23/17 23:30 36.4 115 16 140/77 (98) 94 Nasal Cannula 2.0 04/23/17 23:22 95 Nasal Cannula 2.0 04/23/17 19:48 106 18 95 Nasal Cannula 2.0 04/23/17 16:08 93 Nasal Cannula 2.0 04/23/17 16:00 36.9 108 20 129/76 (93) 95 Nasal Cannula 2.0 04/23/17 15:44 99 16 98 Nasal Cannula 3.0 04/23/17 11:39 104 16 96 Mask 2.0 04/23/17 09:00 93 Oxymask 2.0 04/23/17 07:25 36.6 109 18 183/82 (115) 93 3.0 Physical Exam Comments: The patient is somnolent but does respond to verbal stimuli. She is normocephalic and atraumatic, lying in bed and in no acute distress. HEENT--PERRL, EOMI, mucous membranes and oropharynx dry. Neck--supple. No JVD. No bruits. Thyroid normal, trachea midline, no adenopathy. Heart--normal S1 and S2. No murmurs, rubs or gallops. Lungs--coarse breath sounds bilaterally, no respiratory distress, no accessory muscle use. Abdomen--normal bowel sounds and soft. Nontender. Nondistended, no hernias or masses. Extremities--right AKA. No edema. There is a diminished pulse on the left. Dermatologic--normal skin turgor, normal color, no abnormal lymph nodes, no rash. Neurologic--cranial nerves II through XII grossly intact. Laboratory Results Last 24 Hours Test 04/23/17 11:58 04/23/17 16:52 04/23/17 20:40 Bedside Glucose 99 mg/dl 125 mg/dl 202 mg/dl Assessment and Plan Acute respiratory failure with hypoxia/bilateral pneumonia left worse than right -- Possible gram negative or MRSA PNA Vancomycin IV per pharmacokinetic monitoring Cefepime 1 g IV every 8 hours Duonebs every 4 hours while awake and every 2 hours when necessary. Pulmicort Respules 0.5 mg inhaled twice daily Nasal cannula oxygen titrate to keep pulse ox greater than or equal to 92% Sputum Gram stain and culture. Multiple fractures: right humeral fracture displaced with right femoral neck fracture. Patient is not a candidate for surgery. Consulted ortho. They will discuss options with family. Unlikely to recommend surgery given her poor quality of life. Altered mental state-- Likely metabolic encephalopathy. May be attributed to problem one. Will monitor Atrial fibrillation/hypertension-- BP appears to be controlled. Changed diet to PO. But patient is not tolerating diet. Due to this will continue to hold amlodipine, apixaban, atorvastatin, bumetanide , mag, metoprolol, potassium Change digoxin to 0.125 mg IV at bedtime. Diabetes mellitus-- consulted glycemic control. 24 units of insulin glargine Glaucoma-- Continue all eyedrops including Bepreve, and Xalatan. Chronic pain syndrome-- Holding Patch as noted above due to possible oversedation. GERD-- Change to pantoprazole 40 mg IV daily. CODE STATUS: DNR Disp.: Patient will get palliative care consult as she has multiple comorbidities and has been bedridden. Unlikely to see recovery from patient to have meaningful quality of life as she was already bedridden, prior to this bout of pneumonia and fractures. Ortho stated they will not operate on patient. POA is ok with comfort measures but daughters are not. Palliative care team will continue to persuade daughters.
[2017-04-24] MEDS: BUDESONIDE 0.5 MG/2 ML VIAL (PULMICORT) INH SCH ×2 (07:43→19:04)
[2017-04-24] MEDS: ALBUT/IPRATROP 3MG/0.5MG NEB 3 ML VIAL INH SCH ×4 (07:43→19:04)
[2017-04-24] MEDS: SODIUM CHLORIDE 0.65% NA SOLN 45 ML (OCEAN) NAE SCH ×2 (08:57→21:00)
[2017-04-24] MEDS: BISACODYL 10 MG SUPP PR SCH (09:00)
[2017-04-24] MEDS: INSULIN ASPART 100 UNITS/ML 3 ML PEN SC SCH ×4 (09:01→21:02)
[2017-04-24] MEDS: HEPARIN SOD 5000 UNIT/0.5 ML CARP SQ SCH ×2 (09:02→21:04)
[2017-04-24 09:39] LABS: BASO % 0.5 %; BASO ABS # 0.04 K/uL (0-0.2); EOS % 3.4 %; EOS ABS # 0.25 K/uL (0-0.5); HEMATOCRIT 36.4 % (37-47); HEMOGLOBIN 11.1 g/dL (12.0-16.0); IG# 0.09 K/uL (0.00-0.02); LYMPH % 11.4 %; LYMPH ABS # 0.85 K/uL (1.2-3.4); MEAN CELL VOLUME 96.8 fL (80-100); MEAN CORPUSCULAR HEMOGLOBIN 29.5 pg (25-34); MEAN CORPUSCULAR HGB CONC 30.5 g/dl (32-36); MEAN PLATELET VOLUME 11.4 fL (7.4-10.4); MONO % 10.8 %; NEUT % 72.7 %; NEUT ABS # 5.41 K/uL (1.4-6.5); NUCLEATED RED BLOOD CELL ABS 0.05 K/uL (0-0); PLATELET COUNT 131 K/uL (130-400); RED CELL DISTRIBUTION WIDTH CV 18.1 % (11.5-14.5); RED CELL DISTRIBUTION WIDTH SD 63.3 fL (36.4-46.3); WHITE BLOOD COUNT 7.44 K/uL (4.8-10.8)
[2017-04-24 10:08] LABS: CALCIUM 8.7 mg/dl (8.5-10.1); CREATININE 0.5 mg/dl (0.60-1.20); POTASSIUM 2.6 mmol/L (3.5-5.1)
--- NOTE | 2017-04-24 10:44 | Palliative Care Progress Note ---
Palliative Care Progress Note Date of Service Apr 24, 2017. Subjective Pt evaluation today including: conversation w/ patient, physical exam, chart review, conversation w/ travel consultant (Dr. Rucker) Pain: unable to answer PO Intake: small amount for breakfast -patient is awake, nonverbal. -Did have some breakfast and did okay per nursing. -Speech about see patient now for swallow evaluation. Review of Systems unable to obtain due to AMS/nonverbal state Objective Vital Signs Date Time Temp Pulse Resp B/P (MAP) Pulse Ox O2 Delivery O2 Flow Rate FiO2 04/24/17 08:03 Nasal Cannula 2.0 04/24/17 07:52 116 18 93 Nasal Cannula 1.0 04/24/17 07:19 36.8 103 19 157/76 (103) 96 Nasal Cannula 2.0 04/23/17 23:30 36.4 115 16 140/77 (98) 94 Nasal Cannula 2.0 04/23/17 23:22 95 Nasal Cannula 2.0 04/23/17 19:48 106 18 95 Nasal Cannula 2.0 04/23/17 16:08 93 Nasal Cannula 2.0 04/23/17 16:00 36.9 108 20 129/76 (93) 95 Nasal Cannula 2.0 04/23/17 15:44 99 16 98 Nasal Cannula 3.0 04/23/17 11:39 104 16 96 Mask 2.0 Physical Exam General Appearance: no apparent distress, + obese, + pertinent finding ( chronically ill appearing) ENT: hearing grossly normal Neck: supple, no JVD Respiratory/Chest: no respiratory distress, no accessory muscle use Cardiovascular: regular rate, rhythm, no edema, + pertinent finding (right BKA) Abdomen: normal bowel sounds, soft Neurologic/Psychiatric: alert, + pertinent finding (nonverbal) Skin: normal color, + pallor Laboratory Results Last 24 Hours Test 04/23/17 11:58 04/23/17 16:52 04/23/17 20:40 04/24/17 08:08 Bedside Glucose 99 mg/dl 125 mg/dl 202 mg/dl 187 mg/dl Test 04/24/17 09:17 White Blood Count 7.44 K/uL Red Blood Count 3.76 M/uL Hemoglobin 11.1 g/dL Hematocrit 36.4 % Mean Corpuscular Volume 96.8 fL Mean Corpuscular Hemoglobin 29.5 pg Mean Corpuscular Hemoglobin Concent 30.5 g/dl Platelet Count 131 K/uL Mean Platelet Volume 11.4 fL Neutrophils (%) (Auto) 72.7 % Lymphocytes (%) (Auto) 11.4 % Monocytes (%) (Auto) 10.8 % Eosinophils (%) (Auto) 3.4 % Basophils (%) (Auto) 0.5 % Neutrophils # (Auto) 5.41 K/uL Lymphocytes # (Auto) 0.85 K/uL Monocytes # (Auto) 0.80 K/uL Eosinophils # (Auto) 0.25 K/uL Basophils # (Auto) 0.04 K/uL RDW Standard Deviation 63.3 fL RDW Coefficient of Variation 18.1 % Immature Granulocyte % (Auto) 1.2 % Immature Granulocyte # (Auto) 0.09 K/uL Nucleated RBC Absolute Count (auto) 0.05 K/uL Nucleated Red Blood Cells % 0.7 % Sodium Level 153 mmol/L Potassium Level 2.6 mmol/L Chloride Level 119 mmol/L Carbon Dioxide Level 27 mmol/L Anion Gap 7.0 mmol/L Blood Urea Nitrogen 7 mg/dl Creatinine 0.50 mg/dl Est Creatinine Clear Calc Drug Dose 82.6 ml/min Estimated GFR () 100.2 Estimated GFR (Non- 86.4 BUN/Creatinine Ratio 13.8 Random Glucose 248 mg/dl Calcium Level 8.7 mg/dl Assessment and Plan Problem list: Altered mental status/nonverbal Aspiration risk Bedridden Bilateral pneumonia Right BKA Right humeral and hip fracture Multiple skin tears and bruising Hx COPD, obesity, DM, CAD, PVD Goals of care Palliative care recs: -Attempted calling patient's daughter, Jacinda, many times. Left her a message, no call back. -Speech pathologist to see patient today-- she suspects patient will not do well. Speech has seen this patient many times and she is a known aspirator/ aspiration risk. Patient's mental status remains poor- she is nonverbal, agitated at times. Update: did receive call from speech pathologist-- patient did okay without overt aspiration or choking. Recommended allowing comfort feeding with pureed and thin liquids. I relayed this message to Dr. Rucker. -Patient's son/POA, Hector, is agreeable to patient going back to [facility] for comfort care. Hector wanted me to speak with patient's daughter, but I haven't been able to get a hold of her in three days. I can also speak to her even after patient is discharged, I do not see it to be a reason to keep patient in hospital. -Discharge plan remains for patient to go back to [facility] on comfort care. Thank you again for this consult. Please contact me with any further palliative care needs. I will sign off for now. Total time spent 25 minutes with >50% of time spent with patient and consultants counseling and coordinating care. Palliative Performance Scale: 20 %
[2017-04-24] MEDS: PANTOprazole INJ 40 MG in SYRINGE 0 ML IV SCH (11:26)
--- NOTE | 2017-04-24 14:12 | Pharmacy Progress Note ---
Pharmacy Glycemic Short Note 2 Date of Service Apr 24, 2017. OUTPATIENT ANTIDIABETIC REGIMEN: * Lantus 24 units qPM * Novolog 6 units w/ meals + SS ASSESSMENT: 04/23/17 * Ms. Powell received 26 units of insulin yesterday with BSGs ranging from 70- 159 mg/dL * Changes to causes of insulin resistance today: * D5NS @ 100 cc/hr started this AM for low BSG * Diet just advanced to full liquid/pureed diet * Palliative care involved and comfort measures or hospice care are recommended , however, they are trying to get daughters on board * Not concerned about strict glycemic control at this point * Will plan to back off slightly on Lantus - BSGs should increase with diet and IVFs but want to prevent further lows 04/24/17 * Patient received 25 units of insulin yesterday and BSGs have ranged from 125- 259 mg/dL * Her diet has been advanced further, was seen by speech today * D5NS @ 100 cc/hr is still on board * Palliative care still working with patient's family regarding plan for hospice or comfort measures * Since diet is advanced and BSGs are increased, I spoke with Dr. Rucker re: continued need for dextrose IVFs -> this has been d/c'd as of 1300 today * Lantus dose was already reduced slightly yesterday for low fasting on 04/23 PLAN FOR INPATIENT GLYCEMIC CONTROL: * Basal insulin * Continue Lantus 22 units SQ qPM * Bolus insulin - continue * NovoLog per scae * Goal Range: Low 120 mg/dL - High 150 mg/dL * Correction Factor: 35 mg/dL/unit * Nutritional / Prandial insulin per carb ratio of 1 unit per 11 grams CHO consumed * NOT concerned will very tight control at this point with patient's status. If BSGs remain fairly stable, will consider signing off.
[2017-04-24] MEDS: FENTANYL PATCH REMOVE & WASTE SCH (17:59)
[2017-04-24] MEDS ORDERED: SODIUM CHLOR 0.45% + 20MEQ KCL 1,000 ML IV SCH (18:00)
[2017-04-24] MEDS: FENTANYL 25 MCG/HR TDSY TD SCH (18:32)
[2017-04-24] MEDS: INSULIN GLARGINE SOLOSTAR 100 UNITS/ML 3 ML PEN SC SCH (18:43)
[2017-04-24] MEDS: POTASSIUM CHLR 10 MEQ / WTR 10 MEQ in PREMIXED WATER 100 ML IV SCH ×2 (19:09→20:15)
[2017-04-24] MEDS: POTASSIUM CHLORIDE PWD 20 MEQ PACK PO SCH (21:00)
[2017-04-24] MEDS: LATANOPROST 0.005% OP SOLN 2.5 ML BTL OPB SCH (21:00)
--- NOTE | 2017-04-24 23:17 | Progress Note ---
Subjective Date of Service: Apr 24, 2017. Subjective Pt evaluation today including: conversation w/ patient, conversation w/ family , physical exam Patient remains nonverbal. Does not provide history. Unable to obtain a ROS. Problem List Medical Problems: (1) Altered mental status Status: Acute (2) CHF (congestive heart failure) Status: Acute (3) CHF (congestive heart failure) Status: Acute (4) COPD (chronic obstructive pulmonary disease) Status: Acute (5) Fall Status: Acute (6) Hip fracture, right Status: Acute (7) Hypoxia Status: Acute (8) Hypoxia Status: Acute (9) PNA (pneumonia) Status: Acute (10) Pulmonary edema Status: Acute (11) Respiratory failure Status: Acute (12) Right humeral fracture Status: Acute (13) Sepsis Status: Acute Review of Systems All Other Systems: Reviewed and Negative Medications Current Inpatient Medications Medications (Trade) Dose Ordered Sig/Tariq Route Start Time Stop Time Status Last Admin Dose Admin Heparin Sodium (Porcine) (Heparin Sq 5000 Unit/0.5ml) 5,000 unit Q12H SQ 04/20/17 09:00 05/20/17 08:59 04/24/17 21:04 5,000 UNIT Albuterol/ Ipratropium (Duoneb) 3 ml Q4RWA INH 04/20/17 08:00 05/20/17 07:59 04/24/17 19:04 3 ML Acetaminophen (Tylenol Supp) 650 mg Q6H PRN [place] 04/20/17 03:00 05/20/17 02:59 Latanoprost (Xalatan Oph Soln) 1 drops HS OPB 04/20/17 21:00 05/20/17 20:59 04/22/17 20:45 1 DROPS Sodium Chloride ([place] Nasal [place]) 2 sprays BID ADELA 04/20/17 09:00 05/20/17 08:59 04/23/17 09:30 2 SPRAYS Pantoprazole Sodium 40 mg/ Syringe 10 ml @ 5 mls/min DAILY@11 IV 04/20/17 11:00 05/20/17 10:59 04/24/17 11:26 5 MLS/MIN Miscellaneous Information (Consult) 1 ea UD PRN N/A 04/20/17 03:00 05/20/17 02:59 Aztreonam 1000 mg/ Dextrose 110 ml @ 100 mls/hr Q8H IV 04/20/17 10:00 04/27/17 09:59 04/24/17 19:09 100 MLS/HR Acetaminophen 650 mg/Empty Bag 65 ml @ 260 mls/hr Q6H PRN IV 04/20/17 03:15 05/20/17 03:14 04/23/17 10:40 260 MLS/HR Bisacodyl (Dulcolax Supp) 10 mg DAILY [place] 04/20/17 09:00 05/20/17 08:59 04/20/17 09:05 10 MG Budesonide (Pulmicort Respules 0.5MG/ 2ML Neb Soln) 0.5 mg BIDR INH 04/20/17 08:00 05/20/17 07:59 04/24/17 19:04 0.5 MG Glucose (Glucose 40% Gel) 15-30 GRAMS 15 GRAMS... UD PRN PO 04/20/17 09:15 05/20/17 09:14 Glucose (Glucose Chew Tab) 4-8 Tablets 4 Tabl... UD PRN PO 04/20/17 09:15 05/20/17 09:14 Dextrose (Dextrose 50% 50ML Syringe) 25-50ML OF 50% DW IV FOR... UD PRN IV 04/20/17 09:15 05/20/17 09:14 Glucagon (Glucagon Inj) 1 mg UD PRN SQ 04/20/17 09:15 05/20/17 09:14 Miscellaneous Information (Consult Glycemic Management Pharmacy) 1 ea UD PRN N/A 04/20/17 10:22 05/20/17 10:21 Vancomycin HCl 1250 mg/Sodium Chloride 275 ml @ 125 mls/hr Q14H IV 04/23/17 14:00 04/28/17 15:59 04/24/17 20:14 125 MLS/HR Insulin Glargine (Lantus Solostar Pen) 22 units Q24H SC 04/23/17 18:00 05/23/17 17:59 04/24/17 18:43 22 UNITS Insulin Aspart (novoLOG ASPART) SLIDING SCALE If C... ACHS SC 04/23/17 12:00 05/23/17 11:59 04/24/17 21:02 2 UNITS Potassium Chloride (Klor-Con Pwd) 20 meq TID PO 04/24/17 21:00 05/24/17 20:59 04/24/17 21:00 20 MEQ Potassium Chloride/Sodium Chloride 1,000 ml @ 100 mls/hr Q10H IV 04/24/17 18:00 04/25/17 03:59 04/24/17 18:31 100 MLS/HR Fentanyl (Duragesic Patch) 25 mcg Q3D@1800 TD 04/24/17 18:00 05/08/17 17:59 04/24/17 18:32 25 MCG Miscellaneous (Fentanyl Patch Remove & Waste) 1 ea Q3D@1759 N/A 04/24/17 17:59 05/24/17 17:58 Miscellaneous Information (Check Fentanyl Patch Placement) 1 ea QS N/A 04/25/17 00:00 05/25/17 00:00 Objective Vital Signs Date Time Temp Pulse Resp B/P (MAP) Pulse Ox O2 Delivery O2 Flow Rate FiO2 04/24/17 19:05 96 16 100 Nasal Cannula 2.0 04/24/17 19:00 Nasal Cannula 2.0 04/24/17 16:00 Nasal Cannula 2.0 04/24/17 15:35 104 16 96 Mask 2.0 04/24/17 15:15 37.0 113 18 148/77 (100) 98 Nasal Cannula 2.0 04/24/17 11:20 105 18 100 Nasal Cannula 2.0 04/24/17 08:03 Nasal Cannula 2.0 04/24/17 07:52 116 18 93 Nasal Cannula 1.0 04/24/17 07:19 36.8 103 19 157/76 (103) 96 Nasal Cannula 2.0 04/23/17 23:30 36.4 115 16 140/77 (98) 94 Nasal Cannula 2.0 04/23/17 23:22 95 Nasal Cannula 2.0 Physical Exam Comments: The patient is somnolent but does respond to verbal stimuli. She is normocephalic and atraumatic, lying in bed and in no acute distress. HEENT--PERRL, EOMI, mucous membranes and oropharynx dry. Neck--supple. No JVD. No bruits. Thyroid normal, trachea midline, no adenopathy. Heart--normal S1 and S2. No murmurs, rubs or gallops. Lungs--coarse breath sounds bilaterally, no respiratory distress, no accessory muscle use. Abdomen--normal bowel sounds and soft. Nontender. Nondistended, no hernias or masses. Extremities--right AKA. No edema. There is a diminished pulse on the left. Dermatologic--normal skin turgor, normal color, no abnormal lymph nodes, no rash. Neurologic--cranial nerves II through XII grossly intact. Laboratory Results Last 24 Hours Test 04/24/17 08:08 04/24/17 09:17 04/24/17 11:58 04/24/17 17:08 Bedside Glucose 187 mg/dl 259 mg/dl 195 mg/dl White Blood Count 7.44 K/uL Red Blood Count 3.76 M/uL Hemoglobin 11.1 g/dL Hematocrit 36.4 % Mean Corpuscular Volume 96.8 fL Mean Corpuscular Hemoglobin 29.5 pg Mean Corpuscular Hemoglobin Concent 30.5 g/dl Platelet Count 131 K/uL Mean Platelet Volume 11.4 fL Neutrophils (%) (Auto) 72.7 % Lymphocytes (%) (Auto) 11.4 % Monocytes (%) (Auto) 10.8 % Eosinophils (%) (Auto) 3.4 % Basophils (%) (Auto) 0.5 % Neutrophils # (Auto) 5.41 K/uL Lymphocytes # (Auto) 0.85 K/uL Monocytes # (Auto) 0.80 K/uL Eosinophils # (Auto) 0.25 K/uL Basophils # (Auto) 0.04 K/uL RDW Standard Deviation 63.3 fL RDW Coefficient of Variation 18.1 % Immature Granulocyte % (Auto) 1.2 % Immature Granulocyte # (Auto) 0.09 K/uL Nucleated RBC Absolute Count (auto) 0.05 K/uL Nucleated Red Blood Cells % 0.7 % Sodium Level 153 mmol/L Potassium Level 2.6 mmol/L Chloride Level 119 mmol/L Carbon Dioxide Level 27 mmol/L Anion Gap 7.0 mmol/L Blood Urea Nitrogen 7 mg/dl Creatinine 0.50 mg/dl Est Creatinine Clear Calc Drug Dose 82.6 ml/min Estimated GFR () 100.2 Estimated GFR (Non- 86.4 BUN/Creatinine Ratio 13.8 Random Glucose 248 mg/dl Calcium Level 8.7 mg/dl Test 2/16/18 20:43 Bedside Glucose 204 mg/dl Assessment and Plan Acute respiratory failure with hypoxia/bilateral pneumonia left worse than right -- Possible gram negative or MRSA PNA Vancomycin IV per pharmacokinetic monitoring Cefepime 1 g IV every 8 hours Duonebs every 4 hours while awake and every 2 hours when necessary. Pulmicort Respules 0.5 mg inhaled twice daily Nasal cannula oxygen titrate to keep pulse ox greater than or equal to 92% Sputum Gram stain and culture. Multiple fractures: right humeral fracture displaced with right femoral neck fracture. Patient is not a candidate for surgery. Consulted ortho. They will discuss options with family. Unlikely to recommend surgery given her poor quality of life. Discussed with son. Prefers narcotic medicine eventhough patient may be lethargic. Placed on fentanyl patch Altered mental state-- Likely metabolic encephalopathy. May be attributed to problem one. Will monitor Atrial fibrillation/hypertension-- BP appears to be controlled. Changed diet to PO. But patient is not tolerating diet. Due to this will continue to hold amlodipine, apixaban, atorvastatin, bumetanide , mag, metoprolol, potassium Change digoxin to 0.125 mg IV at bedtime. Diabetes mellitus-- consulted glycemic control. 24 units of insulin glargine Glaucoma-- Continue all eyedrops including Bepreve, and Xalatan. Chronic pain syndrome-- placed on fentranyl GERD-- Change to pantoprazole 40 mg IV daily. hypokalemia replaced. CODE STATUS: DNR Disp.: Patient will get palliative care consult as she has multiple comorbidities and has been bedridden. Unlikely to see recovery from patient to have meaningful quality of life as she was already bedridden, prior to this bout of pneumonia and fractures. Ortho stated they will not operate on patient. POA wants to contiue treatment, though he wants patient to be comfortable, he does not want CORRESPONDENCE REVIEW CLERK. Palliative care team will continue to persuade daughters and son.
[2017-04-24] MEDS: CHECK FENTANYL PATCH PLACEMENT SCH (23:22)
[2017-04-25] VITALS (9 sets, daily range): BP systolic 147–171; BP diastolic 64–89; PULSE 98–114; TEMP 36.5–36.8; O2SAT 94–98
[2017-04-25] MEDS: AZTREONAM IV 1,000 MG in DEXTROSE 5% 100ML 100 ML IV SCH ×3 (02:08→18:36)
[2017-04-25] MEDS: ALBUT/IPRATROP 3MG/0.5MG NEB 3 ML VIAL INH SCH ×4 (07:06→19:15)
[2017-04-25] MEDS: BUDESONIDE 0.5 MG/2 ML VIAL (PULMICORT) INH SCH ×2 (07:07→19:16)
[2017-04-25] MEDS ORDERED: VANCOMYCIN TROUGH ONE (07:30)
[2017-04-25 08:21] LABS: HEMATOCRIT 34.6 % (37-47); HEMOGLOBIN 10.9 g/dL (12.0-16.0); MEAN CELL VOLUME 95.3 fL (80-100); MEAN CORPUSCULAR HGB CONC 31.5 g/dl (32-36); MEAN PLATELET VOLUME 11.2 fL (7.4-10.4); NUCLEATED RED BLOOD CELL ABS 0.04 K/uL (0-0); PLATELET COUNT 139 K/uL (130-400); RED CELL DISTRIBUTION WIDTH CV 18.1 % (11.5-14.5); RED CELL DISTRIBUTION WIDTH SD 62.7 fL (36.4-46.3); WHITE BLOOD COUNT 9.27 K/uL (4.8-10.8)
[2017-04-25] MEDS: CHECK FENTANYL PATCH PLACEMENT SCH ×2 (08:50→16:27)
[2017-04-25] MEDS: VANCOMYCIN INJ 1,250 MG in SODIUM CHLORIDE 0.9% 250ML 250 ML IV SCH ×2 (08:51→21:55)
[2017-04-25] MEDS: SODIUM CHLORIDE 0.65% NA SOLN 45 ML (OCEAN) NAE SCH ×2 (08:53→21:56)
[2017-04-25] MEDS: POTASSIUM CHLORIDE PWD 20 MEQ PACK PO SCH ×3 (08:54→21:56)
[2017-04-25 08:59] LABS: CALCIUM 8.8 mg/dl (8.5-10.1); CREATININE 0.43 mg/dl (0.60-1.20); POTASSIUM 2.7 mmol/L (3.5-5.1)
[2017-04-25] MEDS: BISACODYL 10 MG SUPP PR SCH (09:00)
[2017-04-25] MEDS: INSULIN ASPART 100 UNITS/ML 3 ML PEN SC SCH ×4 (09:02→20:18)
[2017-04-25] MEDS: HEPARIN SOD 5000 UNIT/0.5 ML CARP SQ SCH ×2 (09:03→21:56)
--- NOTE | 2017-04-25 09:12 | Pharmacy Progress Note ---
Pharmacy Abx Dose Short Note Date of Service Apr 25, 2017. Assessment & Plan Assessment 87 year old female receiving vancomycin for treatment of pneumonia. Day # 6 of antimicrobial therapy. Plan Vancomycin * Trough level of 18.7 mcg/mL is therapeutic. * Continue dose of 1250 mg IV every 14 hours * Goal trough level : 15 to 20 mcg/mL * Trough or random level ordered for: As clinically indicated. Pharmacy will continue to follow and will adjust dose/frequency as necessary. Thank you.
[2017-04-25] MEDS: PANTOprazole INJ 40 MG in SYRINGE 0 ML IV SCH (11:29)
--- NOTE | 2017-04-25 13:04 | PROGRESS NOTE ---
DATE: 04/25/2017 HOSPITALIST PROGRESS NOTE HISTORY OF PRESENT ILLNESS: Mrs. 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 The patient is not a surgical candidate. The patient was noted to have acute respiratory failure and hypoxemia secondary to bilateral pneumonia. She is currently being treated with IV vancomycin and ertapenem for healthcare-associated pneumonia. The patient remains nonverbal with the exception of 1 brief sentence "who should I call." The patient denies any chest pain, but she does admit to some shortness of breath. Her O2 saturations have stayed in the mid to upper 90s for the past 48 hours. She is receiving fentanyl patches for pain control. MEDICATIONS: 1. Fentanyl patch 25 mcg q. 3 days. 2. Lantus insulin 22 units subcutaneous injection every 24 hours. 3. IV vancomycin 1250 mg. 4. Xalatan ophthalmic solution. 5. Protonix 40 mg IV daily. 6. KCl powder 20 mEq t.i.d. 7. Aztreonam 1000 mg IV q. 8 hours. 8. Heparin 5000 units subcutaneous injection q. 12 hours. 9. Saline nasal spray 2 sprays in each nostril b.i.d. 10. Dulcolax suppository p.r.n. 11. DuoNeb nebulizers q. 4 hours while awake. 12. Pulmicort Respules 0.5 mg inhaled b.i.d. 13. Tylenol p.r.n. ALLERGIES: 1. RICHARD INHIBITORS. 2. ASPIRIN. 3. ATENOLOL. 4. OTHER 5. CIPROFLOXACIN. 6. CODEINE. 7. FLUTICASONE 8. FUROSEMIDE. 9. HYDROCHLOROTHIAZIDE. PHYSICAL EXAMINATION: VITAL SIGNS: Temperature is 36.6 degrees Celsius, pulse is 100-110 and irregularly irregular, respiratory rate is 18 and blood pressure is 147/83, SPO2 is 96% on 2 liters oxygen via nasal cannula. GENERAL: The patient is lying in bed with her eyes open, responds by nodding her head. HEENT: EOMs intact. Sclerae are anicteric. Face is symmetric. No perioral cyanosis. NECK: Without JVD. CHEST AND LUNGS: With bibasilar crackles noted. No wheezes or rales. CARDIOVASCULAR: S1 and S2 are irregularly irregular, tachycardic, with a grade 2-3/6 systolic murmur heard at the left sternal border, apex. Also audible at the base. No diastolic murmurs appreciated. No obvious gallops or rubs. ABDOMEN: Bowel sounds present. No masses, organomegaly or tenderness. EXTREMITIES: No edema. Right leg is surgically absent. NEUROLOGIC: No focal neurologic deficits noted. LABORATORIES: White blood cell count is 9.27, hemoglobin 10.9 g/dl, hematocrit 34.6% and platelet count is 139,000. Sodium is 153 mmol/L, potassium 2.7 mmol/L, BUN is 6 mg/dL, creatinine 0.43 mg/dL and random glucose 156 mg/dL. ASSESSMENT: 1. Acute hypoxic respiratory failure secondary to bilateral pneumonia and severe chronic obstructive pulmonary disease. 2. Recent fall resulting in a right humeral fracture, and a right femoral neck fracture. Not a surgical candidate. Palliative care underway. 3. Atrial fibrillation with elevated ventricular response rate. 4. Not a candidate for anticoagulation due to fall. 5. Chronic kidney disease. 6. Hypertension. 7. Diabetes mellitus. 8. Peripheral arterial disease status post right acute kidney above knee amputation. PLAN: 1. Continue IV vancomycin and IV aztreonam for suspected healthcare-associated pneumonia. 2. Continue inhalers and supplemental oxygen as needed. 3. Resume Lopressor 25 mg p.o. b.i.d. May crush this and put it in applesauce. This will help control her ventricular response rate. 4. Ongoing pain management as per ortho and palliative care. 5. Ongoing deep venous thrombosis prophylaxis with subQ heparin. 6. Continue Lantus. 7. Continue digoxin 0.125 mg IV daily at bedtime. 8. Continue Protonix 40 mg IV daily. 9. The patient remains hypokalemic. We will increase her supplemental potassium. 10. The patient is hypernatremic and was advised to increase oral fluid intake. 11. Palliative care team will continue to speaking to family regarding management of her case. It is very unlikely that she will recover and have any meaningful quality of life as she was already bedridden prior to this, has significant fractures and is not a surgical candidate. Orthopedics will not operate on this person. 12. We will continue to follow. MARIN
[2017-04-25] MEDS: POTASSIUM CHLR 10 MEQ / WTR 10 MEQ in PREMIXED WATER 100 ML IV SCH ×4 (14:08→17:29)
[2017-04-25] MEDS: INSULIN GLARGINE SOLOSTAR 100 UNITS/ML 3 ML PEN SC SCH (18:38)
[2017-04-25] MEDS: LATANOPROST 0.005% OP SOLN 2.5 ML BTL OPB SCH (21:56)
[2017-04-25] MEDS: METOPROLOL TARTRATE 25 MG TAB PO SCH (22:01)
[2017-04-26] VITALS (9 sets, daily range): BP systolic 144–162; BP diastolic 66–78; PULSE 73–104; TEMP 36.7–37.1; O2SAT 97–100
[2017-04-26] MEDS: AZTREONAM IV 1,000 MG in DEXTROSE 5% 100ML 100 ML IV SCH ×3 (02:09→17:54)
[2017-04-26] MEDS: BUDESONIDE 0.5 MG/2 ML VIAL (PULMICORT) INH SCH ×2 (06:59→19:02)
[2017-04-26] MEDS: ALBUT/IPRATROP 3MG/0.5MG NEB 3 ML VIAL INH SCH ×4 (06:59→19:02)
[2017-04-26] MEDS: INSULIN ASPART 100 UNITS/ML 3 ML PEN SC SCH ×4 (08:00→21:00)
[2017-04-26] MEDS: CHECK FENTANYL PATCH PLACEMENT SCH ×3 (08:37→15:50)
[2017-04-26] MEDS: SODIUM CHLORIDE 0.65% NA SOLN 45 ML (OCEAN) NAE SCH ×3 (08:38→21:47)
[2017-04-26] MEDS: POTASSIUM CHLORIDE PWD 20 MEQ PACK PO SCH ×3 (08:38→21:22)
[2017-04-26] MEDS: METOPROLOL TARTRATE 25 MG TAB PO SCH ×2 (08:38→21:32)
[2017-04-26] MEDS: BISACODYL 10 MG SUPP PR SCH (08:39)
[2017-04-26] MEDS: HEPARIN SOD 5000 UNIT/0.5 ML CARP SQ SCH ×2 (08:45→21:35)
[2017-04-26] MEDS: PANTOprazole INJ 40 MG in SYRINGE 0 ML IV SCH (10:40)
[2017-04-26] MEDS: VANCOMYCIN INJ 1,250 MG in SODIUM CHLORIDE 0.9% 250ML 250 ML IV SCH (11:51)
--- NOTE | 2017-04-26 13:50 | Pharmacy Progress Note ---
Pharmacy Glycemic Short Note 2 Date of Service Apr 26, 2017. OUTPATIENT ANTIDIABETIC REGIMEN: * Lantus 24 units qPM * Novolog 6 units w/ meals + SS ASSESSMENT: 04/23/17 * Ms. Powell received 26 units of insulin yesterday with BSGs ranging from 70- 159 mg/dL * Changes to causes of insulin resistance today: * D5NS @ 100 cc/hr started this AM for low BSG * Diet just advanced to full liquid/pureed diet * Palliative care involved and comfort measures or hospice care are recommended , however, they are trying to get daughters on board * Not concerned about strict glycemic control at this point * Will plan to back off slightly on Lantus - BSGs should increase with diet and IVFs but want to prevent further lows 04/24/17 * Patient received 25 units of insulin yesterday and BSGs have ranged from 125- 259 mg/dL * Her diet has been advanced further, was seen by speech today * D5NS @ 100 cc/hr is still on board * Palliative care still working with patient's family regarding plan for hospice or comfort measures * Since diet is advanced and BSGs are increased, I spoke with Dr. Rucker re: continued need for dextrose IVFs -> this has been d/c'd as of 1300 today * Lantus dose was already reduced slightly yesterday for low fasting on 04/2304/26/17 * No changes made yesterday but fasting fell slightly today - remains off dextrose IVFs * Will plan to reduce Lantus by 10% to prevent fasting hypoglycemia * Postprandial BSGs currently acceptable PLAN FOR INPATIENT GLYCEMIC CONTROL: * Basal insulin * Decrease Lantus to 20 units SQ qPM * Bolus insulin - continue * NovoLog per scae * Goal Range: Low 120 mg/dL - High 150 mg/dL * Correction Factor: 35 mg/dL/unit * Nutritional / Prandial insulin per carb ratio of 1 unit per 11 grams CHO consumed * NOT concerned will very tight control at this point with patient's status. If BSGs remain fairly stable, will consider signing off.
--- NOTE | 2017-04-26 19:53 | PROGRESS NOTE ---
DATE: 04/26/2017 HISTORY OF PRESENT ILLNESS: Ms. 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 The patient is not a surgical candidate. The patient was noted to have acute respiratory failure and hypoxemia secondary to bilateral pneumonia. She was subsequently admitted and treated with IV vancomycin and ertapenem for healthcare associated pneumonia. The patient remains nonverbal today, no history is collected. She is receiving fentanyl patches for pain control. MEDICATIONS: 1. Fentanyl patch 25 mcg every 3 days. 2. Lantus insulin 22 units subcutaneous injection every 24 hours. 3. IV vancomycin 1250 mg daily. 4. Xalatan ophthalmic solution. 5. Protonix 40 mg IV daily. 6. KCl powder 20 mEq t.i.d. 7. Aztreonam 1000 mg IV q. 8 hours. 8. Heparin 5000 units subcutaneous injection q. 12 hours. 9. Normal saline. 10. Dulcolax suppository p.r.n. 11. DuoNeb nebulizers q. 4 hours while awake. 12. Pulmicort Respules 0.5 mg inhaled b.i.d. 13. Tylenol p.r.n. ALLERGIES: 1. RICHARD INHIBITORS. 2. ASPIRIN. 3. ATENOLOL. 4. CIPROFLOXACIN. 5. CODEINE. 6. FLUTICASONE. 7. FUROSEMIDE. 8. HYDROCHLOROTHIAZIDE. 9. CEFPROZIL. PHYSICAL EXAMINATION: VITAL SIGNS: Temperature is 37.1 degrees axillary, pulse is 88 and irregularly irregular. Respiratory rate 18 and unlabored, blood pressure is 144/76, SpO2 is 97% on 1 liter of oxygen via nasal cannula. GENERAL: The patient is in no acute distress. Lying in bed in room 304. She is nonverbal. HEENT: Unremarkable. NECK: Without JVD. CHEST AND LUNGS: With bibasilar crackles. No wheezes or rales. CARDIOVASCULAR: S1 and S2 are irregularly irregular with a heart rate of approximately 85 beats per minute. There is a grade 3/6 apical systolic murmur heard best at left sternal border and apex. Also audible at the base. No diastolic murmurs appreciated. No gallops or rubs. ABDOMEN: Bowel sounds are present. EXTREMITIES: No edema. Right leg is surgically absent. NEUROLOGIC: The patient is nonverbal. LABORATORY DATA: White blood cell count is 9.27. Hemoglobin 10.9 g/dL, hematocrit 34.6%, platelet count 139,000. Random glucose is 138 mg/dL. ASSESSMENT: 1. Acute hypoxic respiratory failure secondary to bilateral pneumonias and severe chronic obstructive pulmonary disease. 2. Recent fall resulting in right humeral fracture and right femoral neck fracture. Not a surgical candidate, palliative care following. 3. Atrial fibrillation with controlled ventricular response rate. 4. Not a candidate for anticoagulation due to fall. 5. Chronic kidney disease. 6. Hypertension 7. Diabetes mellitus. 8. Peripheral arterial disease status post right above knee amputation. PLAN: 1. Continue palliative care. 2. Continue IV vancomycin, IV aztreonam for a suspected healthcare associated pneumonia. 3. Continue inhalers and supplemental oxygen as needed. 4. Continue Lopressor 25 mg b.i.d. 5. Ongoing pain management as per ortho and palliative care. 6. Ongoing DVT prophylaxis with subcutaneous heparin. 7. Continue Lantus. 8. Continue digoxin 0.125 mg IV daily at bedtime. 9. Continue Protonix 40 mg IV daily. 10. The patient's PRP is pending. She was hypokalemic yesterday. This is being supplemented. 11. The patient was hypernatremic, follow up laboratories are pending. 12. Palliative care team will continue speaking to family regarding management of her case. It is very unlikely she will recover and have any meaningful quality of life. She was bedridden prior to this event and she is not a surgical candidate. 13. We will continue to follow. MARIN
[2017-04-26] MEDS ORDERED: INSULIN GLARGINE SOLOSTAR 100 UNITS/ML 3 ML PEN SC SCH (21:00)
[2017-04-26] MEDS: LATANOPROST 0.005% OP SOLN 2.5 ML BTL OPB SCH (21:22)
[2017-04-27] VITALS (9 sets, daily range): BP systolic 116–168; BP diastolic 64–92; PULSE 76–110; TEMP 36.2–36.5; O2SAT 96–100
[2017-04-27] MEDS: CHECK FENTANYL PATCH PLACEMENT SCH ×3 (00:29→15:40)
[2017-04-27] MEDS: AZTREONAM IV 1,000 MG in DEXTROSE 5% 100ML 100 ML IV SCH (01:53)
[2017-04-27] MEDS: ACETAMINOPHEN IV 650 MG in EMPTY BAG 0 ML IV PRN (02:35)
[2017-04-27] MEDS: VANCOMYCIN INJ 1,250 MG in SODIUM CHLORIDE 0.9% 250ML 250 ML IV SCH (02:52)
[2017-04-27 06:47] LABS: CALCIUM 8.6 mg/dl (8.5-10.1); CREATININE 0.25 mg/dl (0.60-1.20); POTASSIUM 3.3 mmol/L (3.5-5.1)
[2017-04-27] MEDS: ALBUT/IPRATROP 3MG/0.5MG NEB 3 ML VIAL INH SCH ×4 (07:21→19:25)
[2017-04-27] MEDS: BUDESONIDE 0.5 MG/2 ML VIAL (PULMICORT) INH SCH ×2 (07:21→19:25)
[2017-04-27] MEDS: INSULIN ASPART 100 UNITS/ML 3 ML PEN SC SCH ×4 (08:00→21:00)
[2017-04-27] MEDS: BISACODYL 10 MG SUPP PR SCH (08:13)
[2017-04-27] MEDS: SODIUM CHLORIDE 0.65% NA SOLN 45 ML (OCEAN) NAE SCH ×2 (08:14→21:00)
[2017-04-27] MEDS: METOPROLOL TARTRATE 25 MG TAB PO SCH ×2 (08:23→23:24)
[2017-04-27] MEDS: POTASSIUM CHLORIDE PWD 20 MEQ PACK PO SCH ×3 (08:23→22:09)
[2017-04-27] MEDS: HEPARIN SOD 5000 UNIT/0.5 ML CARP SQ SCH ×2 (08:28→22:12)
[2017-04-27] MEDS: PANTOprazole INJ 40 MG in SYRINGE 0 ML IV SCH (11:14)
--- NOTE | 2017-04-27 12:58 | Pharmacy Progress Note ---
Pharmacy Glycemic Short Note 2 Date of Service Apr 27, 2017. OUTPATIENT ANTIDIABETIC REGIMEN: * Lantus 24 units qPM * Novolog 6 units w/ meals + SS ASSESSMENT: 04/27/16 * Patient was hypoglycemic this am (BSG 58). * Lantus dose cut in half starting this evening and dose moved to dinner time rather than bed time. 04/26/17 * No changes made yesterday but fasting fell slightly today - remains off dextrose IVFs * Will plan to reduce Lantus by 10% to prevent fasting hypoglycemia * Postprandial BSGs currently acceptable PLAN FOR INPATIENT GLYCEMIC CONTROL: * Basal insulin * Decrease Lantus to 10 units SQ qPM (with dinner) * Bolus insulin - continue * NovoLog per scae * Goal Range: Low 120 mg/dL - High 150 mg/dL * Correction Factor: 35 mg/dL/unit * Nutritional / Prandial insulin per carb ratio of 1 unit per 11 grams CHO consumed * NOT concerned with very tight control at this point, given patient's status. Will continue to adjust as needed.
[2017-04-27] MEDS ORDERED: MoRPHine SULFATE 5 MG/0.25 ML UDP PO PRN (14:15)
--- NOTE | 2017-04-27 14:27 | Hospitalist Progress Note ---
Hospitalist Progress Note Date of Service Apr 27, 2017. (Yanira Mayberry, PA-C) Subjective Pt evaluation today including: conversation w/ patient, physical exam, chart review, lab review, review of studies, review of inpatient medication list Patient seen and evaluated. No acute events overnight. Patient looks uncomfortable laying in bed. Holding her R arm. Minimally talks but was able to communicate with me. States she is having a lot of pain extending the whole length of her R arm. Also states her R hip hurts. She has completed a course of Abx for HCAP. Will incorporate Roxanol as she is non-operative and family has not completely confirmed LOADER OPERATOR SUPERVISOR. However, given fx Roxanol will be the best option in addition to her Fentanyl patch. Will try to avoid oversedation however currently she looks uncomfortable and we need to appropriately control this. Additional Comments: Unable to obtain as she is minimally talkative. Complains of R arm and R hip pain. Looks uncomfortable. (Yanira Mayberry, PA-C) Medications Current Inpatient Medications Medications (Trade) Dose Ordered Sig/Tariq Route Start Time Stop Time Status Last Admin Dose Admin Heparin Sodium (Porcine) (Heparin Sq 5000 Unit/0.5ml) 5,000 unit Q12H SQ 04/20/17 09:00 05/20/17 08:59 04/27/17 08:28 5,000 UNIT Albuterol/ Ipratropium (Duoneb) 3 ml Q4RWA INH 04/20/17 08:00 05/20/17 07:59 04/27/17 11:09 3 ML Acetaminophen (Tylenol Supp) 650 mg Q6H PRN UT 04/20/17 03:00 05/20/17 02:59 Latanoprost (Xalatan Oph Soln) 1 drops HS OPB 04/20/17 21:00 05/20/17 20:59 04/26/17 21:22 1 DROPS Sodium Chloride ([place]al [place]) 2 sprays BID ADELA 04/20/17 09:00 05/20/17 08:59 04/26/17 08:38 2 SPRAYS Acetaminophen 650 mg/Empty Bag 65 ml @ 260 mls/hr Q6H PRN IV 04/20/17 03:15 05/20/17 03:14 04/27/17 02:35 260 MLS/HR Bisacodyl (Dulcolax Supp) 10 mg DAILY UT 04/20/17 09:00 05/20/17 08:59 04/20/17 09:05 10 MG Budesonide (Pulmicort Respules 0.5MG/ 2ML Neb Soln) 0.5 mg BIDR INH 04/20/17 08:00 05/20/17 07:59 04/27/17 07:21 0.5 MG Glucose (Glucose 40% Gel) 15-30 GRAMS 15 GRAMS... UD PRN PO 04/20/17 09:15 05/20/17 09:14 Glucose (Glucose Chew Tab) 4-8 Tablets 4 Tabl... UD PRN PO 04/20/17 09:15 05/20/17 09:14 Dextrose (Dextrose 50% 50ML Syringe) 25-50ML OF 50% DW IV FOR... UD PRN IV 04/20/17 09:15 05/20/17 09:14 Glucagon (Glucagon Inj) 1 mg UD PRN SQ 04/20/17 09:15 05/20/17 09:14 Miscellaneous Information (Consult Glycemic Management Pharmacy) 1 ea UD PRN N/A 04/20/17 10:22 05/20/17 10:21 Insulin Aspart (novoLOG ASPART) SLIDING SCALE If C... ACHS SC 04/23/17 12:00 05/23/17 11:59 04/25/17 18:38 1 UNITS Potassium Chloride (Klor-Con Pwd) 20 meq TID PO 04/24/17 21:00 05/24/17 20:59 04/27/17 14:01 20 MEQ Fentanyl (Duragesic Patch) 25 mcg Q3D@1800 TD 04/24/17 18:00 05/08/17 17:59 04/24/17 18:32 25 MCG Miscellaneous (Fentanyl Patch Remove & Waste) 1 ea Q3D@1759 N/A 04/24/17 17:59 05/24/17 17:58 Miscellaneous Information (Check Fentanyl Patch Placement) 1 ea QS N/A 04/25/17 00:00 05/25/17 00:00 04/27/17 08:22 1 EA Metoprolol Tartrate (Lopressor Tab) 25 mg BID PO 04/25/17 21:00 05/25/17 20:59 04/27/17 08:23 25 MG Pantoprazole Sodium (Protonix Tab) 40 mg QAM PO 04/28/17 09:00 05/28/17 08:59 Insulin Glargine (Lantus Solostar Pen) 10 units QDD SC 04/27/17 17:45 05/27/17 17:44 Morphine Sulfate (Roxanol Oral Soln) 5 mg Q6H PRN PO 04/27/17 14:15 05/11/17 14:14 UNV (Yanira Mayberry PA-C) Objective Vital Signs Date Time Temp Pulse Resp B/P (MAP) Pulse Ox O2 Delivery O2 Flow Rate FiO2 04/27/17 11:10 85 16 100 Nasal Cannula 2.0 04/27/17 07:48 Nasal Cannula 2.0 04/27/17 07:25 104 16 97 Nasal Cannula 2.0 04/27/17 07:16 36.2 110 19 168/92 (117) 97 Room Air 04/27/17 00:20 Nasal Cannula 2.0 04/26/17 23:23 36.8 77 20 150/73 (98) 98 Nasal Cannula 2.0 04/26/17 21:31 82 162/66 (98) 04/26/17 19:02 89 18 100 Nasal Cannula 2.0 04/26/17 15:38 37.1 88 18 144/76 (98) 97 Nasal Cannula 1.0 04/26/17 15:35 97 Nasal Cannula 2.0 04/26/17 14:30 74 18 97 Nasal Cannula 2.0 (Yanira Mayberry, PA-C) Physical Exam General Appearance: + mild distress (uncomfortable appearing) Eyes: sclerae normal Neck: supple, no JVD, trachea midline Respiratory/Chest: no respiratory distress, no accessory muscle use, + decreased breath sounds Cardiovascular: regular rate, rhythm, + systolic murmur Abdomen: normal bowel sounds, non tender, soft Extremities: + pertinent finding (R AKA - stump non-erythematous; R hip without ecchymosis or protrusions) Neurologic/Psychiatric: alert, oriented x 3 Skin: normal color (Yanira Mayberry PA-C) Laboratory Results Last 24 Hours Test 04/26/17 16:47 04/26/17 20:22 04/27/17 05:33 04/27/17 07:01 Bedside Glucose 138 mg/dl 127 mg/dl 60 mg/dl Sodium Level 148 mmol/L Potassium Level 3.3 mmol/L Chloride Level 115 mmol/L Carbon Dioxide Level 27 mmol/L Anion Gap 6.0 mmol/L Blood Urea Nitrogen 6 mg/dl Creatinine 0.25 mg/dl Est Creatinine Clear Calc Drug Dose 165.2 ml/min Estimated GFR () 125.8 Estimated GFR (Non- 108.6 BUN/Creatinine Ratio 25.5 Random Glucose 58 mg/dl Calcium Level 8.6 mg/dl Test 04/27/17 07:25 04/27/17 07:43 04/27/17 11:57 Bedside Glucose 69 mg/dl 75 mg/dl 85 mg/dl (Yanira Mayberry, PA-C) Assessment and Plan Acute Hypoxic Respiratory Failure 2/2 Bilateral PNA and Severe COPD: - Completed course of Aztreonam and Vanc for suspected HCAP - continue aspiration precautions - she is afebrile and without leukocytosis; CHILDREN'S COUNSELOR did see patient and no overt signs of aspiration so continue basic precautions - Continue Duonebs; Pulmicort BID - Obtain F/U CXR tomorrow to assess for any volume overload - Bumex on Hold Fall with R Humeral Fx and R Femoral Neck Fx: - Non-surgical candidate and will ultimately need good pain control - Fentanyl 25 mcg and Roxanol Q6H PRN - patient looks uncomfortable and a palliative approach is necessary to promote the bit of quality of life she may have left - risk is oversedation and will try to avoid this Chronic Atrial Fibrillation: Controlled Ventricular Response and HTN - Lopressor 25 mg BID and add back Digoxin 0.125 daily - Norvasc 5 mg daily - Was on Eliquis - this is currently on hold and given falls AC may be something to consider holding CKD Stage II and Fluid/Electrolytes: - Patient with elevating Na and Cl with adequate UO but dark yellow urine - Generally poor oral intake - Does not appear hypervolemic but is hard to determine due to body habitus - hold Bumex - Would encourage oral intake when possible but suspect this will be a gradual decline T2DM with Hypoglycemia: - This is likely due to poor oral intake and would suspect this will be an ongoing issue - Appreciate pharmacy recommendations - would recommend liberalization given poor intake - Currently with Lantus 10 units SC daily and SSI PAD S/P R AKA: DVT Prophylaxis: Heparin 5000 units SC BID Code Status: DO NOT RESUSCITATE Disposition: - Bed hold as [facility] - will try and optimize pain control and likely D/C tomorrow - Palliative care following - given patients co-morbidities a palliative approach would be appropriate to maintain the bit of quality to her life she has left; patient appears uncomfortable and optimizing her pain is necessary - She would benefit from LOADER OPERATOR SUPERVISOR however family have opposing views and would benefit from ongoing evaluation of this to promote comfort and quality of life but this can be managed as an outpatient and recommend family meeting to discuss Ms. Powell. Have had difficutly discussing with each family members in- hospital - Medically patient is optimal for discharge however pain is not appropriately controlled - will add Roxanol and monitor overnight. Will try to reduce sedation but patient looks uncomfortable and is not appropriate to ignore this - possible D/C back to [facility] tomorrow - Could de-escalate medications if the ultimate goal is LOADER OPERATOR SUPERVISOR but until that final decision is made should continue to treat - did add some held medications back on board Continued [facility] stay due to: inadequate oral pain control Discharge planning: intermediate facility (Yanira Mayberry PA-C) Reviewed: Pt Seen/Exam by Me (Lu Kaminski MD) History Physician Turn Down Man supervision Note: I interviewed and examined the patient. Discussed with MERCED Mayberry and agree with findings and plan as documented in the note. Any exceptions or clarifications are listed here: Patient wakes up when I talked to her. She does answer yes and no questions and seems to understand what I am asking, but cannot tell me anything. She does admit to pain and seems shocked when I tell her that she has fractured shoulder and hip. She does appear comfortable and was sleeping when I walked in the room. Vitals reviewed Gen: Alert and awake, nonverbal, morbidly obese,, NAD HEENT: anicteric sclerae, EOMI CV: Irregularly irregular and mildly tachycardic, 3/6 ANSHUL at the RUSB Pulm: CTAB no wcr Abd: +BS soft NT ND no masses or hernias Ext: Right AKA, no edema, positive tenderness to palpation of her right hip and shoulder, numerous ecchymotic areas over the arms Skin: no rashes, warm/dry This patient is an 87-year-old female with a history of CVA and aphasia, COPD, CKD stage III, chronic atrial fibrillation on anticoagulation with Eliquis,, PAD status post right AKA, and DM type II, here with fall resulting in right proximal humerus fracture, and right hip fracture. Family has decided to pursue nonoperative management. -Agree with transition to palliative care and placement back at her group home after pain is controlled tomorrow-it appears her pain is controlled now -Hypernatremia, hypokalemia-both are likely due to poor p.o. intake but is improved today-we will refrain from IV fluids as this would only be a temporizing measure and she is moving towards palliative care -Restarted on her digoxin today which should help her rate a little bit with her A. fib -Given her now complete bedbound status, I would recommend putting her back on her Eliquis tomorrow to prevent DVT and stroke -Hypoglycemia-poor p.o. intake, insulin has been adjusted accordingly -Plan for discharge to group home tomorrow Documented By: Lu Kaminski (Lu Kaminski MD)
[2017-04-27] MEDS ORDERED: INSULIN GLARGINE SOLOSTAR 100 UNITS/ML 3 ML PEN SC SCH ×2 (17:45)
[2017-04-27] MEDS: FENTANYL PATCH REMOVE & WASTE SCH (18:14)
[2017-04-27] MEDS: FENTANYL 25 MCG/HR TDSY TD SCH (18:16)
[2017-04-27] MEDS: LATANOPROST 0.005% OP SOLN 2.5 ML BTL OPB SCH (21:00)
[2017-04-27] MEDS ORDERED: SERTRALINE HCL 50 MG TAB PO SCH (21:00)
[2017-04-27] MEDS ORDERED: DIGOXIN 0.125 MG TAB PO SCH (21:00)
[2017-04-27] MEDS: APIXABAN 2.5 MG TAB PO SCH (22:09)
[2017-04-28] MEDS: CHECK FENTANYL PATCH PLACEMENT SCH ×2 (00:47→08:24)
[2017-04-28 00:48] VITALS: PULSE 84; O2SAT 97
[2017-04-28] MEDS ORDERED: INSULIN ASPART 100 UNITS/ML 3 ML PEN SC SCH (02:00)
[2017-04-28] MEDS ORDERED: LEVOTHYROXINE 25 MCG TAB PO SCH (06:30)
[2017-04-28 07:33] VITALS: PULSE 71; O2SAT 87
[2017-04-28] MEDS: BUDESONIDE 0.5 MG/2 ML VIAL (PULMICORT) INH SCH (07:33)
[2017-04-28] MEDS: ALBUT/IPRATROP 3MG/0.5MG NEB 3 ML VIAL INH SCH ×2 (07:33→11:13)
[2017-04-28 07:38] LABS: HEMATOCRIT 32.3 % (37-47); MEAN CELL VOLUME 96.4 fL (80-100); MEAN CORPUSCULAR HEMOGLOBIN 29.9 pg (25-34); MEAN PLATELET VOLUME 11.1 fL (7.4-10.4); PLATELET COUNT 195 K/uL (130-400); RED CELL DISTRIBUTION WIDTH CV 18.4 % (11.5-14.5); RED CELL DISTRIBUTION WIDTH SD 63.8 fL (36.4-46.3); WHITE BLOOD COUNT 9.43 K/uL (4.8-10.8)
--- NOTE | 2017-04-28 07:53 | DIAGNOSTIC IMAGING REPORT ---
CHEST ONE VIEW PORTABLE CLINICAL HISTORY: Dyspnea; Fluid Overload COMPARISON STUDY: Chest radiograph April 20, 2017. FINDINGS: A single lead left subclavian pacer is in place. There is no pneumothorax. Diffuse interstitial thickening persists. This is consistent with pulmonary edema. Left basilar opacity has significantly increased. There is also right basilar opacity which has developed. Cardiomegaly is unchanged. IMPRESSION: 1. Increasing left basilar opacity with volume loss. This favors atelectasis however pneumonia could appear similar. 2. Small bilateral pleural effusions. 3. Persistent pulmonary edema. Electronically signed by: Sajan Rust M.D. 04/28/2017 7:51 AM Dictated Date/Time: 04/28/2017 7:50 AM
[2017-04-28] MEDS: INSULIN ASPART 100 UNITS/ML 3 ML PEN SC SCH ×2 (08:00→12:00)
[2017-04-28 08:12] VITALS: BP 144/71; PULSE 73; TEMP 37; O2SAT 98
[2017-04-28 08:13] LABS: CALCIUM 8.8 mg/dl (8.5-10.1); CREATININE 0.22 mg/dl (0.60-1.20); POTASSIUM 3.4 mmol/L (3.5-5.1)
[2017-04-28] MEDS: SODIUM CHLORIDE 0.65% NA SOLN 45 ML (OCEAN) NAE SCH (08:25)
[2017-04-28] MEDS: BISACODYL 10 MG SUPP PR SCH (08:25)
[2017-04-28] MEDS: METOPROLOL TARTRATE 25 MG TAB PO SCH (08:27)
[2017-04-28] MEDS: POTASSIUM CHLORIDE PWD 20 MEQ PACK PO SCH ×2 (08:27→14:01)
[2017-04-28] MEDS: APIXABAN 2.5 MG TAB PO SCH (08:28)
[2017-04-28] MEDS: HEPARIN SOD 5000 UNIT/0.5 ML CARP SQ SCH (08:38)
[2017-04-28] MEDS: POTASSIUM CHLR 10 MEQ / WTR 10 MEQ in PREMIXED WATER 100 ML IV SCH ×2 (08:45→09:27)
[2017-04-28] MEDS ORDERED: AMLODIPINE BESYLATE 5 MG TAB PO SCH (09:00)
[2017-04-28] MEDS ORDERED: PANTOprazole SOD 40 MG TAB PO SCH (09:00)
[2017-04-28] MEDS ORDERED: POTASSIUM CHLORIDE PWD 20 MEQ PACK PO ONE (09:45)
[2017-04-28] MEDS ORDERED: INSDGIPEN SC ×2 (10:50)
[2017-04-28] MEDS ORDERED: RXNS10 PO ×2 (10:50)
--- NOTE | 2017-04-28 11:06 | Discharge Instructions ---
Discharge Instructions Date of Service Apr 28, 2017. Admission Reason for Admission: Fall, Pna Discharge Discharge Diagnosis / Problem: Fall with R Humerus Fx and R Hip Fx Discharge Goals Goal(s): Decrease discomfort, Improve function, Increase independence Activity Recommendations Activity Level: Bedrest . Additional Information Patient informed of condition: Yes Advance Directives: Yes DNR: Yes Level of Care: Skilled Communicable Disease: No Prognosis: Stable Myers Catheter: Yes Instructions / Follow-Up Instructions / Follow-Up Acute Hypoxic Respiratory Failure 2/2 Bilateral PNA and Severe COPD: - Completed course of Aztreonam and Vanc for suspected HCAP - continue aspiration precautions - she is afebrile and without leukocytosis; SENIOR SOFTWARE DEVELOPMENT MANAGER did see patient and no overt signs of aspiration so continue basic precautions - Continue her nebulizers and inhalers Fall with R Humeral Fx and R Femoral Neck Fx: - Non-surgical candidate and will ultimately need good pain control - she is supposed to maintain a sling and when some healing occurs she can do gentle ROM. Recommend F/U XR to assess this in 2-3 weeks but until then non- weightbearing of RUE - Non-weight bearing of LLE which will leave her ultimately bedridden - Continue Fentanyl 25 mcg patch and Roxanol Q6H PRN - a palliative approach is necessary to promote the bit of quality of life she may have left - risk is oversedation and will try to avoid this Chronic Atrial Fibrillation: Controlled Ventricular Response and HTN - Continue her previously prescribed medications - no adjustments were made - She is actually on a lower dose of Eliquis then necessary for A Fib and kidney function would allow the 5 mg BID dosing - will defer to her primary for consideration for adjusting this CKD Stage II and Fluid/Electrolytes: - Patient with elevated Na and Cl during admission that is resolved; also has adequate UO but dark yellow urine - Generally poor oral intake - Need to promote free water especially now that she has limited movement of RUE - will expect higher Na and Cl levels due to this - Continue to hold Bumex and have F/U BMP in next 2-3 days and consideration for readding this at that time - She needs to optimize her oral intake or she will easily dehydrate with her Bumex dosing - Would encourage oral intake when possible but suspect this will be a gradual decline T2DM with Hypoglycemia: - This is likely due to poor oral intake and would suspect this will be an ongoing issue - Decreased Lantus to 10 units SC daily and continue her sliding scale PAD S/P R AKA: STABLE Code Status: DO NOT RESUSCITATE Disposition: - Palliative care following - given patients co-morbidities a palliative approach would be appropriate to maintain the bit of quality to her life she has left; patient appears uncomfortable and optimizing her pain is necessary - She would benefit from CHILLING HOOD OPERATOR however family have opposing views and would benefit from ongoing evaluation of this to promote comfort and quality of life but this can be managed as an outpatient and recommend family meeting to discuss Ms. Powell. Have had difficulty discussing with each family member in- hospital - Could de-escalate non-essential medications if the ultimate goal is CHILLING HOOD OPERATOR but until that final decision is made should continue to treat Current Hospital Diet Patient's current hospital diet: Diabetes Type 2 Diet Discharge Diet Recommended Diet: Diabetes Type 2 Diet Pending Studies Studies pending at discharge: no Laboratory Results Hemoglobin A1c Test 02/12/17 08:40 Range/Units Estimated Average Glucose 160 mg/dl Hemoglobin A1c 7.2 H 4.5-5.6 % Medical Emergencies . Who to Call and When: Medical Emergencies: If at any time you feel your situation is an emergency, please call 911 immediately. . Non-Emergent Contact Non-Emergency issues call your: Primary Care Provider Call Non-Emergent contact if: you have a fever, your pain is concerning you, you have any medication questions . . "Provider Documentation" section prepared by Yanira Mayberry. . Core Measure Problem Core Measures: None
[2017-04-28 11:14] VITALS: PULSE 70; O2SAT 99
[2017-04-28 11:52] VITALS: BP 144/71; PULSE 70; TEMP 37; O2SAT 99
[2017-04-28] MEDS ORDERED: DRGTP25 TD ×2 (12:22)
--- NOTE | 2017-04-28 13:41 | Discharge Summary ---
Discharge Summary Date of Service Apr 28, 2017. Discharge Summary Admission Date: Apr 20, 2017 at 02:57 Discharge Date: Apr 28, 2017 Discharge Disposition: [facility] facility Principal Diagnosis: R Humerus Fx and R Hip Fx from Fall Problems/Secondary Diagnoses: 1. Rapid Atrial Fibrillation/ AV Dissociation/ AV Block - S/P Pacer 2. CKD Stage II 3. Chronic Respiratory Failure 2/2 COPD - Chronic Supplemental O2 4. T2DM 5. HLD 6. HTN 7. Peripheral Vascular Disease 8. RLE AKA 9. Aortic Stenosis 10. nursing home anticoagulation 11. H/o MCA territory CVA with expressive aphasia 12. RLS 13. GERD 14. Depression 15. Osteoporosis 16. Hypothyroidism 17. Iron deficiency anemia 18. Chronic diastolic CHF 19. Pulmonary HTN 20. Mild aortic regurgitation Immunizations: Have You Had Influenza Vaccine: No Influenza Vaccine Date: Jun 01, 2011 History of Tetanus Vaccine?: utd History of Pneumococcal: Yes Pneumococcal Date: Sep 02, 2012 History of Hepatitis B Vaccine: No Procedures: RIGHT SHOULDER 3 VIEWS FINDINGS: There is an impacted and slightly displaced fracture within the right humeral neck which extends through the greater tuberosity. No dislocation. The right clavicle is intact. Soft tissue swelling within the right shoulder. No radiopaque foreign bodies. IMPRESSION: Right humeral head/neck fracture as described above. No dislocation. PELVIS ONE VIEW FINDINGS: Slightly impacted right femoral neck fracture. No dislocation. The visualized pelvic bones and left hip are intact. There is a large amount of stool seen within the colon rectum. The rectum is distended up to 11 cm. Soft tissues are unremarkable. No radiopaque foreign bodies. IMPRESSION: 1. Right femoral neck fracture. 2. Large amount of stool within the colon and rectum. This may represent fecal impaction. HEAD WITHOUT CONTRAST (CT) FINDINGS: Aeronautical Research Engineer topogram: Unremarkable. Proportional ventricular and sulcal prominence, likely age-related parenchymal volume loss. Periventricular and subcortical white matter hypoattenuation, nonspecific but likely indicative of chronic small vessel ischemic change. 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 This is unchanged from prior exam. No mass effect or midline shift. No hemorrhage or acute territorial infarct. No extra-axial fluid collection. Paranasal sinuses and mastoid air cells clear. Calvarium intact. Bilateral hopland lenses are absent. Atherosclerosis. IMPRESSION: 1. Chronic small vessel ischemic change and old left MCA territory infarct. No acute intracranial abnormality. CHEST ONE VIEW PORTABLE FINDINGS: A single lead left subclavian pacer is in place. There is no pneumothorax. Diffuse interstitial thickening persists. This is consistent with pulmonary edema. Left basilar opacity has significantly increased. There is also right basilar opacity which has developed. Cardiomegaly is unchanged. IMPRESSION: 1. Increasing left basilar opacity with volume loss. This favors atelectasis however pneumonia could appear similar. 2. Small bilateral pleural effusions. 3. Persistent pulmonary edema. Consultations: 1. Orthopedics 2. Palliative Care Medication Reconciliation New Medications: Morphine Sulfate (Morphine Sulfate) 10 Mg/0.5 Ml Soln 5 MG PO Q6H PRN for Pain for 3 Days, #1 BTL Changed Medications: Insulin Glargine (Lantus Solostar) 100 Unit/Ml Inj 10 UNITS SC QPM for 14 Days, #1 PEN (Changed from: 24 UNITS) Continued Medications: Acetaminophen (Tylenol) 650 Mg Supp 1 SUPP IL Q6H PRN for temp > 101 do not exceed 3gm/24hr Acetaminophen Tab (Tylenol) 325 Mg Tab 650 MG PO Q4 PRN for Pain or Fever FOR TEMP >101F. NOT TO EXCEED 3GM/24HRS Albuterol Sulf (Proventil 0.083% 2.5MG/3ML) 2.5 Mg/3 Ml Nebu 2.5 MG INH Q6H, #1 BOX 2 Refills Alendronate Sodium (Alendronate Sodium) 70 Mg/75 Ml Anna 70 MG PO WK mondays Amlodipine (Norvasc) 5 Mg Tab 5 MG PO DAILY HOLD IF SBP <100 AND OR HR <50 Apixaban (Eliquis) 2.5 Mg Tab 2.5 MG PO BID Ascorbic Acid (Ascorbic Acid) 250 Mg Tab 25 MG PO DAILY Atorvastatin (Lipitor) 40 Mg Tab 40 MG PO QPM, TAB Bacitracin/Polymyxin B (Polysporin) Oint 1 APPLN TOP QPM for 7 Days apply to RFA CLEANSE WITH NSS,PAT DRY,APPLY BACITRACIN,COVER WITH TELFA,DRY DRESSING,KERLIX AND PAPER TAPE Bacitracin/Polymyxin B (Polysporin) Oint 1 APPLN TOP QPM for [address] ON LEFT KNEE CLEANSE WITH NSS,PAT DRY,APPLY BACITRACIN,COVER WITH NON-STICK DRESSING,TAWANDA,PAPER TAPE Bepotastine Besilate (Bepreve) 1.5 % Christiano 1 DROP OPB BID Budesonide/Formoterol Fumarate (Symbicort 160/4.5 Inhaler ) Aero 2 PUFFS INH BID, INHALER Calcium Carbonate-Vitamin D (Oscal 500/200 D-3) 1 Tab Tab 1 TAB PO BID Cholecalciferol (Vitamin D3) 2,000 Unit Tab 2000 UNITS PO DAILY for 90 Days, TAB 3 Refills Digoxin (Digoxin) 0.125 Mg Tab 0.125 MG PO HS HOLD FOR HR <60 Fentanyl (Fentanyl) 25 Mcg Tdsy 25 MCG TD [id number] for 3 Days, #1 PATCH (This prescription has been renewed) Ferrous Sulfate (Ferrous Sulfate) 220 Mg/5 Ml Elix 7.5 ML PO DAILY Gabapentin (Neurontin) 250 Mg/5 Ml Anna 600 MG PO TID Guaifenesin (Guaifenesin) 100 Mg/5 Ml Syp 10 ML PO TID [id number] Home O2 Therapy (Oxygen) Gas 3 LITER NA CONTINOUS Insulin Aspart (Novolog Penfill) 100 Unit/Ml Inj 6 UNITS SC AC Insulin Aspart (Novolog) 100 Units/Ml Inj 100 SC DIRECTED inject per sliding scale 0-150= 0 units, 151-200 = 6 units, 201-250= 8 units, 251-300 = 10 units, 301-350 =12 units, 351-400 = 14 units, 401-450 = 16 units greater than 451 call Lactobacillus (Lactobacillus) 1 Tab Tab 1 TAB PO BID Latanoprost (Xalatan 0.005% Oph Anna) 0.005 % Anna 1 DROPS OPB HS, #2.5 ML 3 Refills Levothyroxine Sodium (Levothyroxine Sodium) 25 Mcg Tab 25 MCG PO Q2D for 30 Days, TAB 5 Refills Magnesium Oxide (Mag-Ox) 400 Mg Tab 400 MG PO BID, TAB Metoprolol Tartrate (Lopressor) (Lopressor) 25 Mg Tab 25 MG PO BID HOLD FOR SBP <100 FOR HR <60 Multivitamins/Minerals (Mvi With Minerals) Tab 1 TAB PO DAILY, TAB Potassium Chloride (Potassium Chloride) 20 Meq Soln 20 MEQ PO BID Ranitidine Hcl (Zantac) 75 Mg/5 Ml Syp 150 MG PO BID, ML 2 Refills Ropinirole (Requip) 0.5 Mg Tab 0.5 MG PO DAILY, TAB Saline (Saline Nasal [place]) 0.65 % Spr 2 SPRAYS ADELA BID Sertraline (Zoloft) 50 Mg Tab 50 MG PO HS, TAB Umeclidinium-Vilanterol (Anoro Ellipta 62.5-25 Mcg/INH) 1 Aer Aer 1 INHA PO QAM Discontinued Medications: Bumetanide (Bumetanide) 1 Mg Tab 2.5 MG PO BID Discharge Exam ROS limited as patient only minimally communicative. Review of Systems: Constitutional: No fever, No chills Respiratory: No shortness of breath Cardiovascular: No chest pain Abdomen: No pain, No nausea, No vomiting Musculoskeletal: + joint pain (R shoulder and R hip) Physical Exam: General Appearance: WD/WN, no apparent distress, + obese Eyes: sclerae normal Neck: supple, no JVD, trachea midline Respiratory/Chest: no respiratory distress, no accessory muscle use, + decreased breath sounds Cardiovascular: regular rate, rhythm, + systolic murmur Abdomen / GI: normal bowel sounds, non tender, soft Extremities: + pertinent finding (immediate cap refill in RUE; R AKA) Neurologic/Psychiatric: alert Skin: normal color Hospital Course ADMISSION: The patient is an 87-year-old female resident of [facility], who is brought to the emergency department by EMS after falling off her bed 4 hours ago. Staff there is concerned that she has fractured her right shoulder and right hip, and that has a possible pneumonia. The HPI is limited the patient is altered and cannot contribute. HOSPITAL COURSE: Ms. Powell was admitted for a fall resulting in R Humeral Fx and R Femoral Neck Fx. Family opted for non-surgical treatment. Will optimize her pain with her chronic Fentanyl and PRN Roxanol. She also was found to have a possible bilateral pneumonia and completed a course of Aztreonam and Vancomycin. She should maintain aspiration precautions however no overt findings to suggest that at this time. Patient has been taking in limit fluids and food resulting in electrolyte abnormalities and hypoglycemia. Recommend to encourage free water intake and will hold Bumex with repeat BMP before re- instituting. Reduced her Lantus to 10 units daily and would encourage to further liberalize pending continued BSGs if oral intake is limited. Made multiple attempts to discuss with all family members about quality of life and pursuing TRAIN BRAKER. Son who is POA was in agreement but wanted his sisters opinion. Multiple calls place with no return calls. At this point patient will be continued on all previously prescribed medications. Given co-morbidities, decreasing oral intake, and non-surgical/bed ridden orthopedic injuries so would benefit from a palliative approach. This can be continued to be address to promote patient comfort and quality of life. She will largely be bedridden given Fxs and will be more prone to further skin breakdown. In regards to her Eliquis, will defer to primary provider as she does have underlying A Fib and kidney function supports full dosing. Total Time Spent: Greater than 30 minutes This includes examination of the patient, discharge planning, medication reconciliation, and communication with other providers. Discharge Instructions Please refer to the electronic Patient Visit Report (Discharge Instructions) for additional information. Additional Copies To Jane Victoria Reviewed: Pt Seen/Exam by Me History Physician Diesel Truck Technician supervision Note: I interviewed and examined the patient. Discussed with MERCED Mayberry and agree with findings and plan as documented in the note. Any exceptions or clarifications are listed here: Patient wakes up when I talked to her. She does answer yes and no questions and seems to understand what I am asking, and follows commands. She does admit to pain in the right shoulder and hip. SHe says she does remember that I told her she has a fractured shoulder and hip. Vitals reviewed Gen: Alert and awake, nonverbal, morbidly obese,, NAD HEENT: anicteric sclerae, EOMI CV: Irregularly irregular and mildly tachycardic, 3/6 ANSHUL at the RUSB Pulm: CTAB no wcr Abd: +BS soft NT ND no masses or hernias Ext: Right AKA, no edema, positive tenderness to palpation of her right hip and shoulder, numerous ecchymotic areas over the arms Skin: no rashes, warm/dry This patient is an 87-year-old female with a history of CVA and aphasia, COPD, CKD stage III, chronic atrial fibrillation on anticoagulation with Eliquis,, PAD status post right AKA, and DM type II, here with fall resulting in right proximal humerus fracture, and right hip fracture. Family has decided to pursue nonoperative management. -Agree with transition to palliative care and placement back at her nursing now that pain is controlled -Hypernatremia, hypokalemia-both are likely due to poor p.o. intake and are improved today-Encourage free water access at shelter -continue digoxin for her A. fib with mild tachycardia -Given her now complete bedbound status, I would recommend putting her back on her Eliquis to prevent DVT and stroke--> should be on 5mg bid dose given Weight > 60kg and normal Creatinine but will defer to PCP to change as the PCP started it at 2.5mg dose. -Hypoglycemia-poor p.o. intake, insulin has been adjusted accordingly and is improved -Plan for discharge to shelter today Documented By: Lu Kaminski
[2017-05-01] MEDS ORDERED: FNTTP50 TD ×2 (16:36)
== END 2017-04-28 15:45 | DRG 177 ==
LOC: EDBD 00:43 → C.EDB 00:46 → C.3E 02:57 → EDBEDREQ 03:01 → ENRESERV 03:38
PROVIDERS: ADMIT Hospitalist; ATTEND Family Medicine
DX: J15.6 Pneumonia due to other Gram-negative bacteria (principal); J96.01 Acute respiratory failure with hypoxia; I44.2 Atrioventricular block, complete; I50.32 Chronic diastolic (congestive) heart failure; S72.011A Unspecified intracapsular fracture of right femur, initial encounter for closed fracture; S42.201A Unspecified fracture of upper end of right humerus, initial encounter for closed fracture; G93.41 Metabolic encephalopathy; R65.20 Severe sepsis without septic shock; W06.XXXA Fall from bed, initial encounter; Y92.122 Bedroom in nursing home as the place of occurrence of the external cause; I48.91 Unspecified atrial fibrillation; N18.3 Chronic kidney disease, stage 3 (moderate); E11.21 Type 2 diabetes mellitus with diabetic nephropathy; E78.5 Hyperlipidemia, unspecified; I12.9 Hypertensive chronic kidney disease with stage 1 through stage 4 chronic kidney disease, or unspecified chronic kidney disease; Z86.14 Personal history of Methicillin resistant Staphylococcus aureus infection; I73.9 Peripheral vascular disease, unspecified; Z88.1 Allergy status to other antibiotic agents; Z88.8 Allergy status to other drugs, medicaments and biological substances; Z88.0 Allergy status to penicillin; Z88.2 Allergy status to sulfonamides; H40.9 Unspecified glaucoma; G89.4 Chronic pain syndrome; K21.9 Gastro-esophageal reflux disease without esophagitis; Z99.81 Dependence on supplemental oxygen; I35.0 Nonrheumatic aortic (valve) stenosis; M81.0 Age-related osteoporosis without current pathological fracture; I27.20 Pulmonary hypertension, unspecified; E03.9 Hypothyroidism, unspecified; E66.9 Obesity, unspecified; I25.10 Atherosclerotic heart disease of native coronary artery without angina pectoris; J44.9 Chronic obstructive pulmonary disease, unspecified; E11.649 Type 2 diabetes mellitus with hypoglycemia without coma; Z86.73 Personal history of transient ischemic attack (TIA), and cerebral infarction without residual deficits; Z95.0 Presence of cardiac pacemaker; I69.320 Aphasia following cerebral infarction

== ENCOUNTER → 2017-04-30 | Outpatient (CLI) | payer OTHER ==
[~2017-04-30] MED LIST changes: -ALEN1TAB PO; +ALEN5SOL PO; +AMOX1TAB43 PO; +ASCO250T5 PO; -BENZ100C7 PO; -BISA10SU7 PR; -BMX1 PO; -CEFD300C3 PO; -DEXT40GE MT; +DRGTP75 TD; +FNTTP50 TD; -FRRS300 PO; +FSLL PO; -GABA-113 PO; +GABA1SOL3 PO; -GFNSR600 PO; -GLGKIT IM; +KCLI20/100 PO; -LIQUID PROTEIN PO; -MCRK20 PO; -MOML PO; +MORP10SO PO; +MRPL10 PO; -MULT-506 PO; +MULT-513 PO; -ONDA4TAB10 SL; -RANI150T85 PO; +RANI75SY PO; +RXNS10 PO; -SODIENE PR; -VANC5CAP PO
[2017-04-30 09:06] LABS: BLOOD UREA NITROGEN 8 mg/dl (7-18); CARBON DIOXIDE 28 mmol/L (21-32); CREATININE 0.47 mg/dl (0.60-1.20); GLUCOSE 135 mg/dl (70-99); POTASSIUM 4.4 mmol/L (3.5-5.1); SODIUM 143 mmol/L (136-145)
[2017-04-30 09:17] LABS: HEMATOCRIT 34.4 % (37-47); HEMOGLOBIN 10.5 g/dL (12.0-16.0); MEAN CELL VOLUME 98.9 fL (80-100); MEAN CORPUSCULAR HEMOGLOBIN 30.2 pg (25-34); MEAN CORPUSCULAR HGB CONC 30.5 g/dl (32-36); MEAN PLATELET VOLUME 11.4 fL (7.4-10.4); PLATELET COUNT 236 K/uL (130-400); RED CELL DISTRIBUTION WIDTH CV 18.9 % (11.5-14.5); RED CELL DISTRIBUTION WIDTH SD 68.1 fL (36.4-46.3); WHITE BLOOD COUNT 8.77 K/uL (4.8-10.8)
== END ==
LOC: C.LABUPBEA 08:35
PROVIDERS: ATTEND Nurse Practitioner Family
DX: D64.9 Anemia, unspecified (principal); E87.6 Hypokalemia

== ENCOUNTER 2017-05-01 11:42 | Emergency (ER) | payer OTHER ==
[~2017-05-01 11:42] MED LIST changes: -AMOX1TAB43 PO; -DRGTP75 TD; -FNTTP50 TD; -MORP10SO PO; -MRPL10 PO
[2017-05-01 11:45] VITALS: TEMP 37.3; O2SAT 97
[2017-05-01] MEDS ORDERED: OPTIRAY 320 IV PRN (12:30)
[2017-05-01] MEDS ORDERED: SODIUM CHLORIDE 0.9% 250ML 250 ML IV STA (12:46)
[2017-05-01 12:50] LABS: BASO % 0.6 %; BASO ABS # 0.05 K/uL (0-0.2); EOS % 2.8 %; EOS ABS # 0.25 K/uL (0-0.5); HEMATOCRIT 36.3 % (37-47); IG# 0.14 K/uL (0.00-0.02); LYMPH % 16.3 %; LYMPH ABS # 1.47 K/uL (1.2-3.4); MEAN CELL VOLUME 99.2 fL (80-100); MEAN CORPUSCULAR HEMOGLOBIN 30.1 pg (25-34); MEAN CORPUSCULAR HGB CONC 30.3 g/dl (32-36); MONO % 9.6 %; MONO ABS # 0.87 K/uL (0.11-0.59); NEUT % 69.1 %; NEUT ABS # 6.24 K/uL (1.4-6.5); NUCLEATED RED BLOOD CELL ABS 0.07 K/uL (0-0); PLATELET COUNT 268 K/uL (130-400); RED CELL DISTRIBUTION WIDTH CV 19.3 % (11.5-14.5); RED CELL DISTRIBUTION WIDTH SD 68.3 fL (36.4-46.3); WHITE BLOOD COUNT 9.02 K/uL (4.8-10.8)
[2017-05-01 12:56] LABS: INR 1.2 (0.9-1.1); PTT PATIENT 25.9 SECONDS (21.0-31.0)
[2017-05-01 12:58] LABS: ALT/SGPT 16 U/L (12-78); BLOOD UREA NITROGEN 10 mg/dl (7-18); CALCIUM 9.1 mg/dl (8.5-10.1); CARBON DIOXIDE 33 mmol/L (21-32); CREATININE 0.62 mg/dl (0.60-1.20); GLUCOSE 103 mg/dl (70-99); POTASSIUM 4.3 mmol/L (3.5-5.1); SODIUM 143 mmol/L (136-145)
--- NOTE | 2017-05-01 13:01 | DIAGNOSTIC IMAGING REPORT ---
CHEST ONE VIEW PORTABLE CLINICAL HISTORY: EVALUATE RESPIRATORY DISTRESS.DYSPNEA COMPARISON STUDY: 04/28/2017 FINDINGS: Persistent moderate cardiomegaly. Unchanging to perhaps slightly improved findings of pulmonary edema. Similar consolidative/effusion-type change left base. Permanent unipolar cardiac pacemaker in good position. IMPRESSION: Stable to slightly improved findings of pulmonary edema. Unchanging consolidative and/or effusion-type change left lung base. The above report was generated using voice recognition software. It may contain grammatical, syntax or spelling errors. Electronically signed by: Kelvin Stanley M.D. 05/01/2017 12:59 PM Dictated Date/Time: 05/01/2017 12:58 PM
--- NOTE | 2017-05-01 13:06 | EMERGENCY ROOM VISIT NOTE ---
History Report prepared by Bill: Freeman Jesus Under the Supervision of: Dr. Juni Fatima M.D. First contact with patient: 12:01 Chief Complaint: ALTERED MENTAL STATUS Stated Complaint: ALTERED MENTAL STATUS/SOB Nursing Triage Summary: See triage note History of Present Illness The patient is a 87 year old white female with a past medical history of dementia, A-fib, CKD, COPD, diabetes, HLD, HTN who presents to the ED with a cc of constant altered mental status beginning today. She is a resident at [facility]. Noticed to be confused by staff with an oxygen saturation of 70%. Patient is normally confused at baseline, but is normally able to communicate. She currently has a right humeral and right femur fracture (from two weeks ago) . HPI limited secondary to dementia. Source of History: patient History Limited By: dementia Onset: Today Quality: other (altered mental status) Timing: constant Review of Systems ROS limited secondary to dementia. 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 (14) PERIPH VASCULAR DIS NOS (15) pna, UTI, hypernatremia (16) Recurrent pneumonia Family History Unobtainable due to patient's condition Social History Smoking Status: Unknown if Ever Smoked Alcohol Use: none Drug Use: none Marital Status: Housing Status: assisted Occupation Status: retired Current/Historical Medications Scheduled Albuterol Sulf (Proventil 0.083% 2.5MG/3ML), 2.5 MG INH Q6H Alendronate Sodium (Alendronate Sodium), 70 MG PO WK Amlodipine (Norvasc), 5 MG PO DAILY Apixaban (Eliquis), 2.5 MG PO BID Ascorbic Acid (Ascorbic Acid), 25 MG PO DAILY Atorvastatin (Lipitor), 40 MG PO QPM Bacitracin/Polymyxin B (Polysporin), 1 APPLN TOP QPM Bacitracin/Polymyxin B (Polysporin), 1 APPLN TOP QPM Bepotastine Besilate (Bepreve), 1 DROP OPB BID Budesonide/Formoterol Fumarate (Symbicort 160/4.5 Inhaler ), 2 PUFFS INH BID Calcium Carbonate-Vitamin D (Oscal 500/200 D-3), 1 TAB PO BID Cholecalciferol (Vitamin D3), 2,000 UNITS PO DAILY Digoxin (Digoxin), 0.125 MG PO HS Fentanyl (Fentanyl), 25 MCG TD CQ72HR Fentanyl (Duragesic), 50 MCG TD CQ72HR Ferrous Sulfate (Ferrous Sulfate), 7.5 ML PO DAILY Gabapentin (Neurontin), 600 MG PO TID Guaifenesin (Guaifenesin), 10 ML PO TID Home O2 Therapy (Oxygen), 3 LITER NA CONTINOUS Insulin Aspart (Novolog Penfill), 6 UNITS SC AC Insulin Aspart (Novolog), 100 SC DIRECTED Insulin Glargine (Lantus Solostar), 10 UNITS SC QPM Lactobacillus (Lactobacillus), 1 TAB PO BID Latanoprost (Xalatan 0.005% Oph Anna), 1 DROPS OPB HS Levothyroxine Sodium (Levothyroxine Sodium), 25 MCG PO Q2D Magnesium Oxide (Mag-Ox), 400 MG PO BID Metoprolol Tartrate (Lopressor) (Lopressor), 25 MG PO BID Morphine Sulfate (Morphine Sulfate), 30 MG PO Q4H Multivitamins/Minerals (Mvi With Minerals), 1 TAB PO DAILY Potassium Chloride (Potassium Chloride), 20 MEQ PO BID Ranitidine Hcl (Zantac), 150 MG PO BID Ropinirole (Requip), 0.5 MG PO DAILY Saline (Saline Nasal [place]), 2 SPRAYS [place] BID Sertraline (Zoloft), 50 MG PO HS Umeclidinium-Vilanterol (Anoro Ellipta 62.5-25 Mcg/INH), 1 INHA PO QAM Scheduled PRN Acetaminophen (Tylenol), 1 SUPP [place] Q6H PRN for temp > 101 Acetaminophen Tab (Tylenol), 650 MG PO Q4 PRN for Pain or Fever Morphine Sulfate (Morphine Sulfate), 5 MG PO Q6H PRN for Pain Allergies Coded Allergies: RICHARD Inhibitors (Verified Allergy, Unknown, unknown, 05/01/17) Aspirin (Verified Allergy, Unknown, unknown, 05/01/17) [place] Atenolol (Verified Allergy, Unknown, unknown; TAKES TOPROL XL W/O PROBLEM , 05/01/17) Cefprozil (Verified Allergy, Unknown, unknown, 05/01/17) TOLERATED ROCEPHIN 02/2014 FOR MULTIPLE DOSES Ciprofloxacin (Verified Allergy, Unknown, unknown, 05/01/17) Codeine (Verified Allergy, Unknown, unknown, 05/01/17) Fluticasone (Verified Allergy, Unknown, Unknown, 05/01/17) Furosemide (Verified Allergy, Unknown, ., 05/01/17) Hydrochlorothiazide (Verified Allergy, Unknown, unknown, 05/01/17) Hydrochlorothiazide w/Triamterene (Verified Allergy, Unknown, unknown, ) Ibuprofen (Verified Allergy, Unknown, unknown; HAS TAKEN ASA W/O PROBLEM, 05/01/17) Lisinopril (Verified Allergy, Unknown, unknown, 05/01/17) Meperidine (Verified Allergy, Unknown, unknown, 05/01/17) Niacinamide (Verified Allergy, Unknown, NICOTINAMIDE, 05/01/17) Penicillins (Verified Allergy, Unknown, UNKNOWN, 05/01/17) TOLERATED ROCEPHIN 02/2014 FOR MULTIPLE DOSES, TOLERATED ZOSYN 08/26/2012-08/30 Quinolones (Verified Allergy, Unknown, 05/01/17) Rofecoxib (Verified Allergy, Unknown, unknown, 05/01/17) Salmeterol (Verified Allergy, Unknown, Unknown, 05/01/17) Spironolactone (Verified Allergy, Unknown, unknown, 05/01/17) Statins (Verified Allergy, Unknown, unknown, 05/01/17) Sulfa Antibiotics (Verified Allergy, Unknown, ., 05/01/17) Physical Exam Vital Signs Date Time Temp Pulse Resp B/P (MAP) Pulse Ox O2 Delivery O2 Flow Rate FiO2 05/01/17 16:00 88 16 155/49 100 Nasal Cannula 3.0 05/01/17 14:09 100 16 133/65 99 Nasal Cannula 3.0 05/01/17 11:45 37.3 104 16 133/60 94 Room Air 05/01/17 11:45 97 Nasal Cannula 2.0 Physical Exam GENERAL: Limited secondary to dementia. Non-verbal. HENT: Normocephalic, atraumatic. Noted anisocoria right greater than left, but round and reactive. EYES: Normal conjunctiva. Sclera non-icteric. NECK: Supple. No nuchal rigidity. FROM. RESPIRATORY: CTAB, no rhonchi, wheezing, crackles CARDIAC: RRR, no MRG ABDOMEN: Soft, NTND, BS+ MSK: No chest wall TTP, no LE edema. RIght AKA. NEURO: Intermittently follows commands. Opens eyes to voice. SKIN: No rash or jaundice noted. Fentanyl patch over right chest. Medical Decision & Procedures ER Provider Diagnostic Interpretation: Radiology results as stated below per my review and radiologist interpretation: CHEST ONE VIEW PORTABLE FINDINGS: Persistent moderate cardiomegaly. Unchanging to perhaps slightly improved findings of pulmonary edema. Similar consolidative/effusion-type change left base. Permanent unipolar cardiac pacemaker in good position. IMPRESSION: Stable to slightly improved findings of pulmonary edema. Unchanging consolidative and/or effusion-type change left lung base. The above report was generated using voice recognition software. It may contain grammatical, syntax or spelling errors. Electronically signed by: Kelvin Stanley M.D. 05/01/2017 12:[address] NONCONTRAST Findings: The paranasal sinuses and mastoid air cells are clear. The calvarium and skull base are intact. There is no mass, hematoma, midline shift, acute infarct. Mild atrophy and microvascular ischemic changes are again noted. Old left MCA territory infarct, unchanged. Impression: No significant change compared to the prior study. No acute intracranial abnormality. Old left MCA territory infarct is again noted. Electronically signed by: Eliazar Mckeon M.D. 05/01/2017 1:56 PM (CHEST FOR PE) ANGIO WITH FINDINGS: Moderate increase in cardiac size compared to the prior exam. Pulmonary vasculature enhances appropriately within limitations of moderate patient respiratory and somatic motion. Bilateral pleural effusions. Prominent pulmonary vasculature. Superimposed partial left lower lobe atelectatic change with a mild atelectasis right base. Considerable atherosclerotic change of the thoracic aorta IMPRESSION: 1. No evidence for pulmonary embolus. 2. Significant bilateral pleural effusions with atelectatic changes of the left lower lobe and to a lesser extent right base. 3. Findings of congestive failure versus pulmonary edema. The above report was generated using voice recognition software. It may contain grammatical, syntax or spelling errors. Electronically signed by: Kelvin Stanley M.D. 05/01/2017 2:06 PM NECK CTA FINDINGS: The visualized aortic arch is normal in caliber. Moderate calcified plaque at the aortic arch. There is mild narrowing at the origin of the left subclavian artery of less than 30%. Moderate calcified scattered plaque seen within the bilateral subclavian arteries. Suboptimal evaluation of the carotid and vertebral arteries due to the timing of contrast from the simultaneous chest CTA scanning. Moderate calcified plaque within the bilateral carotid bifurcations. This results in approximately 50% stenosis at the origins of the bilateral internal carotid arteries. The mid to distal bilateral internal carotid arteries appear patent. No sinus stenosis within the bilateral common carotid arteries. Evaluation of the vertebral arteries is essentially nondiagnostic. No definite occlusion identified at the vertebral arteries. Bilateral pleural effusions. Interlobular septal thickening at the lung apices consistent with pulmonary edema. Patchy densities at the left lung posteriorly favor compressive atelectasis from the pleural effusion. IMPRESSION: 1. Overall poor opacification of the cervical vessels due to the timing of contrast. 2. Approximately 50% stenosis at the origin of the bilateral internal carotid arteries due to the moderate calcified plaque. Otherwise, no areas of high-grade stenosis or occlusion seen within the common or internal carotid arteries. 3. The vertebral arteries are essentially nondiagnostic. No definite occlusion identified. 4. Pulmonary edema and bilateral pleural effusions. Electronically signed by: Eliazar Mckeon M.D. 05/01/2017 2:11 PM HEAD CTA FINDINGS: There is no mass, hematoma, midline shift, or acute infarct. Overall poor contrast opacification of the cerebral arteries due to the timing of contrast resulting in near nondiagnostic evaluation. This was due to the simultaneous CTA of the chest. No definite large vessel occlusion. Evaluation for significant stenosis is essentially nondiagnostic. No large aneurysms identified. The major dural venous sinuses appear patent. IMPRESSION: Near nondiagnostic evaluation of the cerebral arteries due to the timing of contrast. No definite large vessel occlusion identified. Electronically signed by: Eliazar Mckeon M.D. 05/01/2017 2:06 PM Laboratory Results 05/01/17 11:40 Red Blood Count 3.66, Mean Corpuscular Volume 99.2, Mean Corpuscular Hemoglobin 30.1, Mean Corpuscular Hemoglobin Concent 30.3, Mean Platelet Volume 11.0, Neutrophils (%) (Auto) 69.1, Lymphocytes (%) (Auto) 16.3, Monocytes (%) (Auto) 9.6, Eosinophils (%) (Auto) 2.8, Basophils (%) (Auto) 0.6, Neutrophils # (Auto) 6.24, Lymphocytes # (Auto) 1.47, Monocytes # (Auto) 0.87, Eosinophils # (Auto) 0.25, Basophils # (Auto) 0.05 05/01/17 11:40 Test 05/01/17 11:40 05/01/17 12:48 05/01/17 14:12 White Blood Count 9.02 K/uL (4.8-10.8) Red Blood Count 3.66 M/uL (4.2-5.4) Hemoglobin 11.0 g/dL (12.0-16.0) Hematocrit 36.3 % (37-47) Mean Corpuscular Volume 99.2 fL (80-100) Mean Corpuscular Hemoglobin 30.1 pg (25-34) Mean Corpuscular Hemoglobin Concent 30.3 g/dl (32-36) Platelet Count 268 K/uL (130-400) Mean Platelet Volume 11.0 fL (7.4-10.4) Neutrophils (%) (Auto) 69.1 % Lymphocytes (%) (Auto) 16.3 % Monocytes (%) (Auto) 9.6 % Eosinophils (%) (Auto) 2.8 % Basophils (%) (Auto) 0.6 % Neutrophils # (Auto) 6.24 K/uL (1.4-6.5) Lymphocytes # (Auto) 1.47 K/uL (1.2-3.4) Monocytes # (Auto) 0.87 K/uL (0.11-0.59) Eosinophils # (Auto) 0.25 K/uL (0-0.5) Basophils # (Auto) 0.05 K/uL (0-0.2) RDW Standard Deviation 68.3 fL (36.4-46.3) RDW Coefficient of Variation 19.3 % (11.5-14.5) Immature Granulocyte % (Auto) 1.6 % Immature Granulocyte # (Auto) 0.14 K/uL (0.00-0.02) Nucleated RBC Absolute Count (auto) 0.07 K/uL (0-0) Nucleated Red Blood Cells % 0.8 % Prothrombin Time 12.3 SECONDS (9.0-12.0) Prothromb Time International Ratio 1.2 (0.9-1.1) Activated Partial Thromboplast Time 25.9 SECONDS (21.0-31.0) Partial Thromboplastin Ratio 1.0 Anion Gap 4.0 mmol/L (3-11) Estimated GFR () 93.3 Estimated GFR (Non- 80.5 BUN/Creatinine Ratio 16.8 (10-20) Calcium Level 9.1 mg/dl (8.5-10.1) Total Bilirubin 0.7 mg/dl (0.2-1) Aspartate Amino Transf (AST/SGOT) 19 U/L (15-37) Alanine Aminotransferase (ALT/SGPT) 16 U/L (12-78) Alkaline Phosphatase 144 U/L (45-117) Total Creatine Kinase 24 U/L (26-192) Troponin I 0.061 ng/ml (0-0.045) Pro-B-Type Natriuretic Peptide 7419 pg/ml (0-1800) Total Protein 5.9 gm/dl (6.4-8.2) Albumin 2.0 gm/dl (3.4-5.0) Globulin 3.9 gm/dl (2.5-4.0) Albumin/Globulin Ratio 0.5 (0.9-2) Bedside Troponin I 0.050 ng/ml (0-0.045) Venous Blood pH 7.34 (7.36-7.41) Venous Blood Partial Pressure CO2 53 mmHg (38.0-50.0) Venous Blood Partial Pressure O2 75 mmHg Venous Blood HCO3 28 mmol/L Venous Blood Oxygen Saturation 94.0 % Venous Blood Base Excess 1.6 mEq/L Lactic Acid Level 1.0 mmol/L (0.4-2.0) Laboratory results reviewed by me Medications Administered Medications (Trade) Dose Ordered Sig/Tariq Route Start Time Stop Time Status Last Admin Dose Admin Sodium Chloride 250 ml @ 250 mls/hr Q1H STAT IV 05/01/17 12:46 05/01/17 13:45 DC 05/01/17 14:13 250 MLS/HR Fentanyl (Duragesic Patch) 50 mcg Q72H TD 05/01/17 16:15 05/15/17 16:14 05/01/17 17:04 50 MCG Morphine Sulfate (Roxanol Oral Soln) 30 mg Q4H PRN PO 05/01/17 15:45 05/15/17 15:44 05/01/17 17:13 30 MG ECG Per My Interpretation Indication: altered mental status Rate (beats per minute): 93 Rhythm: atrial fibrillation Findings: ST depression (lateral and hilateral), T-wave inversion (lateral and hilateral), ST elevation (slight, AVR), other (Normal QRS and QTC. ) Comparison ECG Date: 02/12/2017 Change: AVR and hilateral lead changes are new. ED Course 1216: The patient was evaluated in room C9. A complete history and physical exam was performed. 1445: Upon reexamination, the patient was resting comfortably. I discussed the test results and treatment plan with her. The patient will be evaluated for further management. 1550: I reevaluated the patient. Discussed results and discharge instructions: she verbalized understanding and agreement. The patient is ready for discharge. Medical Decision The patient is a 87 year old white female with a past medical history of dementia, A-fib, CKD, COPD, diabetes, HLD, HTN who presents to the ED with a cc of constant altered mental status beginning today. Differential diagnosis: Etiologies such as metabolic, infection, hypoglycemia, electrolyte abnormalities , cardiac sources, intracerebral event, toxicologic, neurologic, as well as others were entertained. Patient was seen and evaluated at the bedside. [facility] with concerns for some shortness of breath. Patient was satting in the 70s on room air. Patient normally does have some baseline dementia but is normally conversational at baseline. Of note the patient will open her eyes to voice and will intermittently follow commands. Patient was placed on 2 L nasal cannula. Patient has fairly good sats there. Of note the patient did have recent right humeral and right femoral fractures. Patient did have blood work completed, EKG, chest x-ray, troponin, VBG, lactate, CT head, CTA brain, CT PE protocol. Of note the patient did have some EKG changes. Upon review of the patient's medication list it is noted the patient is on 3 L nasal cannula at baseline. Patient did have a positive troponin however this is chronically elevated to baseline. Patient does have an elevated BNP. Patient did have a CT of the head which is negative acute and did show a left MCA infarct. Patient's CT of the chest did not show any acute PE but did show bilateral pleural effusions. Is concerning for CHF exacerbation. Patient was given Bumex IV. Patient had some difficulty with the diagnostic studies of her CTAs of the head and neck as the time bolus was not appropriate. I did discuss the patient's care with the family at bedside. The medicine service was paged. Currently pending a urinalysis. She was seen and evaluated by the medicine service did relate that the patient does have some chronic issues is currently comfort care only. The patient otherwise has fairly normal studies and even her positive troponin is chronic better than before. Again I discussed the EKG changes with cardiology who stated that they believe they are more subtle and really not indicative of any further workup or treatment at this time. After being seen by the hospitalist service the believe that they should start the patient on fentanyl patch as well as p.o. morphine. Patient was given prescriptions for these and at the recommendation of the hospitalist service they were deemed suitable for outpatient follow-up and treatment at this time. Upon further discussion with the patient's family members it is understood that the patient is DNR/DNI that they would not want any more aggressive treatment or care at this time. Patient was given these prescriptions and was transported back to her care facility. Medication Reconcilliation Current Medication List: was personally reviewed by me Blood Pressure Screening Patient's blood pressure: Elevated blood pressure Blood pressure disposition: Elevated BP felt to be situational Consults Time Called: 1340 Consulting Physician: Dr. Maldonado - Cardiology Returned Call: [phone] Discussed the patient's case. Dr. Maldonado does not feel that there is anything acute to do with the patient's care at this time. Additional Consults: Time Called: 1440 Consulted Physician: Dr. Ontiveros - [facility] Hospitalist Returned Call: [phone] Additional Comments: Dr. Ontiveros made aware of the patient's case. The patient will be evaluated for further treatment and disposition. 1543: I spoke with a [facility]IA [facility] regarding the patient's case. The patient would like to go home. The patient's family adds that they would like for the patient to be comfort measures only in regards to code status. The patient will be discharged home. Impression Primary Impression: CHF exacerbation Additional Impression: Altered mental status Scribe Attestation The scribe's documentation has been prepared under my direction and personally reviewed by me in its entirety. I confirm that the note above accurately reflects all work, treatment, procedures, and medical decision making performed by me. Departure Information Dispostion Home / Self-Care Prescriptions Morphine Sulfate (Morphine Sulfate) 2 Mg/1 Ml Soln 3 MG PO Q4H for 30 Days Prov: Juni Fatima M.D. 05/01/17 Fentanyl (DURAGESIC) 50 Mcg Tdsy 50 MCG TD CQ72HR for 30 Days, PATCH Prov: Juni Fatima M.D. 05/01/17 Referrals Jane Victoria (PCP) Patient Instructions ED Altered Loc, [facility] Additional Instructions Please return to the emergency department if you have worsening or recurrent symptoms not amenable to at-home treatment. Please call for a follow-up appointment with her primary care physician. Please take your medications as prescribed. If you have other concerns and/or complaints please feel free to also call your primary care physician's office or return the ED for further evaluation, management, and treatment. You received narcotic or benzodiazepene medication while in the emergency room today. This is an addictive medication that may cause drowziness as well as constipation. Do not drive, operate heavy machinery, or drink alcohol under the influence of this medication. Take your medications as prescribed. You have been examined and treated today on an emergency basis only. This is not a substitute for, or an effort to provide, complete comprehensive medical care. It is impossible to recognize and treat all injuries or illnesses in a single emergency department visit. It is therefore important that you follow up closely with [facility], your PCP, and/or your specialist(s). Call as soon as possible for an appointment. Thank you for your time and consideration. I look forward to speaking with you again soon. Please don't hesitate to call us if you have any questions. Problem Qualifiers Primary Impression: CHF exacerbation Heart failure type: systolic Qualified Codes: I50.23 - Acute on chronic systolic (congestive) heart failure Additional Impression: Altered mental status Coma depth: [place] coma 9-12 Coma timing: unspecified coma timing
[2017-05-01 13:10] LABS: ALKALINE PHOSPHATASE 144 U/L (45-117); AST/SGOT 19 U/L (15-37); TOTAL PROTEIN 5.9 gm/dl (6.4-8.2)
--- NOTE | 2017-05-01 13:57 | DIAGNOSTIC IMAGING REPORT ---
HEAD CT NONCONTRAST CT DOSE: HISTORY: noted anisocoria R>L, altered mental status TECHNIQUE: Multiaxial CT images of the head were performed without the use of intravenous contrast. Automated exposure control was utilized for this study. A dose lowering technique was utilized adhering to the principles of ALARA. Comparison: None. Findings: The paranasal sinuses and mastoid air cells are clear. The calvarium and skull base are intact. There is no mass, hematoma, midline shift, acute infarct. Mild atrophy and microvascular ischemic changes are again noted. Old left MCA territory infarct, unchanged. Impression: No significant change compared to the prior study. No acute intracranial abnormality. Old left MCA territory infarct is again noted. Electronically signed by: Eliazar Mckeon M.D. 05/01/2017 1:56 PM Dictated Date/Time: 05/01/2017 1:53 PM
--- NOTE | 2017-05-01 14:07 | DIAGNOSTIC IMAGING REPORT ---
(CHEST FOR PE) ANGIO WITH CT DOSE: 3543.25 mGy.cm HISTORY: Chest pain dyspnea TECHNIQUE: Multiaxial CT images of the chest were performed following the intravenous administration of contrast to evaluate the pulmonary arteries. Maximal intensity projection images were also obtained. A dose lowering technique was utilized adhering to the principles of ALARA. COMPARISON STUDY: 10/26/2016 FINDINGS: Moderate increase in cardiac size compared to the prior exam. Pulmonary vasculature enhances appropriately within limitations of moderate patient respiratory and somatic motion. Bilateral pleural effusions. Prominent pulmonary vasculature. Superimposed partial left lower lobe atelectatic change with a mild atelectasis right base. Considerable atherosclerotic change of the thoracic aorta IMPRESSION: 1. No evidence for pulmonary embolus. 2. Significant bilateral pleural effusions with atelectatic changes of the left lower lobe and to a lesser extent right base. 3. Findings of congestive failure versus pulmonary edema. The above report was generated using voice recognition software. It may contain grammatical, syntax or spelling errors. Electronically signed by: Kelvin Stanley M.D. 05/01/2017 2:06 PM Dictated Date/Time: 05/01/2017 1:59 PM
--- NOTE | 2017-05-01 14:07 | DIAGNOSTIC IMAGING REPORT ---
HEAD CTA HISTORY: Altered mental status. TECHNIQUE: Multiaxial CT images of the head were performed after the intravenous administration of contrast to evaluate the major cerebral vessels. Maximum intensity projection images were also obtained. A dose lowering technique was utilized adhering to the principles of ALARA. COMPARISON: Noncontrast Head CT 05/01/2017. FINDINGS: There is no mass, hematoma, midline shift, or acute infarct. Overall poor contrast opacification of the cerebral arteries due to the timing of contrast resulting in near nondiagnostic evaluation. This was due to the simultaneous CTA of the chest. No definite large vessel occlusion. Evaluation for significant stenosis is essentially nondiagnostic. No large aneurysms identified. The major dural venous sinuses appear patent. IMPRESSION: Near nondiagnostic evaluation of the cerebral arteries due to the timing of contrast. No definite large vessel occlusion identified. Electronically signed by: Eliazar Mckeon M.D. 05/01/2017 2:06 PM Dictated Date/Time: 05/01/2017 2:00 PM
--- NOTE | 2017-05-01 14:13 | DIAGNOSTIC IMAGING REPORT ---
NECK CTA HISTORY: Altered mental status. TECHNIQUE: Multiaxial CT images of the neck were performed following the intravenous administration of contrast to evaluate the major cervical vessels. Maximum intensity projection images were also obtained. All measurements were calculated based on NASCET criteria. A dose lowering technique was utilized adhering to the principles of ALARA. COMPARISON STUDY: None. FINDINGS: The visualized aortic arch is normal in caliber. Moderate calcified plaque at the aortic arch. There is mild narrowing at the origin of the left subclavian artery of less than 30%. Moderate calcified scattered plaque seen within the bilateral subclavian arteries. Suboptimal evaluation of the carotid and vertebral arteries due to the timing of contrast from the simultaneous chest CTA scanning. Moderate calcified plaque within the bilateral carotid bifurcations. This results in approximately 50% stenosis at the origins of the bilateral internal carotid arteries. The mid to distal bilateral internal carotid arteries appear patent. No sinus stenosis within the bilateral common carotid arteries. Evaluation of the vertebral arteries is essentially nondiagnostic. No definite occlusion identified at the vertebral arteries. Bilateral pleural effusions. Interlobular septal thickening at the lung apices consistent with pulmonary edema. Patchy densities at the left lung posteriorly favor compressive atelectasis from the pleural effusion. IMPRESSION: 1. Overall poor opacification of the cervical vessels due to the timing of contrast. 2. Approximately 50% stenosis at the origin of the bilateral internal carotid arteries due to the moderate calcified plaque. Otherwise, no areas of high-grade stenosis or occlusion seen within the common or internal carotid arteries. 3. The vertebral arteries are essentially nondiagnostic. No definite occlusion identified. 4. Pulmonary edema and bilateral pleural effusions. Electronically signed by: Eliazar Mckeon M.D. 05/01/2017 2:11 PM Dictated Date/Time: 05/01/2017 2:06 PM
[2017-05-01] MEDS ORDERED: BUMETANIDE SOLN 1 MG/4 ML VIAL IV ONE (14:30)
[2017-05-01] MEDS ORDERED: BUMETANIDE IV 1 MG in SYRINGE 0 ML IV ONE (15:15)
[2017-05-01] MEDS ORDERED: MoRPHine SULFATE 5 MG/0.25 ML UDP PO PRN (15:45)
[2017-05-01] MEDS ORDERED: FENTANYL 50 MCG/HR TDSY TD SCH (16:15)
--- NOTE | 2017-05-01 16:20 | Medical Consult ---
Consultation Date of Consultation: May 01, 2017. Attending Physician: Reason for Consultation: Medical Consultation History of Present Illness This is an 87 yo F with PMHx of Rapid Atrial Fibrillation/ AV Dissociation/ AV Block - S/P Pacer, CKD Stage II, Chronic Respiratory Failure 2/2 COPD - Chronic Supplemental O2, T2DM, HLD, HTN, Peripheral Vascular Disease, RLE AKA, Aortic Stenosis, shelter anticoagulation, H/o MCA territory CVA with expressive aphasia, RLS, GERD, Depression, Osteoporosis, Hypothyroidism, Iron deficiency anemia, Chronic diastolic CHF, Pulmonary HTN, Mild aortic regurgitation. Pt presents to the ER from [facility] due to increased pain, and had an oxygen level in the 70s on room air. The patient typically wears 3L O2 at all times for her chronic respiratory issues. She has been talking to family at her baseline of a few words (due to severe dementia) which are present at bedside here. Her O2 level is 90-95% on 3L during my visit. The patients code status at [facility] was Full Code, This was not changed since her previous admission to our facility which occurred from 04/20-04/28, discharged only 3 days ago. At that time she had sustained a fracture to the right shoulder, and the right hip, and it was determined that she was a poor surgical candidate, therefore no surgical intervention was undertaken. Palliative care met with her during that admission, and it was decided that she was comfort measures only. The family including a son, and two sisters are present at bedside today and confirm this. They would like no aggressive measures, and want their mother to be comfortable. They are agreeable to transition to palliative care/hospice at [facility]. Past Medical/Surgical History 1. Rapid Atrial Fibrillation/ AV Dissociation/ AV Block - S/P Pacer 2. CKD Stage II 3. Chronic Respiratory Failure 2/2 COPD - Chronic Supplemental O2 4. T2DM 5. HLD 6. HTN 7. Peripheral Vascular Disease 8. RLE AKA 9. Aortic Stenosis 10. shelter anticoagulation 11. H/o MCA territory CVA with expressive aphasia 12. RLS 13. GERD 14. Depression 15. Osteoporosis 16. Hypothyroidism 17. Iron deficiency anemia 18. Chronic diastolic CHF 19. Pulmonary HTN 20. Mild aortic regurgitation Family History Unobtainable due to patient's condition Social History Smoking Status: Unknown if Ever Smoked Drug Use: none Marital Status: Housing Status: fpc Occupation Status: retired Allergies Coded Allergies: RICHARD Inhibitors (Verified Allergy, Unknown, unknown, 05/01/17) Aspirin (Verified Allergy, Unknown, unknown, 05/01/17) [place] Atenolol (Verified Allergy, Unknown, unknown; TAKES TOPROL XL W/O PROBLEM , 05/01/17) Cefprozil (Verified Allergy, Unknown, unknown, 05/01/17) TOLERATED ROCEPHIN 02/2014 FOR MULTIPLE DOSES Ciprofloxacin (Verified Allergy, Unknown, unknown, 05/01/17) Codeine (Verified Allergy, Unknown, unknown, 05/01/17) Fluticasone (Verified Allergy, Unknown, Unknown, 05/01/17) Furosemide (Verified Allergy, Unknown, ., 05/01/17) Hydrochlorothiazide (Verified Allergy, Unknown, unknown, 05/01/17) Hydrochlorothiazide w/Triamterene (Verified Allergy, Unknown, unknown, ) Ibuprofen (Verified Allergy, Unknown, unknown; HAS TAKEN ASA W/O PROBLEM, 05/01/17) Lisinopril (Verified Allergy, Unknown, unknown, 05/01/17) Meperidine (Verified Allergy, Unknown, unknown, 05/01/17) Niacinamide (Verified Allergy, Unknown, NICOTINAMIDE, 05/01/17) Penicillins (Verified Allergy, Unknown, UNKNOWN, 05/01/17) TOLERATED ROCEPHIN 02/2014 FOR MULTIPLE DOSES, TOLERATED ZOSYN 08/26/2012-08/30 Quinolones (Verified Allergy, Unknown, 05/01/17) Rofecoxib (Verified Allergy, Unknown, unknown, 05/01/17) Salmeterol (Verified Allergy, Unknown, Unknown, 05/01/17) Spironolactone (Verified Allergy, Unknown, unknown, 05/01/17) Statins (Verified Allergy, Unknown, unknown, 05/01/17) Sulfa Antibiotics (Verified Allergy, Unknown, ., 05/01/17) Current Inpatient Medications Current Inpatient Medications Medications (Trade) Dose Ordered Sig/Tariq Route Start Time Stop Time Status Last Admin Dose Admin Ioversol (Optiray 320) 125 ml UD PRN IV 05/01/17 12:30 05/05/17 12:29 Review of Systems Not obtainable due to severe dementia. Physical Exam Date Time Temp Pulse Resp B/P (MAP) Pulse Ox O2 Delivery O2 Flow Rate FiO2 05/01/17 14:09 100 16 133/65 99 Nasal Cannula 3.0 05/01/17 11:45 37.3 104 16 133/60 94 Room Air 05/01/17 11:45 97 Nasal Cannula 2.0 General Appearance: WD/WN, + mild distress, + obese Head: normocephalic, atraumatic Eyes: PERRL, EOMI ENT: hearing grossly normal, + pertinent finding (pharynx with poor dentition, severely dry mucous membranes) Neck: supple, no JVD Respiratory/Chest: lungs clear, no respiratory distress, no accessory muscle use Cardiovascular: + systolic murmur (grade III/ ), + irregularly irregular ( rate controlled) Abdomen/GI: non tender, soft, + pertinent finding (hypoactive bowel sounds) Back: normal inspection, no CVA tenderness Extremities/Musculoskelatal: + pertinent finding (Right AKA, Left leg without calf pain, unable to move on command due to pain from fractures. No peripheral edema or erythema of the LLE. Multiple ecchymotic lesions of Bilat UE. ) Neurologic/Psych: alert, + pertinent finding (orientation not able to be assessed, speech is somewhat muffled, moans in pain. ) Skin: normal color, warm/dry Laboratory Results Last 24 Hours Test 05/01/17 11:40 05/01/17 12:48 05/01/17 13:58 05/01/17 14:12 White Blood Count 9.02 K/uL Red Blood Count 3.66 M/uL Hemoglobin 11.0 g/dL Hematocrit 36.3 % Mean Corpuscular Volume 99.2 fL Mean Corpuscular Hemoglobin 30.1 pg Mean Corpuscular Hemoglobin Concent 30.3 g/dl Platelet Count 268 K/uL Mean Platelet Volume 11.0 fL Neutrophils (%) (Auto) 69.1 % Lymphocytes (%) (Auto) 16.3 % Monocytes (%) (Auto) 9.6 % Eosinophils (%) (Auto) 2.8 % Basophils (%) (Auto) 0.6 % Neutrophils # (Auto) 6.24 K/uL Lymphocytes # (Auto) 1.47 K/uL Monocytes # (Auto) 0.87 K/uL Eosinophils # (Auto) 0.25 K/uL Basophils # (Auto) 0.05 K/uL RDW Standard Deviation 68.3 fL RDW Coefficient of Variation 19.3 % Immature Granulocyte % (Auto) 1.6 % Immature Granulocyte # (Auto) 0.14 K/uL Nucleated RBC Absolute Count (auto) 0.07 K/uL Nucleated Red Blood Cells % 0.8 % Prothrombin Time 12.3 SECONDS Prothromb Time International Ratio 1.2 Activated Partial Thromboplast Time 25.9 SECONDS Partial Thromboplastin Ratio 1.0 Sodium Level 143 mmol/L Potassium Level 4.3 mmol/L Chloride Level 107 mmol/L Carbon Dioxide Level 33 mmol/L Anion Gap 4.0 mmol/L Blood Urea Nitrogen 10 mg/dl Creatinine 0.62 mg/dl Estimated GFR () 93.3 Estimated GFR (Non- 80.5 BUN/Creatinine Ratio 16.8 Random Glucose 103 mg/dl Calcium Level 9.1 mg/dl Total Bilirubin 0.7 mg/dl Aspartate Amino Transf (AST/SGOT) 19 U/L Alanine Aminotransferase (ALT/SGPT) 16 U/L Alkaline Phosphatase 144 U/L Total Creatine Kinase 24 U/L Troponin I 0.061 ng/ml Pro-B-Type Natriuretic Peptide 7419 pg/ml Total Protein 5.9 gm/dl Albumin 2.0 gm/dl Globulin 3.9 gm/dl Albumin/Globulin Ratio 0.5 Bedside Troponin I 0.050 ng/ml Venous Blood pH 7.34 Venous Blood Partial Pressure CO2 53 mmHg Venous Blood Partial Pressure O2 75 mmHg Venous Blood HCO3 28 mmol/L Venous Blood Oxygen Saturation 94.0 % Venous Blood Base Excess 1.6 mEq/L Lactic Acid Level 1.0 mmol/L Assessment & Plan This is an 87 yo F with PMHx of Rapid Atrial Fibrillation/ AV Dissociation/ AV Block - S/P Pacer, CKD Stage II, Chronic Respiratory Failure 2/2 COPD - Chronic Supplemental O2, T2DM, HLD, HTN, Peripheral Vascular Disease, RLE AKA, Aortic Stenosis, shelter anticoagulation, H/o MCA territory CVA with expressive aphasia, RLS, GERD, Depression, Osteoporosis, Hypothyroidism, Iron deficiency anemia, Chronic diastolic CHF, Pulmonary HTN, Mild aortic regurgitation. Pt presents to the ER from [facility] due to increased pain, and had an oxygen level in the 70s on room air. The patient typically wears 3L O2 at all times for her chronic respiratory issues. She has been talking to family at her baseline of a few words (due to severe dementia) which are present at bedside here. Her O2 level is 90-95% on 3L during my visit. The patients code status at [facility] was Full Code, This was not changed since her previous admission to our facility which occurred within the past 2 weeks. At that time she had sustained a fracture to the Right proximal humerus and the right hip; it was determined that she was a poor surgical candidate, therefore no surgical intervention was undertaken. Palliative care met with her during that admission, and it was decided that she was comfort measures only. The family including a son, and two sisters are present at bedside today and confirm this. They would like no aggressive measures, and want their mother to be comfortable. They are agreeable to transition to palliative care/hospice at [facility]. Plan: Transition to palliative care/hospice - Pain control with fentanyl 50 mcg patch increase, along with concentrated morphine sulfate drops due to inability to take PO meds and poor pain control. This has been discussed with Dr. Fatima in the ER to monitor improvement with oral drops and then will proceed with transition back to [facility] today on comfort measure only. - Maintain O2 sats between 88-92% on 3L at all times - Low air loss mattress, frequent turn and repo for comfort Mild hyponatremia - NA 133 due to poor oral intake. Anemia- Hgb is stable, and actually improved compared to discharge 3 days ago Afib -continue digoxin PT is completely bedbound status, continue her Eliquis to prevent DVT and stroke--> should be on 5mg bid dose given Weight > 60kg and normal Creatinine but will defer to PCP to change as the PCP started it at 2.5mg dose. DM II- Hypoglycemia-poor p.o. intake, insulin had been adjusted during previous admission Thank you for allowing us to participate in the care of Mrs. Powell. Resident Physician Supervision Note: Pt evaluated independently - discussed with family. I discussed the case with the PA as well and agree with the findings and plan as documented in the note. Any exceptions or clarifications are listed here: 87 Y/O F Pacer, CKD II, COPD w/Chronic Respiratory Failure, DM II, HPL, HTN, PAD , , CVA w/aphasia, Hypothyroidism, anemia, Chronic diastolic CHF, Pulmonary HTN. Pt is on hospice - recently suffered multiple fractures and was unable to control her pain. OA Pt is somnolent after receiving narcotic S1,2 R Poor resp effort - limited exam - lung generally clear NT, ND +ed P: Following discussion with pt and family - she would like to be DCd if she can receive appropriate scripts to control her pain This has been arranged with the ER and she can be DCd to resume hospice care Documented By: Wan Ontiveros
[2017-05-01] MEDS ORDERED: MRPL10 PO ×2 (16:36→17:23)
[2017-05-01] MEDS ORDERED: FNTTP50 TD (16:36)
[2017-05-01 18:48] VITALS: BP 156/65; PULSE 73; O2SAT 100
[2017-05-03] MEDS ORDERED: MORP10SO PO (03:11)
[2017-05-04] MEDS ORDERED: RXNS10 PO (18:36)
[2017-05-04] MEDS ORDERED: DRGTP75 TD (18:36)
[2017-05-04] MEDS ORDERED: AMOX1TAB43 PO (18:36)
== END 2017-05-01 18:50 | disposition home or self-care (01) ==
LOC: EDBD 11:42 → C.EDC 11:43
DX: I50.33 Acute on chronic diastolic (congestive) heart failure (principal); R41.82 Altered mental status, unspecified; I48.91 Unspecified atrial fibrillation; J44.9 Chronic obstructive pulmonary disease, unspecified; E78.5 Hyperlipidemia, unspecified; I12.9 Hypertensive chronic kidney disease with stage 1 through stage 4 chronic kidney disease, or unspecified chronic kidney disease; Z88.1 Allergy status to other antibiotic agents; Z88.8 Allergy status to other drugs, medicaments and biological substances; Z88.0 Allergy status to penicillin; Z88.2 Allergy status to sulfonamides; K21.9 Gastro-esophageal reflux disease without esophagitis; Z99.81 Dependence on supplemental oxygen; S72.011D Unspecified intracapsular fracture of right femur, subsequent encounter for closed fracture with routine healing; S42.201D Unspecified fracture of upper end of right humerus, subsequent encounter for fracture with routine healing; X58.XXXD Exposure to other specified factors, subsequent encounter; N18.2 Chronic kidney disease, stage 2 (mild); I73.9 Peripheral vascular disease, unspecified; Z87.01 Personal history of pneumonia (recurrent); Z79.01 Long term (current) use of anticoagulants; Z79.4 Long term (current) use of insulin; Z79.899 Other long term (current) drug therapy; Z66 Do not resuscitate; J96.10 Chronic respiratory failure, unspecified whether with hypoxia or hypercapnia; Z89.611 Acquired absence of right leg above knee; I35.0 Nonrheumatic aortic (valve) stenosis; I69.320 Aphasia following cerebral infarction; G25.81 Restless legs syndrome; F32.9 Major depressive disorder, single episode, unspecified; M81.0 Age-related osteoporosis without current pathological fracture; E03.9 Hypothyroidism, unspecified; D50.9 Iron deficiency anemia, unspecified; I27.20 Pulmonary hypertension, unspecified; Z51.5 Encounter for palliative care; E87.1 Hypo-osmolality and hyponatremia; E11.649 Type 2 diabetes mellitus with hypoglycemia without coma

== ENCOUNTER 2017-05-03 01:50 | Inpatient (IN) | payer OTHER ==
[~2017-05-03] VITALS: Ht 165.1 cm; Wt 86.4 kg
[2017-05-03] VITALS (8 sets, daily range): BP systolic 108–137; BP diastolic 56–77; PULSE 60–85; TEMP 36.8–37.1; O2SAT 91–100; Ht 165.1 cm; Wt 86.4 kg
[~2017-05-03 01:50] MED LIST changes: +ALEN1TAB PO; +BENZ100C7 PO; +BISA10SU7 PR; +BMX1 PO; +CEFD300C3 PO; +DEXT40GE MT; +FNTTP50 TD; +FRRS300 PO; +GABA-113 PO; +GFNSR600 PO; +GLGKIT IM; +LIQUID PROTEIN PO; +MCRK20 PO; +MOML PO; +MRPL10 PO; +MULT-506 PO; +ONDA4TAB10 SL; +RANI150T85 PO; +SODIENE PR; +VANC5CAP PO
--- NOTE | 2017-05-03 02:26 | EMERGENCY ROOM VISIT NOTE ---
History Report prepared by Bill: Omayra Tello Under the Supervision of: Dr. Teresa Barton D.O. First contact with patient: 02:11 Chief Complaint: RESPIRATORY PROBLEMS Stated Complaint: RESPIRATORY DIFFICULTY History of Present Illness The patient is a 87 year old female who presents to the Emergency Room with complaints of problems breathing station captain. HPI limited due to patient's clinical condition. As per nursing staff, EMS states she fell out of bed and broke her arm previously, patient typically immobile. EMS reported correction staff had placed a CPAP mask on the patient and had sats in the 60s, however when may place the patient on a nonrebreather and gave her a neb treatment, her sats were in the 90s. Patient wears 3 L of oxygen via nasal cannula chronically. Patient recently admitted with pneumonia and recent visit to the emergency room for congestive heart failure. Patient has a history of dementia Source of History: EMS, nursing staff Onset: station captain Review of Systems See HPI for pertinent positives & negatives. ROS limited due to patient's clinical condition. Past Medical & Surgical Medical Problems: (1) Abdominal pain (2) ATRIAL FIBRILLATION (3) CELLULITIS OF LEG (4) CHRONIC KIDNEY DISEASE, STAGE II (MILD) (5) Chronic obstructive lung disease (6) Colonoscopy (7) Diabetes (8) HCAP (healthcare-associated pneumonia) (9) Heart Disease (10) Hospital-acquired pneumonia (11) HYPERLIPIDEMIA NEC/NOS (12) Hypertension (13) HYPERTENSION NOS (14) Hypoxia (15) METHICILLIN RESISTANT STAPHYLOCOCCUS AUREUS ELSEWHERE/NOS (16) PERIPH VASCULAR DIS NOS (17) pna, UTI, hypernatremia (18) Recurrent pneumonia Family History Unobtainable due to patient's condition Social History Smoking Status: Unknown if Ever Smoked Alcohol Use: none Drug Use: none Marital Status: Housing Status: correction Occupation Status: retired Current/Historical Medications Scheduled Albuterol Sulf (Proventil 0.083% 2.5MG/3ML), 2.5 MG INH Q6H Amlodipine (Norvasc), 5 MG PO DAILY Apixaban (Eliquis), 2.5 MG PO DAILY Ascorbic Acid (Ascorbic Acid), 250 MG PO DAILY Atorvastatin (Lipitor), 40 MG PO QPM Bepotastine Besilate (Bepreve), 1 DROP OPB BID Budesonide/Formoterol Fumarate (Symbicort 160/4.5 Inhaler ), 2 PUFFS INH BID Calcium Carbonate-Vitamin D (Oscal 500/200 D-3), 1 TAB PO BID Cholecalciferol (Vitamin D3), 2,000 UNITS PO DAILY Digoxin (Digoxin), 0.125 MG PO HS Fentanyl (Duragesic), 50 MCG TD CQ72HR Ferrous Sulfate (Ferrous Sulfate), 5 ML PO DAILY Gabapentin (Neurontin), 600 MG PO TID Guaifenesin (Guaifenesin), 10 ML PO TID Home O2 Therapy (Oxygen), 3 LITER NA CONTINOUS Insulin Aspart (Novolog Penfill), 6 UNITS SC AC Insulin Aspart (Novolog), 100 SC DIRECTED Insulin Glargine (Lantus Solostar), 10 UNITS SC QPM Lactobacillus (Lactobacillus), 1 TAB PO BID Latanoprost (Xalatan 0.005% Oph Anna), 1 DROPS OPB HS Levothyroxine Sodium (Levothyroxine Sodium), 25 MCG PO Q2D Magnesium Oxide (Mag-Ox), 400 MG PO BID Metoprolol Tartrate (Lopressor) (Lopressor), 25 MG PO BID Multivitamins/Minerals (Mvi With Minerals), 1 TAB PO DAILY Potassium Chloride (Potassium Chloride), 20 MEQ PO BID Ranitidine Hcl (Zantac), 150 MG PO BID Ropinirole (Requip), 0.5 MG PO DAILY Saline (Saline Nasal [place]), 2 SPRAYS ADELA DAILY Sertraline (Zoloft), 50 MG PO HS Umeclidinium-Vilanterol (Anoro Ellipta 62.5-25 Mcg/INH), 1 INHA PO QAM Scheduled PRN Acetaminophen (Tylenol), 1 SUPP OK Q6H PRN for temp > 101 Acetaminophen Tab (Tylenol), 650 MG PO Q6 PRN for Pain or Fever Morphine Sulfate (Morphine Sulfate), 6 MG PO Q3 hrs PRN for pain 1-10,dyspnea related Allergies Coded Allergies: RICHARD Inhibitors (Verified Allergy, Unknown, unknown, 05/03/17) Aspirin (Verified Allergy, Unknown, unknown, 05/03/17) [facility] Atenolol (Verified Allergy, Unknown, unknown; TAKES TOPROL XL W/O PROBLEM , 05/03/17) Cefprozil (Verified Allergy, Unknown, unknown, 05/03/17) TOLERATED ROCEPHIN 02/2014 FOR MULTIPLE DOSES Ciprofloxacin (Verified Allergy, Unknown, unknown, 05/03/17) Codeine (Verified Allergy, Unknown, unknown, 05/03/17) Fluticasone (Verified Allergy, Unknown, Unknown, 05/03/17) Furosemide (Verified Allergy, Unknown, ., 05/03/17) Hydrochlorothiazide (Verified Allergy, Unknown, unknown, 05/03/17) Hydrochlorothiazide w/Triamterene (Verified Allergy, Unknown, unknown, ) Ibuprofen (Verified Allergy, Unknown, unknown; HAS TAKEN ASA W/O PROBLEM, 05/03/17) Lisinopril (Verified Allergy, Unknown, unknown, 05/03/17) Meperidine (Verified Allergy, Unknown, unknown, 05/03/17) Niacinamide (Verified Allergy, Unknown, NICOTINAMIDE, 05/03/17) Penicillins (Verified Allergy, Unknown, UNKNOWN, 05/03/17) TOLERATED ROCEPHIN 02/2014 FOR MULTIPLE DOSES, TOLERATED ZOSYN 08/26/2012-08/30 Quinolones (Verified Allergy, Unknown, 05/03/17) Rofecoxib (Verified Allergy, Unknown, unknown, 05/03/17) Salmeterol (Verified Allergy, Unknown, Unknown, 05/03/17) Spironolactone (Verified Allergy, Unknown, unknown, 05/03/17) Statins (Verified Allergy, Unknown, unknown, 05/03/17) Sulfa Antibiotics (Verified Allergy, Unknown, ., 05/03/17) Physical Exam Vital Signs Date Time Temp Pulse Resp B/P (MAP) Pulse Ox O2 Delivery O2 Flow Rate FiO2 05/03/17 06:06 87 05/03/17 05:31 87 147/71 95 Nasal Cannula 4.0 05/03/17 02:54 96 05/03/17 02:03 94 Nasal Cannula 4.0 05/03/17 02:00 91 05/03/17 01:56 37.7 89 16 130/68 94 Nasal Cannula 4.0 Physical Exam GENERAL: alert, ill appearing, obese, no distress, non-toxic, EYE EXAM: normal conjunctiva, PERRL and EOM's grossly intact OROPHARYNX: no exudate, no erythema, lips, buccal mucosa, and tongue normal and mucous membranes are moist NECK: supple, no nuchal rigidity, no adenopathy, non-tender LUNGS: Normal chest wall mechanics. Diminished bilaterally, no wheezes rhonchi or rales HEART: no murmurs, S1 normal and S2 normal. Systolic ejection murmur most pronounced at the left sternal border. ABDOMEN: abdomen soft, non-tender, normo-active bowel sounds, no masses, no rebound or guarding. BACK: Back is symmetrical on inspection and there is no deformity, no midline tenderness, no CVA tenderness. SKIN: no rashes and no bruising UPPER EXTREMITIES: multiple ecchymotic area noted to the proximal right upper extremity. Normal pulses bilaterally LOWER EXTREMITIES: right AKA, stump well healed. Left had normal pulses. NEURO EXAM: awake and alert, will not answer questions, unable to cooperate for additional neuro testing Medical Decision & Procedures ER Provider Diagnostic Interpretation: Radiology results have been interpreted by me and reviewed by me. CHEST X RAY cardiomegaly, pacemaker noted, no obvious right sided effusion , patient rotated and unable to see left diaphragmatic angle, increased interstitial markings compared to prior Laboratory Results 05/03/17 03:02 Red Blood Count 3.68, Mean Corpuscular Volume 102.2, Mean Corpuscular Hemoglobin 30.4, Mean Corpuscular Hemoglobin Concent 29.8, Mean Platelet Volume 11.1, Neutrophils (%) (Auto) 88.8, Lymphocytes (%) (Auto) 3.0, Monocytes (%) ( Auto) 6.5, Eosinophils (%) (Auto) 1.2, Basophils (%) (Auto) 0.1, Neutrophils # ( Auto) 16.68, Lymphocytes # (Auto) 0.56, Monocytes # (Auto) 1.23, Eosinophils # ( Auto) 0.23, Basophils # (Auto) 0.01 05/03/17 03:02 Test 05/03/17 03:02 05/03/17 03:12 White Blood Count 18.78 K/uL (4.8-10.8) Red Blood Count 3.68 M/uL (4.2-5.4) Hemoglobin 11.2 g/dL (12.0-16.0) Hematocrit 37.6 % (37-47) Mean Corpuscular Volume 102.2 fL (80-100) Mean Corpuscular Hemoglobin 30.4 pg (25-34) Mean Corpuscular Hemoglobin Concent 29.8 g/dl (32-36) Platelet Count 290 K/uL (130-400) Mean Platelet Volume 11.1 fL (7.4-10.4) Neutrophils (%) (Auto) 88.8 % Lymphocytes (%) (Auto) 3.0 % Monocytes (%) (Auto) 6.5 % Eosinophils (%) (Auto) 1.2 % Basophils (%) (Auto) 0.1 % Neutrophils # (Auto) 16.68 K/uL (1.4-6.5) Lymphocytes # (Auto) 0.56 K/uL (1.2-3.4) Monocytes # (Auto) 1.23 K/uL (0.11-0.59) Eosinophils # (Auto) 0.23 K/uL (0-0.5) Basophils # (Auto) 0.01 K/uL (0-0.2) RDW Standard Deviation 70.5 fL (36.4-46.3) RDW Coefficient of Variation 19.3 % (11.5-14.5) Immature Granulocyte % (Auto) 0.4 % Immature Granulocyte # (Auto) 0.07 K/uL (0.00-0.02) Nucleated RBC Absolute Count (auto) 0.04 K/uL (0-0) Nucleated Red Blood Cells % 0.2 % Prothrombin Time 12.0 SECONDS (9.0-12.0) Prothromb Time International Ratio 1.1 (0.9-1.1) Anion Gap 5.0 mmol/L (3-11) Estimated GFR () 97.6 Estimated GFR (Non- 84.3 BUN/Creatinine Ratio 19.5 (10-20) Calcium Level 9.3 mg/dl (8.5-10.1) Total Bilirubin 1.0 mg/dl (0.2-1) Aspartate Amino Transf (AST/SGOT) 19 U/L (15-37) Alanine Aminotransferase (ALT/SGPT) 14 U/L (12-78) Alkaline Phosphatase 170 U/L (45-117) Troponin I 0.044 ng/ml (0-0.045) Pro-B-Type Natriuretic Peptide 2694 pg/ml (0-1800) Total Protein 6.7 gm/dl (6.4-8.2) Albumin 2.3 gm/dl (3.4-5.0) Globulin 4.4 gm/dl (2.5-4.0) Albumin/Globulin Ratio 0.5 (0.9-2) Arterial Blood pH 7.38 (7.35-7.45) Arterial Blood Partial Pressure CO2 56 mmHg (35-46) Arterial Blood Partial Pressure O2 69 mm/Hg (80-95) Arterial Blood HCO3 32 mmol/L (19-24) Arterial Blood Oxygen Saturation 92.4 % (90-95) Arterial Blood Base Excess 5.7 mEq/L (-9-1.8) Arterial Blood Gas Delivery 4.5 L Yifan Test POS (POS) Laboratory results per my review. Medications Administered Medications (Trade) Dose Ordered Sig/Tariq Route Start Time Stop Time Status Last Admin Dose Admin Vancomycin HCl (Vancomycin 1gm/ 270ml Nss) 1 gm NOW STAT IV 05/03/17 04:20 05/03/17 04:22 DC 05/03/17 04:47 1 GM ECG Per My Interpretation Indication: SOB/dyspnea Rate (beats per minute): 88 Rhythm: sinus rhythm Findings: other (an occasional PAC; normal axis and normal intervals; inverted T waves in leads 1, 2, AVL, and V5 and V6) Comparison ECG Date: 05/01/2017 Change: no significant change ED Course 0214: The patient was evaluated in room B7. A complete history and physical exam was performed. 0418: Discussions with patients daughter and son. Son is the [facility]. Patient DNR, DNI. Ok to admit to the hospital and to give IV antibiotics. 0420: Zosyn Iv 4.5 gm IV Vancomycin HCl 1 gm IV 0425: Discussions with patients daughter and son. Son is the [employer]. Patient DNR DNI. Ok to admit to the hospital and to give IV antibiotics. 0438: I reviewed the patient's case with Dr. Toth, Resident with [facility]. He will evaluate the patient for further management. Medical Decision Differential diagnosis: Etiologies such as infections, reactive airway disease, pneumonia, pneumothorax , COPD, CHF, cardiac ischemia, pulmonary embolism, musculoskeletal, gastrointestinal, as well as others were entertained. Patient well-appearing here with multiple comorbidities. Patient with dementia and chronically immobile. Patient chronically on oxygen. No recent use of steroids. Patient with recent hip and humeral fracture secondary to rolling out of bed. Patient has fentanyl patch and prn morphine listed on her medication list. Patient with history of CHF, although BNP tonight improved compared to prior. Kidney function appears at baseline as does H&H. Patient with new leukocytosis compared to 2 days ago. Patient did not have a fever here. Patient with no increased work of breathing, and oxygen levels maintained in the mid 90s on her 3-4 L via nasal cannula. Concern for evolving pneumonia given worsening appearance of chest x-ray and leukocytosis, blood cultures were drawn and patient started on vancomycin and Zosyn after additional discussion with the patient's son and daughter. Patient with some Sirs criteria and possible evolving sepsis. Patient high-risk of decompensation. Still awaiting cath UA specimen at time of admission. I do not suspect PE contributing to her increased shortness of breath and hypoxia as patient is on anticoagulation daily. Medication Reconcilliation Current Medication List: was personally reviewed by me Blood Pressure Screening Patient's blood pressure: Normal blood pressure Consults Time Called: [phone] Consulting Physician: Dr. Toth, Resident with [facility] Returned Call: [phone] I reviewed the patient's case with him. He will evaluate the patient for further management. Impression Primary Impression: Respiratory distress Additional Impressions: Hypoxia Pneumonia Dementia Elevated brain natriuretic peptide (BNP) level Obesity Critical Care I have personally spent 35 minutes of critical care time in the direct management of this patient. This includes bedside care, interpretation of diagnostic studies, and testing, discussion with consultants, patient, and family members, and other required patient management activities. This 35 minutes is in excess of all separately billable procedures. Scribe Attestation The scribe's documentation has been prepared under my direction and personally reviewed by me in its entirety. I confirm that the note above accurately reflects all work, treatment, procedures, and medical decision making performed by me. Departure Information Dispostion Being Evaluated By Hospitalist (Dr. Toth) Referrals Vicente Santos M.D. (PCP) Patient Instructions My [facility] Problem Qualifiers Additional Impressions: Pneumonia Pneumonia type: due to unspecified organism Laterality: bilateral Lung location: unspecified part of lung Qualified Codes: J18.9 - Pneumonia, unspecified organism Dementia Dementia type: unspecified type Dementia behavioral disturbance: with behavioral disturbance Qualified Codes: F03.91 - Unspecified dementia with behavioral disturbance Obesity Obesity type: unspecified obesity type Obesity classification: unspecified obesity classification Serious obesity comorbidity presence: with serious comorbidity Qualified Codes: E66.9 - Obesity, unspecified
[2017-05-03] MEDS ORDERED: MORP10SO PO ×2 (03:11)
[2017-05-03 03:32] LABS: INR 1.1 (0.9-1.1)
[2017-05-03 03:36] LABS: BASO % 0.1 %; BASO ABS # 0.01 K/uL (0-0.2); EOS % 1.2 %; EOS ABS # 0.23 K/uL (0-0.5); HEMATOCRIT 37.6 % (37-47); HEMOGLOBIN 11.2 g/dL (12.0-16.0); IG# 0.07 K/uL (0.00-0.02); LYMPH ABS # 0.56 K/uL (1.2-3.4); MEAN CELL VOLUME 102.2 fL (80-100); MEAN CORPUSCULAR HEMOGLOBIN 30.4 pg (25-34); MEAN CORPUSCULAR HGB CONC 29.8 g/dl (32-36); MEAN PLATELET VOLUME 11.1 fL (7.4-10.4); MONO % 6.5 %; MONO ABS # 1.23 K/uL (0.11-0.59); NEUT % 88.8 %; NEUT ABS # 16.68 K/uL (1.4-6.5); NUCLEATED RED BLOOD CELL ABS 0.04 K/uL (0-0); PLATELET COUNT 290 K/uL (130-400); RED CELL DISTRIBUTION WIDTH CV 19.3 % (11.5-14.5); RED CELL DISTRIBUTION WIDTH SD 70.5 fL (36.4-46.3); WHITE BLOOD COUNT 18.78 K/uL (4.8-10.8)
[2017-05-03 03:46] LABS: ALBUMIN 2.3 gm/dl (3.4-5.0); ALT/SGPT 14 U/L (12-78); AST/SGOT 19 U/L (15-37); BLOOD UREA NITROGEN 10 mg/dl (7-18); CALCIUM 9.3 mg/dl (8.5-10.1); CARBON DIOXIDE 31 mmol/L (21-32); CREATININE 0.54 mg/dl (0.60-1.20); GLUCOSE 160 mg/dl (70-99); POTASSIUM 4.7 mmol/L (3.5-5.1); SODIUM 143 mmol/L (136-145)
[2017-05-03 03:51] LABS: ALKALINE PHOSPHATASE 170 U/L (45-117); TOTAL PROTEIN 6.7 gm/dl (6.4-8.2)
[2017-05-03] MEDS ORDERED: PIPERACILLIN/TAZOBACTAM 4.5 GM/100ML D5W IV STA (04:20)
[2017-05-03] MEDS ORDERED: VANCOMYCIN 1GM/270ML NSS IV STA (04:20)
[2017-05-03] MEDS ORDERED: ACETAMINOPHEN 650 MG SUPP PR PRN (05:15)
[2017-05-03] MEDS ORDERED: GLUCAGON FOR INJ 1 MG VIAL SQ PRN ×2 (05:15→08:00)
[2017-05-03] MEDS ORDERED: DEXTROSE 50% 50 ML SYR IV PRN ×2 (05:15→08:00)
[2017-05-03] MEDS ORDERED: POLYETHYLENE (MIRALAX) 17 GM PACK PO PRN (05:15)
[2017-05-03] MEDS ORDERED: GLUCOSE 10 TABS/TUBE PO PRN ×2 (05:15→08:00)
[2017-05-03] MEDS ORDERED: ONDANSETRON INJ 2 MG/ML 2 ML VIAL IV PRN (05:15)
[2017-05-03] MEDS ORDERED: ALBUTEROL 0.083% NEBU SOLN 3 ML VIAL INH SCH (05:15)
[2017-05-03] MEDS ORDERED: GLUCOSE 40% GEL 15 GM TUBE PO PRN ×2 (05:15→08:00)
[2017-05-03] MEDS ORDERED: ACETAMINOPHEN 325 MG TAB PO PRN (05:15)
[2017-05-03] MEDS ORDERED: MAGNESIUM HYDROXIDE SUSP 30 ML UDC PO PRN (05:15)
--- NOTE | 2017-05-03 05:57 | History and Physical ---
History & Physical Date & Time of Service: May 03, 2017 at 05:33 Chief Complaint: Respiratory Difficulty Primary Care Physician: Vicente Santos M.D. History of Present Illness Source: hospital records, retirement The patient is an 87-year-old female with a complicated past medical history that presents this evening from heart side with respiratory distress. The patient was recently discharged from [facility] 3 days ago with similar symptoms. There is limited history because the patient has underlying dementia and is not responsive. According to EMS the patient was having a difficult time breathing although when given a neb treatment en route to the hospital the patient was oxygenating well on her home 3 L. In the emergency department the patient had an elevated white count, was febrile, and the appearance of a worsening chest x-ray from 3 days ago. After having a discussion with the son who is power of deputy county attorney, it was determined that the patient would be DNR/DNI but would like to treat with antibiotics and Lasix. 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 Allergies Coded Allergies: RICHARD Inhibitors (Verified Allergy, Unknown, unknown, 05/03/17) Aspirin (Verified Allergy, Unknown, unknown, 05/03/17) [place] Atenolol (Verified Allergy, Unknown, unknown; TAKES TOPROL XL W/O PROBLEM , 05/03/17) Cefprozil (Verified Allergy, Unknown, unknown, 05/03/17) TOLERATED ROCEPHIN 02/2014 FOR MULTIPLE DOSES Ciprofloxacin (Verified Allergy, Unknown, unknown, 05/03/17) Codeine (Verified Allergy, Unknown, unknown, 05/03/17) Fluticasone (Verified Allergy, Unknown, Unknown, 05/03/17) Furosemide (Verified Allergy, Unknown, ., 05/03/17) Hydrochlorothiazide (Verified Allergy, Unknown, unknown, 05/03/17) Hydrochlorothiazide w/Triamterene (Verified Allergy, Unknown, unknown, ) Ibuprofen (Verified Allergy, Unknown, unknown; HAS TAKEN ASA W/O PROBLEM, 05/03/17) Lisinopril (Verified Allergy, Unknown, unknown, 05/03/17) Meperidine (Verified Allergy, Unknown, unknown, 05/03/17) Niacinamide (Verified Allergy, Unknown, NICOTINAMIDE, 05/03/17) Penicillins (Verified Allergy, Unknown, UNKNOWN, 05/03/17) TOLERATED ROCEPHIN 02/2014 FOR MULTIPLE DOSES, TOLERATED ZOSYN 08/26/2012-08/30 Quinolones (Verified Allergy, Unknown, 05/03/17) Rofecoxib (Verified Allergy, Unknown, unknown, 05/03/17) Salmeterol (Verified Allergy, Unknown, Unknown, 05/03/17) Spironolactone (Verified Allergy, Unknown, unknown, 05/03/17) Statins (Verified Allergy, Unknown, unknown, 05/03/17) Sulfa Antibiotics (Verified Allergy, Unknown, ., 05/03/17) Home Medications Scheduled Albuterol Sulf (Proventil 0.083% 2.5MG/3ML), 2.5 MG INH Q6H Amlodipine (Norvasc), 5 MG PO DAILY Apixaban (Eliquis), 2.5 MG PO DAILY Ascorbic Acid (Ascorbic Acid), 250 MG PO DAILY Atorvastatin (Lipitor), 40 MG PO QPM Bepotastine Besilate (Bepreve), 1 DROP OPB BID Budesonide/Formoterol Fumarate (Symbicort 160/4.5 Inhaler ), 2 PUFFS INH BID Calcium Carbonate-Vitamin D (Oscal 500/200 D-3), 1 TAB PO BID Cholecalciferol (Vitamin D3), 2,000 UNITS PO DAILY Digoxin (Digoxin), 0.125 MG PO HS Fentanyl (Duragesic), 50 MCG TD CQ72HR Ferrous Sulfate (Ferrous Sulfate), 5 ML PO DAILY Gabapentin (Neurontin), 600 MG PO TID Guaifenesin (Guaifenesin), 10 ML PO TID Home O2 Therapy (Oxygen), 3 LITER NA CONTINOUS Insulin Aspart (Novolog Penfill), 6 UNITS SC AC Insulin Aspart (Novolog), 100 SC DIRECTED Insulin Glargine (Lantus Solostar), 10 UNITS SC QPM Lactobacillus (Lactobacillus), 1 TAB PO BID Latanoprost (Xalatan 0.005% Oph Anna), 1 DROPS OPB HS Levothyroxine Sodium (Levothyroxine Sodium), 25 MCG PO Q2D Magnesium Oxide (Mag-Ox), 400 MG PO BID Metoprolol Tartrate (Lopressor) (Lopressor), 25 MG PO BID Multivitamins/Minerals (Mvi With Minerals), 1 TAB PO DAILY Potassium Chloride (Potassium Chloride), 20 MEQ PO BID Ranitidine Hcl (Zantac), 150 MG PO BID Ropinirole (Requip), 0.5 MG PO DAILY Saline (Saline Nasal [place]), 2 SPRAYS A[place]LA DAILY Sertraline (Zoloft), 50 MG PO HS Umeclidinium-Vilanterol (Anoro Ellipta 62.5-25 Mcg/INH), 1 INHA PO QAM Scheduled PRN Acetaminophen (Tylenol), 1 SUPP DE Q6H PRN for temp > 101 Acetaminophen Tab (Tylenol), 650 MG PO Q6 PRN for Pain or Fever Morphine Sulfate (Morphine Sulfate), 6 MG PO Q3 hrs PRN for pain 1-10,dyspnea related Review of Systems Unable to obtain review of systems Constitutional: No fatigue Physical Exam Vital Signs Date Time Temp Pulse Resp B/P (MAP) Pulse Ox O2 Delivery O2 Flow Rate FiO2 05/03/17 02:54 96 05/03/17 02:03 94 Nasal Cannula 4.0 05/03/17 02:00 91 05/03/17 01:56 37.7 89 16 130/68 94 Nasal Cannula 4.0 General Appearance: + obese, + pertinent finding (Patient having 10 second apneic episodes and nonresponsive) Head: normocephalic, atraumatic Respiratory/Chest: + accessory muscle use, + pertinent finding (Coarse breath sounds bilaterally) Cardiovascular: + systolic murmur, + irregularly irregular Abdomen/GI: normal bowel sounds, non tender, soft Extremities/Musculoskelatal: + pedal edema Neurologic/Psych: + pertinent finding (Sedated) Diagnostics Laboratory Results Results Past 24 Hours Test 05/03/17 03:02 05/03/17 03:12 Range/Units White Blood Count 18.78 4.8-10.8 K/uL Red Blood Count 3.68 4.2-5.4 M/uL Hemoglobin 11.2 12.0-16.0 g/dL Hematocrit 37.6 37-47 % Mean Corpuscular Volume 102.2 80-100 fL Mean Corpuscular Hemoglobin 30.4 25-34 pg Mean Corpuscular Hemoglobin Concent 29.8 32-36 g/dl Platelet Count 290 130-400 K/uL Mean Platelet Volume 11.1 7.4-10.4 fL Neutrophils (%) (Auto) 88.8 % Lymphocytes (%) (Auto) 3.0 % Monocytes (%) (Auto) 6.5 % Eosinophils (%) (Auto) 1.2 % Basophils (%) (Auto) 0.1 % Neutrophils # (Auto) 16.68 1.4-6.5 K/uL Lymphocytes # (Auto) 0.56 1.2-3.4 K/uL Monocytes # (Auto) 1.23 0.11-0.59 K/uL Eosinophils # (Auto) 0.23 0-0.5 K/uL Basophils # (Auto) 0.01 0-0.2 K/uL RDW Standard Deviation 70.5 36.4-46.3 fL RDW Coefficient of Variation 19.3 11.5-14.5 % Immature Granulocyte % (Auto) 0.4 % Immature Granulocyte # (Auto) 0.07 0.00-0.02 K/uL Nucleated RBC Absolute Count (auto) 0.04 0-0 K/uL Nucleated Red Blood Cells % 0.2 % Prothrombin Time 12.0 9.0-12.0 SECONDS Prothromb Time International Ratio 1.1 0.9-1.1 Sodium Level 143 136-145 mmol/L Potassium Level 4.7 3.5-5.1 mmol/L Chloride Level 107 98-107 mmol/L Carbon Dioxide Level 31 21-32 mmol/L Anion Gap 5.0 3-11 mmol/L Blood Urea Nitrogen 10 7-18 mg/dl Creatinine 0.54 0.60-1.20 mg/dl Estimated GFR () 97.6 Estimated GFR (Non- 84.3 BUN/Creatinine Ratio 19.5 10-20 Random Glucose 160 70-99 mg/dl Calcium Level 9.3 8.5-10.1 mg/dl Total Bilirubin 1.0 0.2-1 mg/dl Aspartate Amino Transf (AST/SGOT) 19 15-37 U/L Alanine Aminotransferase (ALT/SGPT) 14 12-78 U/L Alkaline Phosphatase 170 45-117 U/L Troponin I 0.044 0-0.045 ng/ml Pro-B-Type Natriuretic Peptide 2694 0-1800 pg/ml Total Protein 6.7 6.4-8.2 gm/dl Albumin 2.3 3.4-5.0 gm/dl Globulin 4.4 2.5-4.0 gm/dl Albumin/Globulin Ratio 0.5 0.9-2 Arterial Blood pH 7.38 7.35-7.45 Arterial Blood Partial Pressure CO2 56 35-46 mmHg Arterial Blood Partial Pressure O2 69 80-95 mm/Hg Arterial Blood HCO3 32 19-24 mmol/L Arterial Blood Oxygen Saturation 92.4 90-95 % Arterial Blood Base Excess 5.7 -9-1.8 mEq/L Arterial Blood Gas Delivery 4.5 L Yifan Test POS POS Microbiology Results 05/03/17 Blood Culture, Ordered Pending 05/03/17 Blood Culture, Ordered Pending Impression Assessment and Plan Acute hypoxic respiratory failure - ARDS 2/2 worsening pneumonia (Aspiration vs HCAP) and CHF - Vancomycin IV - Zosyn IV - Duonebs - Symbicort, Albuterol - Supplemental Oxygen as needed to maintain SpO2 > 92% - Blood Cultures Failure to Thrive - Patient currently DNR/DNI - NPO at this time - Discuss plan with son regarding escalation/ de-escalation of care - At this time having significant apnea along with underlying pain from multiple fractures being treated with pain control nonoperatively due to immobility Altered mental state - Infectious process / Pain medications Atrial fibrillation/hypertension - NPO due to AMS - Holding all medications including amlodipine, apixaban, atorvastatin, bumetanide, mag oxide, metoprolol tartrate, and potassium chloride. - Change digoxin to 0.125 mg IV at bedtime. Diabetes mellitus - Currently hold Lantus due to BSG of 160 on admission and NPO status - ISS with Accucheck before meals and at bedtime Glaucoma - Contine home eye drops GERD - Change to Protonix 40 mg IV daily. DVT - Heparin Subq - SCDs - Home Eliquis on Hold Code Status - Full Resuscitation Attending addendum: I have physically seen this patient, have supervised the medical residents activities, and agree with the H&P unless as otherwise noted. Assessment and Plan: Acute respiratory failure with hypoxia/ARDS/pneumonia/CHF-- Vancomycin IV per pharmacokinetic monitoring Zosyn 3.375 mg IV every 8 hours Duonebs every 4 hours while awake and every 2 hours when necessary. Solu-Medrol 40 mg IV every 8 hours Nasal cannula oxygen titrate to keep pulse ox greater than or equal to 92% Sputum Gram stain and culture N.p.o. status. CODE STATUS-- Patient is a level 5 DO NOT RESUSCITATE/DO NOT INTUBATE. Patient overall has a very poor prognosis considering her significant comorbidities. Suggest conversation with her son regarding poor long-term outlook. Level of Care Med/Surg Resuscitation Status DO NOT RESUSCITATE VTE Prophylaxis VTE Risk Assessment Done? Y/N: Yes Risk Level: Moderate Given or contraindicated: Unfractionated heparin SQ Social Service Consult Lives in [facility] Resident Tracking Resident Involvement: Resident Care Provided Care Provided: Adult Hospital Medicine
[2017-05-03] MEDS ORDERED: IV FLUIDS COMPLETED PRN (06:00)
[2017-05-03] MEDS ORDERED: INSULIN ASPART 100 UNITS/ML 3 ML PEN SC SCH (06:58)
--- NOTE | 2017-05-03 07:02 | DIAGNOSTIC IMAGING REPORT ---
CHEST ONE VIEW PORTABLE CLINICAL HISTORY: Shortness of breath COMPARISON STUDY: 05/01/2017 FINDINGS: The heart remains enlarged. There is a left subclavian single chamber central venous pacemaker. There is slight progression in the extensive bilateral pulmonary airspace opacities. While likely representing pulmonary edema, a superimposed infectious process could appear similar. There are suspected pleural effusions.[ IMPRESSION: Slight progression in the extensive pulmonary edema pattern Electronically signed by: Konstantin Fierro M.D. 05/03/2017 7:01 AM Dictated Date/Time: 05/03/2017 6:59 AM
[2017-05-03] MEDS: ALBUT/IPRATROP 3MG/0.5MG NEB 3 ML VIAL INH SCH ×4 (07:37→19:35)
[2017-05-03] MEDS: BUDESONIDE/FORMOTEROL FUMARATE 160/4.5 60 PUFFS/INHALER INH SCH ×2 (08:45→20:50)
[2017-05-03] MEDS ORDERED: VANCOMYCIN CONSULT ACTIVE PRN (09:00)
[2017-05-03] MEDS ORDERED: PIPERACILL/TAZOBAC CONSULT ACTIVE PRN (09:00)
--- NOTE | 2017-05-03 09:09 | Progress Note ---
Progress Note Date of Service May 03, 2017. (Melo Doyle MD) Progress Note Patient admitted this morning. Previous admission was deemed for comfort care and DNR and discharged to [facility]. She then returned to the ER apparently as a full code with congestive heart failure. Given previous discussions with her power of civil rights attorney she was discharged after medical consult from the ER for comfort care. She returns on this admission she does have an elevated WBC suggestive of pneumonia. CXR appears worsening pulmonary edema. I discuss with the ER physician who spoke to her son and he wishes her to have antibiotics and lasix if needed. She is DNR/DNI but BiPAP was not discussed. This morning she is alert but not in any distress, non verbal, shakes her head to pain. Examination is consistent with mitral regurgitation in addition to her known severe aortic stenosis, coarse crackles b/l, very dry mucus membranes, respiratory rate 10. I tried calling her son Hector but not answer. Given previous plan to actively treat as infection and heart failure we will get an echo to assess degree of mitral regurgitation and LVEF, place hamilton catheter for I&Os, continue vanc and zosyn for pneumonia and re-introduce her tablets as she is able. She can be risk fed as per nursing but as per previous evals she is a large aspiration risk. Unfortunately I believe lasix is likely to dry her out significantly and may cause more distress since right now her breathing is non-labored but slow. We will continue to contact her power of civil rights attorney for goals of care. (Melo Doyle MD) Resident Physician Supervision Note: I interviewed and examined the patient. Discussed with Dr. Doyle and agree with findings and plan as documented in the note. Any exceptions or clarifications are listed here: None Documented By: Roberto Urrutia seen in f/u from early AM admission. breathing unlabored, lungs diffusely coarse hypoxia appearing multifactorial but stabilizing - agree w dr doyle's assessment that clinically pneumonia appears to be a bigger player and maintaining perfusion right now precludes using lasix due to risk of dropping pressures/reducing perfusion status. continue to assess/reassess as her situation progresses. otherwise as above (Roberto Urrutia, D.O.)
[2017-05-03] MEDS: VANCOMYCIN INJ 1,250 MG in SODIUM CHLORIDE 0.9% 250ML 250 ML IV SCH (10:34)
[2017-05-03] MEDS ORDERED: PANTOprazole INJ 40 MG in SYRINGE 0 ML IV SCH ×2 (11:00)
[2017-05-03] MEDS: PIPERACILL/TAZOBAC IV 3.375 GM in DEXTROSE 5% 100ML 100 ML IV SCH ×2 (12:45→20:48)
[2017-05-03] MEDS: INSULIN ASPART 100 UNITS/ML 3 ML PEN SC SCH ×3 (12:52→20:54)
[2017-05-03] MEDS ORDERED: HEPARIN SOD 5000 UNIT/0.5 ML CARP SQ SCH (14:00)
--- NOTE | 2017-05-03 14:28 | Pharmacy Progress Note ---
Pharmacy Abx Dose Short Note Date of Service May 03, 2017. Assessment & Plan Assessment 87 year old female admitted 05/03/17. Pharmacy consulted to dose Vancomycin and Zosyn for treatment of HCAP. Day # 1 of antimicrobial therapy. Pt was recently discharged after receiving both Vancomycin and aztreonam from to 04/27. Blood cultures pending. Renal function at baseline. Vancomycin dosing based on previous admission. Pt is DNR/DNI, however family would like antibiotics for her. Plan Vancomycin * Pt received 1 gm in the ER * Ordered a maintenance dose of 1250 mg (13.9 mg/kg) IV every 14 hours * Goal trough level for HCAP : 15 to 20 mcg/mL * Trough level ordered for: 05/04 @1330 Zosyn * Pt received 4.5 gm x 1 in the ER then * 3.375 gm IV q 8 hours Pharmacy will continue to follow and will adjust dose/frequency as necessary. Thank you.
[2017-05-03] MEDS: CHECK FENTANYL PATCH PLACEMENT SCH (15:47)
[2017-05-03] MEDS: MoRPHine SULFATE 2 MG/ML CARP IV PRN (15:53)
[2017-05-03] MEDS ORDERED: DIGOXIN IV 125 MCG in SYRINGE 9.5 ML IV SCH (16:00)
[2017-05-03] MEDS: SERTRALINE HCL 50 MG TAB PO SCH (20:51)
[2017-05-03] MEDS: RANITIDINE HCL 150 MG TAB PO SCH (20:51)
[2017-05-03] MEDS: GABAPENTIN 600 MG TAB PO SCH (20:51)
[2017-05-03] MEDS: LATANOPROST 0.005% OP SOLN 2.5 ML BTL OPB SCH (20:51)
[2017-05-03] MEDS: METOPROLOL TARTRATE 25 MG TAB PO SCH (20:52)
[2017-05-04] VITALS (10 sets, daily range): BP systolic 111–148; BP diastolic 56–68; PULSE 60–81; TEMP 36.3–36.7; O2SAT 96–100
[2017-05-04] MEDS: CHECK FENTANYL PATCH PLACEMENT SCH ×3 (00:17→16:25)
[2017-05-04] MEDS: VANCOMYCIN INJ 1,250 MG in SODIUM CHLORIDE 0.9% 250ML 250 ML IV SCH (00:17)
[2017-05-04] MEDS: PIPERACILL/TAZOBAC IV 3.375 GM in DEXTROSE 5% 100ML 100 ML IV SCH ×2 (04:08→12:30)
[2017-05-04 06:40] LABS: BASO % 0.1 %; BASO ABS # 0.01 K/uL (0-0.2); EOS % 2.6 %; EOS ABS # 0.26 K/uL (0-0.5); HEMATOCRIT 33.7 % (37-47); HEMOGLOBIN 9.5 g/dL (12.0-16.0); IG# 0.02 K/uL (0.00-0.02); LYMPH % 8.9 %; LYMPH ABS # 0.89 K/uL (1.2-3.4); MEAN CELL VOLUME 103.7 fL (80-100); MEAN CORPUSCULAR HEMOGLOBIN 29.2 pg (25-34); MEAN CORPUSCULAR HGB CONC 28.2 g/dl (32-36); MEAN PLATELET VOLUME 11.1 fL (7.4-10.4); MONO % 6.1 %; MONO ABS # 0.61 K/uL (0.11-0.59); NEUT % 82.1 %; NEUT ABS # 8.21 K/uL (1.4-6.5); PLATELET COUNT 248 K/uL (130-400); RED CELL DISTRIBUTION WIDTH CV 19.1 % (11.5-14.5); RED CELL DISTRIBUTION WIDTH SD 70.9 fL (36.4-46.3)
[2017-05-04 07:08] LABS: CALCIUM 8.6 mg/dl (8.5-10.1); CREATININE 0.55 mg/dl (0.60-1.20); POTASSIUM 4.3 mmol/L (3.5-5.1)
[2017-05-04] MEDS: ALBUT/IPRATROP 3MG/0.5MG NEB 3 ML VIAL INH SCH ×4 (07:11→19:01)
[2017-05-04] MEDS: BUDESONIDE/FORMOTEROL FUMARATE 160/4.5 60 PUFFS/INHALER INH SCH ×2 (07:39→20:55)
[2017-05-04] MEDS: METOPROLOL TARTRATE 25 MG TAB PO SCH ×2 (07:40→22:16)
[2017-05-04] MEDS: GABAPENTIN 600 MG TAB PO SCH ×3 (07:41→22:11)
[2017-05-04] MEDS: RANITIDINE HCL 150 MG TAB PO SCH ×2 (07:41→22:15)
[2017-05-04] MEDS: AMLODIPINE BESYLATE 5 MG TAB PO SCH (07:43)
[2017-05-04] MEDS ORDERED: MAGNESIUM OXIDE 400 MG TAB PO SCH (08:00)
[2017-05-04] MEDS ORDERED: APIXABAN 2.5 MG TAB PO SCH (08:00)
[2017-05-04] MEDS: MoRPHine SULFATE 2 MG/ML CARP IV PRN (08:04)
[2017-05-04] MEDS ORDERED: FENTANYL PATCH REMOVE & WASTE SCH ×2 (08:59→11:59)
[2017-05-04] MEDS ORDERED: FENTANYL 50 MCG/HR TDSY TD SCH (09:00)
[2017-05-04] MEDS: INSULIN ASPART 100 UNITS/ML 3 ML PEN SC SCH ×4 (09:18→22:13)
--- NOTE | 2017-05-04 09:42 | Palliative Care Consultation ---
Consultation Date of Consultation: May 04, 2017. Requesting Physician: Dr. Doyle Attending Physician: Dr. Rosales Reason for Consultation: Goals of care History of Present Illness This 87 year old female patient with PMH dementia, bed-bound status, right leg amputation, COPD, CHF, and many others listed below, who is well-known to the palliative service, was admitted to the hospital yesterday with pneumonia. Patient was just discharged from the hospital on April 28, after an eight day stay with fractured right humerus and right hip. She had sustained a fall at the [facility] and subsequent fractures, but given her multiple comorbidities , advanced age, and surgical risk, it was decided to not pursue surgical intervention. Patient had a complicated stay due to respiratory failure and electrolyte imbalances as well as other problems. Palliative care was involved during that admission-- patient's son/MARELY Young stated the goal was for comfort and he would be agreeable to hospice care, but his sister Jacinda Shaw was not in agreement. During that admission, patient was nonverbal and unable to participate in conversation. I tried to reach Jacinda at Hector' request at least 10 times. I then tried to get back in touch with Hector but was unsuccessful. Patient was eventually discharged back to [facility] without a plan for comfort measures only/hospice, so she is now back. I met with the patient this morning in room 410. She is awake and oriented to person, place and somewhat even. She has some forgetfulness and is slow to answer questions, but she is answering appropriately. Patient stated, "They should all know I'm too sick for this, to be in the hospital." Patient also states that her right arm is severely hurting her. I asked the patient what her goal was with medical treatment and she stated, "to be comfortable." I asked if she would like us to stop the IV abx, lab draws, and other treatment unrelated to comfort and she said "yes." I reiterated that if we did so, the goal would be simply for pain management and comfort until she and she again stated that's what she wanted. She gave me permission to call her children, Hector and Jacinda. I called both of them and left messages, awaiting call back. Past Medical/Surgical History Medical History: Afib Cellulitis CKD COPD CDM Heart disease HLD Htn MRSA PVD Obesity Right BKA Colonoscopy Surgical History: Right leg amputation Social History Smoking Status: Unknown if Ever Smoked History of Alcohol Use: No Drug Use: none Marital Status: Housing Status: jail Occupation Status: retired two sons, two daughters. Review of Systems Constitutional: + weakness ENT: No trouble swallowing Respiratory: No cough, No shortness of breath Cardiac: No chest pain Abdomen: No pain, No nausea, No vomiting Musculoskeletal: + problem reported (right arm pain) Female : No problem reported Psychiatric: No anxiety Allergies Coded Allergies: RICHARD Inhibitors (Verified Allergy, Unknown, unknown, 05/03/17) Aspirin (Verified Allergy, Unknown, unknown, 05/03/17) [place] Atenolol (Verified Allergy, Unknown, unknown; TAKES TOPROL XL W/O PROBLEM , 05/03/17) Cefprozil (Verified Allergy, Unknown, unknown, 05/03/17) TOLERATED ROCEPHIN 02/2014 FOR MULTIPLE DOSES Ciprofloxacin (Verified Allergy, Unknown, unknown, 05/03/17) Codeine (Verified Allergy, Unknown, unknown, 05/03/17) Fluticasone (Verified Allergy, Unknown, Unknown, 05/03/17) Furosemide (Verified Allergy, Unknown, ., 05/03/17) Hydrochlorothiazide (Verified Allergy, Unknown, unknown, 05/03/17) Hydrochlorothiazide w/Triamterene (Verified Allergy, Unknown, unknown, ) Ibuprofen (Verified Allergy, Unknown, unknown; HAS TAKEN ASA W/O PROBLEM, 05/03/17) Lisinopril (Verified Allergy, Unknown, unknown, 05/03/17) Meperidine (Verified Allergy, Unknown, unknown, 05/03/17) Niacinamide (Verified Allergy, Unknown, NICOTINAMIDE, 05/03/17) Penicillins (Verified Allergy, Unknown, UNKNOWN, 05/03/17) TOLERATED ROCEPHIN 02/2014 FOR MULTIPLE DOSES, TOLERATED ZOSYN 08/26/2012-08/30 Quinolones (Verified Allergy, Unknown, 05/03/17) Rofecoxib (Verified Allergy, Unknown, unknown, 05/03/17) Salmeterol (Verified Allergy, Unknown, Unknown, 05/03/17) Spironolactone (Verified Allergy, Unknown, unknown, 05/03/17) Statins (Verified Allergy, Unknown, unknown, 05/03/17) Sulfa Antibiotics (Verified Allergy, Unknown, ., 05/03/17) Medications Current Inpatient Medications Medications (Trade) Dose Ordered Sig/Tariq Route Start Time Stop Time Status Last Admin Dose Admin Acetaminophen (Tylenol Tab) 650 mg Q4H PRN PO 05/03/17 05:15 06/02/17 05:14 Magnesium Hydroxide (Milk Of Magnesia Susp) 30 ml Q6H PRN PO 05/03/17 05:15 06/02/17 05:14 Polyethylene (Miralax Powder Packet) 17 gm DAILY PRN PO 05/03/17 05:15 06/02/17 05:14 Ondansetron HCl (Zofran Inj) 4 mg Q6H PRN IV 05/03/17 05:15 06/02/17 05:14 Glucose (Glucose 40% Gel) 15-30 GRAMS 15 GRAMS... UD PRN PO 05/03/17 05:15 06/02/17 05:14 Glucose (Glucose Chew Tab) 4-8 Tablets 4 Tabl... UD PRN PO 05/03/17 05:15 06/02/17 05:14 Dextrose (Dextrose 50% 50ML Syringe) 25-50ML OF 50% DW IV FOR... UD PRN IV 05/03/17 05:15 06/02/17 05:14 Glucagon (Glucagon Inj) 1 mg UD PRN SQ 05/03/17 05:15 06/02/17 05:14 Acetaminophen (Tylenol Supp) 650 mg Q6H PRN MN 05/03/17 05:15 06/02/17 05:14 Budesonide/ Formoterol Fumarate (Symbicort 160/ 4.5 Inh) 2 puffs BID INH 05/03/17 08:00 06/02/17 08:59 05/04/17 07:39 2 PUFFS Fentanyl (Duragesic Patch) 50 mcg Q72H TD 05/04/17 09:00 05/18/17 08:59 Latanoprost (Xalatan Oph Soln) 1 drops HS OPB 05/03/17 21:00 06/02/17 20:59 05/03/17 20:51 1 DROPS Morphine Sulfate (MoRPHine SULFATE INJ) 2 mg Q2H PRN IV 05/03/17 05:15 05/17/17 05:14 05/04/17 08:04 2 MG Albuterol/ Ipratropium (Duoneb) 3 ml QIDR INH 05/03/17 08:00 06/02/17 07:59 05/04/17 07:11 3 ML Miscellaneous (Iv Fluids Completed) 1 ea PRN PRN N/A 05/03/17 06:00 05/03/18 05:59 Insulin Aspart (novoLOG ASPART) SLIDING SCALE If C... ACHS SC 05/03/17 11:00 06/02/17 10:59 05/04/17 09:18 3 UNITS Vancomycin HCl 1250 mg/Sodium Chloride 275 ml @ 125 mls/hr Q14H IV 05/03/17 10:00 05/10/17 09:59 05/04/17 00:17 125 MLS/HR Miscellaneous Information (Consult) 1 ea UD PRN N/A 05/03/17 09:00 06/02/17 08:59 Piperacillin Sod/ Tazobactam Sod 3.375 gm/Dextrose 115 ml @ 28.75 mls/ hr Q8H IV 05/03/17 12:00 05/10/17 11:59 05/04/17 04:08 28.75 MLS/HR Miscellaneous Information (Consult) 1 ea UD PRN N/A 05/03/17 09:00 06/02/17 08:59 Miscellaneous (Fentanyl Patch Remove & Waste) 1 ea Q3D@0859 N/A 05/04/17 08:59 06/03/17 08:58 Miscellaneous Information (Check Fentanyl Patch Placement) 1 ea QS N/A 05/03/17 16:00 06/02/17 15:59 05/04/17 07:39 1 EA Amlodipine Besylate (Norvasc Tab) 5 mg DAILY PO 05/04/17 08:00 06/03/17 07:59 05/04/17 07:43 5 MG Apixaban (Eliquis Tab) 2.5 mg BID PO 05/04/17 08:00 06/03/17 07:59 05/04/17 07:41 2.5 MG Digoxin (Lanoxin Tab) 0.125 mg DAILY@1600 PO 05/04/17 16:00 06/03/17 15:59 Gabapentin (Neurontin Tab) 600 mg TID PO 05/03/17 20:00 06/02/17 19:59 05/04/17 07:41 600 MG Magnesium Oxide (Mag-Ox Tab) 400 mg DAILY PO 05/04/17 08:00 06/03/17 07:59 05/04/17 07:40 400 MG Metoprolol Tartrate (Lopressor Tab) 25 mg BID PO 05/03/17 20:00 06/02/17 19:59 05/04/17 07:40 25 MG Ranitidine HCl (zANTac TAB) 150 mg BID PO 05/03/17 20:00 06/02/17 19:59 05/04/17 07:41 150 MG Ropinirole HCl (Requip Tab) 0.5 mg DAILY@2000 PO 05/04/17 20:00 06/03/17 19:59 Sertraline HCl (Zoloft Tab) 50 mg HS PO 05/03/17 21:00 06/02/17 20:59 05/03/17 20:51 50 MG Physical Exam Date Time Temp Pulse Resp B/P (MAP) Pulse Ox O2 Delivery O2 Flow Rate FiO2 05/04/17 08:07 36.7 65 14 148/68 (94) 99 Nasal Cannula 3.0 05/04/17 07:12 69 16 99 Nasal Cannula 3.0 05/04/17 00:45 96 Nasal Cannula 3.0 05/03/17 23:13 36.8 60 16 108/71 (83) 100 Nasal Cannula 3.0 05/03/17 19:35 79 16 97 Nasal Cannula 3.0 05/03/17 18:50 75 12 137/77 (97) 100 Nasal Cannula 3.0 05/03/17 16:25 75 05/03/17 16:02 36.8 74 16 122/66 (84) 98 Nasal Cannula 3.0 05/03/17 16:00 97 Nasal Cannula 3.0 05/03/17 15:24 77 14 97 Nasal Cannula 3.0 General Appearance: + obese, + pertinent finding (chronically ill and frail appearing) ENT: hearing grossly normal Neck: supple, no JVD Respiratory: no respiratory distress, no accessory muscle use, + decreased breath sounds Cardiovascular: + normal peripheral pulses, + pertinent finding (palpable left pedal pulse, right leg amputated) Abdomen: normal bowel sounds, non tender, soft (obese abdomen) Skin: + pallor Laboratory Results Last 24 Hours Test 05/03/17 11:57 05/03/17 12:23 05/03/17 16:58 05/03/17 20:16 Bedside Glucose 172 mg/dl 187 mg/dl 174 mg/dl Troponin I 0.051 ng/ml Test 05/04/17 06:03 05/04/17 07:53 White Blood Count 10.00 K/uL Red Blood Count 3.25 M/uL Hemoglobin 9.5 g/dL Hematocrit 33.7 % Mean Corpuscular Volume 103.7 fL Mean Corpuscular Hemoglobin 29.2 pg Mean Corpuscular Hemoglobin Concent 28.2 g/dl Platelet Count 248 K/uL Mean Platelet Volume 11.1 fL Neutrophils (%) (Auto) 82.1 % Lymphocytes (%) (Auto) 8.9 % Monocytes (%) (Auto) 6.1 % Eosinophils (%) (Auto) 2.6 % Basophils (%) (Auto) 0.1 % Neutrophils # (Auto) 8.21 K/uL Lymphocytes # (Auto) 0.89 K/uL Monocytes # (Auto) 0.61 K/uL Eosinophils # (Auto) 0.26 K/uL Basophils # (Auto) 0.01 K/uL RDW Standard Deviation 70.9 fL RDW Coefficient of Variation 19.1 % Immature Granulocyte % (Auto) 0.2 % Immature Granulocyte # (Auto) 0.02 K/uL Sodium Level 144 mmol/L Potassium Level 4.3 mmol/L Chloride Level 108 mmol/L Carbon Dioxide Level 32 mmol/L Anion Gap 4.0 mmol/L Blood Urea Nitrogen 10 mg/dl Creatinine 0.55 mg/dl Est Creatinine Clear Calc Drug Dose 76.0 ml/min Estimated GFR () 97.1 Estimated GFR (Non- 83.7 BUN/Creatinine Ratio 18.9 Random Glucose 147 mg/dl Calcium Level 8.6 mg/dl Bedside Glucose 141 mg/dl Assessment & Plan Palliative Performance Scale: 20 % Problem list: Pain, right arm s/p fracture Pneumonia Bed-bound/severely deconditioned Pneumonia, healthcare associated, bilateral Hx recent Right humeral and hip fractures Hx CHF, COPD Goals of care Palliative care recs: -Patient is level 5/DNR. -She is currently being treated for the pneumonia. Patient states she would like to stop all treatment unrelated to comfort and pursue "comfort measures only." She gave me permission to call her children and discuss this with them. I left messages with Hector and Jacinda. -If [employer] is initiated, would recommend going back to the [facility] with hospice care. -Would increase fentanyl patch to 75mcg/hr TD Q72h. -Discontinue IV morphine and start Roxanol 5mg PO Q2h PRN pain or SOB. -Further recommendations to follow. Thank you kindly for this consult. I will follow as needed. Total time spent 50 minutes. Greater than 50% of time with the patient was spent on counseling and coordinating care.
[2017-05-04] MEDS ORDERED: MoRPHine SULFATE 5 MG/0.25 ML UDP PO PRN (10:30)
--- NOTE | 2017-05-04 10:39 | Clinical Documentation Query ---
QUERY 1 OF [address] LUCAS, In your clinical opinion is this patient being managed for: ( x ) Metabolic encephalopathy ( ) Not Agree ( ) Other explanation of clinical findings (Please Explain) ( ) Unable to determine (Please Define) ( ) Need to Discuss The medical record reflects the following clinical findings, treatment, and risk factors. Clinical Indicators: 87 yo female presenting with acute respiratory failure and pneumonia. H/P describes pt as being nonresponsive and indicates pt's altered mental status due to infectious process and pain meds. WBC 18.78, O2 sats in 60's at SNF but improved to 90's with NRB and neb tx. Treatment: O2 support, IV vancomcyin, IV zosyn, nebs, blood cx, Risk Factors: hypoxia, pneumonia, acute respiratory failure QUERY 2 OF 2 In your clinical opinion is this patient being managed for: (x ) Acute on chronic diastolic CHF ( ) Chronic diastolic CHF ( ) Not Agree ( ) Other explanation of clinical findings (Please Explain) ( ) Unable to determine (Please Define) ( ) Need to Discuss The medical record reflects the following clinical findings, treatment, and risk factors. Clinical Indicators: H/P indicates pt with CHF. ECHO from 2017 with EF 65-70%. BNP 2694. CXR indicates likely pulmonary edema and pt with coarse crackles bilaterally. Treatment: ECHO, hamilton for accurate I/O, unable to use lasix presently due to needing to maintain BP and perfusion status, IV digoxin Risk Factors: A fib, CKD, COPD, HTN, DM Please clarify and document your clinical opinion in the progress notes and discharge summary. Terms such as "probable", "suspected", "likely", "questionable", "possible", or "still to be ruled out" are acceptable. IF IN AGREEMENT, YOU MUST DOCUMENT ABOVE DIAGNOSTIC STATEMENT IN DAILY PROGRESS NOTES AND DISCHARGE SUMMARY. This document is not part of the patient's record. Thank You, Alexa Cavanaugh, RN [phone]
--- NOTE | 2017-05-04 10:42 | Clinical Documentation Query ---
QUERY 1 OF [address] JEAN, In your clinical opinion is this patient being managed for: ( ) Metabolic encephalopathy ( ) Not Agree ( ) Other explanation of clinical findings (Please Explain) ( ) Unable to determine (Please Define) ( ) Need to Discuss The medical record reflects the following clinical findings, treatment, and risk factors. Clinical Indicators: 87 yo female presenting with acute respiratory failure and pneumonia. H/P describes pt as being nonresponsive and indicates pt's altered mental status due to infectious process and pain meds. WBC 18.78, O2 sats in 60's at SNF but improved to 90's with NRB and neb tx. Treatment: O2 support, IV vancomcyin, IV zosyn, nebs, blood cx, Risk Factors: hypoxia, pneumonia, acute respiratory failure QUERY 2 OF 2 In your clinical opinion is this patient being managed for: ( ) Acute on chronic diastolic CHF ( ) Chronic diastolic CHF ( ) Not Agree ( ) Other explanation of clinical findings (Please Explain) ( ) Unable to determine (Please Define) ( ) Need to Discuss The medical record reflects the following clinical findings, treatment, and risk factors. Clinical Indicators: H/P indicates pt with CHF. ECHO from 2017 with EF 65-70%. BNP 2694. CXR indicates likely pulmonary edema and pt with coarse crackles bilaterally. Treatment: ECHO, hamilton for accurate I/O, unable to use lasix presently due to needing to maintain BP and perfusion status, IV digoxin Risk Factors: A fib, CKD, COPD, HTN, DM Please clarify and document your clinical opinion in the progress notes and discharge summary. Terms such as "probable", "suspected", "likely", "questionable", "possible", or "still to be ruled out" are acceptable. IF IN AGREEMENT, YOU MUST DOCUMENT ABOVE DIAGNOSTIC STATEMENT IN DAILY PROGRESS NOTES AND DISCHARGE SUMMARY. This document is not part of the patient's record. Thank You, Alexa Cavanaugh, RN [phone]
[2017-05-04] MEDS ORDERED: FENTANYL 75 MCG/HR TDSY TD SCH (12:00)
--- NOTE | 2017-05-04 12:05 | ECHOCARDIOGRAM REPORT ---
*NOTICE TO RECEIVING [employer] This information is strictly Confidential and protected under [place] law. [place] law prohibits you from making any further disclosure of this information unless further disclosure is expressly permitted by the written consent of the person to whom it pertains or is authorized by law. A general authorization for the release of medical or other information is not sufficient for this purpose. Hospital accepts no responsibility if the information is made available to any other person, INCLUDING THE PATIENT. Interpretation Summary * Echocardiogram Report * Name: ASTON PRETTY Study Date: 05/03/2017 01:12 PM BP: 135/56 mmHg * Patient Location: .4E\S\E410\S\1 HR: 83 * : 1930 (M/d/yyy) Gender: Female Height: 64 in * Age: 87 yrs Ethnicity: CA Weight: 198 lb * Ordering Physician: Melo Doyle * Referring Physician: Sylvester Victoria * Performed By: Nick Franks RDCS * * Reason For Study: Murmurs * BSA: 1.9 m2 * -- Conclusions -- * There is mild concentric left ventricular hypertrophy. * Left ventricular systolic function is normal. * The left atrium is moderately dilated. * The right atrium is moderately dilated. * Moderate to severe valvular aortic stenosis. * There is severe mitral annular calcification. * There is moderate mitral regurgitation. * Right ventricular systolic pressure is elevated at >60mmHg. * The inferior vena cava is mildly dilated. * There is mild mitral stenosis. * Compared to an echocardiogram from 05/2016, there is little difference. Procedure Details * A complete two-dimensional transthoracic echocardiogram was performed (2D, M-mode, Doppler and color flow Doppler). * The study was technically adequate. Left Ventricle * The left ventricle is normal in size. * There is mild concentric left ventricular hypertrophy. * Ejection Fraction = 65-70%. * Left ventricular systolic function is normal. * The left ventricular wall motion is normal. Right Ventricle * The right ventricle is normal in size and function. Atria * The left atrium is moderately dilated. * The right atrium is moderately dilated. * There is a catheter/pacemaker lead seen in the right atrium. Mitral Valve * There is severe mitral annular calcification. * There is mild mitral stenosis. * There is moderate mitral regurgitation. Tricuspid Valve * The tricuspid valve is not well visualized, but is grossly normal. * There is mild tricuspid regurgitation. * Right ventricular systolic pressure is elevated at >60mmHg. Aortic Valve * The aortic valve is heavily calcified * Moderate to severe valvular aortic stenosis. * Trace aortic regurgitation. Pericardium/Pleural * There is no pericardial effusion. Great Vessels * The inferior vena cava is mildly dilated. MMode 2D Measurements and Calculations IVSd 1.3 cm IVSs 1.9 cm LVIDd 4.0 cm LVIDs 2.8 cm LVPWd 1.3 cm LVPWs 1.9 cm IVS/LVPW 1.0 FS 30.0 % EDV(Teich) 70.2 ml ESV(Teich) 29.7 ml EF(Teich) 57.8 % EDV(cubed) 64.3 ml ESV(cubed) 22.0 ml EF(cubed) 65.7 % % IVS thick 44.2 % % LVPW thick 45.7 % LV mass(C)d 188.6 grams LV mass(C)dI 96.9 grams/m\S\2 LV mass(C)s 220.9 grams LV mass(C)sI 113.4 grams/m\S\2 SV(Teich) 40.6 ml SI(Teich) 20.8 ml/m\S\2 SV(cubed) 42.2 ml SI(cubed) 21.7 ml/m\S\2 EPSS 1.4 cm Ao root diam 3.2 cm Ao root area 8.1 cm\S\2 ACS 0.59 cm LA dimension 4.6 cm asc Aorta Diam 3.3 cm LA/Ao 1.4 LVOT diam 2.0 cm LVOT area 3.1 cm\S\2 LVAd ap4 15.3 cm\S\2 LVLd ap4 6.9 cm EDV(MOD-sp4) 29.3 ml EDV(sp4-el) 28.5 ml LVAs ap4 7.6 cm\S\2 LVLs ap4 6.4 cm ESV(MOD-sp4) 9.3 ml ESV(sp4-el) 7.7 ml EF(MOD-sp4) 68.3 % EF(sp4-el) 73.1 % LVAd ap2 26.2 cm\S\2 LVLd ap2 7.8 cm EDV(MOD-sp2) 68.4 ml EDV(sp2-el) 75.1 ml LVAs ap2 13.0 cm\S\2 LVLs ap2 7.1 cm ESV(MOD-sp2) 20.6 ml ESV(sp2-el) 20.3 ml EF(MOD-sp2) 69.9 % EF(sp2-el) 73.0 % LVLd %diff 10.6 % EDV(MOD-bp) 45.9 ml LVLs %diff 9.7 % ESV(MOD-bp) 14.1 ml EF(MOD-bp) 69.2 % SV(MOD-sp4) 20.1 ml SI(MOD-sp4) 10.3 ml/m\S\2 SV(MOD-sp2) 47.9 ml SI(MOD-sp2) 24.6 ml/m\S\2 SV(MOD-bp) 31.8 ml SI(MOD-bp) 16.3 ml/m\S\2 SV(sp4-el) 20.8 ml SI(sp4-el) 10.7 ml/m\S\2 SV(sp2-el) 54.8 ml SI(sp2-el) 28.1 ml/m\S\2 Doppler Measurements and Calculations MV E max yan 168.3 cm/sec MV dec time 0.25 sec Ao V2 max 359.2 cm/sec Ao max PG 51.6 mmHg Ao max PG (full) 49.1 mmHg Ao V2 mean 242.3 cm/sec Ao mean PG 27.1 mmHg Ao mean PG (full) 25.6 mmHg Ao V2 VTI 74.3 cm JIMMY(I,A) 0.77 cm\S\2 JIMMY(I,D) 0.77 cm\S\2 JIMMY(V,A) 0.70 cm\S\2 JIMMY(V,D) 0.70 cm\S\2 LV V1 max PG 2.6 mmHg LV V1 mean PG 1.5 mmHg LV V1 max 80.0 cm/sec LV V1 mean 56.1 cm/sec LV V1 VTI 18.2 cm SV(Ao) 604.6 ml SI(Ao) 310.4 ml/m\S\2 SV(LVOT) 56.9 ml SI(LVOT) 29.2 ml/m\S\2 PA V2 max 270.5 cm/sec PA max PG 29.3 mmHg TR max yan 412.0 cm/sec
[2017-05-04] MEDS ORDERED: VANCOMYCIN TROUGH ONE (13:30)
--- NOTE | 2017-05-04 15:38 | Family Medicine Progress Note ---
Progress Note Date of Service May 04, 2017. Subjective Pt evaluation today including: conversation w/ patient, physical exam, chart review, lab review, review of inpatient medication list Pain: Right hip pain and left arm pain reported PO Intake: Tolerating PO intake Voiding: hamilton catheter in place Ms. Powell reports she is having pain, particularly in her right hip and right arm. She denies chest pain, shortness of breath, n/v, fever or chills. She states her pain is her biggest complaint. Constitutional: No fever, No chills Respiratory: No shortness of breath Cardiovascular: No chest pain Abdomen: + pain, No nausea, No vomiting Musculoskeletal: + joint pain (right hip and right arm) All Other Systems: Reviewed and Negative Medications Current Inpatient Medications Medications (Trade) Dose Ordered Sig/Tariq Route Start Time Stop Time Status Last Admin Dose Admin Acetaminophen (Tylenol Tab) 650 mg Q4H PRN PO 05/03/17 05:15 06/02/17 05:14 Magnesium Hydroxide (Milk Of Magnesia Susp) 30 ml Q6H PRN PO 05/03/17 05:15 06/02/17 05:14 Polyethylene (Miralax Powder Packet) 17 gm DAILY PRN PO 05/03/17 05:15 06/02/17 05:14 Ondansetron HCl (Zofran Inj) 4 mg Q6H PRN IV 05/03/17 05:15 06/02/17 05:14 Glucose (Glucose 40% Gel) 15-30 GRAMS 15 GRAMS... UD PRN PO 05/03/17 05:15 06/02/17 05:14 Glucose (Glucose Chew Tab) 4-8 Tablets 4 Tabl... UD PRN PO 05/03/17 05:15 06/02/17 05:14 Dextrose (Dextrose 50% 50ML Syringe) 25-50ML OF 50% DW IV FOR... UD PRN IV 05/03/17 05:15 06/02/17 05:14 Glucagon (Glucagon Inj) 1 mg UD PRN SQ 05/03/17 05:15 06/02/17 05:14 Acetaminophen (Tylenol Supp) 650 mg Q6H PRN NC 05/03/17 05:15 06/02/17 05:14 Budesonide/ Formoterol Fumarate (Symbicort 160/ 4.5 Inh) 2 puffs BID INH 05/03/17 08:00 06/02/17 08:59 05/04/17 07:39 2 PUFFS Latanoprost (Xalatan Oph Soln) 1 drops HS OPB 05/03/17 21:00 06/02/17 20:59 05/03/17 20:51 1 DROPS Albuterol/ Ipratropium (Duoneb) 3 ml QIDR INH 05/03/17 08:00 06/02/17 07:59 05/04/17 14:37 3 ML Miscellaneous (Iv Fluids Completed) 1 ea PRN PRN N/A 05/03/17 06:00 05/03/18 05:59 Insulin Aspart (novoLOG ASPART) SLIDING SCALE If C... ACHS SC 05/03/17 11:00 06/02/17 10:59 05/04/17 12:50 7 UNITS Miscellaneous Information (Check Fentanyl Patch Placement) 1 ea QS N/A 05/03/17 16:00 06/02/17 15:59 05/04/17 07:39 1 EA Amlodipine Besylate (Norvasc Tab) 5 mg DAILY PO 05/04/17 08:00 06/03/17 07:59 05/04/17 07:43 5 MG Apixaban (Eliquis Tab) 2.5 mg BID PO 05/04/17 08:00 06/03/17 07:59 05/04/17 07:41 2.5 MG Digoxin (Lanoxin Tab) 0.125 mg DAILY@1600 PO 05/04/17 16:00 06/03/17 15:59 Gabapentin (Neurontin Tab) 600 mg TID PO 05/03/17 20:00 06/02/17 19:59 05/04/17 07:41 600 MG Magnesium Oxide (Mag-Ox Tab) 400 mg DAILY PO 05/04/17 08:00 06/03/17 07:59 05/04/17 07:40 400 MG Metoprolol Tartrate (Lopressor Tab) 25 mg BID PO 05/03/17 20:00 06/02/17 19:59 05/04/17 07:40 25 MG Ranitidine HCl (zANTac TAB) 150 mg BID PO 05/03/17 20:00 06/02/17 19:59 05/04/17 07:41 150 MG Ropinirole HCl (Requip Tab) 0.5 mg DAILY@2000 PO 05/04/17 20:00 06/03/17 19:59 Sertraline HCl (Zoloft Tab) 50 mg HS PO 05/03/17 21:00 06/02/17 20:59 05/03/17 20:51 50 MG Fentanyl (Duragesic Patch) 75 mcg Q72H TD 05/04/17 12:00 05/18/17 11:59 05/04/17 12:31 75 MCG Morphine Sulfate (Roxanol Oral Soln) 5 mg Q2HWA PRN PO 05/04/17 10:30 05/18/17 10:29 Miscellaneous (Fentanyl Patch Remove & Waste) 1 ea Q3D@1159 N/A 05/04/17 11:59 06/03/17 11:58 05/04/17 12:39 1 EA Objective Vital Signs Date Time Temp Pulse Resp B/P (MAP) Pulse Ox O2 Delivery O2 Flow Rate FiO2 05/04/17 15:02 36.3 60 18 111/61 (78) 100 Nasal Cannula 3.0 05/04/17 14:37 60 16 100 Nasal Cannula 3.0 05/04/17 11:19 60 16 100 Nasal Cannula 3.0 05/04/17 10:07 99 Nasal Cannula 3.0 05/04/17 08:30 99 Nasal Cannula 3.0 05/04/17 08:07 36.7 65 14 148/68 (94) 99 Nasal Cannula 3.0 05/04/17 07:12 69 16 99 Nasal Cannula 3.0 05/04/17 00:45 96 Nasal Cannula 3.0 05/03/17 23:13 36.8 60 16 108/71 (83) 100 Nasal Cannula 3.0 05/03/17 19:35 79 16 97 Nasal Cannula 3.0 05/03/17 18:50 75 12 137/77 (97) 100 Nasal Cannula 3.0 05/03/17 16:25 75 05/03/17 16:02 36.8 74 16 122/66 (84) 98 Nasal Cannula 3.0 05/03/17 16:00 97 Nasal Cannula 3.0 Physical Exam General Appearance: WD/WN, no apparent distress Respiratory/Chest: no respiratory distress, no accessory muscle use, + decreased breath sounds Cardiovascular: regular rate, rhythm, no edema, + systolic murmur Abdomen: soft, + tenderness (tenderness throughout abdomen) Extremities: non-tender, + pertinent finding (right leg amputation) Neurologic/Psychiatric: alert, normal mood/affect Laboratory Results Last 24 Hours Test 05/03/17 16:58 05/03/17 20:16 05/04/17 06:03 05/04/17 07:53 Bedside Glucose 187 mg/dl 174 mg/dl 141 mg/dl White Blood Count 10.00 K/uL Red Blood Count 3.25 M/uL Hemoglobin 9.5 g/dL Hematocrit 33.7 % Mean Corpuscular Volume 103.7 fL Mean Corpuscular Hemoglobin 29.2 pg Mean Corpuscular Hemoglobin Concent 28.2 g/dl Platelet Count 248 K/uL Mean Platelet Volume 11.1 fL Neutrophils (%) (Auto) 82.1 % Lymphocytes (%) (Auto) 8.9 % Monocytes (%) (Auto) 6.1 % Eosinophils (%) (Auto) 2.6 % Basophils (%) (Auto) 0.1 % Neutrophils # (Auto) 8.21 K/uL Lymphocytes # (Auto) 0.89 K/uL Monocytes # (Auto) 0.61 K/uL Eosinophils # (Auto) 0.26 K/uL Basophils # (Auto) 0.01 K/uL RDW Standard Deviation 70.9 fL RDW Coefficient of Variation 19.1 % Immature Granulocyte % (Auto) 0.2 % Immature Granulocyte # (Auto) 0.02 K/uL Sodium Level 144 mmol/L Potassium Level 4.3 mmol/L Chloride Level 108 mmol/L Carbon Dioxide Level 32 mmol/L Anion Gap 4.0 mmol/L Blood Urea Nitrogen 10 mg/dl Creatinine 0.55 mg/dl Est Creatinine Clear Calc Drug Dose 76.0 ml/min Estimated GFR () 97.1 Estimated GFR (Non- 83.7 BUN/Creatinine Ratio 18.9 Random Glucose 147 mg/dl Calcium Level 8.6 mg/dl Test 05/04/17 11:54 05/04/17 13:34 Bedside Glucose 250 mg/dl Vancomycin Level Trough 18.7 mcg/ml Assessment and Plan Ms. Powell is an 87 year old female admitted for acute hypoxic respiratory failure secondary to pneumonia. She was deemed for comfort care and DNR on her previous admission, but was admitted for treatment of her pneumonia. Palliative care was consulted - thank you for the input. Lauryn discussed goals of care w/patient and POA (Hector - son) and they have elected for comfort measures only, with no IV medications, no labs, and d/cing non- essential regular medications that are not for symptom relief. Pt wishes to be discharged back to [facility] on hospice. Acute hypoxic respiratory failure - ARDS 2/2 worsening pneumonia (Aspiration vs HCAP) and CHF - d/c Vancomycin IV and Zosyn IV - discussed w/POA giving oral abx as pt is able to tolerate oral medication at this time - POA was ok with this - start augmentin 875 BID. Pt does have penicillin allergy listed but was able to tolerate zosyn without problems. Ideally would have given levaquin for pseudomonal coverage but pt has allergy to fluoroquinolones listed. - Continue Duonebs, Symbicort, Albuterol - Supplemental Oxygen as needed to maintain SpO2 > 92% - Blood cultures pending Failure to Thrive - Patient currently DNR/DNI - At this time having significant apnea along with underlying pain from multiple fractures being treated with pain control nonoperatively due to immobility - increase fentanyl from 50mcg to 75mcg for better pain control - roxanol 5mg q2h prn Atrial fibrillation/hypertension - d/c atorvastatin, bumetanide, mag oxide, apixaban - continue amlodipine, metoprolol tartrate, digoxin Diabetes mellitus - continue insulin sliding scale Glaucoma - Continue home eye drops GERD - d/c Protonix 40 mg IV daily. - continue oral zantac DVT - comfort care - no anticoagulation Code Status - DNR Disposition - d/c to [facility] on hospice tomorrow Resident Physician Supervision Note: I was present with the resident during the history and exam. I discussed the case with the resident and agree with the findings and plan as documented in the note. I also discussed the case with the palliative care team. I agree that this patient is appropriate for hospice. Documented By: Nahid Valdes Resident Tracking Resident Involvement: Resident Care Provided Care Provided: Adult Hospital Medicine
[2017-05-04] MEDS ORDERED: DIGOXIN 0.125 MG TAB PO SCH (16:00)
[2017-05-04] MEDS ORDERED: DRGTP75 TD ×2 (18:36)
[2017-05-04] MEDS ORDERED: AMOX1TAB43 PO ×2 (18:36)
[2017-05-04] MEDS ORDERED: RXNS10 PO ×2 (18:36)
--- NOTE | 2017-05-04 18:39 | Discharge Instructions ---
Discharge Instructions Date of Service May 04, 2017. Admission Reason for Admission: HCAP Discharge Discharge Diagnosis / Problem: Pneumonia Discharge Goals Goal(s): Decrease discomfort Activity Recommendations Activity Level: Bedrest . Additional Information Patient informed of condition: Yes Advance Directives: No DNR: Yes Level of Care: Skilled Communicable Disease: No Prognosis: Stable Oxygen at (LPM): 3L of O2 Myers Catheter: Yes Instructions / Follow-Up Instructions / Follow-Up Ms. Powell is an 87 year old female admitted for acute hypoxic respiratory failure secondary to pneumonia. Palliative care was consulted - goals of care discussed with patient and POA ( Hector - son) and they have elected for comfort measures only, with no IV medications, no labs, and d/cing non-essential regular medications that are not for symptom relief. Pt wishes to be discharged back to [facility] on hospice. Acute hypoxic respiratory failure - secondary to worsening pneumonia (Aspiration vs HCAP) and CHF - discussed w/POA giving oral abx as pt is able to tolerate oral medication at this time - POA was ok with this - start augmentin 875 BID for 7 days. Pt received 2 doses here. Pt does have penicillin allergy listed but was able to tolerate zosyn without problems. Ideally would have given levaquin for pseudomonal coverage but pt has allergy to fluoroquinolones listed. - Continue Duonebs, Symbicort, Albuterol - Supplemental Oxygen as needed to maintain SpO2 > 92% - has been on 3L here Aortic Stenosis - pt does have moderate to severe aortic stenosis and moderate mitral regurgitation seen on ECHO - management not indicated given hospice status Chronic Pain - At this time having significant apnea along with underlying pain from multiple fractures being treated with pain control nonoperatively due to immobility - continue fentanyl 75mcg - roxanol 5mg q2h prn Atrial fibrillation/hypertension - d/c atorvastatin, bumetanide, mag oxide, apixaban - continue amlodipine, metoprolol tartrate, digoxin Diabetes mellitus - on insulin sliding scale in hospital - will defer sugar management to hospice care Glaucoma - Continue home eye drops GERD - d/c Protonix 40 mg IV daily. - continue oral zantac Current Hospital Diet Patient's current hospital diet: Regular Diet Discharge Diet Recommended Diet: Regular Diet Pending Studies Studies pending at discharge: no Laboratory Results Hemoglobin A1c Test 02/12/17 08:40 Range/Units Estimated Average Glucose 160 mg/dl Hemoglobin A1c 7.2 H 4.5-5.6 % Medical Emergencies . Who to Call and When: Medical Emergencies: If at any time you feel your situation is an emergency, please call 911 immediately. . Non-Emergent Contact Non-Emergency issues call your: Primary Care Provider . . "Provider Documentation" section prepared by Warren Rosales. . Core Measure Problem Core Measures: None
[2017-05-04] MEDS ORDERED: ROPINIROLE HCL 1 MG TAB PO SCH (20:00)
[2017-05-04] MEDS ORDERED: AMOXICILLIN/CLAVULANATE TAB 875 MG TAB PO ONE (20:00)
[2017-05-04] MEDS: SERTRALINE HCL 50 MG TAB PO SCH (22:15)
[2017-05-04] MEDS: LATANOPROST 0.005% OP SOLN 2.5 ML BTL OPB SCH (22:15)
[2017-05-05] VITALS (7 sets, daily range): BP systolic 142–161; BP diastolic 71; PULSE 60–62; TEMP 36.7; O2SAT 92–100
[2017-05-05] MEDS: CHECK FENTANYL PATCH PLACEMENT SCH ×2 (00:27→07:41)
[2017-05-05] MEDS: ALBUT/IPRATROP 3MG/0.5MG NEB 3 ML VIAL INH SCH ×3 (07:29→15:37)
[2017-05-05] MEDS: METOPROLOL TARTRATE 25 MG TAB PO SCH (07:40)
[2017-05-05] MEDS: AMLODIPINE BESYLATE 5 MG TAB PO SCH (07:41)
[2017-05-05] MEDS: RANITIDINE HCL 150 MG TAB PO SCH (07:41)
[2017-05-05] MEDS: BUDESONIDE/FORMOTEROL FUMARATE 160/4.5 60 PUFFS/INHALER INH SCH (07:42)
[2017-05-05] MEDS ORDERED: AMOXICILLIN/CLAVULANATE TAB 875 MG TAB PO SCH (08:00)
[2017-05-05] MEDS: GABAPENTIN 600 MG TAB PO SCH ×2 (08:16→13:49)
[2017-05-05] MEDS: INSULIN ASPART 100 UNITS/ML 3 ML PEN SC SCH ×2 (09:33→12:42)
--- NOTE | 2017-05-05 10:09 | Discharge Summary ---
Discharge Summary Date of Service May 05, 2017. Discharge Summary Admission Date: May 03, 2017 at 11:41 Discharge Date: May 05, 2017 [facility] Principal Diagnosis: Pneumonia Problems/Secondary Diagnoses: 1) Moderate Aortic Stenosis 2) Mitral Regurg 3) Atrial Fibrillation 4) DIabetes Mellitus 5) Glaucoma 6) GERD Immunizations: Have You Had Influenza Vaccine: No Influenza Vaccine Date: Jun 01, 2011 History of Tetanus Vaccine?: utd History of Pneumococcal: Yes Pneumococcal Date: Sep 02, 2012 History of Hepatitis B Vaccine: No Procedures: ECHO: * Moderate to severe valvular aortic stenosis. * There is moderate mitral regurgitation. * Right ventricular systolic pressure is elevated at >60mmHg. * There is mild mitral stenosis. * EF = 65-70% Consultations: Palliative Medication Reconciliation New Medications: Amoxicillin & Pot Clavulanate (Amoxicillin/Clavulanate P) 1 Tab Tab 875 MG PO BIDM for 7 Days, #14 TAB Fentanyl (Duragesic) 75 Mcg Tdsy 75 MCG TD Q72H for 30 Days Morphine Sulfate (Morphine Sulfate) 10 Mg/0.5 Ml Soln 5 MG PO Q2HWA PRN for Pain for 30 Days Continued Medications: Acetaminophen (Tylenol) 650 Mg Supp 1 SUPP IN Q6H PRN for temp > 101 do not exceed 3gm/24hr Acetaminophen Tab (Tylenol) 325 Mg Tab 650 MG PO Q6 PRN for Pain or Fever FOR TEMP >101F. NOT TO EXCEED 3GM/24HRS Albuterol Sulf (Proventil 0.083% 2.5MG/3ML) 2.5 Mg/3 Ml Nebu 2.5 MG INH Q6H, #1 BOX 2 Refills Amlodipine (Norvasc) 5 Mg Tab 5 MG PO DAILY HOLD IF SBP <100 AND OR HR <50 Bepotastine Besilate (Bepreve) 1.5 % Christiano 1 DROP OPB BID Budesonide/Formoterol Fumarate (Symbicort 160/4.5 Inhaler ) Aero 2 PUFFS INH BID, INHALER Digoxin (Digoxin) 0.125 Mg Tab 0.125 MG PO HS HOLD FOR HR <60 Gabapentin (Neurontin) 250 Mg/5 Ml Anna 600 MG PO TID Guaifenesin (Guaifenesin) 100 Mg/5 Ml Syp 10 ML PO TID [id number] Home O2 Therapy (Oxygen) Gas 3 LITER NA CONTINOUS Lactobacillus (Lactobacillus) 1 Tab Tab 1 TAB PO BID Latanoprost (Xalatan 0.005% Oph Anna) 0.005 % Anna 1 DROPS OPB HS, #2.5 ML 3 Refills Magnesium Oxide (Mag-Ox) 400 Mg Tab 400 MG PO BID, TAB Metoprolol Tartrate (Lopressor) (Lopressor) 25 Mg Tab 25 MG PO BID HOLD FOR SBP <100 FOR HR <60 Ranitidine Hcl (Zantac) 75 Mg/5 Ml Syp 150 MG PO BID, ML 2 Refills Ropinirole (Requip) 0.5 Mg Tab 0.5 MG PO DAILY, TAB Saline (Saline Nasal [place]) 0.65 % Spr 2 SPRAYS ADELA DAILY Sertraline (Zoloft) 50 Mg Tab 50 MG PO HS, TAB Umeclidinium-Vilanterol (Anoro Ellipta 62.5-25 Mcg/INH) 1 Aer Aer 1 INHA PO QAM Discontinued Medications: Apixaban (Eliquis) 2.5 Mg Tab 2.5 MG PO DAILY Ascorbic Acid (Ascorbic Acid) 250 Mg Tab 250 MG PO DAILY Atorvastatin (Lipitor) 40 Mg Tab 40 MG PO QPM, TAB Calcium Carbonate-Vitamin D (Oscal 500/200 D-3) 1 Tab Tab 1 TAB PO BID Cholecalciferol (Vitamin D3) 2,000 Unit Tab 2000 UNITS PO DAILY for 90 Days, TAB 3 Refills Fentanyl (Duragesic) 50 Mcg Tdsy 50 MCG TD CQ72HR for 30 Days, PATCH Ferrous Sulfate (Ferrous Sulfate) 220 Mg/5 Ml Elix 5 ML PO DAILY Insulin Aspart (Novolog Penfill) 100 Unit/Ml Inj 6 UNITS SC AC Insulin Aspart (Novolog) 100 Units/Ml Inj 100 SC DIRECTED inject per sliding scale 0-150= 0 units, 151-200 = 6 units, 201-250= 8 units, 251-300 = 10 units, 301-350 =12 units, 351-400 = 14 units, 401-450 = 16 units greater than 451 call Insulin Glargine (Lantus Solostar) 100 Unit/Ml Inj 10 UNITS SC QPM for 14 Days, #1 PEN Levothyroxine Sodium (Levothyroxine Sodium) 25 Mcg Tab 25 MCG PO Q2D for 30 Days, TAB 5 Refills Morphine Sulfate (Morphine Sulfate) 10 Mg/5 Ml Anna 6 MG PO Q3 hrs PRN for pain 1-10,dyspnea related Multivitamins/Minerals (Mvi With Minerals) Tab 1 TAB PO DAILY, TAB Potassium Chloride (Potassium Chloride) 20 Meq Soln 20 MEQ PO BID Discharge Exam Ms. Powell reports her pain in her right hip, arm and abdomen is slightly improved today. She wants to be discharged back to [facility] on hospice. She does not want any IV medications, but will tolerate oral medications. Review of Systems: Constitutional: + weakness, No fever, No chills Respiratory: No cough, No sputum Abdomen: + pain, No nausea, No vomiting Musculoskeletal: + joint pain (right hip, right arm) Physical Exam: General Appearance: WD/WN, no apparent distress Respiratory/Chest: no respiratory distress, no accessory muscle use, + decreased breath sounds Cardiovascular: regular rate, rhythm, + systolic murmur Abdomen / GI: soft, + tenderness (tender throughout) Extremities: + pertinent finding (right leg amputation) Neurologic/Psychiatric: alert, normal mood/affect Hospital Course Ms. Powell is an 87 year old female admitted for acute hypoxic respiratory failure secondary to pneumonia. Palliative care was consulted - goals of care discussed with patient and POA ( Hector - son) and they have elected for comfort measures only, with no IV medications, no labs, and d/cing non-essential regular medications that are not for symptom relief. Pt wishes to be discharged back to [facility] on hospice. Acute hypoxic respiratory failure - secondary to worsening pneumonia and suspected acute on chronic diastolic CHF - pt came in with AMS, likely secondary to metabolic encephalopathy in the setting of hypoxia - discussed w/POA giving oral abx as pt is able to tolerate oral medication at this time - POA was ok with this - start augmentin 875 BID. Pt does have penicillin allergy listed but was able to tolerate zosyn without problems. Ideally would have given levaquin for pseudomonal coverage but pt has allergy to fluoroquinolones listed. - Continue Duonebs, Symbicort, Albuterol - Supplemental Oxygen as needed to maintain SpO2 > 92% Chronic Pain - At this time having significant apnea along with underlying pain from multiple fractures being treated with pain control nonoperatively due to immobility - continue fentanyl 75mcg - roxanol 5mg q2h prn Atrial fibrillation/hypertension - d/c atorvastatin, bumetanide, mag oxide, apixaban - continue amlodipine, metoprolol tartrate, digoxin Diabetes mellitus - on insulin sliding scale in hospital - will defer sugar management to hospice care Glaucoma - Continue home eye drops GERD - d/c Protonix 40 mg IV daily. - continue oral zantac Resident Physician Supervision Note: I interviewed and examined the patient. Discussed with the resident physician and agree with findings and plan as documented in the note. I also discussed the case with case management and palliative care. The patient will be transferred to SNF with hospice services. Documented By: Nahid Valdes Total Time Spent: Less than 30 minutes This includes examination of the patient, discharge planning, medication reconciliation, and communication with other providers. Discharge Instructions Please refer to the electronic Patient Visit Report (Discharge Instructions) for additional information. Resident Tracking Resident Involvement: Resident Care Provided Care Provided: Adult Hospital Medicine
--- NOTE | 2017-05-05 15:24 | Palliative Care Progress Note ---
Palliative Care Progress Note Date of Service May 05, 2017. Subjective Pt evaluation today including: physical exam, chart review, conversation w/ vmware consultant, review of inpatient medication list Pain: none by exam PO Intake: none today Voiding: hamilton catheter in place Pt did not respond on exam, appears comfortable, respirations unlabored after neb treatment Review of Systems Unable to obtain - pt unresponsive to voice or touch Objective Vital Signs Date Time Temp Pulse Resp B/P (MAP) Pulse Ox O2 Delivery O2 Flow Rate FiO2 05/05/17 12:03 36.7 60 16 92 Nasal Cannula 05/05/17 11:22 60 16 92 Nasal Cannula 3.0 05/05/17 10:00 Nasal Cannula 3.0 05/05/17 07:30 62 16 94 Nasal Cannula 3.0 05/05/17 07:23 8 142/71 (94) Nasal Cannula 3.0 05/05/17 07:13 36.7 61 161/71 (101) 100 Nebulizer 05/05/17 00:00 98 Nasal Cannula 3.0 05/04/17 22:15 81 121/56 (77) 05/04/17 20:20 Nasal Cannula 3.0 05/04/17 19:01 69 16 98 Nasal Cannula 3.0 05/04/17 17:24 66 05/04/17 15:46 Nasal Cannula 3.0 Physical Exam General Appearance: no apparent distress Respiratory/Chest: no respiratory distress Cardiovascular: regular rate, rhythm, + pertinent finding (LLE edema) Abdomen: soft Extremities: + pertinent finding (R AKA) Neurologic/Psychiatric: + pertinent finding (unresponsive to voice/touch) Skin: warm/dry Laboratory Results Last 24 Hours Test 05/04/17 16:57 05/04/17 20:25 05/05/17 07:54 05/05/17 11:37 Bedside Glucose 185 mg/dl 147 mg/dl 169 mg/dl 175 mg/dl Assessment and Plan (1) Pneumonia Status: Acute Assessment & Plan: Pt and family agree to comfort care - Pt to be admitted to Hospice at [facility] (2) Respiratory distress Status: Acute Assessment & Plan: Improved - cont nebs and O2 for comfort as well as prn Roxanol (3) Altered mental status Status: Acute Assessment & Plan: Pt with brief rare periods of alertness - most of the time is somnolent Palliative Performance Scale: 20 % Continued [facility] stay due to: other (Pt to transfer back to [facility] on Hospice today) Discharge planning: other ([facility] with Hospice) Counseling and Coordination Total time 25 min with > 50% fo time spent at bedside and collaborating with case management
== END 2017-05-05 15:55 | disposition hospice, inpatient (51) | DRG 177 ==
LOC: EDBD 01:50 → C.EDB 01:51 → C.4E 05:32 → EDBEDREQ 05:39 → ENRESERV 06:31 → OBSVTOIN 11:41
PROVIDERS: ADMIT Student in an Organized Health Care Education/Training Program; ATTEND Family Medicine
DX: J69.0 Pneumonitis due to inhalation of food and vomit (principal); I50.33 Acute on chronic diastolic (congestive) heart failure; J96.01 Acute respiratory failure with hypoxia; G93.41 Metabolic encephalopathy; J44.0 Chronic obstructive pulmonary disease with (acute) lower respiratory infection; J18.9 Pneumonia, unspecified organism; Y95 Nosocomial condition; Z51.5 Encounter for palliative care; R62.7 Adult failure to thrive; I11.0 Hypertensive heart disease with heart failure; I48.91 Unspecified atrial fibrillation; I08.0 Rheumatic disorders of both mitral and aortic valves; S42.301D Unspecified fracture of shaft of humerus, right arm, subsequent encounter for fracture with routine healing; S72.001D Fracture of unspecified part of neck of right femur, subsequent encounter for closed fracture with routine healing; W19.XXXD Unspecified fall, subsequent encounter; E11.9 Type 2 diabetes mellitus without complications; H40.9 Unspecified glaucoma; K21.9 Gastro-esophageal reflux disease without esophagitis; F03.90 Unspecified dementia, unspecified severity, without behavioral disturbance, psychotic disturbance, mood disturbance, and anxiety; Z66 Do not resuscitate; Z74.01 Bed confinement status; Z89.611 Acquired absence of right leg above knee; Z99.81 Dependence on supplemental oxygen; Z86.14 Personal history of Methicillin resistant Staphylococcus aureus infection; Z79.01 Long term (current) use of anticoagulants; Z79.4 Long term (current) use of insulin; Z79.891 Long term (current) use of opiate analgesic; Z79.899 Other long term (current) drug therapy; Z88.0 Allergy status to penicillin; Z88.1 Allergy status to other antibiotic agents; Z88.2 Allergy status to sulfonamides; Z88.5 Allergy status to narcotic agent; Z88.6 Allergy status to analgesic agent; Z88.8 Allergy status to other drugs, medicaments and biological substances

== ENCOUNTER → 2017-06-08 | Outpatient (CLI) | payer OTHER ==
[~2017-06-08] MED LIST changes: -ALEN1TAB PO; -ALEN5SOL PO; -APIX1TAB PO; -ASCO250T5 PO; -ATOR-24 PO; -BACIOIN2 TOP; -BENZ100C7 PO; -BISA10SU7 PR; -BMX1 PO; -CALC200T PO; -CEFD300C3 PO; -CHOL20007 PO; -DEXT40GE MT; -DRGTP25 TD; +DRGTP75 TD; -FNTTP50 TD; -FRRS300 PO; -FSLL PO; -GABA-113 PO; -GFNSR600 PO; -GLGKIT IM; -INSDGIPEN SC; -INSU1INJ2 SC; -KCLI20/100 PO; -LEVO25TA5 PO; -LIQUID PROTEIN PO; -MCRK20 PO; -MOML PO; -MRPL10 PO; -MULT-506 PO; -MULT-513 PO; -NVLG SC; -ONDA4TAB10 SL; -RANI150T85 PO; -SODIENE PR; -VANC5CAP PO
== END ==
LOC: C.LABUPBEA 08:40
PROVIDERS: ATTEND Nurse Practitioner Family
DX: E03.9 Hypothyroidism, unspecified (principal)